=== PATIENT | male | born 1970 | race Caucasian/White ===

== ENCOUNTER 2021-06-01 10:54 | Outpatient (CLI) | payer MEDICAID, SELFPAY ==
[2021-06-01 11:32] LABS: Absolute Lymphocyte Count 3.02 X10^3/uL (0.83-4.51); Absolute Neutrophil Count 4.2 X10^3/uL (2.0-7.7); Basophil# 0.11 X10^3/uL; Basophil% 1.3 % (0-1); Eosinophils% 4.7 % (0-5); Hemoglobin 12.7 g/dL (13.0-16.5); Lymphocyte # 3.02 X10^3/ul (0.83-4.51); Lymphocyte % 35.6 % (19-41); Mean Corp Hgb Conc 33.4 g/dL (32-36); Mean Corpuscular Hgb 30.2 pg (27.0-32.0); Mean Corpuscular Volume 90.3 fL (80-94); Mean Platelet Vol. 9.1 fl (6.2-12.0); Monocyte# 0.71 X10^3/uL; Monocyte% 8.4 % (0-10); NRBC Flagged by Analyzer 0 % (0-5); Neutrophil # 4.23 X10^3/uL (2.7-7.7); Neutrophil % 49.8 % (47-70); Platelet Count 345 K/mm3 (150-450); RBC Distribution Width CV 13.2 % (11.6-14.6); RBC Distribution Width SD 43.6 fl (35.1-43.9); Red Blood Count 4.21 M/mm3 (4.6-6.2); White Blood Count 8.5 K/mm3 (4.4-11.0)
[2021-06-01 12:01] LABS: Hemoglobin A1c 5.4 % (3.8-5.6)
[2021-06-01 12:04] LABS: Vitamin B12 335 pg/mL (211-911); Vitamin D,25 Hydroxy 17.6 ng/mL
[2021-06-01 12:15] LABS: ALB/GLOB Ratio 0.9 RATIO (0.9-2.4); AST(SGOT) 17 U/L (15-37); Alanine Aminotransfer ALT/SGPT 32 U/L (16-61); Albumin, Serum 3.2 g/dL (3.2-5.0); Alkaline Phosphatase 104 U/L (45-117); Anion Gap 4 (5-15); BUN 12 mg/dL (7-18); BUN/Creat Ratio 14.9 RATIO (10-20); Calcium,Total 8.6 mg/dL (8.5-10.1); Chloride 108 mmol/L (98-107); Cholesterol 187 mg/dL (200); Creatinine, Serum 0.81 mg/dL (0.70-1.30); EST Glomerular Filtration Rate 107 mL/min (>60); Est Glom Filt Rate - Afr Amer 129 mL/min (>60); Globulin 3.5 g/dL (2.2-4.2); Glucose 87 mg/dL (74-106); High Density Lipoprotein 39 mg/dL; Potassium 3.8 mmol/L (3.5-5.1); Protein, Total 6.7 g/dL (6.4-8.2); Sodium Level 140 mmol/L (136-145); Thyroid Stim Hormone (TSH) 1.36 uIU/mL (0.358-3.74); Triglycerides 127 mg/dL; Very Low Density Lipoprotein 25 mg/dL (5-40)
[2021-06-02 21:04] LABS: PSA, Total 0.5 ng/mL (0.0-4.0)
== END 2021-06-01 23:59 | disposition home or self-care (01) ==
PROVIDERS: Visit Provider Nurse Practitioner Adult Health
DX: Z13.1 Encounter for screening for diabetes mellitus (principal); F33.2 Major depressive disorder, recurrent severe without psychotic features; F41.1 Generalized anxiety disorder; F90.2 Attention-deficit hyperactivity disorder, combined type; Z13.21 Encounter for screening for nutritional disorder; Z12.5 Encounter for screening for malignant neoplasm of prostate; G47.00 Insomnia, unspecified
CPT/HCPCS: 36415; 80053; 80061; 82306; 82607; 83036; 84153; 84443; 85025

== ENCOUNTER → 2021-11-09 | Outpatient (CLI) | payer MEDICAID, SELFPAY ==
[2021-11-09 17:57] LABS: Absolute Lymphocyte Count 1.91 X10^3/uL (0.83-4.51); Absolute Neutrophil Count 9.3 X10^3/uL (2.0-7.7); Basophil# 0.13 X10^3/uL; Eosinophil# 0.35 X10^3/uL; Eosinophils% 2.8 % (0-5); Hematocrit 40.3 % (40-54); Hemoglobin 13.4 g/dL (13.0-16.5); Lymphocyte # 1.91 X10^3/ul (0.83-4.51); Lymphocyte % 15.4 % (19-41); Mean Corp Hgb Conc 33.3 g/dL (32-36); Mean Corpuscular Hgb 29.1 pg (27.0-32.0); Mean Corpuscular Volume 87.4 fL (80-94); Mean Platelet Vol. 8.6 fl (6.2-12.0); Monocyte% 5.6 % (0-10); NRBC Flagged by Analyzer 0 % (0-5); Neutrophil # 9.27 X10^3/uL (2.7-7.7); Neutrophil % 74.8 % (47-70); Platelet Count 330 K/mm3 (150-450); RBC Distribution Width CV 13.2 % (11.6-14.6); RBC Distribution Width SD 42.3 fl (35.1-43.9); Red Blood Count 4.61 M/mm3 (4.6-6.2); White Blood Count 12.4 K/mm3 (4.4-11.0)
[2021-11-09 18:49] LABS: Vitamin B12 452 pg/mL (211-911); Vitamin D,25 Hydroxy 37.1 ng/mL
[2021-11-09 18:55] LABS: ALB/GLOB Ratio 0.9 RATIO (0.9-2.4); AST(SGOT) 18 U/L (15-37); Alanine Aminotransfer ALT/SGPT 25 U/L (16-61); Albumin, Serum 3.7 g/dL (3.2-5.0); Alkaline Phosphatase 97 U/L (45-117); Anion Gap 7 (5-15); BUN 10 mg/dL (7-18); Calcium,Total 9.3 mg/dL (8.5-10.1); Chloride 106 mmol/L (98-107); Cholesterol 261 mg/dL (200); EST Glomerular Filtration Rate 83 mL/min (>60); Est Glom Filt Rate - Afr Amer 100 mL/min (>60); Globulin 3.9 g/dL (2.2-4.2); Glucose 93 mg/dL (74-106); High Density Lipoprotein 43 mg/dL; Iron 77 ug/dL (65-175); Iron Binding Capacity,Total 290 ug/dL (250-450); Potassium 3.9 mmol/L (3.5-5.1); Protein, Total 7.6 g/dL (6.4-8.2); Sodium Level 140 mmol/L (136-145); T4 Free Direct 0.61 ng/dL (0.76-1.46); Thyroid Stim Hormone (TSH) 2.36 uIU/mL (0.358-3.74); Triglycerides 235 mg/dL; Very Low Density Lipoprotein 47 mg/dL (5-40)
== END | disposition home or self-care (01) ==
LOC: LAB 17:40
PROVIDERS: Referring Provider Nurse Practitioner Adult Health; Visit Provider Nurse Practitioner Adult Health
DX: G25.0 Essential tremor (principal)
CPT/HCPCS: 80053; 80061; 82306; 82607; 83540; 83550; 84439; 84443; 85025

== ENCOUNTER 2021-11-23 20:54 | Emergency (ER) | payer MEDICAID, SELFPAY ==
[2021-11-23 20:55] VITALS: BP 156/82; PULSE 91; RESP 15; TEMP 36.8; O2SAT 97; BMI 34.2
--- NOTE | 2021-11-23 22:22 | EX.ED.VIS.EY ---
HPI History of Present Illness Chief Complaint: Eye Problem Narrative Narrative: Patient is a 51-year-old male with past medical history of cataract status post surgery insomnia and depression/anxiety. He states that he had bilateral cataract surgery approximately 2 months ago. He states since that time he has been having a glare to his vision. He states that he is followed up with the upsetting machine operator and they have just told him that he may have dry eyes. He states he is also noticed dark spots in his vision that can change when he moves his eye. He states that this is bilaterally and it can come and go. He states he feels like it was a little more severe today and secondary to this comes in for evaluation [facility] Medical History Anxiety Cataract (lens) fragments in eye following cataract surgery, bilateral Depression Smoker Home Medications brexpiprazole 2 mg tablet (Rexulti) 2 tab PO DAILY 11/23/21 [History Last Taken Unknown] buspirone 7.5 mg tablet 7.5 tab PO DAILY 11/23/21 [History Last Taken Unknown] fluoxetine 40 mg capsule 80 cap PO DAILY 11/23/21 [History Last Taken Unknown] methylphenidate HCl 20 mg tablet (Ritalin) 60 tab PO DAILY 11/23/21 [History Last Taken Unknown] prazosin 1 mg capsule 2 mg PO QHS 11/23/21 [History Last Taken Unknown] prazosin 1 mg capsule (Minipress) 1 cap PO LUNCH 11/23/21 [History Last Taken Unknown] zolpidem 10 mg tablet (Ambien) 10 tab PO QHS 11/23/21 [History Last Taken Unknown] Allergy/AdvReac Type Severity Reaction Status Date / Time No Known Allergies Allergy Verified 11/23/21 20:58 Social History Smoking Status: Current every day smoker tobacco type: e-cigarettes ROS ROS ED Constitutional Constitutional ED: Denies chills or fever(s) Eyes Eyes: Reports change in vision ENT ENT ED: Denies sore throat Cardiovascular Cardiovascular: Denies chest pain Respiratory/Chest Respiratory/Chest: Denies cough or dyspnea Gastrointestinal Gastrointestinal: Denies abdominal pain, diarrhea, nausea or vomiting Genitourinary Genitourinary ED: Denies dysuria Musculoskeletal Musculoskeletal: Denies myalgias Integumentary Denies rash Neurologic Neurologic: Denies headache(s) Hematologic/Lymphatic Hematologic/Lymphatic: Denies easy bleeding or easy bruising EXAM Physical Exam Const Vital Signs: 11/23/21 20:55 Temperature 98.2 F Temperature Source Temporal Pulse Rate 91 Respiratory Rate 15 Blood Pressure 156/82 H Blood Pressure Mean 106 Pulse Ox 97 Oxygen Delivery Method Room Air Positive well nourished and well developed General Appearance ED: well developed Eyes PERRL and EOMs intact bilaterally Eyes Narrative: No pale macula noted no blood and thunder appearance noted. Patient does have normal geronimo of vision in both eyes. Neck supple Resp normal respiratory effort and clear to auscultation bilaterally Cardio regular rate and regular rhythm Extremity normal to inspection Neuro oriented x3 and CN's II-XII intact bilaterally Sensorium / Orientation: alert Psych Psych Narrative: Patient has a flat affect Skin no rashes or lesions noted MDM MDM MDM Narrative Medical decision making narrative: Patient presented to the ER with a normal neurologic exam. He reported the symptoms have been present for months. There was no loss of vision from either eye there is no physical exam findings suggesting retinal artery or vein occlusion. He talked about how the dark spots or change positions with eye movement indicating this is most likely vitreous floater. We discussed possible work-up in the ER but his exam does not suggest infection trauma or stroke and therefore do not feel is necessary for head CT or blood work. Patient wishes for a second opinion and therefore he will be referred to [facility]. However at this time as his exam is consistent with vitreous floaters and there is no signs of a acute vision loss such as retinal artery or vein occlusion retinal detachment or eye trauma he is otherwise safe for discharge Discharge Plan Triage Chief Complaint: Eye Problem ED Provider: Franklyn Callahan Dx/Rx/DC Orders Clinical Impression: Vitreous floaters of both eyes Instructions: What Are Flashes and Floaters? Prescriptions: No Action fluoxetine 40 mg capsule 80 cap PO DAILY Label Comments: TAKE 2 CAPSULES BY MOUTH ONCE DAILY methylphenidate HCl [Ritalin] 20 mg tablet 60 tab PO DAILY Label Comments: TAKE 1 TABLET THREE TIMES DAILY prazosin 1 mg capsule 2 mg PO QHS Label Comments: take 1 capsule daily at 2 pm and 2 capsules by mouth at bedtime prazosin [Minipress] 1 mg capsule 1 cap PO LUNCH Label Comments: take 1 capsule daily at 2 pm and 2 capsules by mouth at bedtime buspirone 7.5 mg tablet 7.5 tab PO DAILY Label Comments: TAKE 1 TABLET BY MOUTH TWICE DAILY zolpidem [Ambien] 10 mg tablet 10 tab PO QHS Label Comments: TAKE 1 TABLET BY MOUTH EVERY EVENING for insomnia. Rexulti 2 mg tablet 2 tab PO DAILY Label Comments: take one tablet by mouth every morning Primary Care Provider: [facility],Rosangela Sy Referrals: Best Corbett MD [Med Staff - Active Staff] - [facility] [Primary Care Provider] - Activity Restrictions/Additional Instructions: Please follow-up with ophthalmology for repeat evaluation and return to the ER should you have any further concerns Disposition Disposition: Home, Self Care Discharge Date/Time: 11/23/21 22:34
[2021-11-23 22:34] VITALS: BP 154/60; PULSE 87; RESP 18
== END 2021-11-23 22:34 | disposition home or self-care (01) ==
PROVIDERS: Emergency Provider Emergency Medicine; Visit Provider Emergency Medicine
DX: H43.393 Other vitreous opacities, bilateral (principal); F17.290 Nicotine dependence, other tobacco product, uncomplicated
CPT/HCPCS: 99282

== ENCOUNTER 2022-03-06 18:35 | Emergency (ER) | payer MEDICAID, SELFPAY ==
[2022-03-06 18:35] VITALS: BP 121/71; PULSE 101; RESP 16; TEMP 36.8; O2SAT 96; BMI 33.3
--- NOTE | 2022-03-06 19:33 | CT_ITS ---
INDICATION: trauma EXAMINATION: CT Spine Cervical W/O Contrast Injection TECHNIQUE: Helically acquired images were obtained of the cervical spine. 2D reformatted images were reviewed. A radiation dose optimization technique was used for this scan. IV Contrast dosage and agent: None. COMPARISON: None. FINDINGS: VERTEBRAE: No fracture or traumatic subluxation. No discrete lytic or blastic abnormality. Normal alignment. Normal craniocervical junction and cervicothoracic junction. DISCS and SPINAL CANAL: Moderate multilevel degenerative disc disease and spondylosis. No critical stenosis. NECK SOFT TISSUES: No prevertebral soft tissue swelling. There is no cervical adenopathy. LUNG APICES: Clear. CT/Spine Cervical without Contras IMPRESSION: No evidence of acute cervical spinal fracture or spondylolisthesis. Moderate multilevel degenerative disc disease and spondylosis. Electronically Signed: Hunter Alexandre MD at 21:19 EST ,
--- NOTE | 2022-03-06 19:33 | CT_ITS ---
EXAMINATION : Head CT w/out contrast HISTORY : trauma COMPARISON : None. TECHNIQUE : Multiple contiguous axial images were obtained from the skull base to the vertex without intravenous contrast. A radiation dose optimization technique was used for this scan. FINDINGS : The ventricles and sulci are normal in size. There is no evidence for acute intracranial hemorrhage, mass effect, or midline shift. There is no extra-axial fluid collection. There is normal gibson-white differentiation, without CT evidence of acute ischemia or infarct. The skull base and calvarium are unremarkable. The orbits are unremarkable. The paranasal sinuses are clear. The mastoid air cells are well-aerated. The soft tissues are unremarkable. CT/Brain/Head without Contrast IMPRESSION: No acute intracranial abnormality. Electronically Signed: Hunter Alexandre MD at 21:18 EST ,
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
--- NOTE | 2022-03-06 20:00 | RAD_ITS ---
INDICATION: trauma EXAMINATION/TECHNIQUE: X-RAY - XR Spine Lumbar 2 or 3 Views COMPARISON: None. FINDINGS: VERTEBRAE: Preserved vertebral body height. No fracture. No spondylolisthesis. Preservation of the normal lumbar lordosis. Moderate multilevel facet arthropathy. DISCS: Moderate multilevel degenerative disc disease and spondylosis. INCLUDED ABDOMEN: Included bowel gas pattern is non-obstructive. RAD/Lumbar Spine 2 or 3 Views IMPRESSION: No evidence of lumbar spinal fracture or spondylolisthesis. Moderate multilevel degenerative disc disease and spondylosis. Electronically Signed: Hunter Alexandre MD at 21:20 EST ,
[2022-03-06 21:37] VITALS: BP 110/68; PULSE 90; RESP 15; O2SAT 98
== END 2022-03-06 21:38 | disposition home or self-care (01) ==
PROVIDERS: Emergency Provider Emergency Medicine; Visit Provider Emergency Medicine
DX: S06.0X0A Concussion without loss of consciousness, initial encounter (principal); F17.290 Nicotine dependence, other tobacco product, uncomplicated; W10.9XXA Fall (on) (from) unspecified stairs and steps, initial encounter
CPT/HCPCS: 70450; 72100; 72125; 99284

== ENCOUNTER 2022-09-23 21:24 | Emergency (ER) | payer MEDICAID, SELFPAY ==
[2022-09-23 21:25] VITALS: TEMP 36.1; BMI 31.7
[2022-09-23 21:37] VITALS: BP 133/75; PULSE 67; RESP 20; O2SAT 93
--- NOTE | 2022-09-23 22:09 | EKG12_ITS ---
Test Reason : DYSRHYTHMIA Blood Pressure : / mmHG Vent. Rate : 078 BPM Atrial Rate : 078 BPM P-R Int : 164 ms QRS Dur : 104 ms QT Int : 414 ms P-R-T Axes : 057 032 047 degrees QTc Int : 471 ms Normal sinus rhythm Normal ECG Confirmed by JAYDA MCLAUGHLIN, RIANNA ([id number]), society editor DIANE ALVARADO ([id number]) on 09/25/2022 11:35:37 AM Referred By: HAIR Confirmed By:RIANNA MONTELONGO MD
--- NOTE | 2022-09-23 22:23 | ED.RN ---
pt refused covid swab and blood work. hitting at staff and swearing.
--- NOTE | 2022-09-23 22:27 | ED.RN ---
physician discussed with pt to stay for labs, otherwise he can get his clothes and leave the ED. Pt yelling at staff, getting dressed.
[2022-09-23 22:46] LABS: Amphetamine Urine VISTA NEGATIVE (<1000 ng/mL); Barbiturate Urine VISTA NEGATIVE (< 200 ng/mL); Benzodiazepine Urine VISTA NEGATIVE (< 200 ng/mL); Cocaine Urine VISTA NEGATIVE (< 300 ng/mL); Ecstacy Urine VISTA NEGATIVE (< 500 ng/mL); Methadone Urine VISTA NEGATIVE (< 300 ng/mL); PCP Urine VISTA NEGATIVE (< 25 ng/mL); THC Urine VISTA POSITIVE (< 50 ng/mL); Vista UDS pH Range 6
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
== END 2022-09-23 22:32 | disposition home or self-care (01) ==
PROVIDERS: Emergency Provider Emergency Medicine; Visit Provider Emergency Medicine
DX: F32.A Depression, unspecified (principal); F10.129 Alcohol abuse with intoxication, unspecified; Z79.899 Other long term (current) drug therapy; F41.9 Anxiety disorder, unspecified; F17.290 Nicotine dependence, other tobacco product, uncomplicated
CPT/HCPCS: 80307; 93005; 99283

== ENCOUNTER 2022-09-24 00:37 | Outpatient (REF) | payer SELFPAY ==
[2022-09-24 00:38] VITALS: BP 120/65; PULSE 91; RESP 18; TEMP 36.6; O2SAT 95; BMI 32.1
[2022-09-24] MEDS: Diphth,Pertuss(Acell),Tet Vac 0.5 ML Vial IM (00:46)
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
== END 2022-09-24 01:06 ==
LOC: ED 00:37
PROVIDERS: Visit Provider Emergency Medicine
DX: R45.851 Suicidal ideations (principal); F10.129 Alcohol abuse with intoxication, unspecified; X78.9XXA Intentional self-harm by unspecified sharp object, initial encounter; Y90.9 Presence of alcohol in blood, level not specified; S51.812A Laceration without foreign body of left forearm, initial encounter; R45.850 Homicidal ideations; F41.9 Anxiety disorder, unspecified; F32.A Depression, unspecified; F17.290 Nicotine dependence, other tobacco product, uncomplicated; Z79.899 Other long term (current) drug therapy; Z23 Encounter for immunization
CPT/HCPCS: 12002; 90715; 90471

== ENCOUNTER 2022-09-25 10:53 | Emergency (ER) | payer MEDICAID, SELFPAY ==
[2022-09-25 10:53] VITALS: BP 135/80; PULSE 66; RESP 16; TEMP 36.7; O2SAT 100; BMI 30.2
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
[2022-09-25] MEDS: Acetaminophen 325 MG Tablet 650 MG PO (12:33)
[2022-09-25 13:00] VITALS: BP 124/78; PULSE 78; RESP 16; O2SAT 98
[2022-09-25 13:06] LABS: Absolute Lymphocyte Count 2.47 X10^3/uL (0.83-4.51); Absolute Neutrophil Count 6.8 X10^3/uL (2.0-7.7); Basophil% 0.9 % (0-1); Eosinophil# 0.52 X10^3/uL; Eosinophils% 4.9 % (0-5); Hematocrit 38.2 % (40-54); Hemoglobin 12.6 g/dL (13.0-16.5); Lymphocyte # 2.47 X10^3/ul (0.83-4.51); Lymphocyte % 23.3 % (19-41); Mean Corpuscular Hgb 28.6 pg (27.0-32.0); Mean Corpuscular Volume 86.6 fL (80-94); Mean Platelet Vol. 8.4 fl (6.2-12.0); Monocyte# 0.72 X10^3/uL; Monocyte% 6.8 % (0-10); NRBC Flagged by Analyzer 0 % (0-5); Neutrophil # 6.77 X10^3/uL (2.7-7.7); Neutrophil % 63.7 % (47-70); Platelet Count 299 K/mm3 (150-450); RBC Distribution Width CV 13.7 % (11.6-14.6); RBC Distribution Width SD 43.9 fl (35.1-43.9); Red Blood Count 4.41 M/mm3 (4.6-6.2); White Blood Count 10.6 K/mm3 (4.4-11.0)
[2022-09-25 13:19] LABS: Anion Gap 6 (5-15); BUN 9 mg/dL (7-18); Calcium,Total 8.7 mg/dL (8.5-10.1); Chloride 106 mmol/L (98-107); EST Glomerular Filtration Rate 94 mL/min (>60); Est Glom Filt Rate - Afr Amer 113 mL/min (>60); Estimated Creatinine Clearance 93.83 ml/min; Glucose 96 mg/dL (74-106); Potassium 3.7 mmol/L (3.5-5.1); Sodium Level 140 mmol/L (136-145)
[2022-09-25 13:39] LABS: Alcohol, Blood (Medical)-Serum < 3.0 mg/dL
[2022-09-25 13:52] LABS: Amphetamine Urine VISTA NEGATIVE (<1000 ng/mL); Barbiturate Urine VISTA NEGATIVE (< 200 ng/mL); Benzodiazepine Urine VISTA NEGATIVE (< 200 ng/mL); Cocaine Urine VISTA NEGATIVE (< 300 ng/mL); Ecstacy Urine VISTA NEGATIVE (< 500 ng/mL); Methadone Urine VISTA NEGATIVE (< 300 ng/mL); PCP Urine VISTA NEGATIVE (< 25 ng/mL); THC Urine VISTA POSITIVE (< 50 ng/mL); Vista UDS pH Range 6
--- NOTE | 2022-09-25 15:51 | NURSING ---
FAXED CHART TO CRISIS
[2022-09-25] MEDS: tiZANidine HCl 2 MG Tablet 4 MG PO (16:09)
[2022-09-25] MEDS: Fluoxetine HCl 40 MG CAPSULE 80 MG PO (16:09)
[2022-09-25] MEDS: Methylphenidate HCl 5 MG Tablet 20 MG PO (16:09)
[2022-09-25 17:00] VITALS: BP 132/81; PULSE 81; RESP 16; O2SAT 99
[2022-09-25 20:00] VITALS: RESP 16
[2022-09-25] MEDS: Zolpidem Tartrate 5 MG Tablet PO (20:58)
[2022-09-25 22:35] VITALS: RESP 16
[2022-09-26 00:40] VITALS: RESP 16
[2022-09-26] MEDS: LORazepam 1 MG Tablet PO (02:43)
[2022-09-26 02:45] VITALS: BP 142/79; PULSE 89; RESP 18; O2SAT 100
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
[2022-09-26 06:52] VITALS: BP 136/70; PULSE 75; RESP 18
== END 2022-09-26 06:56 ==
LOC: ED 12:17
PROVIDERS: Emergency Provider Emergency Medicine; Visit Provider Emergency Medicine
DX: F10.129 Alcohol abuse with intoxication, unspecified (principal); S51.812A Laceration without foreign body of left forearm, initial encounter; Y04.8XXA Assault by other bodily force, initial encounter; F17.210 Nicotine dependence, cigarettes, uncomplicated; F32.A Depression, unspecified; Y90.9 Presence of alcohol in blood, level not specified
CPT/HCPCS: 80048; 80307; 82077; 85025; 99285

== ENCOUNTER 2022-10-01 20:41 | Emergency (ER) | payer MEDICAID, SELFPAY ==
[2022-10-01 20:41] VITALS: BP 113/62; PULSE 94; RESP 18; TEMP 36.8; O2SAT 97; BMI 32.7
--- NOTE | 2022-10-01 21:11 | CT_ITS ---
EXAM: CT HEAD WITHOUT INTRAVENOUS CONTRAST CLINICAL INDICATION: Head injury TECHNIQUE: Multiple axial images were obtained of the head without intravenous contrast. This CT exam was performed using one or more of the following dose reduction techniques: automated exposure control, adjustment of the mA and/or kV according to patient size, and/or use of iterative reconstruction technique. RADIATION DOSE: CTDIvol = 44.99 mGy, DLP = 846.73 mGy-cm COMPARISON: March 06, 2022. FINDINGS: BRAIN AND EXTRA-AXIAL SPACES: Unremarkable. No intra- or extra-axial hemorrhage. No evidence of acute infarct. No intracranial mass or mass effect. There is preservation of the miller/white matter interface. Posterior fossa structures are unremarkable. Ventricles are appropriate for age. No hydrocephalus. Basal cisterns are patent. BONES/JOINTS: See below. SOFT TISSUES: There is laceration and contusion in the right posterior lateral scalp. No underlying skull fracture. SINUSES: Right nasal septal deviation and large left cruz bullosa severely noted. The floors of the maxillary sinuses are not included. MASTOID AIR CELLS: Unremarkable. Clear. ORBITS: Visualized globes, extraocular muscles, optic nerves and retrobulbar fat appear unremarkable. CT/Brain/Head without Contrast IMPRESSION: No acute intracranial abnormality. Scalp laceration and contusion. Electronically Signed: Britt Reid MD at 22:22 EDT ,
[2022-10-01 21:27] LABS: Absolute Lymphocyte Count 3.23 X10^3/uL (0.83-4.51); Absolute Neutrophil Count 5.8 X10^3/uL (2.0-7.7); Basophil# 0.09 X10^3/uL; Basophil% 0.9 % (0-1); Eosinophil# 0.33 X10^3/uL; Eosinophils% 3.2 % (0-5); Hematocrit 33.8 % (40-54); Hemoglobin 11.4 g/dL (13.0-16.5); Lymphocyte # 3.23 X10^3/ul (0.83-4.51); Lymphocyte % 31.4 % (19-41); Mean Corp Hgb Conc 33.7 g/dL (32-36); Mean Corpuscular Hgb 29.2 pg (27.0-32.0); Mean Corpuscular Volume 86.4 fL (80-94); Mean Platelet Vol. 9.1 fl (6.2-12.0); Monocyte# 0.76 X10^3/uL; Monocyte% 7.4 % (0-10); NRBC Flagged by Analyzer 0 % (0-5); Neutrophil # 5.82 X10^3/uL (2.7-7.7); Neutrophil % 56.5 % (47-70); Platelet Count 256 K/mm3 (150-450); RBC Distribution Width CV 13.2 % (11.6-14.6); RBC Distribution Width SD 41.5 fl (35.1-43.9); Red Blood Count 3.91 M/mm3 (4.6-6.2); White Blood Count 10.3 K/mm3 (4.4-11.0)
[2022-10-01] MEDS: 0.9% Normal Saline 1,000 ML 1000 ML IV (21:46)
[2022-10-01] MEDS: Lidocaine 1% /Epi 1:100 (20ml) 20 ML Vial INFILT (21:47)
[2022-10-01 21:48] VITALS: BP 122/78; RESP 18; O2SAT 96
[2022-10-01 21:48] LABS: ALB/GLOB Ratio 0.9 RATIO (0.9-2.4); AST(SGOT) 17 U/L (15-37); Alanine Aminotransfer ALT/SGPT 24 U/L (16-61); Albumin, Serum 3.2 g/dL (3.2-5.0); Alkaline Phosphatase 78 U/L (45-117); Anion Gap 8 (5-15); BUN 12 mg/dL (7-18); BUN/Creat Ratio 15.3 RATIO (10-20); Calcium,Total 8.6 mg/dL (8.5-10.1); Chloride 105 mmol/L (98-107); Creatinine, Serum 0.78 mg/dL (0.70-1.30); EST Glomerular Filtration Rate 110 mL/min (>60); Est Glom Filt Rate - Afr Amer 133 mL/min (>60); Estimated Creatinine Clearance 104.74 ml/min; Globulin 3.5 g/dL (2.2-4.2); Glucose 103 mg/dL (74-106); Potassium 3.4 mmol/L (3.5-5.1); Protein, Total 6.7 g/dL (6.4-8.2); Sodium Level 139 mmol/L (136-145); Troponin-I HS 11 pg/mL (3.0-78.0)
[2022-10-01 22:12] VITALS: BP 142/67; PULSE 83; RESP 16; O2SAT 97
--- NOTE | 2022-10-01 23:55 | ED.RN ---
pt yelling out. pt found laying on the floor covered in pee. pt assisted back to bed x2. no new injuries noted. slight bleeding to back of head where lac already was. Dr. Welch notified. no new orders. vs 115/63 hr 70 O2 97% RA.
[2022-10-02] VITALS: BP 111/46; PULSE 79; RESP 17; O2SAT 95
[2022-10-02 00:21] LABS: Bacteria 0 SEEN /hpf (None Seen); Mucous, Urine 0 SEEN /hpf (<or=2+); Red Blood Cells-Urine 0 SEEN /hpf (0-5); Squamous Epithelial Cells - UA 0 SEEN /hpf (0-5); White Blood Cells 0 SEEN /hpf (0-5)
[2022-10-02 00:42] LABS: Color, Urine Yellow (Yellow); Glucose, Dipstick Normal (Normal); Ketone-Dipstick Negative (Negative); Leukocyte Esterase-Dipstick Negative /ul (Negative); Nitrite-Dipstick Negative (Negative); Occult Blood-Urine Negative /ul (Negative); Protein-Dipstick Negative (Negative); Specific Gravity, Urine 1.005 (1.002-1.030); Urine Bilirubin Dipstick Negative (Negative); Urine Clarity Clear (Clear); Urine Urobilinogen Normal (Normal)
[2022-10-02 01:00] VITALS: BP 106/55; PULSE 79; RESP 15; O2SAT 99
[2022-10-02 01:06] LABS: Amphetamine Urine VISTA NEGATIVE (<1000 ng/mL); Barbiturate Urine VISTA NEGATIVE (< 200 ng/mL); Benzodiazepine Urine VISTA NEGATIVE (< 200 ng/mL); Cocaine Urine VISTA NEGATIVE (< 300 ng/mL); Ecstacy Urine VISTA NEGATIVE (< 500 ng/mL); Methadone Urine VISTA NEGATIVE (< 300 ng/mL); PCP Urine VISTA NEGATIVE (< 25 ng/mL); THC Urine VISTA NEGATIVE (< 50 ng/mL); Vista UDS pH Range 6
--- NOTE | 2022-10-02 01:31 | EX.ED.GENINJ ---
HPI History of Present Illness Chief Complaint: Fall Informant: EMS Limited: intoxicated and uncooperative Onset/Context/Timing Onset: Today Mechanism/Context: Fall Location: Occipital scalp Narrative Narrative: Patient presents with head injury that occurred tonight. Patient was found laying on the ground tonight. EMS noted laceration to his scalp. Patient is nonverbal. Patient is a poor informant. EMS reports they were called for patient being found laying on the sidewalk. EMS reports patient did wake up briefly and was asked if he had any neck pain. Patient denies any neck pain to EMS. Patient is moving all of his extremities and is uncooperative on my examination. Patient does not give any further history. PFSH PFSH Medical History Alcohol abuse Anxiety Cataract (lens) fragments in eye following cataract surgery, bilateral Depression Smoker Home Medications brexpiprazole 2 mg tablet (Rexulti) 2 tab PO DAILY 11/23/21 [History Last Taken Unknown] fluoxetine 40 mg capsule 80 cap PO DAILY 11/23/21 [History Last Taken Unknown] methylphenidate HCl 20 mg tablet (Ritalin) 20 tab PO TID 11/23/21 [History Last Taken Unknown] prazosin 1 mg capsule 2 mg PO QHS 11/23/21 [History Last Taken Unknown] prazosin 1 mg capsule (Minipress) 1 cap PO LUNCH 11/23/21 [History Last Taken Unknown] zolpidem 10 mg tablet (Ambien) 10 tab PO QHS 11/23/21 [History Last Taken Unknown] methylphenidate HCl 60 mg biphasic 30-70 capsule,extended release 60 mg PO DAILY 09/25/22 [History Last Taken Unknown] tizanidine 4 mg tablet 4 mg PO DAILY 09/25/22 [History Last Taken Unknown] Allergy/AdvReac Type Severity Reaction Status Date / Time No Known Allergies Allergy Verified 09/24/22 00:38 Social History Smoking Status: Current every day smoker tobacco type: e-cigarettes ROS ROS ED Review of Systems ROS Unobtainable: due to mental condition and due to mental status EXAM Physical Exam Const Vital Signs: 10/01/22 20:41 10/01/22 20:49 10/01/22 21:48 Temperature 98.2 F Temperature Source Axillary Pulse Rate 94 Respiratory Rate 18 18 Respiratory Effort Normal Non-Labored Respiratory Depth Normal Respiratory Pattern Normal Blood Pressure 113/62 122/78 H Blood Pressure Mean 79 92 Pulse Ox 97 96 Oxygen Delivery Method Room Air Room Air 10/01/22 22:12 10/02/22 00:00 10/02/22 01:00 Temperature Temperature Source Pulse Rate 83 79 79 Respiratory Rate 16 17 15 Respiratory Effort Respiratory Depth Respiratory Pattern Blood Pressure 142/67 H 111/46 L 106/55 L Blood Pressure Mean 92 67 72 Pulse Ox 97 95 99 Oxygen Delivery Method Room Air Room Air Room Air Positive well nourished and well developed General Appearance ED: well developed and NAD HEENT HEENT Narrative: There is a 4 cm full-thickness laceration over the right parietal/occipital scalp. There is moderate gapping of the wound margins. There is no foreign bodies. There is no bony crepitance or step-off noted. Neck full ROM Resp normal respiratory effort and clear to auscultation bilaterally Cardio regular rhythm Rate: regular rate GI non-tender Palpation: soft Neuro moves all extremities, no focal motor deficits and no sensory deficits noted Jolon Coma Scale: document GCS findings Spontaneous Localizes to Pain Confused 13 Sensorium / Orientation: alert Motor Exam: strength 5/5 throughout PROC Procedures Lacerations Right occipital/parietal scalp: Length: 4 cm Depth: Sub Q Shape: Linear Prep: Sterile Conditions and Chlorhexadine Laceration repair: Lidocaine with epi and Local Number of Sutures/Benge: 8 Suture Information: - (Wilian) MDM MDM MDM Narrative Medical decision making narrative: Differential diagnosis includes closed head injury, concussion, alcohol intoxication, intracranial bleeding, anemia, and electrolyte abnormality. CBC will be obtained to assess for leukocytosis and anemia. Comprehensive metabolic profile will be obtained to assess for electrolyte abnormality, renal function, and hepatic function. High-sensitivity troponin will be obtained to assess for cardiac ischemia. Urinalysis will be obtained to assess for urinary tract infection. Serum alcohol level will be obtained to assess for alcohol intoxication. Urine drug screen will be obtained to assess for substance abuse. CT scan of the brain will be obtained to assess for intracranial bleeding. Lab Data Attestation: I reviewed the patient's lab results. Lab results narrative: CBC was reviewed. There is a stable anemia with a hemoglobin of 11.4 and hematocrit of 33.8. Comprehensive metabolic profile was reviewed and was essentially within normal limits. High-sensitivity troponin was reviewed and was normal. Urinalysis was reviewed and was normal. Blood alcohol level was reviewed and was slightly elevated at 88. Urine tox screen was reviewed and was negative. Labs: Laboratory Results - last 24 hr 10/01/22 10/01/22 10/01/22 20:56 20:56 20:56 WBC 10.3 RBC 3.91 L Hgb 11.4 L Hct 33.8 L MCV 86.4 MCH 29.2 MCHC 33.7 RDW Std Deviation 41.5 RDW Coeff of Danish 13.2 Plt Count 256 MPV 9.1 Immature Gran % (Auto) 0.600 Neut % (Auto) 56.5 Lymph % (Auto) 31.4 [place] % (Auto) 7.4 Eos % (Auto) 3.2 Baso % (Auto) 0.9 Absolute Neuts (auto) 5.8 Absolute Lymphs (auto) 3.23 Nucleated RBC % 0 Sodium 139 Potassium 3.4 L Chloride 105 Carbon Dioxide 26.0 Anion Gap 8 BUN 12 Creatinine 0.78 Estim Creat Clear Calc 104.74 Est GFR (MDRD) Af Amer 133 Est GFR (MDRD) Non-Af 110 BUN/Creatinine Ratio 15.3 Glucose 103 Calcium 8.6 Total Bilirubin 0.20 AST 17 ALT 24 Alkaline Phosphatase 78 Troponin I High Sens 11 Total Protein 6.7 Albumin 3.2 Globulin 3.5 Albumin/Globulin Ratio 0.9 Urine Color Urine Clarity Urine pH Ur Specific [place] Urine Protein Urine Glucose (UA) Urine Ketones Urine Occult Blood Urine Nitrite Urine Bilirubin Urine Urobilinogen Ur Leukocyte Esterase Urine RBC Urine WBC Ur Squamous Epith Cells Urine Bacteria Urine Mucus Urine Opiates Screen Urine Methadone Screen Ur Barbiturates Screen Ur Phencyclidine Scrn Ur Amphetamines Screen MDMA (Ecstasy) Screen U Benzodiazepines Scrn Urine Cocaine Screen U Cannabinoids Screen Ur Drug Screen Comment Ethyl Alcohol 88.0 10/02/22 10/02/22 00:16 00:16 WBC RBC Hgb Hct MCV MCH MCHC RDW Std Deviation RDW Coeff of Danish Plt Count MPV Immature Gran % (Auto) Neut % (Auto) Lymph % (Auto) [place] % (Auto) Eos % (Auto) Baso % (Auto) Absolute Neuts (auto) Absolute Lymphs (auto) Nucleated RBC % Sodium Potassium Chloride Carbon Dioxide Anion Gap BUN Creatinine Estim Creat Clear Calc Est GFR (MDRD) Af Amer Est GFR (MDRD) Non-Af BUN/Creatinine Ratio Glucose Calcium Total Bilirubin AST ALT Alkaline Phosphatase Troponin I High Sens Total Protein Albumin Globulin Albumin/Globulin Ratio Urine Color Yellow Urine Clarity Clear Urine pH 7.0 Ur Specific [place] 1.005 Urine Protein Negative Urine Glucose (UA) Normal Urine Ketones Negative Urine Occult Blood Negative Urine Nitrite Negative Urine Bilirubin Negative Urine Urobilinogen Normal Ur Leukocyte Esterase Negative Urine RBC 0 SEEN Urine WBC 0 SEEN Ur Squamous Epith Cells 0 SEEN Urine Bacteria 0 SEEN Urine Mucus 0 SEEN Urine Opiates Screen NEGATIVE Urine Methadone Screen NEGATIVE Ur Barbiturates Screen NEGATIVE Ur Phencyclidine Scrn NEGATIVE Ur Amphetamines Screen NEGATIVE MDMA (Ecstasy) Screen NEGATIVE U Benzodiazepines Scrn NEGATIVE Urine Cocaine Screen NEGATIVE U Cannabinoids Screen NEGATIVE Ur Drug Screen Comment Ethyl Alcohol Radiography Diagnostic Testing: Clinical Impression(s) from Imaging Studies Brain CT 10/01/22 21:11 IMPRESSION: No acute intracranial abnormality. Scalp laceration and contusion. Electronically Signed: Britt Reid MD at 22:22 EDT , CT scan of the brain was obtained. There is no acute intracranial abnormality. There is a scalp laceration and contusion noted. This was interpreted by the radiologist and was also independently reviewed by myself. Treatment and Re-Evaluation Narrative: Patient was given a tetanus booster. The wound was cleaned and irrigated with copious months normal saline. The wound was anesthetized with 1% lidocaine with epinephrine. The wound was closed with 8 wilian. Patient tolerated the procedure well. Bacitracin dressing was applied. Patient was given head injury instructions. Patient was instructed to follow-up with his primary care physician in 5 to 7 days. Patient understood and was agreeable with the plan. All questions were answered. Discharge Plan Triage Chief Complaint: Fall ED Provider: Larry Welch Dx/Rx/DC Orders Clinical Impression: Laceration of scalp, Closed head injury, Alcohol intoxication Instructions: ED Head Injury (Adult), ED Laceration Scalp Stitches or Benge Prescriptions: No Action fluoxetine 40 mg capsule 80 cap PO DAILY Label Comments: TAKE 2 CAPSULES BY MOUTH ONCE DAILY methylphenidate HCl [Ritalin] 20 mg tablet 20 tab PO TID Label Comments: TAKE 1 TABLET THREE TIMES DAILY prazosin 1 mg capsule 2 mg PO QHS Label Comments: take 1 capsule daily at 2 pm and 2 capsules by mouth at bedtime prazosin [Minipress] 1 mg capsule 1 cap PO LUNCH Label Comments: take 1 capsule daily at 2 pm and 2 capsules by mouth at bedtime zolpidem [Ambien] 10 mg tablet 10 tab PO QHS Label Comments: TAKE 1 TABLET BY MOUTH EVERY EVENING for insomnia. Rexulti 2 mg tablet 2 tab PO DAILY Label Comments: take one tablet by mouth every morning tizanidine 4 mg tablet 4 mg PO DAILY Label Comments: take one tab once daily as needed for muscle pain methylphenidate HCl 60 mg capsule, ER biphasic 30-70 60 mg PO DAILY Label Comments: TAKE 1 CAPSULE BY MOUTH ONCE DAILY in the afternoon Primary Care Provider: [facility] Rosangela Small Referrals: [facility] Rosangela Small [Primary Care Provider] - 7 Days for suture removal Disposition Disposition: Home, Self Care
[2022-10-02 02:00] VITALS: RESP 14
[2022-10-02 03:00] VITALS: RESP 15
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
[2022-10-02 03:57] VITALS: RESP 16
== END 2022-10-02 04:18 | disposition home or self-care (01) ==
PROVIDERS: Emergency Provider Emergency Medicine; Visit Provider Emergency Medicine
DX: S01.01XA Laceration without foreign body of scalp, initial encounter (principal); F10.129 Alcohol abuse with intoxication, unspecified; S09.90XA Unspecified injury of head, initial encounter; F17.290 Nicotine dependence, other tobacco product, uncomplicated; X58.XXXA Exposure to other specified factors, initial encounter
CPT/HCPCS: 12002; 70450; 80053; 80307; 80320; 81001; 84484; 85025; 90715; A4216; J7030; 82077

== ENCOUNTER 2022-10-02 08:28 | Emergency (ER) | payer MEDICAID, SELFPAY ==
[2022-10-02 08:29] VITALS: BP 114/65; PULSE 105; RESP 16; TEMP 36.8; O2SAT 97; BMI 29.9
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
[2022-10-02 09:11] LABS: Absolute Lymphocyte Count 1.93 X10^3/uL (0.83-4.51); Absolute Neutrophil Count 12.3 X10^3/uL (2.0-7.7); Basophil% 0.6 % (0-1); Eosinophils% 0.6 % (0-5); Hematocrit 36.4 % (40-54); Hemoglobin 11.9 g/dL (13.0-16.5); Lymphocyte # 1.93 X10^3/ul (0.83-4.51); Lymphocyte % 12.4 % (19-41); Mean Corp Hgb Conc 32.7 g/dL (32-36); Mean Corpuscular Hgb 28.9 pg (27.0-32.0); Mean Corpuscular Volume 88.3 fL (80-94); Mean Platelet Vol. 9.2 fl (6.2-12.0); Monocyte# 0.94 X10^3/uL; Monocyte% 6.1 % (0-10); NRBC Flagged by Analyzer 0 % (0-5); Neutrophil # 12.33 X10^3/uL (2.7-7.7); Neutrophil % 79.5 % (47-70); Platelet Count 307 K/mm3 (150-450); RBC Distribution Width CV 13.4 % (11.6-14.6); RBC Distribution Width SD 43.5 fl (35.1-43.9); Red Blood Count 4.12 M/mm3 (4.6-6.2); White Blood Count 15.5 K/mm3 (4.4-11.0)
[2022-10-02 09:27] LABS: AST(SGOT) 25 U/L (15-37); Alanine Aminotransfer ALT/SGPT 26 U/L (16-61); Albumin, Serum 3.6 g/dL (3.2-5.0); Alkaline Phosphatase 86 U/L (45-117); Anion Gap 11 (5-15); BUN 11 mg/dL (7-18); BUN/Creat Ratio 11.9 RATIO (10-20); Calcium,Total 9.1 mg/dL (8.5-10.1); Chloride 107 mmol/L (98-107); Creatinine, Serum 0.92 mg/dL (0.70-1.30); EST Glomerular Filtration Rate 91 mL/min (>60); Est Glom Filt Rate - Afr Amer 110 mL/min (>60); Globulin 3.5 g/dL (2.2-4.2); Glucose 87 mg/dL (74-106); Potassium 3.7 mmol/L (3.5-5.1); Protein, Total 7.1 g/dL (6.4-8.2); Sodium Level 141 mmol/L (136-145)
[2022-10-02 09:55] LABS: Amphetamine Urine VISTA NEGATIVE (<1000 ng/mL); Barbiturate Urine VISTA NEGATIVE (< 200 ng/mL); Benzodiazepine Urine VISTA NEGATIVE (< 200 ng/mL); Cocaine Urine VISTA NEGATIVE (< 300 ng/mL); Ecstacy Urine VISTA NEGATIVE (< 500 ng/mL); Methadone Urine VISTA NEGATIVE (< 300 ng/mL); PCP Urine VISTA NEGATIVE (< 25 ng/mL); THC Urine VISTA NEGATIVE (< 50 ng/mL); Vista UDS pH Range 6
[2022-10-02 10:10] VITALS: BP 136/76; PULSE 72; RESP 14; TEMP 36.4; O2SAT 100
== END 2022-10-02 10:11 | disposition home or self-care (01) ==
PROVIDERS: Emergency Provider Emergency Medicine; Visit Provider Emergency Medicine
DX: R55 Syncope and collapse (principal); F17.290 Nicotine dependence, other tobacco product, uncomplicated
CPT/HCPCS: 80053; 80307; 80320; 85025; A4216; 82077

== ENCOUNTER 2022-10-02 16:37 | Emergency (ER) | payer MEDICAID, SELFPAY ==
[2022-10-02] VITALS (7 sets, daily range): BP systolic 105–108; BP diastolic 58–65; PULSE 84–102; RESP 16–18; TEMP 36.4; O2SAT 94–95; BMI 31.4
--- NOTE | 2022-10-02 18:24 | EDS_ITS ---
HPI History of Present Illness Chief Complaint: Suicidal Narrative Narrative: Patient was recently seen here twice today, I did see him last week also apparently he is more altered, he was seen earlier had an unremarkable alcohol but he was seen for mental status changes which improved. The paramedics did find ambulate in his room. Apparently he is walking around his hotel room stumbling and monitoring words. Similar presentations the past 2 times. He was here. If I redirect him he gives me a history and review of systems however he falls asleep right away and then he does get off track quite easily. PFSH PFSH Medical History Alcohol abuse Anxiety Cataract (lens) fragments in eye following cataract surgery, bilateral Depression Smoker Home Medications brexpiprazole 2 mg tablet (Rexulti) 2 tab PO DAILY 11/23/21 [History Last Taken Unknown] fluoxetine 40 mg capsule 80 cap PO DAILY 11/23/21 [History Last Taken Unknown] methylphenidate HCl 20 mg tablet (Ritalin) 20 tab PO TID 11/23/21 [History Last Taken Unknown] prazosin 1 mg capsule 2 mg PO QHS 11/23/21 [History Last Taken Unknown] prazosin 1 mg capsule (Minipress) 1 cap PO LUNCH 11/23/21 [History Last Taken Unknown] zolpidem 10 mg tablet (Ambien) 10 tab PO QHS 11/23/21 [History Last Taken Unknown] methylphenidate HCl 60 mg biphasic 30-70 capsule,extended release 60 mg PO DAILY 09/25/22 [History Last Taken Unknown] tizanidine 4 mg tablet 4 mg PO DAILY 09/25/22 [History Last Taken Unknown] Allergy/AdvReac Type Severity Reaction Status Date / Time No Known Allergies Allergy Verified 10/02/22 17:27 Social History Smoking Status: Current every day smoker tobacco type: e-cigarettes ROS ROS ED ROS Narrative Past medical history: Reviewed Medications: Reviewed Social history: Noncontributory Review of systems: All systems negative except as indicated General: He is denying fever Eyes: No visual changes ENT: No upper airway congestion, normal voice Neck: No neck pain Cardiovascular: No chest pain Respiratory: No shortness of breath or cough Gastrointestinal: No abdominal pain, nausea vomiting or diarrhea Genitourinary: No dysuria Psych: He tells me he is anxious. He told paramedics that he was suicidal apparently he also told ED staff the same thing. EXAM Physical Exam Narrative Exam Narrative: Physical exam General: Patient is quite somnolent, a fine persistent use of loud voice who then pays attention and focuses. Head: Normocephalic, Atraumatic Eyes: Conjunctiva not pale ENT: Moist mucous membranes Neck: Supple, Nontender, No lymphadenopathy Cardiovascular: Regular rate, Regular rhythm Respiratory: No distress, CTA bilaterally Abdomen: Soft, Nontender, Nondistended Back: Nontender, Normal Inspection. Negative for: CVA tenderness Extremities: Nontender, No edema Skin: Normal color, No rash Neurological: Somnolent but oriented no focal deficit Const Vital Signs: 10/02/22 16:38 Temperature 97.5 F L Temperature Source Temporal Pulse Rate 102 H Respiratory Rate 16 Blood Pressure 108/65 Blood Pressure Mean 79 Pulse Ox 94 Oxygen Delivery Method Room Air MDM MDM MDM Narrative Medical decision making narrative: This is the patient's third visit to the ED today. Each time he has quite confused, this is likely secondary to Ambien he likely improved since the half- time is around 3 hours. Regardless he mentioned that he is suicidal. He also clearly represents a risk of impairment or injury to self as manifested by evidence that he cannot care for himself, that he makes poor decisions. I will pink slip him and will need admission.I did repeat blood work but patient recently had a CT and there is no new signs of trauma therefore CT is not warranted at this time. Discharge Plan Triage Chief Complaint: Suicidal Other Complaint: Mental Health ED Provider: Damien Stanton Dx/Rx/DC Orders Clinical Impression: Suicidal ideation, Drug abuse, Alcohol abuse, Unable to care for self Prescriptions: No Action fluoxetine 40 mg capsule 80 cap PO DAILY Label Comments: TAKE 2 CAPSULES BY MOUTH ONCE DAILY methylphenidate HCl [Ritalin] 20 mg tablet 20 tab PO TID Label Comments: TAKE 1 TABLET THREE TIMES DAILY prazosin 1 mg capsule 2 mg PO QHS Label Comments: take 1 capsule daily at 2 pm and 2 capsules by mouth at bedtime prazosin [Minipress] 1 mg capsule 1 cap PO LUNCH Label Comments: take 1 capsule daily at 2 pm and 2 capsules by mouth at bedtime zolpidem [Ambien] 10 mg tablet 10 tab PO QHS Label Comments: TAKE 1 TABLET BY MOUTH EVERY EVENING for insomnia. Rexulti 2 mg tablet 2 tab PO DAILY Label Comments: take one tablet by mouth every morning tizanidine 4 mg tablet 4 mg PO DAILY Label Comments: take one tab once daily as needed for muscle pain methylphenidate HCl 60 mg capsule, ER biphasic 30-70 60 mg PO DAILY Label Comments: TAKE 1 CAPSULE BY MOUTH ONCE DAILY in the afternoon Primary Care [facility] - Disposition Disposition: Psychiatric Hospital or Unit
[2022-10-02 18:43] LABS: Absolute Lymphocyte Count 2.09 X10^3/uL (0.83-4.51); Absolute Neutrophil Count 10.3 X10^3/uL (2.0-7.7); Basophil# 0.09 X10^3/uL; Basophil% 0.7 % (0-1); Eosinophil# 0.06 X10^3/uL; Eosinophils% 0.4 % (0-5); Hematocrit 32.9 % (40-54); Hemoglobin 11.1 g/dL (13.0-16.5); Lymphocyte # 2.09 X10^3/ul (0.83-4.51); Lymphocyte % 15.1 % (19-41); Mean Corp Hgb Conc 33.7 g/dL (32-36); Mean Corpuscular Hgb 29.4 pg (27.0-32.0); Mean Platelet Vol. 9.4 fl (6.2-12.0); Monocyte# 1.18 X10^3/uL; Monocyte% 8.5 % (0-10); NRBC Flagged by Analyzer 0 % (0-5); Neutrophil # 10.34 X10^3/uL (2.7-7.7); Neutrophil % 74.9 % (47-70); Platelet Count 284 K/mm3 (150-450); RBC Distribution Width CV 13.5 % (11.6-14.6); RBC Distribution Width SD 42.9 fl (35.1-43.9); Red Blood Count 3.78 M/mm3 (4.6-6.2); White Blood Count 13.8 K/mm3 (4.4-11.0)
[2022-10-02 18:47] LABS: Anion Gap 7 (5-15); BUN 18 mg/dL (7-18); BUN/Creat Ratio 14.2 RATIO (10-20); Calcium,Total 9.2 mg/dL (8.5-10.1); Chloride 105 mmol/L (98-107); Creatinine, Serum 1.27 mg/dL (0.70-1.30); EST Glomerular Filtration Rate 63 mL/min (>60); Est Glom Filt Rate - Afr Amer 76 mL/min (>60); Estimated Creatinine Clearance 66.49 ml/min; Glucose 108 mg/dL (74-106); Sodium Level 138 mmol/L (136-145)
--- NOTE | 2022-10-02 19:10 | CM.ED ---
Social Work Pt unable to be assessed currently due to being drowsy from medication overdose. SW called crisis and faxed patient information. Alcohol levels still pending. Crisis to assess patient when alcohol level under 100 and patient is more alert and oriented. Ines Mishra INSTANTIZER OPERATOR, CABLE TELEVISION INSTALLER
[2022-10-02 21:21] LABS: Amphetamine Urine VISTA NEGATIVE (<1000 ng/mL); Barbiturate Urine VISTA NEGATIVE (< 200 ng/mL); Benzodiazepine Urine VISTA POSITIVE (< 200 ng/mL); Cocaine Urine VISTA NEGATIVE (< 300 ng/mL); Ecstacy Urine VISTA NEGATIVE (< 500 ng/mL); Methadone Urine VISTA NEGATIVE (< 300 ng/mL); PCP Urine VISTA NEGATIVE (< 25 ng/mL); THC Urine VISTA POSITIVE (< 50 ng/mL); Vista UDS pH Range 4
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
--- NOTE | 2022-10-03 01:32 | ED.RN ---
Crisis calls stating patient was accepted by [facility] by Dr Denise. Pt will be going to the adult behavioral unit, number for nurse report [phone]. Requesting pink slip to be faxed to [phone]. Patient cannot not arrive at their facility until after 9am. Will arrange transport.
[2022-10-03 02:00] VITALS: RESP 16
[2022-10-03] MEDS: Ziprasidone IM 20 MG/ML VIAL IM (02:05)
--- NOTE | 2022-10-03 02:05 | ED.RN ---
PT STATED HE WAS GOING TO LEAVE, SECURITY AND DISPATCH NOTIFIED. AMBULATED OUT OF DEPARTMENT THEN BACK INTO DEPARTMENT. PT REQUESTING MEDICATION TO HELP CALM IM DOWN. ORDER FOR HERMILA OBTAINED FROM DR. MAYA AND ADMINISTERED.
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
--- NOTE | 2022-10-03 02:16 | ED.RN ---
Called [facility] for patient to be taken down to [facility] in the morning. Notified that patient can not arrive until after 9:00am. Transport is set to come at 8:00am.
[2022-10-03] MEDS: Ibuprofen 200 MG Tablet 400 MG PO (02:35)
[2022-10-03 03:20] VITALS: RESP 14
[2022-10-03 04:00] VITALS: RESP 16
[2022-10-03 05:00] VITALS: RESP 14
[2022-10-03 06:00] VITALS: BP 107/58; PULSE 62; RESP 14; RESP 16; TEMP 36.2; O2SAT 94
[2022-10-03 07:56] VITALS: RESP 14
--- NOTE | 2022-10-03 08:10 | ED.RN ---
transport in ED
== END 2022-10-03 09:16 ==
PROVIDERS: Emergency Provider Emergency Medicine; Visit Provider Emergency Medicine
DX: R45.851 Suicidal ideations (principal); F10.10 Alcohol abuse, uncomplicated; F41.9 Anxiety disorder, unspecified; F32.A Depression, unspecified; F17.290 Nicotine dependence, other tobacco product, uncomplicated; S01.01XA Laceration without foreign body of scalp, initial encounter; S09.90XA Unspecified injury of head, initial encounter; X58.XXXA Exposure to other specified factors, initial encounter; Z79.899 Other long term (current) drug therapy
CPT/HCPCS: 12002; 70450; 80048; 80053; 80307; 81001; 82077; 84484; 85025; 90715; 96360; 96372; 99285; J7030; A4216; J3486

== ENCOUNTER 2022-10-06 19:40 | Emergency (ER) | payer MEDICAID, SELFPAY ==
[2022-10-06 19:40] VITALS: BP 119/96; PULSE 95; RESP 16; TEMP 36.6; O2SAT 97; BMI 30.4
--- NOTE | 2022-10-06 20:05 | CT_ITS ---
STUDY: CT BRAIN WITHOUT CONTRAST REASON FOR EXAM: Male, 52 years old. mental status change after fall RADIATION DOSAGE (If Supplied By Facility): CTDIvol = ( 44.99 ) mGy, DLP = ( 829.85 ) mGycm TECHNIQUE: Transaxial CT imaging of the brain was performed without administration of intravenous contrast material. Individualized dose optimization techniques were used for this CT. COMPARISON: 10/01/2022 FINDINGS: Skin sutures are seen across the right scalp. Normal calvarium. Normal size ventricles and extra-axial spaces for the patient''s age. Normal white matter tracts of the cerebral hemispheres. Normal basal ganglia and thalami. Normal brainstem. Normal cerebellum. There is no intracranial hemorrhage. There are no findings of an acute ischemic infarction. Normal visualized paranasal sinuses. CT/Brain/Head without Contrast IMPRESSION: Normal unenhanced CT scan of the brain. Electronically Signed: Jeramie Hannon MD at 20:48 EDT ,
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
== END 2022-10-06 21:41 | disposition home or self-care (01) ==
PROVIDERS: Emergency Provider Emergency Medicine; Visit Provider Emergency Medicine
DX: S09.90XA Unspecified injury of head, initial encounter (principal); R41.0 Disorientation, unspecified; F17.290 Nicotine dependence, other tobacco product, uncomplicated; W19.XXXA Unspecified fall, initial encounter
CPT/HCPCS: 70450; 99284; A4216

== ENCOUNTER 2023-04-19 14:54 | Observation (INO) | payer MEDICAID, SELFPAY ==
[2023-04-19 14:55] VITALS: BP 121/63; PULSE 108; RESP 28; TEMP 37.1; O2SAT 96
[2023-04-19 15:00] VITALS: BP 114/54; PULSE 105; RESP 25; O2SAT 92
[2023-04-19 15:20] LABS: Bedside Glucose 152 mg/dL (74-106)
--- NOTE | 2023-04-19 15:40 | CT_ITS ---
STUDY: CT BRAIN WITHOUT CONTRAST REASON FOR EXAM: Male, 53 years old. ms change RADIATION DOSAGE (If Supplied By Facility): CTDIvol = ( 44.99 ) mGy, DLP = ( 832.67 ) mGycm TECHNIQUE: Transaxial CT imaging of the brain was performed without administration of intravenous contrast material. Individualized dose optimization techniques were used for this CT. COMPARISON: October 06, 2022 FINDINGS: Normal soft tissue structures. Normal calvarium. Normal size ventricles and extra-axial spaces for the patient''s age. Normal white matter tracts of the cerebral hemispheres. Normal basal ganglia and thalami. Normal brainstem. Normal cerebellum. There is no intracranial hemorrhage. There are no findings of an acute ischemic infarction. Normal visualized paranasal sinuses. CT/Brain/Head without Contrast IMPRESSION: Normal unenhanced CT scan of the brain. Electronically Signed: Robert Berg MD at 16:26 EST ,
--- NOTE | 2023-04-19 15:43 | EX.ED.DYSGE1 ---
HPI History of Present Illness Chief Complaint: Confusion Detail of Chief Complaint: Mental status change since this morning Informant: patient and family Onset/Context/Timing Onset: Today and Hours Context: Gradual Onset Timing: Continuous Current Severity: Moderate Maximum Severity: Moderate Narrative Narrative: 53-year-old male history of alcohol abuse, depression, anxiety and ADHD. Woman at bedside states that he was normal around 5 6 AM this morning she called him and he was not making any sense so she brought him in to be evaluated. He denies any complaints. He does not drink but states he has not had any alcohol today. Denies any fever, headache or abdominal pain. Denies recent illness or hospitalization. Recently he has gotten [facility]. Prior similar symptoms: Yes Recent Illness/Hospitalization: No PFSH PFSH Medical History Alcohol abuse Anxiety Cataract (lens) fragments in eye following cataract surgery, bilateral Depression Smoker Home Medications brexpiprazole 2 mg tablet (Rexulti) 2 tab PO DAILY 11/23/21 [History Last Taken Unknown] fluoxetine 40 mg capsule 80 cap PO DAILY 11/23/21 [History Last Taken Unknown] methylphenidate HCl 20 mg tablet (Ritalin) 20 tab PO TID 11/23/21 [History Last Taken Unknown] prazosin 1 mg capsule 2 mg PO QHS 11/23/21 [History Last Taken Unknown] prazosin 1 mg capsule (Minipress) 1 cap PO LUNCH 11/23/21 [History Last Taken Unknown] zolpidem 10 mg tablet (Ambien) 10 tab PO QHS 11/23/21 [History Last Taken Unknown] tizanidine 4 mg tablet 4 mg PO DAILY 09/25/22 [History Last Taken Unknown] cholecalciferol (vitamin D3) 50 mcg (2,000 unit) capsule (Vitamin D3) 50 mcg PO DAILY 10/02/22 [History Last Taken Unknown] divalproex 250 mg tablet,delayed release 500 mg PO DAILY 10/02/22 [History Last Taken Unknown] divalproex 250 mg tablet,delayed release 750 mg PO QHS 10/02/22 [History Last Taken Unknown] hydroxyzine pamoate 50 mg capsule 50 mg PO BID 10/02/22 [History Last Taken Unknown] omega 2-gdy-bku-fish oil 1,000 mg (120 mg-180 mg) capsule 1 cap PO BID 10/02/22 [History Last Taken Unknown] quetiapine 100 mg tablet 100 mg PO DAILY 10/02/22 [History Last Taken Unknown] quetiapine 100 mg tablet 300 mg PO DAILY 10/02/22 [History Last Taken Unknown] trazodone 100 mg tablet 100 mg PO QHS PRN Sleep 10/02/22 [History Last Taken Unknown] Allergy/AdvReac Type Severity Reaction Status Date / Time No Known Allergies Allergy Verified 10/06/22 19:42 Surgical History (Updated 04/19/23 @ 18:[address] Helen Villa MD) H/O cataract removal with insertion of prosthetic lens Social History Smoking Status: Current every day smoker tobacco type: e-cigarettes ROS ROS ED ROS Narrative Denies recent illness. Limited review of systems due to patient's mental status. Review of Systems ROS Unobtainable: due to mental status EXAM Physical Exam Narrative Exam Narrative: 53-year-old male vital signs are stable. Pulse ox 96% on room air no hypoxia. He is afebrile. He does not look septic or toxic. He is confused. He is sitting upright in bed. Female sitting at bedside. HEENT exam unremarkable atraumatic. Pupils are reactive light. Normal speech but he is speaking nonsensically. Not slurred. Neck nontender. No lymphadenopathy. Lungs clear to auscultation bilaterally. Heart tachycardic rate of 105 no murmur. Chest wall and ribs nontender. Abdomen soft nontender. Back nontender. Moving all 4 extremities. Nontender no edema. Neurologically he is awake. He answers questions. But he is speaking nonsensically. He is obviously confused. He is moving all 4 extremities. Const Vital Signs: 04/19/23 14:55 04/19/23 15:00 04/19/23 17:18 Temperature 98.8 F Temperature Source Oral Pulse Rate 108 H 105 H 85 Respiratory Rate 28 H 25 H 16 Blood Pressure 121/63 H 114/54 L 114/77 Blood Pressure Mean 82 74 89 Pulse Ox 96 92 97 Oxygen Delivery Method Room Air Room Air Room Air Positive well nourished and well developed; Negative for cachectic, contractures or unkempt General Appearance ED: well developed, NAD and pallor; Negative for unkempt, cachectic, contractures, cyanotic or diaphoretic Nutritional Appearance: Negative for cachectic HEENT Reports moist mucous membranes Negative for trauma or tenderness Eyes PERRL and EOMs intact bilaterally General Eye ED: Negative for pale conjunctiva, scleral icterus or other Neck no lymphadenopathy, supple and no JVD General: Negative for tenderness Lymph Lymphatic: Negative for other Chest Wall inspection of chest normal and palpation of chest normal Chest: Negative for other Resp normal respiratory effort and clear to auscultation bilaterally Effort and Inspection: Negative for retractions Auscultation: Negative for rales, rhonchi or wheezes Cardio regular rhythm, S1 normal heart sound, S2 normal heart sound and no murmurs; Negative for regular rate Rate: tachycardic Rhythm: Negative for abnormal rhythm GI normal to inspection, nondistended, normoactive bowel sounds, non-tender, non-distended and no masses Inspection: Negative for abdominal distention Auscultation: normoactive bowel sounds Palpation: soft; Negative for tender or guarding Back/Spine no CVA tenderness General Back: Negative for CVA tenderness Cervical Spine: Negative for cervical spine tenderness Thoracic Spine / Upper Back: Negative for thoracic spinal tenderness or paraspinal muscle tenderness Lumbar Spine / Lower Back: Negative for lumbar spinal tenderness Extremity normal to inspection General Extremety ED: Negative for edema or tenderness General Extremity: Negative for edema Neuro No oriented x3 and CN's II-XII intact bilaterally Sensorium / Orientation: alert and orientation impaired; Negative for lethargic or stuporous Motor Exam: strength 5/5 throughout Psych mental status grossly normal Appearance: Negative for unkempt Attitude: No agitated Mood & Affect: Negative for depressed, anxious or tearful Skin no rashes or lesions noted, no wounds and skin turgor normal General Skin Exam: pallor; Negative for jaundice Lesions: No lesion noted Rashes: No rashes noted Trauma: Negative for abrasion Wounds: Negative for wounds noted MDM MDM MDM Narrative Medical decision making narrative: 53-year-old male with mental status change since this morning this appears to be more encephalopathic like either metabolic disorder, drugs, alcohol or prescription medications. Undergo acute mental status change workup including CAT scan and labs and alcohol level. He will be given a fluid bolus. Patient be treated with a liter normal saline for his acute kidney injury. Urine tox screen will be sent. And spoke to the hospitalist about admission. History & Record Review Discussion w/independent historian: Patient and Significant other Additional record(s) reviewed:: Prior inpatient record, Prior outpatient record, Prior ED visit and Prior labs Lab Data Attestation: I reviewed the patient's lab results. Lab results narrative: BC white 11.9. H&H 12 and 38. Platelets 312. Lecture lites show gap 9. BUN and creatinine 21.7. Glucose 161. Liver enzymes unremarkable. Alcohol level negative. Urinalysis normal. Labs: Laboratory Results - last 24 hr 04/19/23 04/19/23 04/19/23 15:01 15:02 15:46 WBC 11.9 H RBC 4.47 L Hgb 12.2 L Hct 38.2 L MCV 85.5 MCH 27.3 MCHC 31.9 L RDW Std Deviation 39.9 RDW Coeff of Danish 12.9 Plt Count 312 MPV 9.3 Immature Gran % (Auto) 0.300 Neut % (Auto) 74.1 H Lymph % (Auto) 16.3 L Baldwin % (Auto) 6.4 Eos % (Auto) 2.0 Baso % (Auto) 0.9 Absolute Neuts (auto) 8.8 H Absolute Lymphs (auto) 1.95 Nucleated RBC % 0 Sodium 141 Potassium 3.8 Chloride 109 H Carbon Dioxide 23.0 Anion Gap 9 BUN 22 H Creatinine 1.72 H Est GFR (MDRD) Af Amer 53 L Est GFR (MDRD) Non-Af 44 L BUN/Creatinine Ratio 12.8 Glucose 161 H Calcium 8.9 Total Bilirubin 0.30 AST 46 H ALT 27 Alkaline Phosphatase 73 Total Protein 7.3 Albumin 3.8 Globulin 3.5 Albumin/Globulin Ratio 1.1 Urine Color Urine Clarity Urine pH Ur Specific [place] Urine Protein Urine Glucose (UA) Urine Ketones Urine Occult Blood Urine Nitrite Urine Bilirubin Urine Urobilinogen Ur Leukocyte Esterase Urine RBC Urine WBC Ur Squamous Epith Cells Urine Bacteria Urine Mucus Ethyl Alcohol < 3.0 POC Glucose 152 H 04/19/23 16:49 WBC RBC Hgb Hct MCV MCH MCHC RDW Std Deviation RDW Coeff of Danish Plt Count MPV Immature Gran % (Auto) Neut % (Auto) Lymph % (Auto) Baldwin % (Auto) Eos % (Auto) Baso % (Auto) Absolute Neuts (auto) Absolute Lymphs (auto) Nucleated RBC % Sodium Potassium Chloride Carbon Dioxide Anion Gap BUN Creatinine Est GFR (MDRD) Af Amer Est GFR (MDRD) Non-Af BUN/Creatinine Ratio Glucose Calcium Total Bilirubin AST ALT Alkaline Phosphatase Total Protein Albumin Globulin Albumin/Globulin Ratio Urine Color Yellow Urine Clarity Clear Urine pH 5.0 Ur Specific [place] 1.025 Urine Protein 30 H Urine Glucose (UA) Normal Urine Ketones 5 H Urine Occult Blood Negative Urine Nitrite Negative Urine Bilirubin Negative Urine Urobilinogen 1 H Ur Leukocyte Esterase 25 H Urine RBC 0 SEEN Urine WBC 0-5 SEEN Ur Squamous Epith Cells 0 SEEN Urine Bacteria 0 SEEN Urine Mucus 1+ Ethyl Alcohol POC Glucose Radiography Chest X-Ray - ED: 1 View, Read by ED Physician, Read by Radiologist, Normal, Heart, Lungs, Mediastinum, Bony Structures, No Acute Disease and Chronic Changes Diagnostic Testing: Clinical Impression(s) from Imaging Studies Brain CT 04/19/23 15:40 IMPRESSION: Normal unenhanced CT scan of the brain. Electronically Signed: Robert Berg MD at 16:26 EST Reading Location ID and State: [facility] / [place] Tel , Service support , Chest X-Ray 04/19/23 15:48 IMPRESSION: No acute disease Electronically Signed: Robert Berg MD at 16:16 EST Reading Location ID and State: [id number] / [place] Tel , Service support , Chest x-ray, portable, single view shows no acute abnormality. Normal cardiac silhouette. Normal mediastinum. Chronic changes. Interpreted both by myself and the radiologist. Rhythm Strip Rhythm Strip: Sinus Tach Rate: 107 Ectopy: None EKG Initial EKG: Attestation: I personally reviewed and interpreted this EKG as follows: Interpretation: Sinus Tachycardia Comments: Sinus tachycardia rate of 107 no acute signs of SC or ischemia. Discharge Plan Dx/Rx/DC Orders Clinical Impression: Acute kidney injury, Altered level of consciousness, Acute confusion, History of alcohol abuse Disposition Disposition: Acute Care [facility]
--- NOTE | 2023-04-19 15:48 | RAD_ITS ---
STUDY: X-RAY CHEST REASON FOR EXAM: Male, 53 years old. ALOC TECHNIQUE: Single frontal view of the chest. COMPARISON: None. FINDINGS: The lungs are clear and expanded. There is no demonstrated pleural abnormality. Normal size heart. Normal mediastinum and kirit. Normal visualized pulmonary arteries. Normal visualized aortic arch and descending thoracic aorta. Normal visualized thoracic spine. Old rib fractures on the left. There is no demonstrated abnormality of the visualized soft tissue structures of the upper abdomen. RAD/Chest 1 View (Portable) IMPRESSION: No acute disease Electronically Signed: Robert Berg MD at 16:16 EST ,
[2023-04-19] MEDS: 0.9% Normal Saline (500mL Bag) 500 ML 1000 ML IV (15:50)
[2023-04-19 16:00] LABS: Absolute Lymphocyte Count 1.95 X10^3/uL (0.83-4.51); Absolute Neutrophil Count 8.8 X10^3/uL (2.0-7.7); Basophil# 0.11 X10^3/uL; Basophil% 0.9 % (0-1); Eosinophil# 0.24 X10^3/uL; Hematocrit 38.2 % (40-54); Hemoglobin 12.2 g/dL (13.0-16.5); Lymphocyte # 1.95 X10^3/ul (0.83-4.51); Lymphocyte % 16.3 % (19-41); Mean Corp Hgb Conc 31.9 g/dL (32-36); Mean Corpuscular Hgb 27.3 pg (27.0-32.0); Mean Corpuscular Volume 85.5 fL (80-94); Mean Platelet Vol. 9.3 fl (6.2-12.0); Monocyte# 0.76 X10^3/uL; Monocyte% 6.4 % (0-10); NRBC Flagged by Analyzer 0 % (0-5); Neutrophil # 8.84 X10^3/uL (2.7-7.7); Neutrophil % 74.1 % (47-70); Platelet Count 312 K/mm3 (150-450); RBC Distribution Width CV 12.9 % (11.6-14.6); RBC Distribution Width SD 39.9 fl (35.1-43.9); Red Blood Count 4.47 M/mm3 (4.6-6.2); White Blood Count 11.9 K/mm3 (4.4-11.0)
--- OUTSIDE RECORDS SUMMARY | 2023-04-19 16:14 | XMS RPT_ITS | CCD ---
Author Name Unknown Address [address] [place] [address] Organization [facility] Care Team Providers Care Radiographer Mammographer Name Role Phone Ethel MCLAUGHLIN, Alesha Curtis Primary Care Provider Unavailable Primary Care Provider Deven Gutierrez, Dr. Gustavo Moreira Attending Sheyla Gutierrez, Dr. Gustavo Moreira Referring Unavai lable UNKNOWN, PCP Primary Care Unavailable Brenda, Dr. Gustavo oMreira Admitting Unavai lable Medications Current Medications Medication Drug Class(es) Dates Sig (Normalized) Sig (Original) benoxinate hydrochloride 4 mg/ml / fluorescein sodium 2.5 mg/ml ophthalmic solution (1 source) Diagnostic Dye Start: 08-12-2021 End: 08-12-2021 fluorescein-molly xinate 0.25-0.4 % 1 Drop (FLURESS) ketorolac tromethamine 5 mg/ml ophthalmic solution (3 sources) Nonsteroidal Anti-inflammatory Drug, Cyclooxygenase Inhibitor Start: 08-11-2021 End: 09-15-2021 take 1 drop(s) into the eye(s) four times daily keTORolac (ACULAR) 0.5 % ophthalmic solution Use 1 Drop in the left eye four times daily. 5 mL 2 08/11/2021 09/15/2021 Active Completed/Discontinued Medications Medication Drug Class(es) Dates Sig (Normalized) Sig (Original) brexpiprazole 1 mg oral tablet (5 sources) Atypical Antipsychotic Start: 04-23-2017 brexpiprazole (REXULTI) 1 mg tablet cyclobenzaprine hydrochloride 10 mg oral tablet (2 sources) Muscle Relaxant Start: 09-18-2021 take 1 tablet by mouth every eight hours as needed cyclobenzaprine (FLEXERIL) 10 mg tablet Take 1 tablet by mouth three times daily as needed for muscle spasm. 15 tablet 0 09/18/2021 Active Problems Active Problems Problem Classification Problem Date Documented Date Episodic/Chronic Anxiety disorders (14 sources) Phobia; Translations: [Phobic anxiety disorder, unspecified] Onset: 05-17-2021 05-17-2021 Chronic Attention-deficit, conduct, and disruptive behavior disorders (5 sources) Attention deficit hyperactivity disorder; Translations: [Attention-deficit hyperactivity disorder, unspecified type] Onset: 05-17-2021 05-17-2021 Chronic Attention-deficit, conduct, and disruptive behavior disorders (1 source) Attention-deficit hyperactivity disorder, unspecified type; Translations: [Attention-deficit hyperactivity disorder, unspecified type] Onset: 08-11-2021 Chronic Cataract (7 sources) 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; Translations: [Combined forms of age-related cataract, left eye] Onset: 05-17-2021 05-17-2021 Chronic Miscellaneous mental health disorders (1 source) Sleep terrors [night terrors]; Translations: [Sleep terrors [night terrors]] Onset: 08-11-2021 Chronic Mood disorders (1 source) Mood disorders; Translations: [Depression, unspecified] Onset: 08-11-2021 Other eye disorders (6 sources) Constricted pupil; 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] Onset: 05-17-2021 05-17-2021 Chronic Other eye disorders (7 sources) H/O: R cataract extraction; Translations: [Cataract extraction status, right eye] Onset: 06-28-2021 06-28-2021 Episodic Other eye disorders (4 sources) H/O: L cataract extraction; Translations: [Cataract extraction status, left eye] Onset: 08-12-2021 Episodic Spondylosis; intervertebral disc disorders; other back problems (1 source) Acute low back pain; Translations: [Acute midline low back pain without sciatica] Episodic Past or Other Problems Problem Classification Problem Date Documented Da te Episodic/Chronic Blindness and vision defects (6 sources) Bilateral regular astigmatism; Translations: [Regular astigmatism, bilateral] Onset: 05-17-2021 05-17-2021 Episodic Results Test Name Value Interpretation Reference Range Facil ity Vital Signs Date Time Vital Sign Value Performing Clinician Faci lity 09-18-2021 09:07-0400 Body temperature 98.8 [degF] Janelle Prabhakar PA-C Work Phone: [facility] 09-18-2021 09:07-0400 Body weight 108.86 kg Janelle Athy PA-C Work Phone: [facility] 09-18-2021 09:07-0400 Diastolic blood pressure 82 mm[Hg] Janelle Athy PA-C Work Phone: [facility] 09-18-2021 09:07-0400 Heart rate 85 /min Janelle Athy PA-C Work Phone: [facility] 09-18-2021 09:07-0400 Respiratory rate 20 /min Janelle Athy PA-C Work Phone: [facility] 09-18-2021 09:07-0400 SaO2% (BldA) [Mass fraction] 97 % Janelle Athy PA-C Work Phone: [facility] 09-18-2021 09:07-0400 Systolic blood pressure 130 mm[Hg] Janelle Athy PA-C Work Phone: [facility] 08-02-2021 14:44-0400 Diastolic blood pressure 77 mm[Hg] Gustavo Gutierrez MD Work Phone: [facility] 08-02-2021 14:44-0400 Heart rate 60 /min Gustavo Gutierrez MD Work Phone: [facility] 08-02-2021 14:44-0400 Systolic blood pressure 113 mm[Hg] Gustavo Gutierrez MD Work Phone: [facility] Encounters Encounter Date Encounter Type Care Provider Facility Start: 09-21-2021 Telephone encounter Jos aparicio APRN.CNP Work Phone: [facility] Procedures Date Procedure Procedure Detail Performing Clinician Start: 08-30-2021 Adult depression screening assessment Janelle Athy PA-C Work Phone: Plan of Treatment Date Care Activity Detail Author Start: 08-07-2023 LIPID SCREEN LIPID SCREEN [facility] Start: 08-30-2022 Adult depression screening assessment DEPRESSION SCREENING [facility] Start: 12-22-2021 Influenza vaccination INFLUENZA (Season Ended) [facility] Start: 08-06-2021 DIABETES SCREEN DIABETES SCREEN [facility] Start: 12-22-2020 Influenza vaccination INFLUENZA (#1) [facility] Start: 2018 SHINGRIX VACCINE (1 of 2) SHINGRIX VACCINE (1 of 2) [facility] Start: 2013 COLOGUARD (FIT-DNA) COLOGUARD (FIT-DNA) [facility] Start: 2013 Colonoscopy COLONOSCOPY [facility] Start: 2013 COLORECTAL CANCER SCREENING COLORECTAL CANCER SCREENING [facility] Start: [address] COLONOGRAPHY [facility] Start: 2013 FECAL OCCULT BLOOD FECAL OCCULT BLOOD [facility] Start: 2013 SIGMOIDOSCOPY SIGMOIDOSCOPY [facility] Start: 1987 Urine microalbumin profile DTAP,TDAP,TD (1 - Tdap) [facility] Start: 1986 HEPATITIS C SCREENING HEPATITIS C SCREENING [facility] Start: 1986 HIV SCREENING HIV SCREENING [facility] Start: 1980 Adult depression screening assessment DEPRESSION SCREENING [facility] Start: 1973 COVID-19 VACCINE (#1) COVID-19 VACCINE (#1) [facility] Start: 1973 COVID-19 VACCINE (1) COVID-19 VACCINE (1) [facility] End: 10-18-2022 Radex spine lumbosacral 2/3 views XR LUMBAR GENERAL 3V AP/LAT/L5-S1 Radiology STAT Acute midline low back pain without sciatica 1 Occurrences starting 09/18/2021 until 10/18/2022 [facility] Work Phone: Payers Date Payer Category Payer Medicaid [employer] [id number] 2021-Present [phone] [address] [place] [address] Medicaid [id number] 1970 Unknown [id number] Unknown [id number] Social History Date Type Detail Facility Start: 05-17-2021 Tobacco smoking stat us NHIS Never smoked tobacco [facility] Start: 05-17-2021 Tobacco use and exposure Smoke less tobacco non-user [facility] Start: 07-07-2021 End: 08-01-2021 History SDOH Alcohol Frequency 1 [facility] Start: 07-07-2021 History SDOH Alcohol Std Drinks 98 [facility] Start: 07-07-2021 History SDOH Social Connections Sabianist 3 [facility] Start: 07-07-2021 History SDOH Social Connections Membership 2 [facility] Start: 07-07-2021 History SDOH Stress 5 [facility] Start: 1970 Sex Assigned At Male C [facility] Start: 07-03-2021 End: 09-18-2021 Exposure to SARS-CoV-2 (event) Not sure [facility] Start: 08-02-2021 End: 09-18-2021 Alcohol intake Lifetime non-drinker (finding) [facility] Clinical Notes 05-17-2021 to 09-21-2021 Telephone Encounter - Alfreda Tapia - 09/21/2021 8:27 AM EDTTelephone Encounter - Jos Seo APRN.CNP - 09/21/2021 7:43 AM EDSanjeev Prabhakar PA-C - 09/18/2021 10:31 AM EDTPatient Instructions Note Date & Type Note Facility 09-21-2021 Miscellaneous Notes Patient given results and verbalized understanding of instructions given. Alfreda Tapia Please notify that xray normal. Continue f/u as discussed during visit. documented in this encounter [facility] 09-20-2021 Note HNO ID: [id number] Author: Karlee Rothman RT(R) Service: ? Author Type: Animal Laboratory Technician Type: Progress Notes Filed: 09/20/2021 6:47 PM Note Text: Radiology Service Progress Note PATIENT NAME: Mike Carlos DATE OF SERVICE: September 20, 2021 TIME: 6:33 PM PATIENT IDENTITY VERIFICATION COMPLETED USING TWO (2) IDENTIFIERS: Name and Date of confirmed by patient verbally. FALL SCREENING: Has the patient had 2 falls in the last year or 1 fall with injury or currently using an Ambulatory Assistive Device (Walker, Cane, Wheelchair, Crutches, etc.)? No PATIENT GENDER DATA: Male PATIENT RELEVANT IMPLANT DATA REVIEWED: Yes RADIOLOGY DEPARTMENT: General X-ray: Exam(s) Completed: Spine X-Ray(s): Lumbar AP / LAT / L5-S1 PERIPHERAL IV DATA: Not applicable SIGNED BY: RT Slim(R) September 20, 2021 6:33 PM [facility] 09-18-2021 Note HNO ID: [id number] Author: Janelle Prabhakar PA-C Service: ? Author Type: Physician Blending Tank Tender Helper Type: Progress Notes Filed: 09/18/2021 10:35 AM Note Text: This note was created using In Ovoriter. Subjective Mike Carlos is a 51 year old male. HPI Patient presents with low back pain over the past 2 days. He states he got up to stand from sitting at his computer and felt severe pain in his low back. Denies any pain radiating into his legs. He states it is very painful to stand up straight and to try to walk. He has tried Tylenol and ibuprofen [id number] which does not seem to be helping. He denies any abdominal pain. No dysuria, frequency or urgency. No hematuria. No history of kidney stones. Pain is better when he sits and rest, worse when he tries to stand up straight. He feels like his back is locked. He denies chronic back problems in the past. No loss of bowel or bladder control or saddle anesthesia. No weakness numbness or tingling. Review of Systems Constitutional: Negative. HENT: Negative. Respiratory: Negative. Cardiovascular: Negative. Gastrointestinal: Negative. Genitourinary: Negative. Musculoskeletal: Positive for back pain. All other systems reviewed and are negative. PAST MEDICAL HISTORY Diagnosis Date - Adult ADHD - Anxiety - Depression Current Outpatient Medications Medication Sig Dispense Refill - prednisoLONE acetate (PRED FORTE, ECONOPRED PLUS) 1 % ophthalmic suspension Use 1 Drop in the left eye four times daily. 5 mL 2 - propylene glycoL (SYSTANE COMPLETE) 0.6 % drop Use 1 Drop in both eyes three times daily. 10 mL 2 - prazosin (MINIPRESS) 1 mg cap 3 mg daily at bedtime. - brexpiprazole (REXULTI) 1 mg tablet - FLUoxetine HCl (PROZAC) 40 mg capsule 40 mg. Taking 2 tablets daily - methylphenidate (RITALIN) 20 mg tablet three times daily. - zolpidem (AMBIEN) 10 mg - predniSONE (DELTASONE) 20 mg tablet Take 2 tablets by mouth once daily for 5 days. 10 tablet 0 - cyclobenzaprine (FLEXERIL) 10 mg tablet Take 1 tablet by mouth three times daily as needed for muscle spasm. 15 tablet 0 No current facility-administered medications for this visit. PAST SURGICAL HISTORY Procedure Laterality Date - REMV CATARACT EXTRACAP,INSERT LENS Right 06/09/2021 SN60WF +23.0D - REMV CATARACT EXTRACAP,INSERT LENS Left 08/11/2021 SN60WF +21.5D FAMILY HISTORY Problem Relation Age of Onset - No Ocular Disease Mother - Lung Cancer Mother - No Ocular Disease Father - Hyperthyroidism Father Social History Tobacco Use - Smoking status: Never Smoker - Smokeless tobacco: Never Used Vaping Use - Vaping Use: Never used Substance Use Topics - Alcohol use: Never - Drug use: Never Objective BP 130/82 Pulse 85 Temp 37.1 ?C (98.8 ?F) Resp 20 Wt 108.9 kg (240 lb) SpO2 97% BMI 34.44 kg/m? Physical Exam Vitals reviewed. Constitutional: Appearance: Normal appearance. HENT: Head: Normocephalic and atraumatic. Musculoskeletal: Comments: Patient appears to be in moderate/severe pain here. When attempting to get up from sitting very painful for him. Able to stand up straight for few seconds but then needs to bend back over on the table due to pain. Normal strength and sensation in his lower extremities. Positive straight leg test bilaterally. DTRs intact and symmetrical bilaterally. Normal distal sensation in the legs. No tenderness on palpation of the abdomen. Skin: General: Skin is warm and dry. Neurological: Mental Status: He is alert. Assessment and Plan ASSESSMENT/PLAN: 1. Acute midline low back pain without sciatica - ICD9: 724.2, ICD10: M54.50 X-ray is closed for the next 2 days. He had no fall or acute injury. I will order them for Sunday and will call on results. Prescription for prednisone and Flexeril. I feel this is musculoskeletal pain. I will have him follow-up with PCP. Patient agreeable. - XR LUMBAR GENERAL 3V AP/LAT/L5-S1 Janelle Prabhakar PA-C [facility] 09-18-2021 History of Presen t illness Narrative This note was created using Daticalter. Subjective Mike Carlos is a 51 year old male. HPI Patient presents with low back pain over the past 2 days. He states he got up to stand from sitting at his computer and felt severe pain in his low back. Denies any pain radiating into his legs. He states it is very painful to stand up straight and to try to walk. He has tried Tylenol and ibuprofen [id number] which does not seem to be helping. He denies any abdominal pain. No dysuria, frequency or urgency. No hematuria. No history of kidney stones. Pain is better when he sits and rest, worse when he tries to stand up straight. He feels like his back is locked. He denies chronic back problems in the past. No loss of bowel or bladder control or saddle anesthesia. No weakness numbness or tingling. Review of Systems Constitutional: Negative. HENT: Negative. Respiratory: Negative. Cardiovascular: Negative. Gastrointestinal: Negative. Genitourinary: Negative. Musculoskeletal: Positive for back pain. All other systems reviewed and are negative. PAST MEDICAL HISTORY Diagnosis Date Adult ADHD Anxiety Depression Current Outpatient Medications Medication Sig Dispense Refill prednisoLONE acetate (PRED FORTE, ECONOPRED PLUS) 1 % ophthalmic suspension Use 1 Drop in the left eye four times daily. 5 mL 2 propylene glycoL (SYSTANE COMPLETE) 0.6 % drop Use 1 Drop in both eyes three times daily. 10 mL 2 prazosin (MINIPRESS) 1 mg cap 3 mg daily at bedtime. brexpiprazole (REXULTI) 1 mg tablet FLUoxetine HCl (PROZAC) 40 mg capsule 40 mg. Taking 2 tablets daily methylphenidate (RITALIN) 20 mg tablet three times daily. zolpidem (AMBIEN) 10 mg predniSONE (DELTASONE) 20 mg tablet Take 2 tablets by mouth once daily for 5 days. 10 tablet 0 cyclobenzaprine (FLEXERIL) 10 mg tablet Take 1 tablet by mouth three times daily as needed for muscle spasm. 15 tablet 0 No current facility-administered medications for this visit. PAST SURGICAL HISTORY Procedure Laterality Date REMV CATARACT EXTRACAP,INSERT LENS Right 06/09/2021 SN60WF +23.0D REMV CATARACT EXTRACAP,INSERT LENS Left 08/11/2021 SN60WF +21.5D FAMILY HISTORY Problem Relation Age of Onset No Ocular Disease Mother Lung Cancer Mother No Ocular Disease Father Hyperthyroidism Father Social History Tobacco Use Smoking status: Never Smoker Smokeless tobacco: Never Used Vaping Use Vaping Use: Never used Substance Use Topics Alcohol use: Never Drug use: Never Objective BP 130/82 Pulse 85 Temp 37.1 C (98.8 F) Resp 20 Wt 108.9 kg (240 lb) SpO2 97% BMI 34.44 kg/m Physical Exam Vitals reviewed. Constitutional: Appearance: Normal appearance. HENT: Head: Normocephalic and atraumatic. Musculoskeletal: Comments: Patient appears to be in moderate/severe pain here. When attempting to get up from sitting very painful for him. Able to stand up straight for few seconds but then needs to bend back over on the table due to pain. Normal strength and sensation in his lower extremities. Positive straight leg test bilaterally. DTRs intact and symmetrical bilaterally. Normal distal sensation in the legs. No tenderness on palpation of the abdomen. Skin: General: Skin is warm and dry. Neurological: Mental Status: He is alert. Assessment and Plan ASSESSMENT/PLAN: 1. Acute midline low back pain without sciatica - ICD9: 724.2, ICD10: M54.50 X-ray is closed for the next 2 days. He had no fall or acute injury. I will order them for Sunday and will call on results. Prescription for prednisone and Flexeril. I feel this is musculoskeletal pain. I will have him follow-up with PCP. Patient agreeable. - XR LUMBAR GENERAL 3V AP/LAT/L5-S1 Janelle Prabhakar PA-C documented in this encounter [facility] 08-12-2021 Note HNO ID: [id number] Author: Gustavo Gutierrez MD Service: ? Author Type: Physician Type: Progress Notes Filed: 08/12/2021 10:42 AM Note Text: ASSESSMENT/PLAN: 1. Status post cataract extraction and insertion of intraocular lens of right eye - ICD9: V45.61, V43.1, ICD10: Z98.41, Z96.1 (primary diagnosis) 2. Status post cataract extraction and insertion of intraocular lens of left eye - ICD9: V45.61, V43.1, ICD10: Z98.42, Z96.1 S/p cataract surgery left eye 08/11/2021 S.p cataract surgery right eye 06/09/2021 Current Ophthalmic Meds propylene glycoL (SYSTANE COMPLETE) 0.6 % drop Use 1 Drop in both eyes three times daily. keTORolac (ACULAR) 0.5 % ophthalmic solution Use 1 Drop in the left eye four times daily for 7 days, then three times daily until 09/15/2021 prednisoLONE acetate (PRED FORTE, ECONOPRED PLUS) 1 % ophthalmic suspension Use 1 Drop in the left eye four times daily for 7 days, then three times daily until 09/15/2021 Follow up in one week Gustavo Gutierrez MD I have confirmed and edited as necessary the relevant ophthalmic history, review of systems, surgical history, and ophthalmological examination findings as obtained by the ophthalmic technical staff. I have seen and examined Mike Carlos. I have discussed the examination findings, diagnosis, and treatment options with Mike Carlos and/or his family. I have also reviewed and agree with the assessment and plan as stated above and agree with all its relevant components. I gave the patient the opportunity to ask questions about the findings, diagnosis, and treatment options. [facility] 08-12-2021 Instructions Gustavo Gutierrez MD - 08/12/2021 10:41 AM EDT Use post op medications as directed: Current Ophthalmic Meds propylene glycoL (SYSTANE COMPLETE) 0.6 % drop Use 1 Drop in both eyes three times daily. keTORolac (ACULAR) 0.5 % ophthalmic solution Use 1 Drop in the left eye four times daily for 7 days, then three times daily until 09/15/2021 prednisoLONE acetate (PRED FORTE, ECONOPRED PLUS) 1 % ophthalmic suspension Use 1 Drop in the left eye four times daily for 7 days, then three times daily until 09/15/2021 If you have any questions please contact our office at [phone]. After office hours or on the weekend, please call Dr. Gutierrez on his cell phone at [phone]. documented in this encounter [facility] 08-12-2021 History of Presen t illness Narrative ASSESSMENT/PLAN: 1. Status post cataract extraction and insertion of intraocular lens of right eye - ICD9: V45.61, V43.1, ICD10: Z98.41, Z96.1 (primary diagnosis) 2. Status post cataract extraction and insertion of intraocular lens of left eye - ICD9: V45.61, V43.1, ICD10: Z98.42, Z96.1 S/p cataract surgery left eye 08/11/2021 S.p cataract surgery right eye 06/09/2021 Current Ophthalmic Meds propylene glycoL (SYSTANE COMPLETE) 0.6 % drop Use 1 Drop in both eyes three times daily. keTORolac (ACULAR) 0.5 % ophthalmic solution Use 1 Drop in the left eye four times daily for 7 days, then three times daily until 09/15/2021 prednisoLONE acetate (PRED FORTE, ECONOPRED PLUS) 1 % ophthalmic suspension Use 1 Drop in the left eye four times daily for 7 days, then three times daily until 09/15/2021 Follow up in one week Gustavo Gutierrez MD I have confirmed and edited as necessary the relevant ophthalmic history, review of systems, surgical history, and ophthalmological examination findings as obtained by the ophthalmic technical staff. I have seen and examined Mike Carlos. I have discussed the examination findings, diagnosis, and treatment options with Mike Carlos and/or his family. I have also reviewed and agree with the assessment and plan as stated above and agree with all its relevant components. I gave the patient the opportunity to ask questions about the findings, diagnosis, and treatment options. documented in this encounter [facility] 08-11-2021 Note Post Operative Note: Post-Procedure Diagnosis: 1. Combined Form Age Related Cataract Left Eye Procedure: 1. Cataract Extraction with Intraocular Lens Implant Left Eye Surgeon: Gustavo Gutierrez MD Resident/Fellow/Other Blending Tank Tender Helper: None Estimated Blood Loss (mL): none Specimen: no Findings: 1. Combined Form Age Related Cataract Left Eye Operative Report Dictated: Dictation: not applicable - note contains Operative Report Operative Report: The patient was correctly identified in the preop area and the operative eye was marked with a marking pen. The operative eye was dilated in the preoperative area. The patient was then taken to the operating room where timeout was performed before starting the procedure. Combined anesthesia with intravenous sedation and topical tetracaine eyedrops were given the left eye. The operative eye was prepped and draped in the standard sterile ophthalmic fashion in preparation for ophthalmic surgery. A Andrea wire speculum was then inserted between the eyelids of the left eye and the operating microscope was placed over the left eye. A paracentesis incision was made approximately 30 away from the planned surgical incision site with the help of MVR blade. 1% lidocaine MPF with Phenylephrine 1.5% PF was injected into the anterior chamber through the paracentesis incision. A near limbal clear corneal incision was fashioned in the temporal quadrant just outside the vascular arcade and Viscoat was injected into anterior chamber to firm the eye. A bent needle cystotome was used and Utrata forceps were utilized to create a continuous curvilinear capsulorrhexis. BSS was injected beneath the anterior capsule to hydrodissect the nucleus from adjacent cortex and capsule. The residual cortex were then aspirated with irrigation aspiration handpiece. The posterior capsule was then polished with the help of soft irrigation-aspiration tip. Provisc viscoelastic was then injected into the eye to reform the anterior chamber and to open the capsular bag. The intraocular lens implant was taken from its sterile wrapping, inspected under the surgical microscope and found to be in good condition. The intraocular lens implant 21.5D was injected into the capsule bag. The Provisc was then aspirated from the anterior chamber and from behind the intraocular lens implant. The anterior chamber was inflated with the help of BSS to moderate tension. The edges of the surgical incision were then hydrated with the help of BSS. Vigamox was then injected into the anterior chamber and into the capsule bag through the paracentesis incision. The surgical wound was then inspected and found to be watertight. The wire speculum and drapes were then removed. Pred Forte eyedrops, Acular eyedrops and Betadine 5% sterile ophthalmic solution were instilled in the conjunctival sac. The patient tolerated the procedure well and was taken to recovery room in stable condition. Attestation: Note Completion: Attending AttestationI performed the procedure without a resident Electronic Signatures: Gustavo Gutierrez) (Signed 11-Aug-2021 08:12) Authored: Post Operative Note, Note Completion Last Updated: 11-Aug-2021 08:12 by Gustavo Gutierrez) [facility]11[facility] Note History & Physical R eviewed: I have reviewed the History and Physical dated: 02-Aug-2021 History and Physical reviewed and relevant findings noted. Patient examined to review pertinent physical findings.: No significant changes Home Medications Reviewed: no changes noted Allergies Reviewed: no changes noted ERAS (Enhanced Recovery After Surgery): ERAS Patient: no Consent: COVID-19 Consent: COVID-19 Risk ConsentSurgeon has reviewed rodriguez risks related to the risk of antonieta COVID-19 and if they contract COVID-19 what the risks are. Electronic Signatures: Gustavo Gutierrez) (Signed 11-Aug-2021 06:57) Authored: History & Physical Reviewed, ERAS, Consent, Note Completion Last Updated: 11-Aug-2021 06:57 by Gustavo Gutierrez) [facility] 08-08-2021 Influenza virus A and B RNA and SARS-CoV-2 (COVID-19) N gene panel CIARA+probe (Resp) COVID 19 RESULT: SARS-CoV-2 (Agent of COVID-19) Not Detected by RT-PCR or equivalent method. gilbert [id number] (LIONEL)_EUA This test was developed and its performance characteristics determined by [facility] [place]. This test has been authorized by FDA under an Emergency Use Authorization (EUA). This test has been validated in accordance with the FDA's Guidance Document Policy for Diagnostics Testing in Laboratories Certified to Perform High Complexity Testing under CLIA prior to Emergency use Authorization for Coronavirus Disease 2019 during the Public Health Emergency issued on June 21, 2019. Test performed by [facility], [facility] [place], [address] [id number]. INFLUENZA A PCR: Negative for Influenza A by RT-PCR INFLUENZA B PCR: Negative for Influenza B by RT-PCR [facility] documented as of this encounter (statuses as of 07/18/2021) [facility]22 History of Past illness Narrative* Problem Noted Date Resolved Date Combined forms of age-related cataract of right eye 05/17/2021 06/11/2021 Adult ADHD 07/07/2021 documented as of this encounter (statuses as of 08/02/2021) [facility] History of Past illness Narrative* Problem Noted Date Resolved Date Combined forms of age-related cataract of right eye 05/17/2021 06/11/2021 Combined forms of age-related cataract of left e ye 05/17/2021 08/12/2021 Adult ADHD 07/07/2021 documented as of this encounter (statuses as of 08/12/2021) [facility] History of Past illness Narrative* Problem Noted Date Resolved Date Combined forms of age-related cataract of right eye 05/17/2021 06/11/2021 Combined forms of age-related cataract of left e ye 05/17/2021 08/12/2021 Adult ADHD 07/07/2021 documented as of this encounter (statuses as of 09/18/2021) [facility] History of Past illness Narrative* Problem Noted Date Resolved Date Combined forms of age-related cataract of right eye 05/17/2021 06/11/2021 Combined forms of age-related cataract of left e ye 05/17/2021 08/12/2021 Adult ADHD 07/07/2021 documented as of this encounter (statuses as of 09/21/2021) [facility]2022 NoteHNO ID: [id number] Author: Gustavo Gutierrez MD Service: ? Author Type: Physician Type: Progress Notes Filed: 05/17/2021 10:38 AM Note Text: ASSESSMENT/PLAN: 1. Combined forms of age-related cataract of right eye - ICD9: 366.19, ICD10: H25.811 (primary diagnosis) Blood pressure 113/77, pulse 60. Cataract Presurgical Documentation Cataract: Right eye Patient reported symptoms: Associated symptoms Positive for: Blurred Vision, decreased vision, difficulty with driving, difficulty with reading, difficulty with watching television, halos, glare, starbursts Negative for: Eye Redness, foreign body sensation, flashes, floaters, tearing, dryness Current Visual Acuity: Right Eye Distance SC CF at 3' Left Eye Distance SC 20/60 Best Corrected Vision Right Eye 20/200 Best Corrected Vision Left Eye 20/50 Visual Function: Mike Carlos states that the decline in vision from the cataract impedes the ability to read, watch television as well as other activities of daily living. Mike Carlos has confirmed that he is no longer able to function adequately on a day-to-day basis because of his current visual condition. Further, it is my medical opinion that the cataract is the primary cause, or at least a significantly contributory cause of his visual dysfunction. With uncomplicated cataract surgery and lens implantation, it is my expectation that his visual function and quality of life will improve, significantly. The risks, benefits, alternatives, personnel and complications of cataract surgery with lens implantation were discussed with Mike Carlos in detail. he appeared to understand and asked that I proceed with plans for surgery. Patient wishes to have traditional cataract surgery with basic Intraocular lens right eye 06/09/2021 Patient wishes to have cataract surgery with the option stated above. Patient understands that an intraocular lens implant does not necessarily replace the need for glasses. Patient understands that it is impossible for the surgeon to inform him/her of every possible complication that may occur. The surgeon has answered all of the patient's questions. Patient understands that if he/she has a mature or dense cataract, pseudoexfoliation cataract, or history of use of Flomax, he/she may require the use of Maluyugin Ring and/or Vision Blue during surgery. Patient understands the risks, benefits, and alternatives to surgery. Begin: Systane Complete Artificial Tears - Use 1 Drop into both eyes three times a day. Current Ophthalmic Meds fluorometholone (FML LIQUID FILM) 0.1 % ophthalmic suspension Use 1 Drop in both eyes three times daily. Return for repeat Ascan and consents 2. 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 Patient understands the risks, benefits, and alternatives to surgery. 3. Combined forms of age-related cataract of left eye - ICD9: 366.19, ICD10: H25.812 Plan surgery left eye once right eye is completed 4. Regular astigmatism, bilateral - ICD9: 367.21, ICD10: H52.223 Patient understands the need for glasses for all near and intermediate vision including reading and computer work. He/she declines monovision. He/she was offered a Toric Intraocular lens to correct astigmatism, but he/she declines the Toric Intraocular lens. Patient understands that he/she will need glasses to correct residual astigmatism at all distances after cataract surgery. 5. Attention deficit hyperactivity disorder (ADHD), unspecified ADHD type - ICD9: 314.01, ICD10: F90.9 6. Phobia, unspecified type - ICD9: 300.20, ICD10: F40.9 Continue care with primary care physician Gustavo Gutierrez MD I have confirmed and edited as necessary the relevant ophthalmic history, review of systems, surgical history, and ophthalmological examination findings as obtained by the ophthalmic technical staff. I have seen and examined Mike Carlos. I have discussed the examination findings, diagnosis, and treatment options with Mike Carlos and/or his family. I have also reviewed and agree with the assessment and plan as stated above and agree with all its relevant components. I gave the patient the opportunity to ask questions about the findings, diagnosis, and treatment options.[facility] Diagnosis Combined forms of age-related cataract of left eye- Primary Other and combined forms of senile cataract Status post cataract extraction and insertion of intraocular lens of right eye Regular astigmatism, bilateral Pupillary miosis Miosis (persistent), not due to miotics Anxiety Anxiety state, unspecified Combined forms of age-related cataract of left eye Other and combined forms of senile cataract documented in this encounter [facility] Diagnosis Status post cataract extraction and insertion of intraocular lens of right eye- Primary Status post cataract extraction and insertion of intraocular lens of left eye documented in this encounter [facility] Diagnosis Acute midline low back pain without sciatica- Primary documented in this encounter [facility]ative)* Diagnostic Procedure Only (Urgent) - Pending Review Specialty Diagnoses / Procedures Referred By Abdiel frost Referred To Contact XR IMAGING Diagnoses Acute midline low back pain without sciatica Procedures XR LUMBAR GENERAL 3V AP/LAT/L5-S1 RADEX SPINE LUMBOSACRAL 2/3 VIEWS Janelle Prabhakar PA-C [address] [place] [address] Xr Imaging Referral ID Status Reason Start Date Expiration Date Visits Requested Visits Authorized [id number] Pending Review Auto-Generat ed Referral 09/18/2021 10/18/2022 1 1 [facility] Summary Purpose Family History No Family History Records FoundNo Family History Records FoundNo Family History Records Found Advance Directives No Advanced Directives Records FoundNo Advanced Directives Records FoundNo Advanced Directives Records Found Additional Source Comments (unrecognized sect ion and content) No Status Records FoundNo Status Records FoundNo Status Records Found INFORMATION SOURCE (unrecogn ized section and content) DATE CREATED AUTHOR AUTHOR'S ORGANIZ ATION 10/30/2021 [facility] DATE CREATED AUTHOR AUTHOR'S ORGANIZ ATION 07/29/2022 [facility] Source Comments (unrecognize d section and content) In the event this informatio n is protected by the Federal Confidentiality of Alcohol and Drug Abuse Patient Records regulations: The Federal rules restrict any use of the information to criminally investigate or prosecute any alcohol or drug abuse patient.[facility] the event this information is protected by the Federal Confidentiality of Alcohol and Drug Abuse Patient Records regulations: The Federal rules restrict any use of the information to criminally investigate or prosecute any alcohol or drug abuse patient.[facility] the event this information is protected by the Federal Confidentiality of Alcohol and Drug Abuse Patient Records regulations: The Federal rules restrict any use of the information to criminally investigate or prosecute any alcohol or drug abuse patient.[facility] the event this information is protected by the Federal Confidentiality of Alcohol and Drug Abuse Patient Records regulations: The Federal rules restrict any use of the information to criminally investigate or prosecute any alcohol or drug abuse patient.[facility] the event this information is protected by the Federal Confidentiality of Alcohol and Drug Abuse Patient Records regulations: The Federal rules restrict any use of the information to criminally investigate or prosecute any alcohol or drug abuse patient.[facility] Reason for Visit (unrecogniz ed section and content) Reason Comments Blurred Vision Left Eye Patient is here to sign consents for traditional cataract surgery left eye scheduled on 08/11/21 Difficulty Reading Left Eye Glare Left eye Reason Comments Post-op Cataract OD 06/09/2021 Post-op Cataract OS 08/11/2021 Reason Comments Low Back Pain x2 days, no known in jury Reason Comments Results Care Teams (unrecognized sec tion and content) Radiographer Mammographer Relationship Specialty Start Date End Date Alesha Davenport MD [address], [place] [id number] PCP - General Internal Medicine 07/13/21 Radiographer Mammographer Relationship Specialty Start Date End Date Alesha Davenport MD [address] [place] [address] PCP - General Internal Medicine 07/13/21 FOR RECORDS PERTAINING TO PATIENTS WHO ARE OR HAVE BEEN ENROLLED IN A CHEMICAL DEPENDENCY/SUBSTANCEABUSE PROGRAM, SOME INFORMATION MAY BE OMITTED. This clinical summary was aggregated from multiple sources. Caution should be exercised in using it in the provision of clinical care. This summary normalizes information from multiple sources, and as a consequence, information in this document may materially change the coding, format and clinical context of patient data. In addition, data may be omitted in some cases. CLINICAL DECISIONS SHOULD BE BASED ON THE PRIMARY CLINICAL RECORDS. [facility] [employer] [facility]. provides no warranty or guarantee of the accuracy or completeness of information in this document.
[2023-04-19 16:34] LABS: Alcohol, Blood (Medical)-Serum < 3.0 mg/dL
[2023-04-19 16:45] LABS: ALB/GLOB Ratio 1.1 RATIO (0.9-2.4); AST(SGOT) 46 U/L (15-37); Alanine Aminotransfer ALT/SGPT 27 U/L (16-61); Albumin, Serum 3.8 g/dL (3.2-5.0); Alkaline Phosphatase 73 U/L (45-117); Anion Gap 9 (5-15); BUN 22 mg/dL (7-18); BUN/Creat Ratio 12.8 RATIO (10-20); Calcium,Total 8.9 mg/dL (8.5-10.1); Chloride 109 mmol/L (98-107); Creatinine, Serum 1.72 mg/dL (0.70-1.30); EST Glomerular Filtration Rate 44 mL/min (>60); Est Glom Filt Rate - Afr Amer 53 mL/min (>60); Globulin 3.5 g/dL (2.2-4.2); Glucose 161 mg/dL (74-106); Potassium 3.8 mmol/L (3.5-5.1); Protein, Total 7.3 g/dL (6.4-8.2); Sodium Level 141 mmol/L (136-145)
[2023-04-19 16:54] LABS: Bacteria 0 SEEN /hpf (None Seen); Red Blood Cells-Urine 0 SEEN /hpf (0-5); Squamous Epithelial Cells - UA 0 SEEN /hpf (0-5)
[2023-04-19 16:59] LABS: Color, Urine Yellow (Yellow); Glucose, Dipstick Normal (Normal); Ketone-Dipstick 5 mg/dl (Negative); Leukocyte Esterase-Dipstick 25 /ul (Negative); Nitrite-Dipstick Negative (Negative); Occult Blood-Urine Negative /ul (Negative); Protein-Dipstick 30 mg/dl (Negative); Specific Gravity, Urine 1.025 (1.002-1.030); Urine Bilirubin Dipstick Negative (Negative); Urine Clarity Clear (Clear); Urine Urobilinogen 1 mg/dl (Normal)
[2023-04-19 17:05] LABS: Mucous, Urine 1+ /hpf (<or=2+); White Blood Cells 0-5 SEEN /hpf (0-5)
[2023-04-19 17:18] VITALS: BP 114/77; PULSE 85; RESP 16; O2SAT 97
--- NOTE | 2023-04-19 18:15 | PCM.HP.STD ---
HPI - General General Date of Admission: 04/19/23 Date of Service: 04/19/23 Chief Complaint: Confusion HPI Narrative The patient is a 53 y/o M w/ PMHx: EtOH abuse, Anxiety and Depression/Schizophrenia/ADHD, Autism, Tobacco use who presents to the [facility] ED on 04/19/23 with history of confusion worsening over the last several hours starting early in the morning at approximately 5 to 6 AM at which time he was contacted and was noted to not be making any sense over the phone therefore he was brought into the hospital to be evaluated reportedly recently being released from group home. He denies any alcohol today but despite chart history says that he does not have alcohol abuse issues. Chart history has been significant for alcohol intoxication presentations. He denies any recent fever, chills, headache, abdominal pain or other URI type illnesses. Patient states in the ED that he was recently incarcerated for at least 6 months secondary to DUI and assault. His friend who was in the ED did report to staff that he had drank in last heavily 2 days prior but he denies this. He does report that when he drinks he binges but he notes that he has not drank in because he was recently incarcerated. Workup in the ED included T98.8, heart rate 108, BP 121/63, respiratory rate 28, initially 96% on room air with most recent repeat respiratory rate 25 and noted to be 92% on room air, CBC with WBC 11.9, hemoglobin 12.2, MCV 85.5, platelet 312 with left shift, CMP with chloride 109, BUN/creatinine 22/1.72, AST/LT 46/27 otherwise panic profile not marked appearing, urinalysis with elevated specific remedy 1.025, protein 30, ketone 5, negative nitrite, leukocyte esterase 25 with no obvious evidence of UTI, ethyl alcohol level less than 3, CT of the brain with no acute intracranial findings, chest x-ray with no acute cardiopulmonary disease. In the ED patient administered 1L NS. [facility] Medical History Alcohol abuse Anxiety and depression Autism Cannabis abuse Cataract (lens) fragments in eye following cataract surgery, bilateral Nicotine vapor product user Schizophrenia Tobacco use Home Medications brexpiprazole 2 mg tablet (Rexulti) 2 tab PO DAILY 11/23/21 [History Last Taken Unknown] fluoxetine 40 mg capsule 80 cap PO DAILY 11/23/21 [History Last Taken Unknown] methylphenidate HCl 20 mg tablet (Ritalin) 20 tab PO TID 11/23/21 [History Last Taken Unknown] prazosin 1 mg capsule 2 mg PO QHS 11/23/21 [History Last Taken Unknown] prazosin 1 mg capsule (Minipress) 1 cap PO LUNCH 11/23/21 [History Last Taken Unknown] zolpidem 10 mg tablet (Ambien) 10 tab PO QHS 11/23/21 [History Last Taken Unknown] tizanidine 4 mg tablet 4 mg PO DAILY 09/25/22 [History Last Taken Unknown] cholecalciferol (vitamin D3) 50 mcg (2,000 unit) capsule (Vitamin D3) 50 mcg PO DAILY 10/02/22 [History Last Taken Unknown] divalproex 250 mg tablet,delayed release 500 mg PO DAILY 10/02/22 [History Last Taken Unknown] divalproex 250 mg tablet,delayed release 750 mg PO QHS 10/02/22 [History Last Taken Unknown] hydroxyzine pamoate 50 mg capsule 50 mg PO BID 10/02/22 [History Last Taken Unknown] omega 3-vph-ttx-fish oil 1,000 mg (120 mg-180 mg) capsule 1 cap PO BID 10/02/22 [History Last Taken Unknown] quetiapine 100 mg tablet 100 mg PO DAILY 10/02/22 [History Last Taken Unknown] quetiapine 100 mg tablet 300 mg PO DAILY 10/02/22 [History Last Taken Unknown] trazodone 100 mg tablet 100 mg PO QHS PRN Sleep 10/02/22 [History Last Taken Unknown] Allergy/AdvReac Type Severity Reaction Status Date / Time No Known Allergies Allergy Verified 10/06/22 19:42 Family History (Updated 04/19/23 @ 19:[address] Helen Villa MD) Mother COPD (chronic obstructive pulmonary disease) Hypertension Diabetes Father Hypertension Alcohol abuse Surgical History (Updated 04/19/23 @ 19:[address] Helen Villa MD) H/O cataract removal with insertion of prosthetic lens History of appendectomy History of shoulder surgery History of tonsillectomy and adenoidectomy Social History (Updated 04/19/23 @ 19:[address] Helen Villa MD) household members: friend(s) Smoking Status: Current every day smoker tobacco type: e-cigarettes Electronic Cigarette Use: with nicotine how long ago did patient quit smoking: Cigarette->vaping several yrs, uses heavy. alcohol intake: current alcohol intake frequency: 3 or more drinks per day details: Reports binging history. substance use type: marijuana ROS ROS Narrative Admission Review of Systems: CONSTITUTIONAL: No weight loss, fever, chills, + weakness or fatigue. HEENT: Eyes: No visual loss, blurred vision, double vision or yellow sclerae. Ears, Nose, Throat: No hearing loss, sneezing, congestion, runny nose or sore throat. SKIN: No rash or itching, lesions, wounds. CARDIOVASCULAR: No chest pain, chest pressure or chest discomfort, palpitations, edema, orthopnea, syncopal events. RESPIRATORY: No shortness of breath, cough or sputum, wheezing, hemoptysis. GASTROINTESTINAL: No anorexia, nausea, vomiting or diarrhea, abdominal pain, melena, BRBPR. GENITOURINARY: No dysuria, frequency, urgency or retention. NEUROLOGICAL: + Reports feeling fatigued and mildly confused. No headache, dizziness, syncope, paralysis, ataxia, numbness or tingling in the extremities, focal weakness, change in bowel or bladder control, seizure. MUSCULOSKELETAL: + muscle, back pain, joint pain or stiffness. HEMATOLOGIC: + anemia, easy bleeding/bruising. LYMPHATICS: No enlarged nodes. No history of splenectomy. PSYCHIATRIC: + Anxiety and depression/schizophrenia. ENDOCRINOLOGIC: No reports of sweating, cold or heat intolerance. No polyuria or polydipsia. ALLERGIES: No history of asthma, hives, eczema or rhinitis. Vital Signs Vital Signs Vital Signs: 04/19/23 14:55 04/19/23 15:00 04/19/23 17:18 Temperature 98.8 F Temperature Source Oral Pulse Rate 108 H 105 H 85 Respiratory Rate 28 H 25 H 16 Blood Pressure 121/63 H 114/54 L 114/77 Blood Pressure Mean 82 74 89 Pulse Ox 96 92 97 Oxygen Delivery Method Room Air Room Air Room Air Physical Exam Narrative Physical Examination: General: Awake, alert, oriented to self, place, month, year, able to describe president but could not recall his name at the moment, remains cooperative, seated upright in ED bed, fatigued and answering slowly but per discussion with ED staff does appear to be improved since initial arrival. Skin: Normal color, normal turgor, no icterus, no cyanosis, occasional staged ecchymoses, abrasion. HEENT: AT/NC, EOMI, PERRLA, dry MM, no carotid bruits or JVD noted. Lungs: CTA bilaterally, moderate effort, mild decrease BL bases, no rales, ronchi or wheezing. Heart: Regular rate and rhythm; no gallop, rub audible. Abdomen: Soft, obese, NTTP, ND, hyperactive BS, mild HM appreciated. Extremities: No cyanosis, clubbing, or edema. Neurological: Patient awake, alert, oriented as noted, cognitive function seems to improved since to ED arrival and patient is currently oriented, patient is slow to answer and seems fatigued but also has underlying autism thus it is difficult to tell if this is his baseline or different as his friend has already left; pupils equally reactive to light and accommodation, cranial nerves grossly normal, moving all 4 extremities, no focal deficits, strength mildly to moderately global decreased. Psychiatric: Affect appears flat, fatigued, slow responses, no acute evidence of depressive or anxiety feelings but does have underlying history as well as schizophrenia unclear type complicated by also autism. Results Lab / Micro Data 04/19/23 15:02 04/19/23 15:02 Labs: Laboratory Results - last 24 hr 04/19/23 15:01: POC Glucose 152 H 04/19/23 15:02: WBC 11.9 H, RBC 4.47 L, Hgb 12.2 L, Hct 38.2 L, MCV 85.5, MCH 27.3, MCHC 31.9 L, RDW Std Deviation 39.9, RDW Coeff of Danish 12.9, Plt Count 312, MPV 9.3, Immature Gran % (Auto) 0.300, Neut % (Auto) 74.1 H, Lymph % (Auto) 16.3 L, [place] % (Auto) 6.4, Eos % (Auto) 2.0, Baso % (Auto) 0.9, Absolute Neuts (auto) 8.8 H, Absolute Lymphs (auto) 1.95, Nucleated RBC % 0, Sodium 141, Potassium 3.8, Chloride 109 H, Carbon Dioxide 23.0, Anion Gap 9, BUN 22 H, Creatinine 1.72 H, Est GFR (MDRD) Af Amer 53 L, Est GFR (MDRD) Non-Af 44 L, BUN/Creatinine Ratio 12.8, Glucose 161 H, Calcium 8.9, Total Bilirubin 0.30, AST 46 H, ALT 27, Alkaline Phosphatase 73, Total Protein 7.3, Albumin 3.8, Globulin 3.5, Albumin/Globulin Ratio 1.1 04/19/23 15:46: Ethyl Alcohol < 3.0 04/19/23 16:49: Urine Color Yellow, Urine Clarity Clear, Urine pH 5.0, Ur Specific [place] 1.025, Urine Protein 30 H, Urine Glucose (UA) Normal, Urine Ketones 5 H, Urine Occult Blood Negative, Urine Nitrite Negative, Urine Bilirubin Negative, Urine Urobilinogen 1 H, Ur Leukocyte Esterase 25 H, Urine RBC 0 SEEN, Urine WBC 0-5 SEEN, Ur Squamous Epith Cells 0 SEEN, Urine Bacteria 0 SEEN, Urine Mucus 1+ Rhythm Strip Rhythm Strip: Sinus Tach Rate: 107 Ectopy: None Imagaing Radiology Impression Brain CT 04/19/23 15:40 IMPRESSION: Normal unenhanced CT scan of the brain. Electronically Signed: Robert Berg MD at 16:26 EST Reading Location ID and State: [address] [place] [address] Tel , Service support , Chest X-Ray 04/19/23 15:48 IMPRESSION: No acute disease Electronically Signed: Robert Berg MD at 16:16 EST Reading Location ID and State: [address] [place] [address] Tel , Service support , Assessment & Plan Assessment/Plan (1) Altered level of consciousness: PLAN: Plan The patient is a 53 y/o M w/ PMHx: EtOH abuse, Anxiety and Depression/Schizophrenia/ADHD, Autism, Tobacco use who presents to the [facility] ED on 04/19/23 with history of confusion worsening over the last several hours starting early in the morning at approximately 5 to 6 AM at which time he was contacted and was noted to not be making any sense over the phone therefore he was brought into the hospital to be evaluated reportedly recently being released from group home. He denies any alcohol today but despite chart history says that he does not have alcohol abuse issues. #1. Acute Encephalopathy, unclear exact etiology, possibly secondary to Acute EtOH Withdrawal versus Polypharmacy overdose: Will admit to [facility], routine labs obtained in the ED upon presentation and notable for YASMIN. UDS requested. Given unclear if withdrawal or polypharmacy will hold on protocol with Phenobarbital until assure he is not just polypharmacy. Will consult Case management for EtOH abuse and possible overdose/accidental. Mag, phos pending. Maintain on CIWA protocol concurrently. Procalcitonin requested. Maintain on MVI/Thiamine/Folic acid. #2. Acute kidney injury: Secondary to acute presentation, poor intake. Admission BUN/Cr 22/1.72, prior baseline creatinine noted to be primarily 0.7-1.0. Will hydrate, hold nephrotoxic medications and repeat chemistry in AM. If no improvement would plan FeNa and renal ultrasound assessment. #3. Hyperglycemia: Admission glucose 161, possibly due to stress response, will obtain hemoglobin A1c be cautious. #4. Chronic normocytic anemia: Admission hemoglobin 12.2, MCV 85.5, baseline appears 11-12, stable, likely a component of underlying alcohol abuse, continue to trend. #5. Anxiety and depression/ADHD/Schizophrenia unclear type, Autism: Patient with significant psychiatric medications, will clarify and assure these are correct and renally dose as needed given acute kidney injury if able to obtain correct regimen with hold on sedative regimen also as needed given his presentation and possible polypharmacy. Case management/social work consulted as likely his underlying psychiatric disease history contributes greatly to his alcohol abuse. #6. Tobacco Abuse: Encouraged cessation, inpatient consultation per RT, NR if desired. #7. DVT prophylaxis: Heparin. #8. CODE STATUS: Full code. Charges/Coding Visit Charges Inpatient E&M: 96427 Init Hosp L3
[2023-04-19] MEDS: 0.9% Normal Saline (1000mL) 1,000 ML 999 ML IV ×2 (18:33→20:16)
--- OUTSIDE RECORDS SUMMARY | 2023-04-19 18:34 | XMS RPT_ITS | CCD ---
Author Name Unknown Address [address] [place] [address] Organization [facility] Care Team Providers Care Fifth Hand Name Role Phone Ethel MCLAUGHLIN, Alesha Curtis Primary Care Provider Unavailable Primary Care Provider Deven Gutierrez, Dr. Gustavo Moreira Attending Sheyla Gutierrez, Dr. Gustavo Moreira Referring Unavai lable UNKNOWN, PCP Primary Care Unavailable Brenda, Dr. Gustavo Moreira Admitting Unavai lable Medications Current Medications Medication [...] 98.8 [degF] Janelle Prabhakar PA-C Work Phone: [facility] 09-18-2021 09:07-0400 Body weight 108.86 kg Janelle Athy PA-C Work Phone: [facility] 09-18-2021 09:07-0400 Diastolic blood pressure 82 mm[Hg] Janelle Athy PA-C Work Phone: [facility] 09-18-2021 09:07-0400 Heart rate 85 /min Janelle Athy PA-C Work Phone: [facility] 09-18-2021 09:07-0400 Respiratory rate 20 /min Janelle Athy PA-C Work Phone: [facility] 09-18-2021 09:07-0400 SaO2% (BldA) [Mass fraction] 97 % Janelle Athy PA-C Work Phone: [facility] 09-18-2021 09:07-0400 Systolic blood pressure 130 mm[Hg] Janelle Athy PA-C Work Phone: [facility] 08-02-2021 14:44-0400 Diastolic blood pressure 77 mm[Hg] Gustavo Gutierrez MD Work Phone: [facility] 08-02-2021 14:44-0400 Heart rate 60 /min Gustavo Gutierrez MD Work Phone: [facility] 08-02-2021 14:44-0400 Systolic blood pressure 113 mm[Hg] Gustavo Gutierrez MD Work Phone: [facility] Encounters Encounter Date Encounter Type Care Provider Facility Start: 09-21-2021 Telephone encounter Jos aparicio APRN.CNP Work Phone: [facility] Procedures Date Procedure Procedure Detail Performing Clinician Start: 08-30-2021 Adult depression screening assessment Janelle Athy PA-C Work Phone: Plan of Treatment Date Care Activity Detail Author Start: 08-07-2023 LIPID SCREEN LIPID SCREEN [facility] Start: 08-30-2022 Adult depression screening assessment DEPRESSION SCREENING [facility] Start: 12-22-2021 Influenza vaccination INFLUENZA (Season Ended) [facility] Start: 08-06-2021 DIABETES SCREEN DIABETES SCREEN [facility] Start: 12-22-2020 Influenza vaccination INFLUENZA (#1) [facility] Start: 2018 SHINGRIX VACCINE (1 of 2) SHINGRIX VACCINE (1 of 2) [facility] Start: 2013 COLOGUARD (FIT-DNA) COLOGUARD (FIT-DNA) [facility] Start: 2013 Colonoscopy COLONOSCOPY [facility] Start: 2013 COLORECTAL CANCER SCREENING COLORECTAL CANCER SCREENING [facility] Start: [address] COLONOGRAPHY [facility] Start: 2013 FECAL OCCULT BLOOD FECAL OCCULT BLOOD [facility] Start: 2013 SIGMOIDOSCOPY SIGMOIDOSCOPY [facility] Start: 1987 Urine microalbumin profile DTAP,TDAP,TD (1 - Tdap) [facility] Start: 1986 HEPATITIS C SCREENING HEPATITIS C SCREENING [facility] Start: 1986 HIV SCREENING HIV SCREENING [facility] Start: 1980 Adult depression screening assessment DEPRESSION SCREENING [facility] Start: 1973 COVID-19 VACCINE (#1) COVID-19 VACCINE (#1) [facility] Start: 1973 COVID-19 VACCINE (1) COVID-19 VACCINE (1) [facility] End: 10-18-2022 Radex spine lumbosacral 2/3 views XR LUMBAR GENERAL 3V AP/LAT/L5-S1 Radiology STAT Acute midline low back pain without sciatica 1 Occurrences starting 09/18/2021 until 10/18/2022 [facility] Work Phone: Payers Date Payer Category Payer Medicaid [employer] [id number] 2021-Present [phone] [address] [place] [address] Medicaid [id number] 1970 Unknown [id number] Unknown [id number] Social History Date Type Detail Facility Start: 05-17-2021 Tobacco smoking stat us NHIS Never smoked tobacco [facility] Start: 05-17-2021 Tobacco use and exposure Smoke less tobacco non-user [facility] Start: 07-07-2021 End: 08-01-2021 History SDOH Alcohol Frequency 1 [facility] Start: 07-07-2021 History SDOH Alcohol Std Drinks 98 [facility] Start: 07-07-2021 History SDOH Social Connections Restoration 3 [facility] Start: 07-07-2021 History SDOH Social Connections Membership 2 [facility] Start: 07-07-2021 History SDOH Stress 5 [facility] Start: 1970 Sex Assigned At Male C [facility] Start: 07-03-2021 End: 09-18-2021 Exposure to SARS-CoV-2 (event) Not sure [facility] Start: 08-02-2021 End: 09-18-2021 Alcohol intake Lifetime non-drinker (finding) [facility] Clinical Notes 05-17-2021 to 09-21-2021 Telephone Encounter [...] discussed during visit. documented in this encounter [facility] 09-20-2021 Note HNO ID: [id number] Author: Karlee Rothman RT(R) Service: ? Author Type: Research And Development Director Type: Progress Notes Filed: 09/20/2021 6:47 PM [...] RT Slim(R) September 20, 2021 6:33 PM [facility] 09-18-2021 Note HNO ID: [id number] Author: Janelle Prabhakar PA-C Service: ? Author Type: Physician Escalator Installer Type: Progress Notes Filed: 09/18/2021 10:35 AM Note Text: This note was created using Digital Message Displayriter. Subjective Mike Carlos is a 51 year [...] walk. He has tried Tylenol and ibuprofen [id number] which does not seem to be helping. [...] LUMBAR GENERAL 3V AP/LAT/L5-S1 Janelle Prabhakar PA-C [facility] 09-18-2021 History of Presen t illness Narrative This note was created using Greenextter. Subjective Mike Carlos is a 51 year [...] walk. He has tried Tylenol and ibuprofen [id number] which does not seem to be helping. [...] Janelle Prabhakar PA-C documented in this encounter [facility] 08-12-2021 Note HNO ID: [id number] Author: Gustavo Gutierrez MD Service: ? Author [...] about the findings, diagnosis, and treatment options. [facility] 08-12-2021 Instructions Gustavo Gutierrez MD - 08/12/2021 [...] any questions please contact our office at [phone]. After office hours or on the weekend, please call Dr. Gutierrez on his cell phone at [phone]. documented in this encounter [facility] 08-12-2021 History of Presen t illness Narrative [...] and treatment options. documented in this encounter [facility] 08-11-2021 Note Post Operative Note: Post-Procedure Diagnosis: 1. Combined Form Age Related Cataract Left Eye Procedure: 1. Cataract Extraction with Intraocular Lens Implant Left Eye Surgeon: Gustavo Gutierrez MD Resident/Fellow/Other Escalator Installer: None Estimated Blood Loss (mL): none Specimen: [...] Last Updated: 11-Aug-2021 08:12 by Gustavo Gutierrez) [facility] 08-11-2021 Note History & Physical R eviewed: [...] Last Updated: 11-Aug-2021 06:57 by Gustavo Gutierrez) [facility] 08-08-2021 Influenza virus A and B RNA and SARS-CoV-2 (COVID-19) N gene panel CIARA+probe (Resp) COVID 19 RESULT: SARS-CoV-2 (Agent of COVID-19) Not Detected by RT-PCR or equivalent method. gilbert [id number]_[employer] (LIONEL)_EUA This test was developed and its performance characteristics determined by [facility]'s [facility] [place]. This test has been authorized by FDA under an Emergency Use Authorization (EUA). This test has been validated in accordance with the FDA's Guidance Document Policy for Diagnostics Testing in Laboratories Certified to Perform High Complexity Testing under CLIA prior to Emergency use Authorization for Coronavirus Disease 2019 during the Public Health Emergency issued on June 21, 2019. Test performed by [facility], [facility] [place], [address] [id number]. INFLUENZA A PCR: Negative for Influenza A by RT-PCR INFLUENZA B PCR: Negative for Influenza B by RT-PCR [facility] documented as of this encounter (statuses as of 07/18/2021) [facility]22 History of Past illness Narrative* Problem Noted Date Resolved Date Combined forms of age-related cataract of right eye 05/17/2021 06/11/2021 Adult ADHD 07/07/2021 documented as of this encounter (statuses as of 08/02/2021) [facility] History of Past illness Narrative* Problem Noted Date Resolved Date Combined forms of age-related cataract of right eye 05/17/2021 06/11/2021 Combined forms of age-related cataract of left e ye 05/17/2021 08/12/2021 Adult ADHD 07/07/2021 documented as of this encounter (statuses as of 08/12/2021) [facility] History of Past illness Narrative* Problem Noted Date Resolved Date Combined forms of age-related cataract of right eye 05/17/2021 06/11/2021 Combined forms of age-related cataract of left e ye 05/17/2021 08/12/2021 Adult ADHD 07/07/2021 documented as of this encounter (statuses as of 09/18/2021) [facility] History of Past illness Narrative* Problem Noted Date Resolved Date Combined forms of age-related cataract of right eye 05/17/2021 06/11/2021 Combined forms of age-related cataract of left e ye 05/17/2021 08/12/2021 Adult ADHD 07/07/2021 documented as of this encounter (statuses as of 09/21/2021) [facility]22 NoteHNO ID: [id number] Author: Gustavo Gutierrez MD Service: ? Author [...] questions about the findings, diagnosis, and treatment options.[facility] Diagnosis Combined forms of age-related [...] of senile cataract [facility] Diagnosis Status post cataract extraction and insertion of intraocular lens of right eye- Primary Status post cataract extraction and insertion of intraocular lens of left eye [facility] Diagnosis Acute midline low back pain without sciatica- Primary [facility] Diagnostic Procedure Only (Urgent) - Pending Review Specialty Diagnoses / Procedures Referred By Abdiel frost Referred To Contact XR IMAGING Diagnoses Acute midline low back pain without sciatica Procedures XR LUMBAR GENERAL 3V AP/LAT/L5-S1 RADEX SPINE LUMBOSACRAL 2/3 VIEWS Janelle Prabhakar PA-C [address] [place] [address] Xr Imaging Referral ID Status Reason Start Date Expiration Date Visits Requested Visits Authorized [id number] Pending Review Auto-Generat ed Referral 09/18/2021 10/18/2022 1 1 [facility] Summary Purpose Family History No Family History [...] DATE CREATED AUTHOR AUTHOR'S ORGANIZ ATION 10/30/2021 [facility] DATE CREATED AUTHOR AUTHOR'S ORGANIZ ATION 07/29/2022 [facility] Source Comments (unrecognize d section and content) In the event this informatio n is protected by the Federal Confidentiality of Alcohol and Drug Abuse Patient Records regulations: The Federal rules restrict any use of the information to criminally investigate or prosecute any alcohol or drug abuse patient.[facility] the event this information is protected by the Federal Confidentiality of Alcohol and Drug Abuse Patient Records regulations: The Federal rules restrict any use of the information to criminally investigate or prosecute any alcohol or drug abuse patient.[facility] the event this information is protected by the Federal Confidentiality of Alcohol and Drug Abuse Patient Records regulations: The Federal rules restrict any use of the information to criminally investigate or prosecute any alcohol or drug abuse patient.[facility] the event this information is protected by the Federal Confidentiality of Alcohol and Drug Abuse Patient Records regulations: The Federal rules restrict any use of the information to criminally investigate or prosecute any alcohol or drug abuse patient.[facility] the event this information is protected by the Federal Confidentiality of Alcohol and Drug Abuse Patient Records regulations: The Federal rules restrict any use of the information to criminally investigate or prosecute any alcohol or drug abuse patient.[facility] Reason for Visit (unrecogniz ed section and [...] Care Teams (unrecognized sec tion and content) Fifth Hand Relationship Specialty Start Date End Date Alesha Davenport MD [address], [place] [id number] PCP - General Internal Medicine 07/13/21 Fifth Hand Relationship Specialty Start Date End Date Alesha Davenport MD [address] [place] [address] PCP - General Internal Medicine [...] BE BASED ON THE PRIMARY CLINICAL RECORDS. [facility]. provides no warranty or guarantee of the accuracy or completeness of information in this document.
[2023-04-19 18:49] LABS: Amphetamine Urine VISTA NEGATIVE (<1000 ng/mL); Barbiturate Urine VISTA NEGATIVE (< 200 ng/mL); Benzodiazepine Urine VISTA NEGATIVE (< 200 ng/mL); Cocaine Urine VISTA NEGATIVE (< 300 ng/mL); Ecstacy Urine VISTA POSITIVE (< 500 ng/mL); Methadone Urine VISTA NEGATIVE (< 300 ng/mL); PCP Urine VISTA NEGATIVE (< 25 ng/mL); THC Urine VISTA POSITIVE (< 50 ng/mL); Vista UDS pH Range 4
[2023-04-19 19:02] LABS: Magnesium 2.2 mg/dL (1.6-2.6); Phosphorus 3.9 mg/dL (2.5-4.9)
[2023-04-19 19:10] VITALS: BMI 35.9
[2023-04-19 19:17] VITALS: BP 126/74; PULSE 82; RESP 14; TEMP 36.3; O2SAT 96
[2023-04-19 19:26] VITALS: O2SAT 98
[2023-04-19 19:56] LABS: Procalcitonin < 0.01 ng/mL (0.00-0.09)
[2023-04-19 20:02] VITALS: BMI 36.0
[2023-04-19] MEDS: LORazepam 2 MG/ML Syringe IV (20:16)
[2023-04-19 21:11] VITALS: BP 115/75; PULSE 79; RESP 16; TEMP 36.4; O2SAT 97
[2023-04-19] MEDS: 0.9% Normal Saline (1000mL) 1,000 ML 125 ML IV (21:16)
[2023-04-20 01:49] VITALS: BMI 36.0
[2023-04-20 03:00] VITALS: BP 107/71; PULSE 75; RESP 16; TEMP 36.9; O2SAT 95
[2023-04-20] MEDS: 0.9% Normal Saline (1000mL) 1,000 ML 125 ML IV (05:21)
[2023-04-20 06:31] LABS: Absolute Lymphocyte Count 2.08 X10^3/uL (0.83-4.51); Absolute Neutrophil Count 4.7 X10^3/uL (2.0-7.7); Basophil# 0.09 X10^3/uL; Basophil% 1.1 % (0-1); Eosinophil# 0.47 X10^3/uL; Eosinophils% 5.8 % (0-5); Hematocrit 33.2 % (40-54); Hemoglobin 10.8 g/dL (13.0-16.5); Lymphocyte # 2.08 X10^3/ul (0.83-4.51); Lymphocyte % 25.5 % (19-41); Mean Corp Hgb Conc 32.5 g/dL (32-36); Mean Corpuscular Hgb 28.3 pg (27.0-32.0); Mean Corpuscular Volume 86.9 fL (80-94); Monocyte# 0.83 X10^3/uL; Monocyte% 10.2 % (0-10); NRBC Flagged by Analyzer 0 % (0-5); Neutrophil # 4.69 X10^3/uL (2.7-7.7); Neutrophil % 57.3 % (47-70); Platelet Count 235 K/mm3 (150-450); Red Blood Count 3.82 M/mm3 (4.6-6.2); White Blood Count 8.2 K/mm3 (4.4-11.0)
[2023-04-20 06:58] LABS: AST(SGOT) 40 U/L (15-37); Alanine Aminotransfer ALT/SGPT 22 U/L (16-61); Albumin, Serum 2.7 g/dL (3.2-5.0); Alkaline Phosphatase 55 U/L (45-117); Anion Gap 2 (5-15); BUN 16 mg/dL (7-18); BUN/Creat Ratio 19.3 RATIO (10-20); Calcium,Total 8.1 mg/dL (8.5-10.1); Chloride 114 mmol/L (98-107); Creatinine, Serum 0.83 mg/dL (0.70-1.30); EST Glomerular Filtration Rate 102 mL/min (>60); Est Glom Filt Rate - Afr Amer 124 mL/min (>60); Estimated Creatinine Clearance 103.83 ml/min; Globulin 2.8 g/dL (2.2-4.2); Glucose 94 mg/dL (74-106); Potassium 3.9 mmol/L (3.5-5.1); Protein, Total 5.5 g/dL (6.4-8.2); Sodium Level 142 mmol/L (136-145)
[2023-04-20 07:11] VITALS: O2SAT 95
--- NOTE | 2023-04-20 07:46 | PN.HOSP_ITS ---
Reason for Visit Reason for Visit: Confusion Subjective Subjective Mr. Hatch is a 53-year-old white male with a past medical history of alcohol abuse, anxiety and depression, schizophrenia, and autism who presented to the emergency department on 04/19/2023 with a history of worsening confusion. Evidently, he started becoming confused approximately 5 to 6 AM and was noted not to be making any sense so he was brought to the hospital to be evaluated. He was recently released from snf. He denies any other symptoms. Patient reported the emergency department he had been recently incarcerated for at least 6 months due to a DUI and assault. His friend who was in the emergency department did report to the ED staff that the patient had drank heavily 2 days prior but patient denied this. Vital signs on presentation were unremarkable. CBC was unremarkable. His BUN was 22 with a elevated creatinine 1.72. Liver function enzymes were slightly elevated but less than 100. UA was consistent with dehydration but no evidence of UTI. His ethyl alcohol level was less than 3. CT of the brain showed no acute findings. His toxicology screen was positive for opiates, cannabis and MDMA however he is on Ritalin at baseline. In the emergency room he was treated only with IV fluids and then admitted to the medical floor. Etiology was unclear but polypharmacy was thought to possibly contribute. His procalcitonin was unremarkable at less than 0.01. At the time of admission the patient was oriented x 3. With 1 L of IV fluids his serum creatinine has returned to baseline and is currently 0.83. Objective Data Objective Data Vital Signs: Vital Signs Temp Pulse Resp BP Pulse Ox O2 Del Method 98.4 F 75 16 107/71 95 Room Air 04/20/23 03:00 04/20/23 03:00 04/20/23 03:00 04/20/23 03:00 04/20/23 03:00 04/20/23 03:00 Oxygen Delivery Method Room Air Weight: 114 kg Body Mass Index (BMI) 36.0 Intake & Output: Intake and Output for Last 24 Hours 04/18/23 04/19/23 04/20/23 23:59 23:59 23:59 Intake Total 2500 / 2620 1370 / 1370 Balance 2500 / 2620 1370 / 1370 Lab / Micro Data 04/20/23 06:00 04/20/23 06:00 Labs: Laboratory Results - last 24 hr 04/19/23 15:01: POC Glucose 152 H 04/19/23 15:02: WBC 11.9 H, RBC 4.47 L, Hgb 12.2 L, Hct 38.2 L, MCV 85.5, MCH 27.3, MCHC 31.9 L, RDW Std Deviation 39.9, RDW Coeff of Danish 12.9, Plt Count 312, MPV 9.3, Immature Gran % (Auto) 0.300, Neut % (Auto) 74.1 H, Lymph % (Auto) 16.3 L, [place] % (Auto) 6.4, Eos % (Auto) 2.0, Baso % (Auto) 0.9, Absolute Neuts (auto) 8.8 H, Absolute Lymphs (auto) 1.95, Nucleated RBC % 0, Sodium 141, Potassium 3.8, Chloride 109 H, Carbon Dioxide 23.0, Anion Gap 9, BUN 22 H, Creatinine 1.72 H, Est GFR (MDRD) Af Amer 53 L, Est GFR (MDRD) Non-Af 44 L, BUN/Creatinine Ratio 12.8, Glucose 161 H, Calcium 8.9, Phosphorus 3.9, Magnesium 2.2, Total Bilirubin 0.30, AST 46 H, ALT 27, Alkaline Phosphatase 73, Total Protein 7.3, Albumin 3.8, Globulin 3.5, Albumin/Globulin Ratio 1.1 04/19/23 15:46: Ethyl Alcohol < 3.0 04/19/23 16:49: Urine Color Yellow, Urine Clarity Clear, Urine pH 5.0, Ur Specific [place] 1.025, Urine Protein 30 H, Urine Glucose (UA) Normal, Urine Ketones 5 H, Urine Occult Blood Negative, Urine Nitrite Negative, Urine Bilirubin Negative, Urine Urobilinogen 1 H, Ur Leukocyte Esterase 25 H, Urine RBC 0 SEEN, Urine WBC 0-5 SEEN, Ur Squamous Epith Cells 0 SEEN, Urine Bacteria 0 SEEN, Urine Mucus 1+, Urine Opiates Screen POSITIVE H, Urine Methadone Screen NEGATIVE, Ur Barbiturates Screen NEGATIVE, Ur Phencyclidine Scrn NEGATIVE, Ur Amphetamines Screen NEGATIVE, MDMA (Ecstasy) Screen POSITIVE H, U Benzodiazepines Scrn NEGATIVE, Urine Cocaine Screen NEGATIVE, U Cannabinoids Screen POSITIVE H, Ur Drug Screen Comment 04/19/23 18:35: Procalcitonin < 0.01 04/20/23 06:00: WBC 8.2, RBC 3.82 L, Hgb 10.8 L, Hct 33.2 L, MCV 86.9, MCH 28.3, MCHC 32.5, RDW Std Deviation 41.0, RDW Coeff of Danish 13.0, Plt Count 235, MPV 9.0, Immature Gran % (Auto) 0.100, Neut % (Auto) 57.3, Lymph % (Auto) 25.5, [place] % (Auto) 10.2 H, Eos % (Auto) 5.8 H, Baso % (Auto) 1.1 H, Absolute Neuts (auto) 4.7, Absolute Lymphs (auto) 2.08, Nucleated RBC % 0, Sodium 142, Potassium 3.9, Chloride 114 H, Carbon Dioxide 26.0, Anion Gap 2 L, BUN 16, Creatinine 0.83, Estim Creat Clear Calc 103.83, Est GFR (MDRD) Af Amer 124, Est GFR (MDRD) Non-Af 102, BUN/Creatinine Ratio 19.3, Glucose 94, Calcium 8.1 L, Total Bilirubin 0.40, AST 40 H, ALT 22, Alkaline Phosphatase 55, Total Protein 5.5 L, Albumin 2.7 L, Globulin 2.8, Albumin/Globulin Ratio 1.0 Radiography Diagnostic Testing: Radiology Impression Brain CT 04/19/23 15:40 IMPRESSION: Normal unenhanced CT scan of the brain. Electronically Signed: Robert Berg MD at 16:26 EST Reading Location ID and State: [address] [place] [address] Tel , Service support , Chest X-Ray 04/19/23 15:48 IMPRESSION: No acute disease Electronically Signed: Robert Berg MD at 16:16 EST , Rhythm Strip Rhythm Strip: Sinus Tach Rate: 107 Ectopy: None
[2023-04-20] MEDS: Multivitamins,Ther W-Minerals Tablet 1 TABLET PO (08:47)
[2023-04-20] MEDS: Folic Acid 1 MG Tablet PO (08:47)
[2023-04-20] MEDS: Heparin Injection (Vial) 5,000 UNIT/ML VIAL 5000 UNIT SC (08:47)
[2023-04-20] MEDS: Thiamine Hydrochloride 100 MG Tablet PO (08:47)
[2023-04-20 09:15] VITALS: BP 132/83; PULSE 80; RESP 16; TEMP 36.3; O2SAT 97
--- NOTE | 2023-04-20 10:35 | CASEMGMT ---
CHRISTIANO PHILLIPS Discharge Planning Assessment: Face to Face with patient for initial transition planning/care coordination assessment.?CHRISTIANO PHILLIPS introduced self and role at [facility], pt alert and oriented x4, voices understanding and is agreeable to participating in assessment.? Care providers, pharmacy,?and demographics verified. ? Admitting dx: encephalopathy LACE strata: 1 PCP: Rosangela Jimenez Specialists: Talha (counseling) Preferred Pharmacy: [facility] Insurance: [employer] Prescription Benefit:?yes LNOK: S.O. Jennifer Living Arrangements: Pt lives with his S.O. in a single story apartment. Pt states he is independent with ADLs and IADLs. Transportation: pt does not drive. States his S.O. provides transportation or he uses his e-bike. DME/HHC/SNF: denies any previous services or equipment. ETOH/Smoking: pt denies any use prior to admission Plan: return home with the support of his S.O. Per Dr. Tripathi, pt has appointment to follow-up with [facility] for ETOH tx and has all needed medications. Jaiden Saavedra RN ACM
--- NOTE | 2023-04-20 10:36 | CASEMGMT ---
Social Work [facility] accepted pt and starting precert. SW let pt, and daughter in room know. SW explained there is a chance pt will be here until Sunday as we need precert in order for pt to go to TCU, and insurance is not open again after today until Sunday. They all state understanding. SW will continue to follow. ROSSANA Roberts
--- OUTSIDE RECORDS SUMMARY | 2023-04-20 10:59 | XMS RPT_ITS | CCD ---
Author Name Unknown Address [address] [place] [address] Organization [facility] Care Team Providers Care Supervisor Pairing And Inspecting Name Role Phone Ethel MCLAUGHLIN, Alesha Curtis [...] 98.8 [degF] Janelle Prabhakar PA-C Work Phone: [facility] 09-18-2021 09:07-0400 Body weight 108.86 kg Janelle Athy PA-C Work Phone: [facility] 09-18-2021 09:07-0400 Diastolic blood pressure 82 mm[Hg] Janelle Athy PA-C Work Phone: [facility] 09-18-2021 09:07-0400 Heart rate 85 /min Janelle Athy PA-C Work Phone: [facility] 09-18-2021 09:07-0400 Respiratory rate 20 /min Janelle Athy PA-C Work Phone: [facility] 09-18-2021 09:07-0400 SaO2% (BldA) [Mass fraction] 97 % Janelle Athy PA-C Work Phone: [facility] 09-18-2021 09:07-0400 Systolic blood pressure 130 mm[Hg] Janelle Athy PA-C Work Phone: [facility] 08-02-2021 14:44-0400 Diastolic blood pressure 77 mm[Hg] Gustavo Gutierrez MD Work Phone: [facility] 08-02-2021 14:44-0400 Heart rate 60 /min Gustavo Gutierrez MD Work Phone: [facility] 08-02-2021 14:44-0400 Systolic blood pressure 113 mm[Hg] Gustavo Gutierrez MD Work Phone: [facility] Encounters Encounter Date Encounter Type Care Provider Facility Start: 09-21-2021 Telephone encounter Jos aparicio APRN.CNP Work Phone: [facility] Procedures Date Procedure Procedure Detail Performing Clinician Start: 08-30-2021 Adult depression screening assessment Janelle Athy PA-C Work Phone: Plan of Treatment Date Care Activity Detail Author Start: 08-07-2023 LIPID SCREEN LIPID SCREEN [facility] Start: 08-30-2022 Adult depression screening assessment DEPRESSION SCREENING [facility] Start: 12-22-2021 Influenza vaccination INFLUENZA (Season Ended) [facility] Start: 08-06-2021 DIABETES SCREEN DIABETES SCREEN [facility] Start: 12-22-2020 Influenza vaccination INFLUENZA (#1) [facility] Start: 2018 SHINGRIX VACCINE (1 of 2) SHINGRIX VACCINE (1 of 2) [facility] Start: 2013 COLOGUARD (FIT-DNA) COLOGUARD (FIT-DNA) [facility] Start: 2013 Colonoscopy COLONOSCOPY [facility] Start: 2013 COLORECTAL CANCER SCREENING COLORECTAL CANCER SCREENING [facility] Start: [address] COLONOGRAPHY [facility] Start: 2013 FECAL OCCULT BLOOD FECAL OCCULT BLOOD [facility] Start: 2013 SIGMOIDOSCOPY SIGMOIDOSCOPY [facility] Start: 1987 Urine microalbumin profile DTAP,TDAP,TD (1 - Tdap) [facility] Start: 1986 HEPATITIS C SCREENING HEPATITIS C SCREENING [facility] Start: 1986 HIV SCREENING HIV SCREENING [facility] Start: 1980 Adult depression screening assessment DEPRESSION SCREENING [facility] Start: 1973 COVID-19 VACCINE (#1) COVID-19 VACCINE (#1) [facility] Start: 1973 COVID-19 VACCINE (1) COVID-19 VACCINE (1) [facility] End: 10-18-2022 Radex spine lumbosacral 2/3 views XR LUMBAR GENERAL 3V AP/LAT/L5-S1 Radiology STAT Acute midline low back pain without sciatica 1 Occurrences starting 09/18/2021 until 10/18/2022 [facility] Work Phone: Payers Date Payer Category Payer Medicaid [employer] [id number] 2021-Present [phone] [address] [place] [address] Medicaid [id number] 1970 Unknown [id number] Unknown [id number] Social History Date Type Detail Facility Start: 05-17-2021 Tobacco smoking stat us NHIS Never smoked tobacco [facility] Start: 05-17-2021 Tobacco use and exposure Smoke less tobacco non-user [facility] Start: 07-07-2021 End: 08-01-2021 History SDOH Alcohol Frequency 1 [facility] Start: 07-07-2021 History SDOH Alcohol Std Drinks 98 [facility] Start: 07-07-2021 History SDOH Social Connections Voodoo 3 [facility] Start: 07-07-2021 History SDOH Social Connections Membership 2 [facility] Start: 07-07-2021 History SDOH Stress 5 [facility] Start: 1970 Sex Assigned At Male C [facility] Start: 07-03-2021 End: 09-18-2021 Exposure to SARS-CoV-2 (event) Not sure [facility] Start: 08-02-2021 End: 09-18-2021 Alcohol intake Lifetime non-drinker (finding) [facility] Clinical Notes 05-17-2021 to 09-21-2021 Telephone Encounter [...] discussed during visit. documented in this encounter [facility] 09-20-2021 Note HNO ID: [id number] Author: Karlee Rothman RT(R) Service: ? Author Type: Roof Technician Type: Progress Notes Filed: 09/20/2021 6:47 [...] RT Slim(R) September 20, 2021 6:33 PM [facility] 09-18-2021 Note HNO ID: [id number] Author: Janelle Prabhakar PA-C Service: ? Author Type: Physician Wall Worker Type: Progress Notes Filed: 09/18/2021 10:35 AM Note Text: This note was created using HubChillar[employer]. Subjective Mike Carlos is a 51 year [...] walk. He has tried Tylenol and ibuprofen [id number] which does not seem to be helping. [...] LUMBAR GENERAL 3V AP/LAT/L5-S1 Janelle Prabhakar PA-C [facility] 09-18-2021 History of Presen t illness Narrative This note was created using DailyTicket[employer]. Subjective Mike Carlos is a 51 year [...] walk. He has tried Tylenol and ibuprofen [id number] which does not seem to be helping. [...] Janelle Prabhakar PA-C documented in this encounter [facility] 08-12-2021 Note HNO ID: [id number] Author: Gustavo Gutierrez MD Service: ? Author [...] about the findings, diagnosis, and treatment options. [facility] 08-12-2021 Instructions Gustavo Gutierrez MD - [...] any questions please contact our office at [phone]. After office hours or on the weekend, please call Dr. Gutierrez on his cell phone at [phone]. documented in this encounter [facility] 08-12-2021 History of Presen t illness Narrative [...] and treatment options. documented in this encounter [facility] 08-11-2021 Note Post Operative Note: Post-Procedure Diagnosis: 1. Combined Form Age Related Cataract Left Eye Procedure: 1. Cataract Extraction with Intraocular Lens Implant Left Eye Surgeon: Gustavo Gutierrez MD Resident/Fellow/Other Wall Worker: None Estimated Blood Loss (mL): none Specimen: [...] Detected by RT-PCR or equivalent method. gilbert [id number]_[employer] (LIONEL)_EUA This test was developed and its performance characteristics determined by [facility]'s [facility] [place]. This test has been authorized by FDA under an Emergency Use Authorization (EUA). This test has been validated in accordance with the FDA's Guidance Document Policy for Diagnostics Testing in Laboratories Certified to Perform High Complexity Testing under CLIA prior to Emergency use Authorization for Coronavirus Disease 2019 during the Public Health Emergency issued on June 21, 2019. Test performed by [facility], [facility] [place], [address] [id number]. INFLUENZA A PCR: Negative for Influenza A by RT-PCR INFLUENZA B PCR: Negative for Influenza B by RT-PCR [facility] documented as of this encounter (statuses as of 07/18/2021) [facility] History of Past illness Narrative* Problem Noted Date Resolved Date Combined forms of age-related cataract of right eye 05/17/2021 06/11/2021 Adult ADHD 07/07/2021 documented as of this encounter (statuses as of 08/02/2021) [facility] History of Past illness Narrative* Problem Noted Date Resolved Date Combined forms of age-related cataract of right eye 05/17/2021 06/11/2021 Combined forms of age-related cataract of left e ye 05/17/2021 08/12/2021 Adult ADHD 07/07/2021 documented as of this encounter (statuses as of 08/12/2021) [facility] History of Past illness Narrative* Problem Noted Date Resolved Date Combined forms of age-related cataract of right eye 05/17/2021 06/11/2021 Combined forms of age-related cataract of left e ye 05/17/2021 08/12/2021 Adult ADHD 07/07/2021 documented as of this encounter (statuses as of 09/18/2021) [facility] History of Past illness Narrative* Problem Noted Date Resolved Date Combined forms of age-related cataract of right eye 05/17/2021 06/11/2021 Combined forms of age-related cataract of left e ye 05/17/2021 08/12/2021 Adult ADHD 07/07/2021 documented as of this encounter (statuses as of 09/21/2021) [facility] NoteHNO ID: [id number] Author: Gustavo Gutierrez MD Service: ? Author [...] questions about the findings, diagnosis, and treatment options.[facility] Diagnosis Combined forms of age-related cataract [...] of senile cataract [facility] Diagnosis Status post cataract extraction and insertion of intraocular lens of right eye- Primary Status post cataract extraction and insertion of intraocular lens of left eye [facility] Diagnosis Acute midline low back pain without sciatica- Primary [facility] Diagnostic Procedure Only (Urgent) - Pending Review Specialty Diagnoses / Procedures Referred By Abdiel frost Referred To Contact XR IMAGING Diagnoses Acute midline low back pain without sciatica Procedures XR LUMBAR GENERAL 3V AP/LAT/L5-S1 RADEX SPINE LUMBOSACRAL 2/3 VIEWS Janelle Prabhakar PA-C [address] [place] [address] Xr Imaging Referral ID Status Reason Start Date Expiration Date Visits Requested Visits Authorized [id number] Pending Review Auto-Generat ed Referral 09/18/2021 10/18/2022 1 1 [facility] Summary Purpose Family History No Family History [...] DATE CREATED AUTHOR AUTHOR'S ORGANIZ ATION 10/30/2021 [facility] DATE CREATED AUTHOR AUTHOR'S ORGANIZ ATION 07/29/2022 [facility] Source Comments (unrecognize d section and content) In the event this informatio n is protected by the Federal Confidentiality of Alcohol and Drug Abuse Patient Records regulations: The Federal rules restrict any use of the information to criminally investigate or prosecute any alcohol or drug abuse patient.[facility] the event this information is protected by the Federal Confidentiality of Alcohol and Drug Abuse Patient Records regulations: The Federal rules restrict any use of the information to criminally investigate or prosecute any alcohol or drug abuse patient.[facility] the event this information is protected by the Federal Confidentiality of Alcohol and Drug Abuse Patient Records regulations: The Federal rules restrict any use of the information to criminally investigate or prosecute any alcohol or drug abuse patient.[facility] the event this information is protected by the Federal Confidentiality of Alcohol and Drug Abuse Patient Records regulations: The Federal rules restrict any use of the information to criminally investigate or prosecute any alcohol or drug abuse patient.[facility] the event this information is protected by the Federal Confidentiality of Alcohol and Drug Abuse Patient Records regulations: The Federal rules restrict any use of the information to criminally investigate or prosecute any alcohol or drug abuse patient.[facility] Reason for Visit (unrecogniz ed section and [...] Care Teams (unrecognized sec tion and content) Supervisor Pairing And Inspecting Relationship Specialty Start Date End Date Alseha Davenport MD [address], [place] [id number] PCP - General Internal Medicine 07/13/21 Supervisor Pairing And Inspecting Relationship Specialty Start Date End Date Alesha Davenport MD [address] [place] [address] PCP - General Internal Medicine [...] BE BASED ON THE PRIMARY CLINICAL RECORDS. [facility] Consumer Agent Portal (CAP) [facility]. provides no warranty or guarantee of the accuracy or completeness of information in this document.
--- NOTE | 2023-04-20 11:50 | PCM.DC.SUM ---
Providers Date of Admission: 04/19/23 Date of Discharge: 04/20/23 Primary Care Physician: [facility] Reason For Visit: ENCEPHALOPATHY SUSPECTED ETOH WITHDRAWAL/POLYPHARM Diagnosis Discharge Diagnosis (1) Altered level of consciousness: Status: Acute Code(s): R40.4 - Transient alteration of awareness Medications at Discharge Home Medications brexpiprazole 2 mg tablet (Rexulti) 2 tab PO DAILY 11/23/21 fluoxetine 40 mg capsule 80 cap PO DAILY 11/23/21 methylphenidate HCl 20 mg tablet (Ritalin) 20 tab PO TID 11/23/21 prazosin 1 mg capsule 2 mg PO QHS 11/23/21 prazosin 1 mg capsule (Minipress) 1 cap PO LUNCH 11/23/21 tizanidine 4 mg tablet 4 mg PO DAILY 09/25/22 cholecalciferol (vitamin D3) 50 mcg (2,000 unit) capsule (Vitamin D3) 50 mcg PO DAILY 10/02/22 divalproex 250 mg tablet,delayed release 500 mg PO DAILY 10/02/22 divalproex 250 mg tablet,delayed release 750 mg PO QHS 10/02/22 hydroxyzine pamoate 50 mg capsule 50 mg PO BID 10/02/22 omega 3-uje-yjb-fish oil 1,000 mg (120 mg-180 mg) capsule 1 cap PO BID 10/02/22 quetiapine 100 mg tablet 100 mg PO DAILY 10/02/22 quetiapine 100 mg tablet 300 mg PO DAILY 10/02/22 trazodone 100 mg tablet 100 mg PO QHS PRN Sleep 10/02/22 Hospital Course Procedures EKG and - (Chest x-ray/CT brain) Summary of Care Provided Minutes Spent on Discharge: 25 Hospital Course: Mr. Hatch is a 53-year-old white male with a past medical history of alcohol abuse, anxiety and depression, schizophrenia, and autism who presented to the emergency department on 04/19/2023 with a history of worsening confusion. Evidently, he started becoming confused approximately 5 to 6 AM and was noted not to be making any sense so he was brought to the hospital to be evaluated. [facility]. He denies any other symptoms. Patient reported the emergency department he had been recently incarcerated for at least 6 months due to a DUI and assault. His friend who was in the emergency department did report to the ED staff that the patient had drank heavily 2 days prior but patient denied this. Vital signs on presentation were unremarkable. CBC was unremarkable. His BUN was 22 with a elevated creatinine 1.72. Liver function enzymes were slightly elevated but less than 100. UA was consistent with dehydration but no evidence of UTI. His ethyl alcohol level was less than 3. CT of the brain showed no acute findings. His toxicology screen was positive for opiates, cannabis and MDMA however he is on Ritalin at baseline. In the emergency room he was treated only with IV fluids and then admitted to the medical floor. Etiology was unclear but polypharmacy was thought to possibly contribute. His procalcitonin was unremarkable at less than 0.01. At the time of admission the patient was oriented x 3. With 1 L of IV fluids his serum creatinine has returned to baseline and is currently 0.83. I evaluated the patient on the morning of 04/20/2023 and he was alert and oriented x 3. Patient states he was recently [facility] from [facility] on 17 April and he had not been getting his medications. He restarted them at discharge and feels like this event was likely related to Ambien he took. He stated he took Ambien earlier in the evening but was not quite ready to go to sleep and then suspects he became confused when his friend tried to call him. He does acknowledge he has an alcohol problem and plans on being admitted at [facility] for inpatient rehab on 04/24/2023 after he ties up loose ends at home. I encouraged him strongly to follow through with these plans and to avoid taking Ambien at all costs especially if he is not going to sleep right away. I suspect his altered level of consciousness was related to this. He states he has medications for at home and does not need any refills. We did discuss follow-up with psychiatry and he did voice interest however would like to follow with [facility] first. I did give him a referral for Dr. Ashraf to make an appointment after he is done with alcohol rehabilitation program. Discharge diagnoses: Toxic/metabolic encephalopathy-likely related to Ambien use YASMIN-resolved Chronic normocytic anemia Schizophrenia Autism Anxiety/depression ADHD Tobacco abuse Alcohol abuse Physical Exam Narrative Patient states he is currently feeling well. No complaints. States he feels that last night events were related to Ambien. Const alert, oriented x3, no apparent distress, no limitations, healthy appearing and well nourished Constitutional Narrative: Obese, middle-aged, white male, sitting up in bed, appears comfortable and nontoxic, nursing at bedside General Appearance: cooperative, comfortable, well kempt and well developed Orientation / Consciousness: awake, oriented to person, oriented to place and oriented to time Exam Limitations: no limitations Nutritional Appearance: obese HEENT normocephalic, head/scalp atraumatic, hearing grossly normal bilaterally and moist oral mucous membranes HEENT Narrative: Mallampati 2, no thrush Resp normal respiratory effort, no retractions, no use of accessory muscles and clear to auscultation bilaterally Resp Narrative: Diffusely diminished but clear Auscultation: Negative for rales, rhonchi or wheezes Cardio regular rate, regular rhythm, S1 normal heart sound, S2 normal heart sound, no murmurs, no rub, no gallops and no clicks GI normal to inspection, nondistended, normoactive bowel sounds, soft to palpation and non-tender Extremity no clubbing, cyanosis or edema Neuro oriented x3, CN's II-XII intact bilaterally, moves all extremities and no focal motor deficits Speech: speech normal Motor Exam: strength 5/5 throughout Psych affect normal Psych Narrative: Eye contact is good, patient interacts appropriately, able answer all questions appropriately Weight / BMI Weight Weight: 114 kg Body Mass Index (BMI) 36.0 ABG / Lab / Microbiology Data 04/20/23 06:00 04/20/23 06:00 Laboratory: Laboratory Results - last 24 hr 04/19/23 15:01: POC Glucose 152 H 04/19/23 15:02: WBC 11.9 H, RBC 4.47 L, Hgb 12.2 L, Hct 38.2 L, MCV 85.5, MCH 27.3, MCHC 31.9 L, RDW Std Deviation 39.9, RDW Coeff of Danish 12.9, Plt Count 312, MPV 9.3, Immature Gran % (Auto) 0.300, Neut % (Auto) 74.1 H, Lymph % (Auto) 16.3 L, [place] % (Auto) 6.4, Eos % (Auto) 2.0, Baso % (Auto) 0.9, Absolute Neuts (auto) 8.8 H, Absolute Lymphs (auto) 1.95, Nucleated RBC % 0, Sodium 141, Potassium 3.8, Chloride 109 H, Carbon Dioxide 23.0, Anion Gap 9, BUN 22 H, Creatinine 1.72 H, Est GFR (MDRD) Af Amer 53 L, Est GFR (MDRD) Non-Af 44 L, BUN/Creatinine Ratio 12.8, Glucose 161 H, Calcium 8.9, Phosphorus 3.9, Magnesium 2.2, Total Bilirubin 0.30, AST 46 H, ALT 27, Alkaline Phosphatase 73, Total Protein 7.3, Albumin 3.8, Globulin 3.5, Albumin/Globulin Ratio 1.1 04/19/23 15:46: Ethyl Alcohol < 3.0 04/19/23 16:49: Urine Color Yellow, Urine Clarity Clear, Urine pH 5.0, Ur Specific [place] 1.025, Urine Protein 30 H, Urine Glucose (UA) Normal, Urine Ketones 5 H, Urine Occult Blood Negative, Urine Nitrite Negative, Urine Bilirubin Negative, Urine Urobilinogen 1 H, Ur Leukocyte Esterase 25 H, Urine RBC 0 SEEN, Urine WBC 0-5 SEEN, Ur Squamous Epith Cells 0 SEEN, Urine Bacteria 0 SEEN, Urine Mucus 1+, Urine Opiates Screen POSITIVE H, Urine Methadone Screen NEGATIVE, Ur Barbiturates Screen NEGATIVE, Ur Phencyclidine Scrn NEGATIVE, Ur Amphetamines Screen NEGATIVE, MDMA (Ecstasy) Screen POSITIVE H, U Benzodiazepines Scrn NEGATIVE, Urine Cocaine Screen NEGATIVE, U Cannabinoids Screen POSITIVE H, Ur Drug Screen Comment 04/19/23 18:35: Procalcitonin < 0.01 04/20/23 06:00: WBC 8.2, RBC 3.82 L, Hgb 10.8 L, Hct 33.2 L, MCV 86.9, MCH 28.3, MCHC 32.5, RDW Std Deviation 41.0, RDW Coeff of Danish 13.0, Plt Count 235, MPV 9.0, Immature Gran % (Auto) 0.100, Neut % (Auto) 57.3, Lymph % (Auto) 25.5, [place] % (Auto) 10.2 H, Eos % (Auto) 5.8 H, Baso % (Auto) 1.1 H, Absolute Neuts (auto) 4.7, Absolute Lymphs (auto) 2.08, Nucleated RBC % 0, Sodium 142, Potassium 3.9, Chloride 114 H, Carbon Dioxide 26.0, Anion Gap 2 L, BUN 16, Creatinine 0.83, Estim Creat Clear Calc 103.83, Est GFR (MDRD) Af Amer 124, Est GFR (MDRD) Non-Af 102, BUN/Creatinine Ratio 19.3, Glucose 94, Hemoglobin A1c 5.0, Calcium 8.1 L, Total Bilirubin 0.40, AST 40 H, ALT 22, Alkaline Phosphatase 55, Total Protein 5.5 L, Albumin 2.7 L, Globulin 2.8, Albumin/Globulin Ratio 1.0 Radiography Diagnostic Testing: Radiology Impression Brain CT 04/19/23 15:40 IMPRESSION: Normal unenhanced CT scan of the brain. Electronically Signed: Robert Berg MD at 16:26 EST Reading Location ID and State: [address] [place] [address] Tel , Service support , Chest X-Ray 04/19/23 15:48 IMPRESSION: No acute disease Electronically Signed: Robert Berg MD at 16:16 EST Reading Location ID and State: [address] [place] [address] Tel , Service support , D/C Instructions Discharge Diet: No restrictions Discharge Activity: Return to Normal Activity Meaningful Use Info Meaningful Use Diagnoses (Choose all that apply): None applicable Discharge Plan Admission Admit Date/Time: 04/19/23 18:18 Primary Reason for Your Visit: Altered level of consciousness Attending Provider: Jeanette Tripathi [facility] Providers: Helen Villa Instructions Patient Instructions: ED ALOC, ED Confusion Discharge Orders/Prescriptions Prescriptions: Continued fluoxetine 40 mg capsule 80 cap PO DAILY Patient Comments: TAKE 2 CAPSULES BY MOUTH ONCE DAILY methylphenidate HCl [Ritalin] 20 mg tablet 20 tab PO TID Patient Comments: TAKE 1 TABLET THREE TIMES DAILY prazosin 1 mg capsule 2 mg PO QHS Patient Comments: take 1 capsule daily at 2 pm and 2 capsules by mouth at bedtime prazosin [Minipress] 1 mg capsule 1 cap PO LUNCH Patient Comments: take 1 capsule daily at 2 pm and 2 capsules by mouth at bedtime Rexulti 2 mg tablet 2 tab PO DAILY Patient Comments: take one tablet by mouth every morning tizanidine 4 mg tablet 4 mg PO DAILY Patient Comments: take one tab once daily as needed for muscle pain divalproex 250 mg tablet,delayed release (DR/EC) 500 mg PO DAILY divalproex 250 mg tablet,delayed release (DR/EC) 750 mg PO QHS hydroxyzine pamoate 50 mg capsule 50 mg PO BID Patient Comments: s/o unsure if hes been taking quetiapine 100 mg Tablet 100 mg PO DAILY Patient Comments: s/o unsure dosage of this medication Rx Instructions: EVERYDAY AT NOON. quetiapine 100 mg Tablet 300 mg PO DAILY Rx Instructions: TAKE 3 TABLETS AT BEDTIME. trazodone 100 mg tablet 100 mg PO QHS PRN (Reason: Sleep) Patient Comments: unsure if taking cholecalciferol (vitamin D3) [Vitamin D3] 50 mcg (2,000 unit) Capsule 50 mcg PO DAILY omega 9-wmi-nqz-fish oil 1,000 mg (120 mg-180 mg) capsule 1 cap PO BID Patient Comments: s/o unsure if pt. was getting in [facility] Discontinued zolpidem [Ambien] 10 mg tablet 10 tab PO QHS Patient Comments: TAKE 1 TABLET BY MOUTH EVERY EVENING for insomnia. Referrals / Follow Up: Moises Ashraf DO [Med Staff - Patternmaker Helper] - Within 1 Month (Call for an appointment to see the psychiatrist after you have completed your alcohol rehabilitation program at [facility],Rosangela Sy [Primary Care Provider] - Within 1 Month Disposition Disposition (needs filled in before D/C Order can be placed): Home, Self Care Charges/Coding Visit Charges Inpatient E&M: 35179 Disch Hosp
[2023-04-20 12:42] VITALS: BP 134/64; PULSE 70; RESP 18; TEMP 37.1; O2SAT 99
--- NOTE | 2023-04-20 12:51 | CHAPLAIN ---
Type of Pastoral Visit _x__ Initial Visit ___ Follow-up Visit ___ On-call Visit ___ General Patient Visit ___ Spiritual Assessment ___ Family Conference ___ Bereavement ___ Rapid Response ___ Code Blue ___ Other (describe below) Pastoral Care Referral From _x__ Patient ___ Family ___ Nurse ___ Physician ___ Global Safety Officer ___ Representative Government Relations ___ Other (describe below) Sacrament/Intervention _x__ Active listening ___ Anointing ___ Rastafari ___ Bereavement ___ Communion _x__ Gogo exploration ___ _x__ Life review _x__ Prayer ___ Reconciliation ___ Sacrament of Sick _x__ Supportive presence ___ Wedding ___ Other (describe below) Pastoral Comments patient is very open about his situation and is welcoming of spiritual care support; pt acknowledges his need to overcome alcoholism but realizes that he must address the wounds from within and not just the symptoms ; pt has a plan for rehab in a gogo based facility; pt talks about his new gogo after a life of agnosticism; pt gives life review and what has changed in recent years/months; pt is encouraged to pursue his health and healing; pt welcomes prayer and expresses gratitude for the extended time given to talk about his life and his needs
== END 2023-04-20 12:25 | disposition home or self-care (01) ==
LOC: ED 18:26 → MS3 04-20 06:52
PROVIDERS: Admitting Provider Family Medicine; Emergency Provider Emergency Medicine; Visit Provider Internal Medicine
DX: G92.8 Other toxic encephalopathy (principal); F20.9 Schizophrenia, unspecified; N17.9 Acute kidney failure, unspecified; F32.A Depression, unspecified; F10.10 Alcohol abuse, uncomplicated; F17.290 Nicotine dependence, other tobacco product, uncomplicated; F41.9 Anxiety disorder, unspecified; F90.9 Attention-deficit hyperactivity disorder, unspecified type; F84.0 Autistic disorder; R73.9 Hyperglycemia, unspecified; Z79.899 Other long term (current) drug therapy
CPT/HCPCS: 36415; 70450; 71045; 80053; 80307; 80320; 81001; 82962; 83036; 83735; 84100; 84145; 85025; 93005; 94668; 96361; 96374; 97161; 99221; 99285; J7030; J7040; A4216; G0378; G0480

== ENCOUNTER 2023-10-11 12:45 | Emergency (ER) | payer MEDICAID, SELFPAY ==
[2023-10-11 12:46] VITALS: BP 144/83; PULSE 103; RESP 16; TEMP 36.8; O2SAT 97; BMI 35.9
--- NOTE | 2023-10-11 14:26 | EX.ED.GENINJ ---
HPI <JULIO Cisneros - Last Filed: 10/11/23 15:32> History of Present Illness Chief Complaint: Laceration Narrative Narrative: Patient is a 53-year-old male with history of night terrors, anxiety, depression who presents to the emergency department after sustaining an injury while sleeping. Patient sleeps with a knife at his bedside, patient was having a dream when he grabbed a knife, and stabbing his left hand in between the first and second finger on the left hand. Patient is right-handed. Patient states he has full range of motion however the pain is getting severe and he is here for evaluation. [facility] <JULIO Cisneros - Last Filed: 10/11/23 15:32> [facility] Medical History (Updated 10/11/23 @ 15:32 by JULIO Cisneros) Nicotine vapor product user Anxiety and depression Cannabis abuse Autism Schizophrenia Tobacco use History of alcohol abuse Alcohol abuse Cataract (lens) fragments in eye following cataract surgery, bilateral Home Medications ?Medication ?Instructions ?Recorded ?Last Taken ?Type brexpiprazole 2 mg tablet (Rexulti) 2 tab PO DAILY 11/23/21 Unknown History fluoxetine 40 mg capsule 80 cap PO DAILY 11/23/21 Unknown History methylphenidate HCl 20 mg tablet 20 tab PO TID 11/23/21 Unknown History (Ritalin) prazosin 1 mg capsule 2 mg PO QHS 11/23/21 Unknown History prazosin 1 mg capsule (Minipress) 1 cap PO LUNCH 11/23/21 Unknown History tizanidine 4 mg tablet 4 mg PO DAILY 09/25/22 Unknown History cholecalciferol (vitamin D3) 50 50 mcg PO DAILY 10/02/22 Unknown History mcg (2,000 unit) capsule (Vitamin D3) divalproex 250 mg tablet,delayed 500 mg PO DAILY 10/02/22 Unknown History release divalproex 250 mg tablet,delayed 750 mg PO QHS 10/02/22 Unknown History release hydroxyzine pamoate 50 mg capsule 50 mg PO BID 10/02/22 Unknown History omega 4-hka-jeq-fish oil 1,000 mg 1 cap PO BID 10/02/22 Unknown History (120 mg-180 mg) capsule quetiapine 100 mg tablet 100 mg PO DAILY 10/02/22 Unknown History quetiapine 100 mg tablet 300 mg PO DAILY 10/02/22 Unknown History trazodone 100 mg tablet 100 mg PO QHS PRN Sleep 10/02/22 Unknown History hydrocodone-acetaminophen 5-325mg 1 tab PO Q6H PRN PRN Pain 3 days 10/11/23 Unknown Rx 5mg-325mg #6 TABLETS Allergy/AdvReac Type Severity Reaction Status Date / Time No Known Allergies Allergy Verified 10/06/22 19:42 Family History (Updated 04/19/23 @ 19:[address] Helen Villa MD) Mother COPD (chronic obstructive pulmonary disease) Hypertension Diabetes Father Hypertension Alcohol abuse Surgical History History of shoulder surgery History of tonsillectomy and adenoidectomy History of appendectomy H/O cataract removal with insertion of prosthetic lens Social History (Updated 04/19/23 @ 19:[address] Helen Villa MD) household members: friend(s) Smoking Status: Former smoker Electronic Cigarette Use: with nicotine how long ago did patient quit smoking: Cigarette->vaping several yrs, uses heavy. alcohol intake: current alcohol intake frequency: 3 or more drinks per day details: Reports binging history. substance use type: marijuana ROS <JULIO Cisneros - Last Filed: 10/11/23 15:32> ROS ED ROS Narrative Constitutional: Negative for fever, chills, weight loss, weakness Eyes: Negative for vision loss, vision change, double vision ENT: Negative for any sore throat, ear pain, congestion Cardiovascular: Negative for any chest pain, tightness, palpitations Respiratory: Negative for any cough, sputum production, hemoptysis, dyspnea, dyspnea on exertion, orthopnea Gastrointestinal: Negative for any abdominal pain, nausea, vomiting, diarrhea, constipation, blood in stool, blood in vomit : Negative for any urinary frequency, dysuria, retention, blood in urine Muscle skeletal: Negative for any neck pain, back pain. Positive for laceration of left hand Neurological: Negative for any headache, syncope, dizziness Skin: Negative for any rashes, itching, abrasions, lacerations Psychiatric: Negative for any depression, anxiety, stress, suicidal ideation, homicidal ideation Hematologic: Negative for any excessive bruising, easy bleeding EXAM <JULIO Cisneros - Last Filed: 10/11/23 15:32> Physical Exam Narrative Exam Narrative: Vital signs reviewed. HEET: Head normocephalic atraumatic, TMs clear bilaterally. Posterior pharynx is clear, moist mucous membranes. Nares clear bilaterally. Neck: Supple with no lymphadenopathy or tenderness. No signs of meningismus. Cardiac: Regular rate and rhythm no murmurs gallops or rubs, equal peripheral pulses bilaterally. Respiratory: Lungs clear to auscultation bilaterally. No chest tenderness. Abdomen: Soft, nontender, nondistended. No abdominal bruit or pulsatile masses. No hepatosplenomegaly Extremities: No peripheral edema, no signs of gross trauma or deformity. Active full range of motion of all extremities. Neuro: Cranial nerves II through XII intact, no focal neurological deficits. Skin: Clean dry and intact with no rash, purpura, petechiae, vesicles or pustules. Positive for 2.5 cm laceration in between the left thumb and index finger. Patient has full range of motion. This does appear to be full-thickness. Backs/flank: No CVA tenderness, no midline spinal tenderness, no deformity. Psych: Normal mood and affect. No SI, HI or acute psychosis. Const Vital Signs: 10/11/23 12:46 10/11/23 15:52 Temperature 98.2 F 98.1 F Temperature Source Temporal Pulse Rate 103 H 98 Respiratory Rate 16 16 Blood Pressure 144/83 H 135/82 H Blood Pressure Mean 103 99 Pulse Ox 97 98 Oxygen Delivery Method Room Air Positive well nourished and well developed General Appearance ED: well developed <Dr. Christian Singleton DO - Last Filed: 10/11/23 16:26> Physical Exam Const Vital Signs: 10/11/23 12:46 10/11/23 15:52 Temperature 98.2 F 98.1 F Temperature Source Temporal Pulse Rate 103 H 98 Respiratory Rate 16 16 Blood Pressure 144/83 H 135/82 H Blood Pressure Mean 103 99 Pulse Ox 97 98 Oxygen Delivery Method Room Air MDM <JULIO Cisneros - Last Filed: 10/11/23 15:32> MDM Radiography Diagnostic Testing: Clinical Impression(s) from Imaging Studies Hand X-Ray 10/11/23 14:35 IMPRESSION: Soft tissue injury in the region of the thenar space. No radiopaque foreign body is seen. No bony abnormalities present. Electronically Signed: Jos Freeman MD at 14:58 EDT , Treatment and Re-Evaluation Narrative: Differential diagnosis includes however is not limited to: Full-thickness laceration, tendon laceration, fracture, simple laceration Patient appears to be in no obvious respiratory distress vital signs are stable. Presenting to the emergency department with complaints of laceration to the left hand. Patient is full range of motion, bleeding is controlled. Patient will receive a three-view x-ray of the left hand to ensure there is no bone abnormality. All radiologic examinations were read, reviewed by the emergency department attending. From these reads, a plan of care will be put in place. Tetanus vaccination within 5 years. Patient's x-ray of the left hand showed some soft tissue injury in the region of the thenar space, no radiopaque foreign body, no acute bony abnormality. Patient wound was irrigated copiously, anesthetized with lidocaine with epinephrine. Sterile gloves, sterile drapes were used. I was able to place 5 simple to sutures of 4-0 Ethilon. Edges approximated nicely. Patient will be placed in a dressing, thumb spica splint. He will have these removed in about 10 days from his PCP. He was given instruction to look for any signs of redness or infection. Happy with the plan of care, all questions answered, stable for discharge. <Dr. Christian Singleton, DO - Last Filed: 10/11/23 16:26> MDM Radiography Diagnostic Testing: Clinical Impression(s) from Imaging Studies Hand X-Ray 10/11/23 14:35 IMPRESSION: Soft tissue injury in the region of the thenar space. No radiopaque foreign body is seen. No bony abnormalities present. Electronically Signed: Jos Freeman MD at 14:58 EDT , Treatment and Re-Evaluation Narrative: Differential diagnosis includes however is not limited to: Full-thickness laceration, tendon laceration, fracture, simple laceration Patient appears to be in no obvious respiratory distress vital signs are stable. Presenting to the emergency department with complaints of laceration to the left hand. Patient is full range of motion, bleeding is controlled. Patient will receive a three-view x-ray of the left hand to ensure there is no bone abnormality. All radiologic examinations were read, reviewed by the emergency department attending. From these reads, a plan of care will be put in place. Tetanus vaccination within 5 years. Patient's x-ray of the left hand showed some soft tissue injury in the region of the thenar space, no radiopaque foreign body, no acute bony abnormality. Patient wound was irrigated copiously, anesthetized with lidocaine with epinephrine. Sterile gloves, sterile drapes were used. I was able to place 5 simple to sutures of 4-0 Ethilon. Edges approximated nicely. Patient will be placed in a dressing, thumb spica splint. He will have these removed in about 10 days from his PCP. He was given instruction to look for any signs of redness or infection. Happy with the plan of care, all questions answered, stable for discharge. 53-year-old male presenting with laceration to the left hand. Differential as above. Liliana x-ray of the left hand 3 views on my interpretation show no acute fracture soap and warm bodies. Radiology interprets this 8 out of 3 months. Patient had sutures placed by the LAW OFFICE ASSISTANT. Good approximation was achieved. Patient requested medication and was given Raymond. He is getting prescription for home. Wound care shoulder pain and return cautions discussed. Discharge Plan Triage Chief Complaint: Laceration ED Midlevel Provider: Damien Dejesus ED Provider: Christian Singleton Dx/Rx/DC Orders Clinical Impression: Hand laceration Instructions: ED Laceration Extremity, ED Laceration Minimize Scars Prescriptions: New hydrocodone-acetaminophen 5-325 mg tablet 1 tab PO Q6H PRN PRN (Reason: Pain) 3 Days Qty: 6 0RF No Action fluoxetine 40 mg capsule 80 cap PO DAILY Patient Comments: TAKE 2 CAPSULES BY MOUTH ONCE DAILY methylphenidate HCl [Ritalin] 20 mg tablet 20 tab PO TID Patient Comments: TAKE 1 TABLET THREE TIMES DAILY prazosin 1 mg capsule 2 mg PO QHS Patient Comments: take 1 capsule daily at 2 pm and 2 capsules by mouth at bedtime prazosin [Minipress] 1 mg capsule 1 cap PO LUNCH Patient Comments: take 1 capsule daily at 2 pm and 2 capsules by mouth at bedtime Rexulti 2 mg tablet 2 tab PO DAILY Patient Comments: take one tablet by mouth every morning tizanidine 4 mg tablet 4 mg PO DAILY Patient Comments: take one tab once daily as needed for muscle pain divalproex 250 mg tablet,delayed release (DR/EC) 500 mg PO DAILY divalproex 250 mg tablet,delayed release (DR/EC) 750 mg PO QHS hydroxyzine pamoate 50 mg capsule 50 mg PO BID Patient Comments: s/o unsure if hes been taking quetiapine 100 mg Tablet 100 mg PO DAILY Patient Comments: s/o unsure dosage of this medication Rx Instructions: EVERYDAY AT NOON. quetiapine 100 mg Tablet 300 mg PO DAILY Rx Instructions: TAKE 3 TABLETS AT BEDTIME. trazodone 100 mg tablet 100 mg PO QHS PRN (Reason: Sleep) Patient Comments: unsure if taking cholecalciferol (vitamin D3) [Vitamin D3] 50 mcg (2,000 unit) Capsule 50 mcg PO DAILY omega 9-iih-ezd-fish oil 1,000 mg (120 mg-180 mg) capsule 1 cap PO BID Patient Comments: s/o unsure if pt. was getting in [place] [facility] Primary Care Provider: [facility] - Activity Restrictions/Additional Instructions: The sutures in your left hand need to be removed in 7 to 10 days. Wear the thumb spica to decrease movement of your thumb to keep the integrity of the stitches. Return for any worsening symptoms. Print Language: Filipino Disposition Disposition: Home, Self Care Discharge Date/Time: 10/11/23 16:01
[2023-10-11] MEDS: Acetaminophen 500 MG Tablet 1000 MG PO (14:32)
--- NOTE | 2023-10-11 14:35 | RAD_ITS ---
STUDY: X-RAY - LEFT HAND REASON FOR EXAM: Male, 53 years old. Laceration between the first and second digits. TECHNIQUE: 3 view(s) of the hand. COMPARISON: None. FINDINGS: Normal radiocarpal articulation. Normal distal radioulnar joint. Normal visualized carpal bones. Normal carpal articulations Normal carpometacarpal articulation of the thumb. Normal second through fifth carpometacarpal joints. Normal metacarpi. Normal metacarpophalangeal joint of the thumb. Normal interphalangeal joint of the thumb. Normal proximal and distal phalanges of the thumb. Normal metacarpophalangeal joints of the second through fifth fingers. Normal proximal and distal interphalangeal joints of the second through fifth fingers. Normal phalanges of the second through fifth fingers. Soft tissue injury seen in the region of the thenar space. No radiopaque foreign body is seen. RAD/Hand Min 3 Views IMPRESSION: Soft tissue injury in the region of the thenar space. No radiopaque foreign body is seen. No bony abnormalities present. Electronically Signed: Jos Freeman MD at 14:58 EDT ,
[2023-10-11 15:52] VITALS: BP 135/82; PULSE 98; RESP 16; TEMP 36.7; O2SAT 98
[2023-10-11] MEDS: Lidocaine 1% /Epi 1:100 (20ml) 20 ML Vial 4 ML INFILT (16:02)
== END 2023-10-11 16:01 | disposition home or self-care (01) ==
PROVIDERS: Emergency Provider Student in an Organized Health Care Education/Training Program; Visit Provider Student in an Organized Health Care Education/Training Program
DX: S61.412A Laceration without foreign body of left hand, initial encounter (principal); F20.9 Schizophrenia, unspecified; F12.90 Cannabis use, unspecified, uncomplicated; Z87.891 Personal history of nicotine dependence; X58.XXXA Exposure to other specified factors, initial encounter
CPT/HCPCS: 12001; 73130; 99284

== ENCOUNTER 2023-10-16 14:41 | Emergency (ER) | payer MEDICAID, SELFPAY ==
[2023-10-16 14:41] VITALS: BP 131/68; PULSE 83; RESP 19; TEMP 36.3; O2SAT 95; BMI 35.9
[2023-10-16 14:43] VITALS: BP 131/68; PULSE 83; RESP 19; TEMP 36.3; O2SAT 95
--- NOTE | 2023-10-16 15:30 | ED.RN ---
I'm going to a different ER that can take care of me. I've been waiting for an hour.
== END 2023-10-16 15:30 | disposition left against medical advice (07) ==
LOC: ED 15:35
DX: Z00.00 Encounter for general adult medical examination without abnormal findings (principal)
CPT/HCPCS: 99282

== ENCOUNTER 2023-10-20 18:42 | Emergency (ER) | payer MEDICAID, SELFPAY ==
[2023-10-20 18:43] VITALS: BP 142/79; PULSE 104; RESP 16; TEMP 36.8; O2SAT 98; BMI 35.9
[2023-10-20 18:45] VITALS: BP 142/79; PULSE 104; RESP 16; TEMP 36.8; O2SAT 98
[2023-10-20] MEDS: Lidocaine/Epi/Tetracaine 50 ML 1 APPLIC TOPICAL (19:14)
--- NOTE | 2023-10-20 19:16 | EX.ED.DYSGE1 ---
HPI History of Present Illness Chief Complaint: Wound Informant: patient Onset/Context/Timing Onset: Days Narrative Narrative: Patient presents secondary to wound dehiscence. Patient was seen on October 10 with a left hand laceration to the webspace between the thumb and index finger. 5 sutures were placed. Patient states 2 days ago the wound opened up and he has had some mild white drainage from the area. He has a thumb spica splint that he has reportedly been wearing. Patient is right-hand dominant. [facility] Medical History Nicotine vapor product user Anxiety and depression Cannabis abuse Autism Schizophrenia Tobacco use History of alcohol abuse Alcohol abuse Cataract (lens) fragments in eye following cataract surgery, bilateral Home Medications ?Medication ?Instructions ?Recorded ?Last Taken ?Type brexpiprazole 2 mg tablet (Rexulti) 2 mg PO DAILY 11/23/21 Unknown History fluoxetine 40 mg capsule 80 cap PO DAILY 11/23/21 Unknown History methylphenidate HCl 20 mg tablet 20 tab PO TID 11/23/21 Unknown History (Ritalin) prazosin 1 mg capsule 2 mg PO QHS 11/23/21 Unknown History prazosin 1 mg capsule (Minipress) 1 cap PO LUNCH 11/23/21 Unknown History cholecalciferol (vitamin D3) 50 50 mcg PO DAILY 10/02/22 Unknown History mcg (2,000 unit) capsule (Vitamin D3) hydroxyzine pamoate 50 mg capsule 50 mg PO BID 10/02/22 Unknown History omega 3-cow-dow-fish oil 1,000 mg 1 cap PO BID 10/02/22 Unknown History (120 mg-180 mg) capsule trazodone 100 mg tablet 100 mg PO QHS PRN Sleep 10/02/22 Unknown History hydrocodone-acetaminophen 5-325mg 1 tab PO Q6H PRN PRN Pain 3 days 10/11/23 Unknown Rx 5mg-325mg #6 TABLETS cephalexin 500 mg capsule 500 mg PO Q12 #14 CAPSULES 10/20/23 Unknown Rx zolpidem 10 mg tablet 10 mg PO QPM 10/20/23 Unknown History Allergy/AdvReac Type Severity Reaction Status Date / Time No Known Allergies Allergy Verified 10/16/23 14:43 Family History Mother COPD (chronic obstructive pulmonary disease) Hypertension Diabetes Father Hypertension Alcohol abuse Surgical History History of shoulder surgery History of tonsillectomy and adenoidectomy History of appendectomy H/O cataract removal with insertion of prosthetic lens Social History household members: friend(s) Smoking Status: Current some day smoker tobacco type: e-cigarettes Electronic Cigarette Use: with nicotine how long ago did patient quit smoking: Cigarette->vaping several yrs, uses heavy. alcohol intake: current alcohol intake frequency: 3 or more drinks per day details: Reports binging history. substance use type: marijuana ROS ROS ED Constitutional Constitutional ED: Denies chills or fever(s) ENT ENT ED: Denies rhinorrhea or sore throat Cardiovascular Cardiovascular: Denies chest pain Respiratory/Chest Respiratory/Chest: Denies cough or dyspnea Gastrointestinal Gastrointestinal: Denies abdominal pain, nausea or vomiting Musculoskeletal Musculoskeletal: Reports extremity pain; Denies back pain Integumentary Reports other Details: Wound dehiscence left hand ; Denies Abrasions or rash Neurologic Neurologic: Denies headache(s) or weakness Psychiatric Psychiatric: Denies anxiety or depression Allergic/Immunologic Allergic/Immunologic ED: Denies lip swelling or urticaria EXAM Physical Exam Const Vital Signs: 10/20/23 18:43 10/20/23 18:45 10/20/23 19:45 Temperature 98.2 F 98.2 F 98 F Temperature Source Temporal Temporal Axillary Pulse Rate 104 H 104 H 92 Respiratory Rate 16 16 16 Blood Pressure 142/79 H 142/79 H 155/106 H Blood Pressure Mean 100 100 122 Pulse Ox 98 98 98 Oxygen Delivery Method Room Air Room Air Room Air 10/20/23 20:00 Temperature 98 F Temperature Source Axillary Pulse Rate 92 Respiratory Rate 16 Blood Pressure 155/106 H Blood Pressure Mean 122 Pulse Ox 98 Oxygen Delivery Method Room Air Positive well nourished and well developed General Appearance ED: well developed HEENT Reports moist mucous membranes Eyes EOMs intact bilaterally Chest Wall inspection of chest normal and palpation of chest normal Resp normal respiratory effort and clear to auscultation bilaterally Cardio regular rate and regular rhythm GI normal to inspection, nondistended, normoactive bowel sounds Extremity Extremity Narrative: Patient has a 2 cm wound to the webspace between the thumb and index finger of the left hand. Wound has dehisced and opened. Sutures are in place on either side of the opened wound. No erythema or sign of cellulitis. No fluctuance or drainage at this time. Neuro oriented x3 Sensorium / Orientation: alert Psych mental status grossly normal MDM MDM MDM Narrative Medical decision making narrative: Let was applied to the wound on the left hand. When I went back to remove the sutures patient is complaining of a lot of anxiety. He was given 1 mg of p.o. Ativan. Wound is cleansed. 5 fold sutures removed without difficulty. Wound is thoroughly cleansed. Antibiotic ointment is placed to the wound followed by a dressing. We discussed wound care. I will treat him with Keflex to help prevent infection. First dose will be given here and prescription sent to the pharmacy. Discharge Plan Triage Chief Complaint: Wound ED Provider: Daxa Beltran Dx/Rx/DC Orders Clinical Impression: Open wound of left hand Instructions: ED Wound Care Prescriptions: New cephalexin 500 mg capsule 500 mg PO Q12 Qty: 14 0RF No Action fluoxetine 40 mg capsule 80 cap PO DAILY Patient Comments: TAKE 2 CAPSULES BY MOUTH ONCE DAILY methylphenidate HCl [Ritalin] 20 mg tablet 20 tab PO TID Patient Comments: TAKE 1 TABLET THREE TIMES DAILY prazosin 1 mg capsule 2 mg PO QHS Patient Comments: take 1 capsule daily at 2 pm and 2 capsules by mouth at bedtime prazosin [Minipress] 1 mg capsule 1 cap PO LUNCH Patient Comments: take 1 capsule daily at 2 pm and 2 capsules by mouth at bedtime Rexulti 2 mg tablet 2 mg PO DAILY Patient Comments: take one tablet by mouth every morning hydroxyzine pamoate 50 mg capsule 50 mg PO BID Patient Comments: s/o unsure if hes been taking trazodone 100 mg tablet 100 mg PO QHS PRN (Reason: Sleep) Patient Comments: unsure if taking cholecalciferol (vitamin D3) [Vitamin D3] 50 mcg (2,000 unit) Capsule 50 mcg PO DAILY omega 2-jzo-rtm-fish oil 1,000 mg (120 mg-180 mg) capsule 1 cap PO BID Patient Comments: s/o unsure if pt. was getting in snf hydrocodone-acetaminophen 5-325 mg tablet 1 tab PO Q6H PRN PRN (Reason: Pain) 3 Days Qty: 6 0RF zolpidem 10 mg tablet 10 mg PO QPM Primary Care Provider: Medical Rosangela Small Referrals: Medical Staci,Rosangela Sy [Primary Care Provider] - 1 Week Print Language: Kazakh Disposition Disposition: Home, Self Care
[2023-10-20 19:45] VITALS: BP 155/106; PULSE 92; RESP 16; TEMP 36.6; O2SAT 98
[2023-10-20] MEDS: LORazepam 1 MG Tablet PO (19:45)
[2023-10-20 20:00] VITALS: BP 155/106; PULSE 92; RESP 16; TEMP 36.6; O2SAT 98
[2023-10-20 20:23] VITALS: BP 140/109; PULSE 88; RESP 18; TEMP 36.5; O2SAT 98
[2023-10-20] MEDS: Cephalexin 250 MG Capsule 500 MG PO (20:26)
== END 2023-10-20 20:30 | disposition home or self-care (01) ==
PROVIDERS: Emergency Provider Emergency Medicine; Visit Provider Emergency Medicine
DX: S61.402A Unspecified open wound of left hand, initial encounter (principal); F20.9 Schizophrenia, unspecified; F17.290 Nicotine dependence, other tobacco product, uncomplicated; Z90.49 Acquired absence of other specified parts of digestive tract; F41.8 Other specified anxiety disorders; Z79.899 Other long term (current) drug therapy
CPT/HCPCS: 99282

== ENCOUNTER → 2023-11-06 | Outpatient (CLI) | payer MEDICAID, SELFPAY ==
[2023-11-06 17:11] LABS: Absolute Lymphocyte Count 1.69 X10^3/uL (0.83-4.51); Absolute Neutrophil Count 5.9 X10^3/uL (2.0-7.7); Basophil# 0.11 X10^3/uL; Basophil% 1.3 % (0-1); Eosinophil# 0.25 X10^3/uL; Eosinophils% 2.9 % (0-5); Hematocrit 34.9 % (40-54); Hemoglobin 11.2 g/dL (13.0-16.5); Lymphocyte # 1.69 X10^3/ul (0.83-4.51); Lymphocyte % 19.6 % (19-41); Mean Corp Hgb Conc 32.1 g/dL (32-36); Mean Corpuscular Hgb 28.9 pg (27.0-32.0); Mean Corpuscular Volume 90.2 fL (80-94); Mean Platelet Vol. 8.7 fl (6.2-12.0); NRBC Flagged by Analyzer 0 % (0-5); Neutrophil # 5.92 X10^3/uL (2.7-7.7); Neutrophil % 68.7 % (47-70); Platelet Count 348 K/mm3 (150-450); RBC Distribution Width SD 52.7 fl (35.1-43.9); Red Blood Count 3.87 M/mm3 (4.6-6.2); White Blood Count 8.6 K/mm3 (4.4-11.0)
[2023-11-06 17:25] LABS: Vitamin B12 602 pg/mL (211-911)
[2023-11-06 17:27] LABS: Hemoglobin A1c 4.9 % (3.8-5.6)
[2023-11-06 17:37] LABS: ALB/GLOB Ratio 0.9 RATIO (0.9-2.4); AST(SGOT) 34 U/L (15-37); Alanine Aminotransfer ALT/SGPT 31 U/L (16-61); Albumin, Serum 3.2 g/dL (3.2-5.0); Alkaline Phosphatase 93 U/L (45-117); Anion Gap 9 (5-15); BUN 16 mg/dL (7-18); BUN/Creat Ratio 21.9 RATIO (10-20); Calcium,Total 8.5 mg/dL (8.5-10.1); Chloride 106 mmol/L (98-107); Cholesterol 158 mg/dL (200); Creatinine, Serum 0.73 mg/dL (0.70-1.30); EST Glomerular Filtration Rate 118 mL/min (>60); Est Glom Filt Rate - Afr Amer 143 mL/min (>60); Globulin 3.5 g/dL (2.2-4.2); Glucose 100 mg/dL (74-106); High Density Lipoprotein 64 mg/dL; Potassium 3.1 mmol/L (3.5-5.1); Protein, Total 6.7 g/dL (6.4-8.2); Sodium Level 138 mmol/L (136-145); Thyroid Stim Hormone (TSH) 0.94 uIU/mL (0.358-3.74); Triglycerides 89 mg/dL; Very Low Density Lipoprotein 18 mg/dL (5-40)
== END | disposition home or self-care (01) ==
LOC: VSLAB 15:06
PROVIDERS: Visit Provider Nurse Practitioner Family
DX: R25.1 Tremor, unspecified (principal); M54.42 Lumbago with sciatica, left side; Z13.220 Encounter for screening for lipoid disorders; Z13.1 Encounter for screening for diabetes mellitus
CPT/HCPCS: 36415; 80053; 80061; 82607; 83036; 83735; 84443; 85025

== ENCOUNTER 2024-08-27 10:20 | Inpatient (IN) | payer MEDICAID, SELFPAY ==
[2024-08-27] VITALS (18 sets, daily range): BP systolic 110–141; BP diastolic 57–84; PULSE 59–74; RESP 15–24; TEMP 36.1–36.7; O2SAT 92–99; BMI 33.8
[2024-08-27] MEDS: 0.9% Normal Saline (1000mL) 1,000 ML 999 ML IV (11:07)
[2024-08-27] MEDS: Ondansetron 4 MG/2 ML Vial IV (11:07)
[2024-08-27] MEDS: morphine 8 MG/ML Syringe IV (11:07)
--- NOTE | 2024-08-27 11:10 | ED.VIS.GI ---
HPI HPI - GI History of Present Illness Chief Complaint: Abd Pain Informant: patient Narrative Narrative: Patient is a 54-year-old male with history of spinal stenosis and back pain, alcohol abuse, schizophrenia, autism and nicotine use presenting from home for abdominal pain, nausea and vomiting. Patient states about 11 PM last night he coughed and suddenly felt a bulge in his bellybutton area. He had pain there. He had pain throughout the night in that area but now intermittently radiates up into his chest. He has had associated nausea and vomiting. He is concerned that his insides are black because his vomit has been dark. Does think he has passed gas today but is more unsure about that. Denies any known history of hernia. Has not been able to eat or drink anything today. Last ate yesterday evening. No other complaints or concerns at this time. Denies any abdominal surgical history. [facility] Medical History Nicotine vapor product user Anxiety and depression Cannabis abuse Autism Schizophrenia Tobacco use History of alcohol abuse Alcohol abuse Cataract (lens) fragments in eye following cataract surgery, bilateral Home Medications ?Medication ?Instructions ?Recorded ?Last Taken ?Type brexpiprazole 2 mg tablet (Rexulti) 2 mg PO DAILY 11/23/21 08/26/24 History fluoxetine 40 mg capsule 80 cap PO DAILY 11/23/21 08/26/24 History methylphenidate HCl 20 mg tablet 20 tab PO TID 11/23/21 08/26/24 History (Ritalin) cholecalciferol (vitamin D3) 50 50 mcg PO DAILY 10/02/22 08/26/24 History mcg (2,000 unit) capsule (Vitamin D3) omega 7-jnp-nyy-fish oil 1,000 mg 1 cap PO BID 10/02/22 08/26/24 History (120 mg-180 mg) capsule zolpidem 10 mg tablet 10 mg PO QPM 10/20/23 08/26/24 History prazosin 1 mg capsule 3 mg PO QHS 01/01/24 08/26/24 History tizanidine 4 mg tablet 4 mg PO QHS 01/01/24 08/26/24 History Allergy/AdvReac Type Severity Reaction Status Date / Time No Known Allergies Allergy Verified 08/27/24 10:21 Family History Mother COPD (chronic obstructive pulmonary disease) Hypertension Diabetes Father Hypertension Alcohol abuse Surgical History History of shoulder surgery History of tonsillectomy and adenoidectomy H/O cataract removal with insertion of prosthetic lens Social History household members: friend(s) Smoking Status: Current some day smoker tobacco type: cigarettes and e-cigarettes Electronic Cigarette Use: with nicotine how long ago did patient quit smoking: Cigarette->vaping several yrs, uses heavy. alcohol intake: current alcohol intake frequency: 3 or more drinks per day details: Reports binging history. substance use type: marijuana ROS ROS ED Constitutional Constitutional ED: Reports sweats; Denies fever(s) Cardiovascular Cardiovascular: Denies chest pain Respiratory/Chest Respiratory/Chest: Denies cough Gastrointestinal Gastrointestinal: Reports abdominal pain, nausea and vomiting Musculoskeletal Musculoskeletal: Denies back pain Integumentary Denies rash Neurologic Neurologic: Denies weakness Psychiatric Psychiatric: Reports anxiety Hematologic/Lymphatic Hematologic/Lymphatic: Denies easy bleeding or easy bruising EXAM Physical Exam Const Vital Signs: 08/27/24 10:21 08/27/24 11:20 08/27/24 12:00 Temperature 98.0 F Temperature Source Oral Pulse Rate 74 65 Respiratory Rate 24 H 18 Blood Pressure 138/75 H 135/73 H 141/69 H Blood Pressure Mean 96 93 93 Pulse Ox 99 94 Oxygen Delivery Method Room Air Room Air 08/27/24 13:00 08/27/24 13:25 08/27/24 14:12 Temperature 98 F 98 F Temperature Source Pulse Rate 65 62 62 Respiratory Rate 16 16 Blood Pressure 139/77 H 139/77 H 139/77 H Blood Pressure Mean 97 97 Pulse Ox 94 94 94 Oxygen Delivery Method Room Air Room Air Positive well nourished, well developed and unkempt Constitutional Narrative: Uncomfortable. General Appearance ED: unkempt and well developed HEENT Reports dry mucous membranes Mouth ED: Yes dry mucous membranes Mouth: dry mucous membranes Eyes PERRL Resp normal respiratory effort and clear to auscultation bilaterally Cardio regular rate and regular rhythm GI GI Narrative: Hypoactive bowel sounds present. There is an abdominal hernia with some mild overlying redness present. It is tender to palpation and does not reduce with direct constant pressure. Palpation: Negative for guarding or rigid Extremity full ROM Neuro Sensorium / Orientation: alert, oriented to person, oriented to place and oriented to time Motor Exam: Negative for general weakness Psych Appearance: unkempt Mood & Affect: anxious and tearful Skin Skin Narrative: Mild redness over the umbilicus MDM MDM MDM Narrative Medical decision making narrative: Patient evaluated for umbilical pain and associated nausea and vomiting. Patient appears quite uncomfortable upon initial evaluation. Appears to have incarcerated umbilical hernia. Ice pack is applied and bedside reduction attempted but unsuccessful. Patient is given pain medication including morphine as well as Zofran and IV fluids. Workup including CBC, BMP, liver panel, lipase and lactate as well as CT abdomen pelvis is obtained. Patient does have a significant leukocytosis of 20 but otherwise is a normal CBC. Lipase and CMP normal. Lactate is elevated which is concerning for ischemia in the setting of this acute hernia. CT of the abdomen and pelvis shows a small local hernia containing fat and a short segment of minimally dilated small bowel. There are 2 transition points associated with entry and exit of the hernia sac and early closed-loop obstruction is possible. There is also signs of an early mechanical small bowel obstruction. This is consistent with patient's acute presentation. General surgery, Dr. Hernández, is paged. Evaluates the patient and will take him to the OR. Will order perioperative antibiotics. Patient is agreeable. On repeat evaluation he is much improved from a pain standpoint point. Lab Data Attestation: I reviewed the patient's lab results. Labs: Laboratory Results - last 24 hr 08/27/24 08/27/24 10:30 11:45 WBC 22.0 H RBC 5.19 Hgb 15.3 Hct 43.7 MCV 84.2 MCH 29.5 MCHC 35.0 RDW Std Deviation 41.2 RDW Coeff of Danish 13.4 Plt Count 421 MPV 9.8 Immature Gran % (Auto) 0.500 Neut % (Auto) 74.4 H Lymph % (Auto) 18.7 L Hand % (Auto) 5.3 Eos % (Auto) 0.4 Baso % (Auto) 0.7 Absolute Neuts (auto) 16.4 H Absolute Lymphs (auto) 4.11 Nucleated RBC % 0 Sodium 139 Potassium 3.4 Chloride 100 Carbon Dioxide 20.9 L Anion Gap 18 H BUN 6 Creatinine 0.96 Estim Creat Clear Calc 105.24 Est GFR (MDRD) Non-Af 93 BUN/Creatinine Ratio 6.1 L Glucose 99 Lactic Acid 3.9 H* Calcium 9.6 Total Bilirubin 0.45 AST 29 ALT 14 Alkaline Phosphatase 129 Total Protein 7.5 Albumin 4.4 Globulin 3.2 Albumin/Globulin Ratio 1.4 Lipase 23 Radiography Diagnostic Testing: Clinical Impression(s) from Imaging Studies Abdomen/Pelvis CT 08/27/24 11:27 IMPRESSION: 1. Small umbilical hernia containing fat and a short segment of minimally dilated small bowel. Given two transition points associated with the entry and exit from the hernia sac, early closed loop obstruction is possible. Mild upstream intraperitoneal small-bowel dilatation suggests associated early simple mechanical small-bowel obstruction. Recommend surgical consultation. 2. Trace subcutaneous inflammatory changes surrounding the hernia sac are nonspecific; correlate for the clinical diagnosis of bowel strangulation. 3. Mild bladder wall thickening versus underdistention. Correlate for cystitis. 4. Borderline mild splenomegaly. 5. Additional description as above. Reading Location: [id number] Management Discussion w/another healthcare provider: User Experience Developer Discharge Plan Dx/Rx/DC Orders Clinical Impression: Incarcerated umbilical hernia, Leukocytosis, Elevated lactic acid level Disposition Disposition: Acute Care Hospital [facility] Discharge Date/Time: 08/27/24 13:36
--- NOTE | 2024-08-27 11:27 | CT_ITS ---
PROCEDURE: ABDOMEN/PELVIS W IV CONT ONLY, 08/27/2024 REASON FOR EXAM: INCARCERATED HERNIA- UMBILICAL TECHNIQUE: CT abdomen and pelvis was performed with IV contrast. Multiplanar reformats were generated. IV contrast: Isovue-300 VOLUME: 100mL RADIATION DOSE SUMMARY: CTDlvol: 13.30+ 22.12 mGy DLP: 1288.79 mGycm One or more dose reduction techniques were used (e.g., Automated exposure control, adjustment of the mA and/or kV according to patient size, use of iterative reconstruction technique). COMPARISON: None FINDINGS: Lung bases: RIGHT coronary atherosclerosis and/or stent.. Liver: Unremarkable. Spleen: Borderline mild splenomegaly, 13.1 cm coronal.. Gallbladder: Unremarkable. Pancreas: Fatty infiltration.. Adrenals: Unremarkable. Kidneys: Unremarkable. Bowel: Mild proximal small bowel dilatation up to 3.6 cm with transition at the level of a small bowel and fat containing umbilical hernia. The short-segment of bowel within the hernia sac is also mildly fluid dilated to 3.2 cm. Distal small bowel is decompressed. Normal caliber appendix. Lymph nodes: Unremarkable. Vasculature: Mild atherosclerosis.. Peritoneum: Trace nonspecific central mesenteric stranding.. Bladder: Underdistended and suboptimally evaluated. Mild bladder wall thickening versus underdistention. Nonspecific intramural fat deposition within the magdaleno of the bladder. Reproductive Organs: Unremarkable. Body Wall: As above. Trace subcutaneous stranding surrounding the hernia sac. Neck measures 1.3 x 2.2 cm. Bones: Mild multilevel spondylosis mild lumbar levoscoliosis.. CT/Abdomen/Pelvis W IV Cont ONLY IMPRESSION: 1. Small umbilical hernia containing fat and a short segment of minimally dilat ed small bowel. Given two transition points associated with the entry and exit from the hernia sac, early closed loop obstr uction is possible. Mild upstream intraperitoneal small-bowel dilatation suggests associated early simple mechanical small-bowel obstruction. Recommend surgical consultation. 2. Trace subcutaneous inflammatory changes surrounding the hernia sac are nonsp ecific; correlate for the clinical diagnosis of bowel strangulation. 3. Mild bladder wall thickening versus underdistention. Correlate for cystitis . 4. Borderline mild splenomegaly. 5. Additional description as above. Reading Location: [id number]
[2024-08-27 11:38] LABS: Absolute Lymphocyte Count 4.11 X10^3/uL (0.83-4.51); Absolute Neutrophil Count 16.4 X10^3/uL (2.0-7.7); Basophil# 0.15 X10^3/uL; Basophil% 0.7 % (0-1); Eosinophil# 0.08 X10^3/uL; Eosinophils% 0.4 % (0-5); Hematocrit 43.7 % (40-54); Hemoglobin 15.3 g/dL (13.0-16.5); Lymphocyte # 4.11 X10^3/ul (0.83-4.51); Lymphocyte % 18.7 % (19-41); Mean Corpuscular Hgb 29.5 pg (27.0-32.0); Mean Corpuscular Volume 84.2 fL (80-94); Mean Platelet Vol. 9.8 fl (6.2-12.0); Monocyte# 1.17 X10^3/uL; Monocyte% 5.3 % (0-10); NRBC Flagged by Analyzer 0 % (0-5); Neutrophil # 16.41 X10^3/uL (2.7-7.7); Neutrophil % 74.4 % (47-70); Platelet Count 421 K/mm3 (150-450); RBC Distribution Width CV 13.4 % (11.6-14.6); RBC Distribution Width SD 41.2 fl (35.1-43.9); Red Blood Count 5.19 M/mm3 (4.6-6.2)
[2024-08-27 12:34] LABS: Lipase 23 U/L (13-75)
[2024-08-27 12:44] LABS: ALB/GLOB Ratio 1.4 RATIO (0.9-2.4); AST(SGOT) 29 U/L (<=37); Alanine Aminotransfer ALT/SGPT 14 U/L (<=46); Albumin, Serum 4.4 g/dL (3.5-5.0); Alkaline Phosphatase 129 U/L (40-129); Anion Gap 18 (5-15); BUN 6 mg/dL (4-19); BUN/Creat Ratio 6.1 RATIO (10-20); Calcium,Total 9.6 mg/dL (7.6-11.0); Carbon Dioxide 20.9 mmol/L (21.0-32.0); Chloride 100 mmol/L (98-108); Creatinine, Serum 0.96 mg/dL (0.70-1.20); EST Glomerular Filtration Rate 93 (>60); Estimated Creatinine Clearance 105.24 ml/min (50-250); Globulin 3.2 g/dL (2.2-4.2); Glucose 99 mg/dL (70-99); Potassium 3.4 mmol/L (3.3-5.1); Protein, Total 7.5 g/dL (5.9-8.4); Sodium Level 139 mmol/L (133-145); Total Bilirubin 0.45 mg/dL (0.00-1.30)
--- NOTE | 2024-08-27 12:59 | PCM.HP.STD ---
HPI - General HPI Narrative MIKE CARLOS, is a 54 M who presents with painful umbilical hernia. The patient reports that he has had an umbilical hernia for years but something more popped out yesterday during a coughing fit and has been very painful ever since. Patient reports nausea as well as vomiting. He denies fevers or chills. [facility] Medical History Nicotine vapor product user Anxiety and depression Cannabis abuse Autism Schizophrenia Tobacco use History of alcohol abuse Alcohol abuse Cataract (lens) fragments in eye following cataract surgery, bilateral Home Medications ?Medication ?Instructions ?Recorded ?Last Taken ?Type brexpiprazole 2 mg tablet (Rexulti) 2 mg PO DAILY 11/23/21 Unknown History fluoxetine 40 mg capsule 80 cap PO DAILY 11/23/21 Unknown History methylphenidate HCl 20 mg tablet 20 tab PO TID 11/23/21 Unknown History (Ritalin) cholecalciferol (vitamin D3) 50 50 mcg PO DAILY 10/02/22 Unknown History mcg (2,000 unit) capsule (Vitamin D3) omega 8-lcm-txi-fish oil 1,000 mg 1 cap PO BID 10/02/22 Unknown History (120 mg-180 mg) capsule trazodone 100 mg tablet 100 mg PO QHS PRN Sleep 10/02/22 Unknown History zolpidem 10 mg tablet 10 mg PO QPM 10/20/23 Unknown History prazosin 1 mg capsule 3 mg PO QHS 01/01/24 Unknown History tizanidine 4 mg tablet 4 mg PO QHS 01/01/24 Unknown History Allergy/AdvReac Type Severity Reaction Status Date / Time No Known Allergies Allergy Verified 08/27/24 10:21 Family History Mother COPD (chronic obstructive pulmonary disease) Hypertension Diabetes Father Hypertension Alcohol abuse Surgical History History of shoulder surgery History of tonsillectomy and adenoidectomy H/O cataract removal with insertion of prosthetic lens Social History household members: friend(s) Smoking Status: Current some day smoker tobacco type: cigarettes and e-cigarettes Electronic Cigarette Use: with nicotine how long ago did patient quit smoking: Cigarette->vaping several yrs, uses heavy. alcohol intake: current alcohol intake frequency: 3 or more drinks per day details: Reports binging history. substance use type: marijuana Vital Signs Vital Signs Vital Signs: 08/27/24 10:21 08/27/24 11:20 Temperature 98.0 F Temperature Source Oral Pulse Rate 74 65 Respiratory Rate 24 H 18 Blood Pressure 138/75 H 135/73 H Blood Pressure Mean 96 93 Pulse Ox 99 94 Oxygen Delivery Method Room Air Room Air Weight Weight: 235 lb 14.314 oz Body Mass Index (BMI) 33.8 Physical Exam Const oriented x3 and no apparent distress Resp normal respiratory effort GI soft to palpation Palpation: tender Results Lab / Micro Data 08/27/24 10:30 08/27/24 10:30 Labs: Laboratory Results - last 24 hr 08/27/24 10:30: WBC 22.0 H, RBC 5.19, Hgb 15.3, Hct 43.7, MCV 84.2, MCH 29.5, MCHC 35.0, RDW Std Deviation 41.2, RDW Coeff of Danish 13.4, Plt Count 421, MPV 9.8, Immature Gran % (Auto) 0.500, Neut % (Auto) 74.4 H, Lymph % (Auto) 18.7 L, Garrett % (Auto) 5.3, Eos % (Auto) 0.4, Baso % (Auto) 0.7, Absolute Neuts (auto) 16.4 H, Absolute Lymphs (auto) 4.11, Nucleated RBC % 0, Sodium 139, Potassium 3.4, Chloride 100, Carbon Dioxide 20.9 L, Anion Gap 18 H, BUN 6, Creatinine 0.96, Estim Creat Clear Calc 105.24, Est GFR (MDRD) Non-Af 93, BUN/Creatinine Ratio 6.1 L, Glucose 99, Calcium 9.6, Total Bilirubin 0.45, AST 29, ALT 14, Alkaline Phosphatase 129, Total Protein 7.5, Albumin 4.4, Globulin 3.2, Albumin/Globulin Ratio 1.4, Lipase 23 Imaging Radiology Impression Abdomen/Pelvis CT 08/27/24 11:27 IMPRESSION: 1. Small umbilical hernia containing fat and a short segment of minimally dilated small bowel. Given two transition points associated with the entry and exit from the hernia sac, early closed loop obstruction is possible. Mild upstream intraperitoneal small-bowel dilatation suggests associated early simple mechanical small-bowel obstruction. Recommend surgical consultation. 2. Trace subcutaneous inflammatory changes surrounding the hernia sac are nonspecific; correlate for the clinical diagnosis of bowel strangulation. 3. Mild bladder wall thickening versus underdistention. Correlate for cystitis. 4. Borderline mild splenomegaly. 5. Additional description as above. Reading Location: [id number] Assessment & Plan Assessment/Plan (1) Incarcerated umbilical hernia: PLAN: The patient has an incarcerated and possibly strangulated hernia at the umbilicus. It does contain a loop of small bowel on the CT scan which does have a caliber change. Patient is having nausea and vomiting. I discussed the surgery to evaluate the bowel and to repair the hernia. I discussed the possibility of having to open and resect small bowel if it appears ischemic. I discussed the risks of the procedure such as bleeding, infection, injury to underlying bowel, need for bowel resection. Patient understands the risks and is willing to proceed. I also discussed mesh placement in case the case is clean and mesh can be placed safely. Demetrius Hernández MD Pager: [facility] [address] [place] [address], [address] [place] [address] Office:
[2024-08-27 13:12] LABS: Lactic Acid 3.9 mmol/L (0.0-2.0)
--- NOTE | 2024-08-27 13:12 | ED.RN ---
Critical Lactic Acid of 3.[address] De Jesus notified.
--- NOTE | 2024-08-27 13:35 | ED.RN ---
Report called to OR
[2024-08-27] MEDS: Lactated Ringers 1,000 ML 15 ML IV (13:50)
--- NOTE | 2024-08-27 14:06 | PCM.PRE.AN2 ---
ASA Classification* ASA Classification ASA Classification: 2 (Chronic THC user, tobacco use, schizophrenia. We will RSI this patient. ) and E Assessment & Plan Anesthesia* Anesthesia Assessment Anesthesia Assessment: Discussed sedation and/or anesthesia options, risks, benefits, and alternatives with patient/parents/legal guardian/POA. Questions invited. The patient/parents/legal guardian/POA seems to understand and agrees to proceed with anesthesia plan. Reviewed the physical assessment, medical history, allergy history and patient home medications list prior to surgery/procedure/anesthetic and documented any changes. Performed airway and anesthesia risk assessments. Anesthesia Type Anesthesia Type: General History Source History Obtained from:: Patient and Chart Anesthesia Focused Assessment* Temperature: 98 F Pulse Rate: 62 Blood Pressure: 139/77 Respiratory Rate: 16 Pulse Ox: 94 Oxygen Delivery Method: Room Air Airway Assessment Mouth opens: >3 cm Mallampati Score: III Teeth Condition: Intact Neck Range of motion (ROM): Full ROM Focused Labs Anesthesia Preop lab: CBC WBC 22.0 K/mm3 (4.4-11.0) H 08/27/24 10:30 08/27/24 RBC 5.19 M/mm3 (4.6-6.2) 08/27/24 10:30 08/27/24 Hgb 15.3 g/dL (13.0-16.5) 08/27/24 10:30 08/27/24 Hct 43.7 % (40-54) 08/27/24 10:30 08/27/24 Plt Count 421 K/mm3 (150-450) 08/27/24 10:30 08/27/24 CHEMISTRY Potassium 3.4 mmol/L (3.3-5.1) 08/27/24 10:30 08/27/24 Sodium 139 mmol/L (133-145) 08/27/24 10:30 08/27/24 Magnesium 2.0 mg/dL (1.6-2.6) 11/06/23 15:06 11/06/23 Phosphorus 3.9 mg/dL (2.5-4.9) 04/19/23 15:02 04/19/23 BUN 6 mg/dL (4-19) 08/27/24 10:30 08/27/24 Creatinine 0.96 mg/dL (0.70-1.20) 08/27/24 10:30 08/27/24 Glucose 99 mg/dL (70-99) 08/27/24 10:30 08/27/24 POC Glucose 152 mg/dL (74-106) H 04/19/23 15:01 04/19/23 TSH 0.94 uIU/mL (0.358-3.74) 11/06/23 15:06 11/06/23 COAG Pre-Assessment Diagnosis/Proposed Procedure Planned Operative Procedure(s): Incarcerated hernia repair; see surgical notes Anesthesia History Anesthesia History - pharmacy specialist: Anesthesia History - pharmacy specialist Hx Hospitalization Any Problems With Anesthesia Cholinesterase deficiency You/Your Family Experience fever (hyperthermia) with Relationship Recent Exposure to Contagious Disease Does patient have nerve stimulator Patient instructed to have device shut off --Does patient have Pacemaker or ICD? When Was Last Pacemaker Check QUESTION #4 FULL TEXT: You/Your Family Experience fever (hyperthermia) with Anesthesia Last Oral Intake Last Oral intake: Last Oral Intake NPO since Meds taken in AM with sips of water? Meds patient instructed to take am of surgery PONV PONV - pharmacy specialist: PONV - pharmacy specialist Female HX of Motion Sickness HX of N/V After Surgery Non-Smoker Duration of Surgery greater than 60 minutes Number of Risk Factors PONV Score Height & Weight Height & Weight: Anesthesia: Height & Weight Height 5 ft 10 in 08/27/24 10:21 Weight: 107 kg 08/27/24 10:21 Body Mass Index (BMI) 33.8 08/27/24 10:21 Respiratory Assessment Respiratory Assessment - pharmacy specialist: Respiratory Tract Infection Hx - pharmacy specialist Hx Respiratory Tract Infection STOP Sleep Apnea STOP Sleep Apnea - pharmacy specialist: STOP Sleep Apnea - pharmacy specialist Hx Hypertension No 11/14/23 14:49 Hx Sleep Apnea No 11/14/23 14:49 CPAP BIPAP Do you snore loudly (louder than talking or can be heard Do you often feel tired/ fatigued/ sleepy during daytime? Has anyone observed you stop breathing during sleep? STOP Results QUESTION #5 FULL TEXT : Do you snore loudly (louder than talking or can be heard through closed doors)? 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 Specify any problems Hx of Preganancy in last 3 Months Nurse Filling Out Transfusion & Questions: Date: Time: Patient unable to answer at this time (ie. confused, unrespo /Reproduction History /Reproductive History - pharmacy specialist: /Reproductive Hx- pharmacy specialist Hx Now Gestational Age (in weeks): EDC: Hx Hx Para Hx Section SAB Active Medications Active Medications: Current Medications Generic Name Dose Route Start Last Admin Trade Name Freq PRN Reason Stop Dose Admin Lactated Ringer's 1,000 mls @ 15 mls/hr 08/27/24 14:00 08/27/24 13:50 IV 15 mls/hr .Q48H CAROLA Administration PFSH Medical History Nicotine vapor product user Anxiety and depression Cannabis abuse Autism Schizophrenia Tobacco use History of alcohol abuse Alcohol abuse Cataract (lens) fragments in eye following cataract surgery, bilateral Home Medications ?Medication ?Instructions ?Recorded ?Last Taken ?Type brexpiprazole 2 mg tablet (Rexulti) 2 mg PO DAILY 11/23/21 08/26/24 History fluoxetine 40 mg capsule 80 cap PO DAILY 11/23/21 08/26/24 History methylphenidate HCl 20 mg tablet 20 tab PO TID 11/23/21 08/26/24 History (Ritalin) cholecalciferol (vitamin D3) 50 50 mcg PO DAILY 10/02/22 08/26/24 History mcg (2,000 unit) capsule (Vitamin D3) omega 6-uwn-kip-fish oil 1,000 mg 1 cap PO BID 10/02/22 08/26/24 History (120 mg-180 mg) capsule zolpidem 10 mg tablet 10 mg PO QPM 10/20/23 08/26/24 History prazosin 1 mg capsule 3 mg PO QHS 01/01/24 08/26/24 History tizanidine 4 mg tablet 4 mg PO QHS 01/01/24 08/26/24 History Allergy/AdvReac Type Severity Reaction Status Date / Time No Known Allergies Allergy Verified 08/27/24 10:21 Family History Mother COPD (chronic obstructive pulmonary disease) Hypertension Diabetes Father Hypertension Alcohol abuse Surgical History History of shoulder surgery History of tonsillectomy and adenoidectomy H/O cataract removal with insertion of prosthetic lens Social History household members: friend(s) Smoking Status: Current some day smoker tobacco type: cigarettes and e-cigarettes Electronic Cigarette Use: with nicotine how long ago did patient quit smoking: Cigarette->vaping several yrs, uses heavy. alcohol intake: current alcohol intake frequency: 3 or more drinks per day details: Reports binging history. substance use type: marijuana Review of Systems (Anesthesia) ROS Narrative System reviewed and no additional complaints, except as documented. Physical Exam Const alert, oriented x3 and average body habitus Resp normal respiratory effort, normal air movement and clear to auscultation bilaterally Cardio regular rate, regular rhythm, no murmurs and diaphoretic
--- NOTE | 2024-08-27 15:00 | COL_PTH ---
PATIENT: MIKE CARLOS LOC: MS3 U#:[id number] AGE/SX: 54/M ROOM: PA319 RE08/27/[address]: Dr. Demetrius Hernández MD : 1970 BED: 1 DIS: 08/29/2024 SPEC #: [id number] RECD: 08/27/24 18:19 STATUS: NICK ASH #: [id number] CHRIS: 08/27/24 15:[address]: Demetrius Hernández DEPT: SURGICAL PATHOLOGY RECD BY: Tae Up ENTERED: 08/28/24 08:13 SP TYPE: COLON OTHR DR: Rosangela [facility] Tissues: A - Colon, NOS B - HERNIA Procedures: Surgery Specimen Level II Surgery Specimen Level V HEADER OPERATION: Incarcerated umbilical hernia repair, bowel resection PRE-OP DIAGNOSIS: Small umbilical hernia TISSUE SUBMITTED: A- Small bowel segment, B- Umbilical hernia sac MICROSCOPIC DIAGNOSIS A. Small bowel, incarcerated umbilical hernia, partial bowel resection: * Focal mucosal necrosis, vascular congestion, and widespread submucosal edema and acute hemorrhage, consistent with ischemia. * Viable end resection margins. B. Umbilical hernia sac, incarcerated umbilical hernia, repair: * Fibroadipose tissue partially covered by an attenuated mesothelium, consistent with hernia sac. MICROSCOPIC DESCRIPTION Slides are reviewed. GROSS DESCRIPTION A. Received in formalin in a container labeled with the patient's name, date of , and small bowel segment is a partially opened, unoriented segment of small bowel with two stapled margins. The segment is 10.5 cm in length by 2.2 cm in diameter with attached 2.5 cm thickness dusky mesenteric fat. The serosa is notable for a 6.0 cm in length area of purple-brown, dusky discoloration that comes to within 1.5 cm of the first stapled margin and 6.0 cm of the second stapled margin. The remaining serosa is miller-pink, smooth and glistening. The segment is opened to reveal that the mucosa is dusky miller-brown and edematous deep to the discolored serosa. The remaining mucosa is smith-pink, velvety, with typical transverse folds and an average wall thickness of 0.6 cm. No distinct perforation or mass-like lesion is grossly recognized. Received in the same container is a previously disrupted fragment of smith-brown mucosa measuring 4.0 x 3.7 x 1.5 cm. Sectioning reveals an abundance of embedded magali with an average wall thickness of 0.6 cm. Upper Marker sections: A1. First stapled margin, en faceA2. Second stapled margin, en faceA3-4. Full-thickness sections with dusky mucosa to typical mucosaA5. Unremarkable mucosa with separate disrupted fragment (full-thickness section is not obtained due to embedded magali) B. Received in formalin in a container labeled with the patient's name, date of , and umbilical hernia sac is a 7.0 x 4.0 x 0.9 cm fragment of pink-miller, membranous soft tissue with attached smith-yellow adipose tissue. Sectioning reveals miller-brown, somewhat dusky cut surfaces. No markedly hemorrhagic areas are identified. Upper Marker sections are submitted in B1. [facility] 08-28-2024 CPT:78951,67504
[2024-08-27] MEDS: Cefotetan 2 GM in 0.9% Normal Saline (100mL MB+) 100 ML IV (15:15)
[2024-08-27 15:51] LABS: Reflex Lactate? Y
--- NOTE | 2024-08-27 16:11 | OP.PCM_ITS ---
Operative Report (Standard) Operative Information Date of Procedure: 08/27/24 Pre-Operative Diagnosis: Incarcerated umbilical hernia Post-Operative Diagnosis: Incarcerated umbilical hernia with small bowel necrosis Surgery/Procedure Performed: Umbilical hernia repair with small bowel resection billet examiner: Yes Migration Agent: Camilo Mustafa Tasks completed by assistant general manager: Opening and Closing Type of Anesthesia: General/Regional RN Documented Start/Stop Times: Operation Date: 08/27/24 15:00 Case Time Into Pre-Op 08/27/24 13:39 Out of Pre-Op 08/27/24 15:13 Anesthesia Start 08/27/24 15:15 Into Room 08/27/24 15:15 Procedure Start 08/27/24 15:31 Procedure Start Time: 15:31 Procedure Stop Time: 16:20 Select all DRAINS/GRAFTS/IMPLANTS that apply: None Estimated Blood Loss: 10 Specimen collected: Yes Description of specimen(s) removed: Small bowel segment and hernia sac Description of surgery: Patient was brought back to the operating room and general anesthesia was induced. The abdomen was prepped and draped in usual sterile fashion. A curvilinear incision was marked adjacent to the umbilicus and then incised. The hernia sac was readily encountered. It was removed from the umbilical stalk. It was circumferentially dissected using blunt dissection. Next the hernia sac was opened. The bowel that was within it appeared dusky. The hernia sac was opened completely and then the fascia was opened superiorly and inferiorly to allow for the bowel to be delivered through the incision. It was inspected and the bowel that was stuck in the hernia appeared dusky and did not have any peristalsis. We decided to resect this segment. Using a BRANDON stapler the small bowel was divided proximally and distally to the ischemic segment. LigaSure impact was used to take down the mesentery. The corner was taken off of each staple line and a BRANDON stapler was used to anastomose the small bowel to the small bowel in a [id number] functional end to end fashion. The staple line was inspected and the enterostomy was closed with a TX 60 stapler. A crotch suture was placed with 3-0 silk. Several silk sutures were placed on the staple line to maintain hemostasis. Next once there was good hemostasis the bowel was returned to the abdomen. The hernia sac was taken off of the umbilical stalk and sent for pathology. Next the fascia was closed using interrupted [id number] 0 PDS sutures. The subcutaneous tissue was irrigated and suctioned dry and closed with interrupted 3-0 Vicryl sutures and interrupted 4-0 Monocryl sutures. Steri-Strips and bandages were applied. Local anesthesia was injected. Patient was taken to PACU in stable condition and tolerated the procedure well. Surgical Findings: Incarcerated umbilical hernia with strangulation Complications Complications: No Admit VTE Documentation VTE Mechan Device Prophylaxis: SCD's
[2024-08-27] MEDS: Bupivacaine Mpf 0.5% 30 ML VIAL (16:16)
--- NOTE | 2024-08-27 16:39 | PCM.POST.ANE ---
Anesthesia: Postop Eval I Current Vital Signs Temperature: 97 F Pulse Rate: 65 Blood Pressure: 128/57 Respiratory Rate: 20 Pulse Ox: 94 Assessment Airway patent: Yes Spontaneous unlabored respirations: Yes nausea: No Vomiting: No Anesthesia Complication: No Fluid Hydration Crystalloid volume administer (ml): 1,200 Total IV fluid infused: 1,200 Progress Note Anesthesia document: Postop Eval 1 completed: Yes
[2024-08-27 16:56] LABS: Bedside Glucose 130 mg/dL (74-106)
--- NOTE | 2024-08-27 17:00 | POSTOPAN2_ITS ---
Anesthesia Postop Eval I Sum Postop Eval Completion status Anesthesia document: Postop Eval 1 completed: Yes Anesthesia Postop Eval I Summary Anesthesia Postop Eval I Summary: Anesthesia Postop Eval I: Assessment Summary Airway patent Yes 08/27/24 16:39 TRIM [email or web address] Spontaneous unlabored Yes 08/27/24 16:39 TRIM [email or web address] respirations Mental status nausea No 08/27/24 16:39 TRIM [email or web address].CSIR Vomiting No 08/27/24 16:39 TRIM [email or web address] Anesthesia Postop Eval I: Fluid Summary Crystalloid volume administer 1,200 08/27/24 16:39 TRIM [email or web address] (ml) Colloids volume administered ( ml) Blood Product volume administered (ml) Total IV fluid infused 1,200 08/27/24 16:39 TRIM [email or web address] Anesthesia Postop Eval I: Summary Notes Anesthesia Complication No 08/27/24 16:39 TRIM [email or web address] Anesthesia Complication Comment: Post-operative progress note Anesthesia: Postop Eval II Evaluation Mental status: Awake Pain Level: 0 nausea: No Vomiting: No Complications Anesthesia Complication: No
--- NOTE | 2024-08-27 17:00 | PCM.POSTANE2 ---
Anesthesia Postop Eval I Sum Postop Eval Completion status Anesthesia document: Postop Eval 1 completed: Yes Anesthesia Postop Eval I Summary Anesthesia Postop Eval I Summary: Anesthesia Postop Eval I: Assessment Summary Airway patent Yes 08/27/24 16:39 [email or web address] [email or web address] Spontaneous unlabored Yes 08/27/24 16:39 HATCHERY MAN.CSIR respirations Mental status nausea No 08/27/24 16:39 HATCHERY MAN.CSIR Vomiting No 08/27/24 16:39 HATCHERY MAN.CSIR Anesthesia Postop Eval I: Fluid Summary Crystalloid volume administer 1,200 08/27/24 16:39 HATCHERY MAN.CSIR (ml) Colloids volume administered ( ml) Blood Product volume administered (ml) Total IV fluid infused 1,200 08/27/24 16:39 HATCHERY [email or web address] Anesthesia Postop Eval I: Summary Notes Anesthesia Complication No 08/27/24 16:39 HATCHERY MAN.CSIR Anesthesia Complication Comment: Post-operative progress note Anesthesia: Postop Eval II Evaluation Mental status: Awake Pain Level: 0 nausea: No Vomiting: No Complications Anesthesia Complication: No
[2024-08-27 17:04] LABS: Lactic Acid 1.4 mmol/L (0.0-2.0)
[2024-08-27] MEDS: 0.9% Normal Saline (1000mL) 1,000 ML 60 ML IV (18:13)
[2024-08-27] MEDS: Morphine 2 MG/ML Syringe IV ×2 (20:25→22:58)
[2024-08-28 02:05] VITALS: BP 135/75; PULSE 64; RESP 15; TEMP 36.4
[2024-08-28] MEDS: Ketorolac 15 MG/ML Vial IV ×2 (02:17→11:38)
[2024-08-28] MEDS: Morphine 2 MG/ML Syringe IV ×3 (05:44→20:02)
--- NOTE | 2024-08-28 06:46 | PCM.PN.SRG ---
Subjective Subjective Patient is comfortable. He is not passing any flatus yet. Denies any nausea or vomiting. Objective Data Objective Data Vital Signs: Vital Signs Temp Pulse Resp BP Pulse Ox O2 Del Method O2 Flow Rate 97.6 F L 64 15 135/75 H 95 Room Air 2 08/28/24 02:05 08/28/24 02:05 08/28/24 02:05 08/28/24 02:05 08/27/24 21:56 08/28/24 02:46 08/27/24 17:15 Oxygen Flow Rate (L/min) 2 Oxygen Delivery Method Room Air Weight: 235 lb 14.314 oz Body Mass Index (BMI) 33.8 Intake & Output: Intake and Output for Last 24 Hours 08/26/24 08/27/24 08/28/24 23:59 23:59 23:59 Intake Total 3100 / 3100 Output Total 400 / 400 300 / 300 Balance 2700 / 2700 -300 / -300 Lab / Micro Data 08/27/24 10:30 08/27/24 10:30 Labs: Laboratory Results - last 24 hr 08/27/24 10:30: WBC 22.0 H, RBC 5.19, Hgb 15.3, Hct 43.7, MCV 84.2, MCH 29.5, MCHC 35.0, RDW Std Deviation 41.2, RDW Coeff of Danish 13.4, Plt Count 421, MPV 9.8, Immature Gran % (Auto) 0.500, Neut % (Auto) 74.4 H, Lymph % (Auto) 18.7 L, [place] % (Auto) 5.3, Eos % (Auto) 0.4, Baso % (Auto) 0.7, Absolute Neuts (auto) 16.4 H, Absolute Lymphs (auto) 4.11, Nucleated RBC % 0, Sodium 139, Potassium 3.4, Chloride 100, Carbon Dioxide 20.9 L, Anion Gap 18 H, BUN 6, Creatinine 0.96, Estim Creat Clear Calc 105.24, Est GFR (MDRD) Non-Af 93, BUN/Creatinine Ratio 6.1 L, Glucose 99, Calcium 9.6, Total Bilirubin 0.45, AST 29, ALT 14, Alkaline Phosphatase 129, Total Protein 7.5, Albumin 4.4, Globulin 3.2, Albumin/Globulin Ratio 1.4, Lipase 23 08/27/24 11:45: Lactic Acid 3.9 H* 08/27/24 16:10: Lactic Acid 1.4 08/27/24 16:29: POC Glucose 130 H Radiography Diagnostic Testing: Radiology Impression Abdomen/Pelvis CT 08/27/24 11:27 IMPRESSION: 1. Small umbilical hernia containing fat and a short segment of minimally dilated small bowel. Given two transition points associated with the entry and exit from the hernia sac, early closed loop obstruction is possible. Mild upstream intraperitoneal small-bowel dilatation suggests associated early simple mechanical small-bowel obstruction. Recommend surgical consultation. 2. Trace subcutaneous inflammatory changes surrounding the hernia sac are nonspecific; correlate for the clinical diagnosis of bowel strangulation. 3. Mild bladder wall thickening versus underdistention. Correlate for cystitis. 4. Borderline mild splenomegaly. 5. Additional description as above. Reading Location: [facility] Physical Exam Const oriented x3 and no apparent distress Resp normal respiratory effort GI soft to palpation Palpation: tender Assessment & Plan Assessment/Plan (1) Incarcerated umbilical hernia: PLAN: Patient is postoperative day 1 from incarcerated umbilical hernia with bowel resection. He is still not passing any flatus. Continue n.p.o. with sips and chips. Await bowel function. Labs pending. Demetrius Hernández MD Pager: [facility] [address] [place] [address], [address] [place] [address] Office:
[2024-08-28 07:00] LABS: Absolute Lymphocyte Count 1.38 X10^3/uL (0.83-4.51); Absolute Neutrophil Count 16.8 X10^3/uL (2.0-7.7); Basophil# 0.03 X10^3/uL; Basophil% 0.2 % (0-1); Hematocrit 35.9 % (40-54); Hemoglobin 12.4 g/dL (13.0-16.5); Lymphocyte # 1.38 X10^3/ul (0.83-4.51); Lymphocyte % 7.2 % (19-41); Mean Corp Hgb Conc 34.5 g/dL (32-36); Mean Corpuscular Hgb 29.8 pg (27.0-32.0); Mean Corpuscular Volume 86.3 fL (80-94); Mean Platelet Vol. 9.4 fl (6.2-12.0); Monocyte# 0.82 X10^3/uL; Monocyte% 4.3 % (0-10); NRBC Flagged by Analyzer 0 % (0-5); Neutrophil # 16.84 X10^3/uL (2.7-7.7); Neutrophil % 87.7 % (47-70); Platelet Count 289 K/mm3 (150-450); RBC Distribution Width CV 13.7 % (11.6-14.6); RBC Distribution Width SD 42.5 fl (35.1-43.9); Red Blood Count 4.16 M/mm3 (4.6-6.2); White Blood Count 19.2 K/mm3 (4.4-11.0)
[2024-08-28 07:47] LABS: Anion Gap 11 (5-15); BUN 8 mg/dL (4-19); Calcium,Total 8.6 mg/dL (7.6-11.0); Carbon Dioxide 22.4 mmol/L (21.0-32.0); Chloride 106 mmol/L (98-108); Creatinine, Serum 0.71 mg/dL (0.70-1.20); EST Glomerular Filtration Rate 108 (>60); Glucose 148 mg/dL (70-99); Sodium Level 139 mmol/L (133-145)
[2024-08-28 08:13] VITALS: RESP 17; O2SAT 97
--- NOTE | 2024-08-28 08:24 | NURSING ---
Patient states that he has passed gas and did not mention it to the MD when he was in for morning rounds. Message sent to MD notifying him of patient statement. MD messaged back to keep patient sips and chips. Patient notified, patient seemed very disgruntled and agitated about this. States I was told that if I was to pass gas that I could have my diet advanced. Reassured patient that it is better to let his GI system rest since he is only 24 hours post resection of bowel. Patient states whatever I guess. Denies any further needs or questions.
[2024-08-28] MEDS: 0.9% Normal Saline (1000mL) 1,000 ML 60 ML IV (09:18)
[2024-08-28] MEDS: 0.9% Saline Lock 10 ML Syringe IV ×4 (09:30→14:52)
[2024-08-28 10:00] VITALS: BP 140/72; PULSE 70; RESP 16; TEMP 36.3; O2SAT 93
--- NOTE | 2024-08-28 11:25 | CASEMGMT ---
CHRISTIANO PHILLIPS Assessment: RN ALAN to room to meet with patient for initial transition planning/care coordination assessment.?RN ALAN introduced self and role at [facility], pt alert and oriented, voices understanding and is agreeable to participating in assessment.? Care providers, pharmacy,?and demographics verified. ? Strata: 1 PCP: [facility]angela [facility] ([facility]) Specialists: Psychiatrist @ [facility] Preferred Pharmacy: [facility] Retail pharmacy @ discharge. Otherwise, goes to [facility]. Pt would like [id number]. MS3 CHRISTIANO PHILLIPS, Hillary, made aware. Insurance: [employer] Prescription Benefit:?yes LNOK: Pt has no children and parents are . He has one sibling (brother) but states he is not still in contact with him and they have not spoken for about 2 years. He does have an aunt Maci. His sig other is Jennifer Serrano. HCPOA/LW: Pt would like to complete POA, stating he would like to name his aunt Maci as his agent and then Jennifer, his sig other, as 1st alternative. Bronwyn BADILLO, made aware. Pt was made aware if SW unable to complete this while he is @ [facility], this can be done w/SW @ [facility] as an OP. He voices understanding. Living Arrangements: Pt lives alone in a one-story apartment. Pt states he is independent with ADLs and IADLs and manages his own medications and appts. Transportation: pt does not drive. States his S.O. provides transportation or he uses his e-bike or takes a cab. He would like to use [facility] van @ ma, stating Jennifer is difficult to reach & doesn't get around well. DME: Denies having any DME and denies needs. HHC/SNF: No hx of either. Denies needs and no needs identified. ETOH/Smoking: Pt states he smokes and drinks on occasion, stating once every couple weeks. Plan: Home Chema TEJADA RN, CM
[2024-08-28] MEDS: Morphine 4 MG/ML Syringe IV ×4 (12:38→22:27)
--- NOTE | 2024-08-28 14:34 | CASEMGMT ---
Social Work SW met with pt to discuss advance directives. Pt would like to complete a health care power of disability attorney, but not a living will. Pt will collect phone numbers and addresses of designees today and SW will follow up tomorrow to assist with completion. SIDDHARTHA Craig
[2024-08-28 17:14] VITALS: BP 122/68; PULSE 60; RESP 12; TEMP 36.6; O2SAT 93
[2024-08-28 19:50] VITALS: BP 146/75; PULSE 57; RESP 15; TEMP 36.8; O2SAT 96
[2024-08-28 22:13] VITALS: BP 149/76; PULSE 58; RESP 15; TEMP 36.6; O2SAT 98
[2024-08-29] MEDS: Ketorolac 15 MG/ML Vial IV (00:30)
[2024-08-29 02:25] VITALS: BP 136/72; PULSE 53; RESP 15; TEMP 36.6; O2SAT 96
[2024-08-29] MEDS: 0.9% Normal Saline (1000mL) 1,000 ML 60 ML IV (02:29)
[2024-08-29 02:39] VITALS: PULSE 50; O2SAT 96
[2024-08-29 05:47] VITALS: BP 150/86; PULSE 60; RESP 15; TEMP 36.6; O2SAT 97
[2024-08-29] MEDS: Ondansetron 4 MG/2 ML Vial IV (05:51)
[2024-08-29] MEDS: Morphine 4 MG/ML Syringe IV (05:52)
[2024-08-29 07:07] LABS: Absolute Lymphocyte Count 2.91 X10^3/uL (0.83-4.51); Absolute Neutrophil Count 7.9 X10^3/uL (2.0-7.7); Basophil# 0.07 X10^3/uL; Basophil% 0.6 % (0-1); Eosinophil# 0.11 X10^3/uL; Eosinophils% 0.9 % (0-5); Hematocrit 35.5 % (40-54); Hemoglobin 11.8 g/dL (13.0-16.5); Lymphocyte # 2.91 X10^3/ul (0.83-4.51); Lymphocyte % 24.6 % (19-41); Mean Corp Hgb Conc 33.2 g/dL (32-36); Mean Corpuscular Hgb 29.6 pg (27.0-32.0); Mean Platelet Vol. 9.7 fl (6.2-12.0); Monocyte# 0.78 X10^3/uL; Monocyte% 6.6 % (0-10); NRBC Flagged by Analyzer 0 % (0-5); Neutrophil # 7.93 X10^3/uL (2.7-7.7); Platelet Count 274 K/mm3 (150-450); RBC Distribution Width CV 13.6 % (11.6-14.6); RBC Distribution Width SD 44.5 fl (35.1-43.9); Red Blood Count 3.99 M/mm3 (4.6-6.2); White Blood Count 11.8 K/mm3 (4.4-11.0)
[2024-08-29 07:45] LABS: Anion Gap 9 (5-15); BUN 9 mg/dL (4-19); BUN/Creat Ratio 13.1 RATIO (10-20); Calcium,Total 8.5 mg/dL (7.6-11.0); Carbon Dioxide 24.3 mmol/L (21.0-32.0); Chloride 107 mmol/L (98-108); Creatinine, Serum 0.71 mg/dL (0.70-1.20); EST Glomerular Filtration Rate 108 (>60); Glucose 89 mg/dL (70-99); Potassium 3.4 mmol/L (3.3-5.1); Sodium Level 140 mmol/L (133-145)
[2024-08-29 08:44] VITALS: BP 138/70; PULSE 62; RESP 16; TEMP 36.7; O2SAT 97
[2024-08-29] MEDS: Acetaminophen 325 MG Tablet 650 MG PO ×2 (08:52→12:57)
[2024-08-29] MEDS: oxyCODONE 5 MG Tablet PO ×2 (08:53→12:57)
[2024-08-29] MEDS: Fluoxetine HCl 40 MG CAPSULE 80 MG PO (08:53)
--- NOTE | 2024-08-29 09:32 | PCM.PN.SRG ---
Subjective Subjective Patient was very agitated this morning. He is concerned that he did not get his psych meds yesterday. He would like to have a diet and go home today. Objective Data Objective Data Vital Signs: Vital Signs Temp Pulse Resp BP Pulse Ox O2 Del Method O2 Flow Rate 98.0 F 62 16 138/70 H 97 Room Air 2 08/29/24 08:44 08/29/24 08:44 08/29/24 08:44 08/29/24 08:44 08/29/24 08:44 08/29/24 08:44 08/27/24 17:15 Oxygen Flow Rate (L/min) 2 Oxygen Delivery Method Room Air Weight: 235 lb 14.314 oz Body Mass Index (BMI) 33.8 Intake & Output: Intake and Output for Last 24 Hours 08/27/24 08/28/24 08/29/24 23:59 23:59 23:59 Intake Total 3100 / 3100 1197 / 1197 1000 / 1000 Output Total 400 / 400 450 / 450 Balance 2700 / 2700 747 / 747 1000 / 1000 Lab / Micro Data 08/29/24 05:57 08/29/24 05:57 Labs: Laboratory Results - last 24 hr 08/29/24 05:57: WBC 11.8 H, RBC 3.99 L, Hgb 11.8 L, Hct 35.5 L, MCV 89.0, MCH 29.6, MCHC 33.2, RDW Std Deviation 44.5 H, RDW Coeff of Danish 13.6, Plt Count 274, MPV 9.7, Immature Gran % (Auto) 0.300, Neut % (Auto) 67.0, Lymph % (Auto) 24.6, [place] % (Auto) 6.6, Eos % (Auto) 0.9, Baso % (Auto) 0.6, Absolute Neuts (auto) 7.9 H, Absolute Lymphs (auto) 2.91, Nucleated RBC % 0, Sodium 140, Potassium 3.4, Chloride 107, Carbon Dioxide 24.3, Anion Gap 9, BUN 9, Creatinine 0.71, Estim Creat Clear Calc 142.30, Est GFR (MDRD) Non-Af 108, BUN/Creatinine Ratio 13.1, Glucose 89, Calcium 8.5 Physical Exam Const oriented x3 and no apparent distress Cardio regular rate and regular rhythm GI soft to palpation Palpation: tender Assessment & Plan Assessment/Plan (1) Incarcerated umbilical hernia: PLAN: Patient is postoperative day 2 from a small bowel resection for an incarcerated umbilical hernia. I will advance him to clear liquids today and advance as tolerated. Demetrius Hernández MD Pager: [facility] [address] [place] [address] [address] [place] [address] Office:
--- NOTE | 2024-08-29 09:34 | DS.PCM_ITS ---
Providers Date of Admission: 08/27/24 Primary Care Physician: Rosangela [facility] Reason For Visit: INCARCERATED HERNIA Diagnosis Discharge Diagnosis (1) Incarcerated umbilical hernia: Status: Acute Code(s): K42.0 - Umbilical hernia with obstruction, without gangrene Plan: Patient is postoperative day 2 from a small bowel resection for an incarcerated umbilical hernia. I will advance him to clear liquids today and advance as tolerated. Demetrius Hernández MD Pager: [facility] [address] [place] [address] [address] [place] [address] Office: Medications at Discharge Home Medications brexpiprazole 2 mg tablet (Rexulti) 2 mg PO DAILY 11/23/21 fluoxetine 40 mg capsule 80 cap PO DAILY 11/23/21 methylphenidate HCl 20 mg tablet (Ritalin) 20 tab PO TID 11/23/21 cholecalciferol (vitamin D3) 50 mcg (2,000 unit) capsule (Vitamin D3) 50 mcg PO DAILY 10/02/22 omega 3-lxj-xco-fish oil 1,000 mg (120 mg-180 mg) capsule 1 cap PO BID 10/02/22 zolpidem 10 mg tablet 10 mg PO QPM 10/20/23 prazosin 1 mg capsule 3 mg PO QHS 01/01/24 tizanidine 4 mg tablet 4 mg PO QHS 01/01/24 oxycodone 5 mg tablet 5 - 10 mg (1 - 2 x 5 mg) PO Q4H PRN PRN Pain Score 4-10 5 days #20 tabs 08/29/24 Hospital Course Summary of Care Provided Hospital Course: Patient was admitted and taken for immediate surgery for an incarcerated umbilical hernia containing small bowel. He was found to have ischemia of the small bowel and it was resected. He had anastomosis. The next day he was kept NPO. The following day he was started on clear liquids and advance as tolerated and once tolerating a diet he will be discharged home. Weight / BMI Weight Weight: 235 lb 14.314 oz Body Mass Index (BMI) 33.8 ABG / Lab / Microbiology Data 08/29/24 05:57 08/29/24 05:57 Laboratory: Laboratory Results - last 24 hr 05/09/25 05:57: WBC 11.8 H, RBC 3.99 L, Hgb 11.8 L, Hct 35.5 L, MCV 89.0, MCH 29.6, MCHC 33.2, RDW Std Deviation 44.5 H, RDW Coeff of Danish 13.6, Plt Count 274, MPV 9.7, Immature Gran % (Auto) 0.300, Neut % (Auto) 67.0, Lymph % (Auto) 24.6, [place] % (Auto) 6.6, Eos % (Auto) 0.9, Baso % (Auto) 0.6, Absolute Neuts (auto) 7.9 H, Absolute Lymphs (auto) 2.91, Nucleated RBC % 0, Sodium 140, Potassium 3.4, Chloride 107, Carbon Dioxide 24.3, Anion Gap 9, BUN 9, Creatinine 0.71, Estim Creat Clear Calc 142.30, Est GFR (MDRD) Non-Af 108, BUN/Creatinine Ratio 13.1, Glucose 89, Calcium 8.5 D/C Instructions Discharge Diet: Light diet - advance as tolerated Discharge Activity: May Not Drive (for 2-3 days and while on narcotics) and May Shower Lifting Restrictions: 15 lbs for 6 weeks Call your doctor if your incision/area has: Continuous Slow Oozing, Sudden Increased Bleeding, Increased Pain/ Swelling, Increased Redness, Foul Smelling Discharge and Swelling at the incision site Call your doctor if you observe: Fever of 101 or Higher Remove Dressing in: 2 days (Remove steri strips in 1 week) Cleanse incision/area with: Soap & Water DC O2, CPAP, BIPAP Needs Home O2 Discharge instructions: No Please Follow Up With: Demetrius Hernández MD When: Please call to schedule 1 week follow up appointment. [phone] Meaningful Use Info Meaningful Use Meaningful Use Diagnoses (Choose all that apply): None applicable Ischemic Stroke Statin Dosing Therapy Reference: STATIN DOSE THERAPY REFERENCE: * Patients > 75 years receive moderate or high dose statin therapy. * Patients 75 years or YOUNGER should receive HIGH intensity statin dose unless contraindicated. You will be required to document reason for non-treatment if statin daily dose does not meet guidelines. HIGH DOSE STATIN THERAPY DAILY Atorvastatin > than or = to 40 mg Rosuvastatin > than or = to 20 mg Amlodipine + Atorvastatin > than or = to 2.5/40 mg Ezetimibe + Simvastatin 10/80 mg Simvastatin 80mg Discharge Plan Admission Admit Date/Time: 08/27/24 16:18 Attending Provider: Demetrius Hernández [facility] Orders/Prescriptions Prescriptions: New oxycodone 5 mg Tablet 5 - 10 mg PO Q4H PRN PRN (Reason: Pain Score 4-10) 5 Days Qty: 20 0RF Continued tizanidine 4 mg tablet 4 mg PO QHS fluoxetine 40 mg capsule 80 cap PO DAILY Patient Comments: TAKE 2 CAPSULES BY MOUTH ONCE DAILY methylphenidate HCl [Ritalin] 20 mg tablet 20 tab PO TID Patient Comments: TAKE 1 TABLET THREE TIMES DAILY Rexulti 2 mg tablet 2 mg PO DAILY Patient Comments: take one tablet by mouth every morning prazosin 1 mg capsule 3 mg PO QHS Patient Comments: take 1 capsule daily at 2 pm and 2 capsules by mouth at bedtime cholecalciferol (vitamin D3) [Vitamin D3] 50 mcg (2,000 unit) Capsule 50 mcg PO DAILY omega 7-yrt-jgh-fish oil 1,000 mg (120 mg-180 mg) capsule 1 cap PO BID Patient Comments: s/o unsure if pt. was getting in fdc zolpidem 10 mg tablet 10 mg PO QPM [facility] - Disposition Disposition (needs filled in before D/C Order can be placed): Home, Self Care
--- NOTE | 2024-08-29 10:54 | CASEMGMT ---
Social Work- SW attempted to meet with pt to complete directives; pt reports that he still does not have addresses and is unable to complete at this time. SW remains available to follow. SIDDHARTHA Arrington
--- NOTE | 2024-08-29 14:39 | PHA.DC_ITS ---
Pharmacy [facility] has performed discharge medication reconciliation and counseling for this patient. The patient's discharge medication list was reviewed for discrepancies and discrepancies were resolved. The patient was counseled on the following discharge medications and changes in medications for homegoing were reviewed. The Reason for Use, instructions for use, and potential side effects were reviewed for all new medications. The patient's questions regarding all of their medications were answered. 1. Oxycodone 5-10 mg PO Q4H PRN pain 4-10/10 The patient was able to verbally demonstrate an understanding of their discharge medications. Medications at Discharge Home Medications brexpiprazole 2 mg tablet (Rexulti) 2 mg PO DAILY 11/23/21 fluoxetine 40 mg capsule 80 cap PO DAILY 11/23/21 methylphenidate HCl 20 mg tablet (Ritalin) 20 tab PO TID 11/23/21 cholecalciferol (vitamin D3) 50 mcg (2,000 unit) capsule (Vitamin D3) 50 mcg PO DAILY 10/02/22 omega 5-yzn-flj-fish oil 1,000 mg (120 mg-180 mg) capsule 1 cap PO BID 10/02/22 zolpidem 10 mg tablet 10 mg PO QPM 10/20/23 prazosin 1 mg capsule 3 mg PO QHS 01/01/24 tizanidine 4 mg tablet 4 mg PO QHS 01/01/24 oxycodone 5 mg tablet 5 - 10 mg (1 - 2 x 5 mg) PO Q4H PRN PRN Pain Score 4-10 5 days #20 tabs 08/29/24
--- NOTE | 2024-08-29 14:48 | CASEMGMT ---
Pt has a dc order placed. CHRISTIANO CM into pt room, pt up walking in room. Pt states he will call a cab for transportation home instead of using the [facility] van. Pt received his rx and denies any homegoing needs at this time.
[2024-08-29 15:15] VITALS: BP 144/68; PULSE 66; RESP 16; TEMP 36.7; O2SAT 93
== END 2024-08-29 15:35 | disposition home or self-care (01) | DRG 230 ==
LOC: ED 12:54 → SDC 13:27 → ACINP 13:28 → SDC 17:10 → MS3 17:10
PROVIDERS: Admitting Provider Surgery; Emergency Provider Emergency Medicine; Visit Provider Surgery
PROC: 0WQF0ZZ Repair Abdominal Wall, Open Approach (ICD-10-PCS; principal; 2024-08-27 14:45)
DX: K42.0 Umbilical hernia with obstruction, without gangrene (principal); K55.029 Acute infarction of small intestine, extent unspecified; F20.9 Schizophrenia, unspecified; F32.A Depression, unspecified; F17.210 Nicotine dependence, cigarettes, uncomplicated; F17.290 Nicotine dependence, other tobacco product, uncomplicated; F41.9 Anxiety disorder, unspecified; F84.0 Autistic disorder; Z79.899 Other long term (current) drug therapy
CPT/HCPCS: 36415; 74177; 80048; 80053; 82962; 83605; 83690; 85025; 88302; 88307; 99283; Q9967; A4216; J2405

== ENCOUNTER 2024-12-08 14:02 | Emergency (ER) | payer MEDICAID, SELFPAY ==
[2024-12-08 14:03] VITALS: BP 165/81; PULSE 80; RESP 26; TEMP 35.7; O2SAT 96
--- NOTE | 2024-12-08 15:57 | ED.RN ---
Received call from tape sewing machine operator that patient called in and stated that the ED was refusing to see him. Went out to the waiting room where patient had been but he had left without being seen. Attempted to call patient, he did not answer. Left him a voicemail to call this RN to discuss his concerns.
--- OUTSIDE RECORDS SUMMARY | 2024-12-08 23:49 | XMS RPT_ITS | CCD ---
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 Gustavo Moreira Attending [facility] Brenda, Dr. Gustavo Moreira Referring [facility] UNKNOWN, PCP Primary Care Unavailable Brenda, Dr. Gustavo Moreira Admitting [facility] Pro vider Dr. Camilo Verdugo Emergency Provider Dr. Helen Villa Admit Provider Dr. Helen Villa Other Provider Dr. Jeanette Tripathi Attending Provider Dr. Jeanette Tripathi Other Provider Unavailable Primary Care Provider UnavailCELINA Mayfield Attending Unavailable CELINA BLISS Referring Unavailable OLIVA RIOS Attending Unavailable SETH, ANKUSH Primary Care Unavailable SETH, ANKUSH Referring Unavailable CELINA BLISS Attending Unavailable SOLEDAD CUEVAS Attending Unavailable SOLEDAD CUEVAS Referring Unavailable MANISHA, INOCENCIA Referring Unavailable Seth BARK SKINNER - DRY MILL OPERATOR, Ankush Primary Care Provider Unavailable Primary Care Provider [facility] Primary Care Pro vider Dr. Isis De Jesus DO Emergency Provider [phone] Betty MCLAUGHLIN, Dr. Romo Attending Provider [phone] Betty MCLAUGHLIN, Dr. Romo Admit Provider Betty MCLAUGHLIN, Dr. Romo Other Provider [phone] [facility] Primary Care Unavailable [facility] Referring Unavailable Tenzin Jason Attending Unavailable [place] Primary Care Unavailable Demetrius Hernández Attending Unavailable Demetrius Hernández Consulting Unavailable [place], [facility] Unavailable Demetrius Hernández Attending Unavailable Demetrius Hernández Admitting Unavailable [place] Unavailable [place] Referring Unavailable Tenzin Jason Attending Unavailable Demetrius Hernández Admitting Unavailable [place] Primary Care Unavailable Demetrius Hernández Attending Unavailable [place] Primary Care Unavailable Christian Singleton Attending Unavailable [place], [facility] Unavailable Provider, Ed Physician Attending Unavail le [place], [facility] Unavailable Daxa Payne Attending UnavailDaxa Mcknight Attending Unavailable [place], [facility] Unavailable Provider, Ed Physician Emergency Provider Unavaviviane lable Medications Current Medications Medication Drug Class(es) Dates Sig (Normalized) Sig (Original) benoxinate hydrochloride 4 mg/ml / fluorescein sodium 2.5 mg/ml ophthalmic solution (1 source) Diagnostic Dye Start: 08-12-2021 End: 08-12-2021 fluorescein-benoxi janae 0.25-0.4 % 1 Drop (FLURESS) brexpiprazole 2 mg oral tablet (20 sources) Atypical Antipsychotic Start: 11-23-2021 take 1 tablet by mouth once daily Brexpiprazole (Rexulti) 2 mg tablet Active 2 mg PO DAILY November 23, 2021 12:00am Start: 04-23-2017 brexpiprazole (REXULTI) 1 mg tablet 04/23/2017 Active busPIRone hydrochloride 7.5 mg oral tablet (4 sources) Start: 11-23-2021 take 7.5 tablets by mouth once daily Buspirone Active 7.5 TABLET PO DAILY November 23, 2021 12:00am cholecalciferol 0.05 mg oral capsule (5 sources) Vitamin D Start: 10-02-2022 take 1 capsule by mouth once daily Cholecalciferol (Vitamin D3) (Vitamin D3) 50 mcg (2,000 unit) Capsule Active 50 ug PO DAILY October 02, 2022 12:00am cyclobenzaprine hydrochloride 10 mg oral tablet (4 sources) Muscle Relaxant Start: 09-18-2021 take 1 tablet by mouth every eight hours as needed cyclobenzaprine (FLEXERIL) 10 mg tablet Take 1 tablet by mouth three times daily as needed for muscle spasm. 15 tablet 09/18/2021 Active Comment on above: Take 1 tablet by talia three times daily as needed for muscle spasm. FLUoxetine 20 mg oral capsule (20 sources) Serotonin Reuptake Inhibitor Start: 04-12-2023 take 1 capsule by mouth once daily FLUoxetine (PROzac) 20 MG capsule Take 20 mg by mouth daily. 0 04/12/2023 Active Start: 11-23-2021 Fluoxetine 40 mg capsule Active 80 NMA PO DAILY November 23, 2021 12:00am Start: 04-23-2012 FLUoxetine HCl (PROZAC) 40 mg capsule 40 mg. Taking 2 tablets daily 04/23/2012 Active Start: 04-23-2012 FLUoxetine HCl (PROZAC) 40 mg capsule Comment on above: 40 mg. Taking 2 tabl ets daily gabapentin 100 mg oral capsule (3 sources) Anti-epileptic Agent Start: 07-26-19 24 take 1 capsule by mouth every eight hours gabapentin (Neurontin) 100 MG capsule Take 100 mg by mouth in the morning and 100 mg at noon and 100 mg before bedtime. 0 07/26/2023 Active hydrOXYzine hydrochloride 50 mg oral tablet (8 sources) Antihistamine Start: 07-31-19 24 take 1 tablet by mouth once hydrOXYzine HCl (Atarax) 50 MG tablet Take 50 mg by mouth Once. 0 07/31/2023 Active Start: 10-02-2022 End: 01-01-2024 take 1 capsule by mouth twice daily Hydroxyzine Pamoate 50 mg capsule Discontinued 50 mg PO TWICE A DAY October 02, 2022 12:00am January 01, 2024 3:22pm ketorolac tromethamine 5 mg/ml ophthalmic solution (4 sources) Nonsteroidal Anti-inflammatory Drug, Cyclooxygenase Inhibitor Start: 08-11-2021 End: 09-15-2021 take 1 drop(s) into the eye(s) four times daily keTORolac (ACULAR) 0.5 % ophthalmic solution Use 1 Drop in the left eye four times daily. 5 mL 2 08/11/2021 09/15/2021 Active Start: 07-18-2021 End: 08-22-2021 take 1 drop(s) into the eye(s) three times daily keTORolac (ACULAR) 0.5 % ophthalmic solution Use 1 Drop in the right eye three times daily. 5 mL 0 07/18/2021 08/02/2021 Discontinued Start: 06-09-2021 End: 07-18-2021 take 1 drop(s) into the eye(s) three times daily keTORolac (ACULAR) 0.5 % ophthalmic solution Use 1 Drop in the right eye three times daily. 06/09/2021 07/18/2021 Discontinued Comment on above: Use 1 Drop in the ri ght eye three times daily. Use 1 Drop in the le ft eye four times daily. magnesium oxide 500 mg oral tablet (3 sources) Start: 06-19-19 take 1 tablet by mouth once daily magnesium oxide 500 MG tablet Take 500 mg by mouth daily. 0 06/19/2023 Active methocarbamol 500 mg oral tablet (3 sources) Muscle Relaxant Start: 07-04-19 End: 07-08-19 take 1 tablet by mouth twice daily methocarbamol (Robaxin) 500 MG tablet Take 1 tablet (500 mg) by mouth 2 times daily for 4 days. 8 tablet 0 07/04/2023 Active 24 hr methylphenidate hydrochloride 18 mg extended release oral tablet (20 sources) Central Nervous System Stimulant Start: 07-24-19 take 1 tablet by mouth once daily in the morning Concerta 18 MG CR tablet Take 18 mg by mouth every morning. 0 07/24/2023 Active Start: 09-25-2022 End: 04-19-2023 Methylphenidate Hcl 60 mg ca psule, ER biphasic 30-70 Discontinued 60 mg PO DAILY September 25, 2022 12:00am April 19, 2023 7:16pm Start: 11-23-2021 Methylphenidat e Hcl (Ritalin) 20 mg tablet Active 20 {tbl} PO THREE TIMES A DAY November 23, 2021 12:00am Start: 11-23-2021 take 1 tablet by talia th once daily Methylphenidate Hcl (Ritalin) 20 mg tablet Active 60 TABLET PO DAILY November 23, 2021 12:00am Start: 04-23-2012 methylphenidat e (RITALIN) 20 mg tablet three times daily. 04/23/2012 Active Comment on above: three times daily. methylPREDNISolone 4 mg oral tablet (3 sources) Corticosteroid Start: 2023 take 1 tablet by mouth once methylPREDNISolone (Medrol Dospak) 4 MG tablets Take 4 mg by mouth 1 (one) time. 0 06/12/2023 Active naproxen 500 mg oral tablet (3 sources) Nonsteroidal Anti-inflammatory Drug Start: 2023 End: 2023 take 1 tablet by mouth twice daily as needed for pain naproxen (Naprosyn) 500 MG tablet Take 1 tablet (500 mg) by mouth 2 times daily as needed (pain) for up to 14 days. 28 tablet 0 06/01/2023 06/15/2023 Active nicotine 4 mg chewing gum (3 sources) Cholinergic Nicotinic Agonist Start: 2023 nicotine polacrilex (Nicorette) 4 MG gum Chew 4 mg daily. 0 06/26/2023 Active omega-3 acid ethyl esters (half-way) 1000 mg oral capsule (5 sources) Start: 2022 [place] 4-Wav-Fok-Fish Oil 1,000 mg (120 mg-180 mg) capsule Active 1 NMA PO TWICE A DAY October 02, 2022 12:00am Start: 10-02-2022 take 1 capsule by [facility] twice daily Halls 1-Cyl-Bxr-Fish Oil Active 1 CAP PO TWICE A DAY October 01, 2022 11:00pm oxyCODONE hydrochloride 5 mg oral tablet (2 sources) Opioid Agonist Start: 08-29-2024 take 5-10 mg by mouth every four hours as needed for pain Oxycodone 5 mg Tablet Active 5 - 10 mg PO EVERY 4 HOURS NEEDED as needed for Pain Score 4-10 20 5 0 August 29, 2024 Irreducible umbilical hernia Umbilical hernia with obstruction, without gangrene prazosin 1 mg oral capsule (20 sources) alpha-Adrenerg ic Edy Start: 11-23-2021 End: 01-01-2024 take 1 capsule by mouth at bedtime Prazosin 1 mg capsule Active 3 mg PO AT BEDTIME January 01, 2024 3:21pm Start: 11-23-2021 take 2 mg by mouth at bedtime Prazosin Active 2 MG PO AT BEDTIME November 22, 2021 11:00pm Start: 05-25-2021 prazosin (MINI PRESS) 1 mg cap 3 mg daily at bedtime. 05/25/2021 Active Start: 05-25-2021 prazosin (MINI PRESS) 1 mg cap Comment on above: 3 mg daily at bedtim e. prednisoLONE acetate 10 mg/ml ophthalmic suspension (8 sources) Corticosteroid Start: 08-11-2021 prednisoLONE acetate (PRED FORTE, ECONOPRED PLUS) 1 % ophthalmic suspension Use 1 Drop in the left eye four times daily. 5 mL 2 08/11/2021 Active Start: 08-11-2021 prednisoLONE a cetate (PRED FORTE, ECONOPRED PLUS) 1 % ophthalmic suspension Use 1 Drop in the left eye four times daily. 5 mL 2 08/11/2021 Active Start: 07-18-2021 End: 08-22-2021 prednisoLONE acetate (PRED F ORTE, ECONOPRED PLUS) 1 % ophthalmic suspension Use 1 Drop in the right eye three times daily. 5 mL 0 07/18/2021 08/02/2021 Discontinued Start: 06-09-2021 End: 07-18-2021 prednisoLONE acetate (PRED F ORTE, ECONOPRED PLUS) 1 % ophthalmic suspension Use 1 Drop in the right eye three times daily. 06/09/2021 07/18/2021 Discontinued Comment on above: Use 1 Drop in the ri ght eye three times daily. Use 1 Drop in the le ft eye four times daily. predniSONE 20 mg oral tablet (2 sources) Start: 09-18-2021 End: 09-23-2021 take 2 tablets by mouth once daily predniSONE (DELTASONE) 20 mg tablet Take 2 tablets by mouth once daily for 5 days. 10 tablet 0 09/18/2021 09/23/2021 Active Comment on above: Take 2 tablets by [facility] once daily for 5 days. propylene glycol 6 mg/ml ophthalmic solution (7 sources) Start: 06-11-2021 End: 09-23-2021 propylene glycoL (SYSTANE COMPLETE) 0.6 % drop Use 1 Drop in both eyes three times daily. 10 mL 2 09/24/2021 Active Start: 06-11-2021 propylene glyc oL (SYSTANE COMPLETE) 0.6 % drop Use 1 Drop in both eyes three times daily. 10 mL 2 06/11/2021 Active Comment on above: Use 1 Drop in both e yes three times daily. tiZANidine 4 mg oral tablet (9 sources) Central alpha-2 Adrenergic Agonist Start: 01-01-2024 take 1 tablet by mouth at bedtime Tizanidine 4 mg tablet Active 4 mg PO AT BEDTIME January 01, 2024 12:00am Start: 09-25-2022 End: 10-20-2023 take 1 tablet by mouth once daily Tizanidine 4 mg tablet Discontinued 4 mg PO DAILY September 25, 2022 12:00am October 20, 2023 7:06pm divalproex sodium 250 mg delayed release oral tablet (13 sources) Mood Stabilizer, Anti-epileptic Agent Start: 10-02-2022 take 1 tablet by mouth twice daily divalproex (Depakote) 250 MG EC tablet Take 250 mg by mouth 2 times daily. 0 10/02/2022 Active Start: 10-02-2022 End: 10-20-2023 take 2 tablets by mouth once daily Divalproex 250 mg tablet,delayed release (DR/EC) Discontinued 500 mg PO DAILY October 02, 2022 12:00am October 20, 2023 7:04pm Start: 10-02-2022 End: 10-20-2023 take 3 tablets by mouth at bedtime Divalproex 250 mg tablet,delayed release (DR/EC) Discontinued 750 mg PO AT BEDTIME October 02, 2022 12:00am October 20, 2023 7:04pm Start: 10-02-2022 take 500 mg by mouth once daily Divalproex Active 500 MG PO DAILY October 01, 2022 11:00pm Start: 10-02-2022 take 750 mg by mouth at bedtime Divalproex Active 750 MG PO AT BEDTIME October 01, 2022 11:00pm zolpidem tartrate 10 mg oral tablet (20 sources) gamma-Aminobutyric Acid-ergic Agonist Start: 10-20-2023 take 1 tablet by mouth once daily in the evening Zolpidem 10 mg tablet Active 10 mg PO EVERY EVENING October 20, 2023 12:00am Start: 11-23-2021 End: 04-20-2023 Zolpidem (Ambien) 10 mg tabl et Discontinued 10 {tbl} PO AT BEDTIME November 23, 2021 12:00am April 20, 2023 12:58pm Start: 04-23-2017 End: 04-20-2023 take 1 tablet by mouth at bedtime Zolpidem (Ambien) 10 mg tablet Discontinued 10 TABLET PO AT BEDTIME November 22, 2021 11:00pm April 20, 2023 11:58am Completed/Discontinued Medications Medication Drug Class(es) Dates Sig (Normalized) Sig (Original) acetaminophen 325 mg / HYDROcodone bitartrate 5 mg oral tablet (3 sources) Opioid Agonist Start: 10-11-2023 End: 01-01-2024 Hydrocodone-Acetami nophen 5-325 mg tablet Discontinued 1 {tbl} PO EVERY 6 HOURS NEEDED as needed for Pain 6 3 0 October 11, 2023 January 01, 2024 3:22pm Laceration of hand Laceration without foreign body of unspecified hand, initial encounter cephalexin 500 mg oral capsule (3 sources) Cephalosporin Antibacterial Start: 10-20-2023 End: 01-01-2024 take 1 capsule by mouth every twelve hours Cephalexin 500 mg capsule Discontinued 500 mg PO EVERY 12 HOURS 14 0 October 20, 2023 12:00am January 01, 2024 3:22pm fluorometholone 1 mg/ml ophthalmic suspension (5 sources) Corticosteroid Start: 06-11-2021 End: 08-12-2021 fluorometholone (FML LIQUID FILM) 0.1 % ophthalmic suspension Use 1 Drop in the left eye three times daily. 5 mL 1 06/11/2021 07/18/2021 Discontinued Comment on above: Use 1 Drop in the le ft eye three times daily. QUEtiapine 100 mg oral tablet (10 sources) Atypical Antipsychotic Start: 10-02-2022 End: 10-20-2023 take 1 tablet by mouth once daily Quetiapine 100 mg Tablet Discontinued 100 mg PO DAILY October 02, 2022 12:00am October 20, 2023 7:05pm EVERYDAY AT NOON. Start: 10-02-2022 End: 10-20-2023 take 3 tablets by mouth once daily at bedtime Quetiapine 100 mg Tablet Discontinued 300 mg PO DAILY October 02, 2022 12:00am October 20, 2023 7:05pm TAKE 3 TABLETS AT BEDTIME. Start: 10-02-2022 take 3 tablets by mo ut once daily at bedtime Quetiapine Active 300 MG PO DAILY October 01, 2022 11:00pm TAKE 3 TABLETS AT BEDTIME. traZODone hydrochloride 100 mg oral tablet (8 sources) Serotonin Reuptake Inhibitor Start: 10-02-2022 End: 08-27-2024 take 1 tablet by mouth at bedtime as needed for sleep Trazodone 100 mg tablet Discontinued 100 mg PO AT BEDTIME as needed for Sleep October 02, 2022 12:00am August 27, 2024 1:23pm Problems Active Problems Problem Classification Problem Date Documented Date Episodic/Chronic Abdominal hernia (8 sources) Irreducible umbilical hernia; Translations: [Umbilical hernia with obstruction, without gangrene] Onset: 09-11-2024 08-27-2024 Episodic Acute and unspecified renal failure (5 sources) Acute renal failure syndrome; Translations: [Acute kidney failure, unspecified] 04-19-2023 Episodic Administrative/social admission (2 sources) Other problems related to medical facilities and other health care; Translations: [Other problems related to medical facilities and other health care] Onset: 07-04-2023 Episodic Alcohol-related disorders (10 sources) Alcohol abuse; Translations: [Alcohol abuse, uncomplicated] 10-02-2022 Chronic Alcohol-related disorders (11 sources) Alcohol intoxication; Translations: [Alcohol use, unspecified with intoxication, unspecified] 09-25-2022 Episodic Anxiety disorders (20 sources) Phobia; Translations: [Phobic anxiety disorder, unspecified] Onset: 05-17-2021 05-17-2021 Chronic Attention-deficit, conduct, and disruptive behavior disorders (8 sources) Attention deficit hyperactivity disorder; Translations: [Attention-deficit hyperactivity disorder, unspecified type] Onset: 05-17-2021 05-17-2021 Chronic Attention-deficit, conduct, and disruptive behavior disorders (1 source) Attention-deficit hyperactivity disorder, unspecified type; Translations: [Attention-deficit hyperactivity disorder, unspecified type] Onset: 08-11-2021 Chronic Diseases of white blood cells (2 sources) Leukocytosis; Translations: [Elevated white blood cell count, unspecified] 08-27-2024 Chronic E Codes: Fall (14 sources) Fall; Translations: [Unspecified fall, initial encounter] 03-14-2022 Episodic Intracranial injury (9 sources) Concussion injury of body structure; Translations: [Concussion] 03-14-2022 Episodic Miscellaneous mental health disorders (1 source) Sleep terrors [night terrors]; Translations: [Sleep terrors [night terrors]] Onset: 08-11-2021 Chronic Mood disorders (6 sources) Depressive disorder; Translations: [Depression] 09-25-2022 Chronic Mood disorders (1 source) Mood disorders; Translations: [Depression, unspecified] Onset: 08-11-2021 Open wounds of extremities (17 sources) Laceration of left forearm; Translations: [Laceration without foreign body of left forearm, initial encounter] Onset: 10-23-2023 09-24-2022 Episodic Open wounds of head; neck; and trunk (5 sources) Scalp laceration; Translations: [Laceration without foreign body of scalp, initial encounter] 10-02-2022 Episodic Other acquired deformities (3 sources) Lumbar spondylolisthesis; Translations: [Spondylolisthesis, lumbar region] 01-01-2024 Episodic Other connective tissue disease (1 source) Bilateral heel pain; Translations: [Pain in right foot] 06-01-2023 Episodic Other connective tissue disease (4 sources) Calcaneal spur of right foot; Translations: [Calcaneal spur, right foot] Onset: 06-14-2023 06-14-2023 Episodic Other connective tissue disease (4 sources) Calcaneal spur of left foot; Translations: [Calcaneal spur, left foot] Onset: 06-14-2023 06-14-2023 Episodic Other connective tissue disease (4 sources) Pain in right foot; Translations: [Pain in right foot] Onset: 06-01-2023 06-14-2023 Episodic Other connective tissue disease (4 sources) Pain in left foot; Translations: [Pain in left foot] Onset: 06-01-2023 06-14-2023 Episodic Other connective tissue disease (2 sources) Pain in left leg; Translations: [Pain in left leg] Onset: 07-04-2023 Episodic Other connective tissue disease (1 source) Calcaneal spur, right foot; Translations: [Calcaneal spur, right foot] Onset: 06-14-2023 Episodic Other connective tissue disease (1 source) Calcaneal spur, left foot; Translations: [Calcaneal spur, left foot] Onset: 06-14-2023 Episodic Other connective tissue disease (1 source) Pain in right foot; Translations: [Pain in right foot] Onset: 06-01-2023 Episodic Other connective tissue disease (1 source) Pain in left foot; Translations: [Pain in left foot] Onset: 06-01-2023 Episodic Other eye disorders (9 sources) Constricted pupil; 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] Onset: 05-17-2021 05-17-2021 Chronic Other eye disorders (10 sources) Vitreous floaters; Translations: [Other vitreous opacities, bilateral] 12-01-2021 Chronic Other injuries and conditions due to external causes (5 sources) Closed injury of head; Translations: [Unspecified injury of head, initial encounter] 10-06-2022 Episodic Other injuries and conditions due to external causes (1 source) Local infection of wound; Translations: [Other injury of unspecified body region, initial encounter] 10-16-2023 Episodic Other screening for suspected conditions (not mental disorders or infectious disease) (2 sources) Increased lactic acid level; Translations: [Other specified abnormal findings of blood chemistry] 08-27-2024 Episodic Other skin disorders (1 source) Mass of hand; Translations: [Localized swelling, mass and lump, right upper limb] 07-07-2021 Episodic Residual codes; unclassified (5 sources) Unable to perform personal care activity; Translations: [Other specified health status] 10-02-2022 Episodic Residual codes; unclassified (5 sources) Confusional state; Translations: [Disorientation, unspecified] 10-06-2022 Episodic Residual codes; unclassified (4 sources) Disturbance of consciousness; Translations: [Transient alteration of awareness] 04-19-2023 Episodic Residual codes; unclassified (4 sources) Acute confusion; Translations: [Disorientation, unspecified] 04-19-2023 Episodic Residual codes; unclassified (1 source) Disorientation, unspecified; Translations: [Delirium due to conditions classified elsewhere] 04-20-2023 Episodic Residual codes; unclassified (1 source) Transient alteration of awareness; Translations: [Other alteration of consciousness] 04-20-2023 Episodic Screening and history of mental health and substance abuse codes (5 sources) Patient condition resolved; Translations: [Personal history of other mental and behavioral disorders] 10-02-2022 Episodic Skin and subcutaneous tissue infections (1 source) Cellulitis of hand; Translations: [Cellulitis of unspecified part of limb] 10-16-2023 Episodic Spondylosis; intervertebral disc disorders; other back problems (5 sources) Degeneration of lumbar intervertebral disc; Translations: [Other intervertebral disc degeneration, lumbar region] Onset: 08-03-2023 08-03-2023 Chronic Spondylosis; intervertebral disc disorders; other back problems (20 sources) Acute low back pain; Translations: [Acute midline low back pain without sciatica] Onset: 08-03-2023 Episodic Substance-related disorders (5 sources) Drug abuse; Translations: [Other psychoactive substance abuse, uncomplicated] 10-02-2022 Chronic Suicide and intentional self-inflicted injury (5 sources) Suicidal thoughts; Translations: [Suicidal ideations] 10-02-2022 Episodic Syncope (5 sources) Syncope; Translations: [Syncope and collapse] 10-02-2022 Episodic Unclassified (2 sources) Low back pain, unspecified; Translations: [Low back pain, unspecified] Onset: 08-03-2023 Past or Other Problems Problem Classification Problem Date Documented Date Episodic/Chronic Attention-deficit, conduct, and disruptive behavior disorders (3 sources) Adult attention deficit hyperactivity disorder ; Translations: [Attention-deficit hyperactivity disorder, unspecified type] Resolved: 07-07-2021 07-07-2021 Chronic Blindness and vision defects (9 sources) Bilateral regular astigmatism; Translations: [Regular astigmatism, bilateral] Onset: 05-17-2021 05-17-2021 Episodic Cataract (13 sources) 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; Translations: [Combined forms of age-related cataract, left eye] Onset: 05-17-2021 Resolved: 08-12-2021 05-17-2021 Chronic Other eye disorders (10 sources) H/O: R cataract extraction; Translations: [Cataract extraction status, right eye] Onset: 06-28-2021 06-28-2021 Episodic Other eye disorders (6 sources) H/O: L cataract extraction; Translations: [Cataract extraction status, left eye] Onset: 08-12-2021 Episodic Other nervous system disorders (1 source) Tremor, unspecified; Translations: [Tremor, unspecified] Onset: 11-22-2023 Episodic Unclassified (1 source) Low back pain, unspecified; Translations: [Low back pain, unspecified] Onset: 08-03-2023 Results Test Name Value Interpretation Reference Range Facility Absolute lymphocyte countOrd ered By: Demetrius Hernández on 08-29-2024 Lymphocytes Auto (Unsp spec) [#/Vol] 2.91 10*3/uL 0.83-4.51 [facility] Absolute neutrophil countOrd ered By: Demetrius Hernández on 08-29-2024 Neutrophils (Bld) [#/Vol] 7.9 10*3/uL High 2.0-7.7 [facility] Anion gap in Serum or Plasma Ordered By: Demetrius Hernández on 08-29-2024 Anion gap [Moles/Vol] 9 mmol/L 5- [facility] Automated lymphocyte count a s percentage of total leukocytesOrdered By: Demetrius Hernández on 08-29-2024 Lymphocytes/100 WBC Auto (Unsp spec) 24.6 % 19-41 [facility] BUN/creatinine ratioOrdered By: Demetrius Hernández on 08-29-2024 Urea nitrogen/Creatinine [Mass ratio] 13.1 mg/mg 10- [facility] Basic Metabolic Profile (BMP )on 08-29-2024 BUN/CRE 13.1 RATIO Normal - [facility] Comment on above: Performed By: #### L 500.2500, L100.0100 ####[facility] [id number] [place], [address] Calcium [Mass/Vol] 8.5 mg/dL Normal 7.6-11.0 [facility] Comment on above: Performed By: #### L 500.2500, L100.0100 ####[facility] [address] [place], [address] Chloride [Moles/Vol] 107 mmol/L Normal 98-108 [facility] Comment on above: Performed By: #### L 500.2500, L100.0100 ####[facility] [address] [place], [address] CO2 [Moles/Vol] 24.3 mmol/L Normal 21.0-32.0 [facility] Comment on above: Performed By: #### L 500.2500, L100.0100 ####[facility] [address] [place], [address] Creatinine [Mass/Vol] 0.71 mg/dL Normal 0.70-1.20 [facility] Comment on above: Performed By: #### L 500.2500, L100.0100 ####[facility] [address] [place], [address] ECRCL 142.30 ml/min Normal 50-250 [facility] Comment on above: Performed By: #### L 500.2500, L100.0100 ####[facility] [address] [place], [address] GAP 9 Normal 5-15 [facility] Comment on above: Performed By: #### L 500.2500, L100.0100 ####[facility] [address] [place], [address] GFR/1.73 sq M.predicted among non-blacks MDRD (S/P/Bld) [Vol rate/Area] 108 mL/min/{1.73_m2} Normal >60 [facility] Comment on above: Result Comment: mL/m in/1.73m2 CKD-EPI Creatinine Equation (2020) Performed By: #### L 500.2500, L100.0100 ####[facility] [address] [place], [address] Glucose [Mass/Vol] 89 mg/dL Normal 70-99 [facility] Comment on above: Performed By: #### L 500.2500, L100.0100 ####[facility] [address] [place], [address] Potassium [Moles/Vol] 3.4 mmol/L Normal 3.3-5.1 [facility] Comment on above: Performed By: #### L 500.2500, L100.0100 ####[facility] [address] [place], [address] Sodium [Moles/Vol] 140 mmol/L Normal 133-145 [facility] Comment on above: Performed By: #### L 500.2500, L100.0100 ####[facility] [address] [place], [address] Urea nitrogen [Mass/Vol] 9 mg/dL Normal 4-19 [facility] Comment on above: Performed By: #### L 500.2500, L100.0100 ####[facility] [address] [place], [address] Basophil percentageOrdered B y: Demetrius Hernádnez on 08-29-2024 Basophils/100 WBC (Bld) 0.6 % 0-1 [facility] CBC W/Diff, Automatedon Absolute Lymph 2.91 X10 3/uL Normal 0.83-4.51 [facility] Comment on above: Performed By: #### L 500.2500, L100.0100 ####[facility] [address] [place], [address] Absolute Neut 7.9 X10 3/uL High 2.0-7.7 [facility] Comment on above: Performed By: #### L 500.2500, L100.0100 ####[facility] [address] [place], [address] Basophils/100 WBC (Bld) 0.6 % Normal 0-1 [facility] Comment on above: Performed By: #### L 500.2500, L100.0100 ####[facility] [address] [place], [address] Eosinophils/100 WBC (Bld) 0.9 % Normal 0-5 [facility] Comment on above: Performed By: #### L 500.2500, L100.0100 ####[facility] [address] [place], [address] Erythrocyte distribution width (RBC) [Ratio] 13.6 % Normal 11.6-14.6 [facility] Comment on above: Performed By: #### L 500.2500, L100.0100 ####[facility] [address] [place], [address] Hematocrit (Bld) [Volume fraction] 35.5 % Low 40-54 [facility] Comment on above: Performed By: #### L 500.2500, L100.0100 ####[facility] [address] [place], [address] Hemoglobin (Bld) [Mass/Vol] 11.8 g/dL Low 13.0-16.5 [facility] Comment on above: Performed By: #### L 500.2500, L100.0100 ####[facility] [address] [place], [address] IG% 0.300 Normal 0.0-0.9 [facility] Comment on above: Result Comment: IG% - Immature Granulocytes (promyelocytes, myelocytes and metamyelocytes) > 1% indicates that a LEFT SHIFT is Present. Performed By: #### L 500.2500, L100.0100 ####[facility] [address] [place], [address] Lymphocytes/100 WBC (Bld) 24.6 % Normal 19-41 [facility] Comment on above: Performed By: #### L 500.2500, L100.0100 ####[facility] [address] [place], [address] MCH (RBC) [Entitic mass] 29.6 pg Normal 27.0-32.0 [facility] Comment on above: Performed By: #### L 500.2500, L100.0100 ####[facility] [address] [place], [address] MCHC (RBC) [Mass/Vol] 33.2 g/dL Normal 32-36 [facility] Comment on above: Performed By: #### L 500.2500, L100.0100 ####[facility] [address] [place], [address] MCV (RBC) [Entitic vol] 89.0 fL Normal 80-94 [facility] Comment on above: Performed By: #### L 500.2500, L100.0100 ####[facility] [address] [place], [address] Monocytes/100 WBC (Bld) 6.6 % Normal 0-10 [facility] Comment on above: Performed By: #### L 500.2500, L100.0100 ####[facility] [address] [place], [address] Neutrophils/100 WBC (Bld) 67.0 % Normal 47-70 [facility] Comment on above: Performed By: #### L 500.2500, L100.0100 ####[facility] [address] [place], [address] Nucleated RBC (Bld) [#/Vol] 0 10*3/uL Normal 0-5 [facility] Comment on above: Performed By: #### L 500.2500, L100.0100 ####[facility] [address] [place], [address] Platelet mean volume (Bld) [Entitic vol] 9.7 fL Normal 6.2-12.0 [facility] Comment on above: Performed By: #### L 500.2500, L100.0100 ####[facility] [address] [place], [address] Platelets (Bld) [#/Vol] 274 10*3/uL Normal 150-450 [facility] Comment on above: Performed By: #### L 500.2500, L100.0100 ####[facility] [address] [place], [address] RBC (Bld) [#/Vol] 3.99 10*6/uL Low 4.6-6.2 [facility] Comment on above: Performed By: #### L 500.2500, L100.0100 ####[facility] [address] [place], [address] RDW SD 44.5 fl High 35.1-43.9 [facility] Comment on above: Performed By: #### L 500.2500, L100.0100 ####[facility] [address] [place], [address] WBC (Bld) [#/Vol] 11.8 10*3/uL High 4.4-11.0 [facility] Comment on above: Performed By: #### L 500.2500, L100.0100 ####[facility] [address] [place], [address] Carbon dioxide, total [Moles /volume] in Central venous bloodOrdered By: Demetrius Hernández on 08-29-2024 CO2 [Moles/Vol] 24.3 mmol/L 21.0-32.0 [facility] Chloride assayOrdered By: Gloria Hernández on 08-29-2024 Chloride [Moles/Vol] 107 mmol/L 98-108 [facility] Eosinophil percentageOrdered By: Demetrius Hernández on 08-29-2024 Eosinophils/100 WBC (Bld) 0.9 % 0-5 [facility] Erythrocyte distribution wid th ratioOrdered By: Demetrius Hernández on 08-29-2024 Erythrocyte distribution width (RBC) [Ratio] 13.6 % 11.6-14.6 [facility] Erythrocyte distribution wid th standard deviationOrdered By: Demetrius Hernández on 08-29-2024 Erythrocyte distribution width (RBC) [Ratio] 44.5 fl High 35.1-43.9 [facility] Glomerular filtration rate ( GFR) estimation/1.73 sq m using serum, plasma, or whole bOrdered By: Demetrius Hernández on 08-29-2024 GFR/1.73 sq M.predicted among non-blacks MDRD (S/P/Bld) [Vol rate/Area] 108 mL/min/{1.73_m2} >60 [facility] Comment on above: mL/min/1.73m2 CKD-EP I Creatinine Equation (2020) Hematocrit Auto (Bld) [Volum e fraction]Ordered By: Demetrius Hernández on 08-29-2024 Hematocrit (Bld) [Volume fraction] 35.5 % Low 40-54 [facility] Hemoglobin measurementOrdere d By: Demetrius Hernández on 08-29-2024 Hemoglobin (Bld) [Mass/Vol] 11.8 g/dL Low 13.0-16.5 [facility] Immature granulocytes/100 WB C Auto (Bld)Ordered By: Demetrius Hernández on 08-29-2024 Immature granulocytes/100 WBC (Bld) 0.300 % 0.0-0.9 [facility] Comment on above: IG% - Immature Granu locytes (promyelocytes, myelocytes and metamyelocytes) > 1% indicates that a LEFT SHIFT is Present. MCV (mean corpuscular volume ) determinationOrdered By: Demetrius Hernández on 08-29-2024 MCV (RBC) [Entitic vol] 89.0 fL 80-94 [facility] Mean corpuscular hemoglobin (MCH) determinationOrdered By: Demetrius Hernández on 08-29-2024 MCH (RBC) [Entitic mass] 29.6 pg 27.0-32.0 [facility] Mean corpuscular hemoglobin concentration (MCHC) determinationOrdered By: Demetrius Hernández on 08-29-2024 MCHC (RBC) [Mass/Vol] 33.2 g/dL 32-36 [facility] Mean platelet volume determi nationOrdered By: Demetrius Hernández on 08-29-2024 Platelet mean volume (Bld) [Entitic vol] 9.7 fL 6.2-12.0 [facility] Monocyte percentageOrdered B y: Demetrius Hernández on 08-29-2024 Monocytes/100 WBC (Bld) 6.6 % 0-10 [facility] Neutrophil percentageOrdered By: Demetrius Hernández on 08-29-2024 Neutrophils/100 WBC (Bld) 67.0 % 47-70 [facility] Nucleated red blood cell per centageOrdered By: Demetrius Hernández on 08-29-2024 Nucleated RBC/100 WBC (Bld) [Ratio] 0 % 0-5 [facility] Platelet countOrdered By: Gloria Hernández on 08-29-2024 Platelets (Bld) [#/Vol] 274 10*3/uL 150-450 [facility] Potassium measurement (mass/ volume)Ordered By: Demetrius Hernández on 08-29-2024 Potassium (Unsp spec) [Mass/Vol] 3.4 mmol/L 3.3-5.1 [facility] RBC Auto (Bld) [#/Vol]Ordere d By: Demetrius Hernández on 08-29-2024 RBC (Bld) [#/Vol] 3.99 10*6/uL Low 4.6-6.2 [facility] Serum creatinine measurement (mass/volume)Ordered By: Demetrius Hernández on 08-29-2024 Creatinine [Mass/Vol] 0.71 mg/dL 0.70-1.20 [facility] Serum glucose measurement (m ass/volume)Ordered By: Demetrius Hernández on 08-29-2024 Glucose [Mass/Vol] 89 mg/dL 70-99 [facility] Serum or plasma calcium chet urement (mass/volume)Ordered By: Demetrius Hernández on 08-29-2024 Calcium [Mass/Vol] 8.5 mg/dL 7.6-11.0 [facility] Serum or plasma urea nitroge n measurement (mass/volume)Ordered By: Demetrius Hernández on 08-29-2024 Urea nitrogen [Mass/Vol] 9 mg/dL 4-19 [facility] Sodium levelOrdered By: Grant Hernández on 08-29-2024 Sodium [Moles/Vol] 140 mmol/L 133-145 [facility] White blood cell (WBC) count Ordered By: Demetrius Hernández on 05-09-2025 WBC (Bld) [#/Vol] 11.8 10*3/uL High 4.4-11.0 [facility] Basic Metabolic Profile (BMP )on 08-28-2024 BUN/CRE 11.0 RATIO Normal 10-20 [facility] Comment on above: Performed By: #### L 100.0100, L500.2500 ####[facility] [address] [place], [address] Calcium [Mass/Vol] 8.6 mg/dL Normal 7.6-11.0 [facility] Comment on above: Performed By: #### L 100.0100, L500.2500 ####[facility] [address] [place], [address] Chloride [Moles/Vol] 106 mmol/L Normal 98-108 [facility] Comment on above: Performed By: #### L 100.0100, L500.2500 ####[facility] [address] [place], [address] CO2 [Moles/Vol] 22.4 mmol/L Normal 21.0-32.0 [facility] Comment on above: Performed By: #### L 100.0100, L500.2500 ####[facility] [address] [place], [address] Creatinine [Mass/Vol] 0.71 mg/dL Normal 0.70-1.20 [facility] Comment on above: Performed By: #### L 100.0100, L500.2500 ####[facility] [address] [place], [address] ECRCL 142.30 ml/min Normal 50-250 [facility] Comment on above: Performed By: #### L 100.0100, L500.2500 ####[facility] [address] [place], [address] GAP 11 Normal 5-15 [facility] Comment on above: Performed By: #### L 100.0100, L500.2500 ####[facility] [address] [place], [address] GFR/1.73 sq M.predicted among non-blacks MDRD (S/P/Bld) [Vol rate/Area] 108 mL/min/{1.73_m2} Normal >60 [facility] Comment on above: Result Comment: mL/m in/1.73m2 CKD-EPI Creatinine Equation (2020) Performed By: #### L 100.0100, L500.2500 ####[facility] [address] [place], [address] Glucose [Mass/Vol] 148 mg/dL High 70-99 [facility] Comment on above: Performed By: #### L 100.0100, L500.2500 ####[facility] [address] [place], [address] Potassium [Moles/Vol] 4.0 mmol/L Normal 3.3-5.1 [facility] Comment on above: Performed By: #### L 100.0100, L500.2500 ####[facility] [address] [place], [address] Sodium [Moles/Vol] 139 mmol/L Normal 133-145 [facility] Comment on above: Performed By: #### L 100.0100, L500.2500 ####[facility] [address] [place], [address] Urea nitrogen [Mass/Vol] 8 mg/dL Normal 4-19 [facility] Comment on above: Performed By: #### L 100.0100, L500.2500 ####[facility] [address] [place], [address] CBC W/Diff, Automatedon 05-0 8-2024 Absolute Lymph 1.38 X10 3/uL Normal 0.83-4.51 [facility] Comment on above: Performed By: #### L 100.0100, L500.2500 #### [facility] [address] [place], [address] Absolute Neut 16.8 X10 3/uL High 2.0-7.7 [facility] Comment on above: Performed By: #### L 100.0100, L500.2500 #### [facility] [address] [place], [address] Basophils/100 WBC (Bld) 0.2 % Normal 0-1 [facility] Comment on above: Performed By: #### L 100.0100, L500.2500 #### [facility] [address] [place], [address] Eosinophils/100 WBC (Bld) 0.0 % Normal 0-5 [facility] Comment on above: Performed By: #### L 100.0100, L500.2500 #### [facility] [address] [place], [address] Erythrocyte distribution width (RBC) [Ratio] 13.7 % Normal 11.6-14.6 [facility] Comment on above: Performed By: #### L 100.0100, L500.2500 #### [facility] [address] [place], [address] Hematocrit (Bld) [Volume fraction] 35.9 % Low 40-54 [facility] Comment on above: Performed By: #### L 100.0100, L500.2500 #### [facility] [address] [place], [address] Hemoglobin (Bld) [Mass/Vol] 12.4 g/dL Low 13.0-16.5 [facility] Comment on above: Performed By: #### L 100.0100, L500.2500 #### [facility] [address] [place], [address] IG% 0.600 Normal 0.0-0.9 [facility] Comment on above: Result Comment: IG% - Immature Granulocytes (promyelocytes, myelocytes and metamyelocytes) > 1% indicates that a LEFT SHIFT is Present. Performed By: #### L 100.0100, L500.2500 #### [facility] [address] [place], [address] Lymphocytes/100 WBC (Bld) 7.2 % Low 19-41 [facility] Comment on above: Performed By: #### L 100.0100, L500.2500 #### [facility] [address] [place], [address] MCH (RBC) [Entitic mass] 29.8 pg Normal 27.0-32.0 [facility] Comment on above: Performed By: #### L 100.0100, L500.2500 #### [facility] [address] [place], [address] MCHC (RBC) [Mass/Vol] 34.5 g/dL Normal 32-36 [facility] Comment on above: Performed By: #### L 100.0100, L500.2500 #### [facility] [address] [place], [address] MCV (RBC) [Entitic vol] 86.3 fL Normal 80-94 [facility] Comment on above: Performed By: #### L 100.0100, L500.2500 #### [facility] [address] [place], [address] Monocytes/100 WBC (Bld) 4.3 % Normal 0-10 [facility] Comment on above: Performed By: #### L 100.0100, L500.2500 #### [facility] [address] [place], [address] Neutrophils/100 WBC (Bld) 87.7 % High 47-70 [facility] Comment on above: Performed By: #### L 100.0100, L500.2500 #### [facility] [address] [place], [address] Nucleated RBC (Bld) [#/Vol] 0 10*3/uL Normal 0-5 [facility] Comment on above: Performed By: #### L 100.0100, L500.2500 #### [facility] [address] [place], [address] Platelet mean volume (Bld) [Entitic vol] 9.4 fL Normal 6.2-12.0 [facility] Comment on above: Performed By: #### L 100.0100, L500.2500 #### [facility] [address] [place], [address] Platelets (Bld) [#/Vol] 289 10*3/uL Normal 150-450 [facility] Comment on above: Performed By: #### L 100.0100, L500.2500 #### [facility] [address] [place], [address] RBC (Bld) [#/Vol] 4.16 10*6/uL Low 4.6-6.2 [facility] Comment on above: Performed By: #### L 100.0100, L500.2500 #### [facility] [address] [place], [address] RDW SD 42.5 fl Normal 35.1-43.9 [facility] Comment on above: Performed By: #### L 100.0100, L500.2500 #### [facility] [address] [place], [address] WBC (Bld) [#/Vol] 19.2 10*3/uL High 4.4-11.0 [facility] Comment on above: Performed By: #### L 100.0100, L500.2500 #### [facility] [address] [place], [address] Abdomen/Pelvis W IV Cont ONL Yon 08-27-2024 Abdomen/Pelvis W IV Cont ONLY [facility] Imaging Services [address] [place], [place] [address] Abdomen/Pelvis W IV Cont ONLY MR#: [id number] Acct: [id number] Name: MIKE HATCH Rep #: [id number] : 1970 M 54 From: Jazlyn Michael MD [facility] Status: REG ER Study: Abdomen/Pelvis W IV Cont ONLY Date of Exam: Exam# [id number] Ordering Dr: Isis De Jesus DO PROCEDURE: ABDOMEN/PELVIS W IV CONT ONLY, 08/27/2024 REASON FOR EXAM: INCARCERATED HERNIA- UMBILICAL TECHNIQUE: CT abdomen and pelvis was performed with IV contrast. Multiplanar reformats were generated. IV contrast: Isovue-300 VOLUME: 100mL RADIATION DOSE SUMMARY: CTDlvol: 13.30+ 22.12 mGy DLP: 1288.79 mGycm One or more dose reduction techniques were used (e.g., Automated exposure control, adjustment of the mA and/or kV according to patient size, use of iterative reconstruction technique). COMPARISON: None FINDINGS: Lung bases: RIGHT coronary atherosclerosis and/or stent.. Liver: Unremarkable. Spleen: Borderline mild splenomegaly, 13.1 cm coronal.. Gallbladder: Unremarkable. Pancreas: Fatty infiltration.. Adrenals: Unremarkable. Kidneys: Unremarkable. Bowel: Mild proximal small bowel dilatation up to 3.6 cm with transition at the level of a small bowel and fat containing umbilical hernia. The short-segment of bowel within the hernia sac is also mildly fluid dilated to 3.2 cm. Distal small bowel is decompressed. Normal caliber appendix. Lymph nodes: Unremarkable. Vasculature: Mild atherosclerosis.. Peritoneum: Trace nonspecific central mesenteric stranding.. Bladder: Underdistended and suboptimally evaluated. Mild bladder wall thickening versus underdistention. Nonspecific intramural fat deposition within the magdaleno of the bladder. Reproductive Organs: Unremarkable. Body Wall: As above. Trace subcutaneous stranding surrounding the hernia sac. Neck measures 1.3 x 2.2 cm. Bones: Mild multilevel spondylosis mild lumbar levoscoliosis.. CT/Abdomen/Pelvis W IV Cont ONLY IMPRESSION: 1. Small umbilical hernia containing fat and a short segment of minimally dilated small bowel. Given two transition points associated with the entry and exit from the hernia sac, early closed loop obstruction is possible. Mild upstream intraperitoneal small-bowel dilatation suggests associated early simple mechanical small-bowel obstruction. Recommend surgical consultation. 2. Trace subcutaneous inflammatory changes surrounding the hernia sac are nonspecific; correlate for the clinical diagnosis of bowel strangulation. 3. Mild bladder wall thickening versus underdistention. Correlate for cystitis. 4. Borderline mild splenomegaly. 5. Additional description as above. Reading Location: [id number] CC: Dr. Isis De Jesus DO; [facility] [employer] Supervisor: Signed Normal [facility] Absolute lymphocyte countOrd ered By: Isis De Jesus on 08-27-2024 Lymphocytes Auto (Unsp spec) [#/Vol] 4.11 10*3/uL 0.83-4.51 [facility] Absolute neutrophil countOrd ered By: Isis De Jesus on 08-27-2024 Neutrophils (Bld) [#/Vol] 16.4 10*3/uL High 2.0-7.7 [facility] Anion gap in Serum or Plasma Ordered By: Isis De Jesus on 08-27-2024 Anion gap [Moles/Vol] 18 mmol/L High 5-15 [facility] Automated lymphocyte count a s percentage of total leukocytesOrdered By: Isis De Jesus on 08-27-2024 Lymphocytes/100 WBC Auto (Unsp spec) 18.7 % Low 19-41 [facility] BUN/creatinine ratioOrdered By: Isis De Jesus on 08-27-2024 Urea nitrogen/Creatinine [Mass ratio] 6.1 mg/mg Low 10-20 [facility] Basophil percentageOrdered B y: Isis De Jesus on 08-27-2024 Basophils/100 WBC (Bld) 0.7 % 0-1 [facility] Bedside Glucoseon 08-27-2024 FINGERSTICK GLU 130 mg/dL High 74-106 [facility] Comment on above: Result Comment: SAMANTHA COTTER OF PATIENT CARE PER NURSING PROTOCOL Performed By: #### L 501.080 ####[facility] [address] [place], [address] Bilirubin, totalOrdered By: Isis De Jesus on 08-27-2024 Bilirubin [Mass/Vol] 0.45 mg/dL 0.00-1.30 [facility] CBC W/Diff, Automatedon Absolute Lymph 4.11 X10 3/uL Normal 0.83-4.51 [facility] Comment on above: Performed By: #### L 500.4050, L501.2450, L503.6005, L100.0100 #### [facility] [address] [place], [address] Absolute Neut 16.4 X10 3/uL High 2.0-7.7 [facility] Comment on above: Performed By: #### L 500.4050, L501.2450, L503.6005, L100.0100 #### [facility] [address] [place], [address] Basophils/100 WBC (Bld) 0.7 % Normal 0-1 [facility] Comment on above: Performed By: #### L 500.4050, L501.2450, L503.6005, L100.0100 #### [facility] [address] [place], [address] Eosinophils/100 WBC (Bld) 0.4 % Normal 0-5 [facility] Comment on above: Performed By: #### L 500.4050, L501.2450, L503.6005, L100.0100 #### [facility] [address] [place], [address] Erythrocyte distribution width (RBC) [Ratio] 13.4 % Normal 11.6-14.6 [facility] Comment on above: Performed By: #### L 500.4050, L501.2450, L503.6005, L100.0100 #### [facility] [address] [place], [address] Hematocrit (Bld) [Volume fraction] 43.7 % Normal 40-54 [facility] Comment on above: Performed By: #### L 500.4050, L501.2450, L503.6005, L100.0100 #### [facility] [address] [place], [address] Hemoglobin (Bld) [Mass/Vol] 15.3 g/dL Normal 13.0-16.5 [facility] Comment on above: Performed By: #### L 500.4050, L501.2450, L503.6005, L100.0100 #### [facility] [address] [place], [address] IG% 0.500 Normal 0.0-0.9 [facility] Comment on above: Result Comment: IG% - Immature Granulocytes (promyelocytes, myelocytes and metamyelocytes) > 1% indicates that a LEFT SHIFT is Present. Performed By: #### L 500.4050, L501.2450, L503.6005, L100.0100 #### [facility] [address] [place], [address] Lymphocytes/100 WBC (Bld) 18.7 % Low 19-41 [facility] Comment on above: Performed By: #### L 500.4050, L501.2450, L503.6005, L100.0100 #### [facility] [address] [place], [address] MCH (RBC) [Entitic mass] 29.5 pg Normal 27.0-32.0 [facility] Comment on above: Performed By: #### L 500.4050, L501.2450, L503.6005, L100.0100 #### [facility] [address] [place], [address] MCHC (RBC) [Mass/Vol] 35.0 g/dL Normal 32-36 [facility] [facility] Comment on above: Performed By: #### L 500.4050, L501.2450, L503.6005, L100.0100 #### [facility] [address] [place], [address] MCV (RBC) [Entitic vol] 84.2 fL Normal 80-94 [facility] Comment on above: Performed By: #### L 500.4050, L501.2450, L503.6005, L100.0100 #### [facility] [address] [place], [address] Monocytes/100 WBC (Bld) 5.3 % Normal 0-10 [facility] Comment on above: Performed By: #### L 500.4050, L501.2450, L503.6005, L100.0100 #### [facility] [address] [place], [address] Neutrophils/100 WBC (Bld) 74.4 % High 47-70 [facility] Comment on above: Performed By: #### L 500.4050, L501.2450, L503.6005, L100.0100 #### [facility] [address] [place], [address] Nucleated RBC (Bld) [#/Vol] 0 10*3/uL Normal 0-5 [facility] Comment on above: Performed By: #### L 500.4050, L501.2450, L503.6005, L100.0100 #### [facility] [address] [place], [address] Platelet mean volume (Bld) [Entitic vol] 9.8 fL Normal 6.2-12.0 [facility] Comment on above: Performed By: #### L 500.4050, L501.2450, L503.6005, L100.0100 #### [facility] [address] [place], [address] Platelets (Bld) [#/Vol] 421 10*3/uL Normal 150-450 [facility] Comment on above: Performed By: #### L 500.4050, L501.2450, L503.6005, L100.0100 #### [facility] [address] [place], [address] RBC (Bld) [#/Vol] 5.19 10*6/uL Normal 4.6-6.2 [facility] Comment on above: Performed By: #### L 500.4050, L501.2450, L503.6005, L100.0100 #### [facility] [address] [place], [address] RDW SD 41.2 fl Normal 35.1-43.9 [facility] Comment on above: Performed By: #### L 500.4050, L501.2450, L503.6005, L100.0100 #### [facility] [address] [place], [address] WBC (Bld) [#/Vol] 22.0 10*3/uL High 4.4-11.0 [facility] Comment on above: Performed By: #### L 500.4050, L501.2450, L503.6005, L100.0100 #### [facility] [address] [place], [address] Carbon dioxide, total [Moles /volume] in Central venous bloodOrdered By: Isis De Jesus on 08-27-2024 CO2 [Moles/Vol] 20.9 mmol/L Low 21.0-32.0 [facility] Chloride assayOrdered By: Benedict De Jesus on 08-27-2024 Chloride [Moles/Vol] 100 mmol/L 98-108 [facility] Comprehensive Metabolic Prof ilon 08-27-2024 Albumin [Mass/Vol] 4.4 g/dL Normal 3.5-5.0 [facility] Comment on above: Performed By: #### L 500.4050, L501.2450, L503.6005, L100.0100 #### [facility] [address] [place], [address] Albumin/Globulin [Mass ratio] 1.4 {ratio} Normal 0.9-2.4 [facility] Comment on above: Performed By: #### L 500.4050, L501.2450, L503.6005, L100.0100 #### [facility] [address] [place], [address] ALK PHOS 129 U/L Normal 40-129 [facility] Comment on above: Performed By: #### L 500.4050, L501.2450, L503.6005, L100.0100 #### [facility] [address] [place], [address] ALT [Catalytic activity/Vol] 14 U/L Normal <=46 [facility] Comment on above: Performed By: #### L 500.4050, L501.2450, L503.6005, L100.0100 #### [facility] [address] [place], [address] AST [Catalytic activity/Vol] 29 U/L Normal <=37 [facility] Comment on above: Performed By: #### L 500.4050, L501.2450, L503.6005, L100.0100 #### [facility] [address] [place], [address] Bilirubin [Mass/Vol] 0.45 mg/dL Normal 0.00-1.30 [facility] Comment on above: Performed By: #### L 500.4050, L501.2450, L503.6005, L100.0100 #### [facility] [address] [place], [address] BUN/CRE 6.1 RATIO Low 10-20 [facility] Comment on above: Performed By: #### L 500.4050, L501.2450, L503.6005, L100.0100 #### [facility] [address] [place], [address] Calcium [Mass/Vol] 9.6 mg/dL Normal 7.6-11.0 [facility] Comment on above: Performed By: #### L 500.4050, L501.2450, L503.6005, L100.0100 #### [facility] [address] [place], [address] Chloride [Moles/Vol] 100 mmol/L Normal 98-108 [facility] Comment on above: Performed By: #### L 500.4050, L501.2450, L503.6005, L100.0100 #### [facility] [address] [place], [address] CO2 [Moles/Vol] 20.9 mmol/L Low 21.0-32.0 [facility] Comment on above: Performed By: #### L 500.4050, L501.2450, L503.6005, L100.0100 #### [facility] [address] [place], [address] Creatinine [Mass/Vol] 0.96 mg/dL Normal 0.70-1.20 [facility] Comment on above: Performed By: #### L 500.4050, L501.2450, L503.6005, L100.0100 #### [facility] [address] [place], [address] ECRCL 105.24 ml/min Normal 50-250 [facility] Comment on above: Performed By: #### L 500.4050, L501.2450, L503.6005, L100.0100 #### [facility] [address] [place], [address] GAP 18 High 5-15 [facility] Comment on above: Performed By: #### L 500.4050, L501.2450, L503.6005, L100.0100 #### [facility] [address] [place], [address] GFR/1.73 sq M.predicted among non-blacks MDRD (S/P/Bld) [Vol rate/Area] 93 mL/min/{1.73_m2} Normal >60 [facility] Comment on above: Result Comment: mL/m in/1.73m2 CKD-EPI Creatinine Equation (2020) Performed By: #### L 500.4050, L501.2450, L503.6005, L100.0100 #### [facility] [address] [place], [address] Globulin (S) [Mass/Vol] 3.2 g/dL Normal 2.2-4.2 [facility] Comment on above: Performed By: #### L 500.4050, L501.2450, L503.6005, L100.0100 #### [facility] [address] [place], [address] Glucose [Mass/Vol] 99 mg/dL Normal 70-99 [facility] Comment on above: Performed By: #### L 500.4050, L501.2450, L503.6005, L100.0100 #### [facility] [address] [place], [address] Potassium [Moles/Vol] 3.4 mmol/L Normal 3.3-5.1 [facility] Comment on above: Performed By: #### L 500.4050, L501.2450, L503.6005, L100.0100 #### [facility] [address] [place], [address] Sodium [Moles/Vol] 139 mmol/L Normal 133-145 [facility] Comment on above: Performed By: #### L 500.4050, L501.2450, L503.6005, L100.0100 #### [facility] [address] [place], [address] T PROT 7.5 g/dL Normal 5.9-8.4 [facility] Comment on above: Performed By: #### L 500.4050, L501.2450, L503.6005, L100.0100 #### [facility] [address] [place], [address] Urea nitrogen [Mass/Vol] 6 mg/dL Normal 4-19 [facility] Comment on above: Performed By: #### L 500.4050, L501.2450, L503.6005, L100.0100 #### [facility] [address] [place], [address] Emergency Department Summary on 08-27-2024 Emergency Department Summary [facility] Medical Records Department [address] [place] [address] Emergency Department Summary 08/27/24 MR#: [id number] Acct: [id number] Name: MIKE HATCH Rep #: [id number] : 1970 54 From: Isis De Jesus DO PCP: [facility] [place] [facility]- HPI HPI - GI History of Present Illness Chief Complaint: Abd Pain Informant: patient Narrative Narrative: Patient is a 54-year-old male with history of spinal stenosis and back pain, alcohol abuse, schizophrenia, autism and nicotine use presenting from home for abdominal pain, nausea and vomiting. Patient states about 11 PM last night he coughed and suddenly felt a bulge in his bellybutton area. He had pain there. He had pain throughout the night in that area but now intermittently radiates up into his chest. He has had associated nausea and vomiting. He is concerned that his insides are black because his vomit has been dark. Does think he has passed gas today but is more unsure about that. Denies any known history of hernia. Has not been able to eat or drink anything today. Last ate yesterday evening. No other complaints or concerns at this time. Denies any abdominal surgical history. [facility] Medical History Nicotine vapor product user Anxiety and depression Cannabis abuse Autism Schizophrenia Tobacco use History of alcohol abuse Alcohol abuse Cataract (lens) fragments in eye following cataract surgery, bilateral Home Medications ???Medication ???Instructions ???Recorded ???Last Taken ???Type brexpiprazole 2 mg tablet (Rexulti) 2 mg PO DAILY 11/23/21 08/26/24 History fluoxetine 40 mg capsule 80 cap PO DAILY 11/23/21 08/26/24 History methylphenidate HCl 20 mg tablet 20 tab PO TID 11/23/21 08/26/24 Hi story (Ritalin) cholecalciferol (vitamin D3) 50 50 mcg PO DAILY 10/02/22 08/26/24 History mcg (2,000 unit) capsule (Vitamin D3) omega 8-cad-rya-fish oil 1,000 mg 1 cap PO BID 10/02/22 08/26/24 Hi story (120 mg-180 mg) capsule zolpidem 10 mg tablet 10 mg PO QPM 10/20/23 08/26/24 His tory prazosin 1 mg capsule 3 mg PO QHS 01/01/24 08/26/24 Hist ory tizanidine 4 mg tablet 4 mg PO QHS 01/01/24 08/26/24 Hist ory Allergy/AdvReac Type Severity Reaction Status Date / Time No Known Allergies Allergy Verified 08/27/24 10:21 Family History Mother COPD (chronic obstructive pulmonary disease) Hypertension Diabetes Father Hypertension Alcohol abuse Surgical History History of shoulder surgery History of tonsillectomy and adenoidectomy H/O cataract removal with insertion of prosthetic lens Social History household members: friend(s) Smoking Status: Current some day smoker tobacco type: cigarettes and e-cigarettes Electronic Cigarette Use: with nicotine how long ago did patient quit smoking: Cigarette->vaping several yrs, uses heavy. alcohol intake: current alcohol intake frequency: 3 or more drinks per day details: Reports binging history. substance use type: marijuana ROS ROS ED Constitutional Constitutional ED: Reports sweats; Denies fever(s) Cardiovascular Cardiovascular: Denies chest pain Respiratory/Chest Respiratory/Chest: Denies cough Gastrointestinal Gastrointestinal: Reports abdominal pain, nausea and vomiting Musculoskeletal Musculoskeletal: Denies back pain Integumentary Denies rash Neurologic Neurologic: Denies weakness Psychiatric Psychiatric: Reports anxiety Hematologic/Lymphatic Hematologic/Lymphatic: Denies easy bleeding or easy bruising EXAM Physical Exam Const Vital Signs: 08/27/24 10:21 08/27/24 11:20 08/27/24 12:00 Temperature 98.0 F Temperature Source Oral Pulse Rate 74 65 Respiratory Rate 24 H 18 Blood Pressure 138/75 H 135/73 H 141/69 H Blood Pressure Mean 96 93 93 Pulse Ox 99 94 Oxygen Delivery Method Room Air Room Air 08/27/24 13:00 08/27/24 13:25 08/27/24 14:12 Temperature 98 F 98 F Temperature Source Pulse Rate 65 62 62 Respiratory Rate 16 16 Blood Pressure 139/77 H 139/77 H 139/77 H Blood Pressure Mean 97 97 Pulse Ox 94 94 94 Oxygen Delivery Method Room Air Room Air Positive well nourished, well developed and unkempt Constitutional Narrative: Uncomfortable. General Appearance ED: unkempt and well developed HEENT Reports dry mucous membranes Mouth ED: Yes dry mucous membranes Mouth: dry mucous membranes Eyes PERRL Resp normal respiratory effort and clear to auscultation bilaterally Cardio regular rate and regular rhythm GI GI Narrat (more content not included)... Normal [facility] Eosinophil percentageOrdered By: Isis De Jesus on 08-27-2024 Eosinophils/100 WBC (Bld) 0.4 % 0-5 [facility] Erythrocyte distribution wid th ratioOrdered By: Isis De Jesus on 08-27-2024 Erythrocyte distribution width (RBC) [Ratio] 13.4 % 11.6-14.6 [facility] Erythrocyte distribution wid th standard deviationOrdered By: Isis De Jesus on 08-27-2024 Erythrocyte distribution width (RBC) [Ratio] 41.2 fl 35.1-43.9 [facility] Glomerular filtration rate ( GFR) estimation/1.73 sq m using serum, plasma, or whole bOrdered By: Isis De Jesus on 08-27-2024 GFR/1.73 sq M.predicted among non-blacks MDRD (S/P/Bld) [Vol rate/Area] 93 mL/min/{1.73_m2} >60 [facility] Comment on above: mL/min/1.73m2 CKD-EP I Creatinine Equation (2020) [facility] deOrdered By: Demetrius Hernández on 08-27-2024 Glucose [Mass/Vol] 130 mg/dL High 74-106 [facility] Comment on above: MANAGEMENT OF PATIEN T CARE PER NURSING PROTOCOL H AND P Exam - Surgicalon H&P Exam - Surgical [facility] Medical Records Department [address] [place] [address] H P Exam - Surgical 08/27/24 1259 MR#: [id number] Acct: [id number] Name: MIKE HATCH Rep #: [id number] : 1970 54 From: Demetrius Hernández MD PCP: [facility] Status:REG ER Location: ED HPI - General HPI Narrative MIKE HATCH, is a 54 M who presents with painful umbilical hernia. The patient reports that he has had an umbilical hernia for years but something more popped out yesterday during a coughing fit and has been very painful ever since. Patient reports nausea as well as vomiting. He denies fevers or chills. [facility] Medical History Nicotine vapor product user Anxiety and depression Cannabis abuse Autism Schizophrenia Tobacco use History of alcohol abuse Alcohol abuse Cataract (lens) fragments in eye following cataract surgery, bilateral Home Medications ???Medication ???Instructions ???Recorded ???Last Taken ???Type brexpiprazole 2 mg tablet (Rexulti) 2 mg PO DAILY 11/23/21 Unknown History fluoxetine 40 mg capsule 80 cap PO DAILY 11/23/21 Unknown H istory methylphenidate HCl 20 mg tablet 20 tab PO TID 11/23/21 Unknown His tory (Ritalin) cholecalciferol (vitamin D3) 50 50 mcg PO DAILY 10/02/22 Unknown H istory mcg (2,000 unit) capsule (Vitamin D3) omega 0-xmz-jlp-fish oil 1,000 mg 1 cap PO BID 10/02/22 Unknown His tory (120 mg-180 mg) capsule trazodone 100 mg tablet 100 mg PO QHS PRN Sleep 10/02/22 U nknown History zolpidem 10 mg tablet 10 mg PO QPM 10/20/23 Unknown Hist ory prazosin 1 mg capsule 3 mg PO QHS 01/01/24 Unknown Histo ry tizanidine 4 mg tablet 4 mg PO QHS 01/01/24 Unknown Histo ry Allergy/AdvReac Type Severity Reaction Status Date / Time No Known Allergies Allergy Verified 08/27/24 10:21 Family History Mother COPD (chronic obstructive pulmonary disease) Hypertension Diabetes Father Hypertension Alcohol abuse Surgical History History of shoulder surgery History of tonsillectomy and adenoidectomy H/O cataract removal with insertion of prosthetic lens Social History household members: friend(s) Smoking Status: Current some day smoker tobacco type: cigarettes and e-cigarettes Electronic Cigarette Use: with nicotine how long ago did patient quit smoking: Cigarette->vaping several yrs, uses heavy. alcohol intake: current alcohol intake frequency: 3 or more drinks per day details: Reports binging history. substance use type: marijuana Vital Signs Vital Signs Vital Signs: 08/27/24 10:21 08/27/24 11:20 Temperature 98.0 F Temperature Source Oral Pulse Rate 74 65 Respiratory Rate 24 H 18 Blood Pressure 138/75 H 135/73 H Blood Pressure Mean 96 93 Pulse Ox 99 94 Oxygen Delivery Method Room Air Room Air Weight Weight: 235 lb 14.314 oz Body Mass Index (BMI) 33.8 Physical Exam Const oriented x3 and no apparent distress Resp normal respiratory effort GI soft to palpation Palpation: tender Results Lab / Micro Data 08/27/24 10:30 08/27/24 10:30 Labs: Laboratory Results - last 24 hr 08/27/24 10:30: WBC 22.0 H, RBC 5.19, Hgb 15.3, Hct 43.7, MCV 84.2, MCH 29.5, MCHC 35.0, RDW Std Deviation 41.2, RDW Coeff of Danish 13.4, Plt Count 421, MPV 9.8, Immature Gran % (Auto) 0.500, Neut % (Auto) 74.4 H, Lymph % (Auto) 18.7 L, [place] % (Auto) 5.3, Eos % (Auto) 0.4, Baso % (Auto) 0.7, A bsolute Neuts (auto) 16.4 H, Absolute Lymphs (auto) 4.11, Nucleated RBC % 0, Sodium 139, Potassium 3.4, Chloride 100, Carbon Dioxide 20.9 L, Anion Gap 18 H, BUN 6, Creatinine 0.96, Estim Creat Clear Calc 105.24, Est GFR (MDRD) Non-Af 93, BUN/Creatinine Ratio 6.1 L, Glucose 99, Calcium 9.6, Total Bilirubin 0.45, AST 29, ALT 14, Alkaline Phosphatase 129, Total Protein 7.5, Albumin 4.4, Globulin 3.2, Albumin/Globulin Ratio 1.4, Lipase 23 Imaging Radiology Impression Abdomen/Pelvis CT 08/27/24 11:27 IMPRESSION: 1. Small umbilical hernia containing fat and a short segment of minimally dilated small bowel. Given two transition points associated with the entry and exit from the hernia sac, early closed loop obstruction is possible. Mild upstream intraperitoneal small-bowel dilatation suggests associated early simple mechanical small-bowel obstruction. Recommend surgical consultation. 2. Trace subcutaneous inflammatory changes surrounding the hernia sac are nonspecific; correlate for the clinical diagnosis of bowel strangulation. 3. Mild bladder wall thickening versus underdistention. Correlate for cystitis. 4. B (more content not included)... Normal [facility] Hematocrit Auto (Bld) [Volum e fraction]Ordered By: Isis De Jesus on 08-27-2024 Hematocrit (Bld) [Volume fraction] 43.7 % 40-54 [facility] Hemoglobin measurementOrdere d By: Isis De Jesus on 08-27-2024 Hemoglobin (Bld) [Mass/Vol] 15.3 g/dL 13.0-16.5 [facility] Immature granulocytes/100 WB C Auto (Bld)Ordered By: Isis De Jesus on 08-27-2024 Immature granulocytes/100 WBC (Bld) 0.500 % 0.0-0.9 [facility] Comment on above: IG% - Immature Granu locytes (promyelocytes, myelocytes and metamyelocytes) > 1% indicates that a LEFT SHIFT is Present. Laboratory - Chemistry and C hemistry - challengeOrdered By: Isis De Jesus on 08-27-2024 AST [Catalytic activity/Vol] 29 U/L <38 [facility] Lactic Acidon 08-27-2024 Lactate [Moles/Vol] 1.4 mmol/L Normal 0.0-2.0 [facility] Comment on above: Performed By: #### L 503.6005 ####[facility] [id number] [place], [place], [id number] Lactate [Moles/Vol] 3.9 mmol/L Invalid Interpretation Code 0.0-2.0 [facility] Comment on above: Order Comment: Y Result Comment: Crit ical Result(s) Called to Yun ALAVRADO (ER): by Ozzie:??Results read back by same. Performed By: #### L 500.4050, L501.2450, L503.6005, L100.0100 #### [facility] [address] [place], [place], [id number] Lactic acid measurementOrder ed By: Isis De Jesus on 08-27-2024 Lactate [Moles/Vol] 1.4 mmol/L 0.0-2.0 [facility] Lactate [Moles/Vol] 3.9 mmol/L High 0.0-2.0 [facility] Comment on above: Critical Result(s) C alled to Yun ALVARADO (ER): by Ozzie: Results read back by same. Lipaseon 08-27-2024 Lipase [Catalytic activity/Vol] 23 U/L Normal 13-75 [facility] Comment on above: Result Comment: Irwin hernandez note: LIPASE revised reference range effective 22. New Lipase methodology. Expected to produce lower values than the previous assay method. NEW Reference Range: 13 - 75 U/L Performed By: #### L 500.4050, L501.2450, L503.6005, L100.0100 #### [facility] [address] [place], [address] Lipase measurementOrdered By : Isis De Jesus on 08-27-2024 Lipase [Catalytic activity/Vol] 23 U/L 13-75 [facility] Comment on above: Please note:LIPASE r evised reference range effective 22. New Lipase methodology. Expected to produce lower values than the previous assay method. NEW Reference Range: 13 - 75 U/L MCV (mean corpuscular volume ) determinationOrdered By: Isis De Jesus on 08-27-2024 MCV (RBC) [Entitic vol] 84.2 fL 80-94 [facility] MR/POSTOP.ANE 08-27-2024 MR/POSTOP.[facility] Medical Records Department [address] [place] [address] Anesthesia Postop Eval I 08/27/24 163 MR#: [id number] Acct: [id number] Name: MIKE HATCH Rep #: [id number] : 1970 54 From: Alva Walker PCP: [facility] Status:REG SDC Y Race: C Location: [place] [address] Anesthesia: Postop Eval I Current Vital Signs Temperature: 97 F Pulse Rate: 65 Blood Pressure: 128/57 Respiratory Rate: 20 Pulse Ox: 94 Assessment Airway patent: Yes Spontaneous unlabored respirations: Yes nausea: No Vomiting: No Anesthesia Complication: No Fluid Hydration Crystalloid volume administer (ml): 1,200 Total IV fluid infused: 1,200 Progress Note Anesthesia document: Postop Eval 1 completed: Yes 08/27/24 163 Date Alva Walker Cosigner Signature: Date CC: Signed Normal [facility] MR/[id number] 08-27-2024 MR/POSTOPAN2 [facility] Medical Records Department [address] [place] [address] Anesthesia Postop Eval II 08/27/24 170 MR#: [id number] Acct: [id number] Name: MIKE HATCH Rep #: [id number] : 1970 54 From: Ashutosh Wilkerson MD [facility] Status:[place] [facility] [place] Race: C [facility]: [facility] Anesthesia Postop Eval I Sum Postop Eval Completion status Anesthesia document: Postop Eval 1 completed: Yes Anesthesia Postop Eval I Summary Anesthesia Postop Eval I Summary: Anesthesia Postop Eval I: Assessment Summary Airway patent Yes 08/27/24 16:39 [employer]IO [employer]TEN[employer] INST[employer].CSIR Spontaneous unlabored Yes 08/27/24 16:39 [employer]IO [employer]CSIR respirations Mental status nausea No 08/27/24 16:39 [employer]IO [employer]CSIR Vomiting No 08/27/24 16:39 [employer]IO [employer] IN[employer].CSIR Anesthesia Postop Eval I: Fluid Summary Crystalloid volume administer 1,200 08/27/24 16:39 RADIO ANTENNA INST[employer]ER.CSIR (ml) Colloids volume administered ( ml) Blood Product volume administered (ml) Total IV fluid infused 1,200 08/27/24 16:39 [employer]IO [employer] INST[employer].CSIR Anesthesia Postop Eval I: Summary Notes Anesthesia Complication No 08/27/24 16:39 RADIO ANTENNA INST[employer]ER.CSIR Anesthesia Complication Comment: Post-operative progress note Anesthesia: Postop Eval II Evaluation Mental status: Awake Pain Level: 0 nausea: No Vomiting: No Complications Anesthesia Complication: No 08/27/241699 Date Ashutosh Wilkerson MD Cosigner Signature: Date CC: Signed Normal [facility] Mean corpuscular hemoglobin (MCH) determinationOrdered By: Isis De Jesus on 08-27-2024 MCH (RBC) [Entitic mass] 29.5 pg 27.0-32.0 [facility] Mean corpuscular hemoglobin concentration (MCHC) determinationOrdered By: Isis De Jesus on 08-27-2024 MCHC (RBC) [Mass/Vol] 35.0 g/dL 32-36 [facility] Mean platelet volume determi nationOrdered By: Isis De Jesus on 08-27-2024 Platelet mean volume (Bld) [Entitic vol] 9.8 fL 6.2-12.0 [facility] Monocyte percentageOrdered B y: Isis De Jesus on 08-27-2024 Monocytes/100 WBC (Bld) 5.3 % 0-10 [facility] Neutrophil percentageOrdered By: Isis De Jesus on 08-27-2024 Neutrophils/100 WBC (Bld) 74.4 % High 47-70 [facility] Nucleated red blood cell per centageOrdered By: Isis De Jesus on 08-27-2024 Nucleated RBC/100 WBC (Bld) [Ratio] 0 % 0-5 [facility] Operative Reporton Operative Report [facility] Medical Records Department [address] [place] [address] Operative Report 08/27/24 1611 MR#: [id number] Acct: [id number] Name: MIKE HATCH Rep #: [id number] : 1970 54 From: Demetrius Hernández MD PCP: [facility] Status:[facility] (Standard) Operative Information Date of Procedure: 08/27/24 Pre-Operative Diagnosis: Incarcerated umbilical hernia Post-Operative Diagnosis: Incarcerated umbilical hernia with small bowel necrosis Surgery/Procedure Performed: Umbilical hernia repair with small bowel resection mattress filler: Yes Screen Room Operator: Kostohryz,Camilo A Tasks completed by orthodontist assistant: Opening and Closing Type of Anesthesia: General/Regional RN Documented Start/Stop Times: Operation Date: 08/27/24 15:00 Case Time Into Pre-Op 08/27/24 13:39 Out of Pre-Op 08/27/24 15:13 Anesthesia Start 08/27/24 15:15 Into Room 08/27/24 15:15 Procedure Start 08/27/24 15:31 Procedure Start Time: 15:31 Procedure Stop Time: 16:20 Select all DRAINS/GRAFTS/IMPLANTS that apply: None Estimated Blood Loss: 10 Specimen collected: Yes Description of specimen(s) removed: Small bowel segment and hernia sac Description of surgery: Patient was brought back to the operating room and general anesthesia was induced. The abdomen was prepped and draped in usual sterile fashion. A curvilinear incision was marked adjacent to the umbilicus and then incised. The hernia sac was readily encountered. It was removed from the umbilical stalk. It was circumferentially dissected using blunt dissection. Next the hernia sac was opened. The bowel that was within it appeared dusky. The hernia sac was opened completely and then the fascia was opened superiorly and inferiorly to allow for the bowel to be delivered through the incision. It was inspected and the bowel that was stuck in the hernia appeared dusky and did not have any peristalsis. We decided to resect this segment. Using a BRANDON stapler the small bowel was divided proximally and distally to the ischemic segment. LigaSure impact was used to take down the mesentery. The corner was taken off of each staple line and a BRANDON stapler was used to anastomose the small bowel to the small bowel in a ewbl-bh-ngoi functional end to end fashion. The staple line was inspected and the enterostomy was closed with a TX 60 stapler. A crotch suture was placed with 3-0 silk. Several silk sutures were placed on the staple line to maintain hemostasis. Next once there was good hemostasis the bowel was returned to the abdomen. The hernia sac was taken off of the umbilical stalk and sent for pathology. Next the fascia was closed using interrupted sazwnb-lu-jfnil 0 PDS sutures. The subcutaneous tissue was irrigated and suctioned dry and closed with interrupted 3-0 Vicryl sutures and interrupted 4-0 Monocryl sutures. Steri-Strips and bandages were applied. Local anesthesia was injected. Patient was taken to PACU in stable condition and tolerated the procedure well. Surgical Findings: Incarcerated umbilical hernia with strangulation Complications Complications: No Admit VTE Documentation VTE Mechan Device Prophylaxis: SCD's 08/27/24 1617 Cosigner Signature (if applicable): CC: Dr. Demetrius Hernández MD; [facility] Signed Normal [facility] Platelet countOrdered By: Benedict De Jesus on 08-27-2024 Platelets (Bld) [#/Vol] 421 10*3/uL 150-450 [facility] Potassium measurement (mass/ volume)Ordered By: Isis De Jesus on 08-27-2024 Potassium (Unsp spec) [Mass/Vol] 3.4 mmol/L 3.3-5.1 [facility] RBC Auto (Bld) [#/Vol]Ordere d By: Isis De Jesus on 08-27-2024 RBC (Bld) [#/Vol] 5.19 10*6/uL 4.6-6.2 [facility] Serum creatinine measurement (mass/volume)Ordered By: Isis De Jesus on 08-27-2024 Creatinine [Mass/Vol] 0.96 mg/dL 0.70-1.20 [facility] Serum globulin measurementOr dered By: Isis De Jesus on 08-27-2024 Globulin (S) [Mass/Vol] 3.2 g/dL 2.2-4.2 [facility] Serum glucose measurement (m ass/volume)Ordered By: Isis De Jesus on 08-27-2024 Glucose [Mass/Vol] 99 mg/dL 70-99 [facility] Serum or plasma alanine figueredo otransferase (ALT) measurementOrdered By: Isis De Jesus on 08-27-2024 ALT [Catalytic activity/Vol] 14 U/L <47 [facility] Serum or plasma albumin chet urement (mass/volume)Ordered By: Isis De Jesus on 08-27-2024 Albumin [Mass/Vol] 4.4 g/dL 3.5-5.0 [facility] Serum or plasma albumin/glob ulin mass ratioOrdered By: Isis De Jesus on 08-27-2024 Albumin/Globulin [Mass ratio] 1.4 {ratio} 0.9-2.4 [facility] Serum or plasma alkaline scott sphatase measurementOrdered By: Isis De Jesus on 08-27-2024 ALP [Catalytic activity/Vol] 129 U/L 40-129 [facility] Serum or plasma calcium chet urement (mass/volume)Ordered By: Isis De Jesus on 08-27-2024 Calcium [Mass/Vol] 9.6 mg/dL 7.6-11.0 [facility] Serum or plasma urea nitroge n measurement (mass/volume)Ordered By: Isis De Jesus on 08-27-2024 Urea nitrogen [Mass/Vol] 6 mg/dL 4-19 [facility] Sodium levelOrdered By: Kurt De Jesus on 08-27-2024 Sodium [Moles/Vol] 139 mmol/L 133-145 [facility] Surgery Specimen Level IIon 08-27-2024 Surgery Specimen Level II Patient Age/Sex Location Account Attending Physician MIKE HATCH/[place] MS3 [id number] Dr. Demetrius Hernández MD Specimen: [id number] Received: 08/27/24 Status: NICK Anderson Num: [id number] Spec Type: COLON Subm Dr: Dr. Demetrius Hernández MD HEADER OPERATION: Incarcerated umbilical hernia repair, bowel resection PRE-OP DIAGNOSIS: Small umbilical hernia TISSUE SUBMITTED: A- Small bowel segment, B- Umbilical hernia sac MICROSCOPIC DIAGNOSIS A. Small bowel, incarcerated umbilical hernia, partial bowel resection: * Focal mucosal necrosis, vascular congestion, and widespread submucosal edema and acute hemorrhage, consistent with ischemia. * Viable end resection margins. B. Umbilical hernia sac, incarcerated umbilical hernia, repair: * Fibroadipose tissue partially covered by an attenuated mesothelium, consistent with hernia sac. MICROSCOPIC DESCRIPTION Slides are reviewed. GROSS DESCRIPTION A. Received in formalin in a container labeled with the patient's name, date of , and small bowel segment is a partially opened, unoriented segment of small bowel with two stapled margins. The segment is 10.5 cm in length by 2.2 cm in diameter with attached 2.5 cm thickness dusky mesenteric fat. The serosa is notable for a 6.0 cm in length area of purple-brown, dusky discoloration that comes to within 1.5 cm of the first stapled margin and 6.0 cm of the second stapled margin. The remaining serosa is miller-pink, smooth and glistening. The segment is opened to reveal that the mucosa is dusky miller-brown and edematous deep to the discolored serosa. The remaining mucosa is smith-pink, velvety, with typical transverse folds and an average wall thickness of 0.6 cm. No distinct perforation or mass-like lesion is grossly recognized. Received in the same container is a previously disrupted fragment of smith-brown mucosa measuring 4.0 x 3.7 x 1.5 cm. Sectioning reveals an abundance of embedded magali with an average wall thickness of 0.6 cm. Fire Equipment Operator sections: A1. First stapled margin, en faceA2. Second stapled margin, en faceA3-4. Full-thickness sections with dusky mucosa to typical mucosaA5. Unremarkable mucosa with separate disrupted fragment (full-thickness section is not obtained due to embedded magali) B. Received in formalin in a container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 relief. PAST MEDICAL HISTORY Diagnosis Date Adult ADHD Anxiety Depression PAST SURGICAL HISTORY Procedure Laterality Date REMV CATARACT EXTRACAP,INSERT LENS Right 06/09/2021 SN60WF +23.0D REMV CATARACT EXTRACAP,INSERT LENS Left 08/11/2021 SN60WF +21.5D ALLERGIES Patient has no known allergies. MEDICATIONS propylene glycoL (SYSTANE COMPLETE) 0.6 % drop Use 1 Drop in both eyes three times daily. cyclobenzaprine (FLEXERIL) 10 mg tablet Take 1 tablet by mouth three times daily as needed for muscle spasm. prednisoLONE acetate (PRED FORTE, ECONOPRED PLUS) 1 % ophthalmic suspension Use 1 Drop in the left eye four times daily. prazosin (MINIPRESS) 1 mg cap 3 mg daily at bedtime. brexpiprazole (REXULTI) 1 mg tablet FLUoxetine HCl (PROZAC) 40 mg capsule 40 mg. Taking 2 tablets daily methylphenidate (RITALIN) 20 mg tablet three times daily. zolpidem (AMBIEN) 10 mg FAMILY HISTORY Problem Relation Age of Onset No Ocular Disease Mother Lung Cancer Mother No Ocular Disease Father Hyperthyroidism Father Social History Tobacco Use Smoking status: Never Smokeless tobacco: Never Vaping Use Vaping Use: Never used Substance Use Topics Alcohol use: Never Drug use: Never Review of Systems Constitutional: Negative for chills, diaphoresis, fatigue and fever. HENT: Negative for congestion and sore throat. Respiratory: Negative for cough. Cardiovascular: Negative for chest pain. Gastrointestinal: Negative for abdominal pain, anorexia, change in bowel habit, nausea and vomiting. Musculoskeletal: Negative for arthralgias, joint swelling, myalgias and neck pain. Skin: Positive for wound. Negative for rash. Neurological: Negative for vertigo, weakness, numbness and headaches. Objective BP 104/60 Pulse 84 Temp 36.8 ?C (98.2 ?F) (Tympanic) Resp 16 Wt 112.2 kg (247 lb 5.7 oz) SpO2 95% BMI 35.49 kg/m? Physical Exam Vitals and nursing note reviewed. Constitutional: General: He is not in acute distress. Appearance: Normal appearance. He is not ill-appearing, toxic-appearing or diaphoretic. HENT: Head: Normocephalic and atraumatic. Right Ear: External ear normal. Left Ear: External ear normal. Nose: Nose normal. No congestion or rhinorrhea. Mouth/Throat: Mouth: Mucous membranes are moist. Pharynx: Oropharynx is clear. No oropharyngeal exudate or posterior oropharyngeal erythema. Eyes: General: Right eye: No discharge. Left eye: No discharge. Extraocular Movements: Extraocular movements intact. Conjunctiva/sclera: Conjunctivae normal. Pupils: Pupils are equal, round, and reactive to light. Cardiovascular: Rate and Rhythm: Normal rate and regular rhythm. Pulses: Normal pulses. Heart sounds: Normal heart sounds. No murmur heard. No friction rub. No gallop. Pulmonary: Effort: Pulmonary effort is normal. No respiratory distress. Breath sounds: Normal breath sounds. No stridor. No wheezing, rhonchi or rales. Chest: Chest wall: No tenderness. Abdominal: General: Abdomen is flat. There is no distension. Palpations: Abdomen is soft. There is no mass. Tenderness: There is no abdominal tenderness. There is no guarding or rebound. Hernia: No hernia is present. Musculoskeletal: General: Swelling, tenderness and signs of injury present. No deformity. Normal range of mo (more content not included)... Normal [facility] Emergency Department Summary on 10-11-2023 Emergency Department Summary [facility] Medical Records Department [address] [place] [address] Emergency Department Summary 10/11/23 MR#: [id number] Acct: [id number] Name: MIKE HATCH Rep #: [id number] : 1970 53 From: Christian Singleton DO [facility] Status:DEP ER Location: ED HPI History of Present Illness Chief Complaint: Laceration Narrative Narrative: Patient is a 53-year-old male with history of night terrors, anxiety, depression who presents to the emergency department after sustaining an injury while sleeping. Patient sleeps with a knife at his bedside, patient was having a dream when he grabbed a knife, and stabbing his left hand in between the first and second finger on the left hand. Patient is right-handed. Patient states he has full range of motion however the pain is getting severe and he is here for evaluation. [facility] Medical History (Updated 10/11/23 @ 15:32 by JULIO Cisneros) Nicotine vapor product user Anxiety and depression Cannabis abuse Autism Schizophrenia Tobacco use History of alcohol abuse Alcohol abuse Cataract (lens) fragments in eye following cataract surgery, bilateral Home Medications ???Medication ???Instructions ???Recorded ???Last Taken ???Type brexpiprazole 2 mg tablet (Rexulti) 2 tab PO DAILY 11/23/21 Unknown History fluoxetine 40 mg capsule 80 cap PO DAILY 11/23/21 Unknown History methylphenidate HCl 20 mg tablet 20 tab PO TID 11/23/21 Unknown History (Ritalin) prazosin 1 mg capsule 2 mg PO QHS 11/23/21 Unknown History prazosin 1 mg capsule (Minipress) 1 cap PO LUNCH 11/23/21 Unknown History tizanidine 4 mg tablet 4 mg PO DAILY 09/25/22 Unknown History cholecalciferol (vitamin D3) 50 50 mcg PO DAILY 10/02/22 Unknown History mcg (2,000 unit) capsule (Vitamin D3) divalproex 250 mg tablet,delayed 500 mg PO DAILY 10/02/22 Unknown History release divalproex 250 mg tablet,delayed 750 mg PO QHS 10/02/22 Unknown History release hydroxyzine pamoate 50 mg capsule 50 mg PO BID 10/02/22 Unknown History omega 5-bjh-rpz-fish oil 1,000 mg 1 cap PO BID 10/02/22 Unknown History (120 mg-180 mg) capsule quetiapine 100 mg tablet 100 mg PO DAILY 10/02/22 Unknown History quetiapine 100 mg tablet 300 mg PO DAILY 10/02/22 Unknown History trazodone 100 mg tablet 100 mg PO QHS PRN Sleep 10/02/22 Unknown History hydrocodone-acetaminoph en 5-325mg 1 tab PO Q6H PRN PRN Pain 3 days 10/11/23 Unknown Rx 5mg-325mg #6 TABLETS Allergy/AdvReac Type Severity Reaction Status Date / Time No Known Allergies Allergy Verified 10/06/22 19:42 Family History (Updated 04/19/23 @ 19:[address] Helen Villa MD) Mother COPD (chronic obstructive pulmonary disease) Hypertension Diabetes Father Hypertension Alcohol abuse Surgical History History of shoulder surgery History of tonsillectomy and adenoidectomy History of appendectomy H/O cataract removal with insertion of prosthetic lens Social History (Updated 04/19/23 @ 19:[address] Helen Villa MD) household members: friend(s) Smoking Status: Former smoker Electronic Cigarette Use: with nicotine how long ago did patient quit smoking: Cigarette->vaping several yrs, uses heavy. alcohol intake: current alcohol intake frequency: 3 or more drinks per day details: Reports binging history. substance use type: marijuana ROS ROS ED ROS Narrative Constitutional: Negative for fever, chills, weight loss, weakness Eyes: Negative for vision loss, vision change, double vision ENT: Negative for any sore throat, ear pain, congestion Cardiovascular: Negative for any chest pain, tightness, palpitations Respiratory: Negative for any cough, sputum production, hemoptysis, dyspnea, dyspnea on exertion, orthopnea Gastrointestinal: Negative for any abdominal pain, nausea, vomiting, diarrhea, constipation, blood in stool, blood in vomit : Negative for any urinary frequency, dysuria, retention, blood in urine Muscle skeletal: Negative for any neck pain, back pain. Positive for laceration of left hand Neurological: Negative for any headache, syncope, dizziness Skin: Negative for any rashes, itching, abrasions, lacerations Psychiatric: Negative for any depression, anxiety, stress, suicidal ideation, homicidal ideation Hematologic: Negative for any excessive bruising, easy bleeding EXAM Physical Exam Narrative Exam Narrative: Vital signs reviewed. HEET: Head normocephalic atraumatic, TMs clear bilaterally. Posterior pharynx is clear, moist mucous membranes. Nares clear bilaterally. Neck: Supple with no lymphadenopathy or tenderness. No signs of meningismus. Cardiac: Regular rate and rhythm no murmurs gallops or rubs, equal peripheral pulses bilaterally. Respiratory: Lungs cl (more content not included)... Normal [facility] Hand Min 3 Viewson 4 Hand Min 3 Views [facility] Imaging Services [address], [place] [address] Hand Min 3 Views MR#: [id number] Acct: [id number] Name: MIKE HATCH Rep #: [id number] : 1970 M 53 From: Jos rajan MD PCP: [facility] Status: REG ER Study: Hand Min 3 Views Date of Exam: 10/11/23 Exam# [id number] Ordering Dr: Damien Dejesus DATA INTEGRATION DEVELOPER-C [id number] STUDY: X-RAY - LEFT HAND REASON FOR EXAM: Male, 53 years old. Laceration between the first and second digits. TECHNIQUE: 3 view(s) of the hand. COMPARISON: None. FINDINGS: Normal radiocarpal articulation. Normal distal radioulnar joint. Normal visualized carpal bones. Normal carpal articulations Normal carpometacarpal articulation of the thumb. Normal second through fifth carpometacarpal joints. Normal metacarpi. Normal metacarpophalangeal joint of the thumb. Normal interphalangeal joint of the thumb. Normal proximal and distal phalanges of the thumb. Normal metacarpophalangeal joints of the second through fifth fingers. Normal proximal and distal interphalangeal joints of the second through fifth fingers. Normal phalanges of the second through fifth fingers. Soft tissue injury seen in the region of the thenar space. No radiopaque foreign body is seen. RAD/Hand Min 3 Views IMPRESSION: Soft tissue injury in the region of the thenar space. No radiopaque foreign body is seen. No bony abnormalities present. Electronically Signed: Jos Freeman MD at 14:58 EDT , CC: JULIO Dejesus; [facility] General Car Yard Supervisor: Signed Normal [facility] ED Nursing Noteon 08-08-2023 ED Nursing Note Pt waiting for transport back to facility. Paradise Galaviz RN 08/08/23 1118 Normal [facility] ED Provider Noteon ED Provider Note EMERGENCY DEPARTMENT ENCOUNTER Pt Name: Mike Hatch Birthdate 1970 Date of evaluation: 08/08/2023 ED Provider: Marco Granados APRN - DRY MILL OPERATOR I have evaluated this patient on my own, per my scope of practice with an attending physician available for consultation. CHIEF COMPLAINT Chief Complaint Patient presents with Back Pain Pt presents to eD for back pain. Pt states he has been having pain and numbness in his L leg which has now moved to his R leg. Denies incontinence. HISTORY OF PRESENT ILLNESS (Location/Symptom, Timing/Onset, Context/Setting, Quality, Duration, Modifying Factors, Severity) Note limiting factors. I wore appropriate PPE for the entirety of this encounter. HPI Mike Hatch is a 53 y.o. who presents to the emergency department with chief complaint of with low back pain for the last 6 to 7 weeks its gotten progressively worse. Initially it was going down the left leg he was seen here in June, had an ultrasound of the leg that was unremarkable at that time states he is never really had this problem until about 6 to 7 weeks ago. He is not a diabetic no history of IV drug use no fevers or chills no bowel or bladder incontinence or fecal urinary retention, patient states he has to lean over when he walks because of the pain and he is gone from needing no assistive devices to using a walker. States now the pain is going down the right leg, recently saw Dr. Bliss in the office who recommended physical therapy he is already been on steroids the patient states now to the point where he is almost unable to walk because the pain is gotten so severe. Nursing Notes were reviewed. Limitations to history: None Outside historians: None REVIEW OF SYSTEMS Review of Systems Constitutional: Negative for activity change, appetite change, chills and fever. HENT: Negative for congestion, nosebleeds, postnasal drip, sore throat and trouble swallowing. Eyes: Negative for pain and visual disturbance. Respiratory: Negative for cough and shortness of breath. Cardiovascular: Negative for chest pain. Gastrointestinal: Negative for abdominal pain, nausea and vomiting. Genitourinary: Negative for dysuria, flank pain, hematuria, penile discharge, scrotal swelling and testicular pain. Musculoskeletal: Positive for arthralgias, back pain and myalgias. Negative for joint swelling and neck stiffness. Skin: Negative for rash and wound. Neurological: Negative for dizziness, syncope, weakness and light-headedness. Psychiatric/Behavioral: Negative for agitation and confusion. All other systems reviewed and are negative. Pertinent positives and negatives as per HPI. PAST MEDICAL HISTORY No past medical history on file. SURGICAL HISTORY No past surgical history on file. CURRENT MEDICATIONS Previous Medications CONCERTA 18 MG CR TABLET Take 18 mg by mouth every morning. DIVALPROEX (DEPAKOTE) 250 MG EC TABLET Take 250 mg by mouth 2 times daily. FLUOXETINE (PROZAC) 20 MG CAPSULE Take 20 mg by mouth daily. GABAPENTIN (NEURONTIN) 100 MG CAPSULE Take 100 mg by mouth in the morning and 100 mg at noon and 100 mg before bedtime. HYDROXYZINE HCL (ATARAX) 50 MG TABLET Take 50 mg by mouth Once. MAGNESIUM OXIDE 500 MG TABLET Take 500 mg by mouth daily. NICOTINE POLACRILEX (NICORETTE) 4 MG GUM Chew 4 mg daily. REXULTI 2 MG TABLET Take 2 mg by mouth daily. TRAZODONE (DESYREL) 100 MG TABLET Take 100 mg by mouth Nightly. as directed ALLERGIES Patient has no known allergies. FAMILY HISTORY No family history on file. SOCIAL HISTORY Social History Socioeconomic History Marital status: Single SCREENINGS PHYSICAL EXAM ED Triage Vitals [08/08/23 0848] Temp Heart Rate Resp BP 37.2 ?C (98.9 ?F) 72 -- 121/78 SpO2 Temp Source Heart Rate Source Patient Position 95 % Temporal Monitor -- BP Location FiO2 (%) -- -- Physical Exam Vitals and nursing note reviewed. Constitutional: General: He is not in acute distress. Appearance: Normal appearance. He is not ill-appearing or toxic-appearing. HENT: Head: Normocephalic and atraumatic. Right Ear: External ear normal. Left Ear: External ear normal. Mouth/Throat: Mouth: Mucous membranes are moist. Pharynx: Oropharynx is clear. Eyes: Extraocular Movements: Extraocular movements intact. Conjunctiva/sclera: Conjunctivae normal. Pupils: Pupils are equal, round, and reactive to light. Cardiovascular: Comments: Regular rate and rhythm, normal S1-S2, no murmurs noted. Radial pulses 2+ and symmetric. Abdominal: Comments: The abdomen is soft, nondistended and nontender. There is no rebound tenderness or guarding. Bowel sounds are normal. Musculoskeletal: Cervical back: Normal range of motion and neck supple. No rigidity or tenderness. Comments: Midline spinal tenderness noted, no sciatic notch tenderness, 3 out of 5 strength with hip flexion bilaterally 4 out of 5 with knee flexion and ext (more content not included)... Normal [facility] Office Visiton 08-03-2023 Follow-up visit [id number] Katya Hatch 1970 M Date Provider Department Center 08/03/2023 [id number] BLISS [facility] WAD None No family history on file Level of Service:[address] [place] OFFICE/OUTPATIENT NEW LOW MDM 30 MINUTES Reason for Visit and Comments: Back Pain [12] Normal [facility] PATINSon 08-03-2023 PATINS Low Back Exercises Your Care Instructions Here are some examples of typical rehabilitation exercises for your condition. Start each exercise slowly. Ease off the exercise if you start to have pain. Your doctor or physical therapist will tell you when you can start these exercises and which ones will work best for you. How to do the exercises Note: These exercises can help you move easier and feel better. But when you first start doing them, you may have more pain in your back. This is normal. But it is important to pay close attention to your pain during and after each exercise. Keep doing these exercises if your pain stays the same or moves from your leg and buttock more toward the middle of your spine. Pain moving out of your leg and buttock is a good sign. Stop doing these exercises if your pain gets worse in your leg and buttock. Stop if you start to have pain in your leg and buttock that you didn't have before. Be sure to do these exercises in the order they appear. Note how your pain changes before you move to the next one. If your pain is much worse right after exercise and stays worse the next day, do not do any of these exercises. 1. Rest on belly Lie on your stomach, face down, with your head turned to the side. Place your arms beside your body. If this bothers your neck, place your hands, one on top of the other, underneath your forehead. This will help support your head and neck. Try to relax your lower back muscles as much as you can. Continue to lie on your stomach for 2 minutes. If your pain spreads down your leg or increases down your leg, stop this exercise and do not do the next exercises. 2. Press-up Lie on your stomach, face down. Keep your elbows tucked into your sides and under your shoulders. Press your elbows down into the floor to raise your upper back. As you do this, relax your stomach muscles. Allow your back to arch without using your back muscles. Let your low back relax completely as you arch up. Hold this position for 2 minutes. Repeat 2 to 4 times. If your pain spreads down your leg or increases down your leg, stop this exercise and do not do the next exercises. 3. Full press-up Lie on your stomach, face down. Keep your elbows tucked into your sides and under your shoulders. Straighten your elbows, and push your upper body up as far as you can. Allow your lower back to sag. Keep your hips, pelvis, and legs relaxed. Hold this position for 5 seconds, and then relax. Repeat 10 times. Each time, try to raise your upper body a little higher and hold your arms a bit straighter. If your pain spreads down your leg or gets worse down your leg, stop this exercise and do not move to the next exercise. If you can't do this exercise, you may instead try the backward bend exercise that follows. Hamstring stretch 90/90 Hamstring stretch figure 4 Hamstring wall stretch Lie on your back in a doorway, with your good leg through the open door. Slide your affected leg up the wall to straighten your knee. You should feel a gentle stretch down the back of your leg. Do not arch your back. Do not bend either knee. Keep one heel touching the floor and the other heel touching the wall. Do not point your toes. Hold the stretch for at least 1 minute to begin. Then try to lengthen the time you hold the stretch to as long as 6 minutes. Repeat 2 to 4 times. If you do not have a place to do this exercise in a doorway, there is another way to do it: Lie on your back, and bend the knee of your affected leg. Loop a towel under the ball and toes of that foot, and hold the ends of the towel in your hands. Straighten your knee, and slowly pull back on the towel. You should feel a gentle stretch down the back of your leg. Hold the stretch for 60 seconds. Repeat 2 to 4 times. Normal [facility] Progress Noteon 08-03-2023 Progress Note [facility] [address] [place] [address] Dept: [phone] Dept Chief Complaint Patient presents with Back Pain Subjective History of Present Illness: Mike Hatch is a 53 y.o. male who presents today for evaluation of back pain. Location: Low back, mid back, left leg into foot, right leg quad to knee. Onset: 1 month Injury: yes - Friend cracked his back and has been painful since. Work related? no Quality: burning and tingling, numbness. Radiation of symptoms: yes - Left leg low back into foot, right leg quad to knee. Severity: 5/10 at rest and 10/10 at worst Exacerbating factor(s): prolonged standing and climbing/descending stairs, squatting, running, flexion of legs. Relieving factor(s): lying down on right side with pillow between legs. Timing: all day Low back red flags: Metastatic cancer: No Recent trauma: Yes Bowel or bladder incontinence: No Urinary retention: No Progressive lower extremity weakness or sensory loss: Yes Saddle anesthesia: No Spinal surgery in the last year: No IV drug abuse: No Unexplained weight loss: No Immunosuppression: No Chronic steroid use: No Fevers, chills, nights sweats: No Unremitting/rest pain: Yes Imaging to date: X-ray July 2023 Very mild scoliosis, degenerative disc disease L4-L5 mild. Degenerative disc disease L5-S1 moderate. Treatment to date: PT/OT/HEP: At home stretches for the past month. Ice: no Heat: no Medications: Tylenol: yes, helpful NSAIDs: yes, Ibuprofen/Motrin/Advil, helpful, Excedrin. Oral steroids: Medrol Dosepak, helpful. Muscle relaxants: yes, Methocarbamol/Robaxin, helpful was taking previously, helpful, not currently taking. Nerve medications: yes, Gabapentin/Neurontin, helpful Targeted injections: none Assistive devices: none Prior surgery: no Occupation: Unemployed Fall risk assessment: Less than 65, not applicable Objective There were no vitals taken for this visit. Physical Exam: General: Alert, well appearing, no acute distress. Respiratory: Breathing comfortably on room air. No respiratory distress. Skin: Warm, dry, intact. No visible rashes or erythema overlying area of focused exam. Physical Exam Musculoskeletal: Lumbar back: No swelling, deformity, spasms, tenderness or bony tenderness. Negative right straight leg raise test and negative left straight leg raise test. Comments: Strength Testing Hip Flexors (T12-L3) normal strength bilateral, no weakness Quad (L2-L4) normal strength bilateral, no weakness Tibialis Anterior (L4) normal strength bilateral, no weakness Extensor Hallusis Longus (L5) normal strength bilateral, no weakness Peroneus Longus (S1) normal strength bilateral, no weakness Gastroc (S1) normal strength bilateral, no weakness Sensation Testing Lateral Thigh (L1-L2) intact to light touch bilateral, left paresthesia Medial Knee (L3) intact to light touch bilateral, no paresthesia Medial Calf, Medial Foot (L4) intact to light touch bilateral, no paresthesia Lateral Calf, 1st web space (L5) intact to light touch bilateral, left paresthesia Lateral Foot (S1) intact to light touch bilateral, no paresthesia Reflexes Patella (L4) 2+ equal bilaterally Achilles (S1) 2+ equal bilaterally External Notes No pertinent interval updates Labs No results found for: HGBA1C No results found for: CREATININE Imaging Images reviewed with patient today I have personally reviewed the images pertinent to the appointment today EMG/NCT N/A Procedure No procedures completed today Assessment Diagnosis Plan 1. Lumbar pain XR lumbar spine 4-5 view Ambulatory referral to Physical Therapy 2. DDD (degenerative disc disease), lumbar Ambulatory referral to Physical Therapy 3. Lumbar radiculitis Ambulatory referral to Physical Therapy Plan -Discussed with the patient the nature of pain, strain, radiculitis, radiculopathy, spinal stenosis as indicated. -Discussed lumbar imaging results with patient. -Discussed options for activity modification, maintaining a normal level of activity as tolerated, avoiding bed rest. -Discussed possible treatment modalities including PT, muscle relaxants, OTC analgesics including acetaminophen &/or NSAIDs. -Questions answered. -Written patient information provided in the AVS. -Reasons to return discussed with patient, including signs of nerve dysfunction. -We have today selected to proceed with formal physical therapy. Physical therapy will work on muscle range of motion, efficiency, endurance, strength, coordination ,balance and sequencing of neuro-muscular contractions. -Physical therapy will set up the schedule of your visits, how many times a week, and will indicate when follow-up is appropriate. -If the current course does not prove to be effective over the short term future, schedule a follow-up appointment to d (more content not included)... [facility] ED Provider Noteon ED Provider Note EMERGENCY DEPARTMENT ENCOUNTER Pt Name: Mike Hatch Birthdate 1970 Date of evaluation: 07/04/2023 ED Provider: Inocencia Dyer PA-C CHIEF COMPLAINT Chief Complaint Patient presents with Leg Pain Pt presents to ED for L leg pain. Pt states pain started 2 days ago. Pt reports pain moved to knee and calf this morning. HISTORY OF PRESENT ILLNESS (Location/Symptom, Timing/Onset, Context/Setting, Quality, Duration, Modifying Factors, Severity) Note limiting factors. I wore appropriate PPE for the entirety of this encounter. HPI Mike Hatch is a 53 y.o. male who presents to the emergency department for left lower extremity pain onset 3 days ago. Patient states he started to have pain in his the left thigh originally but now he is having pain in his knee down to his calf. Denies history of DVT or PE. Denies thinners. He denies any fever, chills, shortness of breath, chest pain, abdominal pain, nausea vomiting diarrhea, or any no known injury or trauma. Patient has he does have a history of chronic low back pain and stated that 4 days ago someone had cracked his back and is unsure if that is related. Denies loss of bowel or bladder function or saddle anesthesia. Nursing Notes were reviewed. Limitations to history: None Outside historians: None REVIEW OF SYSTEMS Review of Systems 14 systems reviewed, positives and pertinent negatives as per HPI. All other systems were reviewed and are negative. PAST MEDICAL HISTORY History reviewed. No pertinent past medical history. SURGICAL HISTORY History reviewed. No pertinent surgical history. CURRENT MEDICATIONS Previous Medications No medications on file ALLERGIES Patient has no known allergies. FAMILY HISTORY No family history on file. SOCIAL HISTORY Social History Socioeconomic History Marital status: Single SCREENINGS PHYSICAL EXAM ED Triage Vitals [07/04/23 0832] Temp Heart Rate Resp BP 36.7 ?C (98 ?F) 74 22 114/69 SpO2 Temp Source Heart Rate Source Patient Position 95 % Temporal Monitor -- BP Location FiO2 (%) -- -- Physical Exam Vitals and nursing note reviewed. Constitutional: General: He is not in acute distress. Appearance: He is well-developed. HENT: Head: Normocephalic and atraumatic. Eyes: Conjunctiva/sclera: Conjunctivae normal. Cardiovascular: Rate and Rhythm: Normal rate and regular rhythm. Heart sounds: No murmur heard. Pulmonary: Effort: Pulmonary effort is normal. No respiratory distress. Breath sounds: Normal breath sounds. Abdominal: Palpations: Abdomen is soft. Tenderness: There is no abdominal tenderness. Musculoskeletal: General: No swelling, tenderness or signs of injury. Cervical back: Neck supple. Left lower leg: No edema. Comments: Mild tenderness to palpation of the left calf and posterior left knee. Otherwise compartments are soft, nontender. DP and PT pulses are 2+ and intact. Normal strength and sensation. Tenderness to palpation over the bilateral lumbar paraspinal muscles. No bony tenderness or obvious deformities. Skin is clear. Skin: General: Skin is warm and dry. Capillary Refill: Capillary refill takes less than 2 seconds. Neurological: Mental Status: He is alert. Psychiatric: Mood and Affect: Mood normal. DIAGNOSTIC RESULTS RADIOLOGY (Per Emergency Physician): Interpretation per the Radiologist below, if available at the time of this note: Vascular US lower extremity venous duplex left (Results Pending) LABS: Labs Reviewed - No data to display All other labs were within normal range or not returned as of this dictation. EMERGENCY DEPARTMENT COURSE and DIFFERENTIAL DIAGNOSIS/MDM: Vitals: Vitals: 07/04/23 0832 BP: 114/69 Pulse: 74 Resp: 22 Temp: 36.7 ?C (98 ?F) TempSrc: Temporal SpO2: 95% Medications ketorolac (Toradol) injection 30 mg (30 mg IntraMUSCular Given 07/04/23 0952) I independently evaluated the patient with supervising attending physician available as needed for collaboration. In brief, Mike Hatch is a 53 y.o. male who presented to the emergency department for left lower extremity pain onset approximately 3 days ago. Patient arrives to the ED with unremarkable vital signs, heart rate of 74, afebrile, 95% on room air with a blood pressure of 114/69. He denies history of DVT, PE, blood thinners. Suspect that this is musculoskeletal or secondary to his chronic low back pain with sciatica, but will obtain ultrasound to rule out DVT. Differential considerations included muscle strain versus DVT versus acute on chronic low back pain with sciatica. Initial medication included Toradol. Initial workup includes ultrasound left lower extremity. Other workup considerations included x-ray but do not feel this is necessary at this time as there was no injury or trauma I do not feel that the benefit would outweigh the risk. This appears to be musculoskeletal versus DVT versus (more content not included)... Normal [facility] No Panel Informationon 07-03 Contralateral imagin g of the right common femoral vein was normal. No evidence of deep vein and superficial thrombosis in the left lower extremity. Right Lower Venous For comparison purposes, the right common femoral vein was briefly interrogated. The vein demonstrates normal color filling and compressibility. Doppler flow was phasic and spontaneous. Left Lower Venous No evidence of deep vein and superficial thrombosis in the left lower extremity. Preliminary Report Preliminary report called to Inocencia Dyer PA-C on 07/04/2023 at 11:38 EDT. Fire Loss Prevention Engineer Details A miller scale, color Doppler imaging and spectral Doppler analysis ultrasound was performed. During the study longitudinal and transverse views were obtained. Pulsed wave doppler was performed. The exam was performed with the patient in the supine position. Overall the study quality was adequate. [facility] XR Foot - bilateral 3 Viewso n 06-17-2023 No evidence of acute osseous abnormality bilaterally. Report Dictated on Electronically Signed By: Alonso Lepe MD Electronically Signed Date/Time: 06/17/2023 2:00 PM EST [facility] Patient Name: MIKE HATCH : 1970 Exam Date/Time: 06/14/2023 14:25 Procedure: XR FOOT 3+ VIEWS BILATERAL Ordering Provider: CUEVAS JON Reason For Exam: M77.31 M77.32 M79.671 M79.672 BILATERAL FEET: CLINICAL INDICATION: Pain. TECHNIQUE: AP, Lat, Oblique views of both feet COMPARISON: None. FINDINGS: Right foot: No evidence of acute fracture or dislocation. Mild degenerative changes of the first MTP joint and the midfoot. The soft tissues appear unremarkable. Left foot: No evidence of acute fracture or dislocation. Mild degenerative changes of the first MTP joint and the midfoot. The soft tissues appear unremarkable. [facility] Alonso Lepe MD - 06/17/2023 Patient Name: MIKE HATCH : 1970 Exam Date/Time: 06/14/2023 14:25 Procedure: XR FOOT 3+ VIEWS BILATERAL Ordering Provider: CUEVAS JON Reason For Exam: M77.31 M77.32 M79.671 M79.672 BILATERAL FEET: CLINICAL INDICATION: Pain. TECHNIQUE: AP, Lat, Oblique views of both feet COMPARISON: None. FINDINGS: Right foot: No evidence of acute fracture or dislocation. Mild degenerative changes of the first MTP joint and the midfoot. The soft tissues appear unremarkable. Left foot: No evidence of acute fracture or dislocation. Mild degenerative changes of the first MTP joint and the midfoot. The soft tissues appear unremarkable. IMPRESSION: No evidence of acute osseous abnormality bilaterally. Report Dictated on Electronically Signed By: Alonso Lepe MD Electronically Signed Date/Time: 06/17/2023 2:00 PM EST [facility] XR Foot - bilateral 3 ViewsO rdered By: Alonso Lepe on 06-17-2023 [facility] Work Phone: XR Foot - bilateral 3 Viewso n 06-14-2023 Radiology Study observation (narrative) [facility] ED Nursing Noteon 06-01-2023 ED Nursing Note Patient presents to ED with c/o b/l heel pain, states it has been on going x1 week. At rest pain is rated 2-3/10, when up and moving pain is 8-9/10. When patient sits or sleeps and gets up the pain is severe. States once he is up moving the pain decreases. Patient is on feet a lot and moving all day long. Asked patient what type of shoes he wears and he said cheap ones, pointed to his feet. They are AND 1 shoes. A&Ox4 Breathing with ease of respirations on room air. Denies any additional needs at this time. Discussed importance of solid shoes, with good support. Patient verbalized understanding. Teri Reyes RN 06/01/23 1140 Normal [facility] ED Provider Noteon 4 ED Provider Note Emergency Department Encounter Pt Name: Mike Hatch Birthdate 1970 Date of evaluation: 06/01/2023 Provider: OLIVA RIOS MD CHIEF COMPLAINT Chief Complaint Patient presents with ? Foot Pain Pt. Endorses 8 day hx of bilateral heel pain without relief from OTC tx. Pt. Denies any recent injury or wounds to the area. HISTORY OF PRESENT ILLNESS HPI Mike Hatch is a 53 y.o. 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 Occasionally has tingling of the bilateral toes when he lays down. Otherwise no other symptoms. No fever or chills. No injury or trauma. He says that because he does not have a PCP, he was sent from [facility] here for evaluation. Has been taking Tylenol and ibuprofen without improvement. Nursing Notes were reviewed. No past medical history on file. REVIEW OF SYSTEMS Several elements of the ROS reviewed and otherwise acutely negative except as in the HPI. PHYSICAL EXAM ED Triage Vitals [06/01/23 1117] Temp Heart Rate Resp BP (!) 35.9 ?C (96.7 ?F) 71 18 126/54 SpO2 Temp Source Heart Rate Source Patient Position 98 % Temporal Monitor -- BP Location FiO2 (%) -- -- Physical Exam Cardiovascular: Rate and Rhythm: Normal rate and regular rhythm. Comments: 2+ DP pulses BL Musculoskeletal: General: No swelling. Right lower leg: No edema. Left lower leg: No edema. Comments: Mild tenderness over plantar surface of the bilateral calcanei but no other calcaneal tenderness or tenderness of the BL LE. Normal active ROM of the bilateral ankles. Skin: General: Skin is warm and dry. Comments: No rash/erythema/cyanosis/ echymoses of the feet Neurological: Mental Status: He is alert. Comments: Strength 5/5 with bilateral ankle and toes dorsiflexion/plantarfle xion. Sensation to light touch intact. Psychiatric: Mood and Affect: Mood normal. EMERGENCY DEPARTMENT COURSE and DIFFERENTIAL DIAGNOSIS/MDM: Patient here for bilateral heel pain, possible plantar fasciitis. I do not suspect fracture. He has no evidence of septic arthritis or cellulitis or other infection. He has good pulses into the feet. He has no swelling or erythema to suggest a venous thrombosis. I will refer the patient to podiatry. Suggest trying naproxen with food instead of ibuprofen. Patient provided ED return precautions. Diagnoses as of 06/01/23 1244 Heel pain, bilateral DISPOSITION/PLAN Discharge 06/01/2023 12:29:19 PM PATIENT REFERRED TO: No follow-up provider specified. DISCHARGE MEDICATIONS: New Prescriptions NAPROXEN (NAPROSYN) 500 MG TABLET Take 1 tablet (500 mg) by mouth 2 times daily as needed (pain) for up to 14 days. Oliva Rios MD Emergency Medicine Oliva Rios MD 06/01/23 1716 Normal [facility] Absolute lymphocyte countOrd ered By: Helen Villa on 12-29-2023 Lymphocytes Auto (Unsp spec) [#/Vol] 2.08 10*3/uL 0.83-4.51 [facility] Basophil percentageOrdered B y: White on 04-20-2023 Basophils/100 WBC (Bld) 1.1 % 0-1 [facility] Bilirubin [Mass/Vol] 0.40 mg/dL 0.20-1.00 [facility] Comment on above: For patients on eltr ombopag therapy, use of Dimension Meally TBIL is not recommended. Chloride [Moles/Vol] 114 mmol/L 98-107 [facility] Eosinophils/100 WBC (Bld) 5.8 % 0-5 [facility] Glucose [Mass/Vol] 94 mg/dL 74-106 [facility] Neutrophils (Bld) [#/Vol] 4.7 10*3/uL 2.0-7.7 [facility] Neutrophils/100 WBC (Bld) 57.3 % 47-70 [facility] Potassium [Moles/Vol] 3.9 mmol/L 3.5-5.1 [facility] Protein [Mass/Vol] 5.5 g/dL 6.4-8.2 [facility] Sodium [Moles/Vol] 142 mmol/L 136-145 [facility] WBC (Bld) [#/Vol] 8.2 10*3/uL 4.4-11.0 [facility] Blood erythrocytes count (nu mber/volume)Ordered By: White on 04-20-2023 RBC (Bld) [#/Vol] 3.82 10*6/uL 4.6-6.2 [facility] Blood hemoglobin measurement (mass/volume)Ordered By: White on 04-20-2023 Hemoglobin (Bld) [Mass/Vol] 10.8 g/dL 13.0-16.5 [facility] Blood lymphocytes/100 leukoc ytesOrdered By: White on 04-20-2023 Lymphocytes/100 WBC (Bld) 25.5 % 19-41 [facility] Blood monocytes/100 leukocyt esOrdered By: White on 04-20-2023 Monocytes/100 WBC (Bld) 10.2 % 0-10 [facility] Blood platelet mean volumeOr dered By: Helen Villa on 04-20-2023 Platelet mean volume (Bld) [Entitic vol] 9.0 fL 6.2-12.0 [facility] Determination of erythrocyte mean corpuscular volume (MCV)Ordered By: Helen Villa on 04-20-2023 MCV (RBC) [Entitic vol] 86.9 fL 80-94 [facility] Hematocrit Auto (Bld) [Volum e fraction]Ordered By: Helen Villa on 04-20-2023 Hematocrit (Bld) [Volume fraction] 33.2 % 40-54 [facility] Laboratory - Chemistry and C hemistry - challengeOrdered By: [facility] on 04-20-2023 ALP [Catalytic activity/Vol] 55 U/L 45-117 [facility] ALT [Catalytic activity/Vol] 22 U/L 16-61 [facility] CO2 [Moles/Vol] 26.0 mmol/L 21.0-32.0 [facility] Globulin (S) [Mass/Vol] 2.8 g/dL 2.2-4.2 [facility] Urea nitrogen/Creatinine [Mass ratio] 19.3 mg/mg 10-20 [facility] Laboratory - Hematology and Cell countsOrdered By: [facility] on 04-20-2023 Erythrocyte distribution width (RBC) [Entitic vol] 41.0 fL 35.1-43.9 [facility] Erythrocyte distribution width (RBC) [Ratio] 13.0 % 11.6-14.6 [facility] Immature granulocytes/100 WBC (Bld) 0.100 % 0.0-0.9 [facility] Comment on above: IG% - Immature Granu locytes (promyelocytes, myelocytes and metamyelocytes) > 1% indicates that a LEFT SHIFT is Present. MCH (RBC) [Entitic mass] 28.3 pg 27.0-32.0 [facility] Nucleated RBC/100 WBC (Bld) [Ratio] 0 % 0-5 [facility] MCHC Auto (RBC) [Mass/Vol]Or dered By: Helen Villa on 04-20-2023 MCHC (RBC) [Mass/Vol] 32.5 g/dL 32-36 [facility] No Panel InformationOrdered By: Helen Villa on 12-29-2023 Estimated Creatinine Clearance Calc 103.83 ml/min [facility] Estimated GFR (MDRD) Amer 124 mL/min >60 [facility] Comment on above: GFR Calc Estimated GFR (MDRD) Non-Af Amer 102 mL/min >60 [facility] Comment on above: Non- GFR Calc Platelets bldOrdered By: Leandro chapis Villa on 04-20-2023 Platelets (Bld) [#/Vol] 235 10*3/uL 150-450 [facility] Serum or plasma albumin chet urement (mass/volume)Ordered By: Helen Villa on 04-20-2023 Albumin [Mass/Vol] 2.7 g/dL 3.2-5.0 [facility] Serum or plasma albumin/glob ulin mass ratioOrdered By: Helen Villa on 04-20-2023 Albumin/Globulin [Mass ratio] 1.0 {ratio} 0.9-2.4 [facility] Serum or plasma calcium chet urement (mass/volume)Ordered By: Helen Villa on 04-20-2023 Calcium [Mass/Vol] 8.1 mg/dL 8.5-10.1 [facility] Serum or plasma creatinine m easurement (mass/volume)Ordered By: Helen Villa on 04-20-2023 Creatinine [Mass/Vol] 0.83 mg/dL 0.70-1.30 [facility] Comment on above: The validity of the calculated GFR & GFRAA in patients over 70 years has not been determined. Clinical correlation is essential. Serum or plasma urea nitroge n measurement (mass/volume)Ordered By: Helen Villa on 04-20-2023 Urea nitrogen [Mass/Vol] 16 mg/dL 7-18 [facility] Thin prep Papanicolaou smear with manual screeningOrdered By: Helen Villa on 04-20-2023 Thin prep Papanicolaou smear with manual screening 40 U/L 15-37 [facility] Thin prep Papanicolaou smear with manual screening 2 5-15 [facility] Whole blood hemoglobin A1c/t otal hemoglobin ratio (mass fraction)Ordered By: Helen Villa on 04-20-2023 HbA1c (Bld) [Mass fraction] 5.0 % 3.8-5.6 [facility] Comment on above: Normal < 5.7 % Predi abetic 5.7 - 6.4 % Diabetic >or= 6.5 % Please note range changes. Basophil percentageOrdered B y: Camilo Verdugo on 04-19-2023 Basophil percentage 0-5 SEEN /hpf 0-5 [facility] Basophil percentageOrdered B y: Helen Villa on 04-19-2023 Basophil percentage 3.9 mg/dL 2.5-4.9 [facility] Bilirubin Test strip Ql (U)O rdered By: Camilo Verdugo on 04-19-2023 Bilirubin Ql (U) Negative Negative [facility] Glucose Glucometer (BldC) [M ass/Vol]Ordered By: ED PROVIDER on 04-19-2023 Glucose [Mass/Vol] 152 mg/dL 74-106 [facility] Comment on above: MANAGEMENT OF PATIEN T CARE PER NURSING PROTOCOL Ketones Test strip Ql (U)Ord ered By: Camilo Verdugo on 04-19-2023 Ketones Ql (U) 5 mg/dl Negative [facility] Laboratory - Chemistry and C hemistry - challengeOrdered By: Helen Villa on 04-19-2023 Magnesium [Mass/Vol] 2.2 mg/dL 1.6-2.6 [facility] Laboratory - Drug toxicology Ordered By: Camilo Verdugo on 04-19-2023 Amphetamines Ql (U) Negative <1000 ng/mL [facility] Benzodiazepines Ql (U) Negative < 200 ng/mL [facility] Cannabinoids Screen Ql (U) Positive < 50 ng/mL [facility] Cocaine Ql (U) Negative < 300 ng/mL [facility] Opiates Ql (U) Positive < 300 ng/mL [facility] Mucus LM Ql (Urine sed)Order ed By: Camilo Verdugo on 04-19-2023 Mucus Ql (Urine sed) 1+ /hpf [facility] Nitrite Test strip Ql (U)Ord ered By: Camilo Verdugo on 04-19-2023 Nitrite Ql (U) Negative Negative [facility] No Panel InformationOrdered By: Camilo Verdugo on 04-19-2023 MDMA (Ecstasy) Screen Positive < 500 ng/mL [facility] Urine Barbiturates Screen Negative < 200 ng/mL [facility] Urine Drug Screen Comment [facility] Comment on above: CONFIRMATORY TESTING FOR ALL POSITIVE URINE DRUG SCREENRESULTS WILL ONLY BE SENT OUT UPON PHYSICIAN ORDER. [facility]ISTA Urine Drug Screen methods provide only preliminaryanalytical test results. A more specific alternate chemicalmethod must be used in order to obtain a confirmedanalytical result. Gas chromatography/mass spectrometery(GC/MS) is the preferred confirmatory method. Clinicalconsideration and professional judgement should be appliedto any drug of abuse test result, particularly whenpreliminary positive results are used. URINE TCA TESTING MUST BE ORDERED SEPARATELY. USE TESTMNEMONIC: [facility] Urine Methadone Screen Negative < 300 ng/mL [facility] Ethyl Alcohol Level < 3.0 mg/dL [facility] Comment on above: The serum:whole bloo d ethanol ratio is approximately 1.14and varies slightly with hematocrit. Medical Alcohol reference interval and critical value innon-tolerant individuals; 50 - 100 Impairment 100 Intoxication 100 - 250 Severe Poisoning 250 - 400 Deep/possible fatal coma Protein Test strip Ql (U)Ord ered By: Camilo Verdugo on 04-19-2023 Protein Ql (U) 30 mg/dl Negative [facility] Serum procalcitonin measurem entOrdered By: Helen Villa on 04-19-2023 Procalcitonin [Mass/Vol] ng/mL 0.00-0.09 [facility] Comment on above: A procalcitonin (PCT ) level above 2.0 ng/mL on the first day of ICU admission is associated with a high risk for progression to severe sepsis and/or septic shock. A PCT level below 0.5 ng/mL on the first day of ICU admission is associated with a low risk for progression to severe and/or septic shock. Note: Concentrations <0.5 ng/mL do not exclude an infection on account of localized infections (without systemic signs) which can be associated with such low concentrations, or a systemic infection in its initial stages (<6 hours). Furthermore, increased procalcitonin can occur without infection. PCT concentrations between 0.5 and 2.0 ng/mL should be interpreted taking into account the patient's history. It is recommended to retest PCT within 6-24 hours if any concentrations <2 ng/mL are obtained. Squamous epithelial cells de tection in urine sediment by light microscopyOrdered By: Camilo Verdugo on 04-19-2023 Epithelial cells.squamous LM Ql (Urine sed) 0 SEEN /hpf 0-5 [facility] Urine blood detectionOrdered By: Camilo Verdugo on 04-19-2023 RBC Ql (U) Negative Negative [facility] RBC Ql (U) 0 SEEN /hpf 0-5 [facility] Urine clarityOrdered By: Darius Verdugo on 04-19-2023 Clarity (U) Clear Clear [facility] Urine color determinationOrd ered By: Camilo Verdugo on 04-19-2023 Color (U) Yellow Yellow [facility] Urine glucose detectionOrder ed By: Camilo Verdugo on 04-19-2023 Glucose Ql (U) Normal mg/dl Normal [facility] Urine leukocyte esterase det ection by dipstickOrdered By: Camilo Verdugo on 04-19-2023 Leukocyte esterase Test strip Ql (U) 25 /ul Negative [facility] Urine pHOrdered By: Camilo donato on 04-19-2023 pH (U) 5.0 [pH] 5.0 - 8.0 [facility] Urine phencyclidine (PCP) de tectionOrdered By: Camilo Verdugo on 04-19-2023 Phencyclidine Ql (U) Negative < 25 ng/mL [facility] Urine sediment bacteria coun t by microscopy (number/high power field)Ordered By: Camilo Verdugo on 04-19-2023 Bacteria LM.HPF (Urine sed) [#/Area] 0 /[HPF] None Seen [facility] Urine specific gravity measu rementOrdered By: Camilo Verdugo on 04-19-2023 Specific gravity (U) [Rel density] 1.025 1.002-1.030 [facility] Urobilinogen Auto test strip Ql (U)Ordered By: Camilo Verdugo on 04-19-2023 Urobilinogen Ql (U) 1 mg/dl Normal [facility] Absolute lymphocyte countOrd ered By: Dr. Stanton on 10-02-2022 Lymphocytes Auto (Unsp spec) [#/Vol] 2.09 10*3/uL 0.83-4.51 [facility] Absolute lymphocyte countOrd ered By: Dr. Ricardo on 10-02-2022 Lymphocytes Auto (Unsp spec) [#/Vol] 1.93 10*3/uL 0.83-4.51 [facility] Basophil percentageOrdered B y: Dr. Stanton on 10-02-2022 Basophils/100 WBC (Bld) 0.7 % 0-1 [facility] Chloride [Moles/Vol] 105 mmol/L 98-107 [facility] Eosinophils/100 WBC (Bld) 0.4 % 0-5 [facility] Glucose [Mass/Vol] 108 mg/dL 74-106 [facility] Comment on above: Fasting Glucose resu lt from 100 to 125 mg/dL suggests IMPAIRED HOMEOSTASIS per A.D.A. criteria. Neutrophils (Bld) [#/Vol] 10.3 10*3/uL 2.0-7.7 [facility] Neutrophils/100 WBC (Bld) 74.9 % 47-70 [facility] Potassium [Moles/Vol] 4.0 mmol/L 3.5-5.1 [facility] Sodium [Moles/Vol] 138 mmol/L 136-145 [facility] WBC (Bld) [#/Vol] 13.8 10*3/uL 4.4-11.0 [facility] Basophil percentageOrdered B y: Dr. Ricardo on 10-02-2022 Basophils/100 WBC (Bld) 0.6 % 0-1 [facility] Bilirubin [Mass/Vol] 0.50 mg/dL 0.20-1.00 [facility] Comment on above: For patients on eltr ombopag therapy, use of Dimension Meally TBIL is not recommended. Chloride [Moles/Vol] 107 mmol/L 98-107 [facility] Eosinophils/100 WBC (Bld) 0.6 % 0-5 [facility] Glucose [Mass/Vol] 87 mg/dL 74-106 [facility] Neutrophils (Bld) [#/Vol] 12.3 10*3/uL 2.0-7.7 [facility] Neutrophils/100 WBC (Bld) 79.5 % 47-70 [facility] Potassium [Moles/Vol] 3.7 mmol/L 3.5-5.1 [facility] Protein [Mass/Vol] 7.1 g/dL 6.4-8.2 [facility] Sodium [Moles/Vol] 141 mmol/L 136-145 [facility] WBC (Bld) [#/Vol] 15.5 10*3/uL 4.4-11.0 [facility] Basophil percentageOrdered B y: Dr. Welch on 10-02-2022 Basophil percentage 0 SEEN /hpf 0-5 [facility] Bilirubin Test strip Ql (U)O rdered By: Dr. Welch on 10-02-2022 Bilirubin Ql (U) Negative Negative [facility] Blood erythrocytes count (nu mber/volume)Ordered By: Dr. Stanton on 10-02-2022 RBC (Bld) [#/Vol] 3.78 10*6/uL 4.6-6.2 [facility] Blood erythrocytes count (nu mber/volume)Ordered By: Dr. Ricardo on 10-02-2022 RBC (Bld) [#/Vol] 4.12 10*6/uL 4.6-6.2 [facility] Blood hemoglobin measurement (mass/volume)Ordered By: Dr. Stnaton on 10-02-2022 Hemoglobin (Bld) [Mass/Vol] 11.1 g/dL 13.0-16.5 [facility] Blood hemoglobin measurement (mass/volume)Ordered By: Dr. Ricardo on 10-02-2022 Hemoglobin (Bld) [Mass/Vol] 11.9 g/dL 13.0-16.5 [facility] Blood lymphocytes/100 leukoc ytesOrdered By: Dr. Stanton on 10-02-2022 Lymphocytes/100 WBC (Bld) 15.1 % 19- [facility] Blood lymphocytes/100 leukoc ytesOrdered By: Dr. Ricardo on 10-02-2022 Lymphocytes/100 WBC (Bld) 12.4 % 19-41 [facility] Blood monocytes/100 leukocyt esOrdered By: Dr. Stanton on 10-02-2022 Monocytes/100 WBC (Bld) 8.5 % 0-10 [facility] Blood monocytes/100 leukocyt esOrdered By: Dr. Ricardo on 10-02-2022 Monocytes/100 WBC (Bld) 6.1 % 0-10 [facility] Blood platelet mean volumeOr dered By: Dr. Stanton on 10-02-2022 Platelet mean volume (Bld) [Entitic vol] 9.4 fL 6.2-12.0 [facility] Blood platelet mean volumeOr dered By: Dr. Ricardo on 10-02-2022 Platelet mean volume (Bld) [Entitic vol] 9.2 fL 6.2-12.0 [facility] Determination of erythrocyte mean corpuscular volume (MCV)Ordered By: Dr. Stanton on 10-02-2022 MCV (RBC) [Entitic vol] 87.0 fL 80-94 [facility] Determination of erythrocyte mean corpuscular volume (MCV)Ordered By: Dr. Ricardo on 10-02-2022 MCV (RBC) [Entitic vol] 88.3 fL 80-94 [facility] Hematocrit Auto (Bld) [Volum e fraction]Ordered By: Dr. Stanton on 10-02-2022 Hematocrit (Bld) [Volume fraction] 32.9 % 40-54 [facility] Hematocrit Auto (Bld) [Volum e fraction]Ordered By: Dr. Ricardo on 10-02-2022 Hematocrit (Bld) [Volume fraction] 36.4 % 40-54 [facility] Ketones Test strip Ql (U)Ord ered By: Dr. Welch on 10-02-2022 Ketones Ql (U) Negative Negative [facility] Laboratory - Chemistry and C hemistry - challengeOrdered By: Dr. Stanton on 10-02-2022 CO2 [Moles/Vol] 26.0 mmol/L 21.0-32.0 [facility] Urea nitrogen/Creatinine [Mass ratio] 14.2 mg/mg 10-20 [facility] Laboratory - Chemistry and C hemistry - challengeOrdered By: Dr. Ricardo on 10-02-2022 ALP [Catalytic activity/Vol] 86 U/L 45-117 [facility] ALT [Catalytic activity/Vol] 26 U/L 16-61 [facility] CO2 [Moles/Vol] 23.0 mmol/L 21.0-32.0 [facility] Globulin (S) [Mass/Vol] 3.5 g/dL 2.2-4.2 [facility] Urea nitrogen/Creatinine [Mass ratio] 11.9 mg/mg 10-20 [facility] Laboratory - Drug toxicology Ordered By: Dr. Stanton on 10-02-2022 Amphetamines Ql (U) Negative <1000 ng/mL [facility] Benzodiazepines Ql (U) Positive < 200 ng/mL [facility] Cannabinoids Screen Ql (U) Positive < 50 ng/mL [facility] Cocaine Ql (U) Negative < 300 ng/mL [facility] Opiates Ql (U) Negative < 300 ng/mL [facility] Laboratory - Drug toxicology Ordered By: Dr. Ricardo on 10-02-2022 Amphetamines Ql (U) Negative <1000 ng/mL [facility] Benzodiazepines Ql (U) Negative < 200 ng/mL [facility] Cannabinoids Screen Ql (U) Negative < 50 ng/mL [facility] Cocaine Ql (U) Negative < 300 ng/mL [facility] Opiates Ql (U) Negative < 300 ng/mL [facility] Laboratory - Drug toxicology Ordered By: Dr. Welch on 10-02-2022 Amphetamines Ql (U) Negative <1000 ng/mL [facility] Benzodiazepines Ql (U) Negative < 200 ng/mL [facility] Cannabinoids Screen Ql (U) Negative < 50 ng/mL [facility] Cocaine Ql (U) Negative < 300 ng/mL [facility] Opiates Ql (U) Negative < 300 ng/mL [facility] Laboratory - Hematology and Cell countsOrdered By: Dr. Stanton on 10-02-2022 Erythrocyte distribution width (RBC) [Entitic vol] 42.9 fL 35.1-43.9 [facility] Erythrocyte distribution width (RBC) [Ratio] 13.5 % 11.6-14.6 [facility] Immature granulocytes/100 WBC (Bld) 0.400 % 0.0-0.9 [facility] Comment on above: IG% - Immature Granu locytes (promyelocytes, myelocytes and metamyelocytes) > 1% indicates that a LEFT SHIFT is Present. MCH (RBC) [Entitic mass] 29.4 pg 27.0-32.0 [facility] Nucleated RBC/100 WBC (Bld) [Ratio] 0 % 0-5 [facility] Laboratory - Hematology and Cell countsOrdered By: Dr. Ricardo on 10-02-2022 Erythrocyte distribution width (RBC) [Entitic vol] 43.5 fL 35.1-43.9 [facility] Erythrocyte distribution width (RBC) [Ratio] 13.4 % 11.6-14.6 [facility] Immature granulocytes/100 WBC (Bld) 0.800 % 0.0-0.9 [facility] Comment on above: IG% - Immature Granu locytes (promyelocytes, myelocytes and metamyelocytes) > 1% indicates that a LEFT SHIFT is Present. MCH (RBC) [Entitic mass] 28.9 pg 27.0-32.0 [facility] Nucleated RBC/100 WBC (Bld) [Ratio] 0 % 0-5 [facility] MCHC Auto (RBC) [Mass/Vol]Or dered By: Dr. Stanton on 10-02-2022 MCHC (RBC) [Mass/Vol] 33.7 g/dL 32-36 [facility] MCHC Auto (RBC) [Mass/Vol]Or dered By: Dr. Ricardo on 10-02-2022 MCHC (RBC) [Mass/Vol] 32.7 g/dL 32-36 [facility] Mucus LM Ql (Urine sed)Order ed By: Dr. Welch on 10-02-2022 Mucus Ql (Urine sed) 0 SEEN /hpf [facility] Nitrite Test strip Ql (U)Ord ered By: Dr. Welch on 10-02-2022 Nitrite Ql (U) Negative Negative [facility] No Panel InformationOrdered By: Dr. Stanton on 10-02-2022 MDMA (Ecstasy) Screen Negative < 500 ng/mL [facility] Urine Barbiturates Screen Negative < 200 ng/mL [facility] Urine Drug Screen Comment [facility] Comment on above: CONFIRMATORY TESTING FOR ALL POSITIVE URINE DRUG SCREENRESULTS WILL ONLY BE SENT OUT UPON PHYSICIAN ORDER. [facility]IST[facility] Urine Drug Screen methods provide only preliminaryanalytical test results. A more specific alternate chemicalmethod must be used in order to obtain a confirmedanalytical result. Gas chromatography/mass spectrometery(GC/MS) is the preferred confirmatory method. Clinicalconsideration and professional judgement should be appliedto any drug of abuse test result, particularly whenpreliminary positive results are used. URINE TCA TESTING MUST BE ORDERED SEPARATELY. USE TESTMNEMONIC: [facility] Urine Methadone Screen Negative < 300 ng/mL [facility] Estimated Creatinine Clearance Calc 66.49 ml/min [facility] Estimated GFR (MDRD) Amer 76 mL/min >60 [facility] Comment on above: GFR Calc Estimated GFR (MDRD) Non-Af Amer 63 mL/min >60 [facility] Comment on above: Non- GFR Calc Ethyl Alcohol Level 5.0 mg/dL [facility] Comment on above: The serum:whole bloo d ethanol ratio is approximately 1.14and varies slightly with hematocrit. Medical Alcohol reference interval and critical value innon-tolerant individuals; 50 - 100 Impairment 100 Intoxication 100 - 250 Severe Poisoning 250 - 400 Deep/possible fatal coma No Panel InformationOrdered By: Dr. Ricardo on 10-02-2022 MDMA (Ecstasy) Screen Negative < 500 ng/mL [facility] Urine Barbiturates Screen Negative < 200 ng/mL [facility] Urine Drug Screen Comment [facility] Comment on above: CONFIRMATORY TESTING FOR ALL POSITIVE URINE DRUG SCREENRESULTS WILL ONLY BE SENT OUT UPON PHYSICIAN ORDER. [facility]IST[facility] Urine Drug Screen methods provide only preliminaryanalytical test results. A more specific alternate chemicalmethod must be used in order to obtain a confirmedanalytical result. Gas chromatography/mass spectrometery(GC/MS) is the preferred confirmatory method. Clinicalconsideration and professional judgement should be appliedto any drug of abuse test result, particularly whenpreliminary positive results are used. URINE TCA TESTING MUST BE ORDERED SEPARATELY. USE TESTMNEMONIC: [facility] Urine Methadone Screen Negative < 300 ng/mL [facility] Estimated Creatinine Clearance Calc 88.80 ml/min [facility] Estimated GFR (MDRD) Amer 110 mL/min >60 [facility] Comment on above: GFR Calc Estimated GFR (MDRD) Non-Af Amer 91 mL/min >60 [facility] Comment on above: Non- GFR Calc Ethyl Alcohol Level 46.0 mg/dL [facility] Comment on above: The serum:whole bloo d ethanol ratio is approximately 1.14and varies slightly with hematocrit. Medical Alcohol reference interval and critical value innon-tolerant individuals; 50 - 100 Impairment 100 Intoxication 100 - 250 Severe Poisoning 250 - 400 Deep/possible fatal coma No Panel InformationOrdered By: Dr. Welch on 10-02-2022 MDMA (Ecstasy) Screen Negative < 500 ng/mL [facility] Urine Barbiturates Screen Negative < 200 ng/mL [facility] Urine Drug Screen Comment [facility] Comment on above: CONFIRMATORY TESTING FOR ALL POSITIVE URINE DRUG SCREENRESULTS WILL ONLY BE SENT OUT UPON PHYSICIAN ORDER. [facility]ISTA Urine Drug Screen methods provide only preliminaryanalytical test results. A more specific alternate chemicalmethod must be used in order to obtain a confirmedanalytical result. Gas chromatography/mass spectrometery(GC/MS) is the preferred confirmatory method. Clinicalconsideration and professional judgement should be appliedto any drug of abuse test result, particularly whenpreliminary positive results are used. URINE TCA TESTING MUST BE ORDERED SEPARATELY. USE TESTMNEMONIC: [facility] Urine Methadone Screen Negative < 300 ng/mL [facility] Platelets bldOrdered By: Dr. Stanton on 10-02-2022 Platelets (Bld) [#/Vol] 284 10*3/uL 150-450 [facility] Platelets bldOrdered By: Dr. Ricardo on 10-02-2022 Platelets (Bld) [#/Vol] 307 10*3/uL 150-450 [facility] Protein Test strip Ql (U)Ord ered By: Dr. Welch on 10-02-2022 Protein Ql (U) Negative Negative [facility] Serum or plasma albumin chet urement (mass/volume)Ordered By: Dr. Ricardo on 10-02-2022 Albumin [Mass/Vol] 3.6 g/dL 3.2-5.0 [facility] Serum or plasma albumin/glob ulin mass ratioOrdered By: Dr. Ricardo on 10-02-2022 Albumin/Globulin [Mass ratio] 1.0 {ratio} 0.9-2.4 [facility] Serum or plasma calcium chet urement (mass/volume)Ordered By: Dr. Stanton on 10-02-2022 Calcium [Mass/Vol] 9.2 mg/dL 8.5-10.1 [facility] Serum or plasma calcium chet urement (mass/volume)Ordered By: Dr. Ricardo on 10-02-2022 Calcium [Mass/Vol] 9.1 mg/dL 8.5-10.1 [facility] Serum or plasma creatinine m easurement (mass/volume)Ordered By: Dr. Stanton on 10-02-2022 Creatinine [Mass/Vol] 1.27 mg/dL 0.70-1.30 [facility] Comment on above: The validity of the calculated GFR & GFRAA in patients over 70 years has not been determined. Clinical correlation is essential. Serum or plasma creatinine m easurement (mass/volume)Ordered By: Dr. Ricardo on 10-02-2022 Creatinine [Mass/Vol] 0.92 mg/dL 0.70-1.30 [facility] Comment on above: The validity of the calculated GFR & GFRAA in patients over 70 years has not been determined. Clinical correlation is essential. Serum or plasma urea nitroge n measurement (mass/volume)Ordered By: Dr. Stanton on 10-02-2022 Urea nitrogen [Mass/Vol] 18 mg/dL 11-07 [facility] Serum or plasma urea nitroge n measurement (mass/volume)Ordered By: Dr. Ricardo on 10-02-2022 Urea nitrogen [Mass/Vol] 11 mg/dL 11-07 [facility] Squamous epithelial cells de tection in urine sediment by light microscopyOrdered By: Dr. Welch on 10-02-2022 Epithelial cells.squamous LM Ql (Urine sed) 0 SEEN /hpf 0-5 [facility] Thin prep Papanicolaou smear with manual screeningOrdered By: Dr. Stanton on 10-02-2022 Thin prep Papanicolaou smear with manual screening 7 5-15 [facility] Thin prep Papanicolaou smear with manual screeningOrdered By: Dr. Ricardo on 10-02-2022 Thin prep Papanicolaou smear with manual screening 25 U/L 15-37 [facility] Thin prep Papanicolaou smear with manual screening 11 5-15 [facility] Urine blood detectionOrdered By: Dr. Welch on 10-02-2022 RBC Ql (U) Negative Negative [facility] RBC Ql (U) 0 SEEN /hpf 0-5 [facility] Urine clarityOrdered By: Dr. Welch on 10-02-2022 Clarity (U) Clear Clear [facility] Urine color determinationOrd ered By: Dr. Welch on 10-02-2022 Color (U) Yellow Yellow [facility] Urine glucose detectionOrder ed By: Dr. Welch on 10-02-2022 Glucose Ql (U) Normal mg/dl Normal [facility] Urine leukocyte esterase det ection by dipstickOrdered By: Dr. Welch on 10-02-2022 Leukocyte esterase Test strip Ql (U) Negative Negative [facility] Urine pHOrdered By: Dr. Vaibhav corea on 10-02-2022 pH (U) 7.0 [pH] 5.0 - 8.0 [facility] Urine phencyclidine (PCP) de tectionOrdered By: Dr. Stanton on 10-02-2022 Phencyclidine Ql (U) Negative < 25 ng/mL [facility] Urine phencyclidine (PCP) de tectionOrdered By: Dr. Ricardo on 10-02-2022 Phencyclidine Ql (U) Negative < 25 ng/mL [facility] Urine phencyclidine (PCP) de tectionOrdered By: Dr. Welch on 10-02-2022 Phencyclidine Ql (U) Negative < 25 ng/mL [facility] Urine sediment bacteria coun t by microscopy (number/high power field)Ordered By: Dr. Welch on 10-02-2022 Bacteria LM.HPF (Urine sed) [#/Area] 0 /[HPF] None Seen [facility] Urine specific gravity measu rementOrdered By: Dr. Welch on 10-02-2022 Specific gravity (U) [Rel density] 1.005 1.002-1.030 [facility] Urobilinogen Auto test strip Ql (U)Ordered By: Dr. Welch on 10-02-2022 Urobilinogen Ql (U) Normal mg/dl Normal [facility] Absolute lymphocyte countOrd ered By: Dr. Welch on 10-01-2022 Lymphocytes Auto (Unsp spec) [#/Vol] 3.23 10*3/uL 0.83-4.51 [facility] Basophil percentageOrdered B y: Dr. Welch on 10-01-2022 Basophils/100 WBC (Bld) 0.9 % 0-1 [facility] Bilirubin [Mass/Vol] 0.20 mg/dL 0.20-1.00 [facility] Comment on above: For patients on eltr ombopag therapy, use of Dimension Meally TBIL is not recommended. Chloride [Moles/Vol] 105 mmol/L 98-107 [facility] Eosinophils/100 WBC (Bld) 3.2 % 0-5 [facility] Glucose [Mass/Vol] 103 mg/dL 74-106 [facility] Comment on above: Fasting Glucose resu lt from 100 to 125 mg/dL suggests IMPAIRED HOMEOSTASIS per A.D.A. criteria. Neutrophils (Bld) [#/Vol] 5.8 10*3/uL 2.0-7.7 [facility] Neutrophils/100 WBC (Bld) 56.5 % 47-70 [facility] Potassium [Moles/Vol] 3.4 mmol/L 3.5-5.1 [facility] Protein [Mass/Vol] 6.7 g/dL 6.4-8.2 [facility] Sodium [Moles/Vol] 139 mmol/L 136-145 [facility] WBC (Bld) [#/Vol] 10.3 10*3/uL 4.4-11.0 [facility] Blood erythrocytes count (nu mber/volume)Ordered By: Dr. Welch on 10-01-2022 RBC (Bld) [#/Vol] 3.91 10*6/uL 4.6-6.2 [facility] Blood hemoglobin measurement (mass/volume)Ordered By: Dr. Welch on 10-01-2022 Hemoglobin (Bld) [Mass/Vol] 11.4 g/dL 13.0-16.5 [facility] Blood lymphocytes/100 leukoc ytesOrdered By: Dr. Welch on 10-01-2022 Lymphocytes/100 WBC (Bld) 31.4 % 19-41 [facility] Blood monocytes/100 leukocyt esOrdered By: Dr. Welch on 10-01-2022 Monocytes/100 WBC (Bld) 7.4 % 0-10 [facility] Blood platelet mean volumeOr dered By: Dr. Welch on 10-01-2022 Platelet mean volume (Bld) [Entitic vol] 9.1 fL 6.2-12.0 [facility] Determination of erythrocyte mean corpuscular volume (MCV)Ordered By: Dr. Welch on 10-01-2022 MCV (RBC) [Entitic vol] 86.4 fL 80-94 [facility] Hematocrit Auto (Bld) [Volum e fraction]Ordered By: Dr. Welch on 10-01-2022 Hematocrit (Bld) [Volume fraction] 33.8 % 40-54 [facility] Laboratory - Chemistry and C hemistry - challengeOrdered By: Dr. Welch on 10-01-2022 ALP [Catalytic activity/Vol] 78 U/L 45-117 [facility] ALT [Catalytic activity/Vol] 24 U/L 16-61 [facility] CO2 [Moles/Vol] 26.0 mmol/L 21.0-32.0 [facility] Globulin (S) [Mass/Vol] 3.5 g/dL 2.2-4.2 [facility] Urea nitrogen/Creatinine [Mass ratio] 15.3 mg/mg 10-20 [facility] Laboratory - Hematology and Cell countsOrdered By: Dr. Welch on 10-01-2022 Erythrocyte distribution width (RBC) [Entitic vol] 41.5 fL 35.1-43.9 [facility] Erythrocyte distribution width (RBC) [Ratio] 13.2 % 11.6-14.6 [facility] Immature granulocytes/100 WBC (Bld) 0.600 % 0.0-0.9 [facility] Comment on above: IG% - Immature Granu locytes (promyelocytes, myelocytes and metamyelocytes) > 1% indicates that a LEFT SHIFT is Present. MCH (RBC) [Entitic mass] 29.2 pg 27.0-32.0 [facility] Nucleated RBC/100 WBC (Bld) [Ratio] 0 % 0-5 [facility] MCHC Auto (RBC) [Mass/Vol]Or dered By: Dr. Welch on 10-01-2022 MCHC (RBC) [Mass/Vol] 33.7 g/dL 32-36 [facility] No Panel InformationOrdered By: Dr. Welch on 10-01-2022 Estimated Creatinine Clearance Calc 104.74 ml/min [facility] Estimated GFR (MDRD) Amer 133 mL/min >60 [facility] Comment on above: GFR Calc Estimated GFR (MDRD) Non-Af Amer 110 mL/min >60 [facility] Comment on above: Non- GFR Calc Ethyl Alcohol Level 88.0 mg/dL [facility] Comment on above: The serum:whole bloo d ethanol ratio is approximately 1.14and varies slightly with hematocrit. Medical Alcohol reference interval and critical value innon-tolerant individuals; 50 - 100 Impairment 100 Intoxication 100 - 250 Severe Poisoning 250 - 400 Deep/possible fatal coma Troponin I High Sensitivity 11 pg/mL 3.0-78.0 [facility] Comment on above: Please Note: New Xiomara t Units and Gender Specific Reference Ranges. For more information see Policy Stat Procedure Meally High Sensitivity Troponin (TNIH) and attachments. Platelets bldOrdered By: Dr. Welch on 10-01-2022 Platelets (Bld) [#/Vol] 256 10*3/uL 150-450 [facility] Serum or plasma albumin chet urement (mass/volume)Ordered By: Dr. Welch on 10-01-2022 Albumin [Mass/Vol] 3.2 g/dL 3.2-5.0 [facility] Serum or plasma albumin/glob ulin mass ratioOrdered By: Dr. Welch on 10-01-2022 Albumin/Globulin [Mass ratio] 0.9 {ratio} 0.9-2.4 [facility] Serum or plasma calcium chet urement (mass/volume)Ordered By: Dr. Welch on 10-01-2022 Calcium [Mass/Vol] 8.6 mg/dL 8.5-10.1 [facility] Serum or plasma creatinine m easurement (mass/volume)Ordered By: Dr. Welch on 10-01-2022 Creatinine [Mass/Vol] 0.78 mg/dL 0.70-1.30 [facility] Comment on above: The validity of the calculated GFR & GFRAA in patients over 70 years has not been determined. Clinical correlation is essential. Serum or plasma urea nitroge n measurement (mass/volume)Ordered By: Dr. Welch on 10-01-2022 Urea nitrogen [Mass/Vol] 12 mg/dL 7-18 [facility] Thin prep Papanicolaou smear with manual screeningOrdered By: Dr. Welch on 10-01-2022 Thin prep Papanicolaou smear with manual screening 17 U/L 15-37 [facility] Thin prep Papanicolaou smear with manual screening 8 5-15 [facility] Absolute lymphocyte countOrd ered By: Dr. Stanton on 09-25-2022 Lymphocytes Auto (Unsp spec) [#/Vol] 2.47 10*3/uL 0.83-4.51 [facility] Basophil percentageOrdered B y: Dr. Stanton on 09-25-2022 Basophils/100 WBC (Bld) 0.9 % 0-1 [facility] Chloride [Moles/Vol] 106 mmol/L 98-107 [facility] Eosinophils/100 WBC (Bld) 4.9 % 0-5 [facility] Glucose [Mass/Vol] 96 mg/dL 74-106 [facility] Neutrophils (Bld) [#/Vol] 6.8 10*3/uL 2.0-7.7 [facility] Neutrophils/100 WBC (Bld) 63.7 % 47-70 [facility] Potassium [Moles/Vol] 3.7 mmol/L 3.5-5.1 [facility] Sodium [Moles/Vol] 140 mmol/L 136-145 [facility] WBC (Bld) [#/Vol] 10.6 10*3/uL 4.4-11.0 [facility] Blood erythrocytes count (nu mber/volume)Ordered By: Dr. Stanton on 09-25-2022 RBC (Bld) [#/Vol] 4.41 10*6/uL 4.6-6.2 [facility] Blood hemoglobin measurement (mass/volume)Ordered By: Dr. Stanton on 09-25-2022 Hemoglobin (Bld) [Mass/Vol] 12.6 g/dL 13.0-16.5 [facility] Blood lymphocytes/100 leukoc ytesOrdered By: Dr. Stanton on 09-25-2022 Lymphocytes/100 WBC (Bld) 23.3 % 19-41 [facility] Blood monocytes/100 leukocyt esOrdered By: Dr. Stanton on 09-25-2022 Monocytes/100 WBC (Bld) 6.8 % 0-10 [facility] Blood platelet mean volumeOr dered By: Dr. Stanton on 09-25-2022 Platelet mean volume (Bld) [Entitic vol] 8.4 fL 6.2-12.0 [facility] Determination of erythrocyte mean corpuscular volume (MCV)Ordered By: Dr. Stanton on 09-25-2022 MCV (RBC) [Entitic vol] 86.6 fL 80-94 [facility] Hematocrit Auto (Bld) [Volum e fraction]Ordered By: Dr. Stanton on 09-25-2022 Hematocrit (Bld) [Volume fraction] 38.2 % 40-54 [facility] Laboratory - Chemistry and C hemistry - challengeOrdered By: Dr. Stanton on 09-25-2022 CO2 [Moles/Vol] 28.0 mmol/L 21.0-32.0 [facility] Urea nitrogen/Creatinine [Mass ratio] 10.0 mg/mg 10-20 [facility] Laboratory - Drug toxicology Ordered By: Dr. Stanton on 09-25-2022 Amphetamines Ql (U) Negative <1000 ng/mL [facility] Benzodiazepines Ql (U) Negative < 200 ng/mL [facility] Cannabinoids Screen Ql (U) Positive < 50 ng/mL [facility] Cocaine Ql (U) Negative < 300 ng/mL [facility] Opiates Ql (U) Negative < 300 ng/mL [facility] Laboratory - Hematology and Cell countsOrdered By: Dr. Stanton on 09-25-2022 Erythrocyte distribution width (RBC) [Entitic vol] 43.9 fL 35.1-43.9 [facility] Erythrocyte distribution width (RBC) [Ratio] 13.7 % 11.6-14.6 [facility] Immature granulocytes/100 WBC (Bld) 0.400 % 0.0-0.9 [facility] Comment on above: IG% - Immature Granu locytes (promyelocytes, myelocytes and metamyelocytes) > 1% indicates that a LEFT SHIFT is Present. MCH (RBC) [Entitic mass] 28.6 pg 27.0-32.0 [facility] Nucleated RBC/100 WBC (Bld) [Ratio] 0 % 0-5 [facility] MCHC Auto (RBC) [Mass/Vol]Or dered By: Dr. Stanton on 09-25-2022 MCHC (RBC) [Mass/Vol] 33.0 g/dL 32-36 [facility] No Panel InformationOrdered By: Dr. Stanton on 09-25-2022 MDMA (Ecstasy) Screen Negative < 500 ng/mL [facility] Urine Barbiturates Screen Negative < 200 ng/mL [facility] Urine Drug Screen Comment [facility] Comment on above: CONFIRMATORY TESTING FOR ALL POSITIVE URINE DRUG SCREENRESULTS WILL ONLY BE SENT OUT UPON PHYSICIAN ORDER. VISTA Urine Drug Screen methods provide only preliminaryanalytical test results. A more specific alternate chemicalmethod must be used in order to obtain a confirmedanalytical result. Gas chromatography/mass spectrometery(GC/MS) is the preferred confirmatory method. Clinicalconsideration and professional judgement should be appliedto any drug of abuse test result, particularly whenpreliminary positive results are used. URINE TCA TESTING MUST BE ORDERED SEPARATELY. USE TESTMNEMONIC: [facility] Urine Methadone Screen Negative < 300 ng/mL [facility] Estimated Creatinine Clearance Calc 93.83 ml/min [facility] Estimated GFR (MDRD) Amer 113 mL/min >60 [facility] Comment on above: GFR Calc Estimated GFR (MDRD) Non-Af Amer 94 mL/min >60 [facility] Comment on above: Non- GFR Calc Ethyl Alcohol Level < 3.0 mg/dL [facility] Comment on above: The serum:whole bloo d ethanol ratio is approximately 1.14and varies slightly with hematocrit. Medical Alcohol reference interval and critical value innon-tolerant individuals; 50 - 100 Impairment 100 Intoxication 100 - 250 Severe Poisoning 250 - 400 Deep/possible fatal coma Platelets bldOrdered By: Dr. Stanton on 09-25-2022 Platelets (Bld) [#/Vol] 299 10*3/uL 150-450 [facility] Serum or plasma calcium chet urement (mass/volume)Ordered By: Dr. Stanton on 09-25-2022 Calcium [Mass/Vol] 8.7 mg/dL 8.5-10.1 [facility] Serum or plasma creatinine m easurement (mass/volume)Ordered By: Dr. Stanton on 09-25-2022 Creatinine [Mass/Vol] 0.90 mg/dL 0.70-1.30 [facility] Comment on above: The validity of the calculated GFR & GFRAA in patients over 70 years has not been determined. Clinical correlation is essential. Serum or plasma urea nitroge n measurement (mass/volume)Ordered By: Dr. Stanton on 09-25-2022 Urea nitrogen [Mass/Vol] 9 mg/dL 7-18 [facility] Thin prep Papanicolaou smear with manual screeningOrdered By: Dr. Stanton on 09-25-2022 Thin prep Papanicolaou smear with manual screening 6 5-15 [facility] Urine phencyclidine (PCP) de tectionOrdered By: Dr. Stanton on 09-25-2022 Phencyclidine Ql (U) Negative < 25 ng/mL [facility] Laboratory - Drug toxicology Ordered By: Franklyn Callahan on 09-23-2022 Amphetamines Ql (U) Negative <1000 ng/mL [facility] Benzodiazepines Ql (U) Negative < 200 ng/mL [facility] Cannabinoids Screen Ql (U) Positive < 50 ng/mL [facility] Cocaine Ql (U) Negative < 300 ng/mL [facility] Opiates Ql (U) Negative < 300 ng/mL [facility] No Panel InformationOrdered By: Franklyn Callahan on 09-23-2022 MDMA (Ecstasy) Screen Negative < 500 ng/mL [facility] Urine Barbiturates Screen Negative < 200 ng/mL [facility] Urine Drug Screen Comment [facility] Comment on above: CONFIRMATORY TESTING FOR ALL POSITIVE URINE DRUG SCREENRESULTS WILL ONLY BE SENT OUT UPON PHYSICIAN ORDER. VISTA Urine Drug Screen methods provide only preliminaryanalytical test results. A more specific alternate chemicalmethod must be used in order to obtain a confirmedanalytical result. Gas chromatography/mass spectrometery(GC/MS) is the preferred confirmatory method. Clinicalconsideration and professional judgement should be appliedto any drug of abuse test result, particularly whenpreliminary positive results are used. URINE TCA TESTING MUST BE ORDERED SEPARATELY. USE TESTMNEMONIC: [facility] Urine Methadone Screen Negative < 300 ng/mL [facility] Urine phencyclidine (PCP) de tectionOrdered By: Franklyn Callahan on 09-23-2022 Phencyclidine Ql (U) Negative < 25 ng/mL [facility] Absolute lymphocyte counton 11-09-2021 Lymphocytes Auto (Unsp spec) [#/Vol] 1.91 10*3/uL 0.83-4.51 [facility] Work Phone: Basophil percentageon 2021 Basophils/100 WBC (Bld) 1.0 % 0-1 [facility] Work Phone: Bilirubin [Mass/Vol] 0.30 mg/dL 0.20-1.00 [facility] Work Phone: Comment on above: For patients on eltr ombopag therapy, use of Dimension Meally TBIL is not recommended. Chloride [Moles/Vol] 106 mmol/L 98-107 [facility] Work Phone: Cholesterol [Mass/Vol] 261 mg/dL <200 [facility] Work Phone: Comment on above: <200 mg/dL Desirable 200-240 mg/dL Borderline >240 mg/dL High Risk Eosinophils/100 WBC (Bld) 2.8 % 0-5 [facility] Work Phone: Glucose [Mass/Vol] 93 mg/dL 74-106 [facility] Work Phone: Neutrophils (Bld) [#/Vol] 9.3 10*3/uL 2.0-7.7 [facility] Work Phone: Neutrophils/100 WBC (Bld) 74.8 % 47-70 [facility] Work Phone: Potassium [Moles/Vol] 3.9 mmol/L 3.5-5.1 [facility] Work Phone: Protein [Mass/Vol] 7.6 g/dL 6.4-8.2 [facility] Work Phone: Sodium [Moles/Vol] 140 mmol/L 136-145 [facility] Work Phone: Triglyceride [Mass/Vol] 235 mg/dL <199 [facility] Work Phone: Comment on above: The drugs N-Acetylcy steine and Metamizole may falsely depress this assay.Serum Triglycerides Reference Interval Normal <150 mg/dL Borderline high 150 - 199 mg/dL High 200 - 499 mg/dL Very High > or = 500 mg/dL WBC (Bld) [#/Vol] 12.4 10*3/uL 4.4-11.0 [facility] Work Phone: Blood erythrocytes count (nu mber/volume)on 11-09-2021 RBC (Bld) [#/Vol] 4.61 10*6/uL 4.6-6.2 [facility] Work Phone: Blood hemoglobin measurement (mass/volume)on 11-09-2021 Hemoglobin (Bld) [Mass/Vol] 13.4 g/dL 13.0-16.5 [facility] Work Phone: Blood lymphocytes/100 leukoc yteson 11-09-2021 Lymphocytes/100 WBC (Bld) 15.4 % 19-41 [facility] Work Phone: [phone] Blood monocytes/100 leukocyt eson 11-09-2021 Monocytes/100 WBC (Bld) 5.6 % 0-10 [facility] Work Phone: Blood platelet mean volumeon 11-09-2021 Platelet mean volume (Bld) [Entitic vol] 8.6 fL 6.2-12.0 [facility] Work Phone: Determination of erythrocyte mean corpuscular volume (MCV)on 11-09-2021 MCV (RBC) [Entitic vol] 87.4 fL 80-94 [facility] Work Phone: Hematocrit Auto (Bld) [Volum e fraction]on 11-09-2021 Hematocrit (Bld) [Volume fraction] 40.3 % 40-54 [facility] Work Phone: Iron measurement (mass/mass) on 11-09-2021 Iron (Unsp spec) [Mass/Mass] 77 ug/dL 65-175 [facility] Work Phone: Laboratory - Chemistry and C hemistry - challengeon 11-09-2021 ALP [Catalytic activity/Vol] 97 U/L 45-117 [facility] Work Phone: ALT [Catalytic activity/Vol] 25 U/L 16-61 [facility] Work Phone: [phone] CO2 [Moles/Vol] 27.0 mmol/L 21.0-32.0 [facility] Work Phone: [phone] Cobalamin (Vitamin B12) [Mass/Vol] 452 pg/mL 211-911 [facility] Work Phone: [phone] Free T4 [Mass/Vol] 0.61 ng/dL 0.76-1.46 [facility] Work Phone: [phone] Globulin (S) [Mass/Vol] 3.9 g/dL 2.2-4.2 [facility] Work Phone: [phone] Urea nitrogen/Creatinine [Mass ratio] 10.0 mg/mg 10-20 [facility] Work Phone: [phone] Laboratory - Hematology and Cell countson 11-09-2021 Erythrocyte distribution width (RBC) [Entitic vol] 42.3 fL 35.1-43.9 [facility] Work Phone: [phone] Erythrocyte distribution width (RBC) [Ratio] 13.2 % 11.6-14.6 [facility] Work Phone: [phone] Immature granulocytes/100 WBC (Bld) 0.400 % 0.0-0.9 [facility] Work Phone: [phone] Comment on above: IG% - Immature Granu locytes (promyelocytes, myelocytes and metamyelocytes) > 1% indicates that a LEFT SHIFT is Present. MCH (RBC) [Entitic mass] 29.1 pg 27.0-32.0 [facility] Work Phone: [phone] Nucleated RBC/100 WBC (Bld) [Ratio] 0 % 0-5 [facility] Work Phone: [phone] MCHC Auto (RBC) [Mass/Vol]on 11-09-2021 MCHC (RBC) [Mass/Vol] 33.3 g/dL 32-36 [facility] Work Phone: No Panel Informationon 11-09 Estimated GFR (MDRD) Amer 100 mL/min >60 [facility] Work Phone: [phone] Comment on above: GFR Calc Estimated GFR (MDRD) Non-Af Amer 83 mL/min >60 [facility] Work Phone: [phone] Comment on above: Non- GFR Calc Thyroid Stimulating Hormone (TSH) 2.36 uIU/mL 0.358-3.74 [facility] Work Phone: Total Iron Binding Capacity 290 ug/dL 250-450 [facility] Work Phone: Vitamin D 25-Hydroxy 37.1 ng/mL [facility] Work Phone: Comment on above: Vitamin D 25(OH) Sta tus Range Deficiency <20 ng/mL (50nmol/L) Insufficiency 20 - 30 ng/mL (50 - 75 nmol/L) Sufficiency 30 - 100 ng/mL (75 - 250 nmol/L) Toxicity >100 ng/mL (>250 nmol/L) Platelets bldon 11-09-2021 Platelets (Bld) [#/Vol] 330 10*3/uL 150-450 [facility] Work Phone: [phone] Serum or plasma albumin chet urement (mass/volume)on 11-09-2021 Albumin [Mass/Vol] 3.7 g/dL 3.2-5.0 [facility] Work Phone: [phone] Serum or plasma albumin/glob ulin mass ratioon 11-09-2021 Albumin/Globulin [Mass ratio] 0.9 {ratio} 0.9-2.4 [facility] Work Phone: [phone] Serum or plasma calcium chet urement (mass/volume)on 11-09-2021 Calcium [Mass/Vol] 9.3 mg/dL 8.5-10.1 [facility] Work Phone: [phone] Serum or plasma cholesterol in HDL measurement (mass/volume)on 11-09-2021 Cholesterol in HDL [Mass/Vol] 43 mg/dL >40 [facility] Work Phone: Comment on above: The drugs N-Acetylcy steine and Metamizole may falsely depress this assay. Reference Range HDL <40 mg/dL Low HDL Cholesterol HDL >or= 60 mg/dL High HDL Cholesterol Serum or plasma cholesterol in VLDL measurement (mass/volume)on 11-09-2021 Cholesterol in VLDL [Mass/Vol] 47 mg/dL 5-40 [facility] Work Phone: Serum or plasma creatinine m easurement (mass/volume)on 11-09-2021 Creatinine [Mass/Vol] 1.00 mg/dL 0.70-1.30 [facility] Work Phone: Comment on above: The validity of the calculated GFR & GFRAA in patients over 70 years has not been determined. Clinical correlation is essential. Serum or plasma low density lipoprotein (LDL) cholesterol measurement (mass/volume)on 11-09-2021 Cholesterol in LDL [Mass/Vol] 171 mg/dL 0-130 [facility] Work Phone: Serum or plasma urea nitroge n measurement (mass/volume)on 11-09-2021 Urea nitrogen [Mass/Vol] 10 mg/dL 7-18 [facility] Work Phone: Thin prep Papanicolaou smear with manual screeningon 11-09-2021 Thin prep Papanicolaou smear with manual screening 18 U/L 15-37 [facility] Work Phone: Thin prep Papanicolaou smear with manual screening 7 5-15 [facility] Work Phone: XR Lumbar spine 3 Viewson Radiology Study observation (narrative) [facility] IMPRESSION: 1. No acute fracture or subluxation. [employer] Supervisor: [facility] Transcribe Date/Time: Sep 20 2021 6:50P Dictated by : KACI TALAMANTES MD This examination was interpreted and the report reviewed and electronically signed by: KACI TALAMANTES MD on Sep 20 2021 6:54PM EST [id number] SE_DIVISION OF RADIOLOGY * * *Final Report* * * DATE OF EXAM: Sep 20 2021 6:46PM WOX 5228 - XR LUMBAR 3V AP/LAT/L5-S1 / PROCEDURE REASON: Acute midline low back pain without sciatica * * * * Physician Interpretation * * * * LUMBAR SPINE X-RAY SERIES HISTORY: Acute midline low back pain without sciatica TECHNIQUE: AP, Lateral, coned-down lateral COMPARISON: None available. RESULT: Alignment: No significant subluxation. Minimal levoconvex curvature Bones: Vertebral bodies and the other included bony structures are negative. Intervertebral discs: Moderate degenerative disc disease at L5-S1. Mild degenerative facet disease in the lower lumbar spine. [id number] SE_DIVISION OF RADIOLOGY Provider, [facility] - 09/20/2021 * * *Final Report* * * DATE OF EXAM: Sep 20 2021 6:46PM WOX 5228 - XR LUMBAR 3V AP/LAT/L5-S1 / PROCEDURE REASON: Acute midline low back pain without sciatica * * * * Physician Interpretation * * * * LUMBAR SPINE X-RAY SERIES HISTORY: Acute midline low back pain without sciatica TECHNIQUE: AP, Lateral, coned-down lateral COMPARISON: None available. RESULT: Alignment: No significant subluxation. Minimal levoconvex curvature Bones: Vertebral bodies and the other included bony structures are negative. Intervertebral discs: Moderate degenerative disc disease at L5-S1. Mild degenerative facet disease in the lower lumbar spine. IMPRESSION IMPRESSION: 1. No acute fracture or subluxation. General Car Yard Supervisor: [facility] Transcribe Date/Time: Sep 20 2021 6:50P Dictated by : KACI TALAMANTES MD This examination was interpreted and the report reviewed and electronically signed by: KACI TALAMANTES MD on Sep 20 2021 6:54PM EST [facility] XR Lumbar spine 3 ViewsOrder ed By: Cc Provider on 09-20-2021 [facility] Order Reconciliationon 08-11 Order Reconciliation Page 1 Discharge Reconciliation Document Reconciliation Type: Discharge requested on behalf of Gustavo Gutierrez (Physician) done by Gustavo Gutierrez) Discharge - Reconciliation: 11-Aug-2021 06:58 by: Gustavo Gutierrez) Home Medications EnteredHOME MEDICATIONS AT DISCHARGE DateReconciliation Comment/ Additional Information Ambien 10 mg oral tablet 1 tab(s) orally once a day (at bedtime) 08-Jun-2021 08:18 Ambien 10 mg oral tablet 1 tab(s) orally once a day (at bedtime) 08-Jun-2021 08:18 Ambien 10 mg oral tablet is continued as Ambien 10 mg oral tablet prazosin 1 mg oral capsule 1 cap(s) orally once a day 08-Jun-2021 08:19 prazosin 1 mg oral capsule 1 cap(s) orally once a day 08-Jun-2021 08:19 prazosin 1 mg oral capsule is continued as prazosin 1 mg oral capsule PROzac 80 milligram(s) orally once a day 11-Aug-2021 06:14 PROzac 80 milligram(s) orally once a day 11-Aug-2021 06:14 PROzac is continued as PROzac Rexulti 1 mg oral tablet 1 tab(s) orally once a day 08-Jun-2021 08:19 Rexulti 1 mg oral tablet 1 tab(s) orally once a day 08-Jun-2021 08:19 Rexulti 1 mg oral tablet is continued as Rexulti 1 mg oral tablet Ritalin 60 milligram(s) orally once a day 08-Jun-2021 08:19 Ritalin 60 milligram(s) orally once a day 08-Jun-2021 08:19 Ritalin is continued as Ritalin Current OrdersDateHOME MEDICATIONS AT DISCHARGE DateReconciliation Comment/ Additional Information HYDROmorphone Injectable (DILAUDID)DOSE = 0.4 mg IntraVenous Push Every 5 Minutes, PRN Pain - Severe (7-10) (PACU)Clinician Notes: Kyra-operative order ONLYMax total of 4 mg regardless of dose. 10-Aug-2021 21:39 HYDROmorphone Injectable is not required Lactated Ringers Infusion IV Bag Volume = 1,000 mL Run at: 100 mL/hr IntraVenous Clinician Notes: Kyra-operative order ONLY 10-Aug-2021 21:39 Lactated Ringers Infusion is not required Lidocaine 1% - Phenylephrine 1.5% Intravitreal SolutionDOSE = 2 mL Intravitreal OnceClinician Notes: To be administered by surgeon 04-Aug-2021 07:11 Lidocaine 1% - Phenylephrine 1.5% Intravitreal is not required Metoclopramide Injectable (REGLAN)DOSE = 10 mg IntraVenous Push Once, PRN persistent PONV if first line ineffectiveClinician Notes: Kyra-operative order ONLY 10-Aug-2021 21:39 Metoclopramide Injectable is not required Midazolam Injectable (VERSED)DOSE = 2 mg IntraVenous Push Once, PRN AnxietyClinician Notes: Kyra-operative order ONLY 10-Aug-2021 21:39 Midazolam Injectable is not required Moxifloxacin 0.5% Ophthalmic. Solution (VIGAMOX)DOSE = 1 mL Left Eye OnceClinician Notes: To be administered by surgeon 04-Aug-2021 07:11 Moxifloxacin 0.5% Ophthalmic. is not required oxyCODONE Immediate Release Tablet (OXYIR, ROXICODONE)DOSE = 5 mg Oral Once, PRN Pain - Mild (1-3) (PACU) when able to take OralClinician Notes: Kyra-operative order ONLY 10-Aug-2021 21:39 oxyCODONE Immediate Release is not required Promethazine IV Piggy Back in Sodium Chloride 0.9% 50 mL (PHENERGAN)DOSE = 6.25 mg Once, PRN PONV, first lineRecommended Infusion Time: 15 minute(s)Clinician Notes: Kyra-operative order ONLY 10-Aug-2021 21:39 Promethazine IV Piggy Back is not required Home Medications Added During Discharge Reconciliation Additional Patient Instructions Follow printed discharge instructions Discharge Discharge Diagnosis< H25.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 Do not remove any midline, if present, without an order from the provider. Discharge Instructions - PHR After your discharge from the hospital, two Summary of Care Documents will be available online in your Personal Health Record (PHR). 1.Consolidated-Clinical Document Architecture (C-CDA) Patient Discharge Summary This document is a summary of your hospital stay to be kept for your reference.2.C-CDA Visit Summary This document is a summary of your hospital stay to be shared with your follow-up providers (doctor, heating element repairer, physical therapist, etc.). Post Procedure Discharge Criteria Criteria: Easily arousable / responding appropriately; Significant complications are absent; SpO2 = or > 92%, or if SpO2 < 92%, maintains within 2% of baseline; Vital signs +/- 20% of preprocedure status; Ambulates without dizziness / age appropriate activity and ambulatory status returns to pre-procedure baseline. 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 (procedure may be cancelled if no truck driver rubbish collector), center location, insurance information Prep Instructions Reviewedyes How to be Addresseddarin Spoken Language PreferredEnglish Source of Informationpatient Stated Reason for Admissionleft eye cataract removal Primary Contact Name and NumberJULIE-FRIEND [phone] Medications Brought to Hospitalno General Health: Weight in kg103.7 kilogram(s) Weight in kfc587.6 pound(s) Weight Methodactual (measured) Scale Typestanding Height in feet5 feet Height in [id number] inch(es) Height in cm177.8 centimeter(s) Height Methodstated BMI (kg/m2)32.803 square meter Patient or Family Member Reaction to Anesthesiano previous reaction; no previous family member reaction Blood Avoidance/Restrictionsb lood borne infection concerns Previous Transfusion Reactionno Health Mgmt: Symptoms/Conditions Managed at Homebehavioral health Behavioral Health Symptoms/Conditionsanxi ety; depression; ADHD/ADD Barriers to Managing Healthnone Relationship/Environ: Lives Withfriend(s) Living Arrangementsapartment Resource/Environmental Concernsnone Anticipated Transition [place] [facility] Anticipated at Transitionnone Tobacco Use: Tobacco Useno Pre-op Checklist: Arrival [id number] Arrival Time06:00 Procedure TypeLeft EYE CATARACT NPOyes Last Food [id number] 18:00 Last Clear Fluid [id number] 22:00 ID Band On Patientpatient ID (name) Consent Signedyes H&P Completeyes Anesthesia Assessment Completedyes EKG Performednot ordered Chest X-Ray Performednot ordered Preop Antibioticsnot ordered COVID 19 Results in Last 7 daysNEGATIVE Type and Screen Resultedn/a Chlorhexadine Bath Givennot applicable Nasal Antiseptic Appliednot applicable Soap and Water Bath the Night Before Surgeryyes Hair Washed with Shampooyes Bowel Prepno Surgical Site Infection Preventionyes Pain Scales and Managementyes Additional Information: Information Review: Allergies, Home Meds and Significant Events have been Reviewed and Verified with Patient/Familyyes Allergy, Intolerance, Adverse Event: Allergies: No Known Allergies: Active Electronic Signatures: Alpa Sorto (RN) (Signed 11-Aug-2021 06:17) Authored: Initial Info, General Health, Health Mgmt, Pre-op Checklist, Additional Information Radha Hoffman (RN) (Signed 09-Aug-2021 07:07) Authored: Initial Info, General Health, Health Mgmt, Relationship/Environ, Tobacco Use, Pre-op Checklist, Additional Information Last Updated: 11-Aug-2021 06:17 by Alpa Sorto (RN) [facility] XR Hand - right PA and Later al and Obliqueon 07-07-2021 IMPRESSION: Unremarkable radiograph General Car Yard Supervisor: PSCB Transcribe Date/Time: Jul 07 2021 3:24P Dictated by : JAZLYN RUBY MD This examination was interpreted and the report reviewed and electronically signed by: JAZLYN RUBY MD on Jul 07 2021 3:25PM [facility] DIVISION OF RADIOLOGY * * *Final Report* * * DATE OF EXAM: Jul 07 2021 9:57AM WOX 5346 - XR HAND 3V PA/LAT/OBL RT / PROCEDURE REASON: Mass of hand, right * * * * Physician Interpretation * * * * Right hand HISTORY: 51 years old Clinical information: Mass of hand, right Right doral hand lump x several months without injury TECHNIQUE: Images: XR HAND 3V PA/LAT/OBL RT Comparison: None. RESULT: Findings: No plain film findings of a mass to correspond to the areas of clinical concern. Joint spaces are unremarkable. No soft tissue calcification. DIVISION OF RADIOLOGY Provider, [facility]avo [facility] - 07/07/2021 * * *Final Report* * * DATE OF EXAM: Jul 07 2021 9:57AM WOX 5346 - XR HAND 3V PA/LAT/OBL RT / PROCEDURE REASON: Mass of hand, right * * * * Physician Interpretation * * * * Right hand HISTORY: 51 years old Clinical information: Mass of hand, right Right doral hand lump x several months without injury TECHNIQUE: Images: XR HAND 3V PA/LAT/OBL RT Comparison: None. RESULT: Findings: No plain film findings of a mass to correspond to the areas of clinical concern. Joint spaces are unremarkable. No soft tissue calcification. IMPRESSION IMPRESSION: Unremarkable radiograph General Car Yard Supervisor: PSCB Transcribe Date/Time: Jul 07 2021 3:24P Dictated by : JAZLYN RUBY MD This examination was interpreted and the report reviewed and electronically signed by: JAZLYN RUBY MD on Jul 07 2021 3:25PM [facility] Radiology Study observation (narrative) Abilio qureshi [facility] XR Hand - right PA and Later al and ObliqueOrdered By: Ccf Provider on 07-07-2021 [facility] CORONAVIRUS 2019, SCREEN ASY MPTOMATICon 06-29-2021 DATE OF SYMPTOM ONSET [[id number]]? Canceled [facility] Comment on above: Order Comment: TEST CORONAVIRUS 2018, SCREEN ASYMPTOMATIC WAS CANCELLED, 06/29/2021 15:15 PT DID NOT HAVE TEST DONE. Performed By: #### C OVSC #### [facility] [id number] [place] [address] SARS-CoV-2 (COVID-19) RNA CIARA+probe Ql (Unsp spec) Canceled [facility] Comment on above: Order Comment: TEST CORONAVIRUS 2018, SCREEN ASYMPTOMATIC WAS CANCELLED, 06/29/2021 15:15 PT DID NOT HAVE TEST DONE. Result Comment: . This assay is designed to detect the N, ORF1ab and/or S genes of SARS-CoV-2 via nucleic acid amplification. A Negative (NOT DETECTED) result does not preclude 2019-nCoV infection since the adequacy of sample collection and/or low viral burden may result in presence of viral nucleic acids below the clinical sensitivity of this test method. Negative (NOT DETECTED) result should not be used as the sole basis for treatment or other patient management decisions. Rather negative results should be combined with clinical observations, patient history, and epidemiological information to make patient management decisions. Fact sheet for providers: https://www.fda.gov/media/638677/download Fact sheet for patients: https://www.fda.gov/media/431610/download This test has received FDA Emergency Use Authorization (EUA) and has been verified by [facility] ([facility]). This test is only authorized for the duration of time that circumstances exist to justify the authorization of the emergency use of in vitro diagnostic tests for the detection of SARS-CoV-2 virus and/or diagnosis of COVID-19 infection under section 564(b)(1) of the Act, 21 U.S.C. 360bbb-3(b)(1), unless the authorization is terminated or revoked sooner. [facility] is certified under CLIA-88 as qualified to perform high complexity testing. Testing is performed in the [facility] laboratories located at [address] [place] [address]. Performed By: #### C OVSC #### [address] [place] [address] CORONAVIRUS 2019, SCREEN ASY MPTOMATICon 06-01-2021 Lab Specimen Source Nasal, Nasopharyngeal [facility] Comment on above: Order Comment: TEST CORONAVIRUS 2018, SCREEN ASYMPTOMATIC WAS CANCELLED, 06/29/2021 15:15 PT DID NOT HAVE TEST DONE. Performed By: #### C OVSC #### [place] [address] Vital Signs Date Time Vital Sign Value Performing Clinician Facility 12-08-2024 14:03-0400 Body height 177.8 cm [facility] Work Phone: [facility] 12-08-2024 14:03-0400 Body temperature 96.2 [degF] [facility] Work Phone: 1(232)692-623375 [place] [address] 12-08-2024 14:03-0400 Diastolic blood pressure 81 mm[Hg] [facility] Work Phone: 3(284)448-682475 [place] [address] 12-08-2024 14:03-0400 Heart rate 80 /min [facility] Work Phone: 6(702)496-112875 [place] [address] 12-08-2024 14:03-0400 Respiratory rate 26 /min [facility] Work Phone: 9(141)809-620075 [place] [address] 12-08-2024 14:03-0400 SaO2% (BldA) [Mass fraction] 96 % [facility] Work Phone: 9(927)819-481475 [place] [address] 12-08-2024 14:03-0400 Systolic blood pressure 165 mm[Hg] [facility] Work Phone: 0(242)997-622975 [place] [address] 08-29-2024 15:15-0400 Body temperature 98.1 [degF] [facility] Work Phone: 5(219)769-353775 [place] [address] 08-29-2024 15:15-0400 Diastolic blood pressure 68 mm[Hg] [facility] Work Phone: 3(211)655-944775 [place] [address] 08-29-2024 15:15-0400 Heart rate 66 /min [facility] Work Phone: 0(937)352-349475 [place] [address] 08-29-2024 15:15-0400 Respiratory rate 16 /min [facility] Work Phone: 5(736)512-472575 [place] [address] 08-29-2024 15:15-0400 SaO2% (BldA) [Mass fraction] 93 % [facility] Work Phone: 4(743)338-911975 [place] [address] 08-29-2024 15:15-0400 Systolic blood pressure 144 mm[Hg] [facility] Work Phone: 1(862)558-738875 [place] [address] 08-28-2024 16:00-0400 Body height 177.8 cm [facility] Work Phone: 4(456)776-758575 [place] [address] 08-28-2024 16:00-0400 Body weight 107 kg [facility] Work Phone: 8(579)352-464775 [place] [address] 08-27-2024 18:05-0400 Body mass index (BMI) [Ratio] 33.8 kg/m2 [facility] Work Phone: 9(428)648-940875 [place] [address] 08-27-2024 17:15-0400 Inhaled oxygen flow rate 2 L/min [facility] Work Phone: 0(439)165-278475 [place] [address] 08-27-2024 13:25-0400 Body temperature 98 [degF] [facility] Work Phone: 7(602)393-554175 [place] [address] 08-27-2024 13:25-0400 Diastolic blood pressure 77 mm[Hg] [facility] Work Phone: 4(828)843-192575 [place] [address] 08-27-2024 13:25-0400 Heart rate 62 /min [facility] Work Phone: 0(480)704-861675 [place] [address] 08-27-2024 13:25-0400 Respiratory rate 16 /min [facility] Work Phone: 5(940)981-684875 [place] [address] 08-27-2024 13:25-0400 SaO2% (BldA) [Mass fraction] 94 % [facility] Work Phone: 4(759)759-767275 [place] [address] 08-27-2024 13:25-0400 Systolic blood pressure 139 mm[Hg] [facility] Work Phone: 0(577)925-592675 [place] [address] 08-27-2024 10:21-0400 Body height 177.8 cm [facility] Work Phone: 2(450)219-060575 [place] [address] 08-27-2024 10:21-0400 Body mass index (BMI) [Ratio] 33.8 kg/m2 [facility] Work Phone: 7(758)152-628475 [place] [address] 08-27-2024 10:21-0400 Body weight 107 kg [facility] Work Phone: 7(809)935-781875 [place] [address] 10-16-2023 13:48-0400 Body mass index (BMI) [Ratio] 35.49 kg/m2 Daxa Norman APRN.CNP Work Phone: [facility] 10-16-2023 13:48-0400 Body temperature 98.2 [degF] Daxa Norman BARK SKINNER.DRY MILL OPERATOR Work Phone: [facility] 10-16-2023 13:48-0400 Body weight 112.2 kg Daxa Norman BARK SKINNER.DRY MILL OPERATOR Work Phone: [facility] 10-16-2023 13:48-0400 Diastolic blood pressure 60 mm[Hg] Daxa Norman BARK SKINNER.DRY MILL OPERATOR Work Phone: [facility] 10-16-2023 13:48-0400 Heart rate 84 /min Daxa Norman BARK SKINNER.DRY MILL OPERATOR Work Phone: [facility] 10-16-2023 13:48-0400 Respiratory rate 16 /min Daxa Norman BARK SKINNER.DRY MILL OPERATOR Work Phone: [facility] 10-16-2023 13:48-0400 SaO2% (BldA) [Mass fraction] 95 % Daxa Norman BARK SKINNER.DRY MILL OPERATOR Work Phone: [facility] 10-16-2023 13:48-0400 Systolic blood pressure 104 mm[Hg] Daxa Norman BARK SKINNER.DRY MILL OPERATOR Work Phone: [facility] 08-03-2023 09:24-0400 Body height 175.3 cm Celina Bliss MD Work Phone: [facility] 08-03-2023 09:24-0400 Body mass index (BMI) [Ratio] 37.21 kg/m2 Celina Bliss MD Work Phone: [facility] 08-03-2023 09:24-0400 Body weight 114.31 kg Celina Bliss MD Work Phone: [facility] 06-01-2023 11:18-0500 Body height 175.3 cm Oliva Rios MD Work Phone: [facility] 06-01-2023 11:18-0500 Body mass index (BMI) [Ratio] 37.21 kg/m2 Oliva Rios MD Work Phone: [facility] 06-01-2023 11:18-0500 Body weight 114.31 kg Oliva Rios MD Work Phone: [facility] 06-01-2023 11:18-0500 SaO2% (BldA) [Mass fraction] 98 % Oliva Rios MD Work Phone: [facility] 06-01-2023 11:17-0500 Body temperature 96.69 [degF] Oliva Rios MD Work Phone: [facility] 06-01-2023 11:17-0500 Diastolic blood pressure 54 mm[Hg] Oliva Rios MD Work Phone: [facility] 06-01-2023 11:17-0500 Heart rate 71 /min Oliva Rios MD Work Phone: [facility] 06-01-2023 11:17-0500 Respiratory rate 18 /min Oliva Rios MD Work Phone: [facility] 06-01-2023 11:17-0500 Systolic blood pressure 126 mm[Hg] Oliva Rios MD Work Phone: [facility] 04-20-2023 12:42-0500 Body temperature 98.7 [degF] [facility] Work Phone: [facility] 04-20-2023 12:42-0500 Diastolic blood pressure 64 mm[Hg] [facility] Work Phone: [facility] 04-20-2023 12:42-0500 Heart rate 70 /min [facility] Work Phone: [facility] 04-20-2023 12:42-0500 Respiratory rate 18 /min [facility] Work Phone: [facility] 04-20-2023 12:42-0500 SaO2% (BldA) [Mass fraction] 99 % [facility] Work Phone: [facility] 04-20-2023 12:42-0500 Systolic blood pressure 134 mm[Hg] [facility] Work Phone: [facility] 04-20-2023 01:49-0500 Body mass index (BMI) [Ratio] 36 kg/m2 [facility] Work Phone: [facility] 04-20-2023 01:49-0500 Body weight 114 kg [facility] Work Phone: [facility] 04-19-2023 19:10-0500 Body height 177.8 cm [facility] Work Phone: [facility] 10-06-2022 19:40-0400 Body height 177.8 cm [facility] 10-06-2022 19:40-0400 Body mass index (BMI) [Ratio] 30.4 kg/m2 [facility] 10-06-2022 19:40-0400 Body temperature 97.9 [degF] [facility] 10-06-2022 19:40-0400 Body weight 96.16 kg [facility] 10-06-2022 19:40-0400 Diastolic blood pressure 96 mm[Hg] [facility] 10-06-2022 19:40-0400 Heart rate 95 /min [facility] 10-06-2022 19:40-0400 Respiratory rate 16 /min [facility] 10-06-2022 19:40-0400 SaO2% (BldA) [Mass fraction] 97 % [facility] 10-06-2022 19:40-0400 Systolic blood pressure 119 mm[Hg] [facility] 10-03-2022 07:56-0400 Respiratory rate 14 /min [facility] 10-03-2022 06:00-0400 Body temperature 97.1 [degF] [facility] 10-03-2022 06:00-0400 Diastolic blood pressure 58 mm[Hg] [facility] 10-03-2022 06:00-0400 Heart rate 62 /min [facility] 10-03-2022 06:00-0400 SaO2% (BldA) [Mass fraction] 94 % [facility] 10-03-2022 06:00-0400 Systolic blood pressure 107 mm[Hg] [facility] 06-12-2023 16:38-0400 Body mass index (BMI) [Ratio] 31.4 kg/m2 [facility] 10-02-2022 16:38-0400 Body weight 96.61 kg [facility] 10-02-2022 10:10-0400 Body temperature 97.6 [degF] [facility] 10-02-2022 10:10-0400 Diastolic blood pressure 76 mm[Hg] [facility] 10-02-2022 10:10-0400 Heart rate 72 /min [facility] 10-02-2022 10:10-0400 Respiratory rate 14 /min [facility] 10-02-2022 10:10-0400 SaO2% (BldA) [Mass fraction] 100 % [facility] 10-02-2022 10:10-0400 Systolic blood pressure 136 mm[Hg] [facility] 10-02-2022 08:29-0400 Body mass index (BMI) [Ratio] 29.9 kg/m2 [facility] 10-02-2022 08:29-0400 Body weight 91.6 kg [facility] 10-02-2022 03:57-0400 Respiratory rate 16 /min [facility] 10-02-2022 01:00-0400 Diastolic blood pressure 55 mm[Hg] [facility] 10-02-2022 01:00-0400 Heart rate 79 /min [facility] 10-02-2022 01:00-0400 SaO2% (BldA) [Mass fraction] 99 % [facility] 10-02-2022 01:00-0400 Systolic blood pressure 106 mm[Hg] [facility] 10-01-2022 20:41-0400 Body mass index (BMI) [Ratio] 32.7 kg/m2 [facility] 10-01-2022 20:41-0400 Body temperature 98.2 [degF] [facility] 10-01-2022 20:41-0400 Body weight 100.3 kg [facility] 09-26-2022 06:52-0400 Diastolic blood pressure 70 mm[Hg] [facility] 09-26-2022 06:52-0400 Heart rate 75 /min [facility] 09-26-2022 06:52-0400 Respiratory rate 18 /min [facility] 09-26-2022 06:52-0400 Systolic blood pressure 136 mm[Hg] [facility] 09-26-2022 02:45-0400 SaO2% (BldA) [Mass fraction] 100 % [facility] 09-25-2022 10:53-0400 Body height 175.26 cm [facility] 09-25-2022 10:53-0400 Body mass index (BMI) [Ratio] 30.2 kg/m2 [facility] 09-25-2022 10:53-0400 Body temperature 98 [degF] [facility] 09-25-2022 10:53-0400 Body weight 92.98 kg [facility] 09-24-2022 00:38-0400 Body height 175.26 cm [facility] 09-24-2022 00:38-0400 Body mass index (BMI) [Ratio] 32.1 kg/m2 [facility] 09-24-2022 00:38-0400 Body temperature 97.9 [degF] [facility] 09-24-2022 00:38-0400 Body weight 98.5 kg [facility] 09-24-2022 00:38-0400 Diastolic blood pressure 65 mm[Hg] [facility] 09-24-2022 00:38-0400 Heart rate 91 /min [facility] 09-24-2022 00:38-0400 Respiratory rate 18 /min [facility] 09-24-2022 00:38-0400 SaO2% (BldA) [Mass fraction] 95 % [facility] 09-24-2022 00:38-0400 Systolic blood pressure 120 mm[Hg] [facility] 09-23-2022 21:37-0400 Diastolic blood pressure 75 mm[Hg] [facility] 09-23-2022 21:37-0400 Heart rate 67 /min [facility] 09-23-2022 21:37-0400 Respiratory rate 20 /min [facility] 09-23-2022 21:37-0400 SaO2% (BldA) [Mass fraction] 93 % [facility] 09-23-2022 21:37-0400 Systolic blood pressure 133 mm[Hg] [facility] 09-23-2022 21:25-0400 Body height 175.26 cm [facility] 09-23-2022 21:25-0400 Body mass index (BMI) [Ratio] 31.7 kg/m2 [facility] 09-23-2022 21:25-0400 Body temperature 97 [degF] [facility] 09-23-2022 21:25-0400 Body weight 97.4 kg [facility] 03-06-2022 21:37-0500 Diastolic blood pressure 68 mm[Hg] [facility] Work Phone: 03-06-2022 21:37-0500 Heart rate 90 /min [facility] Work Phone: 03-06-2022 21:37-0500 Respiratory rate 15 /min [facility] Work Phone: 03-06-2022 21:37-0500 SaO2% (BldA) [Mass fraction] 98 % [facility] Work Phone: 03-06-2022 21:37-0500 Systolic blood pressure 110 mm[Hg] [facility] Work Phone: 03-06-2022 18:35-0500 Body height 175.26 cm [facility] Work Phone: 03-06-2022 18:35-0500 Body mass index (BMI) [Ratio] 33.3 kg/m2 [facility] Work Phone: 03-06-2022 18:35-0500 Body temperature 98.3 [degF] [facility] Work Phone: 03-06-2022 18:35-0500 Body weight 102.2 kg [facility] Work Phone: 11-23-2021 22:34-0400 Diastolic blood pressure 60 mm[Hg] [facility] Work Phone: 11-23-2021 22:34-0400 Heart rate 87 /min [facility] Work Phone: 11-23-2021 22:34-0400 Respiratory rate 18 /min [facility] Work Phone: 11-23-2021 22:34-0400 Systolic blood pressure 154 mm[Hg] [facility] Work Phone: 11-23-2021 20:55-0400 Body height 175.26 cm [facility] Work Phone: 11-23-2021 20:55-0400 Body mass index (BMI) [Ratio] 34.2 kg/m2 [facility] Work Phone: 11-23-2021 20:55-0400 Body temperature 98.2 [degF] [facility] Work Phone: 11-23-2021 20:55-0400 Body weight 105.23 kg [facility] Work Phone: 11-23-2021 20:55-0400 SaO2% (BldA) [Mass fraction] 97 % [facility] Work Phone: 09-18-2021 09:07-0400 Body temperature 98.8 [degF] Janelle Athy PA-C Work Phone: [facility] 09-18-2021 09:07-0400 Body weight 108.86 kg Janelle Athy PA-C Work Phone: [facility] 09-18-2021 09:07-0400 Diastolic blood pressure 82 mm[Hg] Janelle Athy PA-C Work Phone: [facility] 09-18-2021 09:07-0400 Heart rate 85 /min Janelle Athy PA-C Work Phone: [facility] 09-18-2021 09:07-0400 Respiratory rate 20 /min Janelle Athy PA-C Work Phone: [facility] 09-18-2021 09:07-0400 SaO2% (BldA) [Mass fraction] 97 % Janelle Prabhakar PA-C Work Phone: [facility] 09-18-2021 09:07-0400 Systolic blood pressure 130 mm[Hg] Janelle Aki PA-C Work Phone: [facility] 08-02-2021 14:44-0400 Diastolic blood pressure 77 mm[Hg] Gustavo Gutierrez MD Work Phone: [facility] 08-02-2021 14:44-0400 Heart rate 60 /min Gustavo Gutierrez MD Work Phone: [facility] 08-02-2021 14:44-0400 Systolic blood pressure 113 mm[Hg] Gustavo Gutierrez MD Work Phone: [facility] Encounters Encounter Date Encounter Type Care Provider Facility Start: 12-08-2024 End: 12-08-2024 Emergency department patient visit [facility] Work Phone: -Emergency Department Work Phone: Start: 08-29-2024 Non-patient / Non-visit Dr. Demetrius Hernández MD -[facility] Start: 08-28-2024 Non-patient / Non-visit Dr. Demetrius Hernández MD -[facility] Start: 08-27-2024 ambulatory Demetrius Jefferson lity:ZULEYKA Start: 08-27-2024 End: 08-29-2024 Evaluation and management of inpatient Dr. Demetrius Hernández MD -Medical Surgical 3 Work Phone: Start: 08-27-2024 Admission to [facility] Dr. Demetrius Hernnádez MD -[facility] Work Phone: Start: 08-27-2024 ambulatory [facility] Work Phone: [facility] Work Phone: Start: 08-27-2024 Non-patient / Non-visit Dr. Demetrius Hernández MD -[facility] Start: 01-01-2024 End: 01-01-2024 ambulatory [facility] Facility:[facility] [place] Start: 12-20-2023 ambulatory [facility] Facility:[facility] [place] Start: 11-06-2023 End: 11-06-2023 ambulatory [facility] Facility:[facility] Start: 11-02-2023 Encounter for genera l adult medical examination without abnormal findings Ed Physician Provider [facility] Start: 10-20-2023 End: 10-20-2023 Emergency department patient visit Daxa Beltran Facility:[facility] Start: 10-16-2023 End: 10-16-2023 Emergency department patient visit [facility] Facility:[facility] Start: 10-16-2023 End: 10-16-2023 Patient encounter procedure Daxa Norman APRN.CNP Work Phone: [facility] Comment on above: Cellulitis of hand ( Primary Dx); Infected wound Start: 10-16-2023 End: 10-16-2023 ambulatory Facility:[facility] Start: 10-11-2023 End: 10-11-2023 Emergency department patient visit [facility] Facility:[facility] Start: 08-08-2023 End: 08-08-2023 Emergency department patient visit ANKUSH ANN [facility] Start: 08-03-2023 End: 08-04-[address] [facility] Start: 08-03-2023 End: 08-03-2023 Office outpatient new 30 minutes Celina Bliss MD Work Phone: [facility] Comment on above: Lumbar pain (Primary Dx); DDD (degenerative disc disease), lumbar; Lumbar radiculitis Start: 08-03-2023 End: 08-03-2023 Subsequent hospital visit by physician Celina Bliss MD Work Phone: [facility] Lesly KIERAN Quiroz Comment on above: Lumbar pain Start: 07-04-2023 End: 07-05-2023 Emergency department patient visit INOCENCIA DYER [facility] Start: 07-04-2023 End: 07-04-2023 Emergency department patient visit [facility] Start: 07-04-2023 End: 07-04-2023 Subsequent hospital visit by physician Ryan Vasc [employer] [facility] Vascular Lab Comment on above: Arrived Start: 06-14-2023 End: 06-15-2023 ambulatory SOLEDAD CUEVAS [facility] Start: 06-14-2023 End: 06-14-2023 Subsequent hospital visit by physician Soledad Cuevas DPM Work Phone: [facility] X-ray Imaging Comment on above: Calcaneal spur, righ t foot; Calcaneal spur, left foot; Pain in right foot; Pain in left foot Calcaneal spur, righ t foot (Primary Dx); Calcaneal spur, left foot; Pain in right foot; Pain in left foot Start: 06-01-2023 End: 06-01-2023 Emergency department patient visit OLIVA RIOS [facility] Start: 06-01-2023 End: 06-01-2023 Emergency department patient visit Oliva Rios MD Work Phone: [facility] ED Comment on above: Heel pain, bilateral (Primary Dx) Start: 04-20-2023 Non-patient / Non-visit [facility] Work Phone: [facility] Work Phone: Start: 04-19-2023 End: 04-20-2023 Evaluation and management of inpatient [facility] Work Phone: [facility]-Medical Surgical 3 Work Phone: Start: 04-19-2023 End: 04-20-2023 observation encounter [facility] Work Phone: [facility] Work Phone: Start: 10-06-2022 End: 10-06-2022 Emergency department patient visit [facility] Start: 10-02-2022 End: 10-03-2022 Emergency department patient visit [facility] Start: 10-02-2022 End: 10-02-2022 Emergency department patient visit [facility] Start: 10-01-2022 End: 10-02-2022 Emergency department patient visit [facility] Start: 09-25-2022 End: 09-26-2022 Emergency department patient visit [facility] Start: 09-24-2022 End: 09-24-2022 Departed Referred [facility] Start: 09-24-2022 End: 09-24-2022 [facility] Start: 09-23-2022 End: 09-23-2022 [facility] Start: 03-06-2022 End: 03-06-2022 Emergency department patient visit [facility] Start: 11-23-2021 End: 11-23-2021 Emergency department patient visit [facility] Start: 11-09-2021 End: 11-09-2021 Patient encounter procedure [facility]-Laboratory Start: 09-21-2021 Telephone encounter Jos aparicio APRN.CNP Work Phone: [facility] Comment on above: Results Start: 09-20-2021 End: 09-20-2021 Subsequent hospital visit by physician Xr [facility] Work Phone: Radiology Comment on above: Acute midline low ba ck pain without sciatica [M54.50] Start: 09-18-2021 End: 09-18-2021 Patient encounter procedure Janelle Prabhakar PA-C Work Phone: [facility] Comment on above: Acute midline low ba ck pain without sciatica (Primary Dx) Start: 08-12-2021 End: 08-12-2021 Patient encounter procedure Gustavo Gutierrez MD Work Phone: Ophthalmology Comment on above: Status post cataract extraction and insertion of intraocular lens of right eye (Primary Dx); Status post cataract extraction and insertion of intraocular lens of left eye Start: 08-11-2021 End: 08-11-[address] 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); Status post cataract extraction and insertion of intraocular lens of right eye; Regular astigmatism, bilateral; Pupillary miosis; Anxiety Start: 07-18-2021 Refill Gustavo rolon MD Work Phone: Ophthalmology Comment on above: Refill Request Start: 07-07-2021 End: 07-07-2021 Subsequent hospital visit by physician Margareth [facility] Work Phone: Radiology Comment on above: Mass of hand, right [R22.31] Procedures Date Procedure Procedure Detail Performing Clinician Start: 08-29-2024 Estimated creatinine clearance [facility] Work Phone: Start: 08-27-2024 Umbilical hernioplasty [facility] Work Phone: Start: 08-27-2024 Computed tomography of abdomen and pelvis with intravenous contrast [facility] Work Phone: Start: 08-27-2024 Estimated creatinine clearance [facility] Work Phone: Start: 07-04-2023 Dup-scan xtr veins unilateral/limited study Inocencia Dyer PA-C Work Phone: Start: 04-19-2023 Plain chest X-ray [facility] Work Phone: Start: 04-19-2023 CT of head without contrast [facility] Work Phone: Start: 10-06-2022 CT of head without contrast Start: 10-01-2022 CT of head without contrast Start: 03-06-2022 X-ray of lumbar spin e, two or three views Start: 03-06-2022 CT cervical spine wi thout contrast Start: 03-06-2022 CT of head without contrast Start: 09-20-2021 Radex spine lumbosac ral 2/3 views Janelle Prabhakar PA-C Work Phone: Start: 08-30-2021 Adult depression scr eening assessment aJnelle Prabhakar PA-C Work Phone: Start: 07-07-2021 Radex hand minimum 3 views Ramiro Bonilla MD Work Phone: Start: 08-06-2018 Lipid 1996 panel - S negrito or Plasma Daxa Norman APRN.DRY MILL OPERATOR Work Phone: Plan of Treatment Date Care Activity Detail Author Start: 09-24-2032 DTaP/Tdap/Td Vaccine s (2 - Td or Tdap) DTaP/Tdap/Td Vaccines (2 - Td or Tdap) [facility] Start: 09-24-2032 Urine microalbumin profile DTaP,Tdap,Td Vaccine (3 - Td or Tdap) [facility] Start: 2028 RSV Immunization age d 60 or older (1 - 1-dose 60+ series) RSV Immunization aged 60 or older (1 - 1-dose 60+ series) [facility] Start: 08-29-2024 Patient discharge [facility] Start: 08-29-2024 [facility] Start: 08-28-2024 Nil by mouth [facility] Start: 08-27-2024 Following clinical pathway protocol [facility] Start: 08-27-2024 Application of intermittent pneumatic compression device [facility] Start: 08-27-2024 Following clinical pathway protocol [facility] Start: 08-27-2024 Taking patient vital signs [facility] Start: 08-27-2024 [facility] Start: 08-27-2024 Admission procedure [facility] Start: 08-27-2024 Ambulation without limitation [facility] Start: 08-27-2024 Umbilical hernioplasty Hernia, Umbilical Repair w/ Mesh (Not Applicable) [facility] Start: 08-27-2024 Hospital admission, emergency, from emergency room, medical nature [facility] Start: 08-27-2024 [facility] Start: 08-27-2024 [facility] Start: 12-23-2023 Covid-19 Vaccine ( season) Covid-19 Vaccine ( season) [facility] Start: 12-23-2023 Influenza vaccination S [facility] Start: 08-09-2023 End: 08-09-2023 ambulatory 08/09/2023 10:00 AM EDT Evaluation [facility] Therapy at [address] [place] [id number] Celina Bliss MD [address] [place] [address] [place] [address] Alanna Mayberry, PT [facility] at [facility] Start: 08-07-2023 Lipid panel Lipid Screening [facility] Start: 08-07-2023 LIPID SCREEN LIPID SCREEN [facility] Start: 08-02-2023 End: 08-01-2024 XR Lumbar spine Views W flexion and W extension XR lumbar spine 4-5 view Imaging Routine Lumbar pain Expected: 08/02/2023, Expires: 08/01/2024 [employer] Work Phone: Comment on above: Expected: 08/02/2023 , Expires: 08/01/2024 Start: 04-23-2023 Behavioral Health Screening Behavioral Health Screening [facility] Start: 04-20-2023 Patient discharge [facility] Start: 04-20-2023 Admission procedure [facility] Start: 04-20-2023 Referral to service [facility] Start: 04-19-2023 Following clinical pathway protocol [facility] Start: 04-19-2023 Aspiration precautions [facility] Start: 04-19-2023 Assessment of risk o f venous thromboembolism [facility] Start: 04-19-2023 Fall prevention [facility] Start: 04-19-2023 Incentive spirometry [facility] Start: 04-19-2023 Inhalation therapy procedure [facility] Start: 04-19-2023 Insertion of cathete r into peripheral vein [facility] Start: 04-19-2023 Introduction of urin tutu catheter [facility] Start: 04-19-2023 Measuring intake and output [facility] Start: 04-19-2023 Oxygen therapy [facility] Start: 04-19-2023 Providing care accor ding to standard [facility] Start: 04-19-2023 Provision of activit y privileges [facility] Start: 04-19-2023 Referral to service [facility] Start: 04-19-2023 Tobacco use cessatio n education [facility] Start: 04-19-2023 [facility] Start: 04-19-2023 Admission procedure [facility] Start: 2023 Prostate specific an tigen measurement Prostate Cancer Screening Discussion [facility] Start: 12-22-2022 COVID-19 Vaccine ( season) COVID-19 Vaccine ( season) [facility] Start: 12-22-2022 Influenza vaccination Influenza Vacc ine (#1) [facility] Start: 10-02-2022 Suicide precautions [facility] Start: 10-02-2022 Referral to service [facility] Start: 10-02-2022 Suicide precautions [facility] Start: 10-02-2022 Blood count complete auto&auto difrntl wbc COMPLETE CBC W/AUTO DIFF WBC [facility] Start: 10-02-2022 Comprehensive metabo lic panel COMPREHEN METABOLIC PANEL [facility] Start: 10-02-2022 Drug screen quantita tive alcohols DRUG SCREEN QUANTALCOHOLS [facility] Start: 10-02-2022 Drug tst prsmv instr mnt chem analyzers pr date DRUG TEST PRSMV CHEM ANLYZR [facility] Start: 10-02-2022 Smpl repair scalp/neck/ax/genit/trunk 2.6-7.5cm RPR S/N/AX/GEN/TRNK2.6-7.5C M [facility] Start: 10-01-2022 Assay of troponin quantitative ASSAY OF TROPONIN QUANT [facility] Start: 10-01-2022 Ct head/brain w/o contrast material CT HEAD/BRAIN W/O DYE [facility] Start: 10-01-2022 Tdap vaccine 7 yrs/> im TDAP VACCINE 7 YRS/> IM [facility] Start: 10-01-2022 Urnls dip stick/tabl et reagent auto microscopy URINALYSIS AUTO W/SCOPE [facility] Start: 09-25-2022 Suicide precautions [facility] Start: 09-24-2022 Referral to service [facility] Start: 09-24-2022 Suicide precautions [facility] Start: 09-23-2022 Blood chemistry [facility] Start: 08-30-2022 Adult depression screening assessment DEPRESSION SCREENING [facility] Start: 12-22-2021 Influenza vaccination INFLUENZ A (Season Ended) [facility] Start: 08-06-2021 DIABETES SCREEN DIABETES SCREEN [facility] Start: 08-06-2021 Diabetes Screening Diabetes Screenin g [facility] Start: 12-22-2020 Influenza vaccination INFLUENZA (#1) [facility] Start: 2018 SHINGRIX VACCINE (1 of 2) SCOTT GRIX VACCINE (1 of 2) [facility] Start: 2018 Zoster Vaccines (1 of 2) Zoste r Vaccines (1 of 2) [facility] Start: 2013 COLOGUARD (FIT-DNA) COLOGUARD (FIT-D NA) [facility] Start: 2013 Colonoscopy COLONOSCOPY [facility] Start: 2013 COLORECTAL CANCER SCREENING COLORECTAL CANCER SCREENING [facility] Start: [address] COLONOGRAPHY [facility] Start: 2013 FECAL OCCULT BLOOD FECAL OCCULT BLOO D [facility] Start: 2013 Screening for malign ant neoplasm of colon [facility] Start: 2013 SIGMOIDOSCOPY SIGMOIDOSCOPY [facility] Start: 1987 Hepatitis B Vaccine (1 of 3 - 19+ 3-dose series) Hepatitis B Vaccine (1 of 3 - 19+ 3-dose series) [facility] Start: 1987 Hepatitis B Vaccines (1 of 3 - 19+ 3-dose series) Hepatitis B Vaccines (1 of 3 - 19+ 3-dose series) [facility] Start: 1987 Urine microalbumin profile DTAP,TDAP,TD (1 - Tdap) [facility] Start: 1986 Depression Screening Depression Scre ening [facility] Start: 1986 Diabetes mellitus screening Diabetes Screening [facility] Start: 1986 HEPATITIS C SCREENING HEPATITIS C [facility] Start: 1986 Hepatitis C screening Hepatitis C [facility] Start: 1986 HIV SCREENING HIV SCREENING [facility] Start: 1980 Adult depression screening assessment DEPRESSION SCREENING [facility] Start: 1973 COVID-19 VACCINE (#1) COVID-19 VACCI NE (#1) [facility] Start: 1973 COVID-19 VACCINE (1) COVID-19 VACCIN E (1) [facility] Start: 1969 MMR Vaccines (1 of 1 - Standard series) MMR Vaccines (1 of 1 - Standard series) [facility] Start: 1968 COVID-19 Vaccine (#1) COVID-19 Vacci ne (#1) [facility] Start: 1968 Hepatitis B Vaccines (1 of 3 - 3-dose series) Hepatitis B Vaccines (1 of 3 - 3-dose series) [facility] Start: 1968 HIV screening HIV Screening [facility] Start: 1968 Lipid panel Lipid Panel [facility] Start: 1968 Screening for malign ant neoplasm of colon [facility] Amphetamine [Mass/vo lume] in Urine [facility] Anion gap measurement [facility] Benzodiazepine measurement, urine [facility] BUN/Creatinine ratio [facility] Calcium [Mass/volume ] in Serum or Plasma [facility] Carbon dioxide, tota l [Moles/volume] in Serum or Plasma [facility] Chloride [Moles/volu me] in Serum or Plasma [facility] Cocaine measurement, urine [facility] Creatinine [Moles/vo lume] in Serum or Plasma [facility] Ethanol [Mass/volume ] in Serum or Plasma [facility] Glucose [Mass/volume ] in Serum or Plasma [facility] Hematocrit [Volume Fraction] of Blood [facility] Hemoglobin [Mass/vol ume] in Blood [facility] Leukocytes [#/volume ] in Blood [facility] Mean corpuscular hemoglobin concentration determination [facility] Mean corpuscular hemoglobin determination [facility] Measurement of 3,4-methylenedioxymethamp hetamine in urine [facility] Measurement of renal function [facility] Methadone measuremen t, urine [facility] Neutrophil count [facility] Neutrophil percent differential count [facility] OUTSIDE PROCEDURE SCAN OUTSIDE P ROCEDURE SCAN Procedures Ordered: 06/14/2023 [facility] Comment on above: Ordered: 06/14/2023 Patient Education [facility] Work Phone: Patient referral [facility] Work Phone: pH of Urine [facility] Phencyclidine [Prese nce] in Urine [facility] Platelets [#/volume] in Blood [facility] Potassium [Moles/vol ume] in Serum or Plasma [facility] End: 10-18-2022 Radex spine lumbosacral 2/3 views XR LUMBAR GENERAL 3V AP/LAT/L5-S1 Radiology STAT Acute midline low back pain without sciatica 1 Occurrences starting 09/18/2021 until 10/18/2022 [facility] Work Phone: Comment on above: 1 Occurrences starti ng 09/18/2021 until 10/18/2022 Red blood cell count [facility] Red cell distributio n width determination [facility] SARS-CoV-2 (COVID-19 ) Ag [Presence] in Respiratory specimen by Rapid immunoassay [facility] Sodium [Moles/volume ] in Serum or Plasma [facility] Urea nitrogen [Mass/volume] in Serum or Plasma [facility] Urine barbiturate measurement [facility] Urine cannabinoid measurement [facility] Urine opiate measurement [facility] End: 06-14-2023 XR Foot - bilateral 3 Views [facility] Work Phone: Comment on above: Once for 1 Occurrenc es starting 06/14/2023 until 06/14/2023 End: 08-03-2023 XR Lumbar spine Views W flexion and W extension [facility] Comment on above: Once for 1 Occurrenc es starting 08/03/2023 until 08/03/2023 [facility] Immunizations Immunization Date Immunization Notes Care Provider Bernardo ferguson 09-24-2022 tetanus toxoid, redu eileen diphtheria toxoid, and acellular pertussis vaccine, adsorbed [facility] 01-15-2019 influenza virus vaccine, unspecified formulation Daxa Norman APRN.CNP Work Phone: [facility] Payers Date Payer Category Payer Self-pay [id number] 2021 Medicaid [employer] [id number] 2021-Present [phone] [address] [place] [address] Medicaid [id number] 2021 Medicaid [id number] 2021 Unknown [id number] 1970 Unknown [id number] Unknown [id number] Unknown VA AUTH REQUIRED SEE NOTE* * [id number] Unknown [id number] Unknown [id number] Unknown [id number] Unknown [id number] Unknown [id number] Unknown [id number] Unknown [id number] Unknown [id number] Unknown [id number] Unknown [id number] Social History Date Type Detail Facility Start: 05-17-2021 End: 10-16-2023 Tobacco smoking status NHIS Never smoked tobacco [facility] Start: 05-17-2021 End: 10-16-2023 Tobacco use and exposure Smokeless tobacco non-user [facility] Start: 07-07-2021 End: 08-01-2021 History SDOH Alcohol Frequency 1 [facility] Start: 07-07-2021 History SDOH Alcohol Std Drinks 98 [facility] Start: 07-07-2021 History SDOH Social Connections Uatsdin 3 [facility] Start: 07-07-2021 History SDOH Social Connections Membership 2 [facility] Start: 07-07-2021 History SDOH Stress 5 [facility] Start: 1970 Sex Assigned At Male [facility] Start: 06-26-2021 End: 09-18-2021 Exposure to SARS-CoV-2 (event) Not sure [facility] Start: 08-02-2021 End: 09-18-2021 Alcohol intake Lifetime non-drinker (finding) [facility] Start: 11-23-2021 End: 04-19-2023 Tobacco smoking status NHIS Unknown if ever smoked [facility] Start: 1970 Sex Assigned At Not on file [facility] Start: 09-08-2021 End: 06-01-2023 Gender identity Not on file [facility] Start: 09-08-2021 End: 06-01-2023 History of Social function [facility] How often to you hav e a drink containing alcohol? Never [facility] How many standard dr inks containing alcohol do you have on a typical day? Patient does not drink [facility] Do you belong to any clubs or organizations such as buddhist groups, unions, fraternal or athletic groups, or school groups? No [facility] Do you feel stress - tense, restless, nervous, or anxious, or unable to sleep at night because your mind is troubled all the time - these days [OSQ] Very much [facility] Start: 06-21-2021 Gender identity Identifies as male gender (finding) [facility] Start: 07-10-2021 Sexual orientation Heterosexual (finding) [facility] Start: 08-27-2024 Tobacco smoking status NHIS Current some day smoker [facility] Medical Equipment Procedure Code Equipment Code Equipment Origin al Text Equipment Identifier Dates Repair, hernia, umbilical, using mesh RELOAD, [id number] SELECTABLE FDA Start: 08-27-2024 Repair, hernia, umbilical, using mesh RELOAD, SR75 SELECTABLE FDA Start: 08-27-2024 Repair, hernia, umbilical, using mesh RELOAD, SR75 SELECTABLE FDA Start: 08-27-2024 Repair, hernia, umbilical, using mesh [id number] FDA Start: 08-27-2024 Repair, hernia, umbilical, using mesh RELOAD, SR75 SELECTABLE FDA Start: 08-27-2024 Repair, hernia, umbilical, using mesh RELOAD, SR75 SELECTABLE FDA Start: 08-27-2024 Repair, hernia, umbilical, using mesh RELOAD, SR75 SELECTABLE FDA Start: 08-27-2024 Repair, hernia, umbilical, using mesh STAPLER,TX60B FDA Start: 08-27-2024 Functional Status Date Assessment Result Facility 08-29-2024 Functional status Ambulates;Up ad nita [facility] Work Phone: 04-20-2023 Functional status Ambulates [facility] Work Phone: Mental Status Date Assessment Result Facility 08-29-2024 Cognitive function Voice/Name [facility] Work Phone: 04-20-2023 Cognitive function Voice/Name [facility] Work Phone: 10-06-2022 Cognitive function Voice/Name [facility] Work Phone: 10-02-2022 Cognitive function Level Of Cons ciousness Follows Commands;Drowsy [facility] Work Phone: 03-06-2022 Cognitive function Level Of Cons ciousness Awake;Alert;Appropriate;Follow s Commands [facility] Work Phone: Clinical Notes 05-17-2021 to 08-29-2024 Note Date & Type Note Facility 08-29-2024 Consult note [facility] 08-29-2024 Consult note [facility] 08-29-2024 Consult note [facility] 08-29-2024 Discharge summary Note Date/Time August 29, 2024 9:37am [facility] Medical Records Department [address] [place] [address] Discharge Summary 08/29/24 0934 MR#: [id number] Acct: [id number] Name: MIKE HATCH Rep #:[id number] : 1970 54 From: Demetrius irving MD PCP: [facility] atus:ADM IN [id number] Providers Date of Admission: 08/27/24 Primary Care Physician: [facility] Reason For Visit: INCARCERATED HERNIA Diagnosis Discharge Diagnosis (1) Incarcerated umbilical hernia: Status: Acute Code(s): K42.0 - Umbilical hernia with obstruction, without gangrene Plan: Patient is postoperative day 2 from a small bowel resection for an incarcerated umbilical hernia. I will advance him to clear liquids today and advance as tolerated. Demetrius Hernández MD Pager: [facility] [address] [place] [address], [address] [place] [address] Office: Medications at Discharge Home Medications brexpiprazole 2 mg tablet (Rexulti) 2 mg PO DAILY 11/23/21 fluoxetine 40 mg capsule 80 cap PO DAILY 11/23/21 methylphenidate HCl 20 mg tablet (Ritalin) 20 tab PO TID 11/23/21 cholecalciferol (vitamin D3) 50 mcg (2,000 unit) capsule (Vitamin D3) 50 mcg PO DAILY 10/02/22 omega 0-ijv-dme-fish oil 1,000 mg (120 mg-180 mg) capsule 1 cap PO BID 10/02/22 zolpidem 10 mg tablet 10 mg PO QPM 10/20/23 prazosin 1 mg capsule 3 mg PO QHS 01/01/24 tizanidine 4 mg tablet 4 mg PO QHS 01/01/24 oxycodone 5 mg tablet 5 - 10 mg (1 - 2 x 5 mg) PO Q4H PRN PRN Pain Score 4-10 5 days #20 tabs 08/29/24 Hospital Course Summary of Care Provided Hospital Course: Patient was admitted and taken for immediate surgery for an incarcerated umbilical hernia containing small bowel. He was found to have ischemia of the small bowel and it was resected. He had anastomosis. The next day he was kept NPO. The following day he was started on clear liquids and advance as toleratedand once tolerating a diet he will be discharged home. Weight / BMI Weight Weight: 235 lb 14.314 oz Body Mass Index (BMI) 33.8 ABG / Lab / Microbiology Data 08/29/24 05:57 08/29/24 05:57 Laboratory: Laboratory Results - last 24 hr 08/29/24 05:57: WBC 11.8 H, RBC 3.99 L, Hgb 11.8 L, Hct 35.5 L, MCV 89.0, MCH 29.6, MCHC 33.2, RDW Std Deviation 44.5 H, RDW Coeff of Danish 13.6, Plt Count 274,MPV 9.7, Immature Gran % (Auto) 0.300, Neut % (Auto) 67.0, Lymph % (Auto) 24.6, [place] % (Auto) 6.6, Eos % (Auto) 0.9, Baso % (Auto) 0.6, Absolute Neuts (auto) 7.9 H, Absolute Lymphs (auto) 2.91, Nucleated RBC % 0, Sodium 140, Potassium 3.4, Chloride 107, Carbon Dioxide 24.3, Anion Gap 9, BUN 9, Creatinine 0.71, Estim Creat Clear Calc 142.30, Est GFR (MDRD) Non-Af 108, BUN/Creatinine Ratio 13.1, Glucose 89, Calcium 8.5 D/C Instructions Discharge Diet: Light diet - advance as tolerated Discharge Activity: May Not Drive (for 2-3 days and while on narcotics) and May Shower Lifting Restrictions: 15 lbs for 6 weeks Call your doctor if your incision/area has: Continuous Slow Oozing, Sudden Increased Bleeding, Increased Pain/ Swelling, Increased Redness, Foul Smelling Discharge and Swelling at the incision site Call your doctor if you observe: Fever of 101 or Higher Remove Dressing in: 2 days (Remove steri strips in 1 week) Cleanse incision/area with: Soap & Water DC O2, CPAP, BIPAP Needs Home O2 Discharge instructions: No Please Follow Up With: Demetrius Hernández MD When: Please call to schedule 1 week follow up appointment. [phone] Meaningful Use Info Meaningful Use Meaningful Use Diagnoses (Choose all that apply): None applicable Ischemic Stroke Statin Dosing Therapy Reference: STATIN DOSE THERAPY REFERENCE: * Patients > 75 years receive moderate or high dose statin therapy. * Patients 75 years or YOUNGER should receive HIGH intensity statin dose unless contraindicated. You will be required to document reason for non-treatment if statin daily dose does not meet guidelines. HIGH DOSE STATIN THERAPY DAILY Atorvastatin > than or = to 40 mg Rosuvastatin > than or = to 20 mg Amlodipine + Atorvastatin > than or = to 2.5/40 mg Ezetimibe + Simvastatin 10/80 mg Simvastatin 80mg Discharge Plan Admission Admit Date/Time: 08/27/24 16:18 Attending Provider: Demetrius Hernández [facility] Orders/Prescriptions Prescriptions: New oxycodone 5 mg Tablet 5 - 10 mg PO Q4H PRN PRN (Reason: Pain Score 4-10) 5 Days Qty: 20 0RF Continued tizanidine 4 mg tablet 4 mg PO QHS fluoxetine 40 mg capsule 80 cap PO DAILY Patient Comments: TAKE 2 CAPSULES BY MOUTH ONCE DAILY methylphenidate HCl [Ritalin] 20 mg tablet 20 tab PO TID Patient Comments: TAKE 1 TABLET THREE TIMES DAILY Rexulti 2 mg tablet 2 mg PO DAILY Patient Comments: take one tablet by mouth every morning prazosin 1 mg capsule 3 mg PO QHS Patient Comments: take 1 capsule daily at 2 pm and 2 capsules by mouth at bedtime cholecalciferol (vitamin D3) [Vitamin D3] 50 mcg (2,000 unit) Capsule 50 mcg PO DAILY omega 0-bfa-yki-fish oil 1,000 mg (120 mg-180 mg) capsule 1 cap PO BID Patient Comments: s/o unsure if pt. was getting [place] [facility] zolpidem 10 mg tablet 10 mg PO QPM [facility] - Disposition Disposition (needs filled in before D/C Order can be placed): Home, Self Care 08/29/24 0937 <Electronically signed by Demetrius Hernández MD> Cosigner Signature (if applicable): CC: Dr. Demetrius Hernández MD; [facility]~ Signed [facility] Work Phone: 1(686) 595-200805-09-2025 Progress note Author Demetrius Hernández [facility] Note Date/Time August 29, 2024 9:33am [facility] Medical Records Department [address] [place] [address] Progress Note - Surgery 08/29/24931 MR#: [id number] Acct: [id number] Name: MIKE HATCH Rep #:[id number] : 1970 54 From: Demetrius irving MD PCP: [facility] atus:ADM IN Location: MS3 [id number] Subjective Subjective Patient was very agitated this morning. He is concerned that he did not get hispsych meds yesterday. He would like to have a diet and go home today. Objective Data Objective Data Vital Signs: Vital Signs Temp Pulse Resp BP Pulse Ox O2 Del Method O2 Flow Rate 98.0 F 62 16 138/70 H 97 Room Air 2 08/29/24 08:44 08/29/24 08:44 08/29/24 08:44 08/29/24 08:44 08/29/24 08:44 08/29/24 08:44 08/27/24 17:15 Oxygen Flow Rate (L/min) 2 Oxygen Delivery Method Room Air Weight: 235 lb 14.314 oz Body Mass Index (BMI) 33.8 Intake & Output: Intake and Output for Last 24 Hours 08/27/24 08/28/24 08/29/24 23:59 23:59 23:59 Intake Total 3100 / 3100 1197 / 1197 1000 / 1000 Output Total 400 / 400 450 / 450 Balance 2700 / 2700 747 / 747 1000 / 1000 Lab / Micro Data 08/29/24 05:57 08/29/24 05:57 Labs: Laboratory Results - last 24 hr 08/29/24 05:57: WBC 11.8 H, RBC 3.99 L, Hgb 11.8 L, Hct 35.5 L, MCV 89.0, MCH 29.6, MCHC 33.2, RDW Std Deviation 44.5 H, RDW Coeff of Danish 13.6, Plt Count 274,MPV 9.7, Immature Gran % (Auto) 0.300, Neut % (Auto) 67.0, Lymph % (Auto) 24.6, [place] % (Auto) 6.6, Eos % (Auto) 0.9, Baso % (Auto) 0.6, Absolute Neuts (auto) 7.9 H, Absolute Lymphs (auto) 2.91, Nucleated RBC % 0, Sodium 140, Potassium 3.4, Chloride 107, Carbon Dioxide 24.3, Anion Gap 9, BUN 9, Creatinine 0.71, Estim Creat Clear Calc 142.30, Est GFR (MDRD) Non-Af 108, BUN/Creatinine Ratio 13.1, Glucose 89, Calcium 8.5 Physical Exam Const oriented x3 and no apparent distress Cardio regular rate and regular rhythm GI soft to palpation Palpation: tender Assessment & Plan Assessment/Plan (1) Incarcerated umbilical hernia: PLAN: Patient is postoperative day 2 from a small bowel resection for an incarcerated umbilical hernia. I will advance him to clear liquids today and advance as tolerated. Demetrius Hernández MD Pager: [facility] [address] [place] [address], [address] [place] [address] Office: 08/29/24 0933 <Electronically signed by Demetrius Hernández MD> Cosigner Signature (if applicable): CC: ~ Signed [facility] Work Phone: 1(283) 547-590905-09-2025 Discharge summary [facility] Medical Records Department [address] [place], [place] [id number] Discharge Summary 08/29/24 0934 MR#: [id number] Acct: [id number] Name: MIKE HATCH Rep #:[id number] : 1970 54 From: Demetrius irving MD PCP: [facility] atus:ADM IN [id number] Providers Date of Admission: 08/27/24 Primary Care Physician: [facility] Reason For Visit: INCARCERATED HERNIA Diagnosis Discharge Diagnosis (1) Incarcerated umbilical hernia: Status: Acute Code(s): K42.0 - Umbilical hernia with obstruction, without gangrene Plan: Patient is postoperative day 2 from a small bowel resection for an incarcerated umbilical hernia. Iwill advance him to clear liquids today and advance as tolerated. Demetrius Hernández MD Pager: [facility] [address] [place] [address], [address] [place] [phone] Office: Medications at Discharge Home Medications brexpiprazole 2 mg tablet (Rexulti) 2 mg PO DAILY 11/23/21 fluoxetine 40 mg capsule 80 cap PO DAILY 11/23/21 methylphenidate HCl 20 mg tablet (Ritalin) 20 tab PO TID 11/23/21 cholecalciferol (vitamin D3) 50 mcg (2,000 unit) capsule (Vitamin D3) 50 mcg PO DAILY 10/02/22 omega 4-tmb-boy-fish oil 1,000 mg (120 mg-180 mg) capsule 1 cap PO BID 10/02/22 zolpidem 10 mg tablet 10 mg PO QPM 10/20/23 prazosin 1 mg capsule 3 mg PO QHS 01/01/24 tizanidine 4 mg tablet 4 mg PO QHS 01/01/24 oxycodone 5 mg tablet 5 - 10 mg (1 - 2 x 5 mg) PO Q4H PRN PRN Pain Score 4-10 5 days #20 tabs 08/29/24 Hospital Course Summary of Care Provided Hospital Course: Patient was admitted and taken for immediate surgery for an incarcerated umbilical hernia containing small bowel. He was found to have ischemia of the small bowel and it was resected. He had anastomosis. The next day he was kept NPO. The following day he was started on clear liquids and advance as t oleratedand once tolerating a diet he will be discharged home. Weight / BMI Weight Weight: 235 lb 14.314 oz Body Mass Index (BMI) 33.8 ABG / Lab / Microbiology Data 08/29/24 05:57 08/29/24 05:57 Laboratory: Laboratory Results - last 24 hr 08/29/24 05:57: WBC 11.8 H, RBC 3.99 L, Hgb 11.8 L, Hct 35.5 L, MCV 89.0, MCH 29.6, MCHC 33.2, RDW Std Deviation 44.5 H, RDW Coeff of Danish 13.6, Plt Count 274,MPV 9.7, Immature Gran % (Auto) 0.300, Neut % (Auto) 67.0, Lymph % (Auto) 24.6, [place] % (Auto) 6.6, Eos % (Auto) 0.9, Baso % (Auto) 0.6, Absolute Neuts (auto) 7.9 H, Absolute Lymphs (auto) 2.91, Nucleated RBC % 0, Sodium 140, Potassium 3.4, Chloride 107, Carbon Dioxide 24.3, Anion Gap 9, BUN 9, Creatinine 0.71, Estim Creat Clear Calc 142.30, Est GFR (MDRD) Non-Af 108, BUN/Creatinine Ratio 13.1, Glucose 89, Calcium 8.5 D/C Instructions Discharge Diet: Light diet - advance as tolerated Discharge Activity: May Not Drive (for 2-3 days and while on narcotics) and May Shower Lifting Restrictions: 15 lbs for 6 weeks Call your doctor if your incision/area has: Continuous Slow Oozing, Sudden Increased Bleeding, Increased Pain/ Swelling, Increased Redness, Foul Smelling Discharge and Swelling at the incision site Call your doctor if you observe: Fever of 101 or Higher Remove Dressing in: 2 days (Remove steri strips in 1 week) Cleanse incision/area with: Soap & Water DC O2, CPAP, BIPAP Needs Home O2 Discharge instructions: No Please Follow Up With: Demetrius Hernández MD When: Please call to schedule 1 week follow up appointment. [phone] Meaningful Use Info Meaningful Use Meaningful Use Diagnoses (Choose all that apply): None applicable Ischemic Stroke Statin Dosing Therapy Reference: STATIN DOSE THERAPY REFERENCE: * Patients > 75 years receive moderate or high dose statin therapy. * Patients 75 years or YOUNGER should receive HIGH intensity statin dose unless contraindicated. You will be required to document reason for non-treatment if statin daily dose does not meet guidelines. HIGH DOSE STATIN THERAPY DAILY Atorvastatin > than or = to 40 mg Rosuvastatin > than or = to 20 mg Amlodipine + Atorvastatin > than or = to 2.5/40 mg Ezetimibe + Simvastatin 10/80 mg Simvastatin 80mg Discharge Plan Admission Admit Date/Time: 08/27/24 16:18 Attending Provider: Demetrius Hernández [facility] Orders/Prescriptions Prescriptions: New oxycodone 5 mg Tablet 5 - 10 mg PO Q4H PRN PRN (Reason: Pain Score 4-10) 5 Days Qty: 20 0RF Continued tizanidine 4 mg tablet 4 mg PO QHS fluoxetine 40 mg capsule 80 cap PO DAILY Patient Comments: TAKE 2 CAPSULES BY MOUTH ONCE DAILY methylphenidate HCl [Ritalin] 20 mg tablet 20 tab PO TID Patient Comments: TAKE 1 TABLET THREE TIMES DAILY Rexulti 2 mg tablet 2 mg PO DAILY Patient Comments: take one tablet by mouth every morning prazosin 1 mg capsule 3 mg PO QHS Patient Comments: take 1 capsule daily at 2 pm and 2 capsules by mouth at bedtime cholecalciferol (vitamin D3) [Vitamin D3] 50 mcg (2,000 unit) Capsule 50 mcg PO DAILY omega 6-cmz-rml-fish oil 1,000 mg (120 mg-180 mg) capsule 1 cap PO BID Patient Comments: s/o unsure if pt. [place] getting [place] [facility] zolpidem 10 mg tablet 10 mg PO QPM [facility] - Disposition Disposition (needs filled in before D/C Order can be placed): Home, Self Care 08/29/24936 Cosign Signature (if applicable): CC: Dr. Demetrius Hernández MD; [facility]~ Signed [facility]05-09-2025 [facility] Medical Records Department [address] [place] [address] Discharge Summary 08/29/24933 MR#: [id number] Acct: [id number] Name: MIKE HATCH Rep #: [id number] : 1970 54 From: Demetrius Hernández MD PCP: [facility] Status:ADM IN Location: [facility] [id number] Providers Date of Admission: 08/27/24 Primary Care Physician: [facility] Reason For Visit: INCARCERATED HERNIA Diagnosis Discharge Diagnosis (1) Incarcerated umbilical hernia: Status: Acute Code(s): K42.0 - Umbilical hernia with obstruction, without gangrene Plan: Patient is postoperative day 2 from a small bowel resection for an incarcerated umbilical hernia. I will advance him to clear liquids today and advance as tolerated. Demetrius Hernández MD Pager: [facility] [address] [place] [address], [address] [place] [address] Office: Medications at Discharge Home Medications brexpiprazole 2 mg tablet (Rexulti) 2 mg PO DAILY 11/23/21 fluoxetine 40 mg capsule 80 cap PO DAILY 11/23/21 methylphenidate HCl 20 mg tablet (Ritalin) 20 tab PO TID 11/23/21 cholecalciferol (vitamin D3) 50 mcg (2,000 unit) capsule (Vitamin D3) 50 mcg PO DAILY 10/02/22 omega 5-egk-fin-fish oil 1,000 mg (120 mg-180 mg) capsule 1 cap PO BID 10/02/22 zolpidem 10 mg tablet 10 mg PO QPM 10/20/23 prazosin 1 mg capsule 3 mg PO QHS 01/01/24 tizanidine 4 mg tablet 4 mg PO QHS 01/01/24 oxycodone 5 mg tablet 5 - 10 mg (1 - 2 x 5 mg) PO Q4H PRN PRN Pain Score 4-10 5 days #20 tabs 08/29/24 Hospital Course Summary of Care Provided Hospital Course: Patient was admitted and taken for immediate surgery for an incarcerated umbilical hernia containing small bowel. He was found to have ischemia of the small bowel and it was resected. He had anastomosis. The next day he was kept NPO. The following day he was started on clear liquids and advance as tolerated and once tolerating a diet he will be discharged home. Weight / BMI Weight Weight: 235 lb 14.314 oz Body Mass Index (BMI) 33.8 ABG / Lab / Microbiology Data 08/29/24 05:57 08/29/24 05:57 Laboratory: Laboratory Results - last 24 hr 08/29/24 05:57: WBC 11.8 H, RBC 3.99 L, Hgb 11.8 L, Hct 35.5 L, MCV 89.0, MCH 29.6, MCHC 33.2, RDW Std Deviation 44.5 H, RDW Coeff of Danish 13.6, Plt Count 274, MPV 9.7, Immature Gran % (Auto) 0.300, Neut % (Auto) 67.0, Lymph % (Auto) 24.6, [place] % (Auto) 6.6, Eos % (Auto) 0.9, Baso % (Auto) 0.6, A bsolute Neuts (auto) 7.9 H, Absolute Lymphs (auto) 2.91, Nucleated RBC % 0, Sodium 140, Potassium 3.4, Chloride 107, Carbon Dioxide 24.3, Anion Gap 9, BUN 9, Creatinine 0.71, Estim Creat Clear Calc 142.30, Est GFR (MDRD) Non-Af 108, BUN/Creatinine Ratio 13.1, Glucose 89, Calcium 8.5 D/C Instructions Discharge Diet: Light diet - advance as tolerated Discharge Activity: May Not Drive (for 2-3 days and while on narcotics) and May Shower Lifting Restrictions: 15 lbs for 6 weeks Call your doctor if your incision/area has: Continuous Slow Oozing, Sudden Increased Bleeding, Increased Pain/ Swelling, Increased Redness, Foul Smelling Discharge and Swelling at the incision site Call your doctor if you observe: Fever of 101 or Higher Remove Dressing in: 2 days (Remove steri strips in 1 week) Cleanse incision/area with: Soap Water DC O2, CPAP, BIPAP Needs Home O2 Discharge instructions: No Please Follow Up With: Demetrius Hernández MD When: Please call to schedule 1 week follow up appointment. [phone] Meaningful Use Info Meaningful Use Meaningful Use Diagnoses (Choose all that apply): None applicable Ischemic Stroke Statin Dosing Therapy Reference: STATIN DOSE THERAPY REFERENCE: * Patients > 75 years receive moderate or high dose statin therapy. * Patients 75 years or YOUNGER should receive HIGH intensity statin dose unless contraindicated. You will be required to document reason for non-treatment if statin daily dose does not meet guidelines. HIGH DOSE STATIN THERAPY DAILY Atorvastatin > than or = to 40 mg Rosuvastatin > than or = to 20 mg Amlodipine + Atorvastatin > than or = to 2.5/40 mg Ezetimibe + Simvastatin 10/80 mg Simvastatin 80mg Discharge Plan Admission Admit Date/Time: 08/27/24 16:18 Attending Provider: Demetrius Hernández [facility] Orders/Prescriptions Prescriptions: New oxycodone 5 mg Tablet 5 - 10 mg PO Q4H PRN PRN (Reason: Pain Score 4-10) 5 Days Qty: 20 0RF Continued tizanidine 4 mg tablet 4 mg PO QHS fluoxetine 40 mg capsule 80 cap PO DAILY Patient Comments: TAKE 2 CAPSULES BY MOUTH ONCE DAILY methylphenidate HCl [Ritalin] 20 mg tablet 20 tab PO TID Patient Comments: (more content not included)...[facility] 08-29-2024 Progress note [facility] Medical Records Department [address] [place] [address] Progress Note - Surgery 08/29/24 0932 MR#: [id number] Acct: [id number] Name: MIKE HATCH Rep #:[id number] : 1970 54 From: Demetrius irving MD PCP: [facility] atus:ADM IN Location: [facility]3 [id number] Subjective Subjective Patient was very agitated this morning. He is concerned that he did not get hispsych meds yesterday. He would like to have a diet and go home today. Objective Data Objective Data Vital Signs: Vital Signs Temp Pulse Resp BP Pulse Ox O2 Del Method O2 Flow Rate 98.0 F 62 16 138/70 H 97 Room Air 2 08/29/24 08:44 08/29/24 08:44 08/29/24 08:44 08/29/24 08:44 08/29/24 08:44 08/29/24 08:44 08/27/24 17:15 Oxygen Flow Rate (L/min) 2 Oxygen Delivery Method Room Air Weight: 235 lb 14.314 oz Body Mass Index (BMI) 33.8 Intake & Output: Intake and Output for Last 24 Hours 08/27/24 08/28/24 08/29/24 23:59 23:59 23:59 Intake Total 3100 / 3100 1197 / 1197 1000 / 1000 Output Total 400 / 400 450 / 450 Balance 2700 / 2700 747 / 747 1000 / 1000 Lab / Micro Data 08/29/24 05:57 08/29/24 05:57 Labs: Laboratory Results - last 24 hr 08/29/24 05:57: WBC 11.8 H, RBC 3.99 L, Hgb 11.8 L, Hct 35.5 L, MCV 89.0, MCH 29.6, MCHC 33.2, RDW Std Deviation 44.5 H, RDW Coeff of Danish 13.6, Plt Count 274,MPV 9.7, Immature Gran % (Auto) 0.300, Neut % (Auto) 67.0, Lymph % (Auto) 24.6, [place] % (Auto) 6.6, Eos % (Auto) 0.9, Baso % (Auto) 0.6, Absolute Neuts (auto) 7.9 H, Absolute Lymphs (auto) 2.91, Nucleated RBC % 0, Sodium 140, Potassium 3.4, Chloride 107, Carbon Dioxide 24.3, Anion Gap 9, BUN 9, Creatinine 0.71, Estim Creat Clear Calc 142.30, Est GFR (MDRD) Non-Af 108, BUN/Creatinine Ratio 13.1, Glucose 89, Calcium 8.5 Physical Exam Const oriented x3 and no apparent distress Cardio regular rate and regular rhythm GI soft to palpation Palpation: tender Assessment & Plan Assessment/Plan (1) Incarcerated umbilical hernia: PLAN: Patient is postoperative day 2 from a small bowel resection for an incarcerated umbilical hernia. I will advance him to clear liquids today and advance as tolerated. Demetrius Hernández MD Pager: [facility] [address] [place] [address], [address] [place] [address] Office: 08/29/24 0994 Cosigner Signature (if applicable): CC: ~ Signed [facility]05-08-2025 Progress note Author Demetrius Hernández [facility] Note Date/Time August 28, 2024 6:47am [facility] Medical Records Department [address] [place] [address] Progress Note - Surgery 08/28/24 0646 MR#: [id number] Acct: [id number] Name: MIKE HATCH Rep #:[id number] : 1970 54 From: Demetrius irving MD PCP: [facility] atus:ADM IN Location: [facility] [id number] Subjective Subjective Patient is comfortable. He is not passing any flatus yet. Denies any nausea orvomiting. Objective Data Objective Data Vital Signs: Vital Signs Temp Pulse Resp BP Pulse Ox O2 Del Method O2 Flow Rate 97.6 F L 64 15 135/75 H 95 Room Air 2 05/08/25 02:05 08/28/24 02:05 08/28/24 02:05 08/28/24 02:05 08/27/24 21:56 08/28/24 02:46 08/27/24 17:15 Oxygen Flow Rate (L/min) 2 Oxygen Delivery Method Room Air Weight: 235 lb 14.314 oz Body Mass Index (BMI) 33.8 Intake & Output: Intake and Output for Last 24 Hours 08/26/24 08/27/24 08/28/24 23:59 23:59 23:59 Intake Total 3100 / 3100 Output Total 400 / 400 300 / 300 Balance 2700 / 2700 -300 / -300 Lab / Micro Data 08/27/24 10:30 08/27/24 10:30 Labs: Laboratory Results - last 24 hr 08/27/24 10:30: WBC 22.0 H, RBC 5.19, Hgb 15.3, Hct 43.7, MCV 84.2, MCH 29.5, MCHC 35.0, RDW Std Deviation 41.2, RDW Coeff of Danish 13.4, Plt Count 421, MPV 9.8, Immature Gran % (Auto) 0.500, Neut % (Auto) 74.4 H, Lymph % (Auto) 18.7 L, [place] % (Auto) 5.3, Eos % (Auto) 0.4, Baso % (Auto) 0.7, Absolute Neuts (auto) 16.4 H, Absolute Lymphs (auto) 4.11, Nucleated RBC % 0, Sodium 139, Potassium 3.4, Chloride 100, Carbon Dioxide 20.9 L, Anion Gap 18 H, BUN 6, Creatinine 0.96, Estim Creat Clear Calc 105.24, Est GFR (MDRD) Non-Af 93, BUN/Creatinine Ratio 6.1 L, Glucose 99, Calcium 9.6, Total Bilirubin 0.45, AST 29, ALT 14, Alkaline Phosphatase 129, Total Protein 7.5, Albumin 4.4, Globulin 3.2, Albumin/Globulin Ratio 1.4, Lipase 23 08/27/24 11:45: Lactic Acid 3.9 H* 08/27/24 16:10: Lactic Acid 1.4 08/27/24 16:29: POC Glucose 130 H Radiography Diagnostic Testing: Radiology Impression Abdomen/Pelvis CT 08/27/24 11:27 IMPRESSION: 1. Small umbilical hernia containing fat and a short segment of minimally dilated small bowel. Given two transition points associated with the entry and exit from the hernia sac, early closed loop obstruction is possible. Mild upstream intraperitoneal small-bowel dilatation suggests associated early simple mechanical small-bowel obstruction. Recommend surgical consultation. 2. Trace subcutaneous inflammatory changes surrounding the hernia sac are nonspecific; correlate for the clinical diagnosis of bowel strangulation. 3. Mild bladder wall thickening versus underdistention. Correlate for cystitis. 4. Borderline mild splenomegaly. 5. Additional description as above. Reading Location: [facility] Physical Exam Const oriented x3 and no apparent distress Resp normal respiratory effort GI soft to palpation Palpation: tender Assessment & Plan Assessment/Plan (1) Incarcerated umbilical hernia: PLAN: Patient is postoperative day 1 from incarcerated umbilical hernia with bowel resection. He is still not passing any flatus. Continue n.p.o. with sipsand chips. Await bowel function. Labs pending. Demetrius Hernández MD Pager: [facility] [address] [place] [address], [address] [place] [address] Office: 08/28/24 0647 <Electronically signed by Demetrius Hernández MD> Cosigner Signature (if applicable): CC: ~ Signed [facility] Work Phone: 1(355) 405-728505-08-2025 Progress note [facility] Medical Records Department [address] [place] [address] Progress Note - Surgery 08/28/24 0646 MR#: [id number] Acct: [id number] Name: MIKE HATCH Rep #:[id number] : 1970 54 From: Demetrius irving MD PCP: [facility] atus:ADM IN Location: [place] [address] Subjective Subjective Patient is comfortable. He is not passing any flatus yet. Denies any nausea orvomiting. Objective Data Objective Data Vital Signs: Vital Signs Temp Pulse Resp BP Pulse Ox O2 Del Method O2 Flow Rate 97.6 F L 64 15 135/75 H 95 Room Air 2 08/28/24 02:05 08/28/24 02:05 08/28/24 02:05 08/28/24 02:05 08/27/24 21:56 08/28/24 02:46 08/27/24 17:15 Oxygen Flow Rate (L/min) 2 Oxygen Delivery Method Room Air Weight: 235 lb 14.314 oz Body Mass Index (BMI) 33.8 Intake & Output: Intake and Output for Last 24 Hours 08/26/24 08/27/24 08/28/24 23:59 23:59 23:59 Intake Total 3100 / 3100 Output Total 400 / 400 300 / 300 Balance 2700 / 2700 -300 / -300 Lab / Micro Data 08/27/24 10:30 08/27/24 10:30 Labs: Laboratory Results - last 24 hr 08/27/24 10:30: WBC 22.0 H, RBC 5.19, Hgb 15.3, Hct 43.7, MCV 84.2, MCH 29.5, MCHC 35.0, RDW Std Deviation 41.2, RDW Coeff of Danish 13.4, Plt Count 421, MPV 9.8, Immature Gran % (Auto) 0.500, Neut % (Auto) 74.4 H, Lymph % (Auto) 18.7 L, [place] % (Auto) 5.3, Eos % (Auto) 0.4, Baso % (Auto) 0.7, AbsoluteNeuts (auto) 16.4 H, Absolute Lymphs (auto) 4.11, Nucleated RBC % 0, Sodium 139, Potassium 3.4, Chloride 100, Carbon Dioxide 20.9 L, Anion Gap 18 H, BUN 6, Creatinine 0.96, Estim Creat Clear Calc 105.24, Est GFR (MDRD) Non-Af 93, BUN/Creatinine Ratio 6.1 L, Glucose 99, Calcium 9.6, Total Bilirubin 0.45, AST 29, ALT 14, Alkaline Phosphatase 129, Total Protein 7.5, Albumin 4.4, Globulin 3.2, Albumin /Globulin Ratio 1.4, Lipase 23 08/27/24 11:45: Lactic Acid 3.9 H* 08/27/24 16:10: Lactic Acid 1.4 08/27/24 16:29: POC Glucose 130 H Radiography Diagnostic Testing: Radiology Impression Abdomen/Pelvis CT 08/27/24 11:27 IMPRESSION: 1. Small umbilical hernia containing fat and a short segment of minimally dilated small bowel. Given two transition points associated with the entry and exit from the hernia sac, early closed loop obstruction is possible. Mild upstream intraperitoneal small-bowel dilatation suggests associated early simple mechanical small-bowel obstruction. Recommend surgical consultation. 2. Trace subcutaneous inflammatory changes surrounding the hernia sac are nonspecific; correlate for the clinical diagnosis of bowel strangulation. 3. Mild bladder wall thickening versus underdistention. Correlate for cystitis. 4. Borderline mild splenomegaly. 5. Additional description as above. Reading Location: [id number] Physical Exam Const oriented x3 and no apparent distress Resp normal respiratory effort GI soft to palpation Palpation: tender Assessment & Plan Assessment/Plan (1) Incarcerated umbilical hernia: PLAN: Patient is postoperative day 1 from incarcerated umbilical hernia with bowel resection. He isstill not passing any flatus. Continue n.p.o. with sipsand chips. Await bowel function. Labs pending. Demetrius Hernández MD Pager: [facility] [address] [place] [address], [address] [place] [address] Office: 08/28/24 5082 Cosigner Signature (if applicable): CC: ~ Signed [facility]05-07-2025 Consult note Author Ashutosh Wilkerson [facility] Note Date/Time August 29, 2024 3:35pm [facility] Medical Records Department [address] [place] [address] Anesthesia Postop Eval II 08/27/24 1700 MR#: [id number] Acct: [id number] Name: MIKE HATCH Rep #:[id number] : 1970 54 From: Ashutosh Wilkerson MD PCP: [facility] St atus:REG SDC Y Race: C Location: [facility]- Anesthesia Postop Eval I Sum Postop Eval Completion status Anesthesia document: Postop Eval 1 completed: Yes Anesthesia Postop Eval I Summary Anesthesia Postop Eval I Summary: Anesthesia Postop Eval I: Assessment Summary Airway patent Yes 08/27/24 16:39 RADIO ANTENNA INSTALLER.CSIR Spontaneous unlabored Yes 08/27/24 16:39 RADIO ANTENNA INSTALLER.CSIR respirations Mental status nausea No 08/27/24 16:39 RADIO ANTENNA INSTALLER.CSIR Vomiting No 08/27/24 16:39 RADIO ANTENNA INSTALLER.CSIR Anesthesia Postop Eval I: Fluid Summary Crystalloid volume administer 1,200 08/27/24 16:39 RADIO ANTENNA INSTALLER.CSIR (ml) Colloids volume administered ( ml) Blood Product volume administered (ml) Total IV fluid infused 1,200 08/27/24 16:39 RADIO ANTENNA INSTALLER.CSIR Anesthesia Postop Eval I: Summary Notes Anesthesia Complication No 08/27/24 16:39 RADIO ANTENNA INSTALLER.CSIR Anesthesia Complication Comment: Post-operative progress note Anesthesia: Postop Eval II Evaluation Mental status: Awake Pain Level: 0 nausea: No Vomiting: No Complications Anesthesia Complication: No 08/27/24 1700 <Electronically signed by Ashutosh Wilkerson MD> Date _ Ashutosh Wilkerson MD Cosigner Signature: Date CC: ~ Signed [facility] Work Phone: 1(239) 517-998705-07-2025 Consult note Author Alva Walker [facility] Note Date/Time August 29, 2024 3:35pm [facility] Medical Records Department [address] [place] [address] Anesthesia Postop Eval I 08/27/24 1639 MR#: [id number] Acct: [id number] Name: MIKE HATCH Rep #:[id number] : 1970 54 From: Alva Walker PCP: [facility] St atus:REG SDC Y Race: C Location: [facility] Anesthesia: Postop Eval I Current Vital Signs Temperature: 97 F Pulse Rate: 65 Blood Pressure: 128/57 Respiratory Rate: 20 Pulse Ox: 94 Assessment Airway patent: Yes Spontaneous unlabored respirations: Yes nausea: No Vomiting: No Anesthesia Complication: No Fluid Hydration Crystalloid volume administer (ml): 1,200 Total IV fluid infused: 1,200 Progress Note Anesthesia document: Postop Eval 1 completed: Yes 08/27/24 1639 <Electronically signed by Alva oliver> Date _ Alva Lewis Signature: Date CC: ~ Signed [facility] Work Phone: 1(542) 518-579505-07-2025 Evaluation note* Diagnosis Onset Date Resolution Status Admit Date Incarcerated umbilical hernia acute August 27, 2024 4:18pm [facility] Work Phone: 1(745) 988-530305-07-2025 Evaluation note* Diagnosis Onset Date Resolution Status Admit Date Incarcerated umbilical hernia resolv ed August 27, 2024 4:18pm [facility] Work Phone: 1(324) 768-651005-07-2025 Discharge summary Author Isis De Jesus [facility] Note Date/Time August 27, 2024 2:41pm [facility] Medical Records Department [address] [place] [address] Emergency Department Summary 08/27/24 MR#: [id number] Acct: [id number] Name: MIKE HATCH Rep #:[id number] : 1970 54 From: Isis Mccormick PCP: [facility] St [facility]us[place] [place]: [facility] A2 HPI HPI - GI History of Present Illness Chief Complaint: Abd Pain Informant: patient Narrative Narrative: Patient is a 54-year-old male with history of spinal stenosis and back pain, alcohol abuse, schizophrenia, autism and nicotine use presenting from home for abdominal pain, nausea and vomiting. Patient states about 11 PM last night he coughed and suddenly felt a bulge in his bellybutton area. He had pain there. He had pain throughout the night in that area but now intermittently radiates upinto his chest. He has had associated nausea and vomiting. He is concerned that his insides are black because his vomit has been dark. Does think he has passed gas today but is more unsure about that. Denies any known history of hernia. Has not been able to eat or drink anything today. Last ate yesterday evening. No other complaints or concerns at this time. Denies any abdominal surgical history. [facility] Medical History Nicotine vapor product user Anxiety and depression Cannabis abuse Autism Schizophrenia Tobacco use History of alcohol abuse Alcohol abuse Cataract (lens) fragments in eye following cataract surgery, bilateral Home Medications ?Medication ?Instructions ?Recorded ?Last Taken ?Type brexpiprazole 2 mg tablet (Rexulti) 2 mg PO DAILY 07/1208/26/24 History fluoxetine 40 mg capsule 80 cap PO DAILY 11/23/2110/15 History methylphenidate HCl 20 mg tablet 20 tab PO TID 2 08/26/24 History (Ritalin) cholecalciferol (vitamin D3) 50 50 mcg PO DAILY 08/26/24 History mcg (2,000 unit) capsule (Vitamin D3) omega 8-eqz-cjv-fish oil 1,000 mg 1 cap PO BID 3 08/26/24 History (120 mg-180 mg) capsule zolpidem 10 mg tablet 10 mg PO QPM 10/20/23 History prazosin 1 mg capsule 3 mg PO QHS 01/01/24 5 History tizanidine 4 mg tablet 4 mg PO QHS 01/01/24 5 History Allergy/AdvReac Type Severity Reaction Status Date / Time No Known Allergies Allergy Verified 08/27/24 10:21 Family History Mother COPD (chronic obstructive pulmonary disease) Hypertension Diabetes Father Hypertension Alcohol abuse Surgical History History of shoulder surgery History of tonsillectomy and adenoidectomy H/O cataract removal with insertion of prosthetic lens Social History household members: friend(s) Smoking Status: Current some day smoker tobacco type: cigarettes and e- cigarettes Electronic Cigarette Use: with nicotine how long ago did patient quit smoking: Cigarette->vaping several yrs, uses heavy. alcohol intake: current alcohol intake frequency: 3 or more drinks per day details: Reports binging history. substance use type: marijuana ROS ROS ED Constitutional Constitutional ED: Reports sweats; Denies fever(s) Cardiovascular Cardiovascular: Denies chest pain Respiratory/Chest Respiratory/Chest: Denies cough Gastrointestinal Gastrointestinal: Reports abdominal pain, nausea and vomiting Musculoskeletal Musculoskeletal: Denies back pain Integumentary Denies rash Neurologic Neurologic: Denies weakness Psychiatric Psychiatric: Reports anxiety Hematologic/Lymphatic Hematologic/Lymphatic: Denies easy bleeding or easy bruising EXAM Physical Exam Const Vital Signs: 08/27/24 10:21 08/27/24 11:20 08/27/24 12:00 Temperature 98.0 F Temperature Source Oral Pulse Rate 74 65 Respiratory Rate 24 H 18 Blood Pressure 138/75 H 135/73 H 141/69 H Blood Pressure Mean 96 93 93 Pulse Ox 99 94 Oxygen Delivery Method Room Air Room Air 08/27/24 13:00 08/27/24 13:25 08/27/24 14:12 Temperature 98 F 98 F Temperature Source Pulse Rate 65 62 62 Respiratory Rate 16 16 Blood Pressure 139/77 H 139/77 H 139/77 H Blood Pressure Mean 97 97 Pulse Ox 94 94 94 Oxygen Delivery Method Room Air Room Air Positive well nourished, well developed and unkempt Constitutional Narrative: Uncomfortable. General Appearance ED: unkempt and well developed HEENT Reports dry mucous membranes Mouth ED: Yes dry mucous membranes Mouth: dry mucous membranes Eyes PERRL Resp normal respiratory effort and clear to auscultation bilaterally Cardio regular rate and regular rhythm GI GI Narrative: Hypoactive bowel sounds present. There is an abdominal hernia with some mild overlying redness present. It is tender to palpation and does not reduce with direct constant pressure. Palpation: Negative for guarding or rigid Extremity full ROM Neuro Sensorium / Orientation: alert, oriented to person, oriented to place and oriented to time Motor Exam: Negative for general weakness Psych Appearance: unkempt Mood & Affect: anxious and tearful Skin Skin Narrative: Mild redness over the umbilicus MDM MDM MDM Narrative Medical decision making narrative: Patient evaluated for umbilical pain and associated nausea and vomiting. Patient appears quite uncomfortable upon initial evaluation. Appears to have incarcerated umbilical hernia. Ice pack is applied and bedside reduction attempted but unsuccessful. Patient is given pain medication including morphineas well as Zofran and IV fluids. Workup including CBC, BMP, liver panel, lipaseand lactate as well as CT abdomen pelvis is obtained. Patient does have a significant leukocytosis of 20 but otherwise is a normal CBC. Lipase and CMP normal. Lactate is elevated which is concerning for ischemia in the setting of this acute hernia. CT of the abdomen and pelvis shows a small local hernia containing fat and a short segment of minimally dilated small bowel. There are 2 transition points associated with entry and exit of the hernia sac and early closed-loop obstruction is possible. There is also signs of an early mechanical small bowelobstruction. This is consistent with patient's acute presentation. General surgery, Dr. Hernández, is paged. Evaluates the patient and will take him to the OR. Will order perioperative antibiotics. Patient is agreeable. Onrepeat evaluation he is much improved from a pain standpoint point. Lab Data Attestation: I reviewed the patient's lab results. Labs: Laboratory Results - last 24 hr 08/27/24 08/27/24 10:30 11:45 WBC 22.0 H RBC 5.19 Hgb 15.3 Hct 43.7 MCV 84.2 MCH 29.5 MCHC 35.0 RDW Std Deviation 41.2 RDW Coeff of Danish 13.4 Plt Count 421 MPV 9.8 Immature Gran % (Auto) 0.500 Neut % (Auto) 74.4 H Lymph % (Auto) 18.7 L Iosco % (Auto) 5.3 Eos % (Auto) 0.4 Baso % (Auto) 0.7 Absolute Neuts (auto) 16.4 H Absolute Lymphs (auto) 4.11 Nucleated RBC % 0 Sodium 139 Potassium 3.4 Chloride 100 Carbon Dioxide 20.9 L Anion Gap 18 H BUN 6 Creatinine 0.96 Estim Creat Clear Calc 105.24 Est GFR (MDRD) Non-Af 93 BUN/Creatinine Ratio 6.1 L Glucose 99 Lactic Acid 3.9 H* Calcium 9.6 Total Bilirubin 0.45 AST 29 ALT 14 Alkaline Phosphatase 129 Total Protein 7.5 Albumin 4.4 Globulin 3.2 Albumin/Globulin Ratio 1.4 Lipase 23 Radiography Diagnostic Testing: Clinical Impression(s) from Imaging Studies Abdomen/Pelvis CT 08/27/24 11:27 IMPRESSION: 1. Small umbilical hernia containing fat and a short segment of minimally dilated small bowel. Given two transition points associated with the entry and exit from the hernia sac, early closed loop obstruction is possible. Mild upstream intraperitoneal small-bowel dilatation suggests associated early simple mechanical small-bowel obstruction. Recommend surgical consultation. 2. Trace subcutaneous inflammatory changes surrounding the hernia sac are nonspecific; correlate for the clinical diagnosis of bowel strangulation. 3. Mild bladder wall thickening versus underdistention. Correlate for cystitis. 4. Borderline mild splenomegaly. 5. Additional description as above. Reading Location: [id number] Management Discussion w/another healthcare provider: Network Consultant Discharge Plan Dx/Rx/DC Orders Clinical Impression: Incarcerated umbilical hernia, Leukocytosis, Elevated lactic acid level Disposition Disposition: Acute Care Hospital [facility] Discharge Date/Time: 08/27/24 13:36 What to do if you have Problems For any increased pain, shortness of breath, bleeding, nausea or vomiting, chestpain, or any unexpected problems, contact your Primary Care Provider. Call [facility] ([phone]) or report to the closest Emergency Room. Call 911 if necessary. 08/27/24 1441 <Electronically signed by Isis De Jesus DO> Cosigner Signature (if applicable): CC: [facility] ~ Signed [facility] Work Phone: 1(308) 917-228905-07-2025 Procedure note [facility] Medical Records Department [address] [place] [address] Operative Report 08/27/24 1611 MR#: [id number] Acct: [id number] Name: TERRANCEMIKE LESLIE Rep #:[id number] : 1970 54 From: Demetrius irving MD [facility] St atus[facility] Location: [facility] A-2 Operative Report (Standard) Operative Information Date of Procedure: 08/27/24 Pre-Operative Diagnosis: Incarcerated umbilical hernia Post-Operative Diagnosis: Incarcerated umbilical hernia with small bowel necrosis Surgery/Procedure Performed: Umbilical hernia repair with small bowel resection mattress filler: Yes Screen Room Operator: Camilo Mustafa Tasks completed by orthodontist assistant: Opening and Closing Type of Anesthesia: General/Regional RN Documented Start/Stop Times: Operation Date: 08/27/24 15:00 Case Time Into Pre-Op 08/27/24 13:39 Out of Pre-Op 08/27/24 15:13 Anesthesia Start 08/27/24 15:15 Into Room 08/27/24 15:15 Procedure Start 08/27/24 15:31 Procedure Start Time: 15:31 Procedure Stop Time: 16:20 Select all DRAINS/GRAFTS/IMPLANTS that apply: None Estimated Blood Loss: 10 Specimen collected: Yes Description of specimen(s) removed: Small bowel segment and hernia sac Description of surgery: Patient was brought back to the operating room and general anesthesia was induced. The abdomen was prepped and draped in usual sterile fashion. A curvilinear incision was marked adjacent to the umbilicus and then incised. Thehernia sac was readily encountered. It was removed from the umbilical stalk. It was circumferentially dissected using blunt dissection. Next the hernia sac was opened. The bowel that was within it appeared dusky. The hernia sac was opened completely and then the fascia was opened superiorly and inferiorly to allow for the bowel to be delivered through the incision. It wasinspected and the bowel that was stuck in the hernia appeared dusky and did not have any peristalsis. We decided to resect this segment. Using a BRANDON stapler the small bowel was divided proximally anddistally to the ischemic segment. LigaSure impact was used to take down the mesentery. The corner was taken off of each staple line and a BRANDON stapler was used to anastomose the small bowel to the smal l bowel in a [id number] functional end to end fashion. The staple line wasinspected and the enterostomy was closed with a TX 60 stapler. A crotch suture was placed with 3-0 silk. Several silk sutures were placed on the staple line to maintain hemostasis. Next once there was good hemostasis the bowel was returned to the abdomen. The hernia sac was taken off of the umbilical stalk and sent for pathology. Next the fascia was closed using interrupted [id number] 0 PDS sutures. The subcutaneous tissue was irrigated and suctioned dry and closed with interrupted 3-0 Vicryl sutures and interrupted 4- 0Monocryl sutures. Steri-Strips and bandages were applied. Local anesthesia wasinjected. Patient was taken to PACU in stable condition and tolerated the procedure well. Surgical Findings: Incarcerated umbilical hernia with strangulation Complications Complications: No Admit VTE Documentation VTE Mechan Device Prophylaxis: SCD's 08/27/24 1617 Cosigner Signature (if applicable): CC: Dr. Demetrius Hernández MD; [facility]~ Signed [facility]05-07-2025 Consult note Author Ashutosh Herreraawaja [facility] Note Date/Time August 27, 2024 2:12pm [facility] Medical Records Department [address] [place] [address] Pre-Anesthesia Evaluation 08/27/24 1406 MR#: [id number] Acct: [id number] Name: MIKE HATCH Rep #:[id number] : 1970 54 From: Ashutosh Wilkerson MD PCP: [facility] St atus:REG [facility] Y Race: C Location: [place] [address] ASA Classification* ASA Classification ASA Classification: 2 (Chronic THC user, tobacco use, schizophrenia. We will RSIthis patient. ) and E Assessment & Plan Anesthesia* Anesthesia Assessment Anesthesia Assessment: Discussed sedation and/or anesthesia options, risks, benefits, and alternatives with patient/parents/legal guardian/POA. Questions invited. The patient/parents/legal guardian/POA seems to understand and agrees to proceedwith anesthesia plan. Reviewed the physical assessment, medical history, allergy history and patient home medications list prior to surgery/procedure/anesthetic and documented any changes. Performed airway and anesthesia risk assessments. Anesthesia Type Anesthesia Type: General History Source History Obtained from:: Patient and Chart Anesthesia Focused Assessment* Temperature: 98 F Pulse Rate: 62 Blood Pressure: 139/77 Respiratory Rate: 16 Pulse Ox: 94 Oxygen Delivery Method: Room Air Airway Assessment Mouth opens: >3 cm Mallampati Score: III Teeth Condition: Intact Neck Range of motion (ROM): Full ROM Focused Labs Anesthesia Preop lab: CBC WBC 22.0 K/mm3 (4.4-11.0) H 08/27/24 10: 5 RBC 5.19 M/mm3 (4.6-6.2) 08/27/24 10:08/27/24 Hgb 15.3 g/dL (13.0-16.5) 08/27/24 10:08/27/24 Hct 43.7 % (40-54) 08/27/24 10:08/27/24 Plt Count 421 K/mm3 (150-450) 08/27/24 10:30 08/27/24 CHEMISTRY Potassium 3.4 mmol/L (3.3-5.1) 08/27/24 10:08/27/24 Sodium 139 mmol/L (133-145) 08/27/24 10:30 08/27/24 Magnesium 2.0 mg/dL (1.6-2.6) 11/06/23 15:06 11/06/23 Phosphorus 3.9 mg/dL (2.5-4.9) 04/19/23 15:02 04/19/23 BUN 6 mg/dL (4-19) 08/27/24 10:08/27/24 Creatinine 0.96 mg/dL (0.70-1.20) 08/27/24 10:08/27/24 Glucose 99 mg/dL (70-99) 08/27/24 10:08/27/24 POC Glucose 152 mg/dL (74-106) H 04/19/23 15:01 04/19/23 TSH 0.94 uIU/mL (0.358-3.74) 11/06/23 15: COAG Pre-Assessment Diagnosis/Proposed Procedure Planned Operative Procedure(s): Incarcerated hernia repair; see surgical notes Anesthesia History 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 When Was Last Pacemaker Check QUESTION #4 FULL TEXT: You/Your Family Experience fever (hyperthermia) with Anesthesia Last Oral Intake Last Oral intake: Last Oral Intake NPO since Meds taken in AM with sips of water? Meds patient instructed to take am of surgery PONV PONV - chemical laboratory tester: PONV - chemical laboratory tester Female HX of Motion Sickness HX of N/V After Surgery Non-Smoker Duration of Surgery greater than 60 minutes Number of Risk Factors PONV Score Height & Weight Height & Weight: Anesthesia: Height & Weight Height 5 ft 10 in 08/27/24 10:21 Weight: 107 kg 08/27/24 10:21 Body Mass Index (BMI) 33.8 08/27/24 10:21 Respiratory Assessment Respiratory Assessment - chemical laboratory tester: Respiratory Tract Infection Hx - chemical laboratory tester Hx Respiratory Tract Infection STOP Sleep Apnea STOP Sleep Apnea - chemical laboratory tester: STOP Sleep Apnea - chemical laboratory tester Hx Hypertension No 11/14/23 14:49 Hx Sleep Apnea No 11/14/23 14:49 CPAP BIPAP Do you snore loudly (louder than talking or can be heard Do you often feel tired/ fatigued/ sleepy during daytime? Has anyone observed you stop breathing during sleep? STOP Results QUESTION #5 FULL TEXT : Do you snore loudly (louder than talking or can be heard through closed doors)? 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 Specify any problems Hx of Preganancy in last 3 Months Nurse Filling Out Transfusion & Questions: Date: Time: Patient unable to answer at this time (ie. 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 Hx Now Gestational Age (in weeks): EDC: Hx Hx Para Hx Section SAB Active Medications Active Medications: Current Medications Generic Name Dose Route Start Last Admin Trade Name Dami PRN Reason Stop Dose Admin Lactated Ringer's 1,000 mls @ 15 mls/hr 08/27/24 14:00 08/27/24 13:50 IV 15 mls/hr .Q48H CAROLA Administration PFSH Medical History Nicotine vapor product user Anxiety and depression Cannabis abuse Autism Schizophrenia Tobacco use History of alcohol abuse Alcohol abuse Cataract (lens) fragments in eye following cataract surgery, bilateral Home Medications ?Medication ?Instructions ?Recorded ?Last Taken ?Type brexpiprazole 2 mg tablet (Rexulti) 2 mg PO DAILY 07/1208/26/24 History fluoxetine 40 mg capsule 80 cap PO DAILY 11/23/2110/15 History methylphenidate HCl 20 mg tablet 20 tab PO TID 2 08/26/24 History (Ritalin) cholecalciferol (vitamin D3) 50 50 mcg PO DAILY 08/26/24 History mcg (2,000 unit) capsule (Vitamin D3) omega 5-gzg-vfm-fish oil 1,000 mg 1 cap PO BID 3 08/26/24 History (120 mg-180 mg) capsule zolpidem 10 mg tablet 10 mg PO QPM 10/20/23 History prazosin 1 mg capsule 3 mg PO QHS 01/01/24 5 History tizanidine 4 mg tablet 4 mg PO QHS 01/01/24 5 History Allergy/AdvReac Type Severity Reaction Status Date / Time No Known Allergies Allergy Verified 08/27/24 10:21 Family History Mother COPD (chronic obstructive pulmonary disease) Hypertension Diabetes Father Hypertension Alcohol abuse Surgical History History of shoulder surgery History of tonsillectomy and adenoidectomy H/O cataract removal with insertion of prosthetic lens Social History household members: friend(s) Smoking Status: Current some day smoker tobacco type: cigarettes and e- cigarettes Electronic Cigarette Use: with nicotine how long ago did patient quit smoking: Cigarette->vaping several yrs, uses heavy. alcohol intake: current alcohol intake frequency: 3 or more drinks per day details: Reports binging history. substance use type: marijuana Review of Systems (Anesthesia) ROS Narrative System reviewed and no additional complaints, except as documented. Physical Exam Const alert, oriented x3 and average body habitus Resp normal respiratory effort, normal air movement and clear to auscultation bilaterally Cardio regular rate, regular rhythm, no murmurs and diaphoretic 08/27/24 1412 <Electronically signed by Ashutosh Wilkerson MD> Date _ Ashutosh Wilkerson MD Cosigner Signature: Date CC: ~ Signed [facility] Work Phone: 1(557) 693-727205-07-2025 History and physical note Author Demetrius Hernández [facility] Note Date/Time August 27, 2024 1:02pm [facility] Medical Records Department [address] [place] [id number] H&P Exam - Surgical 08/27/24 1259 MR#: [id number] Acct: [id number] Name: MIKE HATCH Rep #:[id number] : 1970 54 From: Demetrius irving MD PCP: [facility] St atus:REG ER Location: ED HPI - General HPI Narrative MIKE HATCH, is a 54 M who presents with painful umbilical hernia. The patientreports that he has had an umbilical hernia for years but something more popped out yesterday during a coughing fit and has been very painful ever since. Patient reports nausea as well as vomiting. He denies fevers or chills. [facility] Medical History Nicotine vapor product user Anxiety and depression Cannabis abuse Autism Schizophrenia Tobacco use History of alcohol abuse Alcohol abuse Cataract (lens) fragments in eye following cataract surgery, bilateral Home Medications ?Medication ?Instructions ?Recorded ?Last Taken ?Type brexpiprazole 2 mg tablet (Rexulti) 2 mg PO DAILY 07/12 Unknown History fluoxetine 40 mg capsule 80 cap PO DAILY 11/23/21 Unk nown History methylphenidate HCl 20 mg tablet 20 tab PO TID 2 Unknown History (Ritalin) cholecalciferol (vitamin D3) 50 50 mcg PO DAILY Unknown History mcg (2,000 unit) capsule (Vitamin D3) omega 7-egm-wic-fish oil 1,000 mg 1 cap PO BID 3 Unknown History (120 mg-180 mg) capsule trazodone 100 mg tablet 100 mg PO QHS PRN Sleep 09/21 06/15 Unknown History zolpidem 10 mg tablet 10 mg PO QPM 10/20/23 Unknow n History prazosin 1 mg capsule 3 mg PO QHS 01/01/24 Unknown History tizanidine 4 mg tablet 4 mg PO QHS 01/01/24 Unknown History Allergy/AdvReac Type Severity Reaction Status Date / Time No Known Allergies Allergy Verified 08/27/24 10:21 Family History Mother COPD (chronic obstructive pulmonary disease) Hypertension Diabetes Father Hypertension Alcohol abuse Surgical History History of shoulder surgery History of tonsillectomy and adenoidectomy H/O cataract removal with insertion of prosthetic lens Social History household members: friend(s) Smoking Status: Current some day smoker tobacco type: cigarettes and e- cigarettes Electronic Cigarette Use: with nicotine how long ago did patient quit smoking: Cigarette->vaping several yrs, uses heavy. alcohol intake: current alcohol intake frequency: 3 or more drinks per day details: Reports binging history. substance use type: marijuana Vital Signs Vital Signs Vital Signs: 08/27/24 10:21 08/27/24 11:20 Temperature 98.0 F Temperature Source Oral Pulse Rate 74 65 Respiratory Rate 24 H 18 Blood Pressure 138/75 H 135/73 H Blood Pressure Mean 96 93 Pulse Ox 99 94 Oxygen Delivery Method Room Air Room Air Weight Weight: 235 lb 14.314 oz Body Mass Index (BMI) 33.8 Physical Exam Const oriented x3 and no apparent distress Resp normal respiratory effort GI soft to palpation Palpation: tender Results Lab / Micro Data 08/27/24 10:30 08/27/24 10:30 Labs: Laboratory Results - last 24 hr 08/27/24 10:30: WBC 22.0 H, RBC 5.19, Hgb 15.3, Hct 43.7, MCV 84.2, MCH 29.5, MCHC 35.0, RDW Std Deviation 41.2, RDW Coeff of Danish 13.4, Plt Count 421, MPV 9.8, Immature Gran % (Auto) 0.500, Neut % (Auto) 74.4 H, Lymph % (Auto) 18.7 L, [place] % (Auto) 5.3, Eos % (Auto) 0.4, Baso % (Auto) 0.7, Absolute Neuts (auto) 16.4 H, Absolute Lymphs (auto) 4.11, Nucleated RBC % 0, Sodium 139, Potassium 3.4, Chloride 100, Carbon Dioxide 20.9 L, Anion Gap 18 H, BUN 6, Creatinine 0.96, Estim Creat Clear Calc 105.24, Est GFR (MDRD) Non-Af 93, BUN/Creatinine Ratio 6.1 L, Glucose 99, Calcium 9.6, Total Bilirubin 0.45, AST 29, ALT 14, Alkaline Phosphatase 129, Total Protein 7.5, Albumin 4.4, Globulin 3.2, Albumin/Globulin Ratio 1.4, Lipase 23 Imaging Radiology Impression Abdomen/Pelvis CT 08/27/24 11:27 IMPRESSION: 1. Small umbilical hernia containing fat and a short segment of minimally dilated small bowel. Given two transition points associated with the entry and exit from the hernia sac, early closed loop obstruction is possible. Mild upstream intraperitoneal small-bowel dilatation suggests associated early simple mechanical small-bowel obstruction. Recommend surgical consultation. 2. Trace subcutaneous inflammatory changes surrounding the hernia sac are nonspecific; correlate for the clinical diagnosis of bowel strangulation. 3. Mild bladder wall thickening versus underdistention. Correlate for cystitis. 4. Borderline mild splenomegaly. 5. Additional description as above. Reading Location: [id number] Assessment & Plan Assessment/Plan (1) Incarcerated umbilical hernia: PLAN: The patient has an incarcerated and possibly strangulated hernia at the umbilicus. It does contain a loop of small bowel on the CT scan which does havea caliber change. Patient is having nausea and vomiting. I discussed the surgery to evaluate the bowel and to repair the hernia. I discussed the possibility of having to open and resect small bowel if it appears ischemic. I discussed the risks of the procedure such as bleeding, infection, injury to underlying bowel, need for bowel resection. Patient understands the risks and is willing to proceed. I also discussed mesh placement in case the case is clean and mesh can be placed safely. Demetrius Hernández MD Pager: [facility] [address] [place] [address], [address] [place] [address] Office: 08/27/24 1302 <Electronically signed by Demetrius Hernández MD> Cosigner Signature (if applicable): CC: Dr. Demetrius Hernández MD; [facility]~ Signed [facility] Work Phone: 1(813) [phone] Discharge summary [facility] Medical Records Department [address] [place] [address] Emergency Department Summary 08/27/24 MR#: [id number] Acct: [id number] Name: MIKE HATCH Rep #:[id number] : 1970 54 From: Isis Mccormick PCP: [facility] atus:[facility] Location: [facility] A-2 HPI HPI - GI History of Present Illness Chief Complaint: Abd Pain Informant: patient Narrative Narrative: Patient is a 54-year-old male with history of spinal stenosis and back pain, alcohol abuse, schizophrenia, autism and nicotine use presenting from home for abdominal pain, nausea and vomiting. Patient states about 11 PM last night he coughed and suddenly felt a bulge in his bellybutton area. He hadpain there. He had pain throughout the night in that area but now intermittently radiates upinto his chest. He has had associated nausea and vomiting. He is concerned that his insides are black because his vomit has been dark. Does think he has passed gas today but is more unsure about that. Deniesany known history of hernia. Has not been able to eat or drink anything today. Last ate yesterday ev ening. No other complaints or concerns at this time. Denies any abdominal surgical history. [facility] Medical History Nicotine vapor product user Anxiety and depression Cannabis abuse Autism Schizophrenia Tobacco use History of alcohol abuse Alcohol abuse Cataract (lens) fragments in eye following cataract surgery, bilateral Home Medications ?Medication ?Instructions ?Recorded ?Last Taken ?Type brexpiprazole 2 mg tablet (Rexulti) 2 mg PO DAILY 07/1208/26/24 History fluoxetine 40 mg capsule 80 cap PO DAILY 11/23/2110/15 History methylphenidate HCl 20 mg tablet 20 tab PO TID 2 08/26/24 History (Ritalin) cholecalciferol (vitamin D3) 50 50 mcg PO DAILY 08/26/24 History mcg (2,000 unit) capsule (Vitamin D3) omega 4-itp-pzq-fish oil 1,000 mg 1 cap PO BID 3 08/26/24 History (120 mg-180 mg) capsule zolpidem 10 mg tablet 10 mg PO QPM 10/20/23 History prazosin 1 mg capsule 3 mg PO QHS 01/01/24 5 History tizanidine 4 mg tablet 4 mg PO QHS 01/01/24 5 History Allergy/AdvReac Type Severity Reaction Status Date / Time No Known Allergies Allergy Verified 08/27/24 10:21 Family History Mother COPD (chronic obstructive pulmonary disease) Hypertension Diabetes Father Hypertension Alcohol abuse Surgical History History of shoulder surgery History of tonsillectomy and adenoidectomy H/O cataract removal with insertion of prosthetic lens Social History household members: friend(s) Smoking Status: Current some day smoker tobacco type: cigarettes and e-cigarettes Electronic Cigarette Use: with nicotine how long ago did patient quit smoking: Cigarette->vaping several yrs, uses heavy. alcohol intake: current alcohol intake frequency: 3 or more drinks per day details: Reports binging history. substance use type: marijuana ROS ROS ED Constitutional Constitutional ED: Reports sweats; Denies fever(s) Cardiovascular Cardiovascular: Denies chest pain Respiratory/Chest Respiratory/Chest: Denies cough Gastrointestinal Gastrointestinal: Reports abdominal pain, nausea and vomiting Musculoskeletal Musculoskeletal: Denies back pain Integumentary Denies rash Neurologic Neurologic: Denies weakness Psychiatric Psychiatric: Reports anxiety Hematologic/Lymphatic Hematologic/Lymphatic: Denies easy bleeding or easy bruising EXAM Physical Exam Const Vital Signs: 08/27/24 10:21 08/27/24 11:20 08/27/24 12:00 Temperature 98.0 F Temperature Source Oral Pulse Rate 74 65 Respiratory Rate 24 H 18 Blood Pressure 138/75 H 135/73 H 141/69 H Blood Pressure Mean 96 93 93 Pulse Ox 99 94 Oxygen Delivery Method Room Air Room Air 08/27/24 13:00 08/27/24 13:25 08/27/24 14:12 Temperature 98 F 98 F Temperature Source Pulse Rate 65 62 62 Respiratory Rate 16 16 Blood Pressure 139/77 H 139/77 H 139/77 H Blood Pressure Mean 97 97 Pulse Ox 94 94 94 Oxygen Delivery Method Room Air Room Air Positive well nourished, well developed and unkempt Constitutional Narrative: Uncomfortable. General Appearance ED: unkempt and well developed HEENT Reports dry mucous membranes Mouth ED: Yes dry mucous membranes Mouth: dry mucous membranes Eyes PERRL Resp normal respiratory effort and clear to auscultation bilaterally Cardio regular rate and regular rhythm GI GI Narrative: Hypoactive bowel sounds present. There is an abdominal hernia with some mild overlying redness present. It is tender to palpation and does not reduce with direct constant pressure. Palpation: Negative for guarding or rigid Extremity full ROM Neuro Sensorium / Orientation: alert, oriented to person, oriented to place and oriented to time Motor Exam: Negative for general weakness Psych Appearance: unkempt Mood & Affect: anxious and tearful Skin Skin Narrative: Mild redness over the umbilicus MDM MDM MDM Narrative Medical decision making narrative: Patient evaluated for umbilical pain and associated nausea and vomiting. Patient appears quite uncomfortable upon initial evaluation. Appears to have incarcerated umbilical hernia. Ice pack is applied and bedside reduction attempted but unsuccessful. Patient is given pain medication including morphi neas well as Zofran and IV fluids. Workup including CBC, BMP, liver panel, lipaseand lactate as well as CT abdomen pelvis is obtained. Patient does have a significant leukocytosis of 20 but otherwise is a normal CBC. Lipase and CMP normal. Lactate is elevated which is concerning for ischemia in the setting of this acute hernia. CT of the abdomen and pelvis shows a small local hernia containing fat and a short segment of minimally dilated small bowel. There are 2 transition points associated with entry and exit of the herniasac and early closed-loop obstruction is possible. There is also signs of an early mechanical small bowelobstruction. This is consistent with patient's acute presentation. General surgery, Dr. Hernández, is paged. Evaluates the patient and will take him to the OR. Will order perioperative antibiotics. Patient is agreeable. Onrepeat evaluation he is much improved from a pain standpoint point. Lab Data Attestation: I reviewed the patient's lab results. Labs: Laboratory Results - last 24 hr 08/27/24 08/27/24 10:30 11:45 WBC 22.0 H RBC 5.19 Hgb 15.3 Hct 43.7 MCV 84.2 MCH 29.5 MCHC 35.0 RDW Std Deviation 41.2 RDW Coeff of Danish 13.4 Plt Count 421 MPV 9.8 Immature Gran % (Auto) 0.500 Neut % (Auto) 74.4 H Lymph % (Auto) 18.7 L [place] % (Auto) 5.3 Eos % (Auto) 0.4 Baso % (Auto) 0.7 Absolute Neuts (auto) 16.4 H Absolute Lymphs (auto) 4.11 Nucleated RBC % 0 Sodium 139 Potassium 3.4 Chloride 100 Carbon Dioxide 20.9 L Anion Gap 18 H BUN 6 Creatinine 0.96 Estim Creat Clear Calc 105.24 Est GFR (MDRD) Non-Af 93 BUN/Creatinine Ratio 6.1 L Glucose 99 Lactic Acid 3.9 H* Calcium 9.6 Total Bilirubin 0.45 AST 29 ALT 14 Alkaline Phosphatase 129 Total Protein 7.5 Albumin 4.4 Globulin 3.2 Albumin/Globulin Ratio 1.4 Lipase 23 Radiography Diagnostic Testing: Clinical Impression(s) from Imaging Studies Abdomen/Pelvis CT 08/27/24 11:27 IMPRESSION: 1. Small umbilical hernia containing fat and a short segment of minimally dilated small bowel. Given two transition points associated with the entry and exit from the hernia sac, early closed loop obstruction is possible. Mild upstream intraperitoneal small-bowel dilatation suggests associated early simple mechanical small-bowel obstruction. Recommend surgical consultation. 2. Trace subcutaneous inflammatory changes surrounding the hernia sac are nonspecific; correlate for the clinical diagnosis of bowel strangulation. 3. Mild bladder wall thickening versus underdistention. Correlate for cystitis. 4. Borderline mild splenomegaly. 5. Additional description as above. Reading Location: [id number] Management Discussion w/another healthcare provider: Network Consultant Discharge Plan Dx/Rx/DC Orders Clinical Impression: Incarcerated umbilical hernia, Leukocytosis, Elevated lactic acid level Disposition Disposition: Acute Care Hospital [facility] Discharge Date/Time: 08/27/24 13:36 What to do if you have Problems For any increased pain, shortness of breath, bleeding, nausea or vomiting, chestpain, or any unexpected problems, contact your Primary Care Provider. Call [facility] ([phone]) or report tothe closest Emergency Room. Call 911 if necessary. 08/27/24 1441 Cosigner Signature (if applicable): CC: [facility] ~ Signed [facility]05-07-2025 Consult note [facility] Medical Records Department [address] [place] [address] Pre-Anesthesia Evaluation 08/27/24 1406 MR#: [id number] Acct: [id number] Name: MIKE HATCH Rep #:[id number] : 1970 54 From: Ashutosh Wilkerson MD PCP: [facility] St atus:REG SDC Y Race: C [facility] AC- TBA-2 ASA Classification* ASA Classification ASA Classification: 2 (Chronic THC user, tobacco use, schizophrenia. We will RSIthis patient. ) Diana Assessment & Plan Anesthesia* Anesthesia Assessment Anesthesia Assessment: Discussed sedation and/or anesthesia options, risks, benefits, and alternatives with patient/parents/legal guardian/POA. Questions invited. The patient/parents/legal guardian/POA seems to understand and agrees to proceedwith anesthesia plan. Reviewed the physical assessment, medical history, allergy history and patient home medications list prior to surgery/procedure/anesthetic and documented any changes. Performed airway and anesthesia risk assessments. Anesthesia Type Anesthesia Type: General History Source History Obtained from:: Patient and Chart Anesthesia Focused Assessment* Temperature: 98 F Pulse Rate: 62 Blood Pressure: 139/77 Respiratory Rate: 16 Pulse Ox: 94 Oxygen Delivery Method: Room Air Airway Assessment Mouth opens: >3 cm Mallampati Score: III Teeth Condition: Intact Neck Range of motion (ROM): Full ROM Focused Labs Anesthesia Preop lab: CBC WBC 22.0 K/mm3 (4.4-11.0) H 08/27/24 10: 5 RBC 5.19 M/mm3 (4.6-6.2) 08/27/24 10:08/27/24 Hgb 15.3 g/dL (13.0-16.5) 08/27/24 10:30 08/27/24 Hct 43.7 % (40-54) 08/27/24 10:30 08/27/24 Plt Count 421 K/mm3 (150-450) 08/27/24 10:30 08/27/24 CHEMISTRY Potassium 3.4 mmol/L (3.3-5.1) 08/27/24 10:30 08/27/24 Sodium 139 mmol/L (133-145) 08/27/24 10:30 08/27/24 Magnesium 2.0 mg/dL (1.6-2.6) 11/06/23 15:06 11/06/23 Phosphorus 3.9 mg/dL (2.5-4.9) 04/19/23 15:02 04/19/23 BUN 6 mg/dL (4-19) 08/27/24 10:30 08/27/24 Creatinine 0.96 mg/dL (0.70-1.20) 08/27/24 10:30 08/27/24 Glucose 99 mg/dL (70-99) 08/27/24 10:30 08/27/24 POC Glucose 152 mg/dL (74-106) H 04/19/23 15:01 04/19/23 TSH 0.94 uIU/mL (0.358-3.74) 11/06/23 15:06 COAG Pre-Assessment Diagnosis/Proposed Procedure Planned Operative Procedure(s): Incarcerated hernia repair; see surgical notes Anesthesia History 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 When Was Last Pacemaker Check QUESTION #4 FULL TEXT: You/Your Family Experience fever (hyperthermia) with Anesthesia Last Oral Intake Last Oral intake: Last Oral Intake NPO since Meds taken in AM with sips of water? Meds patient instructed to take am of surgery PONV PONV - chemical laboratory tester: PONV - chemical laboratory tester Female HX of Motion Sickness HX of N/V After Surgery Non-Smoker Duration of Surgery greater than 60 minutes Number of Risk Factors PONV Score Height & Weight Height & Weight: Anesthesia: Height & Weight Height 5 ft 10 in 08/27/24 10:21 Weight: 107 kg 08/27/24 10:21 Body Mass Index (BMI) 33.8 08/27/24 10:21 Respiratory Assessment Respiratory Assessment - chemical laboratory tester: Respiratory Tract Infection Hx - chemical laboratory tester Hx Respiratory Tract Infection STOP Sleep Apnea STOP Sleep Apnea - chemical laboratory tester: STOP Sleep Apnea - chemical laboratory tester Hx Hypertension No 11/14/23 14:49 Hx Sleep Apnea No 11/14/23 14:49 CPAP BIPAP Do you snore loudly (louder than talking or can be heard Do you often feel tired/ fatigued/ sleepy during daytime? Has anyone observed you stop breathing during sleep? STOP Results QUESTION #5 FULL TEXT : Do you snore loudly (louder than talking or can be heard through closeddoors)? 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 Specify any problems Hx of Preganancy in last 3 Months Nurse Filling Out Transfusion & Questions: Date: Time: Patient unable to answer at this time (ie. 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 Hx Now Gestational Age (in weeks): EDC: Hx Hx Para Hx Section SAB Active Medications Active Medications: Current Medications Generic Name Dose Route Start Last Admin Trade Name Freq PRN Reason Stop Dose Admin Lactated Ringer's 1,000 mls @ 15 mls/hr 08/27/24 14:00 08/27/24 13:50 IV 15 mls/hr .Q48H CAROLA Administration PFSH Medical History Nicotine vapor product user Anxiety and depression Cannabis abuse Autism Schizophrenia Tobacco use History of alcohol abuse Alcohol abuse Cataract (lens) fragments in eye following cataract surgery, bilateral Home Medications ?Medication ?Instructions ?Recorded ?Last Taken ?Type brexpiprazole 2 mg tablet (Rexulti) 2 mg PO DAILY 0807/1208/26/24 History fluoxetine 40 mg capsule 80 cap PO DAILY 11/23/2110/15 History methylphenidate HCl 20 mg tablet 20 tab PO TID 2 08/26/24 History (Ritalin) cholecalciferol (vitamin D3) 50 50 mcg PO DAILY 08/26/24 History mcg (2,000 unit) capsule (Vitamin D3) omega 1-tdp-csz-fish oil 1,000 mg 1 cap PO BID 3 08/26/24 History (120 mg-180 mg) capsule zolpidem 10 mg tablet 10 mg PO QPM 10/20/23 History prazosin 1 mg capsule 3 mg PO QHS 01/01/24 5 History tizanidine 4 mg tablet 4 mg PO QHS 01/01/24 5 History Allergy/AdvReac Type Severity Reaction Status Date / Time No Known Allergies Allergy Verified 08/27/24 10:21 Family History Mother COPD (chronic obstructive pulmonary disease) Hypertension Diabetes Father Hypertension Alcohol abuse Surgical History History of shoulder surgery History of tonsillectomy and adenoidectomy H/O cataract removal with insertion of prosthetic lens Social History household members: friend(s) Smoking Status: Current some day smoker tobacco type: cigarettes and e-cigarettes Electronic Cigarette Use: with nicotine how long ago did patient quit smoking: Cigarette->vaping several yrs, uses heavy. alcohol intake: current alcohol intake frequency: 3 or more drinks per day details: Reports binging history. substance use type: marijuana Review of Systems (Anesthesia) ROS Narrative System reviewed and no additional complaints, except as documented. Physical Exam Const alert, oriented x3 and average body habitus Resp normal respiratory effort, normal air movement and clear to auscultation bilaterally Cardio regular rate, regular rhythm, no murmurs and diaphoretic 08/27/24 1412 > Date _ Ashutosh Wilkerson MD Cosigner Signature: Date CC: ~ Signed [facility]05-07-2025 History and physical note [facility] Medical Records Department [address] [place] [address] H&P Exam - Surgical 08/27/24 1259 MR#: [id number] Acct: [id number] Name: MIKE HATCH Rep #:[id number] : 1970 54 From: Demetrius irving MD PCP: [facility] St atus:REG ER Location: ED HPI - General HPI Narrative MIKE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 physical therapist will tell you when you can start these exercises and which ones will work best for you. How to do the exercises Note: These exercises can help you move easier and feel better. But when you first start doing them, you may have more pain in your back. This is normal. But it is important to pay close attention toyour pain during and after each exercise. Keep doing these exercises if your pain stays the same or moves from your leg and buttock more toward the middle of your spine. Pain moving out of your leg and buttock is a good sign. Stop doing these exercises if your pain gets worse in your leg and buttock. Stop if you start to have pain in your leg and buttock that you didn't have before. Be sure to do these exercises in the order they appear. Note how your pain changes before you move to the next one. If your pain is much worse right after exercise and stays worse the next day, do not do any of these exercises. 1. Rest on belly Lie on your stomach, face down, with your head turned to the side. Place your arms beside your body. If this bothers your neck, place your hands, one on top of the other, underneath your forehead. This will help support your head and neck. Try to relax your lower back muscles as much as you can. Continue to lie on your stomach for 2 minutes. If your pain spreads down your leg or increases down your leg, stop this exercise and do not do thenext exercises. 2. Press-up Lie on your stomach, face down. Keep your elbows tucked into your sides and under your shoulders. Press your elbows down into the floor to raise your upper back. As you do this, relax your stomach muscles. Allow your back to arch without using your back muscles. Let your low back relax completelyas you arch up. Hold this position for 2 minutes. Repeat 2 to 4 times. If your pain spreads down your leg or increases down your leg, stop this exercise and do not do thenext exercises. 3. Full press-up Lie on your stomach, face down. Keep your elbows tucked into your sides and under your shoulders. Straighten your elbows, and push your upper body up as far as you can. Allow your lower back to sag. Keep your hips, pelvis, and legs relaxed. Hold this position for 5 seconds, and then relax. Repeat 10 times. Each time, try to raise your upper body a little higher and hold your arms a bit straighter. If your pain spreads down your leg or gets worse down your leg, stop this exercise and do not move to the next exercise. If you can't do this exercise, you may instead try the backward bend exercise that follows. Hamstring stretch 90/90 Hamstring stretch figure 4 Hamstring wall stretch Lie on your back in a doorway, with your good leg through the open door. Slide your affected leg up the wall to straighten your knee. You should feel a gentle stretch down the back of your leg. Do not arch your back. Do not bend either knee. Keep one heel touching the floor and the other heel touching the wall. Do not point your toes. Hold the stretch for at least 1 minute to begin. Then try to lengthen the time you hold the stretchto as long as 6 minutes. Repeat 2 to 4 times. If you do not have a place to do this exercise in a doorway, there is another way to do it: Lie on your back, and bend the knee of your affected leg. Loop a towel under the ball and toes of that foot, and hold the ends of the towel in your hands. Straighten your knee, and slowly pull back on the towel. You should feel a gentle stretch down the back of your leg. Hold the stretch for 60 seconds. Repeat 2 to 4 times. documented in this [facility]02-09-2024 Hospital Discharge instructions* Discharge Instructions* Oliva Rios MD - 06/01/2023 12:36 PM EST You need to be off your feet is much as possible over the next week. He should be given tasks that do not involve you to stand or walk. Please also look into obtaining better shoes. Please take naproxen instead of ibuprofen. Please take it with food. * Attachments The following attachments cannot be sent through Care Everywhere. * Heel Pain Caused by Plantar Fasciitis ([place]) documented in this [facility]02-09-2024 Emergency department Note* Teri Reyes RN - 06/01/2023 11:37 AM EST Patient presents to ED with c/o b/l heel pain, states it has been on going x1 week. At rest pain israted 2-3/10, when up and moving pain is 8-9/10. When patient sits or sleeps and gets up the pain is severe. States once he is up moving the pain decreases. Patient is on feet a lot and moving all day long. Asked patient what type of shoes he wears and he said cheap ones, pointed to his feet. They are AND 1 shoes. A&Ox4 Breathing with ease of respirations on room air. Denies any additional needs at this time. Discussed importance of solid shoes, with good support. Patient verbalized understanding. Teri Reyes RN 06/01/23 1140 [id number] Note* Teri Reyes RN - 06/01/2023 11:37 AM EST Patient presents to ED with c/o b/l heel pain, states it has been on going x1 week. At rest pain israted 2-3/10, when up and moving pain is 8-9/10. When patient sits or sleeps and gets up the pain is severe. States once he is up moving the pain decreases. Patient is on feet a lot and moving all day long. Asked patient what type of shoes he wears and he said cheap ones, pointed to his feet. They are AND 1 shoes. A&Ox4 Breathing with ease of respirations on room air. Denies any additional needs at this time. Discussed importance of solid shoes, with good support. Patient verbalized understanding. Teri Reyes RN 06/01/23 1140 * Oliva Rios MD - 06/01/2023 11:15 AM EST Emergency Department Encounter Pt Name: Mike Hatch Birthdate 1970 Date of evaluation: 06/01/2023 Provider: OLIVA RIOS MD CHIEF COMPLAINT Chief Complaint Patient presents with Foot Pain Pt. Endorses 8 day hx of bilateral heel pain without relief from OTC tx. Pt. Denies any recent injury or wounds to the area. HISTORY OF PRESENT ILLNESS HPI Mike Hatch is a 53 y.o. 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 Occasionally has tingling of the bilateral toes when he lays down. Otherwise no other symptoms. No fever or chills. No injury or trauma. He says that because he does not have a PCP, he was sent from [facility] here for evaluation. Has been taking Tylenol and ibuprofen without improvement. Nursing Notes were reviewed. No past medical history on file. REVIEW OF SYSTEMS Several elements of the ROS reviewed and otherwise acutely negative except as in the HPI. PHYSICAL EXAM ED Triage Vitals [06/01/23 1117] Temp Heart Rate Resp BP (!) 35.9 C (96.7 F) 71 18 126/54 SpO2 Temp Source Heart Rate Source Patient Position 98 % Temporal Monitor -- BP Location FiO2 (%) -- -- Physical Exam Cardiovascular: Rate and Rhythm: Normal rate and regular rhythm. Comments: 2+ DP pulses BL Musculoskeletal: General: No swelling. Right lower leg: No edema. Left lower leg: No edema. Comments: Mild tenderness over plantar surface of the bilateral calcanei but no other calcaneal tenderness or tenderness of the BL LE. Normal active ROM of the bilateral ankles. Skin: General: Skin is warm and dry. Comments: No rash/erythema/cyanosis/echymoses of the feet Neurological: Mental Status: He is alert. Comments: Strength 5/5 with bilateral ankle and toes dorsiflexion/plantarflexion. Sensation to light touch intact. Psychiatric: Mood and Affect: Mood normal. EMERGENCY DEPARTMENT COURSE and DIFFERENTIAL DIAGNOSIS/MDM: Patient here for bilateral heel pain, possible plantar fasciitis. I do not suspect fracture. He hasno evidence of septic arthritis or cellulitis or other infection. He has good pulses into the feet.He has no swelling or erythema to suggest a venous thrombosis. I will refer the patient to podiatry. Suggest trying naproxen with food instead of ibuprofen. Patient provided ED return precautions. Diagnoses as of 06/01/23 1244 Heel pain, bilateral DISPOSITION/PLAN Discharge 06/01/2023 12:29:19 PM PATIENT REFERRED TO: No follow-up provider specified. DISCHARGE MEDICATIONS: New Prescriptions NAPROXEN (NAPROSYN) 500 MG TABLET Take 1 tablet (500 mg) by mouth 2 times daily as needed (pain) for up to 14 days. Oliva Rios MD Emergency Medicine Oliva Rios MD 06/01/23 2372 documented in this [facility]02-09-2024 Physician Emergency department Note* Oliva Rios MD - 06/01/2023 11:15 AM EST Emergency Department Encounter Pt Name: Mike Hatch Birthdate 1970 Date of evaluation: 06/01/2023 Provider: OLIVA RIOS MD CHIEF COMPLAINT Chief Complaint Patient presents with Foot Pain Pt. Endorses 8 day hx of bilateral heel pain without relief from OTC tx. Pt. Denies any recent injury or wounds to the area. HISTORY OF PRESENT ILLNESS HPI Mike Hatch is a 53 y.o. 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 Occasionally has tingling of the bilateral toes when he lays down. Otherwise no other symptoms. No fever or chills. No injury or trauma. He says that because he does not have a PCP, he was sent from [facility] here for evaluation. Has been taking Tylenol and ibuprofen without improvement. Nursing Notes were reviewed. No past medical history on file. REVIEW OF SYSTEMS Several elements of the ROS reviewed and otherwise acutely negative except as in the HPI. PHYSICAL EXAM ED Triage Vitals [06/01/23 1117] Temp Heart Rate Resp BP (!) 35.9 C (96.7 F) 71 18 126/54 SpO2 Temp Source Heart Rate Source Patient Position 98 % Temporal Monitor -- BP Location FiO2 (%) -- -- Physical Exam Cardiovascular: Rate and Rhythm: Normal rate and regular rhythm. Comments: 2+ DP pulses BL Musculoskeletal: General: No swelling. Right lower leg: No edema. Left lower leg: No edema. Comments: Mild tenderness over plantar surface of the bilateral calcanei but no other calcaneal tenderness or tenderness of the BL LE. Normal active ROM of the bilateral ankles. Skin: General: Skin is warm and dry. Comments: No rash/erythema/cyanosis/echymoses of the feet Neurological: Mental Status: He is alert. Comments: Strength 5/5 with bilateral ankle and toes dorsiflexion/plantarflexion. Sensation to light touch intact. Psychiatric: Mood and Affect: Mood normal. EMERGENCY DEPARTMENT COURSE and DIFFERENTIAL DIAGNOSIS/MDM: Patient here for bilateral heel pain, possible plantar fasciitis. I do not suspect fracture. He hasno evidence of septic arthritis or cellulitis or other infection. He has good pulses into the feet.He has no swelling or erythema to suggest a venous thrombosis. I will refer the patient to podiatry. Suggest trying naproxen with food instead of ibuprofen. Patient provided ED return precautions. Diagnoses as of 06/01/23 1244 Heel pain, bilateral DISPOSITION/PLAN Discharge 06/01/2023 12:29:19 PM PATIENT REFERRED TO: No follow-up provider specified. DISCHARGE MEDICATIONS: New Prescriptions NAPROXEN (NAPROSYN) 500 MG TABLET Take 1 tablet (500 mg) by mouth 2 times daily as needed (pain) for up to 14 days. Oliva Rios MD Emergency Medicine Oliva Rios MD 06/01/23 1716 [facility]12-28-2023 History and physical note Author Helen Villa [facility] April 19, 2023 7:31pm Note Date/Time April 19, 2023 6:19pm [facility] Medical Records Department [address] [place] [address] H&P Exam - Hospitalist 04/19/23 1815 MR#: [id number] Acct: [id number] Name: MIKE HATCH Rep #:[id number] : 1970 53 From: Helen Villa MD PCP: [facility] atus:ADM IN [id number] HPI - General General Date of Admission: 04/19/23 Date of Service: 04/19/23 Chief Complaint: Confusion HPI Narrative The patient is a 53 y/o M w/ PMHx: EtOH abuse, Anxiety and Depression/Schizophrenia/ADHD, Autism, Tobacco use who presents to the [facility] ED on04/19/23 with history of confusion worsening over the last several hours starting early in the morning at approximately 5 to 6 AM at which time he was contacted and was noted to not be making any sense over the phone therefore he was brought into the hospital to be evaluated [place] [facility] [place] [facility]. He denies any alcohol today but despite chart history says that he does not have alcohol abuse issues. Chart history has been significant for alcohol intoxication presentations. He denies any recent fever, chills, headache, abdominal pain or other URI type illnesses. Patient states in the ED that he was recently incarcerated for at least 6 months secondary to DUI and assault. His friend who was in the ED did report to staff that he had drank in last heavily 2 days prior but he denies this. He does report that when he drinks he binges but he notes that he has not drank in because he was recently incarcerated. Workup in the ED included T98.8, heart rate 108, BP 121/63, respiratory rate 28, initially 96% on room air with most recent repeat respiratory rate 25 and noted to be 92% on room air, CBC with WBC 11.9, hemoglobin 12.2, MCV 85.5, platelet 312 with left shift, CMP with chloride 109, BUN/creatinine 22/1.72, AST/LT 46/27 otherwise panic profile not marked appearing, urinalysis with elevated specific remedy 1.025, protein 30, ketone 5,negative nitrite, leukocyte esterase 25 with no obvious evidence of UTI, ethyl alcohol level less than 3, CT of the brain with no acute intracranial findings, chest x-ray with no acute cardiopulmonary disease. In the ED patient administered 1L NS. [facility] Medical History Alcohol abuse Anxiety and depression Autism Cannabis abuse Cataract (lens) fragments in eye following cataract surgery, bilateral Nicotine vapor product user Schizophrenia Tobacco use Home Medications brexpiprazole 2 mg tablet (Rexulti) 2 tab PO DAILY 11/23/21 [History Last Taken Unknown] fluoxetine 40 mg capsule 80 cap PO DAILY 11/23/21 [History Last Taken Unknown] methylphenidate HCl 20 mg tablet (Ritalin) 20 tab PO TID 11/23/21 [History Last Taken Unknown] prazosin 1 mg capsule 2 mg PO QHS 11/23/21 [History Last Taken Unknown] prazosin 1 mg capsule (Minipress) 1 cap PO LUNCH 11/23/21 [History Last Taken Unknown] zolpidem 10 mg tablet (Ambien) 10 tab PO QHS 11/23/21 [History Last Taken Unknown] tizanidine 4 mg tablet 4 mg PO DAILY 09/25/22 [History Last Taken Unknown] cholecalciferol (vitamin D3) 50 mcg (2,000 unit) capsule (Vitamin D3) 50 mcg PO DAILY 10/02/22 [History Last Taken Unknown] divalproex 250 mg tablet,delayed release 500 mg PO DAILY 10/02/22 [History Last Taken Unknown] divalproex 250 mg tablet,delayed release 750 mg PO QHS 10/02/22 [History Last Taken Unknown] hydroxyzine pamoate 50 mg capsule 50 mg PO BID 10/02/22 [History Last Taken Unknown] omega [id number]-aki-fish oil 1,000 mg (120 mg-180 mg) capsule 1 cap PO BID 10/02/22 [History Last Taken Unknown] quetiapine 100 mg tablet 100 mg PO DAILY 10/02/22 [History Last Taken Unknown] quetiapine 100 mg tablet 300 mg PO DAILY 10/02/22 [History Last Taken Unknown] trazodone 100 mg tablet 100 mg PO QHS PRN Sleep 10/02/22 [History Last Taken Unknown] Allergy/AdvReac Type Severity Reaction Status Date / Time No Known Allergies Allergy Verified 10/06/22 19:42 Family History (Updated 04/19/23 @ 19:[address] Helen Villa MD) Mother COPD (chronic obstructive pulmonary disease) Hypertension Diabetes Father Hypertension Alcohol abuse Surgical History (Updated 04/19/23 @ 19:[address] Helen Villa MD) H/O cataract removal with insertion of prosthetic lens History of appendectomy History of shoulder surgery History of tonsillectomy and adenoidectomy Social History (Updated 04/19/23 @ 19:[address] Helen Villa MD) household members: friend(s) Smoking Status: Current every day smoker tobacco type: e-cigarettes Electronic Cigarette Use: with nicotine how long ago did patient quit smoking: Cigarette->vaping several yrs, uses heavy. alcohol intake: current alcohol intake frequency: 3 or more drinks per day details: Reports binging history. substance use type: marijuana ROS ROS Narrative Admission Review of Systems: CONSTITUTIONAL: No weight loss, fever, chills, + weakness or fatigue. HEENT: Eyes: No visual loss, blurred vision, double vision or yellow sclerae. Ears, Nose, Throat: No hearing loss, sneezing, congestion, runny nose or sore throat. SKIN: No rash or itching, lesions, wounds. CARDIOVASCULAR: No chest pain, chest pressure or chest discomfort, palpitations,edema, orthopnea, syncopal events. RESPIRATORY: No shortness of breath, cough or sputum, wheezing, hemoptysis. GASTROINTESTINAL: No anorexia, nausea, vomiting or diarrhea, abdominal pain, melena, BRBPR. GENITOURINARY: No dysuria, frequency, urgency or retention. NEUROLOGICAL: + Reports feeling fatigued and mildly confused. No headache, dizziness, syncope, paralysis, ataxia, numbness or tingling in the extremities, focal weakness, change in bowel or bladder control, seizure. MUSCULOSKELETAL: + muscle, back pain, joint pain or stiffness. HEMATOLOGIC: + anemia, easy bleeding/bruising. LYMPHATICS: No enlarged nodes. No history of splenectomy. PSYCHIATRIC: + Anxiety and depression/schizophrenia. ENDOCRINOLOGIC: No reports of sweating, cold or heat intolerance. No polyuria orpolydipsia. ALLERGIES: No history of asthma, hives, eczema or rhinitis. Vital Signs Vital Signs Vital Signs: 04/19/23 14:55 04/19/23 15:00 04/19/23 17:18 Temperature 98.8 F Temperature Source Oral Pulse Rate 108 H 105 H 85 Respiratory Rate 28 H 25 H 16 Blood Pressure 121/63 H 114/54 L 114/77 Blood Pressure Mean 82 74 89 Pulse Ox 96 92 97 Oxygen Delivery Method Room Air Room Air Room Air Physical Exam Narrative Physical Examination: General: Awake, alert, oriented to self, place, month, year, able to describe president but could not recall his name at the moment, remains cooperative, seated upright in ED bed, fatigued and answering slowly but per discussion with ED staff does appear to be improved since initial arrival. Skin: Normal color, normal turgor, no icterus, no cyanosis, occasional staged ecchymoses, abrasion. HEENT: AT/NC, EOMI, PERRLA, dry MM, no carotid bruits or JVD noted. Lungs: CTA bilaterally, moderate effort, mild decrease BL bases, no rales, ronchi or wheezing. Heart: Regular rate and rhythm; no gallop, rub audible. Abdomen: Soft, obese, NTTP, ND, hyperactive BS, mild HM appreciated. Extremities: No cyanosis, clubbing, or edema. Neurological: Patient awake, alert, oriented as noted, cognitive function seems to improved since to ED arrival and patient is currently oriented, patient is slow to answer and seems fatigued but also has underlying autism thus it is difficult to tell if this is his baseline or different as his friend has alreadyleft; pupils equally reactive to light and accommodation, cranial nerves grosslynormal, moving all 4 extremities, no focal deficits, strength mildly to moderately global decreased. Psychiatric: Affect appears flat, fatigued, slow responses, no acute evidence ofdepressive or anxiety feelings but does have underlying history as well as schizophrenia unclear type complicated by also autism. Results Lab / Micro Data 04/19/23 15:02 04/19/23 15:02 Labs: Laboratory Results - last 24 hr 04/19/23 15:01: POC Glucose 152 H 04/19/23 15:02: WBC 11.9 H, RBC 4.47 L, Hgb 12.2 L, Hct 38.2 L, MCV 85.5, MCH 27.3, MCHC 31.9 L, RDW Std Deviation 39.9, RDW Coeff of Danish 12.9, Plt Count 312,MPV 9.3, Immature Gran % (Auto) 0.300, Neut % (Auto) 74.1 H, Lymph % (Auto) 16.3L, [place] % (Auto) 6.4, Eos % (Auto) 2.0, Baso % (Auto) 0.9, Absolute Neuts (auto)8.8 H, Absolute Lymphs (auto) 1.95, Nucleated RBC % 0, Sodium 141, Potassium 3.8, Chloride 109 H, Carbon Dioxide 23.0, Anion Gap 9, BUN 22 H, Creatinine 1.72H, Est GFR (MDRD) Af Amer 53 L, Est GFR (MDRD) Non-Af 44 L, BUN/Creatinine Ratio12.8, Glucose 161 H, Calcium 8.9, Total Bilirubin 0.30, AST 46 H, ALT 27, Alkaline Phosphatase 73, Total Protein 7.3, Albumin 3.8, Globulin 3.5, Albumin/Globulin Ratio 1.1 04/19/23 15:46: Ethyl Alcohol < 3.0 04/19/23 16:49: Urine Color Yellow, Urine Clarity Clear, Urine pH 5.0, Ur Specific [place] 1.025, Urine Protein 30 H, Urine Glucose (UA) Normal, Urine Ketones 5 H, Urine Occult Blood Negative, Urine Nitrite Negative, Urine Bilirubin Negative, Urine Urobilinogen 1 H, Ur Leukocyte Esterase 25 H, Urine RBC 0 SEEN, Urine WBC 0-5 SEEN, Ur Squamous Epith Cells 0 SEEN, Urine Bacteria 0SEEN, Urine Mucus 1+ Rhythm Strip Rhythm Strip: Sinus Tach Rate: 107 Ectopy: None Imagaing Radiology Impression Brain CT 04/19/23 15:40 IMPRESSION: Normal unenhanced CT scan of the brain. Electronically Signed: Robert Berg MD at 16:26 EST Reading Location ID and State: [facility] / [place] Tel , Service support , Chest X-Ray 04/19/23 15:48 IMPRESSION: No acute disease Electronically Signed: Robert Berg MD at 16:16 EST Reading Location ID and State: [facility] / [place] Tel , Service support , Assessment & Plan Assessment/Plan (1) Altered level of consciousness: PLAN: Plan The patient is a 53 y/o M w/ PMHx: EtOH abuse, Anxiety and Depression/Schizophrenia/ADHD, Autism, Tobacco use who presents to the [facility] ED on 04/19/23 with history of confusion worsening over the last several hours starting early in themorning at approximately 5 to 6 AM at which time he was contacted and was noted to not be making any sense over the phone therefore he was brought into the hospital to be evaluated reportedly recently being released from [place] [facility]. He denies any alcohol today but despite chart history says that he does not have alcohol abuse issues. #1. Acute Encephalopathy, unclear exact etiology, possibly secondary to Acute EtOH Withdrawal versus Polypharmacy overdose: Will admit to [facility], routine labs obtained in the ED upon presentation and notable for YASMIN. UDS requested. Given unclear if withdrawal or polypharmacy will hold on protocol with Phenobarbital until assure he is not just polypharmacy. Will consult Case management for EtOH abuse and possible overdose/accidental. Mag, phos pending. Maintain on CIWA protocol concurrently. Procalcitonin requested. Maintain on MVI/Thiamine/Folic acid. #2. Acute kidney injury: Secondary to acute presentation, poor intake. Admission BUN/Cr 22/1.72, prior baseline creatinine noted to be primarily 0.7-1.0. Will hydrate, hold nephrotoxic medications and repeat chemistry in AM. If no improvement would plan FeNa and renal ultrasound assessment. #3. Hyperglycemia: Admission glucose 161, possibly due to stress response, willobtain hemoglobin A1c be cautious. #4. Chronic normocytic anemia: Admission hemoglobin 12.2, MCV 85.5, baseline appears 11-12, stable, likely a component of underlying alcohol abuse, continue to trend. #5. Anxiety and depression/ADHD/Schizophrenia unclear type, Autism: Patient with significant psychiatric medications, will clarify and assure these are correct and renally dose as needed given acute kidney injury if able to obtain correct regimen with hold on sedative regimen also as needed given his presentation and possible polypharmacy. Case management/social work consulted as likely his underlying psychiatric disease history contributes greatly to his alcohol abuse. #6. Tobacco Abuse: Encouraged cessation, inpatient consultation per RT, NR if desired. #7. DVT prophylaxis: Heparin. #8. CODE STATUS: Full code. Charges/Coding Visit Charges Inpatient E&M: 63709 Init Hosp L3 04/19/231930 <Electronically signed by Helen Villa MD> Cosigner Signature (if applicable): CC: Dr. Helen Villa MD; [facility]~ Signed [facility] Work Phone: [phone]) 849-809512-28-2023 Discharge summary Author Camilo Verdugo [facility] April 19, 2023 6:26pm Note Date/Time April 19, 2023 3:49pm [facility] Medical Records Department [address] [place] [address] Emergency Department Summary 04/19/23 MR#: [id number] Acct: [id number] Name: MIKE HATCH Rep #:[id number] : 1970 53 From: Camilo Verdugo MD PCP: [facility] St atus:REG ER Location: ED HPI History of Present Illness Chief Complaint: Confusion Detail of Chief Complaint: Mental status change since this morning Informant: patient and family Onset/Context/Timing Onset: Today and Hours Context: Gradual Onset Timing: Continuous Current Severity: Moderate Maximum Severity: Moderate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 BMI 34.44kg/m Physical Exam Vitals reviewed. Constitutional: Appearance: Normal [...] AP/LAT/L5-S1 Janelle Prabhakar PA-C documented in this encounterSelect [facility]04-22-2022 Instructions* Patient Instructions* Gustavo Gutierrez MD - 08/12/2021 10:41 AM [...] any questions please contact our office at [phone]. After office hours or on the weekend, please call Dr. Gutierrez on his cell phone at [phone]. documented in this encounterSelect [facility]04-22-2022 History of Present illness Narrative* Gustavo Gutierrez MD - 08/12/2021 10:38 AM EDT ASSESSMENT/PLAN: 1. Status post cataract extraction and [...] findings as obtained by the ophthalmic technical staff.I have seen and examined Mike Hatch. I have discussed the examination findings, diagnosis,and treatment options with Mike Hatch and/or his family. I have also reviewed and agree with the assessment and plan as stated above and agree with all its relevant components. I gave the patient the opportunity to ask questions about the findings, diagnosis, and treatment options. documented in this encounterSelect [facility]04-21-2022 NotePost Operative Note: Post-Procedure Diagnosis: 1. Combined Form Age Related Cataract Left Eye Procedure: 1. Cataract Extraction with Intraocular Lens Implant Left Eye Surgeon: Gustavo Gutierrez MD Resident/Fellow/Other Relaster: None Estimated Blood Loss (mL): none Specimen: [...] Completion Last Updated: 11-Aug-2021 08:12 by Gustavo Gutierrez)[facility] 08-11-2021 NoteHistory & Physical Reviewed: I have reviewed the History and Physical [...] Completion Last Updated: 11-Aug-2021 06:57 by Gustavo Gutierrez)[facility] 08-02-2021 Instructions* Patient Instructions* Gustavo Gutierrez MD - 08/02/2021 2:56 PM EDT Current Ophthalmic Meds fluorometholone (FML LIQUID FILM) 0.1 % ophthalmic suspension Use 1 Drop in the left eye three times daily. propylene glycoL (SYSTANE COMPLETE) 0.6 % drop Use 1 Drop in both eyes three times daily. If you have any questions please contact our office at [phone]. After office hours or on the weekend, please call Dr. Gutierrez on his cell phone at [phone]. documented in this encounterSelect [facility]04-12-2022 History of Present illness Narrative* Gustavo Gutierrez MD - 08/02/2021 2:50 PM EDT ASSESSMENT/PLAN: 1. Combined forms of age-related cataract of left eye - ICD9: 366.19, ICD10: H25.812 (primary diagnosis) Patient wishes to have traditional cataract surgery with basic Intraocular lens left eye scheduled on 08/11/21. Patient wishes to have cataract surgery with the option stated above. Patient understands that an intraocular lens implant does not necessarily replace the need for glasses. Patient understands that it is impossible for the surgeon to inform him/her of every possible complication that may occur. The surgeon has answered all of the patient's questions. Patient understands that if he/shehas a mature or dense cataract, pseudoexfoliation cataract, or history of use of Flomax, he/she mayrequire the use of Maluyugin Ring and/or Vision Blue during surgery. Patient understands the risks,benefits, and alternatives to surgery. Continue Current Ophthalmic Meds fluorometholone (FML LIQUID FILM) 0.1 % ophthalmic suspension Use 1 Drop in the left eye three times daily. propylene glycoL (SYSTANE COMPLETE) 0.6 % drop Use 1 Drop in both eyes three times daily. Cataract Presurgical Documentation Cataract: Left eye (OS) Patient reported symptoms: Associated symptoms Positive for: Blurred Vision, difficulty with driving, difficulty with reading, difficulty with watching television, halos, glare, starbursts Negative for: Eye Redness, foreign body sensation, flashes, tearing Current Visual Acuity: Right Eye Distance CC 20/20 Left Eye Distance CC 20/40 Best Corrected Vision Left Eye 20/60 Glare Testing: Left Eye Medium 20/80 Visual Function: Mike Hatch states that the decline in vision from the cataract impedes the ability to drive and to read as well as other activities of daily living. Mike Hatch has confirmed that he is no longer [...] with lens implantation were discussed with Mike Hatch in detail. he appeared to understand and asked that Iproceed with plans for surgery. PHYSICAL EXAM: Vital Signs: Blood pressure 113/77, pulse 60. Respiratory: Normal breath sounds, no wheezing. CARD: Normal heart sounds 1 & 2, normal sinus rhythm. 2. Status post cataract extraction and insertion of intraocular lens of right eye - ICD9: V45.61, V43.1, ICD10: Z98.41, Z96.1 - Intraocular lens in good position 3. Regular astigmatism, bilateral - ICD9: 367.21, ICD10: H52.223 Patient understands the need for glasses for all near and intermediate vision including reading andcomputer work. He/she declines monovision. He/she was offered a Toric Intraocular lens to correct astigmatism, but he/she declines the Toric Intraocular lens. Patient understands that he/she will need glasses to correct residual astigmatism at all distances after cataract surgery. 4. 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 Patient understands the risks, benefits, and alternatives to surgery. 5. Anxiety - ICD9: 300.00, ICD10: F41.9 - Continue care with primary care physician Gustavo Gutierrez MD documented in this encounterSelect Medical [facility]03-17-2022 History of Present illness Narrative* Jaclyn Paula RT(R) - 07/07/2021 9:40 AM EDT Radiology Service Progress Note PATIENT NAME: Mike Hatch DATE OF SERVICE: July 07, 2021 TIME: 9:50 AM PATIENT IDENTITY VERIFICATION COMPLETED USING TWO (2) IDENTIFIERS: Name and Date of confirmedby patient verbally. FALL SCREENING: Has the patient had 2 falls in the last year or 1 fall with injury or currently using an Ambulatory Assistive Device (Walker, Cane, Wheelchair, Crutches, etc.)? No PATIENT GENDER DATA: Male PATIENT RELEVANT IMPLANT DATA REVIEWED: Yes RADIOLOGY DEPARTMENT: General X-ray: Exam(s) Completed: Upper Extremity X- Ray(s): Hand, right PERIPHERAL IV DATA: Not applicable SIGNED BY: RT Liat(R) July 07, 2021 9:50 AM documented in this encounterSelect Medical [facility]01-25-2022 History of Past illness Narrative* Problem Noted Date Resolved Date Combined forms of age-related cataract of right eye 05/17/2021 06/11/2021 Adult ADHD 07/07/2021 documented as of this encounter (statuses as of 07/18/2021) [facility] History of Past illness Narrative* Problem Noted Date Resolved Date Combined forms of age-related cataract of right eye 05/17/2021 06/11/2021 Adult ADHD 07/07/2021 documented as of this encounter (statuses as of 08/02/2021) [facility] History of Past illness Narrative* Problem Noted Date Resolved Date Combined forms of age-related cataract of right eye 05/17/2021 06/11/2021 Combined forms of age-related cataract of left e ye 05/17/2021 08/12/2021 Adult ADHD 07/07/2021 documented as of this encounter (statuses as of 08/12/2021) [facility] History of Past illness Narrative* Problem Noted Date Resolved Date Combined forms of age-related cataract of right eye 05/17/2021 06/11/2021 Combined forms of age-related cataract of left e ye 05/17/2021 08/12/2021 Adult ADHD 07/07/2021 documented as of this encounter (statuses as of 09/18/2021) [facility] History of Past illness Narrative* Problem Noted Date Resolved Date Combined forms of age-related cataract of right eye 05/17/2021 06/11/2021 Combined forms of age-related cataract of left e ye 05/17/2021 08/12/2021 Adult ADHD 07/07/2021 documented as of this encounter (statuses as of 09/21/2021) [facility], IncConsult note Author Torey Soriano [facility] Note Date/Time August 29, 2024 2:40pm [facility] Medical Records Department [address] [place] [address] Counseling Note - Pharmacy 08/29/24 1439 MR#: [id number] Acct: [id number] Name: MIKE HATCH Rep #:[id number] : 1970 54 From: Torey Soriano [facility] St atus:[facility] IN [facility] Location: MS3 [id number] Pharmacy [facility] has performed discharge medication reconciliation and counseling for this patient. The patient's discharge medication list was reviewed for discrepancies and discrepancies were resolved. The patient was counseled on the following discharge medications and changes in medications for homegoing were reviewed. The Reason for Use, instructions for use, and potential side effects were reviewed for all new medications. The patient's questions regarding all of their medications were answered. 1. Oxycodone 5-10 mg PO Q4H PRN pain 4-10/10 The patient was able to verbally demonstrate an understanding of their dischargemedications. Medications at Discharge Home Medications brexpiprazole 2 mg tablet (Rexulti) 2 mg PO DAILY 11/23/21 fluoxetine 40 mg capsule 80 cap PO DAILY 11/23/21 methylphenidate HCl 20 mg tablet (Ritalin) 20 tab PO TID 11/23/21 cholecalciferol (vitamin D3) 50 mcg (2,000 unit) capsule (Vitamin D3) 50 mcg PO DAILY 10/02/22 omega 3-iwk-ewy-fish oil 1,000 mg (120 mg-180 mg) capsule 1 cap PO BID 10/02/22 zolpidem 10 mg tablet 10 mg PO QPM 10/20/23 prazosin 1 mg capsule 3 mg PO QHS 01/01/24 tizanidine 4 mg tablet 4 mg PO QHS 01/01/24 oxycodone 5 mg tablet 5 - 10 mg (1 - 2 x 5 mg) PO Q4H PRN PRN Pain Score 4-10 5 days #20 tabs 08/29/24 08/29/24 1440 <Electronically signed by Torey stephenson> Date _ Torey Soriano Cosigner Signature (if applicable): Date CC: ~ Signed [facility] Work Phone: Discharge summary Author Jeanette Tripathi [facility] April 20, 2023 12:01pm Note Date/Time April 20, 2023 11:51am [facility] Medical Records Department [address] [place] [address] Discharge Summary 04/20/23 1150 MR#: [id number] Acct: [id number] Name: MIKE HATCH Rep #:[id number] : 1970 53 From: Jeanette Tripathi DO PCP: [facility] St atus:ADM BEBETO Location: [facility] [id number] Providers Date of Admission: 04/19/23 Date of Discharge: 04/20/23 Primary Care Physician: [facility] Reason For Visit: ENCEPHALOPATHY SUSPECTED ETOH WITHDRAWAL/POLYPHARM Diagnosis Discharge Diagnosis (1) Altered level of consciousness: Status: Acute Code(s): R40.4 - Transient alteration of awareness Medications at Discharge Home Medications brexpiprazole 2 mg tablet (Rexulti) 2 tab PO DAILY 11/23/21 fluoxetine 40 mg capsule 80 cap PO DAILY 11/23/21 methylphenidate HCl 20 mg tablet (Ritalin) 20 tab PO TID 11/23/21 prazosin 1 mg capsule 2 mg PO QHS 11/23/21 prazosin 1 mg capsule (Minipress) 1 cap PO LUNCH 11/23/21 tizanidine 4 mg tablet 4 mg PO DAILY 09/25/22 cholecalciferol (vitamin D3) 50 mcg (2,000 unit) capsule (Vitamin D3) 50 mcg PO DAILY 10/02/22 divalproex 250 mg tablet,delayed release 500 mg PO DAILY 10/02/22 divalproex 250 mg tablet,delayed release 750 mg PO QHS 10/02/22 hydroxyzine pamoate 50 mg capsule 50 mg PO BID 10/02/22 omega 5-hlt-hyx-fish oil 1,000 mg (120 mg-180 mg) capsule 1 cap PO BID 10/02/22 quetiapine 100 mg tablet 100 mg PO DAILY 10/02/22 quetiapine 100 mg tablet 300 mg PO DAILY 10/02/22 trazodone 100 mg tablet 100 mg PO QHS PRN Sleep 10/02/22 Hospital Course Procedures EKG and - (Chest x-ray/CT brain) Summary of Care Provided Minutes Spent on Discharge: 25 Hospital Course: Mr. Hatch is a 53-year-old white male with a past medical history of alcohol abuse, anxiety and depression, schizophrenia, and autism who presented to the emergency department on 04/19/2023 with a history of worsening confusion. Evidently, he started becoming confused approximately 5 to 6 AM and was noted not to be making any sense so he was brought to the hospital to be evaluated. He was recently released from [facility]. He denies any other symptoms. Patient reported the emergency department he had been recently incarcerated for at least6 months due to a DUI and assault. His friend who was in the emergency department did report to the ED staff that the patient had drank heavily 2 days prior but patient denied this. Vital signs on presentation were unremarkable. CBC was unremarkable. His BUN was 22 with a elevated creatinine 1.72. Liver function enzymes were slightly elevated but less than 100. UA was consistent with dehydration but no evidence of UTI. His ethyl alcohol level was less than 3. CT of the brain showed no acute findings. His toxicology screen was positive for opiates, cannabis and MDMA however he is on Ritalin at baseline. In the emergency room he was treated only with IV fluids and then admitted to the medical floor. Etiology was unclear but polypharmacy was thought to possibly contribute. His procalcitonin was unremarkable at less than 0.01. At the time of admission the patient was oriented x 3. With 1 L of IV fluids his serum creatinine has returned to baseline and is currently 0.83. I evaluated the patient on the morning of 04/20/2023 and he was alert and oriented x 3. Patient states he was recently released from [place] [facility] on 17 April and he had not been getting his medications. He restarted them at discharge and feels like this event was likely related to Ambien he took. He stated he took Ambien earlier in the evening but was not quite ready to go to sleep and then suspects he became confused when his friend tried to call him. He does acknowledge he has an alcohol problem and plans on being admitted at [facility] for inpatient rehab on 04/24/2023 after he ties up loose ends at home. I encouraged him strongly to follow through with these plans and to avoid taking Ambien at all costs especially if he is not going to sleep right away. I suspect his altered level of consciousness was related to this. He states he has medications for athome and does not need any refills. We did discuss follow-up with psychiatry and he did voice interest however would like to follow with [place] first. I did give him a referral for Dr. Ashraf to make an appointment after he is done with alcohol rehabilitation program. Discharge diagnoses: Toxic/metabolic encephalopathy-likely related to Ambien use YASMIN-resolved Chronic normocytic anemia Schizophrenia Autism Anxiety/depression ADHD Tobacco abuse Alcohol abuse Physical Exam Narrative Patient states he is currently feeling well. No complaints. States he feels that last night events were related to Ambien. Const alert, oriented x3, no apparent distress, no limitations, healthy appearing and well nourished Constitutional Narrative: Obese, middle-aged, white male, sitting up in bed, appears comfortable and nontoxic, nursing at bedside General Appearance: cooperative, comfortable, well kempt and well developed Orientation / Consciousness: awake, oriented to person, oriented to place and oriented to time Exam Limitations: no limitations Nutritional Appearance: obese HEENT normocephalic, head/scalp atraumatic, hearing grossly normal bilaterally and moist oral mucous membranes HEENT Narrative: Mallampati 2, no thrush Resp normal respiratory effort, no retractions, no use of accessory muscles and clearto auscultation bilaterally Resp Narrative: Diffusely diminished but clear Auscultation: Negative for rales, rhonchi or wheezes Cardio regular rate, regular rhythm, S1 normal heart sound, S2 normal heart sound, no murmurs, no rub, no gallops and no clicks GI normal to inspection, nondistended, normoactive bowel sounds, soft to palpation and non-tender Extremity no clubbing, cyanosis or edema Neuro oriented x3, CN's II-XII intact bilaterally, moves all extremities and no focal motor deficits Speech: speech normal Motor Exam: strength 5/5 throughout Psych affect normal Psych Narrative: Eye contact is good, patient interacts appropriately, able answer all questions appropriately Weight / BMI Weight Weight: 114 kg Body Mass Index (BMI) 36.0 ABG / Lab / Microbiology Data 04/20/23 06:00 04/20/23 06:00 Laboratory: Laboratory Results - last 24 hr 04/19/23 15:01: POC Glucose 152 H 04/19/23 15:02: WBC 11.9 H, RBC 4.47 L, Hgb 12.2 L, Hct 38.2 L, MCV 85.5, MCH 27.3, MCHC 31.9 L, RDW Std Deviation 39.9, RDW Coeff of Danish 12.9, Plt Count 312,MPV 9.3, Immature Gran % (Auto) 0.300, Neut % (Auto) 74.1 H, Lymph % (Auto) 16.3L, [place] % (Auto) 6.4, Eos % (Auto) 2.0, Baso % (Auto) 0.9, Absolute Neuts (auto)8.8 H, Absolute Lymphs (auto) 1.95, Nucleated RBC % 0, Sodium 141, Potassium 3.8, Chloride 109 H, Carbon Dioxide 23.0, Anion Gap 9, BUN 22 H, Creatinine 1.72H, Est GFR (MDRD) Af Amer 53 L, Est GFR (MDRD) Non-Af 44 L, BUN/Creatinine Ratio12.8, Glucose 161 H, Calcium 8.9, Phosphorus 3.9, Magnesium 2.2, Total Bilirubin0.30, AST 46 H, ALT 27, Alkaline Phosphatase 73, Total Protein 7.3, Albumin 3.8,Globulin 3.5, Albumin/Globulin Ratio 1.1 04/19/23 15:46: Ethyl Alcohol < 3.0 04/19/23 16:49: Urine Color Yellow, Urine Clarity Clear, Urine pH 5.0, Ur Specific [place] 1.025, Urine Protein 30 H, Urine Glucose (UA) Normal, Urine Ketones 5 H, Urine Occult Blood Negative, Urine Nitrite Negative, Urine Bilirubin Negative, Urine Urobilinogen 1 H, Ur Leukocyte Esterase 25 H, Urine RBC 0 SEEN, Urine WBC 0-5 SEEN, Ur Squamous Epith Cells 0 SEEN, Urine Bacteria 0SEEN, Urine Mucus 1+, Urine Opiates Screen POSITIVE H, Urine Methadone Screen NEGATIVE, Ur Barbiturates Screen NEGATIVE, Ur Phencyclidine Scrn NEGATIVE, Ur Amphetamines Screen NEGATIVE, MDMA (Ecstasy) Screen POSITIVE H, U Benzodiazepines Scrn NEGATIVE, Urine Cocaine Screen NEGATIVE, U Cannabinoids Screen POSITIVE H, Ur Drug Screen Comment 04/19/23 18:35: Procalcitonin < 0.01 04/20/23 06:00: WBC 8.2, RBC 3.82 L, Hgb 10.8 L, Hct 33.2 L, MCV 86.9, MCH 28.3,MCHC 32.5, RDW Std Deviation 41.0, RDW Coeff of Danish 13.0, Plt Count 235, MPV 9.0, Immature Gran % (Auto) 0.100, Neut % (Auto) 57.3, Lymph % (Auto) 25.5, [place]os[place]% (Auto) 10.2 H, Eos % (Auto) 5.8 H, Baso % (Auto) 1.1 H, Absolute Neuts (auto) 4.7, Absolute Lymphs (auto) 2.08, Nucleated RBC % 0, Sodium 142, Potassium 3.9, Chloride 114 H, Carbon Dioxide 26.0, Anion Gap 2 L, BUN 16, Creatinine 0.83, Estim Creat Clear Calc 103.83, Est GFR (MDRD) Af Amer 124, Est GFR (MDRD) Non-Af102, BUN/Creatinine Ratio 19.3, Glucose 94, Hemoglobin A1c 5.0, Calcium 8.1 L, Total Bilirubin 0.40, AST 40 H, ALT 22, Alkaline Phosphatase 55, Total Protein 5.5 L, Albumin 2.7 L, Globulin 2.8, Albumin/Globulin Ratio 1.0 Radiography Diagnostic Testing: Radiology Impression Brain CT 04/19/23 15:40 IMPRESSION: Normal unenhanced CT scan of the brain. Electronically Signed: Robert Berg MD at 16:26 EST Reading Location ID and State: [address] [place] [address] Tel , Service support , Chest X-Ray 04/19/23 15:48 IMPRESSION: No acute disease Electronically Signed: Robert Berg MD at 16:16 EST Reading Location ID and State: [address] [place] [address] Tel , Service support , D/C Instructions Discharge Diet: No restrictions Discharge Activity: Return to Normal Activity Meaningful Use Info Meaningful Use Diagnoses (Choose all that apply): None applicable Discharge Plan Admission Admit Date/Time: 04/19/23 18:18 Primary Reason for Your Visit: Altered level of consciousness Attending Provider: Jeanette Tripathi Primary Care Provider: [facility] Aimee Small Consulting Providers: Helen Villa Instructions Patient Instructions: ED ALOC, ED Confusion Discharge Orders/Prescriptions Prescriptions: Continued fluoxetine 40 mg capsule 80 cap PO DAILY Patient Comments: TAKE 2 CAPSULES BY MOUTH ONCE DAILY methylphenidate HCl [Ritalin] 20 mg tablet 20 tab PO TID Patient Comments: TAKE 1 TABLET THREE TIMES DAILY prazosin 1 mg capsule 2 mg PO QHS Patient Comments: take 1 capsule daily at 2 pm and 2 capsules by mouth at bedtime prazosin [Minipress] 1 mg capsule 1 cap PO LUNCH Patient Comments: take 1 capsule daily at 2 pm and 2 capsules by mouth at bedtime Rexulti 2 mg tablet 2 tab PO DAILY Patient Comments: take one tablet by mouth every morning tizanidine 4 mg tablet 4 mg PO DAILY Patient Comments: take one tab once daily as needed for muscle pain divalproex 250 mg tablet,delayed release (DR/EC) 500 mg PO DAILY divalproex 250 mg tablet,delayed release (DR/EC) 750 mg PO QHS hydroxyzine pamoate 50 mg capsule 50 mg PO BID Patient Comments: s/o unsure if hes been taking quetiapine 100 mg Tablet 100 mg PO DAILY Patient Comments: s/o unsure dosage of this medication Rx Instructions: EVERYDAY AT NOON. quetiapine 100 mg Tablet 300 mg PO DAILY Rx Instructions: TAKE 3 TABLETS AT BEDTIME. trazodone 100 mg tablet 100 mg PO QHS PRN (Reason: Sleep) Patient Comments: unsure if taking cholecalciferol (vitamin D3) [Vitamin D3] 50 mcg (2,000 unit) Capsule 50 mcg PO DAILY omega 0-ebe-ynt-fish oil 1,000 mg (120 mg-180 mg) capsule 1 cap PO BID Patient Comments: s/o unsure if pt. was getting [facility] [place] [facility] Discontinued zolpidem [Ambien] 10 mg tablet 10 tab PO QHS Patient Comments: TAKE 1 TABLET BY MOUTH EVERY EVENING for insomnia. Referrals / Follow Up: Moises Ashraf DO [Med Staff - Auto Washer] - Within 1 Month (Call for an appointment to see the psychiatrist after you have completed your alcohol rehabilitation program at [facility] [Primary Care Provider] - Within 1 Month Disposition Disposition (needs filled in before D/C Order can be placed): Home, Self Care Charges/Coding Visit Charges Inpatient E&M: 21281 Disch Hosp 04/20/23 1201 <Electronically signed by Jeanette Tripathi DO> Cosigner Signature (if applicable): CC: Dr. Jeanette Tripathi, ; [facility]~ Signed [facility] Work Phone: Evaluation note* Diagnosis Combined forms of age-related cataract [...] of senile cataract documented in this encounter [facility] note* Diagnosis Status post cataract extraction and insertion of intraocular lens of right eye- Primary Status post cataract extraction and insertion of intraocular lens of left eye documented in this encounter [facility] note* Diagnosis Acute midline low back pain without sciatica- Primary documented in this encounter [facility] noteNo assessment information [facility]WHol[facility] Work Phone: Evaluation note* Diagnosis Onset Date Resolution Status Laceration of left forearm a cute [facility] Work Phone: Evaluation note* Diagnosis Onset Date Resolution Status Acute confusion acute Acute kidney injury acute Altered level of consciousness acute History of alcohol abuse acu te [facility] Work Phone: Evaluation note* Diagnosis Heel pain, bilateral- Primary [facility] Diagnosis Calcaneal spur, right foot Calcaneal spur, left foot Pain in right foot Pain in soft tissues of limb Pain in left foot Pain in soft tissues of limb [facility]* Diagnosis Lumbar pain- Primary Lumbago DDD (degenerative disc disease), lumbar Degeneration of lumbar or lumbosacral intervertebral disc Lumbar radiculitis [facility]* Diagnosis Lumbar pain Lumbago documented in this encounter [facility] note* Diagnosis Calcaneal spur, right foot- Primary Calcaneal spur, left foot Pain in right foot Pain in soft tissues of limb Pain in left foot Pain in soft tissues of limb Calcaneal spur, right foot Calcaneal spur, left foot Pain in right foot Pain in soft tissues of limb Pain in left foot Pain in soft tissues of limb documented in this encounter [facility] note* Diagnosis Cellulitis of hand- Primary Cellulitis and abscess of hand, except fingers and thumb Infected wound Posttraumatic wound infection not elsewhere classified [facility] Diagnosis Mass of hand, right documented in this encounter [facility] note* Diagnosis Acute midline low back pain without sciatica documented in this encounter [facility] note* Diagnosis Onset Date Resolution Status Admit Date Incarcerated umbilical hernia acute August 27, 2024 1:27pm [facility] Work Phone: History and physical note Author Demetrius Hernández [facility] Note Date/Time August 27, 2024 1:02pm [facility] Medical Records Department [address] [place] [address] H&P Exam - Surgical 08/27/24 1259 MR#: [id number] Acct: [id number] Name: MIKE HATCH Rep #:[id number] : 1970 54 From: Demetrius irving MD PCP: [facility] St atus:[facility] ER Location: ED HPI - General HPI Narrative MIKE HATCH, is a 54 M who presents with painful umbilical hernia. The patientreports that he has had an umbilical hernia for years but something more popped out yesterday during a coughing fit and has been very painful ever since. Patient reports nausea as well as vomiting. He denies fevers or chills. [facility] Medical History Nicotine vapor product user Anxiety and depression Cannabis abuse Autism Schizophrenia Tobacco use History of alcohol abuse Alcohol abuse Cataract (lens) fragments in eye following cataract surgery, bilateral Home Medications ?Medication ?Instructions ?Recorded ?Last Taken ?Type brexpiprazole 2 mg tablet (Rexulti) 2 mg PO DAILY 07/12 Unknown History fluoxetine 40 mg capsule 80 cap PO DAILY 11/23/21 Unk nown History methylphenidate HCl 20 mg tablet 20 tab PO TID 2 Unknown History (Ritalin) cholecalciferol (vitamin D3) 50 50 mcg PO DAILY Unknown History mcg (2,000 unit) capsule (Vitamin D3) omega [id number]-fish oil 1,000 mg 1 cap PO BID 3 Unknown History (120 mg-180 mg) capsule trazodone 100 mg tablet 100 mg PO QHS PRN Sleep 09/21 06/15 Unknown History zolpidem 10 mg tablet 10 mg PO QPM 10/20/23 Unknow n History prazosin 1 mg capsule 3 mg PO QHS 01/01/24 Unknown History tizanidine 4 mg tablet 4 mg PO QHS 01/01/24 Unknown History Allergy/AdvReac Type Severity Reaction Status Date / Time No Known Allergies Allergy Verified 08/27/24 10:21 Family History Mother COPD (chronic obstructive pulmonary disease) Hypertension Diabetes Father Hypertension Alcohol abuse Surgical History History of shoulder surgery History of tonsillectomy and adenoidectomy H/O cataract removal with insertion of prosthetic lens Social History household members: friend(s) Smoking Status: Current some day smoker tobacco type: cigarettes and e- cigarettes Electronic Cigarette Use: with nicotine how long ago did patient quit smoking: Cigarette->vaping several yrs, uses heavy. alcohol intake: current alcohol intake frequency: 3 or more drinks per day details: Reports binging history. substance use type: marijuana Vital Signs Vital Signs Vital Signs: 08/27/24 10:21 08/27/24 11:20 Temperature 98.0 F Temperature Source Oral Pulse Rate 74 65 Respiratory Rate 24 H 18 Blood Pressure 138/75 H 135/73 H Blood Pressure Mean 96 93 Pulse Ox 99 94 Oxygen Delivery Method Room Air Room Air Weight Weight: 235 lb 14.314 oz Body Mass Index (BMI) 33.8 Physical Exam Const oriented x3 and no apparent distress Resp normal respiratory effort GI soft to palpation Palpation: tender Results Lab / Micro Data 08/27/24 10:30 08/27/24 10:30 Labs: Laboratory Results - last 24 hr 08/27/24 10:30: WBC 22.0 H, RBC 5.19, Hgb 15.3, Hct 43.7, MCV 84.2, MCH 29.5, MCHC 35.0, RDW Std Deviation 41.2, RDW Coeff of Danish 13.4, Plt Count 421, MPV 9.8, Immature Gran % (Auto) 0.500, Neut % (Auto) 74.4 H, Lymph % (Auto) 18.7 L, [place] % (Auto) 5.3, Eos % (Auto) 0.4, Baso % (Auto) 0.7, Absolute Neuts (auto) 16.4 H, Absolute Lymphs (auto) 4.11, Nucleated RBC % 0, Sodium 139, Potassium 3.4, Chloride 100, Carbon Dioxide 20.9 L, Anion Gap 18 H, BUN 6, Creatinine 0.96, Estim Creat Clear Calc 105.24, Est GFR (MDRD) Non-Af 93, BUN/Creatinine Ratio 6.1 L, Glucose 99, Calcium 9.6, Total Bilirubin 0.45, AST 29, ALT 14, Alkaline Phosphatase 129, Total Protein 7.5, Albumin 4.4, Globulin 3.2, Albumin/Globulin Ratio 1.4, Lipase 23 Imaging Radiology Impression Abdomen/Pelvis CT 08/27/24 11:27 IMPRESSION: 1. Small umbilical hernia containing fat and a short segment of minimally dilated small bowel. Given two transition points associated with the entry and exit from the hernia sac, early closed loop obstruction is possible. Mild upstream intraperitoneal small-bowel dilatation suggests associated early simple mechanical small-bowel obstruction. Recommend surgical consultation. 2. Trace subcutaneous inflammatory changes surrounding the hernia sac are nonspecific; correlate for the clinical diagnosis of bowel strangulation. 3. Mild bladder wall thickening versus underdistention. Correlate for cystitis. 4. Borderline mild splenomegaly. 5. Additional description as above. Reading Location: [facility] Assessment & Plan Assessment/Plan (1) Incarcerated umbilical hernia: PLAN: The patient has an incarcerated and possibly strangulated hernia at the umbilicus. It does contain a loop of small bowel on the CT scan which does havea caliber change. Patient is having nausea and vomiting. I discussed the surgery to evaluate the bowel and to repair the hernia. I discussed the possibility of having to open and resect small bowel if it appears ischemic. I discussed the risks of the procedure such as bleeding, infection, injury to underlying bowel, need for bowel resection. Patient understands the risks and is willing to proceed. I also discussed mesh placement in case the case is clean and mesh can be placed safely. Demetrius Hernández MD Pager: [facility] [address] [place] [address], [address] [place] [address] Office: 08/27/24 1302 <Electronically signed by Demetrius Hernández MD> Cosigner Signature (if applicable): CC: Dr. Demetrius Hernández MD; [facility]~ Signed [facility] Work Phone: Hospital Discharge instructions Additional Instructions The patient has a laceration to his left forearm that is into the fatty tissue but did not cause damage to the blood vessels tendons or muscles. The patient should have the sutures removed in 7 to 10 days and otherwise just needs to be cleaned with soap and water. He is medically cleared from emergency room standpoint for placement in [facility] Work Phone: Reason for referral (narrative)* Diagnostic Procedure Only (Urgent) - Pending Review Specialty Diagnoses / Procedures Referred By Abdiel frost Referred To Contact XR IMAGING Diagnoses Acute midline low back pain without sciatica Procedures XR LUMBAR GENERAL 3V AP/LAT/L5-S1 RADEX SPINE LUMBOSACRAL 2/3 VIEWS Janelle Prabhakar PA-C [address] [place] [address] Xr Imaging Referral ID Status Reason Start Date Expiration Date Visits Requested Visits Authorized [id number] Pending Review Auto-Generat ed Referral 09/18/2021 10/18/2022 1 1 [facility] for referral (narrative)* Diagnostic Procedure Only (Routine) - Closed Specialty Diagnoses / Procedures Referred By Contac t Referred To Contact XR IMAGING Diagnoses Mass of hand, right Procedures XR HAND GENERAL 3V PA/LAT/OBL RIGHT RADEX HAND MINIMUM 3 VIEWS Ramiro Bonilla MD [address] [place] [address] [place] [address] Referral ID Status Reason Start Date Expiration Date V isits Requested Visits Authorized [id number] Closed Auto-Generate d Referral 07/07/2021 08/06/2022 1 1 [facility] for referral (narrative)* Diagnostic Procedure Only (Urgent) - Closed Specialty Diagnoses / Procedures Referred By Contac t Referred To Contact XR IMAGING Diagnoses Acute midline low back pain without sciatica Procedures XR LUMBAR GENERAL 3V AP/LAT/L5-S1 RADEX SPINE LUMBOSACRAL 2/3 VIEWS Janelle Prabhakar PA-C [address] [place] [address] [place] [address] Referral ID Status Reason Start Date Expiration Date V isits Requested Visits Authorized [id number] Closed Auto-Generate d Referral 09/18/2021 10/18/2022 1 1 [facility] for referral (narrative)No reason for referral information availableWHolzer Hospital Work Phone[facility] N[facility]* Diagnostic Procedure Only (Routine) - Closed Specialty Diagnoses / Procedures Referred By Contac t Referred To Contact XR IMAGING Diagnoses Mass of hand, right Procedures XR HAND GENERAL 3V PA/LAT/OBL RIGHT RADEX HAND MINIMUM 3 VIEWS Ramiro Bonilla MD [address] [place] [address] [place] [address] Referral ID Status Reason Start Date Expiration Date V isits Requested Visits Authorized [id number] Closed Auto-Generate d Referral 07/07/2021 08/06/2022 1 [facility] Diagnostic Procedure Only (Urgent) - Closed Specialty Diagnoses / Procedures Referred By Contac t Referred To Contact XR IMAGING Diagnoses Acute midline low back pain without sciatica Procedures XR LUMBAR GENERAL 3V AP/LAT/L5-S1 RADEX SPINE LUMBOSACRAL 2/3 VIEWS Janelle Prabhakar PA-C [address] [facility] [place] [address] [place] [address] Referral ID Status Reason Start Date Expiration Date V isits Requested Visits Authorized [id number] Closed Auto-Generate d Referral 09/18/2021 10/18/2022 1 1 [facility] Summary Purpose Family History Relationship Condition Age at Onset Recorded Date/T rogelio mother Chronic obstructive pulmonary disease Unk nown Hypertension Unknown Diabetes mellitus Unknown father Hypertension Unknown Alcohol abuse Unknown Advance Directives Advance Directive Response Recorded Date/ Time Living Will No November 23, 2021 9:14pm Power of Customer Experience Intern No November 23 9:14pm Advance Directive Response Recorded Date/ Time Living Will No March 06, 2 022 7:43pm Power of Customer Experience Intern No March 06, 2022 7:43pm Advance Directive Response Recorded Date/ Time Living Will No September 23, 2022 9 :37pm Power of Customer Experience Intern No September 23, 2022 9:37pm Advance Directive Response Recorded Date/ Time Living Will No September 24, 2022 1 2:44am Power of Customer Experience Intern No September 24, 2022 12:44am Advance Directive Response Recorded Date/ Time Living Will No September 25, 2022 1 1:11am Power of Customer Experience Intern No September 25, 2022 11:11am Advance Directive Response Recorded Date/ Time Name of Medical Power of Customer Experience Intern PT UNSURE. October 02, 2022 5:28pm Name of Medical Power of Customer Experience Intern Dory October 06, 2022 8:22pm Living Will Yes October 06, 2022 8:22pm Power of Customer Experience Intern Yes October 06 8:22pm Advance Directive Response Recorded Date/ Time Living Will No April 19, 2 023 7:08pm Power of Customer Experience Intern No April 19, 2023 7:08pm Advance Directive Response Recorded Date/ Time Do you have a Healthcare Power of Customer Experience Intern? No August 27, 2024 10:24am Chief Complaint and Reason for Visit Chief Complaint EYE PROBLEM Chief Complaint EYE PROBLEM lac Chief Complaint ETOH Chief Complaint ETOH SI, laceration, ETOH Chief Complaint ETOH SI, laceration, ETOH si Reason for Visit Laceration of left f orearm Chief Complaint ETOH SI, laceration, ETOH si fall, loc ams mental ALT LOC Reason for Visit Laceration of left f orearm Chief Complaint ENCEPHALOPATHY SUSPE CTED ETOH WITHDRAWAL/POLYPHARM ENCEPHALOPATHY SUSPECTED ETOH WITHDRAWAL/POLYPHARM Reason for Visit Acute confusion Acute kidney injury Altered level of consciousness History of alcohol abuse Chief Complaint Admit Date ABD PAIN, HERNIA August 27, 2024 12:59p m INCARCERATED HERNIA August 27, 2024 1:27pm Reason for Visit Admit Date Incarcerated umbilical hernia August 27 025 1:27pm Chief Complaint Admit Date ABD PAIN, HERNIA August 27, 2024 12:59p m INCARCERATED HERNIA August 27, 2024 4:18pm INCARCERATED HERNIA August 28, 2024 6:46am INCARCERATED HERNIA August 29, 2024 9:32am Reason for Visit Admit Date Incarcerated umbilical hernia August 27 025 4:18pm Chief Complaint Admit Date ABD PAIN, HERNIA August 27, 2024 12:59p m INCARCERATED HERNIA August 27, 2024 4:18pm INCARCERATED HERNIA August 28, 2024 6:46am INCARCERATED HERNIA August 29, 2024 9:32am ANXIETY December 08, 2024 2: 02pm Reason for Referral Specialty Diagnoses / Procedures Referred By Abdiel frost Referred To Contact Physical Therapy Diagnoses Lumbar pain DDD (degenerative disc disease), lumbar Lumbar radiculitis Procedures [place] OFFICE/OUTPATIENT [facility] 60 MINUTES Celina Bliss MD [address] [place] [address] [address] [place] [address] Referral ID Status Reason Start Date Expiration Date Visits Requested Visits Authorized [id number] Authorized Specialty Services Required 08/03/2023 08/02/2024 2 2 Additional Source Comments (unrecognized sect ion and content) No Status Records FoundNo Status Records FoundNo Status Records FoundNo Status Records FoundNo Status Records Found INFORMATION SOURCE (unrecogn ized section and content) DATE CREATED AUTHOR 07/01/2021 [facility] DATE CREATED AUTHOR AUTHOR'S ORGANIZ ATION 07/29/2022 [facility] DATE CREATED AUTHOR AUTHOR'S ORGANIZ ATION 08/09/2023 [facility] DATE CREATED AUTHOR AUTHOR'S ORGANIZ ATION 10/18/2023 [facility] DATE CREATED AUTHOR AUTHOR'S ORGANIZ ATION 09/17/2024 [facility] Source Comments (unrecognize d section and content) In the event this informatio n is protected by the Federal Confidentiality of Alcohol and Drug Abuse Patient Records regulations: The Federal rules restrict any use of the information to criminally investigate or prosecute any alcohol or drug abuse patient.[facility] Inc[facility] the event this information is protected by the Federal Confidentiality of Alcohol and Drug Abuse Patient Records regulations: The Federal rules restrict any use of the information to criminally investigate or prosecute any alcohol or drug abuse patient.[facility] IncIn the event this information is protected by the Federal Confidentiality of Alcohol and Drug Abuse Patient Records regulations: The Federal rules restrict any use of the information to criminally investigate or prosecute any alcohol or drug abuse patient.[facility] IncIn the event this information is protected by the Federal Confidentiality of Alcohol and Drug Abuse Patient Records regulations: The Federal rules restrict any use of the information to criminally investigate or prosecute any alcohol or drug abuse patient.[facility] IncIn the event this information is protected by the Federal Confidentiality of Alcohol and Drug Abuse Patient Records regulations: The Federal rules restrict any use of the information to criminally investigate or prosecute any alcohol or drug abuse patient.[facility] IncIn the event this information is protected by the Federal Confidentiality of Alcohol and Drug Abuse Patient Records regulations: The Federal rules restrict any use of the information to criminally investigate or prosecute any alcohol or drug abuse patient.[facility] IncIn the event this information is protected by the Federal Confidentiality of Alcohol and Drug Abuse Patient Records regulations: The Federal rules restrict any use of the information to criminally investigate or prosecute any alcohol or drug abuse patient.[facility] IncIn the event this information is protected by the Federal Confidentiality of Alcohol and Drug Abuse Patient Records regulations: The Federal rules restrict any use of the information to criminally investigate or prosecute any alcohol or drug abuse patient.[facility] Reason for Visit (unrecogniz ed section and content) Reason Onset Date Comments Refill Request 07/18/2021 Reason Comments Blurred Vision Left Eye Patient is here to sign consents for traditional cataract surgery left eye scheduled on 08/11/21 Difficulty Reading Left Eye Glare Left eye Reason Comments Post-op Cataract OD 06/09/2021 Post-op Cataract OS 08/11/2021 Reason Comments Low Back Pain x2 days, no known in jury Reason Comments Results Reason Comments Foot Pain Pt. Endorses 8 day h x of bilateral heel pain without relief from OTC tx. Pt. Denies any recent injury or wounds to the area. Reason Comments Back Pain Specialty Diagnoses / Procedures Referred By Abdiel frost Referred To Contact Orthopedic Surgery Diagnoses Sciatica, unspecified side Low back pain, unspecified Procedures [place] OFFICE/OUTPATIENT NEW MODERATE MDM 45 MINUTES Ankush Ann, [employer] OPERATOR [address] [place] [address] Anna Marie Echeverria NP 1 [facility] [address] [place] [address] Referral ID Status Reason Start Date Expiration Date Visits Re quested Visits Authorized [id number] Closed 07/30/2023 07/29/2024 1 1 Reason Comments infected stitch left hand Stitches place d at [facility] 6 days ago-very sore Care Teams (unrecognized sec tion and content) 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 Relationship Specialty Start Date End Date Alesha Davenport MD [address] [place] [address] PCP - General Internal Medicine 07/13/21 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 Relationship Specialty Start Date End Date Alesha Davenport MD [address] [facility] [place] [address] PCP - General Internal Medicine 07/13/21 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 Relationship Specialty Start Date End Date Alesha Davenport MD [address] [facility] [place] [address] PCP - General Internal Medicine 07/13/21 Team Status: Active Member Role Status [facility] Primary Care Provider A ctive Team Status: Inactive Member Role Status [facility] Primary Care Provider A ctive Dr. Franklyn Callahan DO Emergency Provider Active Team Status: Inactive Member Role Status [facility] Primary Care Provider A ctive Dr. Franklyn Callahan DO Attending Provider Active Team Status: Inactive Member Role Status [facility] Primary Care Provider A ctive Dr. Damien Stanton MD Emergency Provider Active Team Status: Inactive Member Role Status [facility] Primary Care Provider A ctive Dr. Franklyn Callahan DO Attending Provider, Emergency Pr ovider Active Team Status: Inactive Member Role Status [facility] Primary Care Provider A ctive Dr. Damien Stanton MD Attending Provider, Emergency Pr ovider Active Team Status: Inactive Member Role Status [facility] Primary Care Provider A ctive Dr. Larry Welch DO Attending Provider, Emergency P rovider Active Team Status: Inactive Member Role Status [facility] Primary Care Provider A ctive Patrick Ricardo MD Attending Provider, Emergency Provid er Active Team Status: Inactive Member Role Status [facility] Primary Care Provider A ctjose Ricardo MD Emergency Provider Active Team Status: Active Member Role Status [facility] Primary Care Provider A ctive Dr. Camilo Verdugo MD Emergency Provider Active Dr. Helen Villa MD Admit Provider, Other Provider Active Dr. Jeanette Tripathi DO Attending Provider, Other Provide r Active Team Status: Inactive Member Role Status Dates [facility] Primary Care Provider A ctive Dr. Camilo Verdugo MD Emergency Provider Active Dr. Helen Villa MD Admit Provider, Other Provider Active Dr. Jeanette Tripathi DO Attending Provider Active 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 Relationship Specialty Start Date End Date Ankush Ann [employer] OPERATOR [address] [place] [address] PCP - General Nurse Practitioner 08/08/23 Team Status: Active Member Role Status Dates [facility] Primary Care Provider A ctive Start: August 27, 2024 Dr. Isis De Jesus DO Emergency Provider Active Start: August 27, 2024 Dr. Demetrius Hernández MD Attending Provider Active Start: August 27, 2024 Team Status: Inactive Member Role Status Dates [facility] Primary Care Provider A ctive Start: August 27, 2024 End: August 29, 2024 Dr. Isis De Jesus DO Emergency Provider Active Start: August 27, 2024 End: August 29, 2024 Dr. Demetrius Hernández MD Admit Provider Active Start: August 27, 2024 End: August 29, 2024 Dr. Demetrius Hernández MD Attending Provider Active Start: August 27, 2024 End: August 29, 2024 Team Status: Active Member Role Status Dates [facility] Primary Care Provider A ctive Start: August 28, 2024 Dr. Isis De Jesus DO Emergency Provider Active Start: August 28, 2024 Dr. Demetrius Hernández MD Admit Provider Active Start: August 28, 2024 Dr. Demetrius Hernández MD Attending Provider Active Start: August 28, 2024 Dr. Demetrius Hernández MD Other Provider Active Start: August 28, 2024 Team Status: Active Member Role Status Dates [facility] Primary Care Provider A ctive Start: August 29, 2024 Dr. Isis De Jesus DO Emergency Provider Active Start: August 29, 2024 Dr. Demetrius Hernández MD Admit Provider Active Start: August 29, 2024 Dr. Demetrius Hernández MD Attending Provider Active Start: August 29, 2024 Dr. Demetrius Hernández MD Other Provider Active Start: August 29, 2024 Team Status: Active Member Role/Relationship Status Dates [facility] Primary Care Provider A ctive Team Status: Active Member Role/Relationship Status Dates [facility] Primary Care Provider A ctive Start: August 27, 2024 Dr. Isis De Jesus DO Emergency Provider Active Start: August 27, 2024 Dr. Demetrius Hernández MD Attending Provider Active Start: August 27, 2024 Team Status: Inactive Member Role/Relationship Status Dates [facility] Primary Care Provider A ctive Start: August 27, 2024 End: August 29, 2024 Dr. Isis De Jesus DO Emergency Provider Active Start: August 27, 2024 End: August 29, 2024 Dr. Demetrius Hernández MD Admit Provider Active Start: August 27, 2024 End: August 29, 2024 Dr. Demetrius Hernández MD Attending Provider Active Start: August 27, 2024 End: August 29, 2024 Team Status: Active Member Role/Relationship Status Dates [facility] Primary Care Provider A ctive Start: August 28, 2024 Dr. Isis De Jesus DO Emergency Provider Active Start: August 28, 2024 Dr. Demetrius Hernández MD Admit Provider Active Start: August 28, 2024 Dr. Demetrius Hernández MD Attending Provider Active Start: August 28, 2024 Dr. Demetrius Hernández MD Other Provider Active Start: August 28, 2024 Team Status: Active Member Role/Relationship Status Dates [facility] Primary Care Provider A ctive Start: August 29, 2024 Dr. Isis De Jesus DO Emergency Provider Active Start: August 29, 2024 Dr. Demetrius Hernández MD Admit Provider Active Start: August 29, 2024 Dr. Demetrius Hernández MD Attending Provider Active Start: August 29, 2024 Dr. Demetrius Hernández MD Other Provider Active Start: August 29, 2024 Team Status: Inactive Member Role/Relationship Status Dates [facility] Primary Care Provider A ctive Start: December 08, 2024 End: December 08, 2024 Ed Physician Provider Emergency Provider Active Start: December 08, 2024 End: December 08, 2024 Goals (unrecognized section and content) Goals may be documented in a n alternate sectionGoals may be documented in an alternate sectionGoals may be documented in an alternate sectionGoals may be documented in an alternate sectionGoals may be documented in an alternate sectionGoals may be documented in an alternate sectionGoals may be documented in an alternate sectionGoals may be documented in an alternate sectionGoals may be documented in an alternate sectionGoals may be documented in an alternate sectionGoals may be documented in an alternate section FOR RECORDS PERTAINING TO PATIENTS WHO ARE [...] BE BASED ON THE PRIMARY CLINICAL RECORDS. [employer] provides no warranty or guarantee of the accuracy or completeness of information in this document.
== END 2024-12-08 15:40 | disposition left against medical advice (07) ==
DX: Z53.21 Procedure and treatment not carried out due to patient leaving prior to being seen by health care provider (principal)

== ENCOUNTER → 2025-02-19 | Outpatient (CLI) | payer MEDICAID, SELFPAY ==
[2025-02-19 18:11] LABS: Hematocrit 38.7 % (40-54); Hemoglobin 12.7 g/dL (13.0-16.5); Immature Granulocytes Count 0.030 X10^3/uL (0.0-0.0); Mean Corp Hgb Conc 32.8 g/dL (32-36); Mean Corpuscular Volume 89.8 fL (80-94); Mean Platelet Vol. 9.8 fl (6.2-12.0); NRBC Flagged by Analyzer 0 % (0-5); Platelet Count 310 K/mm3 (150-450); RBC Distribution Width CV 14.3 % (11.6-14.6); RBC Distribution Width SD 47.2 fl (35.1-43.9); Red Blood Count 4.31 M/mm3 (4.6-6.2); White Blood Count 8.3 K/mm3 (4.4-11.0)
[2025-02-19 18:58] LABS: AST(SGOT) 23 U/L (<=37); Alanine Aminotransfer ALT/SGPT 21 U/L (<=46); Albumin, Serum 4.0 g/dL (3.5-5.0); Alkaline Phosphatase 77 U/L (40-129); Anion Gap 8 (5-15); BUN 8 mg/dL (4-19); BUN/Creat Ratio 8.2 RATIO (10-20); Calcium,Total 8.8 mg/dL (7.6-11.0); Carbon Dioxide 27.9 mmol/L (21.0-32.0); Chloride 105 mmol/L (98-108); Globulin 2.4 g/dL (2.2-4.2); Glucose 95 mg/dL (70-99); Potassium 4.5 mmol/L (3.3-5.1)
== END | disposition home or self-care (01) ==
LOC: VSLAB 14:13
PROVIDERS: Visit Provider Family Medicine
DX: F33.2 Major depressive disorder, recurrent severe without psychotic features (principal)
CPT/HCPCS: 36415; 80053; 84443; 85025

== ENCOUNTER 2025-04-09 19:48 | Emergency (ER) | payer MEDICAID, SELFPAY ==
[2025-04-09] VITALS (9 sets, daily range): BP systolic 69–135; BP diastolic 48–71; PULSE 57–72; RESP 14–18; TEMP 36.4–36.5; O2SAT 95–100; BMI 33.6
--- NOTE | 2025-04-09 20:05 | ED.RN ---
iv fluids wide open from ems,
--- NOTE | 2025-04-09 20:44 | EKG12_ITS ---
Test Reason : DYSRHYTHMIA Blood Pressure : */* mmHG Vent. Rate : 59 BPM Atrial Rate : 59 BPM P-R Int : 154 ms QRS Dur : 100 ms QT Int : 486 ms P-R-T Axes : 9 48 32 degrees QTcB Int : 481 ms Sinus bradycardia Nonspecific ST and T wave abnormality QTcB >= 480 msec Abnormal ECG Confirmed by Turner Carpio ([id number]), international editorial producer DIANE ALVARADO ([id number]) on 04/10/2025 9:57:34 AM Referred By: Confirmed By: uTrner Carpio
[2025-04-09] MEDS: 0.9% Normal Saline (1000mL) 1,000 ML 999 ML IV ×2 (20:58→22:01)
[2025-04-09 21:03] LABS: Hematocrit 36.9 % (40-54); Hemoglobin 12.3 g/dL (13.0-16.5); Immature Granulocytes Count 0.020 X10^3/uL (0.0-0.0); Mean Corp Hgb Conc 33.3 g/dL (32-36); Mean Corpuscular Volume 88.1 fL (80-94); Mean Platelet Vol. 9.7 fl (6.2-12.0); NRBC Flagged by Analyzer 0 % (0-5); Platelet Count 212 K/mm3 (150-450); RBC Distribution Width CV 13.2 % (11.6-14.6); RBC Distribution Width SD 42.2 fl (35.1-43.9); Red Blood Count 4.19 M/mm3 (4.6-6.2); White Blood Count 6.8 K/mm3 (4.4-11.0)
--- OUTSIDE RECORDS SUMMARY | 2025-04-09 21:06 | XMS RPT_ITS | CCD ---
Author Organization [facility] Inform ion Partnership [facility] Care Team Providers Care Collar Sewer Name Role Phone Alesha Davenport MD Primary Care Provider Unavailable Primary Care Provider [facility], Dr. Gustavo Moreira [facility]ending [facility], Dr. Gustavo Moreira Referring [facility] UNKNOWN, PCP Primary Care Unavailable Brenda, Dr. Gustavo Moreira Admitting [facility] Care Pro vider Dr. Camilo Verdugo Emergency Provider Dr. Helen Villa Admit Provider Dr. Helen Villa Other Provider Dr. Jeanette Tripathi Attending Provider Dr. Jeanette Tripathi Other Provider Unavailable Primary Care Provider [facility] Attending Unavailable CELINA BLISS Referring Unavailable KATOLIVA LOPEZ Attending Unavailable SETH, ANKUSH Primary Care Unavailable SETH, ANKUSH Referring Unavailable CELINA BLISS Attending Unavailable SOLEDAD CUEVAS Attending Unavailable SOLEDAD CUEVAS Referring Unavailable MANISHA, INOCENCIA Referring Unavailable Seth PENCILLER - OPERATIONS COORDINATOR, Ankush Primary Care Provider Unavailable Primary Care Provider [facility] Primary Care Pro vider Dr. Isis De Jesus DO Emergency Provider Betty MCLAUGHLIN, Dr. Romo Attending Provider Betty MCLAUGHLIN, Dr. Romo Admit Provider Btety MCLAUGHLIN, Dr. Romo Other Provider Provider, Ed Physician Emergency Provider [facility] Unavailable Demetrius Hernández Attending Unavailable Demetrius Hernández Admitting [facility], [facility] Unavailable Demetrius Hernández Consulting Unavailable Demetrius Hernández Attending Unavailable [facility] Primary [facility] Unavailable Demetrius Hernández Admitting Unavailable Demetrius Hernández Attending [facility], [facility] Unavailable Larry Arce Attending [facility] Unavailable Provider, Ed Physician Attending Unavailab le Medications Current Medications Medication Drug Class(es) Dates [...] capsule (3 sources) Anti-epileptic Agent Start: 07-26-19 take 1 capsule by mouth every eight hours gabapentin (Neurontin) 100 MG capsule Take 100 mg by mouth in the morning and 100 mg at noon and 100 mg before bedtime. 0 07/26/2023 Active hydrOXYzine hydrochloride 50 mg oral tablet (8 sources) Antihistamine Start: 07-31-19 take 1 tablet by mouth once hydrOXYzine [...] 0 06/26/2023 Active omega-3 acid ethyl esters (retirement) 1000 mg oral capsule (5 sources) Start: 2022 [place] 1-Xqu-Nrk-Fish Oil 1,000 mg (120 mg-180 mg) capsule Active 1 NMA PO TWICE A DAY October 02, 2022 12:00am Start: 10-02-2022 take 1 capsule by [facility] twice daily [place] 0-Rpr-Mch-Fish Oil Active 1 CAP PO TWICE A [...] Comment on above: Take 2 tablets by [facility] once daily for 5 days. propylene glycol [...] Problem Classification Problem Date Documented Date Episodic/Chronic Acute and unspecified renal failure (5 sources) [...] [night terrors]] Onset: 08-11-2021 Chronic Mood disorders (7 sources) Depressive disorder; Translations: [Depression] Onset: 02-25-2025 09-25-2022 Chronic Mood disorders (1 source) Mood disorders; Translations: [Depression, unspecified] Onset: 08-11-2021 Open wounds of extremities (15 sources) Laceration of left forearm; Translations: [Laceration without foreign body of left forearm, initial encounter] 09-24-2022 Episodic Open wounds of head; neck; [...] Translations: [Other alteration of consciousness] 04-20-2023 Episodic Residual codes; unclassified (1 source) Procedure and treatment not carried out due to patient leaving prior to being seen by health care provider; Translations: [Procedure and treatment not carried out due to patient leaving prior to being seen by health care provider] Onset: 12-12-2024 Episodic Screening and history of mental health [...] Translations: [Syncope and collapse] 10-02-2022 Episodic Unclassified (1 source) Low back pain, unspecified; Translations: [Low back pain, unspecified] Onset: 08-03-2023 Past or Other Problems Problem Classification Problem Date Documented Date Episodic/Chronic Abdominal hernia (8 sources) Irreducible umbilical hernia; Translations: [Umbilical hernia with obstruction, without gangrene] Onset: 09-11-2024 08-27-2024 Episodic Attention-deficit, conduct, and disruptive behavior disorders (3 [...] extraction status, left eye] Onset: 08-12-2021 Episodic Unclassified (1 source) Low back pain, unspecified; Translations: [Low back pain, unspecified] Onset: 08-03-2023 Results Test Name Value Interpretation Reference Range Facility CBC W/Diff, Automatedon 10-3 Absolute Lymph 2.48 X10 3/uL Normal 0.83-4.51 [facility] Comment on above: Performed By: #### L 100.0100, L500.2500 #### [facility] [address] [place], [address] Absolute Neut 4.7 X10 3/uL Normal 2.0-7.7 [facility] Comment on above: Performed By: #### L 100.0100, L500.2500 #### [facility] [address] [place], [address] Basophils/100 WBC (Bld) 1.6 % High 0-1 [facility] Comment on above: Performed By: #### L 100.0100, L500.2500 #### [facility] [address] [place], [address] Eosinophils/100 WBC (Bld) 4.0 % Normal 0-5 [facility] Comment on above: Performed By: #### L 100.0100, L500.2500 #### [facility] [address] [place], [address] Erythrocyte distribution width (RBC) [Ratio] 14.3 % Normal 11.6-14.6 [facility] Comment on above: Performed By: #### L 100.0100, L500.2500 #### [facility] [address] [place], [address] Hematocrit (Bld) [Volume fraction] 38.7 % Low 40-54 [facility] Comment on above: Performed By: #### L 100.0100, L500.2500 #### [facility] [address] [place], [address] Hemoglobin (Bld) [Mass/Vol] 12.7 g/dL Low 13.0-16.5 [facility] Comment on above: Performed By: #### L 100.0100, L500.2500 #### [facility] [address] [place], [address] IG% 0.400 Normal 0.0-0.9 [facility] Comment on above: Result Comment: IG% - Immature Granulocytes (promyelocytes, myelocytes and metamyelocytes) > 1% indicates that a LEFT SHIFT is Present. Performed By: #### L 100.0100, L500.2500 #### [facility] [address] [place], [address] Lymphocytes/100 WBC (Bld) 30.0 % Normal 19-41 [facility] Comment on above: Performed By: #### L 100.0100, L500.2500 #### [facility] [address] [place], [address] MCH (RBC) [Entitic mass] 29.5 pg Normal 27.0-32.0 [facility] Comment on above: Performed By: #### L 100.0100, L500.2500 #### [facility] [address] [place], [address] MCHC (RBC) [Mass/Vol] 32.8 g/dL Normal 32-36 [facility] Comment on above: Performed By: #### L 100.0100, L500.2500 #### [facility] [address] [place], [address] MCV (RBC) [Entitic vol] 89.8 fL Normal 80-94 [facility] Comment on above: Performed By: #### L 100.0100, L500.2500 #### [facility] [address] [place], [address] Monocytes/100 WBC (Bld) 7.5 % Normal 0-10 [facility] Comment on above: Performed By: #### L 100.0100, L500.2500 #### [facility] [address] [place], [address] Neutrophils/100 WBC (Bld) 56.5 % Normal 47-70 [facility] Comment on above: Performed By: #### L 100.0100, L500.2500 #### [facility] [address] [place], [address] Nucleated RBC (Bld) [#/Vol] 0 10*3/uL Normal 0-5 [facility] Comment on above: Performed By: #### L 100.0100, L500.2500 #### [facility] [address] [place], [address] Platelet mean volume (Bld) [Entitic vol] 9.8 fL Normal 6.2-12.0 [facility] Comment on above: Performed By: #### L 100.0100, L500.2500 #### [facility] [address] [place], [address] Platelets (Bld) [#/Vol] 310 10*3/uL Normal 150-450 [facility] Comment on above: Performed By: #### L 100.0100, L500.2500 #### [facility] [address] [place], [address] RBC (Bld) [#/Vol] 4.31 10*6/uL Low 4.6-6.2 [facility] Comment on above: Performed By: #### L 100.0100, L500.2500 #### [facility] [address] [place], [address] RDW SD 47.2 fl High 35.1-43.9 [facility] Comment on above: Performed By: #### L 100.0100, L500.2500 #### [facility] [address] [place], [address] WBC (Bld) [#/Vol] 8.3 10*3/uL Normal 4.4-11.0 [facility] Comment on above: Performed By: #### L 100.0100, L500.2500 #### [facility] [address] [place], [address] Comprehensive Metabolic Prof ilon 02-19-2025 Albumin [Mass/Vol] 4.0 g/dL Normal 3.5-5.0 [facility] Comment on above: Performed By: #### L 100.0100, L500.2500 #### [facility] [address] [place], [address] Albumin/Globulin [Mass ratio] 1.6 {ratio} Normal 0.9-2.4 [facility] Comment on above: Performed By: #### L 100.0100, L500.2500 #### [facility] [address] [place], [address] ALK PHOS 77 U/L Normal 40-129 [facility] Comment on above: Performed By: #### L 100.0100, L500.2500 #### [facility] [address] [place], [address] ALT [Catalytic activity/Vol] 21 U/L Normal <=46 [facility] Comment on above: Performed By: #### L 100.0100, L500.2500 #### [facility] [address] [place], [address] AST [Catalytic activity/Vol] 23 U/L Normal <=37 [facility] Comment on above: Performed By: #### L 100.0100, L500.2500 #### [facility] [address] [place], [address] Bilirubin [Mass/Vol] 0.25 mg/dL Normal 0.00-1.30 [facility] Comment on above: Performed By: #### L 100.0100, L500.2500 #### [facility] [address] [place], [address] BUN/CRE 8.2 RATIO Low 10-20 [facility] Comment on above: Performed By: #### L 100.0100, L500.2500 #### [facility] [address] [place], [address] Calcium [Mass/Vol] 8.8 mg/dL Normal 7.6-11.0 [facility] Comment on above: Performed By: #### L 100.0100, L500.2500 #### [facility] [address] [place], [address] Chloride [Moles/Vol] 105 mmol/L Normal 98-108 [facility] Comment on above: Performed By: #### L 100.0100, L500.2500 #### [facility] [address] [place], [address] CO2 [Moles/Vol] 27.9 mmol/L Normal 21.0-32.0 [facility] Comment on above: Performed By: #### L 100.0100, L500.2500 #### [facility] [address] [place], [address] Creatinine [Mass/Vol] 0.94 mg/dL Normal 0.70-1.20 [facility] Comment on above: Performed By: #### L 100.0100, L500.2500 #### [facility] [address] [place], [address] GAP 8 Normal 5-15 [facility] Comment on above: Performed By: #### L 100.0100, L500.2500 #### [facility] [address] [place], [address] GFR/1.73 sq M.predicted among non-blacks MDRD (S/P/Bld) [Vol rate/Area] 95 mL/min/{1.73_m2} Normal >60 [facility] Comment on above: Result Comment: mL/m in/1.73m2 CKD-EPI Creatinine Equation (2020) Performed By: #### L 100.0100, L500.2500 #### [facility] [address] [place], [address] Globulin (S) [Mass/Vol] 2.4 g/dL Normal 2.2-4.2 [facility] Comment on above: Performed By: #### L 100.0100, L500.2500 #### [facility] [address] [place], [address] Glucose [Mass/Vol] 95 mg/dL Normal 70-99 [facility] Comment on above: Performed By: #### L 100.0100, L500.2500 #### [facility] [address] [place], [address] Potassium [Moles/Vol] 4.5 mmol/L Normal 3.3-5.1 [facility] Comment on above: Performed By: #### L 100.0100, L500.2500 #### [facility] [address] [place], [address] Sodium [Moles/Vol] 141 mmol/L Normal 133-145 [facility] Comment on above: Performed By: #### L 100.0100, L500.2500 #### [facility] [address] [place], [address] T PROT 6.4 g/dL Normal 5.9-8.4 [facility] Comment on above: Performed By: #### L 100.0100, L500.2500 #### [facility] [address] [place], [address] Urea nitrogen [Mass/Vol] 8 mg/dL Normal 4-19 [facility] Comment on above: Performed By: #### L 100.0100, L500.2500 #### [facility] [address] [place], [address] Thyroid Stim Hormone (TSH)on 02-19-2025 TSH 2.960 uIU/mL Normal 0.300-4.200 [facility] Comment on above: Performed By: #### L 100.0100, L500.2500 #### [facility] [address] [place], [address] Absolute lymphocyte countOrd ered By: Demetrius Hernández on 08-29-2024 Lymphocytes Auto (Unsp spec) [#/Vol] 2.91 10*3/uL 0.83-4.51 [facility] Absolute neutrophil countOrd ered By: Demetrius Hernández on 08-29-2024 Neutrophils (Bld) [#/Vol] 7.9 10*3/uL High 2.0-7.7 [facility] Anion gap in Serum or Plasma Ordered By: Demetrius Hernández on 08-29-2024 Anion gap [Moles/Vol] 9 mmol/L 5-15 [facility] Automated lymphocyte count a s percentage of total leukocytesOrdered By: Demetrius Hernández on 08-29-2024 Lymphocytes/100 WBC Auto (Unsp spec) 24.6 % 19-41 [facility] BUN/creatinine ratioOrdered By: Demetrius Hernández on 08-29-2024 Urea nitrogen/Creatinine [Mass ratio] 13.1 mg/mg 10-20 [facility] Basic Metabolic Profile (BMP )on 08-29-2024 BUN/CRE 13.1 RATIO Normal -20 [facility] Comment on above: Performed By: #### L 100.0100, L500.2500 #### [facility] [address] [place], [address] Calcium [Mass/Vol] 8.5 mg/dL Normal 7.6-11.0 [facility] Comment on above: Performed By: #### L 100.0100, L500.2500 #### [facility] [address] [place], [address] Chloride [Moles/Vol] 107 mmol/L Normal 98-108 [facility] Comment on above: Performed By: #### L 100.0100, L500.2500 #### [facility] [address] [place], [address] CO2 [Moles/Vol] 24.3 mmol/L Normal 21.0-32.0 [facility] Comment on above: Performed By: #### L 100.0100, L500.2500 #### [facility] [address] [place], [address] Creatinine [Mass/Vol] 0.71 mg/dL Normal 0.70-1.20 [facility] Comment on above: Performed By: #### L 100.0100, L500.2500 #### [facility] [address] [place], [address] ECRCL 142.30 ml/min Normal 50-250 [facility] Comment on above: Performed By: #### L 100.0100, L500.2500 #### [facility] [address] [place], [address] GAP 9 Normal 5-15 [facility] Comment on above: Performed By: #### L 100.0100, L500.2500 #### [facility] [address] [place], [address] GFR/1.73 sq M.predicted among non-blacks MDRD (S/P/Bld) [Vol rate/Area] 108 mL/min/{1.73_m2} Normal >60 [facility] Comment on above: Result Comment: mL/m in/1.73m2 CKD-EPI Creatinine Equation (2020) Performed By: #### L 100.0100, L500.2500 #### [facility] [address] [place], [address] Glucose [Mass/Vol] 89 mg/dL Normal 70-99 [facility] Comment on above: Performed By: #### L 100.0100, L500.2500 #### [facility] [address] [place], [address] Potassium [Moles/Vol] 3.4 mmol/L Normal 3.3-5.1 [facility] Comment on above: Performed By: #### L 100.0100, L500.2500 #### [facility] [address] [place], [address] Sodium [Moles/Vol] 140 mmol/L Normal 133-145 [facility] Comment on above: Performed By: #### L 100.0100, L500.2500 #### [facility] [address] [place], [address] Urea nitrogen [Mass/Vol] 9 mg/dL Normal 4-19 [facility] Comment on above: Performed By: #### L 100.0100, L500.2500 #### [facility] [address] [place], [address] Basophil percentageOrdered B y: Demetrius Hernández on 08-29-2024 Basophils/100 WBC (Bld) 0.6 % 0-1 [facility] CBC W/Diff, Automatedon Absolute Lymph 2.91 X10 3/uL Normal 0.83-4.51 [facility] Comment on above: Performed By: #### L 100.0100, L500.2500 #### [facility] [address] [place], [address] Absolute Neut 7.9 X10 3/uL High 2.0-7.7 [facility] Comment on above: Performed By: #### L 100.0100, L500.2500 #### [facility] [address] [place], [address] Basophils/100 WBC (Bld) 0.6 % Normal 0-1 [facility] Comment on above: Performed By: #### L 100.0100, L500.2500 #### [facility] [address] [place], [address] Eosinophils/100 WBC (Bld) 0.9 % Normal 0-5 [facility] Comment on above: Performed By: #### L 100.0100, L500.2500 #### [facility] [address] [place], [address] Erythrocyte distribution width (RBC) [Ratio] 13.6 % Normal 11.6-14.6 [facility] Comment on above: Performed By: #### L 100.0100, L500.2500 #### [facility] [address] [place], [address] Hematocrit (Bld) [Volume fraction] 35.5 % Low 40-54 [facility] Comment on above: Performed By: #### L 100.0100, L500.2500 #### [facility] [address] [place], [address] Hemoglobin (Bld) [Mass/Vol] 11.8 g/dL Low 13.0-16.5 [facility] Comment on above: Performed By: #### L 100.0100, L500.2500 #### [facility] [address] [place], [address] IG% 0.300 Normal 0.0-0.9 [facility] Comment on above: Result Comment: IG% - Immature Granulocytes (promyelocytes, myelocytes and metamyelocytes) > 1% indicates that a LEFT SHIFT is Present. Performed By: #### L 100.0100, L500.2500 #### [facility] [address] [place], [address] Lymphocytes/100 WBC (Bld) 24.6 % Normal 19-41 [facility] Comment on above: Performed By: #### L 100.0100, L500.2500 #### [facility] [address] [place], [address] MCH (RBC) [Entitic mass] 29.6 pg Normal 27.0-32.0 [facility] Comment on above: Performed By: #### L 100.0100, L500.2500 #### [facility] [address] [place], [address] MCHC (RBC) [Mass/Vol] 33.2 g/dL Normal 32-36 [facility] Comment on above: Performed By: #### L 100.0100, L500.2500 #### [facility] [address] [place], [address] MCV (RBC) [Entitic vol] 89.0 fL Normal 80-94 [facility] Comment on above: Performed By: #### L 100.0100, L500.2500 #### [facility] [address] [place], [address] Monocytes/100 WBC (Bld) 6.6 % Normal 0-10 [facility] Comment on above: Performed By: #### L 100.0100, L500.2500 #### [facility] [address] [place], [address] Neutrophils/100 WBC (Bld) 67.0 % Normal 47-70 [facility] Comment on above: Performed By: #### L 100.0100, L500.2500 #### [facility] [address] [place], [address] Nucleated RBC (Bld) [#/Vol] 0 10*3/uL Normal 0-5 [facility] Comment on above: Performed By: #### L 100.0100, L500.2500 #### [facility] [address] [place], [address] Platelet mean volume (Bld) [Entitic vol] 9.7 fL Normal 6.2-12.0 [facility] Comment on above: Performed By: #### L 100.0100, L500.2500 #### [facility] [address] [place], [address] Platelets (Bld) [#/Vol] 274 10*3/uL Normal 150-450 [facility] Comment on above: Performed By: #### L 100.0100, L500.2500 #### [facility] [address] [place], [address] RBC (Bld) [#/Vol] 3.99 10*6/uL Low 4.6-6.2 [facility] Comment on above: Performed By: #### L 100.0100, L500.2500 #### [facility] [address] [place], [address] RDW SD 44.5 fl High 35.1-43.9 [facility] Comment on above: Performed By: #### L 100.0100, L500.2500 #### [facility] [address] [place], [address] WBC (Bld) [#/Vol] 11.8 10*3/uL High 4.4-11.0 [facility] Comment on above: Performed By: #### L 100.0100, L500.2500 #### [facility] [address] [place], [address] Carbon dioxide, total [Moles /volume] in Central venous bloodOrdered By: Demetrius Hernández on 08-29-2024 CO2 [Moles/Vol] 24.3 mmol/L 21.0-32.0 [facility] Chloride assayOrdered By: Gloria Hernández on 08-29-2024 Chloride [Moles/Vol] 107 mmol/L 98-108 [facility] Eosinophil percentageOrdered By: Demetrius Hernández on 08-29-2024 Eosinophils/100 WBC (Bld) 0.9 % 0-5 [facility] Erythrocyte distribution wid th ratioOrdered By: Demetrius Hernández on 08-29-2024 Erythrocyte distribution width (RBC) [Ratio] 13.6 % 11.6-14.6 [facility] Erythrocyte distribution wid th standard deviationOrdered By: Demetrius Hernández on 08-29-2024 Erythrocyte distribution width (RBC) [Ratio] 44.5 fl High 35.1-43.9 [facility] Glomerular filtration rate ( GFR) estimation/1.73 sq m using serum, plasma, or whole bOrdered By: Demetrius Hernández on 08-29-2024 GFR/1.73 sq M.predicted among non-blacks MDRD (S/P/Bld) [Vol rate/Area] 108 mL/min/{1.73_m2} >60 [facility] Comment on above: mL/min/1.73m2 CKD-EP I Creatinine Equation (2020) Hematocrit Auto (Bld) [Volum e fraction]Ordered By: Demetrius Hernández on 08-29-2024 Hematocrit (Bld) [Volume fraction] 35.5 % Low 40-54 [facility] Hemoglobin measurementOrdere d By: Demetrius Hernández on 08-29-2024 Hemoglobin (Bld) [Mass/Vol] 11.8 g/dL Low 13.0-16.5 [facility] Immature granulocytes/100 WB C Auto (Bld)Ordered By: Demetrius Hernández on 08-29-2024 Immature granulocytes/100 WBC (Bld) 0.300 % 0.0-0.9 [facility] Comment on above: IG% - Immature Granu locytes (promyelocytes, myelocytes and metamyelocytes) > 1% indicates that a LEFT SHIFT is Present. MCV (mean corpuscular volume ) determinationOrdered By: Demetrius Hernández on 08-29-2024 MCV (RBC) [Entitic vol] 89.0 fL 80-94 [facility] Mean corpuscular hemoglobin (MCH) determinationOrdered By: Demetrius Hernández on 08-29-2024 MCH (RBC) [Entitic mass] 29.6 pg 27.0-32.0 [facility] Mean corpuscular hemoglobin concentration (MCHC) determinationOrdered By: Demetrius Hernández on 08-29-2024 MCHC (RBC) [Mass/Vol] 33.2 g/dL 32-36 [facility] Mean platelet volume determi nationOrdered By: Demetrius Hernández on 08-29-2024 Platelet mean volume (Bld) [Entitic vol] 9.7 fL 6.2-12.0 [facility] Monocyte percentageOrdered B y: Demetrius Hernández on 08-29-2024 Monocytes/100 WBC (Bld) 6.6 % 0-10 [facility] Neutrophil percentageOrdered By: Demetrius Hernández on 08-29-2024 Neutrophils/100 WBC (Bld) 67.0 % 47-70 [facility] Nucleated red blood cell per centageOrdered By: Demetrius Hernández on 08-29-2024 Nucleated RBC/100 WBC (Bld) [Ratio] 0 % 0-5 [facility] Platelet countOrdered By: Gloria Hernández on 08-29-2024 Platelets (Bld) [#/Vol] 274 10*3/uL 150-450 [facility] Potassium measurement (mass/ volume)Ordered By: Demetrius Hernández on 08-29-2024 Potassium (Unsp spec) [Mass/Vol] 3.4 mmol/L 3.3-5.1 [facility] RBC Auto (Bld) [#/Vol]Ordere d By: Demetrius Hernández on 08-29-2024 RBC (Bld) [#/Vol] 3.99 10*6/uL Low 4.6-6.2 [facility] Serum creatinine measurement (mass/volume)Ordered By: Demetrius Hernández on 08-29-2024 Creatinine [Mass/Vol] 0.71 mg/dL 0.70-1.20 [facility] Serum glucose measurement (m ass/volume)Ordered By: Demetrius Hernández on 08-29-2024 Glucose [Mass/Vol] 89 mg/dL 70-99 [facility] Serum or plasma calcium chet urement (mass/volume)Ordered By: Demetrius Hernández on 08-29-2024 Calcium [Mass/Vol] 8.5 mg/dL 7.6-11.0 [facility] Serum or plasma urea nitroge n measurement (mass/volume)Ordered By: Demetrius Hernández on 08-29-2024 Urea nitrogen [Mass/Vol] 9 mg/dL 4-19 [facility] Sodium levelOrdered By: Grant Hernández on 08-29-2024 Sodium [Moles/Vol] 140 mmol/L 133-145 [facility] White blood cell (WBC) count Ordered By: Demetrius Hernández on 08-29-2024 WBC (Bld) [#/Vol] 11.8 10*3/uL High 4.4-11.0 [facility] Basic Metabolic Profile (BMP )on 08-28-2024 BUN/CRE 11.0 RATIO Normal 10-20 [facility] Comment on above: Performed By: #### L 100.0100, L500.2500 #### [facility] [address] [place], [address] Calcium [Mass/Vol] 8.6 mg/dL Normal 7.6-11.0 [facility] Comment on above: Performed By: #### L 100.0100, L500.2500 #### [facility] [address] [place], [address] Chloride [Moles/Vol] 106 mmol/L Normal 98-108 [facility] Comment on above: Performed By: #### L 100.0100, L500.2500 #### [facility] [address] [place], [address] CO2 [Moles/Vol] 22.4 mmol/L Normal 21.0-32.0 [facility] Comment on above: Performed By: #### L 100.0100, L500.2500 #### [facility] [address] [place], [address] Creatinine [Mass/Vol] 0.71 mg/dL Normal 0.70-1.20 [facility] Comment on above: Performed By: #### L 100.0100, L500.2500 #### [facility] [address] [place], [address] ECRCL 142.30 ml/min Normal 50-250 [facility] Comment on above: Performed By: #### L 100.0100, L500.2500 #### [facility] [address] [place], [address] GAP 11 Normal 5-15 [facility] Comment on above: Performed By: #### L 100.0100, L500.2500 #### [facility] [address] [place], [address] GFR/1.73 sq M.predicted among non-blacks MDRD (S/P/Bld) [Vol rate/Area] 108 mL/min/{1.73_m2} Normal >60 [facility] Comment on above: Result Comment: mL/m in/1.73m2 CKD-EPI Creatinine Equation (2020) Performed By: #### L 100.0100, L500.2500 #### [facility] [address] [place], [address] Glucose [Mass/Vol] 148 mg/dL High 70-99 [facility] Comment on above: Performed By: #### L 100.0100, L500.2500 #### [facility] [address] [place], [address] Potassium [Moles/Vol] 4.0 mmol/L Normal 3.3-5.1 [facility] Comment on above: Performed By: #### L 100.0100, L500.2500 #### [facility] [address] [place], [address] Sodium [Moles/Vol] 139 mmol/L Normal 133-145 [facility] Comment on above: Performed By: #### L 100.0100, L500.2500 #### [facility] [address] [place], [address] Urea nitrogen [Mass/Vol] 8 mg/dL Normal 4-19 [facility] Comment on above: Performed By: #### L 100.0100, L500.2500 #### [facility] [address] [place], [address] CBC W/Diff, Automatedon 05-0 Absolute Lymph 1.38 X10 3/uL Normal 0.83-4.51 [facility] Comment on above: Performed By: #### L 100.0100, L500.2500 #### [facility] [address] [place], [address] Absolute Neut 16.8 X10 3/uL High 2.0-7.7 [facility] Comment on above: Performed By: #### L 100.0100, L500.2500 #### [facility] [address] [place], [address] Basophils/100 WBC (Bld) 0.2 % Normal 0-1 [facility] Comment on above: Performed By: #### L 100.0100, L500.2500 #### [facility] [address] [place], [address] Eosinophils/100 WBC (Bld) 0.0 % Normal 0-5 [facility] Comment on above: Performed By: #### L 100.0100, L500.2500 #### [facility] [address] [place], [address] Erythrocyte distribution width (RBC) [Ratio] 13.7 % Normal 11.6-14.6 [facility] Comment on above: Performed By: #### L 100.0100, L500.2500 #### [facility] [address] [place], [address] Hematocrit (Bld) [Volume fraction] 35.9 % Low 40-54 [facility] Comment on above: Performed By: #### L 100.0100, L500.2500 #### [facility] [address] [place], [address] Hemoglobin (Bld) [Mass/Vol] 12.4 g/dL Low 13.0-16.5 [facility] Comment on above: Performed By: #### L 100.0100, L500.2500 #### [facility] [address] [place], [address] IG% 0.600 Normal 0.0-0.9 [facility] Comment on above: Result Comment: IG% - Immature Granulocytes (promyelocytes, myelocytes and metamyelocytes) > 1% indicates that a LEFT SHIFT is Present. Performed By: #### L 100.0100, L500.2500 #### [facility] [address] [place], [address] Lymphocytes/100 WBC (Bld) 7.2 % Low 19-41 [facility] Comment on above: Performed By: #### L 100.0100, L500.2500 #### [facility] [address] [place], [address] MCH (RBC) [Entitic mass] 29.8 pg Normal 27.0-32.0 [facility] Comment on above: Performed By: #### L 100.0100, L500.2500 #### [facility] [address] [place], [address] MCHC (RBC) [Mass/Vol] 34.5 g/dL Normal 32-36 [facility] Comment on above: Performed By: #### L 100.0100, L500.2500 #### [facility] [address] [place], [address] MCV (RBC) [Entitic vol] 86.3 fL Normal 80-94 [facility] Comment on above: Performed By: #### L 100.0100, L500.2500 #### [facility] [address] [place], [address] Monocytes/100 WBC (Bld) 4.3 % Normal 0-10 [facility] Comment on above: Performed By: #### L 100.0100, L500.2500 #### [facility] [address] [place], [address] Neutrophils/100 WBC (Bld) 87.7 % High 47-70 [facility] Comment on above: Performed By: #### L 100.0100, L500.2500 #### [facility] [address] [place], [address] Nucleated RBC (Bld) [#/Vol] 0 10*3/uL Normal 0-5 [facility] Comment on above: Performed By: #### L 100.0100, L500.2500 #### [facility] [address] [place], [address] Platelet mean volume (Bld) [Entitic vol] 9.4 fL Normal 6.2-12.0 [facility] Comment on above: Performed By: #### L 100.0100, L500.2500 #### [facility] [address] [place], [address] Platelets (Bld) [#/Vol] 289 10*3/uL Normal 150-450 [facility] Comment on above: Performed By: #### L 100.0100, L500.2500 #### [facility] [address] [place], [address] RBC (Bld) [#/Vol] 4.16 10*6/uL Low 4.6-6.2 [facility] Comment on above: Performed By: #### L 100.0100, L500.2500 #### [facility] [address] [place], [address] RDW SD 42.5 fl Normal 35.1-43.9 [facility] Comment on above: Performed By: #### L 100.0100, L500.2500 #### [facility] [address] [place], [address] WBC (Bld) [#/Vol] 19.2 10*3/uL High 4.4-11.0 [facility] Comment on above: Performed By: #### L 100.0100, L500.2500 #### [facility] [address] [place], [address] Abdomen/Pelvis W IV Cont ONL Yon 08-27-2024 Abdomen/Pelvis W IV Cont ONLY [facility] Imaging Services [address] [place] [address] Abdomen/Pelvis W IV Cont ONLY MR#: [id number] Acct: [id number] Name: MIKE HATCH Rep #: [id number] : 1970 M 54 From: Jazlyn Michael MD PCP: [facility] Status: REG ER Study: Abdomen/Pelvis W IV Cont ONLY Date of Exam: Exam# [id number] Ordering Dr: Isis De Jesus DO PROCEDURE: [...] 5. Additional description as above. Reading Location: [id number] CC: Dr. Isis De Jesus, ; [facility] Senior Publications Specialist: Signed Normal [facility] Absolute lymphocyte countOrd ered By: Isis De Jesus on 08-27-2024 Lymphocytes Auto (Unsp spec) [#/Vol] 4.11 10*3/uL 0.83-4.51 [facility] Absolute neutrophil countOrd ered By: Isis De Jesus on 08-27-2024 Neutrophils (Bld) [#/Vol] 16.4 10*3/uL High 2.0-7.7 [facility] Anion gap in Serum or Plasma Ordered By: Isis De Jesus on 08-27-2024 Anion gap [Moles/Vol] 18 mmol/L High 5-15 [facility] Automated lymphocyte count a s percentage of total leukocytesOrdered By: Isis De Jesus on 08-27-2024 Lymphocytes/100 WBC Auto (Unsp spec) 18.7 % Low 19-41 [facility] BUN/creatinine ratioOrdered By: Isis De Jesus on 08-27-2024 Urea nitrogen/Creatinine [Mass ratio] 6.1 mg/mg Low 10-20 [facility] Basophil percentageOrdered B y: Isis De Jesus on 08-27-2024 Basophils/100 WBC (Bld) 0.7 % 0-1 [facility] Bedside Glucoseon 08-27-2024 FINGERSTICK GLU 130 mg/dL High 74-106 [facility] Comment on above: Result Comment: SAMANTHA COTTER OF PATIENT CARE PER NURSING PROTOCOL Performed By: #### L 501.080 #### [facility] [address] [place], [address] Bilirubin, totalOrdered By: Isis De Jesus on 08-27-2024 Bilirubin [Mass/Vol] 0.45 mg/dL 0.00-1.30 [facility] CBC W/Diff, Automatedon Absolute Lymph 4.11 X10 3/uL Normal 0.83-4.51 [facility] Comment on above: Performed By: #### L 501.2450, L503.6005, L100.0100, L500.4050 #### [facility] [address] [place], [address] Absolute Neut 16.4 X10 3/uL High 2.0-7.7 [facility] Comment on above: Performed By: #### L 501.2450, L503.6005, L100.0100, L500.4050 #### [facility] [address] [place], [address] Basophils/100 WBC (Bld) 0.7 % Normal 0-1 [facility] Comment on above: Performed By: #### L 501.2450, L503.6005, L100.0100, L500.4050 #### [facility] [address] [place], [address] Eosinophils/100 WBC (Bld) 0.4 % Normal 0-5 [facility] Comment on above: Performed By: #### L 501.2450, L503.6005, L100.0100, L500.4050 #### [facility] [address] [place], [address] Erythrocyte distribution width (RBC) [Ratio] 13.4 % Normal 11.6-14.6 [facility] Comment on above: Performed By: #### L 501.2450, L503.6005, L100.0100, L500.4050 #### [facility] [address] [place], [address] Hematocrit (Bld) [Volume fraction] 43.7 % Normal 40-54 [facility] Comment on above: Performed By: #### L 501.2450, L503.6005, L100.0100, L500.4050 #### [facility] [address] [place], [address] Hemoglobin (Bld) [Mass/Vol] 15.3 g/dL Normal 13.0-16.5 [facility] Comment on above: Performed By: #### L 501.2450, L503.6005, L100.0100, L500.4050 #### [facility] [address] [place], [address] IG% 0.500 Normal 0.0-0.9 [facility] Comment on above: Result Comment: IG% - Immature Granulocytes (promyelocytes, myelocytes and metamyelocytes) > 1% indicates that a LEFT SHIFT is Present. Performed By: #### L 501.2450, L503.6005, L100.0100, L500.4050 #### [facility] [address] [place], [address] Lymphocytes/100 WBC (Bld) 18.7 % Low 19-41 [facility] Comment on above: Performed By: #### L 501.2450, L503.6005, L100.0100, L500.4050 #### [facility] [address] [place], [address] MCH (RBC) [Entitic mass] 29.5 pg Normal 27.0-32.0 [facility] Comment on above: Performed By: #### L 501.2450, L503.6005, L100.0100, L500.4050 #### [facility] [address] [place], [address] MCHC (RBC) [Mass/Vol] 35.0 g/dL Normal 32-36 [facility] Comment on above: Performed By: #### L 501.2450, L503.6005, L100.0100, L500.4050 #### [facility] [address] [place], [address] MCV (RBC) [Entitic vol] 84.2 fL Normal 80-94 [facility] Comment on above: Performed By: #### L 501.2450, L503.6005, L100.0100, L500.4050 #### [facility] [address] [place], [address] Monocytes/100 WBC (Bld) 5.3 % Normal 0-10 [facility] Comment on above: Performed By: #### L 501.2450, L503.6005, L100.0100, L500.4050 #### [facility] [address] [place], [address] Neutrophils/100 WBC (Bld) 74.4 % High 47-70 [facility] Comment on above: Performed By: #### L 501.2450, L503.6005, L100.0100, L500.4050 #### [facility] [address] [place], [address] Nucleated RBC (Bld) [#/Vol] 0 10*3/uL Normal 0-5 [facility] Comment on above: Performed By: #### L 501.2450, L503.6005, L100.0100, L500.4050 #### [facility] [address] [place], [address] Platelet mean volume (Bld) [Entitic vol] 9.8 fL Normal 6.2-12.0 [facility] Comment on above: Performed By: #### L 501.2450, L503.6005, L100.0100, L500.4050 #### [facility] [address] [place], [address] Platelets (Bld) [#/Vol] 421 10*3/uL Normal 150-450 [facility] Comment on above: Performed By: #### L 501.2450, L503.6005, L100.0100, L500.4050 #### [facility] [address] [place], [address] RBC (Bld) [#/Vol] 5.19 10*6/uL Normal 4.6-6.2 [facility] Comment on above: Performed By: #### L 501.2450, L503.6005, L100.0100, L500.4050 #### [facility] [address] [place], [address] RDW SD 41.2 fl Normal 35.1-43.9 [facility] Comment on above: Performed By: #### L 501.2450, L503.6005, L100.0100, L500.4050 #### [facility] [address] [place], [address] WBC (Bld) [#/Vol] 22.0 10*3/uL High 4.4-11.0 [facility] Comment on above: Performed By: #### L 501.2450, L503.6005, L100.0100, L500.4050 #### [facility] [address] [place], [address] Carbon dioxide, total [Moles /volume] in Central venous bloodOrdered By: Isis De Jesus on 08-27-2024 CO2 [Moles/Vol] 20.9 mmol/L Low 21.0-32.0 [facility] Chloride assayOrdered By: Benedict De Jesus on 08-27-2024 Chloride [Moles/Vol] 100 mmol/L 98-108 [facility] Comprehensive Metabolic Prof ilon 08-27-2024 Albumin [Mass/Vol] 4.4 g/dL Normal 3.5-5.0 [facility] Comment on above: Performed By: #### L 501.2450, L503.6005, L100.0100, L500.4050 #### [facility] [address] [place], [address] Albumin/Globulin [Mass ratio] 1.4 {ratio} Normal 0.9-2.4 [facility] Comment on above: Performed By: #### L 501.2450, L503.6005, L100.0100, L500.4050 #### [facility] [address] [place], [address] ALK PHOS 129 U/L Normal 40-129 [facility] Comment on above: Performed By: #### L 501.2450, L503.6005, L100.0100, L500.4050 #### [facility] [address] [place], [address] ALT [Catalytic activity/Vol] 14 U/L Normal <=46 [facility] Comment on above: Performed By: #### L 501.2450, L503.6005, L100.0100, L500.4050 #### [facility] [address] [place], [address] AST [Catalytic activity/Vol] 29 U/L Normal <=37 [facility] Comment on above: Performed By: #### L 501.2450, L503.6005, L100.0100, L500.4050 #### [facility] [address] [place], [address] Bilirubin [Mass/Vol] 0.45 mg/dL Normal 0.00-1.30 [facility] Comment on above: Performed By: #### L 501.2450, L503.6005, L100.0100, L500.4050 #### [facility] [address] [place], [address] BUN/CRE 6.1 RATIO Low 10-20 [facility] Comment on above: Performed By: #### L 501.2450, L503.6005, L100.0100, L500.4050 #### [facility] [address] [place], [address] Calcium [Mass/Vol] 9.6 mg/dL Normal 7.6-11.0 [facility] Comment on above: Performed By: #### L 501.2450, L503.6005, L100.0100, L500.4050 #### [facility] [address] [place], [address] Chloride [Moles/Vol] 100 mmol/L Normal 98-108 [facility] Comment on above: Performed By: #### L 501.2450, L503.6005, L100.0100, L500.4050 #### [facility] [address] [place], [address] CO2 [Moles/Vol] 20.9 mmol/L Low 21.0-32.0 [facility] Comment on above: Performed By: #### L 501.2450, L503.6005, L100.0100, L500.4050 #### [facility] [address] [place], [address] Creatinine [Mass/Vol] 0.96 mg/dL Normal 0.70-1.20 [facility] Comment on above: Performed By: #### L 501.2450, L503.6005, L100.0100, L500.4050 #### [facility] [address] [place], [address] ECRCL 105.24 ml/min Normal 50-250 [facility] Comment on above: Performed By: #### L 501.2450, L503.6005, L100.0100, L500.4050 #### [facility] [address] [place], [address] GAP 18 High 5-15 [facility] Comment on above: Performed By: #### L 501.2450, L503.6005, L100.0100, L500.4050 #### [facility] [address] [place], [address] GFR/1.73 sq M.predicted among non-blacks MDRD (S/P/Bld) [Vol rate/Area] 93 mL/min/{1.73_m2} Normal >60 [facility] Comment on above: Result Comment: mL/m in/1.73m2 CKD-EPI Creatinine Equation (2020) Performed By: #### L 501.2450, L503.6005, L100.0100, L500.4050 #### [facility] [address] [place], [address] Globulin (S) [Mass/Vol] 3.2 g/dL Normal 2.2-4.2 [facility] Comment on above: Performed By: #### L 501.2450, L503.6005, L100.0100, L500.4050 #### [facility] [address] [place], [address] Glucose [Mass/Vol] 99 mg/dL Normal 70-99 [facility] Comment on above: Performed By: #### L 501.2450, L503.6005, L100.0100, L500.4050 #### [facility] [address] [place], [address] Potassium [Moles/Vol] 3.4 mmol/L Normal 3.3-5.1 [facility] Comment on above: Performed By: #### L 501.2450, L503.6005, L100.0100, L500.4050 #### [facility] [address] [place], [address] Sodium [Moles/Vol] 139 mmol/L Normal 133-145 [facility] Comment on above: Performed By: #### L 501.2450, L503.6005, L100.0100, L500.4050 #### [facility] [address] [place], [address] T PROT 7.5 g/dL Normal 5.9-8.4 [facility] Comment on above: Performed By: #### L 501.2450, L503.6005, L100.0100, L500.4050 #### [facility] [address] [place], [address] Urea nitrogen [Mass/Vol] 6 mg/dL Normal 4-19 [facility] Comment on above: Performed By: #### L 501.2450, L503.6005, L100.0100, L500.4050 #### [facility] [address] [place], [address] Emergency Department Summary on 08-27-2024 Emergency Department Summary [facility] Medical Records Department [address] [place] [address] Emergency Department Summary 08/27/24 MR#: [id number] Acct: [id number] Name: MIKE HATCH Rep #: [id number] : 1970 54 From: sIis De Jesus DO PCP: [facility] [place] [facility] [place] [address] HPI HPI - GI History of Present [...] this time. Denies any abdominal surgical history. [facility] Medical History Nicotine vapor product user Anxiety [...] mcg (2,000 unit) capsule (Vitamin D3) omega 9-sms-lvc-fish oil 1,000 mg 1 cap PO BID [...] GI Narrat (more content not included)... Normal [facility] Eosinophil percentageOrdered By: Isis De Jesus on 08-27-2024 Eosinophils/100 WBC (Bld) 0.4 % 0-5 [facility] Erythrocyte distribution wid th ratioOrdered By: Isis De Jesus on 08-27-2024 Erythrocyte distribution width (RBC) [Ratio] 13.4 % 11.6-14.6 [facility] Erythrocyte distribution wid th standard deviationOrdered By: Isis De Jesus on 08-27-2024 Erythrocyte distribution width (RBC) [Ratio] 41.2 fl 35.1-43.9 [facility] Glomerular filtration rate ( GFR) estimation/1.73 sq m using serum, plasma, or whole bOrdered By: Isis De Jesus on 08-27-2024 GFR/1.73 sq M.predicted among non-blacks MDRD (S/P/Bld) [Vol rate/Area] 93 mL/min/{1.73_m2} >60 [facility] Comment on above: mL/min/1.73m2 CKD-EP I Creatinine Equation (2020) [facility] deOrdered By: Demetrius Hernández on 08-27-2024 Glucose [Mass/Vol] 130 mg/dL High 74-106 [facility] Comment on above: MANAGEMENT OF PATIEN T CARE PER NURSING PROTOCOL H AND P Exam - Surgicalon H&P Exam - Surgical [facility] Medical Records Department [address] [place] [address] H P Exam - Surgical 08/27/24 1259 MR#: [id number] Acct: [id number] Name: MIKE HATCH Rep #: [id number] : 1970 54 From: Demetrius Hernández MD PCP: [facility] Status:REG ER Location: ED HPI - General HPI Narrative MIKE HATCH, is a 54 M who presents with painful umbilical hernia. The patient reports that he has had an umbilical hernia for years but something more popped out yesterday during a coughing fit and has been very painful ever since. Patient reports nausea as well as vomiting. He denies fevers or chills. [facility] Medical History Nicotine vapor product user [...] mcg (2,000 unit) capsule (Vitamin D3) omega 4-yvk-zld-fish oil 1,000 mg 1 cap PO BID [...] 74.4 H, Lymph % (Auto) 18.7 L, Morrow % (Auto) 5.3, Eos % (Auto) 0.4, [...] 4. B (more content not included)... Normal [facility] Hematocrit Auto (Bld) [Volum e fraction]Ordered By: Isis De Jesus on 08-27-2024 Hematocrit (Bld) [Volume fraction] 43.7 % 40-54 [facility] Hemoglobin measurementOrdere d By: Isis De Jesus on 08-27-2024 Hemoglobin (Bld) [Mass/Vol] 15.3 g/dL 13.0-16.5 [facility] Immature granulocytes/100 WB C Auto (Bld)Ordered By: Isis De Jesus on 08-27-2024 Immature granulocytes/100 WBC (Bld) 0.500 % 0.0-0.9 [facility] Comment on above: IG% - Immature Granu locytes (promyelocytes, myelocytes and metamyelocytes) > 1% indicates that a LEFT SHIFT is Present. Laboratory - Chemistry and C hemistry - challengeOrdered By: Isis De Jesus on 08-27-2024 AST [Catalytic activity/Vol] 29 U/L <38 [facility] Lactic Acidon 08-27-2024 Lactate [Moles/Vol] 1.4 mmol/L Normal 0.0-2.0 [facility] Comment on above: Performed By: #### L 503.6005 #### [facility] [address] [place], [place], [id number] Lactate [Moles/Vol] 3.9 mmol/L Invalid Interpretation Code 0.0-2.0 [facility] Comment on above: Order Comment: Y Result Comment: Crit ical Result(s) Called to Yun ALVARAOD (ER): by Ozzie:??Results read back by same. Performed By: #### L 501.2450, L503.6005, L100.0100, L500.4050 #### [facility] [address] [place], [place], [address] Lactic acid measurementOrder ed By: Isis De Jesus on 08-27-2024 Lactate [Moles/Vol] 1.4 mmol/L 0.0-2.0 [facility] Lactate [Moles/Vol] 3.9 mmol/L High 0.0-2.0 [facility] Comment on above: Critical Result(s) C alled to Yun ALVARADO (ER): by Ozzie: Results read back by same. Lipaseon 08-27-2024 Lipase [Catalytic activity/Vol] 23 U/L Normal 13-75 [facility] Comment on above: Result Comment: Irwin hernandez note: LIPASE revised reference range effective 22. New Lipase methodology. Expected to produce lower values than the previous assay method. NEW Reference Range: 13 - 75 U/L Performed By: #### L 501.2450, L503.6005, L100.0100, L500.4050 #### [facility] [address] [place], [address] Lipase measurementOrdered By : Isis De Jesus on 08-27-2024 Lipase [Catalytic activity/Vol] 23 U/L 13-75 [facility] Comment on above: Please note:LIPASE r evised reference range effective 22. New Lipase methodology. Expected to produce lower values than the previous assay method. NEW Reference Range: 13 - 75 U/L MCV (mean corpuscular volume ) determinationOrdered By: Isis De Jesus on 08-27-2024 MCV (RBC) [Entitic vol] 84.2 fL 80-94 [facility] MR/POSTOP.ANEon 08-27-2024 MR/POSTOP.[facility] Medical Records Department [address] [place] [address] Anesthesia Postop Eval I 08/27/241638 MR#: [id number] Acct: [id number] Name: MIKE HATCH Rep #: [id number] : 1970 54 From: Alva Walker PCP: [facility] Status:REG SDC Y Race: C Location: [place] [address] Anesthesia: Postop Eval I Current Vital Signs Temperature: 97 F Pulse Rate: 65 Blood Pressure: 128/57 Respiratory Rate: 20 Pulse Ox: 94 Assessment Airway patent: Yes Spontaneous unlabored respirations: Yes nausea: No Vomiting: No Anesthesia Complication: No Fluid Hydration Crystalloid volume administer (ml): 1,200 Total IV fluid infused: 1,200 Progress Note Anesthesia document: Postop Eval 1 completed: Yes 08/27/241638 Date Alva Lewis Signature: Date CC: Signed Normal [facility] MR/DUGFKSPN2cg 08-27-2024 MR/POSTOPAN2 [facility] Medical Records Department [address] [place] [address] Anesthesia Postop Eval II 08/27/24 1700 MR#: [id number] Acct: [id number] Name: MIKE HATCH Rep #: [id number] : 1970 54 From: Ashutosh Wilkerson MD PCP: [facility] Status:REG SDC Y Race: C Location: [place] [address] Anesthesia Postop Eval I Sum Postop Eval Completion status Anesthesia document: Postop Eval 1 completed: Yes Anesthesia Postop Eval I Summary Anesthesia Postop Eval I Summary: Anesthesia Postop Eval I: Assessment Summary Airway patent Yes 08/27/24 16:39 REVIEW CONSULTANT.CSIR Spontaneous unlabored Yes 08/27/24 16:39 REVIEW CONSULTANT.CSIR respirations Mental status nausea No 08/27/24 16:39 REVIEW CONSULTANT.CSIR Vomiting No 08/27/24 16:39 REVIEW CONSULTANT.CSIR Anesthesia Postop Eval I: Fluid Summary Crystalloid volume administer 1,200 08/27/24 16:39 REVIEW CONSULTANT.CSIR (ml) Colloids volume administered ( ml) Blood Product volume administered (ml) Total IV fluid infused 1,200 08/27/24 16:39 REVIEW CONSULTANT.CSIR Anesthesia Postop Eval I: Summary Notes Anesthesia Complication No 08/27/24 16:39 REVIEW CONSULTANT.CSIR Anesthesia Complication Comment: Post-operative progress note Anesthesia: Postop Eval II Evaluation Mental status: Awake Pain Level: 0 nausea: No Vomiting: No Complications Anesthesia Complication: No 08/27/24 1700 Date Ashutosh Wilkerson MD Cosigner Signature: Date CC: Signed Normal [facility] Mean corpuscular hemoglobin (MCH) determinationOrdered By: Isis De Jesus on 08-27-2024 MCH (RBC) [Entitic mass] 29.5 pg 27.0-32.0 [facility] Mean corpuscular hemoglobin concentration (MCHC) determinationOrdered By: Isis De Jesus on 08-27-2024 MCHC (RBC) [Mass/Vol] 35.0 g/dL 32-36 [facility] Mean platelet volume determi nationOrdered By: Isis De Jesus on 08-27-2024 Platelet mean volume (Bld) [Entitic vol] 9.8 fL 6.2-12.0 [facility] Monocyte percentageOrdered B y: Isis De Jesus on 08-27-2024 Monocytes/100 WBC (Bld) 5.3 % 0-10 [facility] Neutrophil percentageOrdered By: Isis De Jesus on 08-27-2024 Neutrophils/100 WBC (Bld) 74.4 % High 47-70 [facility] Nucleated red blood cell per centageOrdered By: Isis De Jesus on 08-27-2024 Nucleated RBC/100 WBC (Bld) [Ratio] 0 % 0-5 [facility] Operative Reporton Operative Report [facility] Medical Records Department [address] [place] [address] Operative Report 08/27/24 1611 MR#: [id number] Acct: [id number] Name: TERRANCEMIKE LESLIE Rep #: [id number] : 1970 54 From: Demetrius Hernández MD [facility] Status[facility] Location: [place] [address] Operative Report (Standard) Operative Information Date of Procedure: 08/27/24 Pre-Operative Diagnosis: Incarcerated umbilical hernia Post-Operative Diagnosis: 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 The staple [...] Next the fascia was closed using interrupted [id number] 0 PDS sutures. The subcutaneous tissue was [...] (if applicable): CC: Dr. Demetrius Hernández MD; [facility] Signed Normal [facility] Platelet countOrdered By: Benedict De Jesus on 08-27-2024 Platelets (Bld) [#/Vol] 421 10*3/uL 150-450 [facility] Potassium measurement (mass/ volume)Ordered By: Isis De Jesus on 08-27-2024 Potassium (Unsp spec) [Mass/Vol] 3.4 mmol/L 3.3-5.1 [facility] RBC Auto (Bld) [#/Vol]Ordere d By: Isis De Jesus on 08-27-2024 RBC (Bld) [#/Vol] 5.19 10*6/uL 4.6-6.2 [facility] Serum creatinine measurement (mass/volume)Ordered By: Isis De Jesus on 08-27-2024 Creatinine [Mass/Vol] 0.96 mg/dL 0.70-1.20 [facility] Serum globulin measurementOr dered By: Isis De Jesus on 08-27-2024 Globulin (S) [Mass/Vol] 3.2 g/dL 2.2-4.2 [facility] Serum glucose measurement (m ass/volume)Ordered By: Isis De Jesus on 08-27-2024 Glucose [Mass/Vol] 99 mg/dL 70-99 [facility] Serum or plasma alanine figueredo otransferase (ALT) measurementOrdered By: Isis De Jesus on 08-27-2024 ALT [Catalytic activity/Vol] 14 U/L <47 [facility] Serum or plasma albumin chet urement (mass/volume)Ordered By: Isis De Jesus on 08-27-2024 Albumin [Mass/Vol] 4.4 g/dL 3.5-5.0 [facility] Serum or plasma albumin/glob ulin mass ratioOrdered By: Isis De Jesus on 08-27-2024 Albumin/Globulin [Mass ratio] 1.4 {ratio} 0.9-2.4 [facility] Serum or plasma alkaline scott sphatase measurementOrdered By: Isis De Jesus on 08-27-2024 ALP [Catalytic activity/Vol] 129 U/L 40-129 [facility] Serum or plasma calcium chet urement (mass/volume)Ordered By: Isis De Jesus on 08-27-2024 Calcium [Mass/Vol] 9.6 mg/dL 7.6-11.0 [facility] Serum or plasma urea nitroge n measurement (mass/volume)Ordered By: Isis De Jesus on 08-27-2024 Urea nitrogen [Mass/Vol] 6 mg/dL 4-19 [facility] Sodium levelOrdered By: Kurt De Jesus on 08-27-2024 Sodium [Moles/Vol] 139 mmol/L 133-145 [facility] Surgery Specimen Level IIon 08-27-2024 Surgery Specimen Level II Patient Age/Sex Location Account Attending Physician MIKE HATCH 54/M MS3 [id number] Dr. Demetrius Hernández MD Specimen: [id number] Received: 08/27/24 Status: NICK Anderson Num: [id number] Spec Type: COLON Subm Dr: Dr. Demetrius [...] an average wall thickness of 0.6 cm. Bag Sorter sections: A1. First stapled margin, en faceA2. [...] surfaces. No markedly hemorrhagic areas are identified. Bag Sorter sections are submitted in B1. Patient Age/Sex Location Account Attending Physician MIKE HATCH/M MS3 [id number] Dr. Demetrius Hernández MD [facility] 08-28-2024 CPT:52158,25194 Patient Age/Sex Location Account Attending Physician MIKE HATCH 54/M MS3 [id number] Dr. Demetrius Hernández MD Signed (signature on file) Dr. Virginia Moyer MD 09/01/24 1610 Normal [facility] Comment on above: Performed By: #### L 100.0100, L500.2500 #### [facility] [address] [place], [address] Total proteinOrdered By: Jane dean Liza on 08-27-2024 Protein [Mass/Vol] 7.5 g/dL 5.9-8.4 [facility] White blood cell (WBC) count Ordered By: Isis Dangelomax on 08-27-2024 WBC (Bld) [#/Vol] 22.0 10*3/uL High 4.4-11.0 [facility] CNOVon 10-16-2023 CNOV Office Visit (UCWSTR ) MIKE HATCH ([id number]) 1970 M Date Time Provider Department 10/16/23 2:00 PM [facility] During your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 Lymphocytes Auto (Unsp spec) [#/Vol] 3.23 10*3/uL 0.83-4.51 [facility] Basophil percentageOrdered B y: Dr. Welch on 10-01-2022 Basophils/100 WBC (Bld) 0.9 % 0-1 [facility] Bilirubin [Mass/Vol] 0.20 mg/dL 0.20-1.00 [facility] Comment on above: For patients on eltr ombopag therapy, use of Dimension [place] TBIL is not recommended. Chloride [Moles/Vol] 105 mmol/L 98-107 [facility] Eosinophils/100 WBC (Bld) 3.2 % 0-5 [facility] Glucose [Mass/Vol] 103 mg/dL 74-106 [facility] Comment on above: Fasting Glucose resu lt from 100 to 125 mg/dL suggests IMPAIRED HOMEOSTASIS per A.D.A. criteria. Neutrophils (Bld) [#/Vol] 5.8 10*3/uL 2.0-7.7 [facility] Neutrophils/100 WBC (Bld) 56.5 % 47-70 [facility] Potassium [Moles/Vol] 3.4 mmol/L 3.5-5.1 [facility] Protein [Mass/Vol] 6.7 g/dL 6.4-8.2 [facility] Sodium [Moles/Vol] 139 mmol/L 136-145 [facility] WBC (Bld) [#/Vol] 10.3 10*3/uL 4.4-11.0 [facility] Blood erythrocytes count (nu mber/volume)Ordered By: Dr. Welch on 10-01-2022 RBC (Bld) [#/Vol] 3.91 10*6/uL 4.6-6.2 [facility] Blood hemoglobin measurement (mass/volume)Ordered By: Dr. Welch on 10-01-2022 Hemoglobin (Bld) [Mass/Vol] 11.4 g/dL 13.0-16.5 [facility] Blood lymphocytes/100 leukoc ytesOrdered By: Dr. Welch on 10-01-2022 Lymphocytes/100 WBC (Bld) 31.4 % 19-41 [facility] Blood monocytes/100 leukocyt esOrdered By: Dr. Welch on 10-01-2022 Monocytes/100 WBC (Bld) 7.4 % 0-10 [facility] Blood platelet mean volumeOr dered By: Dr. Welch on 10-01-2022 Platelet mean volume (Bld) [Entitic vol] 9.1 fL 6.2-12.0 [facility] Determination of erythrocyte mean corpuscular volume (MCV)Ordered By: Dr. Welch on 10-01-2022 MCV (RBC) [Entitic vol] 86.4 fL 80-94 [facility] Hematocrit Auto (Bld) [Volum e fraction]Ordered By: Dr. Welch on 10-01-2022 Hematocrit (Bld) [Volume fraction] 33.8 % 40-54 [facility] Laboratory - Chemistry and C hemistry - challengeOrdered By: Dr. Welch on 10-01-2022 ALP [Catalytic activity/Vol] 78 U/L 45-117 [facility] ALT [Catalytic activity/Vol] 24 U/L 16-61 [facility] CO2 [Moles/Vol] 26.0 mmol/L 21.0-32.0 [facility] Globulin (S) [Mass/Vol] 3.5 g/dL 2.2-4.2 [facility] Urea nitrogen/Creatinine [Mass ratio] 15.3 mg/mg 10-20 [facility] Laboratory - Hematology and Cell countsOrdered By: Dr. Welch on 10-01-2022 Erythrocyte distribution width (RBC) [Entitic vol] 41.5 fL 35.1-43.9 [facility] Erythrocyte distribution width (RBC) [Ratio] 13.2 % 11.6-14.6 [facility] Immature granulocytes/100 WBC (Bld) 0.600 % 0.0-0.9 [facility] Comment on above: IG% - Immature Granu locytes (promyelocytes, myelocytes and metamyelocytes) > 1% indicates that a LEFT SHIFT is Present. MCH (RBC) [Entitic mass] 29.2 pg 27.0-32.0 [facility] Nucleated RBC/100 WBC (Bld) [Ratio] 0 % 0-5 [facility] MCHC Auto (RBC) [Mass/Vol]Or dered By: Dr. Welch on 10-01-2022 MCHC (RBC) [Mass/Vol] 33.7 g/dL 32-36 [facility] No Panel InformationOrdered By: Dr. Welch on 10-01-2022 Estimated Creatinine Clearance Calc 104.74 ml/min [facility] Estimated GFR (MDRD) Amer 133 mL/min >60 [facility] Comment on above: GFR Calc Estimated GFR (MDRD) Non-Af Amer 110 mL/min >60 [facility] Comment on above: Non- GFR Calc Ethyl Alcohol Level 88.0 mg/dL [facility] Comment on above: The serum:whole bloo d ethanol ratio is approximately 1.14and varies slightly with hematocrit. Medical Alcohol reference interval and critical value innon-tolerant individuals; 50 - 100 Impairment 100 Intoxication 100 - 250 Severe Poisoning 250 - 400 Deep/possible fatal coma Troponin I High Sensitivity 11 pg/mL 3.0-78.0 [facility] Comment on above: Please Note: New [place] t Units and Gender Specific Reference Ranges. For more information see Policy Stat Procedure [place] High Sensitivity Troponin (TNIH) and attachments. Platelets bldOrdered By: Dr. Welch on 10-01-2022 Platelets (Bld) [#/Vol] 256 10*3/uL 150-450 [facility] Serum or plasma albumin chet urement (mass/volume)Ordered By: Dr. Welch on 10-01-2022 Albumin [Mass/Vol] 3.2 g/dL 3.2-5.0 [facility] Serum or plasma albumin/glob ulin mass ratioOrdered By: Dr. Welch on 10-01-2022 Albumin/Globulin [Mass ratio] 0.9 {ratio} 0.9-2.4 [facility] Serum or plasma calcium chet urement (mass/volume)Ordered By: Dr. Welch on 10-01-2022 Calcium [Mass/Vol] 8.6 mg/dL 8.5-10.1 [facility] Serum or plasma creatinine m easurement (mass/volume)Ordered By: Dr. Welch on 10-01-2022 Creatinine [Mass/Vol] 0.78 mg/dL 0.70-1.30 [facility] Comment on above: The validity of the calculated GFR & GFRAA in patients over 70 years has not been determined. Clinical correlation is essential. Serum or plasma urea nitroge n measurement (mass/volume)Ordered By: Dr. Welch on 10-01-2022 Urea nitrogen [Mass/Vol] 12 mg/dL 7-18 [facility] Thin prep Papanicolaou smear with manual screeningOrdered By: Dr. Welch on 10-01-2022 Thin prep Papanicolaou smear with manual screening 17 U/L 15-37 [facility] Thin prep Papanicolaou smear with manual screening 8 5-15 [facility] Absolute lymphocyte countOrd ered By: Dr. Stanton on 09-25-2022 Lymphocytes Auto (Unsp spec) [#/Vol] 2.47 10*3/uL 0.83-4.51 [facility] Basophil percentageOrdered B y: Dr. Stanton on 09-25-2022 Basophils/100 WBC (Bld) 0.9 % 0-1 [facility] Chloride [Moles/Vol] 106 mmol/L 98-107 [facility] Eosinophils/100 WBC (Bld) 4.9 % 0-5 [facility] Glucose [Mass/Vol] 96 mg/dL 74-106 [facility] Neutrophils (Bld) [#/Vol] 6.8 10*3/uL 2.0-7.7 [facility] Neutrophils/100 WBC (Bld) 63.7 % 47-70 [facility] Potassium [Moles/Vol] 3.7 mmol/L 3.5-5.1 [facility] Sodium [Moles/Vol] 140 mmol/L 136-145 [facility] WBC (Bld) [#/Vol] 10.6 10*3/uL 4.4-11.0 [facility] Blood erythrocytes count (nu mber/volume)Ordered By: Dr. Stanton on 09-25-2022 RBC (Bld) [#/Vol] 4.41 10*6/uL 4.6-6.2 [facility] Blood hemoglobin measurement (mass/volume)Ordered By: Dr. Stanton on 09-25-2022 Hemoglobin (Bld) [Mass/Vol] 12.6 g/dL 13.0-16.5 [facility] Blood lymphocytes/100 leukoc ytesOrdered By: Dr. Stanton on 09-25-2022 Lymphocytes/100 WBC (Bld) 23.3 % 19-41 [facility] Blood monocytes/100 leukocyt esOrdered By: Dr. Stanton on 09-25-2022 Monocytes/100 WBC (Bld) 6.8 % 0-10 [facility] Blood platelet mean volumeOr dered By: Dr. Stanton on 09-25-2022 Platelet mean volume (Bld) [Entitic vol] 8.4 fL 6.2-12.0 [facility] Determination of erythrocyte mean corpuscular volume (MCV)Ordered By: Dr. Stanton on 09-25-2022 MCV (RBC) [Entitic vol] 86.6 fL 80-94 [facility] Hematocrit Auto (Bld) [Volum e fraction]Ordered By: Dr. Stanton on 09-25-2022 Hematocrit (Bld) [Volume fraction] 38.2 % 40-54 [facility] Laboratory - Chemistry and C hemistry - challengeOrdered By: Dr. Stanton on 09-25-2022 CO2 [Moles/Vol] 28.0 mmol/L 21.0-32.0 [facility] Urea nitrogen/Creatinine [Mass ratio] 10.0 mg/mg 10-20 [facility] - Drug toxicology Ordered By: Dr. Stanton on 09-25-2022 Amphetamines Ql (U) Negative <1000 ng/mL [facility] Benzodiazepines Ql (U) Negative < 200 ng/mL [facility] Cannabinoids Screen Ql (U) Positive < 50 ng/mL [facility] Cocaine Ql (U) Negative < 300 ng/mL [facility] Opiates Ql (U) Negative < 300 ng/mL [facility] Laboratory - Hematology and Cell countsOrdered By: Dr. Stanton on 09-25-2022 Erythrocyte distribution width (RBC) [Entitic vol] 43.9 fL 35.1-43.9 [facility] Erythrocyte distribution width (RBC) [Ratio] 13.7 % 11.6-14.6 [facility] Immature granulocytes/100 WBC (Bld) 0.400 % 0.0-0.9 [facility] Comment on above: IG% - Immature Granu locytes (promyelocytes, myelocytes and metamyelocytes) > 1% indicates that a LEFT SHIFT is Present. MCH (RBC) [Entitic mass] 28.6 pg 27.0-32.0 [facility] Nucleated RBC/100 WBC (Bld) [[facility]] 0 % 0-5 [facility] [Mass/Vol]Or dered By: Dr. Stanton on 09-25-2022 MCHC (RBC) [Mass/Vol] 33.0 g/dL 32-36 [facility] No Panel InformationOrdered By: Dr. Stanton on 09-25-2022 MDMA (Ecstasy) Screen Negative < 500 ng/mL [facility] Urine Barbiturates Screen Negative < 200 ng/mL [facility] Urine Drug Screen Comment [facility] Comment on above: CONFIRMATORY TESTING FOR [...] Methadone Screen Negative < 300 ng/mL [facility] Estimated Creatinine Clearance Calc 93.83 ml/min [facility] Estimated GFR (MDRD) Amer 113 mL/min >60 [facility] Comment on above: GFR Calc Estimated GFR (MDRD) Non-Af Amer 94 mL/min >60 [facility] Comment on above: Non- GFR Calc Ethyl Alcohol Level < 3.0 mg/dL [facility] Comment on above: The serum:whole bloo d ethanol ratio is approximately 1.14and varies slightly with hematocrit. Medical Alcohol reference interval and critical value innon-tolerant individuals; 50 - 100 Impairment 100 Intoxication 100 - 250 Severe Poisoning 250 - 400 Deep/possible fatal coma Platelets bldOrdered By: Dr. Stanton on 09-25-2022 Platelets (Bld) [#/Vol] 299 10*3/uL 150-450 [facility] Serum or plasma calcium chet urement (mass/volume)Ordered By: Dr. Stanton on 09-25-2022 Calcium [Mass/Vol] 8.7 mg/dL 8.5-10.1 [facility] Serum or plasma creatinine m easurement (mass/volume)Ordered By: Dr. Stanton on 09-25-2022 Creatinine [Mass/Vol] 0.90 mg/dL 0.70-1.30 [facility] Comment on above: The validity of the calculated GFR & GFRAA in patients over 70 years has not been determined. Clinical correlation is essential. Serum or plasma urea nitroge n measurement (mass/volume)Ordered By: Dr. Stanton on 09-25-2022 Urea nitrogen [Mass/Vol] 9 mg/dL 7-18 [facility] Thin prep Papanicolaou smear with manual screeningOrdered By: Dr. Stanton on 09-25-2022 Thin prep Papanicolaou smear with manual screening 6 5-15 [facility] Urine phencyclidine (PCP) de tectionOrdered By: Dr. Stanton on 09-25-2022 Phencyclidine Ql (U) Negative < 25 ng/mL [facility] Laboratory - Drug toxicology Ordered By: Franklyn Callahan on 09-23-2022 Amphetamines Ql (U) Negative <1000 ng/mL [facility] Benzodiazepines Ql (U) Negative < 200 ng/mL [facility] Cannabinoids Screen Ql (U) Positive < 50 ng/mL [facility] Cocaine Ql (U) Negative < 300 ng/mL [facility] Opiates Ql (U) Negative < 300 ng/mL [facility] No Panel InformationOrdered By: Franklny Callahan on 09-23-2022 MDMA (Ecstasy) Screen Negative < 500 ng/mL [facility] Urine Barbiturates Screen Negative < 200 ng/mL [facility] Urine Drug Screen Comment [facility] Comment on above: CONFIRMATORY TESTING FOR [...] TESTING MUST BE ORDERED SEPARATELY. USE TESTMNEMONIC: [facility] Urine Methadone Screen Negative < 300 ng/mL [facility] Urine phencyclidine (PCP) de tectionOrdered By: Franklyn Callahan on 09-23-2022 Phencyclidine Ql (U) Negative < 25 ng/mL [facility] Absolute lymphocyte counton 11-09-2021 Lymphocytes Auto (Unsp spec) [#/Vol] 1.91 10*3/uL 0.83-4.51 [facility] Work Phone: Basophil percentageon 2021 Basophils/100 WBC (Bld) 1.0 % 0-1 [facility] Work Phone: Bilirubin [Mass/Vol] 0.30 mg/dL 0.20-1.00 [facility] Work Phone: Comment on above: For patients on eltr ombopag therapy, use of Dimension [place] TBIL is not recommended. Chloride [Moles/Vol] 106 mmol/L 98-107 [facility] Work Phone: Cholesterol [Mass/Vol] 261 mg/dL <200 [facility] Work Phone: Comment on above: <200 mg/dL Desirable 200-240 mg/dL Borderline >240 mg/dL High Risk Eosinophils/100 WBC (Bld) 2.8 % 0-5 [facility] Work Phone: Glucose [Mass/Vol] 93 mg/dL 74-106 [facility] Work Phone: Neutrophils (Bld) [#/Vol] 9.3 10*3/uL 2.0-7.7 [facility] Work Phone: Neutrophils/100 WBC (Bld) 74.8 % 47-70 [facility] Work Phone: Potassium [Moles/Vol] 3.9 mmol/L 3.5-5.1 [facility] Work Phone: Protein [Mass/Vol] 7.6 g/dL 6.4-8.2 [facility] Work Phone: Sodium [Moles/Vol] 140 mmol/L 136-145 [facility] Work Phone: [phone] Triglyceride [Mass/Vol] 235 mg/dL <199 [facility] Work Phone: [phone] Comment on above: The drugs N-Acetylcy steine and Metamizole may falsely depress this assay.Serum Triglycerides Reference Interval Normal <150 mg/dL Borderline high 150 - 199 mg/dL High 200 - 499 mg/dL Very High > or = 500 mg/dL WBC (Bld) [#/Vol] 12.4 10*3/uL 4.4-11.0 [facility] Work Phone: Blood erythrocytes count (nu mber/volume)on 11-09-2021 RBC (Bld) [#/Vol] 4.61 10*6/uL 4.6-6.2 [facility] Work Phone: [phone] Blood hemoglobin measurement (mass/volume)on 11-09-2021 Hemoglobin (Bld) [Mass/Vol] 13.4 g/dL 13.0-16.5 [facility] Work Phone: [phone] Blood lymphocytes/100 leukoc yteson 11-09-2021 Lymphocytes/100 WBC (Bld) 15.4 % 19-41 [facility] Work Phone: [phone] Blood monocytes/100 leukocyt eson 11-09-2021 Monocytes/100 WBC (Bld) 5.6 % 0-10 [facility] Work Phone: [phone] Blood platelet mean volumeon 11-09-2021 Platelet mean volume (Bld) [Entitic vol] 8.6 fL 6.2-12.0 [facility] Work Phone: [phone] Determination of erythrocyte mean corpuscular volume (MCV)on 11-09-2021 MCV (RBC) [Entitic vol] 87.4 fL 80-94 [facility] Work Phone: Hematocrit Auto (Bld) [Volum e fraction]on 11-09-2021 Hematocrit (Bld) [Volume fraction] 40.3 % 40-54 [facility] Work Phone: [phone] Iron measurement (mass/mass) on 11-09-2021 Iron (Unsp spec) [Mass/Mass] 77 ug/dL 65-175 [facility] Work Phone: [phone] Laboratory - Chemistry and C hemistry - challengeon 11-09-2021 ALP [Catalytic activity/Vol] 97 U/L 45-117 [facility] Work Phone: [phone] ALT [Catalytic activity/Vol] 25 U/L 16-61 [facility] Work Phone: [phone] CO2 [Moles/Vol] 27.0 mmol/L 21.0-32.0 [facility] Work Phone: [phone] Cobalamin (Vitamin B12) [Mass/Vol] 452 pg/mL 211-911 [facility] Work Phone: [phone] Free T4 [Mass/Vol] 0.61 ng/dL 0.76-1.46 [facility] Work Phone: [phone] Globulin (S) [Mass/Vol] 3.9 g/dL 2.2-4.2 [facility] Work Phone: [phone] Urea nitrogen/Creatinine [Mass ratio] 10.0 mg/mg 10-20 [facility] Work Phone: [phone] Laboratory - Hematology and Cell countson 11-09-2021 Erythrocyte distribution width (RBC) [Entitic vol] 42.3 fL 35.1-43.9 [facility] Work Phone: [phone] Erythrocyte distribution width (RBC) [Ratio] 13.2 % 11.6-14.6 [facility] Work Phone: [phone] Immature granulocytes/100 WBC (Bld) 0.400 % 0.0-0.9 [facility] Work Phone: [phone] Comment on above: IG% - Immature Granu locytes (promyelocytes, myelocytes and metamyelocytes) > 1% indicates that a LEFT SHIFT is Present. MCH (RBC) [Entitic mass] 29.1 pg 27.0-32.0 [facility] Work Phone: [phone] Nucleated RBC/100 WBC (Bld) [Ratio] 0 % 0-5 [facility] Work Phone: MCHC Auto (RBC) [Mass/Vol]on 11-09-2021 MCHC (RBC) [Mass/Vol] 33.3 g/dL 32-36 [facility] Work Phone: No Panel Informationon 11-09 Estimated GFR (MDRD) Amer 100 mL/min >60 [facility] Work Phone: Comment on above: GFR Calc Estimated GFR (MDRD) Non-Af Amer 83 mL/min >60 [facility] Work Phone: Comment on above: Non- GFR Calc Thyroid Stimulating Hormone (TSH) 2.36 uIU/mL 0.358-3.74 [facility] Work Phone: Total Iron Binding Capacity 290 ug/dL 250-450 [facility] Work Phone: Vitamin D 25-Hydroxy 37.1 ng/mL [facility] Work Phone: Comment on above: Vitamin D 25(OH) Sta tus Range Deficiency <20 ng/mL (50nmol/L) Insufficiency 20 - 30 ng/mL (50 - 75 nmol/L) Sufficiency 30 - 100 ng/mL (75 - 250 nmol/L) Toxicity >100 ng/mL (>250 nmol/L) Platelets bldon 11-09-2021 Platelets (Bld) [#/Vol] 330 10*3/uL 150-450 [facility] Work Phone: [phone] Serum or plasma albumin chet urement (mass/volume)on 11-09-2021 Albumin [Mass/Vol] 3.7 g/dL 3.2-5.0 [facility] Work Phone: [phone] Serum or plasma albumin/glob ulin mass ratioon 11-09-2021 Albumin/Globulin [Mass ratio] 0.9 {ratio} 0.9-2.4 [facility] Work Phone: [phone] Serum or plasma calcium chet urement (mass/volume)on 11-09-2021 Calcium [Mass/Vol] 9.3 mg/dL 8.5-10.1 [facility] Work Phone: Serum or plasma cholesterol in HDL measurement (mass/volume)on 11-09-2021 Cholesterol in HDL [Mass/Vol] 43 mg/dL >40 [facility] Work Phone: Comment on above: The drugs N-Acetylcy steine and Metamizole may falsely depress this assay. Reference Range HDL <40 mg/dL Low HDL Cholesterol HDL >or= 60 mg/dL High HDL Cholesterol Serum or plasma cholesterol in VLDL measurement (mass/volume)on 11-09-2021 Cholesterol in VLDL [Mass/Vol] 47 mg/dL 5-40 [facility] Work Phone: Serum or plasma creatinine m easurement (mass/volume)on 11-09-2021 Creatinine [Mass/Vol] 1.00 mg/dL 0.70-1.30 [facility] Work Phone: Comment on above: The validity of the calculated GFR & GFRAA in patients over 70 years has not been determined. Clinical correlation is essential. Serum or plasma low density lipoprotein (LDL) cholesterol measurement (mass/volume)on 11-09-2021 Cholesterol in LDL [Mass/Vol] 171 mg/dL 0-130 [facility] Work Phone: Serum or plasma urea nitroge n measurement (mass/volume)on 11-09-2021 Urea nitrogen [Mass/Vol] 10 mg/dL 7-18 [facility] Work Phone: Thin prep Papanicolaou smear with manual screeningon 11-09-2021 Thin prep Papanicolaou smear with manual screening 18 U/L 15-37 [facility] Work Phone: Thin prep Papanicolaou smear with manual screening 7 5-15 [facility] Work Phone: XR Lumbar spine 3 Viewson Radiology Study observation (narrative) [facility] IMPRESSION: 1. No acute fracture or subluxation. Senior Publications Specialist: ENEDINA Transcribe Date/Time: Sep 20 2021 6:50P Dictated by : KACI TALAMANTES MD This examination was interpreted and the report reviewed and electronically signed by: KACI TALAMANTES MD on Sep 20 2021 6:54PM EST [id number] _DIVISION OF RADIOLOGY * * *Final Report* * [...] disease in the lower lumbar spine. [id number]_U _DIVISION OF RADIOLOGY Provider, [facility] - 09/20/2021 * * *Final Report* [...] IMPRESSION: 1. No acute fracture or subluxation. Senior Publications Specialist: PSCB Transcribe Date/Time: Sep 20 2021 6:50P Dictated by : KACI TALAMANTES MD This examination was interpreted and the report reviewed and electronically signed by: KACI TALAMANTES MD on Sep 20 2021 6:54PM EST [facility] XR Lumbar spine 3 ViewsOrder ed By: Ccf Provider on 09-20-2021 [facility] Order Reconciliationon 08-11 Order Reconciliation Page 1 [...] be shared with your follow-up providers (doctor, delivery driver/customer service, physical therapist, etc.). Post Procedure Discharge Criteria [...] Disposition : .Home (more content not included)... [facility] Patient Profile - Preop v3on 08-09-2021 Patient Profile - Preop v3 Patient Profile - Preop: Initial Info: Patient DemographicsName: MIKE HATCH Date: 1970 Address: [address] [place], [address] Primary Phone [phone] Call Attemptedattempt 1 Instructions Givenappropriate clothing, bring responsible adult as the ambulance driver (procedure may be cancelled if no ambulance driver), center location, insurance information Prep Instructions Reviewedyes How to be Addresseddarin Spoken Language PreferredEnglish Source of Informationpatient Stated Reason for Admissionleft eye cataract removal Primary Contact Name and NumberJULIE-FRIEND [phone] Medications Brought to Hospitalno General Health: Weight in kg103.7 kilogram(s) Weight in aho376.6 pound(s) Weight Methodactual (measured) Scale Typestanding Height in feet5 feet Height in zhfall90 inch(es) Height in cm177.8 centimeter(s) Height Methodstated BMI (kg/m2)32.803 square meter Patient or Family Member Reaction to Anesthesiano previous reaction; no previous family member reaction Blood Avoidance/Restrictionsb lood borne infection concerns Previous Transfusion Reactionno Health Mgmt: Symptoms/Conditions Managed at Homebehavioral health Behavioral Health Symptoms/Conditionsanxi ety; depression; ADHD/ADD Barriers to Managing Healthnone Relationship/Environ: Lives Withfriend(s) Living Arrangementsapartment Resource/Environmental Concernsnone [facility] Anticipated at Transitionnone Tobacco Use: Tobacco Useno Pre-op Checklist: Arrival [id number] Arrival Time06:00 Procedure TypeLeft EYE CATARACT NPOyes Last Food [id number] 18:00 Last Clear Fluid [id number] 22:00 ID Band On Patientpatient ID (name) [...] Known Allergies: Active Electronic Signatures: Alpa Sorto (CHRISTIANO) (Signed 11-Aug-2021 06:17) Authored: Initial Info, General Health, Health Mgmt, Pre-op Checklist, Additional Information Radha HoffmanRN) (Signed 09-Aug-2021 07:07) Authored: Initial Info, General Health, Health Mgmt, Relationship/Environ, Tobacco Use, Pre-op Checklist, Additional Information Last Updated: 11-Aug-2021 06:17 by Alpa Sorto (CHRISTIANO) [facility] XR Hand - right PA and Later al and Obliqueon 07-07-2021 IMPRESSION: Unremarkable radiograph Senior Publications Specialist: ENEDINA Transcribe Date/Time: Jul 07 2021 3:24P Dictated by : JAZLYN RUBY MD This examination was interpreted and the report reviewed and electronically signed by: JAZLYN RUBY MD on Jul 07 2021 3:25PM EST DIVISION OF RADIOLOGY * * *Final Report* [...] soft tissue calcification. DIVISION OF RADIOLOGY Provider, [facility] - 07/07/2021 * * *Final Report* [...] soft tissue calcification. IMPRESSION IMPRESSION: Unremarkable radiograph Senior Publications Specialist: ENEDINA Transcribe Date/Time: Jul 07 2021 3:24P Dictated by : JAZLYN RUBY MD This examination was interpreted and the report reviewed and electronically signed by: JAZLYN RUBY MD on Jul 07 2021 3:25PM EST [facility] Radiology Study observation (narrative) Abilio qureshi [facility] XR Hand - right PA and Later al and ObliqueOrdered By: Ccf Provider on 07-07-2021 [facility] CORONAVIRUS 2019, SCREEN ASY MPTOMATICon 06-29-2021 DATE OF SYMPTOM ONSET [[id number]]? Canceled Normal [facility] Comment on above: Order Comment: TEST CORONAVIRUS 2019, SCREEN ASYMPTOMATIC WAS CANCELLED, 06/29/2021 15:15 PT DID NOT HAVE TEST DONE. Performed By: #### C OVSC #### [facility] [address] [place] [address] SARS-CoV-2 (COVID-19) RNA CIARA+probe Ql (Unsp spec) Canceled Normal [facility] Comment on above: Order Comment: TEST CORONAVIRUS [...] patient management decisions. Fact sheet for providers: https://www.fda.gov/media/458020/download Fact sheet for patients: https://www.fda.gov/media/811110/download This test has received FDA Emergency Use Authorization (EUA) and has been verified by [facility] ([facility]). This test is only authorized for the duration of time that circumstances exist to justify the authorization of the emergency use of in vitro diagnostic tests for the detection of SARS-CoV-2 virus and/or diagnosis of COVID-19 infection under section 564(b)(1) of the Act, 21 U.S.C. 360bbb-3(b)(1), unless the authorization is terminated or revoked sooner. [facility] is certified under CLIA-88 as qualified to perform high complexity testing. Testing is performed in the [facility] laboratories located at [address] [place] [address]. Performed By: #### C OVSC #### [address] [place] [address] CORONAVIRUS 2018, SCREEN ASY MPTOMATICon 06-01-2021 Lab Specimen Source Nasal, Nasopharyngeal Normal [facility] Comment on above: Order Comment: TEST CORONAVIRUS 2018, SCREEN ASYMPTOMATIC WAS CANCELLED, 06/29/2021 15:15 PT DID NOT HAVE TEST DONE. Performed By: #### C OVSC #### [facility] [address] [place] [address] Vital Signs Date Time Vital Sign Value Performing Clinician Facility 12-08-2024 14:03-0400 Body height 177.8 cm [facility] Work Phone: [phone])[phone] [place] [address] 12-08-2024 14:03-0400 Body temperature 96.2 [degF] [facility] Work Phone: [phone])479-522929 [place] [address] 12-08-2024 14:03-0400 Diastolic blood pressure 81 mm[Hg] [facility] Work Phone: 4(436)247-177629 [place] [address] 12-08-2024 14:03-0400 Heart rate 80 /min [facility] Work Phone: 0(712)462-678329 [place] [address] 12-08-2024 14:03-0400 Respiratory rate 26 /min [facility] Work Phone: [phone])586-816729 [place] [address] 12-08-2024 14:03-0400 SaO2% (BldA) [Mass fraction] 96 % [facility] Work Phone: [phone])925-941429 [place] [address] 12-08-2024 14:03-0400 Systolic blood pressure 165 mm[Hg] [facility] Work Phone: 4(808)504-174529 [place] [address] 08-29-2024 15:15-0400 Body temperature 98.1 [degF] [facility] Work Phone: 2(214)217-249929 [place] [address] 08-29-2024 15:15-0400 Diastolic blood pressure 68 mm[Hg] [facility] Work Phone: 7(961)196-827729 [place] [address] 08-29-2024 15:15-0400 Heart rate 66 /min [facility] Work Phone: 2(024)617-777729 [place] [address] 08-29-2024 15:15-0400 Respiratory rate 16 /min [facility] Work Phone: [phone])649-640829 [place] [address] 08-29-2024 15:15-0400 SaO2% (BldA) [Mass fraction] 93 % [facility] Work Phone: [phone])386-317629 [place] [address] 08-29-2024 15:15-0400 Systolic blood pressure 144 mm[Hg] [facility] Work Phone: 1(086)210-656329 [place] [address] 08-28-2024 16:00-0400 Body height 177.8 cm [facility] Work Phone: 6(913)558-780429 [place] [address] 08-28-2024 16:00-0400 Body weight 107 kg [facility] Work Phone: 4(322)214-112529 [place] [address] 08-27-2024 18:05-0400 Body mass index (BMI) [Ratio] 33.8 kg/m2 [facility] Work Phone: 0(699)814-382329 [place] [address] 08-27-2024 17:15-0400 Inhaled oxygen flow rate 2 L/min [facility] Work Phone: [phone])006-716329 [place] [address] 08-27-2024 13:25-0400 Body temperature 98 [degF] [facility] Work Phone: [phone])981-693529 [place] [address] 08-27-2024 13:25-0400 Diastolic blood pressure 77 mm[Hg] [facility] Work Phone: 1(004)870-338829 [place] [address] 08-27-2024 13:25-0400 Heart rate 62 /min [facility] Work Phone: [phone])[phone] [place] [address] 08-27-2024 13:25-0400 Respiratory rate 16 /min [facility] Work Phone: 9(565)469-948129 [place] [address] 08-27-2024 13:25-0400 SaO2% (BldA) [Mass fraction] 94 % [facility] Work Phone: 4(907)116-151529 [place] [address] 08-27-2024 13:25-0400 Systolic blood pressure 139 mm[Hg] [facility] Work Phone: 0(036)214-670929 [place] [address] 08-27-2024 10:21-0400 Body height 177.8 cm [facility] Work Phone: 0(635)511-843029 [place] [address] 08-27-2024 10:21-0400 Body mass index (BMI) [Ratio] 33.8 kg/m2 [facility] Work Phone: [phone])[phone] [place] [address] 08-27-2024 10:21-0400 Body weight 107 kg [facility] Work Phone: [facility] 10-16-2023 13:48-0400 Body mass index (BMI) [Ratio] 35.49 kg/m2 Daxa Norman PENCILLER.OPERATIONS COORDINATOR Work Phone: [facility] 10-16-2023 13:48-0400 Body temperature 98.2 [degF] Daxa Norman PENCILLER.OPERATIONS COORDINATOR Work Phone: [facility] 10-16-2023 13:48-0400 Body weight 112.2 kg Daxa Norman PENCILLER.OPERATIONS COORDINATOR Work Phone: [facility] 10-16-2023 13:48-0400 Diastolic blood pressure 60 mm[Hg] Daxa Norman PENCILLER.OPERATIONS COORDINATOR Work Phone: [facility] 10-16-2023 13:48-0400 Heart rate 84 /min Daxa Norman PENCILLER.OPERATIONS COORDINATOR Work Phone: [facility] 10-16-2023 13:48-0400 Respiratory rate 16 /min Daxa Norman PENCILLER.OPERATIONS COORDINATOR Work Phone: [facility] 10-16-2023 13:48-0400 SaO2% (BldA) [Mass fraction] 95 % Daxa Norman PENCILLER.OPERATIONS COORDINATOR Work Phone: [facility] 10-16-2023 13:48-0400 Systolic blood pressure 104 mm[Hg] Daxa Norman PENCILLER.OPERATIONS COORDINATOR Work Phone: [facility] 08-03-2023 09:24-0400 Body height 175.3 cm Celina Bliss MD Work Phone: [facility] [employer] 08-03-2023 09:24-0400 Body mass index (BMI) [Ratio] 37.21 kg/m2 Celina Bliss MD Work Phone: [facility] [employer] 08-03-2023 09:24-0400 Body weight 114.31 kg Celina Bliss MD Work Phone: [facility] [employer] 06-01-2023 11:18-0500 Body height 175.3 cm Oliva Rios MD Work Phone: [facility] 06-01-2023 11:18-0500 Body mass index (BMI) [Ratio] 37.21 kg/m2 Oliva Rios MD Work Phone: [facility] 06-01-2023 11:18-0500 Body weight 114.31 kg Oliva Rios MD Work Phone: [facility] 06-01-2023 11:18-0500 SaO2% (BldA) [Mass fraction] 98 % Oliva Rios MD Work Phone: [facility] 06-01-2023 11:17-0500 Body temperature 96.69 [degF] Oliva Rios MD Work Phone: [facility] 06-01-2023 11:17-0500 Diastolic blood pressure 54 mm[Hg] Oliva Rios MD Work Phone: [facility] 06-01-2023 11:17-0500 Heart rate 71 /min Oliva Rios MD Work Phone: [facility] 06-01-2023 11:17-0500 Respiratory rate 18 /min Oliva Rios MD Work Phone: [facility] 06-01-2023 11:17-0500 Systolic blood pressure 126 mm[Hg] Oliva Rios MD Work Phone: [facility] 04-20-2023 12:42-0500 Body temperature 98.7 [degF] [facility] Work Phone: [facility] 04-20-2023 12:42-0500 Diastolic blood pressure 64 mm[Hg] [facility] Work Phone: [facility] 04-20-2023 12:42-0500 Heart rate 70 /min [facility] Work Phone: [facility] 04-20-2023 12:42-0500 Respiratory rate 18 /min [facility] Work Phone: [facility] 04-20-2023 12:42-0500 SaO2% (BldA) [Mass fraction] 99 % [facility] Work Phone: [facility] 04-20-2023 12:42-0500 Systolic blood pressure 134 mm[Hg] [facility] Work Phone: [phone] [place] [address] 04-20-2023 01:49-0500 Body mass index (BMI) [Ratio] 36 kg/m2 [facility] Work Phone: [phone] [place] [address] 04-20-2023 01:49-0500 Body weight 114 kg [facility] Work Phone: [phone] [place] [address] 04-19-2023 19:10-0500 Body height 177.8 cm [facility] Work Phone: [phone] [place] [address] 10-06-2022 19:40-0400 Body height 177.8 cm [facility] 10-06-2022 19:40-0400 Body mass index (BMI) [Ratio] 30.4 kg/m2 [facility] 10-06-2022 19:40-0400 Body temperature 97.9 [degF] [facility] 10-06-2022 19:40-0400 Body weight 96.16 kg [facility] 10-06-2022 19:40-0400 Diastolic blood pressure 96 mm[Hg] [facility] 10-06-2022 19:40-0400 Heart rate 95 /min [facility] 10-06-2022 19:40-0400 Respiratory rate 16 /min [facility] 10-06-2022 19:40-0400 SaO2% (BldA) [Mass fraction] 97 % [facility] 10-06-2022 19:40-0400 Systolic blood pressure 119 mm[Hg] [facility] 10-03-2022 07:56-0400 Respiratory rate 14 /min [facility] 10-03-2022 06:00-0400 Body temperature 97.1 [degF] [facility] 10-03-2022 06:00-0400 Diastolic blood pressure 58 mm[Hg] [facility] 10-03-2022 06:00-0400 Heart rate 62 /min [facility] 10-03-2022 06:00-0400 SaO2% (BldA) [Mass fraction] 94 % [facility] 10-03-2022 06:00-0400 Systolic blood pressure 107 mm[Hg] [facility] 10-02-2022 16:38-0400 Body mass index (BMI) [Ratio] 31.4 kg/m2 [facility] 10-02-2022 16:38-0400 Body weight 96.61 kg [facility] 10-02-2022 10:10-0400 Body temperature 97.6 [degF] [facility] 10-02-2022 10:10-0400 Diastolic blood pressure 76 mm[Hg] [facility] 10-02-2022 10:10-0400 Heart rate 72 /min [facility] 10-02-2022 10:10-0400 Respiratory rate 14 /min [facility] 10-02-2022 10:10-0400 SaO2% (BldA) [Mass fraction] 100 % [facility] 10-02-2022 10:10-0400 Systolic blood pressure 136 mm[Hg] [facility] 10-02-2022 08:29-0400 Body mass index (BMI) [Ratio] 29.9 kg/m2 [facility] 10-02-2022 08:29-0400 Body weight 91.6 kg [facility] 10-02-2022 03:57-0400 Respiratory rate 16 /min [facility] 10-02-2022 01:00-0400 Diastolic blood pressure 55 mm[Hg] [facility] 10-02-2022 01:00-0400 Heart rate 79 /min [facility] 10-02-2022 01:00-0400 SaO2% (BldA) [Mass fraction] 99 % [facility] 10-02-2022 01:00-0400 Systolic blood pressure 106 mm[Hg] [facility] 10-01-2022 20:41-0400 Body mass index (BMI) [Ratio] 32.7 kg/m2 [facility] 10-01-2022 20:41-0400 Body temperature 98.2 [degF] [facility] 10-01-2022 20:41-0400 Body weight 100.3 kg [facility] 09-26-2022 06:52-0400 Diastolic blood pressure 70 mm[Hg] [facility] 09-26-2022 06:52-0400 Heart rate 75 /min [facility] 09-26-2022 06:52-0400 Respiratory rate 18 /min [facility] 09-26-2022 06:52-0400 Systolic blood pressure 136 mm[Hg] [facility] 09-26-2022 02:45-0400 SaO2% (BldA) [Mass fraction] 100 % [facility] 09-25-2022 10:53-0400 Body height 175.26 cm [facility] 09-25-2022 10:53-0400 Body mass index (BMI) [Ratio] 30.2 kg/m2 [facility] 09-25-2022 10:53-0400 Body temperature 98 [degF] [facility] 09-25-2022 10:53-0400 Body weight 92.98 kg [facility] 09-24-2022 00:38-0400 Body height 175.26 cm [facility] 09-24-2022 00:38-0400 Body mass index (BMI) [Ratio] 32.1 kg/m2 [facility] 09-24-2022 00:38-0400 Body temperature 97.9 [degF] [facility] 09-24-2022 00:38-0400 Body weight 98.5 kg [facility] 09-24-2022 00:38-0400 Diastolic blood pressure 65 mm[Hg] [facility] 09-24-2022 00:38-0400 Heart rate 91 /min [facility] 09-24-2022 00:38-0400 Respiratory rate 18 /min [facility] 09-24-2022 00:38-0400 SaO2% (BldA) [Mass fraction] 95 % [facility] 09-24-2022 00:38-0400 Systolic blood pressure 120 mm[Hg] [facility] 09-23-2022 21:37-0400 Diastolic blood pressure 75 mm[Hg] [facility] 09-23-2022 21:37-0400 Heart rate 67 /min [facility] 09-23-2022 21:37-0400 Respiratory rate 20 /min [facility] 09-23-2022 21:37-0400 SaO2% (BldA) [Mass fraction] 93 % [facility] 09-23-2022 21:37-0400 Systolic blood pressure 133 mm[Hg] [facility] 09-23-2022 21:25-0400 Body height 175.26 cm [facility] 09-23-2022 21:25-0400 Body mass index (BMI) [Ratio] 31.7 kg/m2 [facility] 09-23-2022 21:25-0400 Body temperature 97 [degF] [facility] 09-23-2022 21:25-0400 Body weight 97.4 kg [facility] 03-06-2022 21:37-0500 Diastolic blood pressure 68 mm[Hg] [facility] Work Phone: 03-06-2022 21:37-0500 Heart rate 90 /min [facility] Work Phone: 03-06-2022 21:37-0500 Respiratory rate 15 /min [facility] Work Phone: 03-06-2022 21:37-0500 SaO2% (BldA) [Mass fraction] 98 % [facility] Work Phone: 03-06-2022 21:37-0500 Systolic blood pressure 110 mm[Hg] [facility] Work Phone: 03-06-2022 18:35-0500 Body height 175.26 cm [facility] Work Phone: 03-06-2022 18:35-0500 Body mass index (BMI) [Ratio] 33.3 kg/m2 [facility] Work Phone: 03-06-2022 18:35-0500 Body temperature 98.3 [degF] [facility] Work Phone: 03-06-2022 18:35-0500 Body weight 102.2 kg [facility] Work Phone: 11-23-2021 22:34-0400 Diastolic blood pressure 60 mm[Hg] [facility] Work Phone: 11-23-2021 22:34-0400 Heart rate 87 /min [facility] Work Phone: 11-23-2021 22:34-0400 Respiratory rate 18 /min [facility] Work Phone: 11-23-2021 22:34-0400 Systolic blood pressure 154 mm[Hg] [facility] Work Phone: 11-23-2021 20:55-0400 Body height 175.26 cm [facility] Work Phone: 11-23-2021 20:55-0400 Body mass index (BMI) [Ratio] 34.2 kg/m2 [facility] Work Phone: 11-23-2021 20:55-0400 Body temperature 98.2 [degF] [facility] Work Phone: 11-23-2021 20:55-0400 Body weight 105.23 kg [facility] Work Phone: 11-23-2021 20:55-0400 SaO2% (BldA) [Mass fraction] 97 % [facility] Work Phone: 09-18-2021 09:07-0400 Body temperature 98.8 [degF] Janelle Athy PA-C Work Phone: [facility] 09-18-2021 09:07-0400 Body weight 108.86 kg Janelle Athy PA-C Work Phone: [facility] 09-18-2021 09:07-0400 Diastolic blood pressure 82 mm[Hg] Janelle Athy PA-C Work Phone: [facility] 09-18-2021 09:07-0400 Heart rate 85 /min Janelle Athy PA-C Work Phone: [facility] 09-18-2021 09:07-0400 Respiratory rate 20 /min Janelle Athy PA-C Work Phone: [facility] 09-18-2021 09:07-0400 SaO2% (BldA) [Mass fraction] 97 % Janelle Athy PA-C Work Phone: [facility] 09-18-2021 09:07-0400 Systolic blood pressure 130 mm[Hg] Janelle Athy PA-C Work Phone: [facility] 08-02-2021 14:44-0400 Diastolic blood pressure 77 mm[Hg] Gustavo Gutierrez MD Work Phone: [facility] 08-02-2021 14:44-0400 Heart rate 60 /min Gustavo Gutierrez MD Work Phone: [facility] 08-02-2021 14:44-0400 Systolic blood pressure 113 mm[Hg] Gustavo Gutierrez MD Work Phone: [facility] Encounters Encounter Date Encounter Type Care Provider Facility Start: 02-19-2025 End: 02-19-2025 ambulatory [facility] Facility:[facility] Start: 12-08-2024 End: 12-08-2024 Emergency department patient visit [facility] Work Phone: -Emergency Department Work Phone: Start: 08-29-2024 Non-patient / Non-visit Dr. Demetrius Hernández MD -[facility] Start: 08-28-2024 Non-patient / Non-visit Dr. Demetrius Hernández MD -[facility] Start: 08-27-2024 ambulatory Demetrius carrion:[facility] Start: 08-27-2024 End: 08-29-2024 Evaluation and management of inpatient Dr. Demetrius Hernández MD -Medical Surgical 3 Work Phone: Start: 08-27-2024 [facility] Dr[facility] Demetrius Hernández MD -[facility] [employer] Specialist Inpatients Work Phone: Start: 08-27-[address] [facility] Work Phone: [facility] Work Phone: Start: 08-27-2024 Non-patient / Non-visit Dr. Demetrius Hernández MD -[facility] Start: 10-16-2023 End: 10-16-2023 Patient encounter procedure Daxa Linda PENCILLER.OPERATIONS COORDINATOR Work Phone: [facility] Comment on above: Cellulitis of hand ( Primary Dx); Infected wound Start: 10-16-2023 End: 10-16-2023 ambulatory Facility:[facility] Start: 08-08-2023 End: 08-08-2023 Emergency department patient visit ANKUSH SETH [facility] Start: 08-03-2023 End: 08-04-2023 ambulatory CELINA [facility] Start: 08-03-2023 End: 08-03-2023 Office outpatient new 30 minutes Celina Bliss MD Work Phone: [facility] Comment on above: Lumbar pain (Primary Dx); DDD (degenerative disc disease), lumbar; Lumbar radiculitis Start: 08-03-2023 End: 08-03-2023 Subsequent hospital visit by physician [facility] Comment on above: Lumbar pain Start: 07-04-2023 End: 07-05-2023 Emergency department patient visit INOCENCIA MANISHA [facility] Start: 07-04-2023 End: 07-04-2023 Emergency department patient visit CELINA BLISS [facility] Start: 07-04-2023 End: 07-04-2023 Subsequent hospital visit by physician Ryan [facility] Comment on above: Arrived Start: 06-14-2023 End: 06-15-2023 ambulatory SOLEDAD CUEVAS [facility] Start: 06-14-2023 End: 06-14-2023 Subsequent hospital visit by physician Soledad Cuevas DP Work Phone: [facility] X[facility] Comment on above: Calcaneal spur, righ t foot; Calcaneal spur, left foot; Pain in right foot; Pain in left foot Calcaneal spur, righ t foot (Primary Dx); Calcaneal spur, left foot; Pain in right foot; Pain in left foot Start: 06-01-2023 End: 06-01-2023 Emergency department patient visit OLIVA RIOS [facility] Start: 06-01-2023 End: 06-01-2023 Emergency department patient visit Oliva Rios MD Work Phone: [facility] ED Comment on above: Heel pain, bilateral (Primary Dx) Start: 04-20-2023 Non-patient / Non-visit [facility] Work Phone: [facility] Work Phone: Start: 04-19-2023 End: 04-20-2023 Evaluation and management of inpatient [facility] Work Phone: [facility]-Medical Surgical 3 Work Phone: Start: 04-19-2023 End: 04-20-2023 observation encounter [facility] Work Phone: [facility] Work Phone: Start: 10-06-2022 End: 10-06-2022 Emergency department patient visit [facility]-Emergency Department Start: 10-02-2022 End: 10-03-2022 Emergency department patient visit [facility]-Emergency Department Start: 10-02-2022 End: 10-02-2022 Emergency department patient visit [facility]-Emergency Department Start: 10-01-2022 End: 10-02-2022 Emergency department patient visit [facility]-Emergency Department Start: 09-25-2022 End: 09-26-2022 Emergency department patient visit [facility]-Emergency Department Start: 09-24-2022 End: 09-24-2022 Departed Referred [facility]-Emergency Department Start: 09-24-2022 End: 09-24-2022 Emergency department patient visit [facility]Emergency Department Start: 09-23-2022 End: 09-23-2022 Emergency department patient visit [facility]-Emergency Department Start: 03-06-2022 End: 03-06-2022 Emergency department patient visit [facility]-Emergency Department Start: 11-23-2021 End: 11-23-2021 Emergency department patient visit [facility]-Emergency Department Start: 11-09-2021 End: 11-09-2021 Patient encounter procedure [facility]-Laboratory Start: 09-21-2021 Telephone encounter Jos aparicio APRN.CNP Work Phone: [facility] Comment on above: Results Start: 09-20-2021 End: 09-20-2021 Subsequent hospital visit by physician Xr [facility] Work Phone: Radiology Comment on above: Acute midline low ba ck pain without sciatica [M54.50] Start: 09-18-2021 End: 09-18-2021 Patient encounter procedure Janelle Prabhakar PA-C Work Phone: [facility] Comment on above: Acute midline low [...] End: 07-07-2021 Subsequent hospital visit by physician Xr [facility] Work Phone: Radiology Comment on above: Mass of hand, right [R22.31] Procedures Date Procedure Procedure Detail Performing Clinician Start: 08-29-2024 Estimated creatinine clearance [facility] Work Phone: Start: 08-27-2024 Umbilical hernioplasty [facility] Work Phone: Start: 08-27-2024 Computed tomography of abdomen and pelvis with intravenous contrast [facility] Work Phone: Start: 08-27-2024 Estimated creatinine clearance [facility] Work Phone: Start: 07-04-2023 Dup-scan xtr veins unilateral/limited study Inocencia Storm PA-C Work Phone: Start: 04-19-2023 Plain chest X-ray [facility] Work Phone: Start: 04-19-2023 CT of head without contrast [facility] Work Phone: Start: 10-06-2022 CT of head without contrast Start: 10-01-2022 CT of head without contrast Start: 03-06-2022 X-ray of lumbar spin e, two or three views Start: 03-06-2022 CT cervical spine wi thout contrast Start: 03-06-2022 CT of head without contrast Start: 09-20-2021 Radex spine lumbosac ral 2/3 views Janelle Prabhakar PA-C Work Phone: Start: 08-30-2021 Adult depression scr eening assessment Janelle Prabhakar PA-C Work Phone: Start: 07-07-2021 Radex hand minimum 3 views Ramiro Bonilla MD Work Phone: Start: 08-06-2018 Lipid 1996 panel - S negrito or Plasma Daxa Norman APRN.OPERATIONS COORDINATOR Work Phone: Plan of Treatment Date Care Activity Detail Author Start: 09-24-2032 DTaP/Tdap/Td Vaccine s (2 - Td or Tdap) DTaP/Tdap/Td Vaccines (2 - Td or Tdap) [facility] Start: 09-24-2032 Urine microalbumin profile DTaP,Tdap,Td Vaccine (3 - Td or Tdap) [facility] Start: 2028 RSV Immunization age d 60 or older (1 - 1-dose 60+ series) RSV Immunization aged 60 or older (1 - 1-dose 60+ series) [facility] Start: 08-29-2024 Patient discharge [facility] Start: 08-29-2024 [facility] Start: 08-28-2024 Nil by mouth [facility] Start: 08-27-2024 Following clinical pathway protocol [facility] Start: 08-27-2024 Application of intermittent pneumatic compression device [facility] Start: 08-27-2024 Following clinical pathway protocol [facility] Start: 08-27-2024 Taking patient vital signs [facility] Start: 08-27-2024 [facility] Start: 08-27-2024 Admission procedure [facility] Start: 08-27-2024 Ambulation without limitation [facility] Start: 08-27-2024 Umbilical hernioplasty Hernia, Umbilical Repair w/ Mesh (Not Applicable) [facility] Start: 08-27-2024 Hospital admission, emergency, from emergency room, medical nature [facility] Start: 08-27-2024 [facility] Start: 08-27-2024 [facility] Start: 12-23-2023 Covid-19 Vaccine ( season) Covid-19 Vaccine ( season) [facility] Start: 12-23-2023 Influenza vaccination [facility] Start: 08-09-2023 End: 08-09-2023 ambulatory 08/09/2023 10:00 AM EDT Evaluation [facility] Therapy at [address] [place] [id number] Celina Bilss MD [address] [place] [address] [place] [id number] Alanna Mayberry, PT [facility] at [facility] Start: 08-07-2023 Lipid panel Lipid Screening [facility] Start: 08-07-2023 LIPID SCREEN LIPID SCREEN [facility] Start: 08-02-2023 End: 08-01-2024 XR Lumbar spine Views W flexion and W extension XR lumbar spine 4-5 view Imaging Routine Lumbar pain Expected: 08/02/2023, Expires: 08/01/2024 [facility] Work Phone: Comment on above: Expected: 08/02/2023 , Expires: 08/01/2024 Start: 04-23-2023 Behavioral Health Screening Behavioral Health Screening [facility] Start: 04-20-2023 Patient discharge [facility] Start: 04-20-2023 Admission procedure [facility] Start: 04-20-2023 Referral to service [facility] Start: 04-19-2023 Following clinical pathway protocol [facility] Start: 04-19-2023 Aspiration precautions [facility] Start: 04-19-2023 Assessment of risk o f venous thromboembolism [facility] Start: 04-19-2023 Fall prevention [facility] Start: 04-19-2023 Incentive spirometry [facility] Start: 04-19-2023 Inhalation therapy procedure [facility] Start: 04-19-2023 Insertion of cathete r into peripheral vein [facility] Start: 04-19-2023 Introduction of urin tutu catheter [facility] Start: 04-19-2023 Measuring intake and output [facility] Start: 04-19-2023 Oxygen therapy [facility] Start: 04-19-2023 Providing care accor ding to standard [facility] Start: 04-19-2023 Provision of activit y privileges [facility] Start: 04-19-2023 Referral to service [facility] Start: 04-19-2023 Tobacco use cessatio n education [facility] Start: 04-19-2023 [facility] Start: 04-19-2023 Admission procedure [facility] Start: 2023 Prostate specific an tigen measurement Prostate Cancer Screening Discussion [facility] Start: 12-22-2022 COVID-19 Vaccine () COVID-19 Vaccine () [facility] Start: 12-22-2022 Influenza vaccination Influenza Vacc ine (#1) [facility] Start: 10-02-2022 Suicide precautions [facility] Start: 10-02-2022 Referral to service [facility] Start: 10-02-2022 Suicide precautions [facility] Start: 10-02-2022 Blood count complete auto&auto difrntl wbc COMPLETE CBC W/AUTO DIFF WBC [facility] Start: 10-02-2022 Comprehensive metabo lic panel COMPREHEN METABOLIC PANEL [facility] Start: 10-02-2022 Drug screen quantita tive alcohols DRUG SCREEN QUANTALCOHOLS [facility] Start: 10-02-2022 Drug tst prsmv instr mnt chem analyzers pr date DRUG TEST PRSMV CHEM ANLYZR [facility] Start: 10-02-2022 Smpl repair scalp/neck/ax/genit/trunk 2.6-7.5cm RPR S/N/AX/GEN/TRNK2.6-7.5C M [facility] Start: 10-01-2022 Assay of troponin quantitative ASSAY OF TROPONIN QUANT [facility] Start: 10-01-2022 Ct head/brain w/o contrast material CT HEAD/BRAIN W/O DYE [facility] Start: 10-01-2022 Tdap vaccine 7 yrs/> im TDAP VACCINE 7 YRS/> IM [facility] Start: 10-01-2022 Urnls dip stick/tabl et reagent auto microscopy URINALYSIS AUTO W/SCOPE [facility] Start: 09-25-2022 Suicide precautions [facility] Start: 09-24-2022 Referral to service [facility] Start: 09-24-2022 Suicide precautions [facility] Start: 09-23-2022 Blood chemistry [facility] Start: 08-30-2022 Adult depression screening assessment DEPRESSION SCREENING [facility] Start: 12-22-2021 Influenza vaccination INFLUENZ A (Season Ended) [facility] Start: 08-06-2021 [facility]AB[facility] Start: 08-06-2021 Diabetes Screening Diabetes Screenin g [facility] Start: 12-22-2020 Influenza vaccination INFLUENZA (#1) [facility] Start: 2018 SHINGRIX VACCINE (1 of 2) SCOTT GRIX VACCINE (1 of 2) [facility] Start: 2018 Zoster Vaccines (1 of 2) Zoste r Vaccines (1 of 2) [facility] Start: 2013 COLOGUARD (FIT-DNA) COLOGUARD (FIT-D NA) [facility] Start: 2013 Colonoscopy COLONOSCOPY [facility] Start: 2013 COLORECTAL CANCER SCREENING COLORECTAL CANCER SCREENING [facility] Start: [address] COLONOGRAPHY [facility] Start: 2013 FECAL OCCULT BLOOD FECAL OCCULT BLOO D [facility] Start: 2013 Screening for malign ant neoplasm of colon [facility] Start: 2013 SIGMOIDOSCOPY SIGMOIDOSCOPY [facility] Start: 1987 Hepatitis B Vaccine (1 of 3 - 19+ 3-dose series) Hepatitis B Vaccine (1 of 3 - 19+ 3-dose series) [facility] Start: 1987 Hepatitis B Vaccines (1 of 3 - 19+ 3-dose series) Hepatitis B Vaccines (1 of 3 - 19+ 3-dose series) [facility] Start: 1987 Urine microalbumin profile DTAP,TDAP,TD (1 - Tdap) [facility] Start: 1986 Depression Screening Depression Scre ening [facility] Start: 1986 Diabetes mellitus screening Diabetes Screening [facility] Start: 1986 HEPATITIS C SCREENING HEPATITIS C [facility] Start: 1986 Hepatitis C screening Hepatitis C [facility] Start: 1986 HIV SCREENING HIV SCREENING [facility] Start: 1980 Adult depression screening assessment DEPRESSION SCREENING [facility] Start: 1973 COVID-19 VACCINE (#1) COVID-19 VACCI NE (#1) [facility] Start: 1973 COVID-19 VACCINE (1) COVID-19 VACCIN E (1) [facility] Start: 1969 MMR Vaccines (1 of 1 - Standard series) MMR Vaccines (1 of 1 - Standard series) [facility] Start: 1968 COVID-19 Vaccine (#1) COVID-19 Vacci ne (#1) [facility] Start: 1968 Hepatitis B Vaccines (1 of 3 - 3-dose series) Hepatitis B Vaccines (1 of 3 - 3-dose series) [facility] Start: 1968 HIV screening HIV Screening [facility] Start: 1968 Lipid panel Lipid Panel [facility] Start: 1970 Screening for malign ant neoplasm of colon [facility] Amphetamine [Mass/vo lume] in Urine [facility] Anion gap measurement [facility] Benzodiazepine measurement, urine [facility] BUN/Creatinine ratio [facility] Calcium [Mass/volume ] in Serum or Plasma [facility] Carbon dioxide, tota l [Moles/volume] in Serum or Plasma [facility] Chloride [Moles/volu me] in Serum or Plasma [facility] Cocaine measurement, urine [facility] Creatinine [Moles/vo lume] in Serum or Plasma [facility] Ethanol [Mass/volume ] in Serum or Plasma [facility] Glucose [Mass/volume ] in Serum or Plasma [facility] Hematocrit [Volume Fraction] of Blood [facility] Hemoglobin [Mass/vol ume] in Blood [facility] Leukocytes [#/volume ] in Blood [facility] Mean corpuscular hemoglobin concentration determination [facility] Mean corpuscular hemoglobin determination [facility] Measurement of 3,4-methylenedioxymethamp hetamine in urine [facility] Measurement of renal function [facility] Methadone measuremen t, urine [facility] Neutrophil count [facility] Neutrophil percent differential count [facility] OUTSIDE PROCEDURE SCAN OUTSIDE P ROCEDURE SCAN Procedures Ordered: 06/14/2023 [facility] Comment on above: Ordered: 06/14/2023 Patient Education [facility] Work Phone: Patient referral [facility] Work Phone: pH of Urine [facility] Phencyclidine [Prese nce] in Urine [facility] Platelets [#/volume] in Blood [facility] Potassium [Moles/vol ume] in Serum or Plasma [facility] End: 10-18-2022 [facility]ade[facility] spine lumbosacral 2/3 views XR LUMBAR GENERAL 3V AP/LAT/L5-S1 Radiology STAT Acute midline low back pain without sciatica 1 Occurrences starting 09/18/2021 until 10/18/2022 [facility] Work Phone: Comment on above: 1 Occurrences starti ng 09/18/2021 until 10/18/2022 Red blood cell count [facility] Red cell distributio n width determination [facility] SARS-CoV-2 (COVID-19 ) Ag [Presence] in Respiratory specimen by Rapid immunoassay [facility] Sodium [Moles/volume ] in Serum or Plasma [facility] Urea nitrogen [Mass/volume] in Serum or Plasma [facility] Urine barbiturate measurement [facility] Urine cannabinoid measurement [facility] Urine opiate measurement [facility] End: 06-14-2023 XR Foot - bilateral 3 Views [facility] [employer] Work Phone: Comment on above: Once for 1 Occurrenc es starting 06/14/2023 until 06/14/2023 End: 08-03-2023 XR Lumbar spine Views W flexion and W extension [facility] [employer] Comment on above: Once for 1 Occurrenc es starting 08/03/2023 until 08/03/2023 [facility] Immunizations Immunization Date Immunization Notes Care Provider Bernardo ferguson 09-24-2022 tetanus toxoid, redu eileen diphtheria toxoid, and acellular pertussis vaccine, adsorbed [facility] 01-15-2019 influenza virus vaccine, unspecified formulation Daxa Norman APRN.CNP Work Phone: [facility] Payers Date Payer Category Payer Self-pay [id number] 2021 Medicaid [employer] [id number] 2021-Present [phone] [address] [place] [address] Medicaid [id number] 2021 Medicaid [id number] 2021 Unknown [id number] 1970 Unknown [id number] Unknown [id number] Unknown VA AUTH REQUIRED SEE NOTE* * [id number] Unknown [id number] Unknown [id number] Unknown [id number] Unknown [id number] Unknown [id number] Unknown [id number] Social History Date Type Detail Facility Start: 05-17-2021 End: 10-16-2023 Tobacco smoking status NHIS Never smoked tobacco [facility] Start: 05-17-2021 End: 10-16-2023 Tobacco use and exposure Smokeless tobacco non-user [facility] Start: 07-07-2021 End: 08-01-2021 History SDOH Alcohol Frequency 1 [facility] Start: 07-07-2021 History SDOH Alcohol Std Drinks 98 [facility] Start: 07-07-2021 History SDOH Social Connections Adventism 3 [facility] Start: 07-07-2021 History SDOH Social Connections Membership 2 [facility] Start: 07-07-2021 History SDOH Stress 5 [facility] Start: 1970 Sex Assigned At Male [facility] Start: 06-26-2021 End: 09-18-2021 Exposure to SARS-CoV-2 (event) Not sure [facility] Start: 08-02-2021 End: 09-18-2021 Alcohol intake Lifetime non-drinker (finding) [facility] Start: 11-23-2021 End: 04-19-2023 Tobacco smoking status NHIS Unknown if ever smoked [facility] Start: 1970 Sex Assigned At Not on file [facility] [employer] Start: 09-08-2021 End: 06-01-2023 Gender identity Not on file [facility] Start: 09-08-2021 End: 06-01-2023 History of Social function [facility] How often to you hav e a drink containing alcohol? Never [facility] How many standard dr inks containing alcohol do you have on a typical day? Patient does not drink [facility] Do you belong to any clubs or organizations such as jehovah's witness groups, unions, [employer] or athletic groups, or school groups? No [facility] Do you feel stress - tense, restless, nervous, or anxious, or unable to sleep at night because your mind is troubled all the time - these days [OSQ] Very much [facility] Start: 06-21-2021 Gender identity Identifies as male gender (finding) [facility] Start: 07-10-2021 Sexual orientation Heterosexual (finding) [facility] Start: 08-27-2024 Tobacco smoking status NHIS Current some day smoker [facility] Medical Equipment Procedure Code Equipment Code [...] Facility 08-29-2024 Functional status Ambulates;Up ad nita [facility] Work Phone: 04-20-2023 Functional status Ambulates [facility] Work Phone: Mental Status Date Assessment Result Facility 08-29-2024 Cognitive function Voice/Name [facility] Work Phone: 04-20-2023 Cognitive function Voice/Name [facility] Work Phone: 10-06-2022 Cognitive function Voice/Name [facility] Work Phone: 10-02-2022 Cognitive function Level Of Cons ciousness Follows Commands;Drowsy [facility] Work Phone: 03-06-2022 Cognitive function Level Of Cons ciousness Awake;Alert;Appropriate;Follow s Commands [facility] Work Phone: Clinical Notes 05-17-2021 to 08-29-2024 Note Date & Type Note Facility 08-29-2024 Consult note [facility] 08-29-2024 Consult note [facility] 08-29-2024 Consult note [facility] 08-29-2024 Discharge summary Note Date/Time August 29, 2024 9:37am [facility] Medical Records Department [address] [place] [address] Discharge Summary 08/29/24 0934 MR#: [id number] Acct: [id number] Name: MIKE HATCH Rep #:[id number] : 1970 54 From: Demetrius irving MD PCP: [facility] St atus:ADM IN Location: [facility] [id number] Providers Date of Admission: 08/27/24 Primary Care Physician: [facility] Reason For Visit: INCARCERATED HERNIA Diagnosis Discharge Diagnosis (1) Incarcerated umbilical hernia: Status: Acute Code(s): K42.0 - Umbilical hernia with obstruction, without gangrene Plan: Patient is postoperative day 2 from a small bowel resection for an incarcerated umbilical hernia. I will advance him to clear liquids today and advance as tolerated. Demetrius Hernández MD Pager: [facility] [address] [place] [address], [address] [place] [phone] Office: Medications at Discharge Home Medications brexpiprazole 2 mg tablet (Rexulti) 2 mg PO DAILY 11/23/21 fluoxetine 40 mg capsule 80 cap PO DAILY 11/23/21 methylphenidate HCl 20 mg tablet (Ritalin) 20 tab PO TID 11/23/21 cholecalciferol (vitamin D3) 50 mcg (2,000 unit) capsule (Vitamin D3) 50 mcg PO DAILY 10/02/22 omega 4-rxl-xid-fish oil 1,000 mg (120 mg-180 mg) capsule [...] % (Auto) 67.0, Lymph % (Auto) 24.6, Morrow % (Auto) 6.6, Eos % (Auto) 0.9, [...] to schedule 1 week follow up appointment. [phone] Meaningful Use Info Meaningful Use Meaningful Use [...] Attending Provider: Demetrius Hernández [facility] Orders/Prescriptions Prescriptions: New oxycodone 5 mg [...] unit) Capsule 50 mcg PO DAILY omega 4-rpq-vet-fish oil 1,000 mg (120 mg-180 mg) capsule 1 cap PO BID Patient Comments: s/o unsure if pt. was getting in [facility] zolpidem 10 mg tablet 10 mg PO QPM Referrals / Follow Up: [facility] [Primary Care Provider] - Disposition Disposition (needs filled in before D/C Order can be placed): Home, Self Care 08/29/24936 <Electronically signed by Demetrius Hernández MD> Cosigner Signature (if applicable): CC: Dr. Demetrius Hernández MD; [facility]~ Signed [facility] Work Phone: 1(855) 701-522405-09-2025 Progress note Author Demetrius Hernández [facility] Note Date/Time August 29, 2024 9:33am [facility] Medical Records Department [address] [place] [address] Progress Note - Surgery 08/29/24 0932 MR#: [id number] Acct: [id number] Name: MIKE HATCH Rep #:[id number] : 1970 54 From: Demetrius irving MD PCP: [facility] St atus:ADM IN Location: [place]3 [id number] Subjective Subjective Patient was very agitated this morning. He is concerned that he did not get hispsych meds yesterday. He would like to have a diet and go home today. Objective Data Objective Data Vital Signs: Vital Signs Temp Pulse Resp BP Pulse Ox O2 Del Method O2 Flow Rate 98.0 F 62 16 138/70 H 97 Room Air 2 05/09/25 08:44 08/29/24 08:44 08/29/24 08:44 08/29/24 08:44 [...] % (Auto) 67.0, Lymph % (Auto) 24.6, Morrow % (Auto) 6.6, Eos % (Auto) 0.9, [...] advance as tolerated. Demetrius Hernández MD Pager: [facility] [address] [facility] [address] [place] [address] Office: 08/29/24 0933 <Electronically signed by Demetrius Hernández MD> Cosigner Signature (if applicable): CC: ~ Signed [facility] Work Phone: 1(132) 462-198105-09-2025 Discharge summary [facility] Medical Records Department [address] [place] [address] Discharge Summary 08/29/24 0934 MR#: [id number] Acct: [id number] Name: MIKE HATHC Rep #:[id number] : 1970 54 From: Demetrius irving MD PCP: [facility] atus:ADM IN Location: [place] [address] Providers Date of Admission: 08/27/24 Primary Care Physician: [facility] Reason For Visit: INCARCERATED HERNIA Diagnosis Discharge Diagnosis (1) Incarcerated umbilical hernia: Status: Acute Code(s): K42.0 - Umbilical hernia with obstruction, without gangrene Plan: Patient is postoperative day 2 from a small bowel resection for an incarcerated umbilical hernia. Iwill advance him to clear liquids today and advance as tolerated. Demetrius Hernández MD Pager: [facility] [address] [place] [address] [facility] [place], [address] [place] [address] Office: Medications at Discharge Home Medications brexpiprazole 2 mg tablet (Rexulti) 2 mg PO DAILY 11/23/21 fluoxetine 40 mg capsule 80 cap PO DAILY 11/23/21 methylphenidate HCl 20 mg tablet (Ritalin) 20 tab PO TID 11/23/21 cholecalciferol (vitamin D3) 50 mcg (2,000 unit) capsule (Vitamin D3) 50 mcg PO DAILY 10/02/22 omega 7-qcp-yvi-fish oil 1,000 mg (120 mg-180 mg) capsule [...] % (Auto) 67.0, Lymph % (Auto) 24.6, Morrow % (Auto) 6.6, Eos % (Auto) 0.9, [...] to schedule 1 week follow up appointment. [phone] Meaningful Use Info Meaningful Use Meaningful Use [...] Attending Provider: Demetrius Hernández Primary Care Provider: [facility] Aimee Small Discharge Orders/Prescriptions Prescriptions: New oxycodone 5 mg [...] unit) Capsule 50 mcg PO DAILY omega 6-xld-dws-fish oil 1,000 mg (120 mg-180 mg) capsule 1 cap PO BID Patient Comments: s/o unsure if pt. was getting in [facility] zolpidem 10 mg tablet 10 mg PO QPM [facility] - Disposition Disposition (needs filled in before D/C Order can be placed): Home, Self Care 08/29/24936 Cosigner Signature (if applicable): CC: Dr. Demetrius Hernández MD; [facility]~ Signed [facility]05-09-2025 [facility] Medical Records Department [address] [place] [address] Discharge Summary 08/29/24933 MR#: [id number] Acct: [id number] Name: MIKE HATCH Rep #: [id number] : 1970 54 From: Demetrius Hernández MD PCP: [facility] Status:ADM IN Location: [facility] [id number] Providers Date of Admission: 08/27/24 Primary Care Physician: [facility] Reason For Visit: INCARCERATED HERNIA Diagnosis Discharge Diagnosis (1) Incarcerated umbilical hernia: Status: Acute Code(s): K42.0 - Umbilical hernia with obstruction, without gangrene Plan: Patient is postoperative day 2 from a small bowel resection for an incarcerated umbilical hernia. I will advance him to clear liquids today and advance as tolerated. Demetrius Hernández MD Pager: [facility] [address] [place] [address], [address] [place] [address] Office: Medications at Discharge Home Medications brexpiprazole 2 mg tablet (Rexulti) 2 mg PO DAILY 11/23/21 fluoxetine 40 mg capsule 80 cap PO DAILY 11/23/21 methylphenidate HCl 20 mg tablet (Ritalin) 20 tab PO TID 11/23/21 cholecalciferol (vitamin D3) 50 mcg (2,000 unit) capsule (Vitamin D3) 50 mcg PO DAILY 10/02/22 omega 0-szv-xfh-fish oil 1,000 mg (120 mg-180 mg) capsule [...] % (Auto) 67.0, Lymph % (Auto) 24.6, Morrow % (Auto) 6.6, Eos % (Auto) 0.9, [...] to schedule 1 week follow up appointment. [phone] Meaningful Use Info Meaningful Use Meaningful Use [...] Attending Provider: Demetrius Hernández Primary Care Provider: [facility] Discharge Orders/Prescriptions Prescriptions: New oxycodone 5 mg [...] PO TID Patient Comments: (more content not included)...[facility] 08-29-2024 Progress note [facility] Medical Records Department [address] [place] [address] Progress Note - Surgery 08/29/24 0932 MR#: [id number] Acct: [id number] Name: MIKE HATCH Rep #:[id number] : 1970 54 From: Demetrius irving MD PCP: [facility] St atus:ADM IN Location: MS3 [id number] Subjective Subjective Patient was very agitated this [...] % (Auto) 67.0, Lymph % (Auto) 24.6, Morrow % (Auto) 6.6, Eos % (Auto) 0.9, [...] advance as tolerated. Demetrius Hernández MD Pager: [facility] [address] [facility], [address] [place] [address] Office: 08/29/24 0994 Cosigner Signature (if applicable): CC: ~ Signed [facility]05-08-2025 Progress note Author Demetrius Hernández [facility] Note Date/Time August 28, 2024 6:47am [facility] Medical Records Department [address] [place] [address] Progress Note - Surgery 08/28/2446 MR#: [id number] Acct: [id number] Name: MIKE HATCH Rep #:[id number] : 1970 54 From: Demetrius irving MD PCP: [facility] atus:ADM IN [facility] Subjective Subjective Patient is comfortable. He is [...] 74.4 H, Lymph % (Auto) 18.7 L, Morrow % (Auto) 5.3, Eos % (Auto) 0.4, [...] 5. Additional description as above. Reading Location: [facility] Physical Exam Const oriented x3 and no apparent distress Resp normal respiratory effort GI soft to palpation Palpation: tender Assessment & Plan Assessment/Plan (1) Incarcerated umbilical hernia: PLAN: Patient is postoperative day 1 from incarcerated umbilical hernia with bowel resection. He is still not passing any flatus. Continue n.p.o. with sipsand chips. Await bowel function. Labs pending. Demetrius Hernández MD Pager: [facility] [address] [facility], [address] [place] [address] Office: 08/28/24 0647 <Electronically signed by Demetrius Hernández MD> Cosigner Signature (if applicable): CC: ~ Signed [facility] Work Phone: 1(275) 101-300405-08-2025 Progress note [facility] Medical Records Department [address] [place] [address] Progress Note - Surgery 08/28/24 0646 MR#: [id number] Acct: [id number] Name: MIKE HATCH Rep #:[id number] : 1970 54 From: Demetrius irving MD PCP: [facility] atus:ADM IN Location: [facility] [id number] Subjective Subjective Patient is comfortable. He is [...] 74.4 H, Lymph % (Auto) 18.7 L, Morrow % (Auto) 5.3, Eos % (Auto) 0.4, [...] 5. Additional description as above. Reading Location: [facility] Physical Exam Const oriented x3 and no apparent distress Resp normal respiratory effort GI soft to palpation Palpation: tender Assessment & Plan Assessment/Plan (1) Incarcerated umbilical hernia: PLAN: Patient is postoperative day 1 from incarcerated umbilical hernia with bowel resection. He isstill not passing any flatus. Continue n.p.o. with sipsand chips. Await bowel function. Labs pending. Demetrius Hernández MD Pager: [facility] [address] [facility], [address] [place] [address] Office: 08/28/24 0676 Cosigner Signature (if applicable): CC: ~ Signed [facility]05-07-2025 Consult note Author Ashutosh Wilkerson [facility] Note Date/Time August 29, 2024 3:35pm [facility] Medical Records Department [address] [place] [address] Anesthesia Postop Eval II 08/27/24 1700 MR#: [id number] Acct: [id number] Name: IMKE HATCH Rep #:[id number] : 1970 54 From: Ashutosh Wilkerson MD PCP: [facility] St atus:REG SDC Y Race: C Location: [place] [address] Anesthesia Postop Eval I Sum Postop Eval Completion status Anesthesia document: Postop Eval 1 completed: Yes Anesthesia Postop Eval I Summary Anesthesia Postop Eval I Summary: Anesthesia Postop Eval I: Assessment Summary Airway patent Yes 08/27/24 16:39 REVIEW CONSULTANT.CSIR Spontaneous unlabored Yes 08/27/24 16:39 REVIEW CONSULTANT.CSIR respirations Mental status nausea No 08/27/24 16:39 REVIEW CONSULTANT.CSIR Vomiting No 08/27/24 16:39 REVIEW CONSULTANT.CSIR Anesthesia Postop Eval I: Fluid Summary Crystalloid volume administer 1,200 08/27/24 16:39 REVIEW CONSULTANT.CSIR (ml) Colloids volume administered ( ml) Blood Product volume administered (ml) Total IV fluid infused 1,200 08/27/24 16:39 REVIEW CONSULTANT.CSIR Anesthesia Postop Eval I: Summary Notes Anesthesia Complication No 08/27/24 16:39 REVIEW CONSULTANT.CSIR Anesthesia Complication Comment: Post-operative progress note Anesthesia: Postop Eval II Evaluation Mental status: Awake Pain Level: 0 nausea: No Vomiting: No Complications Anesthesia Complication: No 08/27/24 1700 <Electronically signed by Ashutosh Wilkerson MD> Date _ Ashutosh Wilkerson MD Cosigner Signature: Date CC: ~ Signed [facility] Work Phone: 1(955) 142-138305-07-2025 Consult note Author Alva Walker [facility] Note Date/Time August 29, 2024 3:35pm [facility] Medical Records Department [address] [place] [address] Anesthesia Postop Eval I 08/27/241638 MR#: [id number] Acct: [id number] Name: MIKE HATCH Rep #:[id number] : 1970 54 From: Alva Walker PCP: [facility] St atus:[facility] SD Y Race: C Location: [place] [address] Anesthesia: Postop Eval I Current Vital Signs Temperature: 97 F Pulse Rate: 65 Blood Pressure: 128/57 Respiratory Rate: 20 Pulse Ox: 94 Assessment Airway patent: Yes Spontaneous unlabored respirations: Yes nausea: No Vomiting: No Anesthesia Complication: No Fluid Hydration Crystalloid volume administer (ml): 1,200 Total IV fluid infused: 1,200 Progress Note Anesthesia document: Postop Eval 1 completed: Yes 08/27/241638 <Electronically signed by Alva oliver> Date _ Alva Walker Cosigner Signature: Date CC: ~ Signed [facility] Work Phone: 1(947) 547-476905-07-2025 Evaluation note* Diagnosis Onset Date Resolution Status Admit Date Incarcerated umbilical hernia acute August 27, 2024 4:18pm [facility] Work Phone: 1(214) 195-158305-07-2025 Evaluation note* Diagnosis Onset Date Resolution Status Admit Date Incarcerated umbilical hernia resolv ed August 27, 2024 4:18pm [facility] Work Phone: 1(708) 267-586605-07-2025 Discharge summary Author Isis De Jesus [facility] Note Date/Time August 27, 2024 2:41pm [facility] Medical Records Department [address] [place] [address] Emergency Department Summary 08/27/24 MR#: [id number] Acct: [id number] Name: MIKE HATCH Rep #:[id number] : 1970 54 From: Isis Mccormick PCP: [facility] St atus:[facility] Location: [facility] A-2 HPI HPI - GI History [...] this time. Denies any abdominal surgical history. [facility] Medical History Nicotine vapor product user Anxiety [...] mcg (2,000 unit) capsule (Vitamin D3) omega 6-hts-xge-fish oil 1,000 mg 1 cap PO BID [...] 74.4 H Lymph % (Auto) 18.7 L Morrow % (Auto) 5.3 Eos % (Auto) 0.4 [...] 5. Additional description as above. Reading Location: [id number] Management Discussion w/another healthcare provider: [employer] Discharge Plan Dx/Rx/DC Orders Clinical Impression: Incarcerated umbilical hernia, Leukocytosis, Elevated lactic acid level Disposition Disposition: Acute Care Hospital [facility] Discharge Date/Time: 08/27/24 13:36 What to do if you have Problems For any increased pain, shortness of breath, bleeding, nausea or vomiting, chestpain, or any unexpected problems, contact your Primary Care Provider. Call [facility] ([phone]) or report to the closest Emergency Room. Call 911 if necessary. 08/27/24 1441 <Electronically signed by Isis De Jesus DO> Cosigner Signature (if applicable): CC: [facility] ~ Signed [facility] Work Phone: 1(272) 389-999705-07-2025 Procedure note [facility] Medical Records Department [address] [place] [address] Operative Report 08/27/24 1611 MR#: [id number] Acct: [id number] Name: MIKE HATCH Rep #:[id number] : 1970 54 From: Demetrius irving MD PCP: [facility] St atus:[facility] Location: [place] [id number] Operative Report (Standard) Operative Information Date of Procedure: 08/27/24 Pre-Operative Diagnosis: Incarcerated umbilical hernia Post-Operative Diagnosis: Incarcerated umbilical hernia with small bowel necrosis Surgery/Procedure Performed: Umbilical hernia repair with small bowel resection automatic developer: Yes Corporate Compliance Officer: Camilo Mustafa Tasks completed by first front ventilator: Opening and Closing Type of Anesthesia: General/Regional [...] to the smal l bowel in a wwbe-bp-reur functional end to end fashion. The staple [...] Next the fascia was closed using interrupted xvqvyo-fi-cdyuf 0 PDS sutures. The subcutaneous tissue was irrigated and suctioned dry and closed with interrupted 3-0 Vicryl sutures and interrupted 4- 0Monocryl sutures. Steri-Strips and bandages were applied. Local anesthesia wasinjected. Patient was taken to PACU in stable condition and tolerated the procedure well. Surgical Findings: Incarcerated umbilical hernia with strangulation Complications Complications: No Admit VTE Documentation VTE Mechan Device Prophylaxis: SCD's 08/27/24 7851 Cosigner Signature (if applicable): CC: Dr. Demetrius Hernández MD; [facility]~ Signed [facility]05-07-2025 Consult note Author Ashutosh Wilkerson [facility] Note Date/Time August 27, 2024 2:12pm [facility] Medical Records Department [address] [place] [address] Pre-Anesthesia Evaluation 08/27/24 1406 MR#: [id number] Acct: [id number] Name: MIKE HATCH Rep #:[id number] : 1970 54 From: Ashutosh Wilkerson MD PCP: 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 Female HX of Motion Sickness HX of N/V After Surgery Non-Smoker Duration of Surgery greater than 60 minutes Number of Risk Factors PONV Score Height & Weight Height & Weight: Anesthesia: Height & Weight Height 5 ft 10 in 08/27/24 10:21 Weight: 107 kg 08/27/24 10:21 Body Mass Index (BMI) 33.8 08/27/24 10:21 Respiratory Assessment Respiratory Assessment - 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: Respiratory Tract Infection Hx - 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 Hx Respiratory Tract Infection STOP Sleep Apnea STOP Sleep Apnea - 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: STOP Sleep Apnea - 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 Hx Hypertension No 11/14/23 14:49 Hx Sleep [...] Tobacco Use History Tobacco Use 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 Specify any problems Hx of Preganancy in last 3 Months Nurse Filling Out Transfusion & Questions: Date: Time: Patient unable to answer at this time (ie. confused, unrespo /Reproduction History /Reproductive History - 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: /Reproductive Hx- 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 Hx Now Gestational Age (in weeks): EDC: [...] mcg (2,000 unit) capsule (Vitamin D3) omega 0-zav-lpi-fish oil 1,000 mg 1 cap PO BID [...] MD Cosigner Signature: Date CC: ~ Signed [facility] Work Phone: 1(925) 840-487305-07-2025 History and physical note Author Demetrius Hernández [facility] Note Date/Time August 27, 2024 1:02pm [facility] Medical Records Department [address] [place] [address] H&P Exam - Surgical 08/27/24 1259 MR#: [id number] Acct: [id number] Name: MIKE HATCH Rep #:[id number] : 1970 54 From: Demetrius irving MD PCP: [facility] atus:REG ER Location: ED HPI - General HPI Narrative MIKE HATCH, is a 54 M who presents with painful umbilical hernia. The patientreports that he has had an umbilical hernia for years but something more popped out yesterday during a coughing fit and has been very painful ever since. Patient reports nausea as well as vomiting. He denies fevers or chills. [facility] Medical History Nicotine vapor product user [...] mcg (2,000 unit) capsule (Vitamin D3) omega 5-guc-dpu-fish oil 1,000 mg 1 cap PO BID [...] 74.4 H, Lymph % (Auto) 18.7 L, Morrow % (Auto) 5.3, Eos % (Auto) 0.4, [...] 5. Additional description as above. Reading Location: [id number] Assessment & Plan Assessment/Plan (1) Incarcerated umbilical [...] be placed safely. Demetrius Hernández MD Pager: [facility] [address] [facility], [address] [place] [address] Office: 08/27/24 1302 <Electronically signed by Demetrius Hernández MD> Cosigner Signature (if applicable): CC: Dr. Demetrius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 Jeanette Tripathi [facility] Consulting Providers: Helen Villa Instructions Patient Instructions: [...] unit) Capsule 50 mcg PO DAILY omega 4-bxt-bjv-fish oil 1,000 mg (120 mg-180 mg) capsule 1 cap PO BID Patient Comments: s/o unsure if pt. was getting in [facility] Discontinued zolpidem [Ambien] 10 mg tablet 10 tab PO QHS Patient Comments: TAKE 1 TABLET BY MOUTH EVERY EVENING for insomnia. Referrals / Follow Up: Moises Ashraf DO [Med Staff - Database Marketing Specialist] - Within 1 Month (Call for an appointment to see the psychiatrist after you have completed your alcohol rehabilitation program at [facility]) [facility] [place] [Primary Care Provider] - Within 1 Month Disposition Disposition (needs filled in before D/C Order can be placed): Home, Self Care Charges/Coding Visit Charges Inpatient E&M: 73639 Disch Hosp 04/20/23 1201 <Electronically signed by Jeanette Tripathi DO> Cosigner Signature (if applicable): CC: Dr. Jeanette Tripathi DO; [facility]~ Signed [facility] Work Phone: Evaluation note* Diagnosis Combined [...] of senile cataract [facility]* Diagnosis Status post cataract extraction and insertion of intraocular lens of right eye- Primary Status post cataract extraction and insertion of intraocular lens of left eye documented in this encounter [facility] note* Diagnosis Acute midline low back pain without sciatica- Primary documented in this encounter [facility] noteNo assessment information availableWMemorial Health [facility] Work Phone: Evaluation note* Diagnosis Onset Date Resolution Status Laceration of left forearm a cute [facility] Work Phone: Evaluation note* Diagnosis Onset Date Resolution Status Acute confusion acute Acute kidney injury acute Altered level of consciousness acute History of alcohol abuse acu te [facility] Work Phone: Evaluation note* Diagnosis Heel pain, bilateral- Primary documented in this encounter [facility] note* Diagnosis Calcaneal spur, right foot Calcaneal spur, left foot Pain in right foot Pain in soft tissues of limb Pain in left foot Pain in soft tissues of limb documented in this encounter [facility] note* Diagnosis Lumbar pain- Primary Lumbago DDD (degenerative disc disease), lumbar Degeneration of lumbar or lumbosacral intervertebral disc Lumbar radiculitis documented in this encounter [facility] note* Diagnosis Lumbar pain Lumbago documented in this encounter [facility] note* Diagnosis Calcaneal spur, right foot- Primary Calcaneal spur, left foot Pain in right foot Pain in soft tissues of limb Pain in left foot Pain in soft tissues of limb Calcaneal spur, right foot Calcaneal spur, left foot Pain in right foot Pain in soft tissues of limb Pain in left foot Pain in soft tissues of limb documented in this encounter [facility] note* Diagnosis Cellulitis of hand- Primary Cellulitis and abscess of hand, except fingers and thumb Infected wound Posttraumatic wound infection not elsewhere classified documented in this encounter [facility] note* Diagnosis Mass of hand, right documented in this encounter [facility] note* Diagnosis Acute midline low back pain without sciatica documented in this encounter [facility] note* Diagnosis Onset Date Resolution Status Admit Date Incarcerated umbilical hernia acute August 27, 2024 1:27pm [facility] Work Phone: History and physical note Author Demetrius Hernández [facility] Note Date/Time August 27, 2024 1:02pm [facility] Medical Records Department [address] [place] [address] H&P Exam - Surgical 08/27/24 1259 MR#: [id number] Acct: [id number] Name: MIKE HATCH Rep #:[id number] : 1970 54 From: Demetrius irving MD [facility]CP: [facility] St atus:REG ER Location: ED [...] as vomiting. He denies fevers or chills. [facility] Medical History Nicotine vapor product user [...] mcg (2,000 unit) capsule (Vitamin D3) omega 9-wfq-mdu-fish oil 1,000 mg 1 cap PO BID [...] 74.4 H, Lymph % (Auto) 18.7 L, Morrow % (Auto) 5.3, Eos % (Auto) 0.4, [...] 5. Additional description as above. Reading Location: [id number] Assessment & Plan Assessment/Plan (1) Incarcerated umbilical [...] be placed safely. Demetrius Hernández MD Pager: [facility] [address] [place] [address], [address] [place] [phone] Office: 08/27/24 1302 <Electronically signed by Demetrius Hernández MD> Cosigner Signature (if applicable): CC: Dr. Demetrius Hernández MD; [facility]~ Signed [facility] Work Phone: Hospital Discharge instructions Additional [...] from emergency room standpoint for placement in [facility] Work Phone: Reason for referral (narrative)* Diagnostic Procedure Only (Urgent) - Pending Review Specialty Diagnoses / Procedures Referred By Contac t Referred To Contact XR IMAGING Diagnoses Acute midline low back pain without sciatica Procedures XR LUMBAR GENERAL 3V AP/LAT/L5-S1 RADEX SPINE LUMBOSACRAL 2/3 VIEWS Janelle Prabhakar PA-C [address] [place] [address] Xr Imaging Referral ID Status Reason Start Date Expiration Date Visits Requested Visits Authorized [id number] Pending Review Auto-Generat ed Referral 09/18/2021 10/18/2022 1 1 [facility] for referral (narrative)* Diagnostic Procedure Only (Routine) - Closed Specialty Diagnoses / Procedures Referred By Contac t Referred To Contact XR IMAGING Diagnoses Mass of hand, right Procedures XR HAND GENERAL 3V PA/LAT/OBL RIGHT RADEX HAND MINIMUM 3 VIEWS Ramiro Bonilla MD [address] [place] [address] [place] [address] Referral ID Status Reason Start Date Expiration Date V isits Requested Visits Authorized [id number] Closed Auto-Generate d Referral 07/07/2021 08/06/2022 1 1 T [facility] for referral (narrative)* Diagnostic Procedure Only (Urgent) - Closed Specialty Diagnoses / Procedures Referred By Contac t Referred To Contact XR IMAGING Diagnoses Acute midline low back pain without sciatica Procedures XR LUMBAR GENERAL 3V AP/LAT/L5-S1 RADEX SPINE LUMBOSACRAL 2/3 VIEWS Janelle Prabhakar PA-C [address] [place] [address] [place] [address] Referral ID Status Reason Start Date Expiration Date V isits Requested Visits Authorized [id number] Closed Auto-Generate d Referral 09/18/2021 10/18/2022 1 1 [facility] for referral (narrative)No reason for referral information availableWMemorial Health [facility] Work Phone: [facility] N[facility]* Diagnostic Procedure Only (Routine) - Closed Specialty Diagnoses / Procedures Referred By Contac t Referred To Contact XR IMAGING Diagnoses Mass of hand, right Procedures XR HAND GENERAL 3V PA/LAT/OBL RIGHT RADEX HAND MINIMUM 3 VIEWS Ramiro Bonilla MD [address] [place] [address] [place] [address] Referral ID Status Reason Start Date Expiration Date V isits Requested Visits Authorized [id number] Closed Auto-Generate d Referral 07/07/2021 08/06/2022 1 1 [facility] for visit Narrative* Diagnostic Procedure Only (Urgent) - Closed Specialty Diagnoses / Procedures Referred By Contac t Referred To Contact XR IMAGING Diagnoses Acute midline low back pain without sciatica Procedures XR LUMBAR GENERAL 3V AP/LAT/L5-S1 RADEX SPINE LUMBOSACRAL 2/3 VIEWS Janelle Prabhakar PA-C [address] [place] [address] [place] [address] Referral ID Status Reason Start Date Expiration Date V isits Requested Visits Authorized [id number] Closed Auto-Generate d Referral 09/18/2021 10/18/2022 1 1 [facility] Summary Purpose Family History No Family History Records Found Relationship Condition Age at Onset Recorded Date/T rogelio mother Chronic obstructive pulmonary disease Unk nown Hypertension Unknown Diabetes mellitus Unknown father Hypertension Unknown Alcohol abuse Unknown Advance Directives No Advanced Directives Records Found Advance Directive Response Recorded Date/ Time Living Will No November 23, 2021 9:14pm Power of Director Of Teaching And Learning No November 23 9:14pm Advance Directive Response Recorded Date/ Time Living Will No March 06, 2 022 7:43pm Power of Director Of Teaching And Learning No March 06, 2022 7:43pm Advance Directive Response Recorded Date/ Time Living Will No September 23, 2022 9 :37pm Power of Director Of Teaching And Learning No September 23, 2022 9:37pm Advance Directive Response Recorded Date/ Time Living Will No September 24, 2022 1 2:44am Power of Director Of Teaching And Learning No September 24, 2022 12:44am Advance Directive Response Recorded Date/ Time Living Will No September 25, 2022 1 1:11am Power of Director Of Teaching And Learning No September 25, 2022 11:11am Advance Directive Response Recorded Date/ Time Name of Medical Power of Director Of Teaching And Learning PT UNSURE. October 02, 2022 5:28pm Name of Medical Power of Director Of Teaching And Learning Dory October 06, 2022 8:22pm Living Will Yes October 06, 2022 8:22pm Power of Director Of Teaching And Learning Yes October 06 8:22pm Advance Directive Response Recorded Date/ Time Living Will No April 19, 2 023 7:08pm Power of Director Of Teaching And Learning No April 19, 2023 7:08pm Advance Directive Response Recorded Date/ Time Do you have a Healthcare Power of Director Of Teaching And Learning? No August 27, 2024 10:24am Chief Complaint [...] Visit Admit Date Incarcerated umbilical hernia August 27, 2 025 1:27pm Chief Complaint Admit Date ABD PAIN, HERNIA August 27, 2024 12:59p m INCARCERATED HERNIA August 27, 2024 4:18pm INCARCERATED HERNIA August 28, 2024 6:46am INCARCERATED HERNIA August 29, 2024 9:32am Reason for Visit Admit Date Incarcerated umbilical hernia August 27, 2 025 4:18pm Chief Complaint Admit Date ABD PAIN, HERNIA August 27, 2024 12:59p m INCARCERATED HERNIA August 27, 2024 4:18pm INCARCERATED HERNIA August 28, 2024 6:46am INCARCERATED HERNIA August 29, 2024 9:32am ANXIETY December 08, 2024 2: 02pm Reason for Referral Specialty Diagnoses / Procedures Referred By Contmariposa t Referred To Contact Physical Therapy Diagnoses Lumbar pain DDD (degenerative disc disease), lumbar Lumbar radiculitis Procedures [place] OFFICE/OUTPATIENT [facility] 60 MINUTES Celina Bliss MD [address] [place] [address] [place] [address] Referral ID Status Reason Start Date Expiration Date Visits Requested Visits Authorized [id number] Authorized Specialty Services Required 08/03/2023 08/02/2024 2 2 Additional Source Comments (unrecognized sect ion and content) No Status Records FoundNo Status Records FoundNo Status Records FoundNo Status Records FoundNo Status Records Found INFORMATION SOURCE (unrecogn ized section and content) DATE CREATED AUTHOR 07/01/2021 [facility] DATE CREATED AUTHOR AUTHOR'S ORGANIZ ATION 07/29/2022 [facility] DATE CREATED AUTHOR AUTHOR'S ORGANIZ ATION 08/09/2023 [facility] DATE CREATED AUTHOR AUTHOR'S ORGANIZ ATION 10/18/2023 [facility] DATE CREATED AUTHOR AUTHOR'S ORGANIZ ATION [facility]/27/2025 [facility] Source Comments (unrecognize d section and content) In the event this informatio n is protected by the Federal Confidentiality of Alcohol and Drug Abuse Patient Records regulations: The Federal rules restrict any use of the information to criminally investigate or prosecute any alcohol or drug abuse patient.[facility] the event this information is protected by the Federal Confidentiality of Alcohol and Drug Abuse Patient Records regulations: The Federal rules restrict any use of the information to criminally investigate or prosecute any alcohol or drug abuse patient.[facility] the event this information is protected by the Federal Confidentiality of Alcohol and Drug Abuse Patient Records regulations: The Federal rules restrict any use of the information to criminally investigate or prosecute any alcohol or drug abuse patient.[facility] the event this information is protected by the Federal Confidentiality of Alcohol and Drug Abuse Patient Records regulations: The Federal rules restrict any use of the information to criminally investigate or prosecute any alcohol or drug abuse patient.[facility] the event this information is protected by the Federal Confidentiality of Alcohol and Drug Abuse Patient Records regulations: The Federal rules restrict any use of the information to criminally investigate or prosecute any alcohol or drug abuse patient.[facility] the event this information is protected by the Federal Confidentiality of Alcohol and Drug Abuse Patient Records regulations: The Federal rules restrict any use of the information to criminally investigate or prosecute any alcohol or drug abuse patient.[facility] the event this information is protected by the Federal Confidentiality of Alcohol and Drug Abuse Patient Records regulations: The Federal rules restrict any use of the information to criminally investigate or prosecute any alcohol or drug abuse patient.[facility] the event this information is protected by the Federal Confidentiality of Alcohol and Drug Abuse Patient Records regulations: The Federal rules restrict any use of the information to criminally investigate or prosecute any alcohol or drug abuse patient.[facility] Reason for Visit (unrecogniz ed section [...] Pain Specialty Diagnoses / Procedures Referred By Contac t Referred To Contact Orthopedic Surgery Diagnoses Sciatica, unspecified side Low back pain, unspecified Procedures [place] OFFICE/OUTPATIENT NEW MODERATE MDM 45 MINUTES Ankush Ann, PENCILLER - OPERATIONS COORDINATOR [address] [place] [address] Anna Marie Echeverria NP [address] [address] Referral ID Status Reason Start Date Expiration Date Visits Re quested Visits Authorized [id number] Closed 07/30/2023 07/29/2024 1 1 Reason Comments infected stitch left hand Stitches place d at [facility] 6 days ago-very sore Care Teams (unrecognized sec tion and content) Collar Sewer Relationship Specialty Start Date End Date Alesha Davenport MD [address] [place] [address] PCP - General Internal Medicine 07/13/21 Collar Sewer Relationship Specialty Start Date End Date Alesha Davenport MD [address] [place], [place] [id number] PCP - General Internal Medicine 07/13/21 Collar Sewer Relationship Specialty Start Date End Date Alesha Davenport MD [address] [place], [place] [id number] PCP - General Internal Medicine 07/13/21 Team Status: Active Member Role Status Dates [facility] Primary Care Provider A ctive Team Status: Inactive Member Role Status Dates [facility] Primary Care Provider A ctive Dr. Franklyn Callahan , DO Emergency Provider Active Team Status: Inactive Member Role Status Dates [facility] Primary Care Provider A ctive Dr. Franklyn Callahan DO Attending Provider Active Team Status: Inactive Member Role Status Dates [facility] Primary Care Provider A ctive Dr. Damien Stanton MD Emergency Provider Active Team Status: Inactive Member Role Status Dates [facility] Primary Care Provider A ctive Dr. Franklyn Callahan DO Attending Provider, Emergency Pr ovider Active Team Status: Inactive Member Role Status Dates [facility] Primary Care Provider A ctive Dr. Damien Stanton MD Attending Provider, Emergency Pr ovider Active Team Status: Inactive Member Role Status Dates [facility] Primary Care Provider A ctive Dr. Larry Welch DO Attending Provider, Emergency P roliberty Active Team Status: Inactive Member Role Status [facility] Primary Care Provider A ctive Patrick Ricardo MD Attending Provider, Emergency Provid er Active Team Status: Inactive Member Role Status Dates [facility] Primary Care Provider A ctive Patrick Ricardo MD Emergency Provider Active Team Status: Active Member Role Status Dates [facility] Primary Care Provider A ctive Dr. Camilo Verdugo MD Emergency Provider Active Dr. Helen Villa MD Admit Provider, Other Provider Active Dr. Jeanette Tripathi DO Attending Provider, Other Provide r Active Team Status: Inactive Member Role Status [facility] Primary Care Provider A ctive Dr. Camilo Verdugo MD Emergency Provider Active Dr. Helen Villa MD Admit Provider, Other Provider Active Dr. Jeanette Tripathi DO Attending Provider Active [employer] Relationship Specialty Start Date End Date Ankush Ann, PENCILLER - OPERATIONS COORDINATOR [id number] [place] [address] PCP - General Nurse Practitioner 08/08/23 Team Status: Active Member Role Status Dates [facility] Primary Care Provider A ctive Start: August 27, 2024 Dr. Isis De Jesus DO Emergency Provider Active Start: August 27, 2024 Dr. Demetrius Hernández MD Attending Provider Active Start: August 27, 2024 Team Status: Inactive Member Role Status Dates [facility] Primary Care Provider A ctive Start: [...] Team Status: Active Member Role Status Dates [facility] Primary Care Provider A ctive Start: August 28, 2024 Dr. Isis De Jesus DO Emergency Provider Active Start: August 28, 2024 Dr. Demetrius Hernández MD Admit Provider Active Start: August 28, 2024 Dr. Demetrius Hernández MD Attending Provider Active Start: August 28, 2024 Dr. Demetrius Hernández MD Other Provider Active Start: August 28, 2024 Team Status: Active Member Role Status Dates [facility] Primary Care Provider A ctive Start: August 29, 2024 Dr. Isis De Jesus DO Emergency Provider Active Start: August 29, 2024 Dr. Demetrius Hernández MD Admit Provider Active Start: August 29, 2024 Dr. Demetrius Hernández MD Attending Provider Active Start: August 29, 2024 Dr. Demetrius Hernández MD Other Provider Active Start: August 29, 2024 Team Status: Active Member Role/Relationship Status Dates [facility] Primary Care Provider A ctive Team Status: Active Member Role/Relationship Status Dates [facility] Primary Care Provider A ctive Start: August 27, 2024 Dr. Issi De Jesus DO Emergency Provider Active Start: August 27, 2024 Dr. Demetrius Hernández MD Attending Provider Active Start: August 27, 2024 Team Status: Inactive Member Role/Relationship Status Dates [facility] Primary Care Provider A ctive Start: [...] Team Status: Active Member Role/Relationship Status Dates [facility] Primary Care Provider A ctive Start: August 28, 2024 Dr. Isis De Jesus DO Emergency Provider Active Start: August 28, 2024 Dr. Demetrius Hernández MD Admit Provider Active Start: August 28, 2024 Dr. Demetrius Hernández MD Attending Provider Active Start: August 28, 2024 Dr. Demetrius Hernández MD Other Provider Active Start: August 28, 2024 Team Status: Active Member Role/Relationship Status Dates [facility] Primary Care Provider A ctive Start: August 29, 2024 Dr. Isis De Jesus DO Emergency Provider Active Start: August 29, 2024 Dr. Demetrius Hernández MD Admit Provider Active Start: August 29, 2024 Dr. Demetrius Hernández MD Attending Provider Active Start: August 29, 2024 Dr. Demetrius Hernández MD Other Provider Active Start: August 29, 2024 Team Status: Inactive Member Role/Relationship Status Dates [facility] Primary Care Provider A ctive Start: [...] BE BASED ON THE PRIMARY CLINICAL RECORDS. [facility] [employer] [facility]. provides no warranty or guarantee of the accuracy or completeness of information in this document.
[2025-04-09 21:21] LABS: Prothrombin Time (Protime)PT. 13.8 SECONDS (11.7-14.9)
[2025-04-09 21:22] LABS: Partial Thromboplast Time 27.6 Seconds (24.1-36.2)
--- NOTE | 2025-04-09 21:52 | RAD_ITS ---
PROCEDURE: CHEST 1 VIEW (PORTABLE) 04/09/2025 REASON FOR EXAM: COUGH TECHNIQUE: Frontal view of the chest. COMPARISON: 04/19/2023 FINDINGS: Lungs/Pleura: Clear. Heart/Mediastinum: Within normal limits. Bones/Soft tissues: Mild degenerative changes of the spine. Chronic deformities of the bilateral distal clavicles with widening of the right AC joint likely related to remote injury. RAD/Chest 1 View (Portable) IMPRESSION: No acute pulmonary disease. Reading Location: [id number]
[2025-04-09 22:11] LABS: AST(SGOT) 27 U/L (<=37); Alanine Aminotransfer ALT/SGPT 22 U/L (<=46); Albumin, Serum 3.9 g/dL (3.5-5.0); Alkaline Phosphatase 78 U/L (40-129); Anion Gap 15 (5-15); BUN 12 mg/dL (4-19); BUN/Creat Ratio 10.1 RATIO (10-20); Calcium,Total 9.0 mg/dL (7.6-11.0); Carbon Dioxide 21.0 mmol/L (21.0-32.0); Chloride 101 mmol/L (98-108); Estimated Creatinine Clearance 83.66 ml/min (50-250); Globulin 2.9 g/dL (2.2-4.2); Glucose 115 mg/dL (70-99); Potassium 3.4 mmol/L (3.3-5.1); Troponin T High Sensitivity 24 ng/L (<=22)
[2025-04-09 22:22] LABS: Red Blood Cells-Urine 0 SEEN /hpf (0-5); Squamous Epithelial Cells - UA 0 SEEN /hpf (0-5)
[2025-04-09 22:25] LABS: Color, Urine Yellow (Yellow); Glucose, Dipstick Normal (Normal); Ketone-Dipstick Negative (Negative); Leukocyte Esterase-Dipstick Negative /ul (Negative); Nitrite-Dipstick Negative (Negative); Occult Blood-Urine Negative /ul (Negative); Protein-Dipstick Negative (Negative); Specific Gravity, Urine 1.010 (1.002-1.030); Urine Bilirubin Dipstick Negative (Negative)
[2025-04-09 22:32] LABS: Mucous, Urine 1+ /hpf (<or=2+)
--- NOTE | 2025-04-09 22:41 | EX.ED.DYSGE1 ---
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 Patient states over the past several days he has been sick. He has been incarcerated at the [facility] skilled nursing since the beginning of February. Patient states he was prescribed a decongestant and antibiotic but he does not know what. He states he has had prior syncope when he has been ill before. EMS notes a blood pressure systolically of 50. Patient denies any other ingestions (intentional). He endorses no suicidality. No reported fevers. No diarrhea. He states that he has been trying to drink fluids. At the time that his blood pressure went low he states he had been sitting he stood up to walk away. He notes that the past couple nights when he is developed a fever he has felt his heart racing. No reported seizure hx [facility] Medical History Nicotine vapor product user Anxiety and depression Cannabis abuse Autism Schizophrenia Tobacco use History of alcohol abuse Alcohol abuse Cataract (lens) fragments in eye following cataract surgery, bilateral Home Medications ?Medication ?Instructions ?Recorded ?Last Taken ?Type fluoxetine 40 mg capsule 40 mg PO DAILY 11/23/21 08/26/24 History omega 3-dwz-mad-fish oil 1,000 mg 1 cap PO BID 10/02/22 08/26/24 History (120 mg-180 mg) capsule zolpidem 10 mg tablet 10 mg PO QPM 10/20/23 08/26/24 History prazosin 1 mg capsule 1 mg PO QHS 01/01/24 08/26/24 History azithromycin 250 mg tablet 250 mg PO DAILY 04/09/25 Unknown History bupropion HCl 100 mg tablet 300 mg PO DAILY 04/09/25 Unknown History cholecalciferol (vitamin D3) 25 25 mcg PO DAILY 04/09/25 Unknown History mcg (1,000 unit) tablet cyanocobalamin (vitamin B-12) 1,000 mcg PO DAILY 04/09/25 Unknown History 1,000 mcg tablet gabapentin 300 mg tablet,extended 300 mg PO QPM 04/09/25 Unknown History release 24 hr lorazepam 0.5 mg tablet 0.5 mg PO DAILY PRN anxiety 04/09/25 Unknown History meloxicam 7.5 mg tablet 7.5 mg PO BID PRN 04/09/25 Unknown History Allergy/AdvReac Type Severity Reaction Status Date / Time No Known Allergies Allergy Verified 04/09/25 19:53 Family History Mother COPD (chronic obstructive pulmonary disease) Hypertension Diabetes Father Hypertension Alcohol abuse Surgical History History of shoulder surgery History of tonsillectomy and adenoidectomy H/O cataract removal with insertion of prosthetic lens Social History household members: friend(s) Smoking Status: Current some day smoker tobacco type: cigarettes and e-cigarettes Electronic Cigarette Use: with nicotine how long ago did patient quit smoking: Cigarette->vaping several yrs, uses heavy. alcohol intake: current alcohol intake frequency: 3 or more drinks per day details: Reports binging history. substance use type: marijuana ROS ROS ED Constitutional Constitutional ED: Reports chills; Denies fever(s) or weight loss Eyes Eyes: Denies change in vision or diplopia ENT ENT ED: Reports rhinorrhea; Denies ear pain or sore throat Cardiovascular Cardiovascular: Reports other Details: Syncope ; Denies chest pain, orthopnea, palpitations or racing heartbeat Respiratory/Chest Respiratory/Chest: Reports cough; Denies dyspnea or orthopnea Gastrointestinal Gastrointestinal: Denies abdominal pain, diarrhea, nausea or vomiting Genitourinary Genitourinary ED: Denies dysuria, hematuria or urinary frequency Musculoskeletal Musculoskeletal: Denies arthralgias or myalgias Integumentary Denies abscess or rash Neurologic Neurologic: Denies headache(s) or weakness Psychiatric Psychiatric: Denies anxiety, depression, suicidal ideation or suicidal thoughts Endocrine Endocrinology: Denies polydipsia, polyphagia or polyuria Allergic/Immunologic Allergic/Immunologic ED: Denies mouth swelling, tongue swelling or urticaria EXAM Physical Exam Const Vital Signs: 04/09/25 19:49 04/09/25 20:01 04/09/25 20:05 Temperature 97.6 F L Temperature Source Oral Pulse Rate 64 Pulse Rate [Lying] Pulse Rate [Sitting (for 1 minute prior to obtaining)] Pulse Rate [Standing (for 1 minute prior to obtaining)] Respiratory Rate 18 Blood Pressure 69/48 L 77/49 L 87/50 L Blood Pressure [Lying] Blood Pressure [Sitting (for 1 minute prior to obtaining)] Blood Pressure [Standing (for 1 minute prior to obtaining)] Blood Pressure Mean 55 58 62 Blood Pressure Mean [Lying] Blood Pressure Mean [Sitting (for 1 minute prior to obtaining)] Blood Pressure Mean [Standing (for 1 minute prior to obtaining)] Pulse Ox 98 Oxygen Delivery Method Room Air 04/09/25 20:53 04/09/25 21:00 04/09/25 22:00 Temperature 97.7 F L 97.6 F L Temperature Source Oral Temporal Pulse Rate 61 57 L Pulse Rate [Lying] Pulse Rate [Sitting (for 1 minute prior to obtaining)] Pulse Rate [Standing (for 1 minute prior to obtaining)] Respiratory Rate 16 14 Blood Pressure 117/69 93/67 116/69 Blood Pressure [Lying] Blood Pressure [Sitting (for 1 minute prior to obtaining)] Blood Pressure [Standing (for 1 minute prior to obtaining)] Blood Pressure Mean 85 75 84 Blood Pressure Mean [Lying] Blood Pressure Mean [Sitting (for 1 minute prior to obtaining)] Blood Pressure Mean [Standing (for 1 minute prior to obtaining)] Pulse Ox 96 95 Oxygen Delivery Method Room Air Room Air 04/09/25 22:00 04/09/25 23:00 04/09/25 23:16 Temperature 97.6 F L Temperature Source Oral Pulse Rate 58 L 64 Pulse Rate [Lying] 65 Pulse Rate [Sitting (for 1 minute prior to obtaining)] 66 Pulse Rate [Standing (for 1 minute prior to obtaining)] 72 Respiratory Rate 14 Blood Pressure 125/71 H Blood Pressure [Lying] 135/64 H Blood Pressure [Sitting (for 1 minute prior to obtaining)] 113/61 Blood Pressure [Standing (for 1 minute prior to obtaining)] 96/50 L Blood Pressure Mean 89 Blood Pressure Mean [Lying] 87 Blood Pressure Mean [Sitting (for 1 minute prior to obtaining)] 78 Blood Pressure Mean [Standing (for 1 minute prior to obtaining)] 65 Pulse Ox 95 Oxygen Delivery Method Room Air 04/09/25 23:18 Temperature Temperature Source Pulse Rate 65 Pulse Rate [Lying] Pulse Rate [Sitting (for 1 minute prior to obtaining)] Pulse Rate [Standing (for 1 minute prior to obtaining)] Respiratory Rate Blood Pressure 135/64 H Blood Pressure [Lying] Blood Pressure [Sitting (for 1 minute prior to obtaining)] Blood Pressure [Standing (for 1 minute prior to obtaining)] Blood Pressure Mean 87 Blood Pressure Mean [Lying] Blood Pressure Mean [Sitting (for 1 minute prior to obtaining)] Blood Pressure Mean [Standing (for 1 minute prior to obtaining)] Pulse Ox 100 Oxygen Delivery Method Room Air Positive well nourished and well developed General Appearance ED: well developed and NAD HEENT Reports normocephalic, head/scalp atraumatic and moist mucous membranes Eyes PERRL and EOMs intact bilaterally Neck no lymphadenopathy, supple and no JVD Resp normal respiratory effort and clear to auscultation bilaterally Cardio regular rate, regular rhythm and no murmurs Rate: other Other Details: During my examination the patient's blood pressure is 90/50. He has delayed capillary refill of 4 seconds. GI normal to inspection, nondistended, normoactive bowel sounds and non-tender Palpation: soft Back/Spine no CVA tenderness and normal ROM Extremity normal to inspection General Extremety ED: Negative for edema General Extremity: Negative for edema Neuro oriented x3 and CN's II-XII intact bilaterally Sensorium / Orientation: alert Motor Exam: strength 5/5 throughout Psych mental status grossly normal Mood & Affect: Negative for depressed or tearful Skin no rashes or lesions noted and no wounds MDM MDM MDM Narrative Medical decision making narrative: Differential diagnosis includes but not limited to cardiac syncope vasovagal syncope dehydration electrolyte abnormalities acute kidney injury viral syndrome pneumonia sepsis anemia medication reaction pulmonary embolism I doubt pulmonary embolism he has no chest pain or shortness of breath no tachycardia. He had a surgery earlier this year but no leg swelling no known malignancy. Patient received IV fluids and his blood pressure responded appropriately currently 116/69 pulse of 58. He is remaining 95% on room air. My independent interpretation of the chest x-ray is no acute process. Urinalysis with specific gravity 1.01 no overt infection lactic acid is 1.9 initial troponin is 24 and second troponin is 18. White count 6.8 hemoglobin 12.3 platelet count of 212 normal electrolytes BUN 12 creatinine 1.19 normal LFTs. Patient underwent orthostatic testing. Blood pressure did drop into the 90s but he states that he felt fine. He is currently sitting up in bed and has no complaints. He said no events on the monitor. EKG is sinus. QT no significantly changed from prior. I spoke with the patient given the above results. He states that he feels good right now and would like to go back to skilled nursing. He states that when he stood up he did feel dizzy nauseous near syncopal. At this point I cannot explain his profound hypotension that persisted for around an hour. I spoke with the patient regarding admission and again he would prefer to go back to skilled nursing. At this point patient be discharged back to law enforcement custody. History & Record Review Discussion w/independent historian: EMS personnel and Patient Lab Data Attestation: I reviewed the patient's lab results. Labs: Laboratory Results - last 24 hr 04/09/25 04/09/25 04/09/25 19:58 20:08 22:06 WBC 6.8 RBC 4.19 L Hgb 12.3 L Hct 36.9 L MCV 88.1 MCH 29.4 MCHC 33.3 RDW Std Deviation 42.2 RDW Coeff of Danish 13.2 Plt Count 212 MPV 9.7 Immature Gran % (Auto) 0.300 Neut % (Auto) 48.5 Lymph % (Auto) 31.8 [place] % (Auto) 13.4 H Eos % (Auto) 4.7 Baso % (Auto) 1.3 H Absolute Neuts (auto) 3.3 Absolute Lymphs (auto) 2.16 Nucleated RBC % 0 PT 13.8 INR 1.0 APTT 27.6 Sodium 137 Potassium 3.4 Chloride 101 Carbon Dioxide 21.0 Anion Gap 15 BUN 12 Creatinine 1.19 Estim Creat Clear Calc 83.66 Est GFR (MDRD) Non-Af 71 BUN/Creatinine Ratio 10.1 Glucose 115 H Lactic Acid 1.9 Calcium 9.0 Total Bilirubin 0.42 AST 27 ALT 22 Alkaline Phosphatase 78 Troponin T High Sens 24 H Troponin T Hi Sens 2 Hr 18 Total Protein 6.8 Albumin 3.9 Globulin 2.9 Albumin/Globulin Ratio 1.4 Urine Color Urine Clarity Urine pH Ur Specific [place] Urine Protein Urine Glucose (UA) Urine Ketones Urine Occult Blood Urine Nitrite Urine Bilirubin Urine Urobilinogen Ur Leukocyte Esterase Urine RBC Urine WBC Ur Squamous Epith Cells Urine Bacteria Urine Mucus 04/09/25 22:16 WBC RBC Hgb Hct MCV MCH MCHC RDW Std Deviation RDW Coeff of Danish Plt Count MPV Immature Gran % (Auto) Neut % (Auto) Lymph % (Auto) [place] % (Auto) Eos % (Auto) Baso % (Auto) Absolute Neuts (auto) Absolute Lymphs (auto) Nucleated RBC % PT INR APTT Sodium Potassium Chloride Carbon Dioxide Anion Gap BUN Creatinine Estim Creat Clear Calc Est GFR (MDRD) Non-Af BUN/Creatinine Ratio Glucose Lactic Acid Calcium Total Bilirubin AST ALT Alkaline Phosphatase Troponin T High Sens Troponin T Hi Sens 2 Hr Total Protein Albumin Globulin Albumin/Globulin Ratio Urine Color Yellow Urine Clarity Clear Urine pH 6.0 Ur Specific [place] 1.010 Urine Protein Negative Urine Glucose (UA) Normal Urine Ketones Negative Urine Occult Blood Negative Urine Nitrite Negative Urine Bilirubin Negative Urine Urobilinogen Normal Ur Leukocyte Esterase Negative Urine RBC 0 SEEN Urine WBC 0 SEEN Ur Squamous Epith Cells 0 SEEN Urine Bacteria RARE Urine Mucus 1+ Radiography Diagnostic Testing: Clinical Impression(s) from Imaging Studies Chest X-Ray 04/09/25 21:52 IMPRESSION: No acute pulmonary disease. Reading Location: [facility] EK Initial EKG: Attestation: I personally reviewed and interpreted this EKG as follows: Comments: Sinus bradycardia ventricular rate of [address] segments. Prior EKG tracings: available for review Prior: Unchanged Discharge Plan Triage Chief Complaint: Syncope ED Provider: Marco Hayes Dx/Rx/DC Orders Clinical Impression: Syncope, Acute hypotension, Acute viral syndrome Instructions: ED Low Blood Pressure, All Causes, ED Fainting, Uncertain Cause Prescriptions: No Action fluoxetine 40 mg capsule 40 mg PO DAILY Patient Comments: TAKE 2 CAPSULES BY MOUTH ONCE DAILY prazosin 1 mg capsule 1 mg PO QHS Patient Comments: take 1 capsule daily at 2 pm and 2 capsules by mouth at bedtime omega 6-unk-ipr-fish oil 1,000 mg (120 mg-180 mg) capsule 1 cap PO BID Patient Comments: s/o unsure if pt. was getting in skilled nursing cyanocobalamin (vitamin B-12) 1,000 mcg tablet 1,000 mcg PO DAILY lorazepam 0.5 mg tablet 0.5 mg PO DAILY PRN (Reason: anxiety) cholecalciferol (vitamin D3) 25 mcg (1,000 unit) tablet 25 mcg PO DAILY meloxicam 7.5 mg tablet 7.5 mg PO BID PRN azithromycin 250 mg tablet 250 mg PO DAILY Rx Instructions: start on day 2 of therapy gabapentin 300 mg tablet extended release 24 hr 300 mg PO QPM bupropion HCl 100 mg tablet 300 mg PO DAILY zolpidem 10 mg tablet 10 mg PO QPM Primary Care Provider: Rosangela Ferrell Referrals: Rosangela Ferrell [Primary Care Provider, Medical] - As Needed Activity Restrictions/Additional Instructions: Continue to monitor your blood pressure. When you go from laying to sitting or sitting to standing please take your time. Make sure you drink plenty of fluids. If you are feeling worse or have concerns return to emergency Print Language: Romanian Disposition Disposition: Home, Self Care
[2025-04-09 22:51] LABS: Troponin T High Sens 2 HR 18 ng/L (<=22)
[2025-04-10 00:01] VITALS: BP 127/74; PULSE 68; RESP 18; TEMP 36.7; O2SAT 96
== END 2025-04-10 00:02 | disposition home or self-care (01) ==
PROVIDERS: Emergency Provider Emergency Medicine; Visit Provider Emergency Medicine
DX: R55 Syncope and collapse (principal); F20.9 Schizophrenia, unspecified; I95.9 Hypotension, unspecified; B34.9 Viral infection, unspecified; F17.210 Nicotine dependence, cigarettes, uncomplicated; F17.290 Nicotine dependence, other tobacco product, uncomplicated; Z79.899 Other long term (current) drug therapy
CPT/HCPCS: 71045; 80053; 81001; 83605; 84484; 85025; 85610; 85730; 87040; 87086; 87631; 93005; 96360; 96361; 99285; A4216